=== PATIENT | female | born 2000 | race Caucasian/White ===

== ENCOUNTER 2023-05-27 20:46 | Outpatient (REF) | payer BC, SELFPAY ==
[2023-06-01 11:20] LABS: Age Gdln ACOG Testing Note (.); IGP, rfx Aptima HPV ASCU Note (.)
== END 2023-05-27 20:47 | disposition home or self-care (01) ==
LOC: LAB 20:46
PROVIDERS: Visit Provider Obstetrics & Gynecology
DX: Z12.4 Encounter for screening for malignant neoplasm of cervix (principal); Z11.51 Encounter for screening for human papillomavirus (HPV)
CPT/HCPCS: G0145

== ENCOUNTER 2024-05-29 18:43 | Outpatient (REF) | payer BC, SELFPAY | END 2024-05-29 18:44 | disposition home or self-care (01) | LOC: LAB 18:43 | PROVIDERS: Visit Provider Physician Assistant | DX: Z01.419 Encounter for gynecological examination (general) (routine) without abnormal findings (principal) | CPT/HCPCS: 88175 ==

== ENCOUNTER 2024-07-03 20:38 | Outpatient (REF) | payer BC, SELFPAY | END 2024-07-03 20:39 | disposition home or self-care (01) | LOC: LAB 20:38 | PROVIDERS: Visit Provider Obstetrics & Gynecology | DX: R87.615 Unsatisfactory cytologic smear of cervix (principal) | CPT/HCPCS: 88175 ==

== ENCOUNTER 2025-03-19 08:09 | Outpatient (OUT) | payer BC, SELFPAY ==
--- OUTSIDE RECORDS SUMMARY | 2025-03-19 08:17 | XMS_ITS | CCD ---
Author Organization [facility] Care Team Providers Care Lead Case Manager Name Role Phone Mc RAY Primary Care Physician Danika RUTLEDGE Unavailable Mc Ray MD Primary Care Provider Mc RYA Attending Unavailable Mc RAY Attending Unavailable Mc RAY Attending Unavailable Mc RAY Attending Unavailable Mc RAY Attending Unavailable CARI LINDER Attending Unavailable JESSIE AL Attending Unavailable JESSIE AL Attending Unavailable Allergies Allergy Classification Reported Allergen(s) Allergy Type Date of Onset Reaction(s) Facility (1 source) Amoxicillin; Translations: [amoxicillin] Drug Allergy [facility] Repository (1 source) Clindamycin; Translations: [clindamycin] Drug Allergy [facility] Repository (1 source) Penicillins; Translations: [penicillins] Propensity to adverse reactions (disorder) [facility] Repository (1 source) No Known Medication Allergies; Translations: [No Known Medication Allergies] Propensity to adverse reactions (disorder) [facility] Repository Medications Current Medications Medication Drug Class(es) Dates Sig (Normalized) Sig (Original) etonogestrel 68 mg drug implant (16 sources) Progestin Start: 05-04-2020 inject 1 mg by subcutaneous injection once Nexplanon 68 mg subcutaneous implant mg EA, SubCutaneous, Once, Refills(s) 0 Start Date: 05/04/20 Status: Ordered End: 11-20-2024 etonogestrel-eluting ([place] non) 68 mg contraceptive implant 1 each by Implant route 1 (one) time 11/20/2024 Discontinued (Other) phentermine hydrochloride 37.5 mg oral tablet (14 sources) Sympathomimetic Amine Anorectic Start: 03-30-2024 take 1 tablet by mouth once daily Adipex-P 37.5 mg Tab 37.5 mg = 1 tab(s), Oral, Daily, # 30 tab(s), Refills(s) 0, Pharmacy: [facility] #[id number], 173, cm, 03/30/24 8:25:00 EDT, Height/Length Dosing, 91.2, kg, 03/30/24 8:25:00 EDT, Weight Dosing Start Date: 03/30/24 Status: Ordered Start: 03-06-2024 take 1 tablet by gregor th once daily Adipex-P 37.5 mg Tab 37.5 mg = 1 tab(s), Oral, Daily, # 30 tab(s), Refills(s) 0, Pharmacy: [facility][id number], 173, cm, 03/06/24 8:02:00 EDT, Height/Length Dosing, 91.7, kg, 03/06/24 8:02:00 EDT, Weight Dosing Start Date: 03/06/24 Status: Ordered Start: 02-03-2024 take 1 tablet by gregor once daily Adipex-P 37.5 mg Tab 37.5 mg = 1 tab(s), Oral, Daily, # 30 tab(s), Refills(s) 0, [id number], 173, cm, 02/03/24 8:01:00 EDT, Height/Length Dosing, 93, kg, 02/03/24 8:01:00 EDT, Weight Dosing Start Date: 02/03/24 Status: Ordered Start: 01-22-2023 End: 03-09-2025 take 1 tablet by mouth once daily Adipex-P 37.5 mg Tab 37.5 mg = 1 tab(s), Oral, Daily, # 30 tab(s), Refills(s) 0, Pharmacy: [facility] #[id number], 173, cm, 01/06/24 8:32:00 EST, Height/Length Dosing, 93, kg, 01/06/24 8:32:00 EST, Weight Dosing Start Date: 01/06/24 Status: Ordered Problems Active Problems Problem Classification Problem Date Documented Date Episodic/Chronic Contraceptive and procreative management (1 source) Subcutaneous contraceptive implant present; Translations: [Encounter for surveillance of implantable subdermal contraceptive] 11-20-2024 Episodic Menstrual disorders (1 source) Missed period; Translations: [Irregular menstruation, unspecified] 03-09-2025 Chronic Other and unspecified benign neoplasm (3 sources) Melanocytic nevus of face; Translations: [Melanocytic nevi of unspecified part of face] Onset: 01-22-2023 Episodic Other and unspecified benign neoplasm (4 sources) Benign neoplasm of skin of face 01-22-2023 Episodic Other circulatory disease (6 sources) 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 Other congenital anomalies (6 sources) Non-neoplastic nevus; Translations: [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 Other nutritional; endocrine; and metabolic disorders (20 sources) Obesity; Translations: [Other obesity] Onset: 01-14-2023 Chronic Other nutritional; endocrine; and metabolic disorders (13 sources) Obese class I; Translations: [Body mass index (BMI) 33.0-33.9, adult] Onset: 01-14-2023 Chronic Other nutritional; endocrine; and metabolic disorders (1 source) Overweight in adulthood with body mass index of 25 or more but less than 30; Translations: [Body mass index (BMI) 29.0-29.9, adult] Onset: 05-03-2023 Episodic Other nutritional; endocrine; and metabolic disorders (1 source) Overweight; Translations: [Overweight] Onset: 03-06-2024 Episodic Other and delivery including normal (2 sources) ; Translations: [Encounter for supervision of normal , unspecified, unspecified trimester] 03-09-2025 Episodic Other upper respiratory infections (2 sources) Acute upper respiratory infection; Translations: [Acute upper respiratory infection, unspecified] Onset: 11-04-2023 Episodic Past or Other Problems Problem Classification Problem Date Documented Da te Episodic/Chronic Other screening for suspected conditions (not mental disorders or infectious disease) (1 source) Patient encounter status; Translations: [Unsatisfactory cytologic smear of cervix] 07-03-2024 Episodic Unclassified (12 sources) Patient encounter status 01-14-2023 Results Test Name Value Interpretation Reference Range Facility US OB TRANSVAGINALon 025 US OB TRANSVAGINAL EXAM: US OB TRANSVAG INAL HISTORY: Dating. LMP 01/04/2025. G1. COMPARISON: None available TECHNIQUE: Two-dimensional transvaginal grayscale and color Doppler ultrasound imaging of the pelvis was performed. FINDINGS: The uterus and demonstrates a normal homogeneous echotexture. The cervical os is closed. The right ovary measures 3.8 x 2.2 x 3.8 cm and demonstrates a normal echotexture. There is normal color Doppler flow. The left ovary measures 2.8 x 1.8 x 2.6 cm and demonstrates a normal echotexture. There is normal color Doppler flow. No fluid is present within the cul-de-sac. There is a single, live intrauterine gestation identified with a heart rate of 154 beats per minute and a crown-rump length measurement of 1.3 cm, correlating to a gestational age of 7 weeks 4 days (+/- 5 days). There is no subchorionic hemorrhage visualized. A yolk sac is visualized. IMPRESSION: 1. Single, live intrauterine gestation 9 weeks, 1 days by LMP. Today's ultrasound measurements correlate with a gestational age of 7 weeks 4 days (+/- 5 days). EMILIE by today's ultrasound is 10/22/2025. 2. Normal color Doppler evaluation of the bilateral ovaries. Interpreted by: Electronically signed by ROSELINE CARL II, MD, PHD at 11-Mar-2025 08:55:38 PM [facility] Normal Not Available Comment on above: Order Comment: US OB TRANSVAGINAL No LMP recorded. Patient has had an implant. Insertion/Removal of Contrac eptive Capsuleon 11-20-2024 Shannon Tomas LPN 11/21/2024 8:37 AM Insertion/Removal of Contraceptive Capsule Date/Time: 11/20/2024 2:05 PM Performed by: Jessie Al DO Authorized by: Jessie Al DO Consent: Consent obtained: Written Consent given by: Patient Patient questions answered: yes Patient agrees, verbalizes understanding, and wants to proceed: yes Educational handouts given: no Instructions and paperwork completed: yes Indication: Indication: Presence of non-biodegradable drug delivery implant Pre-procedure: Pre-procedure timeout performed: yes Prepped with: alcohol 70% Local anesthetic: Lidocaine without epinephrine The site was cleaned and prepped in a sterile fashion: yes Procedure: Procedure: Removal Small stab incision was made in arm: yes Left/right: Left Site was closed with steri-strips and pressure bandage applied: yes [facility] JOANNA PAP IMAGE GUIDEDon 06-10 PAP IG (IMAGE GUIDED) Note . [facility] Comment on above: TESTS RESULT FLAG UN ITS REF RANGE LAB Clinician Provided Cytology Information Source.............Cervix;Endocervix No. of containers..01 ThinPrep Vial DIAGNOSIS: 01 NEGATIVE FOR INTRAEPITHELIAL LESION OR MALIGNANCY. Specimen adequacy: 01 Satisfactory for evaluation. Endocervical and/or squamous metaplastic cells (endocervical component) are present. Performed by: Trinity Schmidt, Purchasing/Receiving ([facility]) . 01 Note: Note 01 The Pap smear is a screening test designed to aid in the detection of premalignant and malignant conditions of the uterine cervix. It is not a diagnostic procedure and should not be used as the sole means of detecting cervical cancer. Both false-positive and false-negative reports do occur. Test Methodology: Note 01 This liquid based ThinPrep(R) pap test was screened with the use of an image guided system. FLAG LEGEND: L-Low Normal,H-High Normal,LL-Alert Low,HH-Alert High <-Panic Low,>-Panic High,A-Abnormal,AA-Critical Abnormal Performed at: [address] [place] [address], [address] [address] Gabi Graves MD, Performed at: [facility] Nathan Stringer [address] [id number] [employer]: Gabi Graves MD, Phone: [phone] BRUSH-SPATULA CERVIX ENDOCERVIX [facility] Ambulatory Visit Summaryon 0 05-04-2024 Ambulatory Visit Summary Ambulatory Visit Summary ALEJO OVERTON :2000 Visit Date:05/04/2024 Ambulatory Visit Instructions Your Diagnosis Compound nevus of face Class 1 obesity due to excess calories with serious comorbidity and body mass index (BMI) of 30.0 to 30.9 in adult BMI 30.0-30.9,adult, Body mass index [BMI] 30.0-30.9, adult Your Care Team Attending Physician - Mc RAY DO, FAAFP Primary Care Physician - Mc RAY DO, FAAFP This Is Your Medications List Contact prescribing physician if questions or concerns etonogestrel (Nexplanon 68 mg subcutaneous implant) phentermine (Adipex-P 37.5 mg Tab) Procedures Performed None. Discharge Vitals Temperature (Oral) 36.6 ?C Heart Rate (Peripheral) 78 Respiratory Rate 16 Blood Pressure 120/70 Height 173 cm Height 68 in Weight 90.8 kg Weight 199.76 lb BMI 30.34 What to do next You Need to Schedule the Following Appointments Follow Up with Mc RAY DO, FAAFP, DAE, PED When: In 6 months Where: [address] [facility], [place] [address]- Medications What How Much When Why Instructions Unchanged etonogestrel (Nexplanon 68 mg subcutaneous implant) Subcutaneous Once Contact prescribing physician if questions or concerns Unchanged phentermine (Adipex-P 37.5 mg Tab) 1 Tablets By Mouth Every day Other obesity Contact prescribing physician if questions or concerns Allergies No Known Medication Allergies Problems Ongoing - Any problem that you are currently receiving treatment for. Compound nevus of face Historical - Any problem that you are no longer receiving treatment for. Other obesity School physical exam Patient Survey You may receive a survey via text or e-mail asking about your office visit. Please share your experience with us by completing your survey. We appreciate your feedback and thank you for choosing us for your care. Education Materials Exercising to Lose Weight Getting regular exercise is important for everyone. It is especially important if you are overweight. Being overweight increases your risk of heart disease, stroke, diabetes, high blood pressure, and several types of cancer. Exercising, and reducing the calories you consume, can help you lose weight and improve fitness and health. Exercise can be moderate or vigorous intensity. To lose weight, most people need to do a certain amount of moderate or vigorous-intensity exercise each week. How can exercise affect me? You lose weight when you exercise enough to burn more calories than you eat. Exercise also reduces body fat and builds muscle. The more muscle you have, the more calories you burn. Exercise also: ? Improves mood. ? Reduces stress and tension. ? Improves your overall fitness, flexibility, and endurance. ? Increases bone strength. Moderate-intensity exercise Moderate-intensity exercise is any activity that gets you moving enough to burn at least three times more energy (calories) than if you were sitting. Examples of moderate exercise include: ? Walking a mile in 15 minutes. ? Doing light yard work. ? Biking at an easy pace. Most people should get at least 150 minutes of moderate-intensity exercise a week to maintain their body weight. Vigorous-intensity exercise Vigorous-intensity exercise is any activity that gets you moving enough to burn at least six times more calories than if you were sitting. When you exercise at this intensity, you should be working hard enough that you are not able to carry on a conversation. Examples of vigorous exercise include: ? Running. ? Playing a team sport, such as football, basketball, and soccer. ? Jumping rope. Most people should get at least 75 minutes a week of vigorous exercise to maintain their body weight. What actions can I take to lose weight? The amount of exercise you need to lose weight depends on: ? Your age. ? The type of exercise. ? Any health conditions you have. ? Your overall physical ability. Talk to your health care provider about how much exercise you need and what types of activities are safe for you. Nutrition ? Make changes to your diet as told by your health care provider or diet and energy efficiency specialist (dietitian). This may include: ? Eating fewer calories. ? Eating more protein. ? Eating less unhealthy fats. ? Eating a diet that includes fresh fruits and vegetables, whole grains, low-fat dairy products, and lean protein. ? Avoiding foods with added fat, salt, and sugar. ? Drink plenty of water while you exercise to prevent dehydration or heat stroke. Activity ? Choose an activity that you enjoy and set realistic goals. Your health care provider can help you make an exercise plan that works for you. ? Exercise at a moderate or vigorous intensity most days of the week. ? The intensity of exercise may (more content not included)... Normal [facility] Family Medicine Office/Clini c Noteon 05-04-2024 Family Medicine Office/Clinic Note Family Medicine Office/Clinic Note Chief Complaint Finished Adipex #6. Down another 1 lb. BMI- 30.34 History of Present Illness Pt denies any SE's from Adipex Denies any chest pain, pressure, SOB, insomnia nor headache Feels much better on the Adipex with more energy No constipation No difficulty with urination OARRS reviewed and no problems identified Review of Systems PHQ Score Initial Depression Screen Score: 0 SCORE ROS - Provider Constitutional: no fever, no chills, no sweats, no weakness. Skin: no Jaundice, no rash, no lesions, no petechiae. ENMT: no ear pain, no sore throat, no congestion, no hoarseness. Respiratory: no shortness of breath, no cough, no orthopnea, no wheezing. Cardiovascular: no chest pain, no palpitations, no edema. Gastrointestinal: no nausea, no vomiting, no diarrhea, no GI bleeding.no constipationnoheartburn Genitourinary: no dysuria, no hematuria, no discharge, no pain.nofreq/urgency Musculoskeletal: no back pain, no trauma.nojoint pain Neurologic: no headache, no dizziness, no numbness, no weakness. Psychiatric: no sleeping problems, no irritability, no mood swings/depression. Heme/Lymph: no bleeding tendency, no bruising tendency, no petechiae, no swollen lymph nodes no Allergy/Imunology no seasonal allergies, no food allergies, no recurrent infections, no impaired immunity. Additional ROS info: Except as noted in the above Review of Systems and in the History of Present Illness all other systems have been reviewed and are negative or noncontributory. Physical Exam Vitals & Measurements T: 36.6 ?C(Oral) HR: 78(Peripheral) RR: 16 BP: 120/70 SpO2: 99% HT: 68 in HT: 173 cm WT: 90.8 kg WT: 199.76 lb BMI: 30.34 General: Well developed, well nourished, in no acute distress Mouth: Mucous membranes moist. Normal oropharynx, and posterior pharynx without lesions or exudates. Tongue normal Neck: Neck supple. No masses or palpable cervical nodes. Trachea midline. Thyroid without nodules, masses, tenderness, or enlargement Lungs: Normal respiratory effort and clear to auscultation Cardio: Regular rate and rhythm, normal S1 and S2, no murmur, no rub Abdomen: Soft, non-distended, non-tender. no G/R/S/Masses Musculoskeletal: No deformity or scoliosis noted. Normal range of motion. Joints normal. No erythema, edema, effusion, or ecchymosis Extremity: No clubbing, cyanosis, edema, or deformity, with normal ROM in both upper and lower bilateral extremities Neurologic: Grossly normal Skin: No rashes, ulcerations, or suspicious lesions Mental Status: Alert and oriented x3. Normal mood and affect Assessment/Plan 1. 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 Class 1 obesity due to excess calories with serious comorbidity and body mass index (BMI) of 30.0 to 30.9 in adult (E66.09: Other obesity due to excess calories) Diet and exercise BMI: 25, unable to continue Adipex as has lost approximately 3% 3 months The standard range for ages 18 and older is >=18.5 and < 25 kg/m2. Your BMI today was above this range, this falls in the overweight to obese category and there are medical benefits to weight loss. We can offer counselling, referral, and/or medical support in addressing this problem. Your BMI and weight management will be followed at subsequent visits. 3. BMI 30.0-30.9,adult, (Z68.30: Body mass index [BMI] 30.0-30.9, adult)Body mass index [BMI] 30.0-30.9, adult Total time spent preparing the chart, conducting of the encounter with the patient and family and time spent documenting, reviewing, and ordering tests was 20 minutes. Follow-up With When Contact Information AURELIO BAJWA FAAFP, [place], DAE, PED In 6 months [address] [facility], [place] [address]- Additional Instructions: Patient Education Exercising to Lose Weight Problem List/Past Medical History Ongoing Compound nevus of face Historical Other obesity School physical exam Procedure/Surgical History None. Medications Adipex-P 37.5 mg Tab, 37.5 mg= 1 tab(s), Oral, Daily Nexplanon 68 mg subcutaneous implant, SubCutaneous, Once Allergies No Known Medication Allergies Social History Alcohol - Denies Alcohol Use, 05/04/2020 Tobacco - Denies Tobacco Use, 08/11/2021 Never (less than 100 in lifetime) Tobacco Use:. Never Smokeless Tobacco Use:., 05/04/2024 Family History Family history is negative Immunizations Vaccine Date Status Comments influenza virus vaccine, inactivated - Not Given Patient Refuses influenza virus vaccine, inactivated 09/18/2020 Recorded diphtheria/pertussis, acel/tetanus adult 05/04/2020 Given tetanus toxoid 05/04/2020 Recorded meningococcal group B vaccine 07/22/2017 Recorded meningococcal conjugate vaccine 07/22/2017 Recorded meningococcal conjugate vaccine 07/20/2012 Recorded human papillomavirus vaccine 07/20/2012 Recorded diphtheria/pertussis, acel/tetanus ped 0 (more content not included)... Normal [facility] Comment on above: Result Comment: Elec tronically Signed By: Mc RAY DO, FAAFP\.br\Date and Time Signed: 05/04/24 08:49 EDT Ambulatory Visit Summaryon 0 03-30-2024 Ambulatory Visit Summary ALEJO OVERTON :2000 Visit Date:03/30/2024 Ambulatory Visit Instructions Your Diagnosis Compound nevus of face Class 1 obesity due to excess calories with serious comorbidity and body mass index (BMI) of 30.0 to 30.9 in adult BMI 30.0-30.9,adult, Body mass index [BMI] 30.0-30.9, adult Other obesity Your Care Team Attending Physician - Mc RAY DO, FAAFP Primary Care Physician - Mc RAY DO, FAAFP This Is Your Medications List etonogestrel (Nexplanon 68 mg subcutaneous implant) phentermine (Adipex-P 37.5 mg Tab) Procedures Performed None. Discharge Vitals Temperature (Oral) 36.6 ?C Heart Rate (Peripheral) 80 Respiratory Rate 16 Blood Pressure 118/72 Height 173 cm Height 68 in Weight 91.2 kg Weight 200.64 lb BMI 30.47 What to do next Scheduled Follow-Up Appointments 2023 8:20 AM EDT With: Mc RAY DO, FAAFP Where: [facility] Primary Care Normal [facility] Family Medicine Office/Clini c Noteon 03-30-2024 Family Medicine Office/Clinic Note Chief Complaint Adipex #6. Down another 1 lb. BMI- 30.47 History of Present Illness Pt denies any SE's from Adipex Denies any chest pain, pressure, SOB, insomnia nor headache Feels much better on the Adipex with more energy No constipation No difficulty with urination OARRS reviewed and no problems identified Review of Systems PHQ Score Initial Depression Screen Score: 0 SCORE ROS - Provider Constitutional: no fever, no chills, no sweats, no weakness. Skin: no Jaundice, no rash, no lesions, no petechiae. ENMT: no ear pain, no sore throat, no congestion, no hoarseness. Respiratory: no shortness of breath, no cough, no orthopnea, no wheezing. Cardiovascular: no chest pain, no palpitations, no edema. Gastrointestinal: no nausea, no vomiting, no diarrhea, no GI bleeding.no constipationnoheartburn Genitourinary: no dysuria, no hematuria, no discharge, no pain.nofreq/urgency Musculoskeletal: no back pain, no trauma.nojoint pain Neurologic: no headache, no dizziness, no numbness, no weakness. Psychiatric: no sleeping problems, no irritability, no mood swings/depression. Heme/Lymph: no bleeding tendency, no bruising tendency, no petechiae, no swollen lymph nodes no Allergy/Imunology no seasonal allergies, no food allergies, no recurrent infections, no impaired immunity. Additional ROS info: Except as noted in the above Review of Systems and in the History of Present Illness all other systems have been reviewed and are negative or noncontributory. Physical Exam Vitals & Measurements T: 36.6 ?C(Oral) HR: 80(Peripheral) RR: 16 BP: 118/72 SpO2: 99% HT: 68 in HT: 173 cm WT: 91.2 kg WT: 200.64 lb BMI: 30.47 General: Well developed, well nourished, in no acute distress Mouth: Mucous membranes moist. Normal oropharynx, and posterior pharynx without lesions or exudates. Tongue normal Neck: Neck supple. No masses or palpable cervical nodes. Trachea midline. Thyroid without nodules, masses, tenderness, or enlargement Lungs: Normal respiratory effort and clear to auscultation Cardio: Regular rate and rhythm, normal S1 and S2, no murmur, no rub Abdomen: Soft, non-distended, non-tender. no G/R/S/Masses Musculoskeletal: No deformity or scoliosis noted. Normal range of motion. Joints normal. No erythema, edema, effusion, or ecchymosis Extremity: No clubbing, cyanosis, edema, or deformity, with normal ROM in both upper and lower bilateral extremities Neurologic: Grossly normal Skin: No rashes, ulcerations, or suspicious lesions except approximately 2 to 3 mm compound nevus left mid frontal area unchanged. Mental Status: Alert and oriented x3. Normal mood and affect Assessment/Plan 1. 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 Class 1 obesity due to excess calories with serious comorbidity and body mass index (BMI) of 30.0 to 30.9 in adult (E66.09: Other obesity due to excess calories) The standard range for ages 18 and older is >=18.5 and < 25 kg/m2. Your BMI today was above this range, this falls in the overweight to obese category and there are medical benefits to weight loss. We can offer counselling, referral, and/or medical support in addressing this problem. Your BMI and weight management will be followed at subsequent visits. 3. BMI 30.0-30.9,adult, (Z68.30: Body mass index [BMI] 30.0-30.9, adult)Body mass index [BMI] 30.0-30.9, adult The standard range for ages 18 and older is >=18.5 and < 25 kg/m2. Your BMI today was above this range, this falls in the overweight to obese category and there are medical benefits to weight loss. We can offer counselling, referral, and/or medical support in addressing this problem. Your BMI and weight management will be followed at subsequent visits. Other obesity (E66.8: Other obesity) Ordered: phentermine, 37.5 mg = 1 tab(s), Oral, Daily, # 30 tab(s), Refills(s) 0, Pharmacy: [facility][id number], 173, cm, 03/30/24 8:25:00 EDT, Height/Length Dosing, 91.2, kg, 03/30/24 8:25:00 EDT, Weight Dosing Total time spent preparing the chart, conducting of the encounter with the patient and family and time spent documenting, reviewing, and ordering tests was 20 minutes. Review of Prior External Notes and Results:The following documents and/or results were reviewed on this visit which are external to my provider group and/or outside of my specialty: Labs: _, _, _, _, _, _ Radiology: _, _, _, _, _, _, Records Reviewed: OARRS Reviewed, _, _, _, _, _, Other Testing: Follow-up With When Contact Information Mc RAY DO, FAAFP, DAE, PED In [address] [place] [address]- Additional Instructions: Patient Education BMI for Adults Problem List/Past Medical History Ongoing Compound nevus of face Historical Other obesity School physical exam Procedure/Surgical History None. Medications Adipex-P 37.5 mg Tab, 37.5 mg= 1 tab(s), Oral, Daily Nexplanon 68 mg subcutaneous implant, SubCutaneou (more content not included)... Normal [facility] Comment on above: Result Comment: Elec tronically Signed By: Mc RAY DO, FAAFP\.br\Date and Time Signed: 03/30/24 08:47 EDT Patient Educationon 03-30-20 Patient Education Nutrition BMI for Adults What is BMI? Body mass index (BMI) is a number that is calculated from a person's weight and height. BMI can help estimate how much of a person's weight is composed of fat. BMI does not measure body fat directly. Rather, it is an alternative to procedures that directly measure body fat, which can be difficult and expensive. BMI can help identify people who may be at higher risk for certain medical problems. What are BMI measurements used for? BMI is used as a screening tool to identify possible weight problems. It helps determine whether a person is obese, overweight, a healthy weight, or underweight. BMI is useful for: ? Identifying a weight problem that may be related to a medical condition or may increase the risk for medical problems. ? Promoting changes, such as changes in diet and exercise, to help reach a healthy weight. BMI screening can be repeated to see if these changes are working. How is BMI calculated? BMI involves measuring your weight in relation to your height. Both height and weight are measured, and the BMI is calculated from those numbers. This can be done either in [place] ([place] or metric measurements. Note that charts and online BMI calculators are available to help you find your BMI quickly and easily without having to do these calculations yourself. To calculate your BMI in [place] measurements: 1. Measure your weight in pounds (lb). 2. Multiply the number of pounds by 703. ? For example, for a person who weighs 180 lb, multiply that number by 703, which equals 126,540. 3. Measure your height in inches. Then multiply that number by itself to get a measurement called inches squared. ? For example, for a person who is 70 inches tall, the inches squared measurement is 70 inches x 70 inches, which equals 4,900 inches squared. 4. Divide the total from step 2 (number of lb x 703) by the total from step 3 (inches squared): 126,540 ? 4,900 = 25.8. This is your BMI. To calculate your BMI in metric measurements: 1. Measure your weight in kilograms (kg). 2. Measure your height in meters (m). Then multiply that number by itself to get a measurement called meters squared. ? For example, for a person who is 1.75 m tall, the meters squared measurement is 1.75 m x 1.75 m, which is equal to 3.1 meters squared. 3. Divide the number of kilograms (your weight) by the meters squared number. In this example: 70 ? 3.1 = 22.6. This is your BMI. What do the results mean? BMI charts are used to identify whether you are underweight, normal weight, overweight, or obese. The following guidelines will be used: ? Underweight: BMI less than 18.5. ? Normal weight: BMI between 18.5 and 24.9. ? Overweight: BMI between 25 and 29.9. ? Obese: BMI of 30 or above. Keep these notes in mind: ? Weight includes both fat and muscle, so someone with a muscular build, such as an athlete, may have a BMI that is higher than 24.9. In cases like these, BMI is not an accurate measure of body fat. ? To determine if excess body fat is the cause of a BMI of 25 or higher, further assessments may need to be done by a health care provider. ? BMI is usually interpreted in the same way for men and women. Where to find more information For more information about BMI, including tools to quickly calculate your BMI, go to these websites: ? Centers for Disease Control and Prevention: www.cdc.gov ? [place] [employer]: www.heart.org ? National Heart, Lung, and [facility] [place]: www.nhlbi.nih.gov Summary ? Body mass index (BMI) is a number that is calculated from a person's weight and height. ? BMI may help estimate how much of a person's weight is composed of fat. BMI can help identify those who may be at higher risk for certain medical problems. ? BMI can be measured using Indonesian measurements or metric measurements. ? BMI charts are used to identify whether you are underweight, normal weight, overweight, or obese. This information is not intended to replace advice given to you by your health care provider. Make sure you discuss any questions you have with your health care provider. Document Revised: 07/17/2020 Document Reviewed: 05/24/2020 [employer]in Patient Education ? [address] [facility] Ambulatory Visit Summaryon 0 03-06-2024 Ambulatory Visit Summary ALEJO OVERTON :2000 Visit Date:03/06/2024 Ambulatory Visit Instructions Your Diagnosis Compound nevus of face Overweight BMI 30.0-30.9,adult Other obesity Your Care Team Attending Physician - Mc RAY DO, FAAFP Primary Care Physician - Mc RAY DO, FAAFP This Is Your Medications List etonogestrel (Nexplanon 68 mg subcutaneous implant) phentermine (Adipex-P 37.5 mg Tab) Procedures Performed None. Discharge Vitals Temperature (Oral) 36.5 ?C Heart Rate (Peripheral) 76 Respiratory Rate 16 Blood Pressure 116/70 Height 173 cm Height 68 in Weight 91.7 kg Weight 201.74 lb BMI 30.64 What to do next Scheduled Follow-Up Appointments 2023 8:20 AM EDT With: Mc RAY DO, FAAFP Where: [facility] Normal [address] [place] [address]- \.br\ You Need to Schedule the Following Appointments\. br\ Follow Up with Mc RAY DO, FAAFP, DAE, PED When: In 1 month\.br\ Where:\.br\ [address]\ [place] [address].br\ \.br\ Medications\.b r\ What How Much When Why Instructions\. br\ Unchanged etonogestrel (Nexplanon 68 mg subcutaneous implant) Subcutaneous Once\.br\ Unchanged phentermine (Adipex-P 37.5 mg Tab) 1 Tablets By Mouth Every day Other obesity Pickup at [facility] #[id number]\.br\ Pharmacy Information\.b r\ [facility] #[id number]: [address], [place] [id number] [phone]\.br\ Allergies\.br\ No Known Medication Allergies\.br\ Problems\.br\ Ongoing - Any problem that you are currently receiving treatment for.\.br\ Compound nevus of face\.br\ Historical - Any problem that you are no longer receiving treatment for.\.br\ Other obesity\.br\ School physical exam\.br\ Patient Survey\.br\ You may receive a survey via text or e-mail asking about your office visit. Please share your experience with us by completing your survey. We appreciate your feedback and thank you for choosing us for your care.\.br\ Education Materials\.br\ Exercising to Lose Weight\.br\ Getting regular exercise is important for everyone. It is especially important if you are overweight. Being overweight increases your risk of heart disease, stroke, diabetes, high blood pressure, and several types of cancer. Exercising, and reducing the calories you consume, can help you lose weight and improve fitness and health.\.br\ Exercise can be moderate or vigorous intensity. To lose weight, most people need to do a certain amount of moderate or vigorous-inten sity exercise each week.\.br\ How can exercise affect me?\.br\ You lose weight when you exercise enough to burn more calories than you eat. Exercise also reduces body fat and builds muscle. The more muscle you have, the more calories you burn. Exercise also:\.br\ ? \.br\ Improves mood.\.br\ ? \.br\ Reduces stress and tension.\.br\ ? \.br\ Improves your overall fitness, flexibility, and endurance.\.br \ ? \.br\ Increases bone strength.\.br\ Moderate-inten sity exercise\.br\ \.br\ Moderate-inten sity exercise is any activity that gets you moving enough to burn at least three times more energy (calories) than if you were sitting.\.br\ Examples of moderate exercise include:\.br\ ? \.br\ Walking a mile in 15 minutes.\.br\ ? \.br\ Doing light yard work.\.br\ ? \.br\ Biking at an easy pace.\.br\ Most people should get at least 150 minutes of moderate-inten sity exercise a week to maintain their body weight.\.br\ Vigorous-inten sity exercise\.br\ Vigorous-inten sity exercise is any activity that gets you moving enough to burn at least six times more calories than if you were sitting. When you exercise at this intensity, you should be working hard enough that you are not able to carry on a conversation.\ .br\ Examples of vigorous exercise include:\.br\ ? \.br\ Running.\.br\ ? \.br\ Playing a team sport, such as football, basketball, and soccer.\.br\ ? \.br\ Jumping rope.\.br\ Most people should get at least 75 minutes a week of vigorous exercise to maintain their body weight.\.br\ What actions can I take to lose weight?\.br\ The amount of exercise you need to lose weight depends on:\.br\ ? \.br\ Your age.\.br\ ? \.br\ The type of exercise.\.br\ ? \.br\ Any health conditions you have.\.br\ ? \.br\ Your overall physical ability.\.br\ Talk to your health care provider about how much exercise you need and what types of activities are safe for you.\.br\ Nutrition\.br\ \.br\ ? \.br\ Make changes to your diet as told by your health care provider or diet and energy efficiency specialist (dietitian). This may include:\.br\ ? \.br\ Eating fewer calories.\.br\ ? \.br\ Eating more protein.\.br\ ? \.br\ Eating less unhealthy fats.\.br\ ? \.br\ Eating a diet that includes fresh fruits and vegetables, whole grains, low-fat dairy products, and lean protein.\.br\ ? \.br\ Avoiding foods with added fat, salt, and sugar.\.br\ ? \.br\ Drink plenty of water while you exercise to prevent dehydration or heat stroke.\.br\ Activity\.br\ ? \.br\ Choose an activity that you enjoy and set realistic goals. Your health care provider can help you make an exercise plan that works for you.\.br\ ? \.br\ Exercise at a moderate or vigorous intensity most days of the week.\.br\ ? \.br\ The intensity of exercise may vary from person to person. You can tell how intense a workout is for you by paying attention to your breathing and heartbeat. Most people will notice their breathing and heartbeat get faster with more intense exercise.\.br\ ? \.br\ Do resistance training twice each week, such as:\.br\ ? \.br\ Push-ups.\.br\ ? \.br\ Sit-ups.\.br\ ? \.br\ Lifting weights.\.br\ ? \.br\ Using resistance bands.\.br\ ? \.br\ Getting short amounts of exercise can be just as helpful as long, structured periods of exercise. If you have trouble finding time to exercise, try doing these things as part of your daily routine:\.br\ ? \.br\ Get up, stretch, and walk around every 30 minutes throughout the day.\.br\ ? \.br\ Go for a walk during your lunch break.\.br\ ? \.br\ Park your car farther away from your destination.\. br\ ? \.br\ If you take public transportation , get off one stop early and walk the rest of the way.\.br\ ? \.br\ Make phone calls while standing up and walking around.\.br\ ? \.br\ Take the stairs instead of elevators or escalators.\.b r\ ? \.br\ Wear comfortable clothes and shoes with good support.\.br\ ? \.br\ Do not exercise so much that you hurt yourself, feel dizzy, or get very short of breath.\.br\ Where to find more information\.b r\ ? \.br\ U.S. Department of Health and Human Services: www.[facility].gov\.b r\ ? \.br\ Centers for Disease Control and Prevention: www.cdc.gov\.b r\ Contact a health care provider:\.br\ ? \.br\ Before starting a new exercise program.\.br\ ? \.br\ If you have questions or concerns about your weight.\.br\ ? \.br\ If you have a medical problem that keeps you from exercising.\.b r\ Get help right away if:\.br\ ? \.br\ You have any of the following while exercising:\.b r\ ? \.br\ Injury.\.br\ ? \.br\ Dizziness.\.br \ ? \.br\ Difficulty breathing or shortness of breath that does not go away when you stop exercising.\.b r\ ? \.br\ Chest pain.\.br\ ? \.br\ Rapid heartbeat.\.br \ These symptoms may represent a serious problem that is an emergency. Do not wait to see if the symptoms will go away. Get medical help right away. Call your local emergency services (911 in the [place] Do not drive yourself to the hospital.\.br\ Summary\.br\ ? \.br\ Getting regular exercise is especially important if you are overweight.\.b r\ ? \.br\ Being overweight increases your risk of heart disease, stroke, diabetes, high blood pressure, and several types of cancer.\.br\ ? \.br\ Losing weight happens when you burn more calories than you eat.\.br\ ? \.br\ Reducing the amount of calories you eat, and getting regular moderate or vigorous exercise each week, helps you lose weight.\.br\ This information is not intended to replace advice given to you by your health care provider. [facility] Family Medicine Office/Clini c Noteon 03-06-2024 Family Medicine Office/Clinic Note Chief Complaint Adipex #5. Down 3 lbs. BMI- 30.64 History of Present Illness Pt denies any SE's from Adipex Denies any chest pain, pressure, SOB, insomnia nor headache Feels much better on the Adipex with more energy No constipation No difficulty with urination OARRS reviewed and no problems identified Here for follow up Have you had any ER visits or any hospitalizations since last visit? no Are you compliant with your medications and no difficulty affording your medications? yes Do you have side effects from the medication? no Are you compliant with your diet? yes Do you exercise? 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 Chest pain? no Palpitations? no MAZARIEGOS/SOB? no Orthopnea? no PND? no Edema? no Have you had any recent cardiopulmonary testing? no Review of Systems PHQ Score Initial Depression Screen Score: 0 SCORE ROS - Provider Constitutional: no fever, no chills, no sweats, no weakness. Skin: no Jaundice, no rash, no lesions, no petechiae. ENMT: no ear pain, no sore throat, no congestion, no hoarseness. Respiratory: no shortness of breath, no cough, no orthopnea, no wheezing. Cardiovascular: no chest pain, no palpitations, no edema. Gastrointestinal: no nausea, no vomiting, no diarrhea, no GI bleeding.no constipationnoheartburn Genitourinary: no dysuria, no hematuria, no discharge, no pain.nofreq/urgency Musculoskeletal: no back pain, no trauma.nojoint pain Neurologic: no headache, no dizziness, no numbness, no weakness. Psychiatric: no sleeping problems, no irritability, no mood swings/depression. Heme/Lymph: no bleeding tendency, no bruising tendency, no petechiae, no swollen lymph nodes no Allergy/Imunology no seasonal allergies, no food allergies, no recurrent infections, no impaired immunity. Additional ROS info: Except as noted in the above Review of Systems and in the History of Present Illness all other systems have been reviewed and are negative or noncontributory. Physical Exam Vitals & Measurements T: 36.5 ?C(Oral) HR: 76(Peripheral) RR: 16 BP: 116/70 SpO2: 99% HT: 68 in HT: 173 cm WT: 91.7 kg WT: 201.74 lb BMI: 30.64 General: Well developed, well nourished, in no acute distress Mouth: Mucous membranes moist. Normal oropharynx, and posterior pharynx without lesions or exudates. Tongue normal Neck: Neck supple. No masses or palpable cervical nodes. Trachea midline. Thyroid without nodules, masses, tenderness, or enlargement Lungs: Normal respiratory effort and clear to auscultation Cardio: Regular rate and rhythm, normal S1 and S2, no murmur, no rub Abdomen: Soft, non-distended, non-tender. no G/R/S/Masses Musculoskeletal: No deformity or scoliosis noted. Normal range of motion. Joints normal. No erythema, edema, effusion, or ecchymosis Extremity: No clubbing, cyanosis, edema, or deformity, with normal ROM in both upper and lower bilateral extremities Neurologic: Grossly normal Skin: No rashes, ulcerations, or suspicious lesions Mental Status: Alert and oriented x3. Normal mood and affect Assessment/Plan 1. 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 Overweight (E66.3: Overweight) Diet and exercise BMI goal of 25 along with Adipex working well 3. BMI 30.0-30.9,adult (Z68.30: Body mass index [BMI] 30.0-30.9, adult) The standard range for ages 18 and older is >=18.5 and < 25 kg/m2. Your BMI today was above this range, this falls in the overweight to obese category and there are medical benefits to weight loss. We can offer counselling, referral, and/or medical support in addressing this problem. Your BMI and weight management will be followed at subsequent visits. Other obesity (E66.8: Other obesity) Ordered: phentermine, 37.5 mg = 1 tab(s), Oral, Daily, # 30 tab(s), Refills(s) 0, Pharmacy: [facility] #[id number], 173, cm, 03/06/24 8:02:00 EDT, Height/Length Dosing, 91.7, kg, 03/06/24 8:02:00 EDT, Weight Dosing Review of Prior External Notes and Results:The following documents and/or results were reviewed on this visit which are external to my provider group and/or outside of my specialty: Labs: _, _, _, _, _, _ Radiology: _, _, _, _, _, _, Records Reviewed: OARRS Reviewed, _, _, _, _, _, Other Testing: Follow-up With When Contact Information Mc RAY DO, FAAFP, FAM, PED In 1 month [address], [place] [address]- Additional Instructions: Patient Education Exercising to Lose Weight Problem List/Past Medical History Ongoing Compound nevus of face Historical Other obesity School physical exam Procedure/Surgical History None. Medications Adipex-P 37.5 mg Tab, 37.5 mg= 1 tab(s), Oral, Daily Nexplanon 68 mg subcutaneous implant, SubCutaneous, Once Allergies No Known Medication Allergies Social History Alcohol - Denies (more content not included)... Normal [facility] Comment on above: Result Comment: Elec tronically Signed By: Mc RAY DO, FAAFP\.br\Date and Time Signed: 03/06/24 08:20 EDT Patient Educationon 03-06-20 24 Patient Education Physical Medicine an d Rehabilitation Exercising to Lose Weight Getting regular exercise is important for everyone. It is especially important if you are overweight. Being overweight increases your risk of heart disease, stroke, diabetes, high blood pressure, and several types of cancer. Exercising, and reducing the calories you consume, can help you lose weight and improve fitness and health. Exercise can be moderate or vigorous intensity. To lose weight, most people need to do a certain amount of moderate or vigorous-intensity exercise each week. How can exercise affect me? You lose weight when you exercise enough to burn more calories than you eat. Exercise also reduces body fat and builds muscle. The more muscle you have, the more calories you burn. Exercise also: ? Improves mood. ? Reduces stress and tension. ? Improves your overall fitness, flexibility, and endurance. ? Increases bone strength. Moderate-intensity exercise Moderate-intensity exercise is any activity that gets you moving enough to burn at least three times more energy (calories) than if you were sitting. Examples of moderate exercise include: ? Walking a mile in 15 minutes. ? Doing light yard work. ? Biking at an easy pace. Most people should get at least 150 minutes of moderate-intensity exercise a week to maintain their body weight. Vigorous-intensity exercise Vigorous-intensity exercise is any activity that gets you moving enough to burn at least six times more calories than if you were sitting. When you exercise at this intensity, you should be working hard enough that you are not able to carry on a conversation. Examples of vigorous exercise include: ? Running. ? Playing a team sport, such as football, basketball, and soccer. ? Jumping rope. Most people should get at least 75 minutes a week of vigorous exercise to maintain their body weight. What actions can I take to lose weight? The amount of exercise you need to lose weight depends on: ? Your age. ? The type of exercise. ? Any health conditions you have. ? Your overall physical ability. Talk to your health care provider about how much exercise you need and what types of activities are safe for you. Nutrition ? Make changes to your diet as told by your health care provider or diet and energy efficiency specialist (dietitian). This may include: ? Eating fewer calories. ? Eating more protein. ? Eating less unhealthy fats. ? Eating a diet that includes fresh fruits and vegetables, whole grains, low-fat dairy products, and lean protein. ? Avoiding foods with added fat, salt, and sugar. ? Drink plenty of water while you exercise to prevent dehydration or heat stroke. Activity ? Choose an activity that you enjoy and set realistic goals. Your health care provider can help you make an exercise plan that works for you. ? Exercise at a moderate or vigorous intensity most days of the week. ? The intensity of exercise may vary from person to person. You can tell how intense a workout is for you by paying attention to your breathing and heartbeat. Most people will notice their breathing and heartbeat get faster with more intense exercise. ? Do resistance training twice each week, such as: ? Push-ups. ? Sit-ups. ? Lifting weights. ? Using resistance bands. ? Getting short amounts of exercise can be just as helpful as long, structured periods of exercise. If you have trouble finding time to exercise, try doing these things as part of your daily routine: ? Get up, stretch, and walk around every 30 minutes throughout the day. ? Go for a walk during your lunch break. ? Park your car farther away from your destination. ? If you take public transportation, get off one stop early and walk the rest of the way. ? Make phone calls while standing up and walking around. ? Take the stairs instead of elevators or escalators. ? Wear comfortable clothes and shoes with good support. ? Do not exercise so much that you hurt yourself, feel dizzy, or get very short of breath. Where to find more information ? U.[place]. Department of Health and Human Services: www.hhs.gov ? Centers for Disease Control and Prevention: www.cdc.gov Contact a health care provider: ? Before starting a new exercise program. ? If you have questions or concerns about your weight. ? If you have a medical problem that keeps you from exercising. Get help right away if: ? You have any of the following while exercising: ? Injury. ? Dizziness. ? Difficulty breathing or shortness of breath that does not go away when you stop exercising. ? Chest pain. ? Rapid heartbeat. These symptoms may represent a serious problem that is an emergency. Do not wait to see if the symptoms will go away. Get medical help right away. Call your local emergency services (911 in the [place] Do not drive yourself to the hospital. Summary ? Getting regular exercise is e (more content not included)... Normal [facility] Ambulatory Visit Summaryon 0 02-03-2024 Ambulatory Visit Summary ALEJO OVERTON :2000 Visit Date:02/03/2024 Ambulatory Visit Instructions Your Diagnosis Compound nevus of face BMI 31.0-31.9,adult Other obesity Your Care Team Attending Physician - Mc RAY DO, FAAFP Primary Care Physician - Mc RAY DO, FAAFP This Is Your Medications List etonogestrel (Nexplanon 68 mg subcutaneous implant) phentermine (Adipex-P 37.5 mg Tab) Procedures Performed None. Discharge Vitals Temperature (Oral) 36.6 ?C Heart Rate (Peripheral) 80 Respiratory Rate 16 Blood Pressure 112/72 Height 173 cm Height 68 in Weight 93.0 kg Weight 204.6 lb BMI 31.07 Medications What How Much When Why Instructions Unchanged etonogestrel (Nexplanon 68 mg subcutaneous implant) Subcutaneous Once Unchanged phentermine (Adipex-P 37.5 mg Tab) 1 Tablets By Mouth Every day Other obesity Pickup at [id number] Pharmacy Information [id number]: [address], [place] [id number] [phone] Allergies No Known Medication Allergies Problems Ongoing - Any problem that you are currently receiving treatment for. Compound nevus of face Historical - Any problem that you are no longer receiving treatment for. Other obesity School physical exam Patient Survey You may receive a survey via text or e-mail asking about your office visit. Please share your experience with us by completing your survey. We appreciate your feedback and thank you for choosing us for your care. Normal [facility] Family Medicine Office/Clini c Noteon 02-03-2024 Family Medicine Office/Clinic Note Chief Complaint Adipex #4. Weight stayed the same. BMI- 31.07 History of Present Illness Pt denies any SE's from Adipex Denies any chest pain, pressure, SOB, insomnia nor headache Feels much better on the Adipex with more energy No constipation No difficulty with urination OARRS reviewed and no problems identified Review of Systems PHQ Score Initial Depression Screen Score: 0 SCORE ROS - Provider Constitutional: no fever, no chills, no sweats, no weakness. Skin: no Jaundice, no rash, no lesions, no petechiae. ENMT: no ear pain, no sore throat, no congestion, no hoarseness. Respiratory: no shortness of breath, no cough, no orthopnea, no wheezing. Cardiovascular: no chest pain, no palpitations, no edema. Gastrointestinal: no nausea, no vomiting, no diarrhea, no GI bleeding.no constipationnoheartburn Genitourinary: no dysuria, no hematuria, no discharge, no pain.nofreq/urgency Musculoskeletal: no back pain, no trauma.nojoint pain Neurologic: no headache, no dizziness, no numbness, no weakness. Psychiatric: no sleeping problems, no irritability, no mood swings/depression. Heme/Lymph: no bleeding tendency, no bruising tendency, no petechiae, no swollen lymph nodes no Allergy/Imunology no seasonal allergies, no food allergies, no recurrent infections, no impaired immunity. Additional ROS info: Except as noted in the above Review of Systems and in the History of Present Illness all other systems have been reviewed and are negative or noncontributory. Physical Exam Vitals & Measurements T: 36.6 ?C(Oral) HR: 80(Peripheral) RR: 16 BP: 112/72 SpO2: 97% HT: 68 in HT: 173 cm WT: 93.0 kg WT: 204.6 lb BMI: 31.07 General: Well developed, well nourished, in no acute distress Mouth: Mucous membranes moist. Normal oropharynx, and posterior pharynx without lesions or exudates. Tongue normal Neck: Neck supple. No masses or palpable cervical nodes. Trachea midline. Thyroid without nodules, masses, tenderness, or enlargement Lungs: Normal respiratory effort and clear to auscultation Cardio: Regular rate and rhythm, normal S1 and S2, no murmur, no rub Abdomen: Soft, non-distended, non-tender. no G/R/S/Masses Musculoskeletal: No deformity or scoliosis noted. Normal range of motion. Joints normal. No erythema, edema, effusion, or ecchymosis Extremity: No clubbing, cyanosis, edema, or deformity, with normal ROM in both upper and lower bilateral extremities Neurologic: Grossly normal Skin: No rashes, ulcerations, or suspicious lesions Mental Status: Alert and oriented x3. Normal mood and affect Assessment/Plan 1. 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 BMI 31.0-31.9,adult (Z68.31: Body mass index [BMI] 31.0-31.9, adult) The standard range for ages 18 and older is >=18.5 and < 25 kg/m2. Your BMI today was above this range, this falls in the overweight to obese category and there are medical benefits to weight loss. We can offer counselling, referral, and/or medical support in addressing this problem. Your BMI and weight management will be followed at subsequent visits. 3. Other obesity (E66.8: Other obesity) Diet and exercise BMI goal of 25, she has lost 5% of her body weight over the last 3 months and can continue Adipex if so desires, I went down to 1/2 tab per day Ordered: phentermine, 37.5 mg = 1 tab(s), Oral, Daily, # 30 tab(s), Refills(s) 0, Pharmacy: [facility] #[id number], 173, cm, 02/03/24 8:01:00 EDT, Height/Length Dosing, 93, kg, 02/03/24 8:01:00 EDT, Weight Dosing Follow-up With When Contact Information Mc RAY DO, FAAFP, FAM, PED In [address], [place] [address]- Additional Instructions: Patient Education Exercising to Lose Weight Problem List/Past Medical History Ongoing Compound nevus of face Historical Other obesity School physical exam Procedure/Surgical History None. Medications Adipex-P 37.5 mg Tab, 37.5 mg= 1 tab(s), Oral, Daily Nexplanon 68 mg subcutaneous implant, SubCutaneous, Once Allergies No Known Medication Allergies Social History Alcohol - Denies Alcohol Use, 05/04/2020 Tobacco - Denies Tobacco Use, 08/11/2021 Never (less than 100 in lifetime) Tobacco Use:. Never Smokeless Tobacco Use:., 02/03/2024 Family History Family history is negative Immunizations Vaccine Date Status Comments influenza virus vaccine, inactivated - Not Given Patient Refuses influenza virus vaccine, inactivated 09/18/2020 Recorded diphtheria/pertussis, acel/tetanus adult 05/04/2020 Given tetanus toxoid 05/04/2020 Recorded meningococcal group B vaccine 07/22/2017 Recorded meningococcal conjugate vaccine 07/22/2017 Recorded meningococcal conjugate vaccine 07/20/2012 Recorded human papillomavirus vaccine 07/20/2012 Recorded diphtheria/pertussis, acel/tetanus ped 07/20/2012 Recorded measles/mumps/rubella virus vaccine 04/03/2005 Recorded poliovirus vaccine, inactivated 04/03/ (more content not included)... Normal [facility] Comment on above: Result Comment: Elec tronically Signed By: Mc RAY DO, FAAFP\.br\Date and Time Signed: 02/03/24 08:35 EDT Patient Educationon 02-03-20 Patient Education Physical Medicine an d Rehabilitation Exercising to Lose Weight Getting regular exercise is important for everyone. It is especially important if you are overweight. Being overweight increases your risk of heart disease, stroke, diabetes, high blood pressure, and several types of cancer. Exercising, and reducing the calories you consume, can help you lose weight and improve fitness and health. Exercise can be moderate or vigorous intensity. To lose weight, most people need to do a certain amount of moderate or vigorous-intensity exercise each week. How can exercise affect me? You lose weight when you exercise enough to burn more calories than you eat. Exercise also reduces body fat and builds muscle. The more muscle you have, the more calories you burn. Exercise also: ? Improves mood. ? Reduces stress and tension. ? Improves your overall fitness, flexibility, and endurance. ? Increases bone strength. Moderate-intensity exercise Moderate-intensity exercise is any activity that gets you moving enough to burn at least three times more energy (calories) than if you were sitting. Examples of moderate exercise include: ? Walking a mile in 15 minutes. ? Doing light yard work. ? Biking at an easy pace. Most people should get at least 150 minutes of moderate-intensity exercise a week to maintain their body weight. Vigorous-intensity exercise Vigorous-intensity exercise is any activity that gets you moving enough to burn at least six times more calories than if you were sitting. When you exercise at this intensity, you should be working hard enough that you are not able to carry on a conversation. Examples of vigorous exercise include: ? Running. ? Playing a team sport, such as football, basketball, and soccer. ? Jumping rope. Most people should get at least 75 minutes a week of vigorous exercise to maintain their body weight. What actions can I take to lose weight? The amount of exercise you need to lose weight depends on: ? Your age. ? The type of exercise. ? Any health conditions you have. ? Your overall physical ability. Talk to your health care provider about how much exercise you need and what types of activities are safe for you. Nutrition ? Make changes to your diet as told by your health care provider or diet and energy efficiency specialist (dietitian). This may include: ? Eating fewer calories. ? Eating more protein. ? Eating less unhealthy fats. ? Eating a diet that includes fresh fruits and vegetables, whole grains, low-fat dairy products, and lean protein. ? Avoiding foods with added fat, salt, and sugar. ? Drink plenty of water while you exercise to prevent dehydration or heat stroke. Activity ? Choose an activity that you enjoy and set realistic goals. Your health care provider can help you make an exercise plan that works for you. ? Exercise at a moderate or vigorous intensity most days of the week. ? The intensity of exercise may vary from person to person. You can tell how intense a workout is for you by paying attention to your breathing and heartbeat. Most people will notice their breathing and heartbeat get faster with more intense exercise. ? Do resistance training twice each week, such as: ? Push-ups. ? Sit-ups. ? Lifting weights. ? Using resistance bands. ? Getting short amounts of exercise can be just as helpful as long, structured periods of exercise. If you have trouble finding time to exercise, try doing these things as part of your daily routine: ? Get up, stretch, and walk around every 30 minutes throughout the day. ? Go for a walk during your lunch break. ? Park your car farther away from your destination. ? If you take public transportation, get off one stop early and walk the rest of the way. ? Make phone calls while standing up and walking around. ? Take the stairs instead of elevators or escalators. ? Wear comfortable clothes and shoes with good support. ? Do not exercise so much that you hurt yourself, feel dizzy, or get very short of breath. Where to find more information ? [place] Department of Health and Human Services: www.hhs.gov ? Centers for Disease Control and Prevention: www.cdc.gov Contact a health care provider: ? Before starting a new exercise program. ? If you have questions or concerns about your weight. ? If you have a medical problem that keeps you from exercising. Get help right away if: ? You have any of the following while exercising: ? Injury. ? Dizziness. ? Difficulty breathing or shortness of breath that does not go away when you stop exercising. ? Chest pain. ? Rapid heartbeat. These symptoms may represent a serious problem that is an emergency. Do not wait to see if the symptoms will go away. Get medical help right away. Call your local emergency services (911 in the [place] Do not drive yourself to the hospital. Summary ? Getting regular exercise is e (more content not included)... Normal [facility] CHEMISTRYOrdered By: SYSTEM SYSTEM on 01-16-2023 Cholesterol [Mass/Vol] 140 mg/dL Normal 120 - 200 mg/dL FT Remisol Cholesterol in HDL [Mass/Vol] 51 mg/dL Invalid Interpretation Code FT Remisol Cholesterol in LDL [Mass/Vol] 88 mg/dL Normal <=129mg/dL FT [facility] Cholesterol in VLDL [Mass/Vol] 7 mg/dL Normal 7 - 40 mg/dL FT [facility] Glucose post fast [Mass/Vol] 99 mg/dL Normal 55 - 99 mg/dL FT [facility] Triglyceride [Mass/Vol] 37 mg/dL Normal <=149mg/dL FT Remisol Vital Signs Date Time Vital Sign Value Performing Clinician Facility 03-09-2025 09:18-040 Body mass index (BMI) [Ratio] 31.15 kg/m2 [facility] Nurse [facility] 03-09-2025 09:18-040 Body weight 98.48 kg [facility] Nurse [facility] 11-20-2024 13:47-0500 Body mass index (BMI) [Ratio] 29.99 kg/m2 Jessie Servando DO Work Phone: [facility] 11-20-2024 13:47-0500 Body weight 94.8 kg Jessie Servando DO Work Phone: [facility] 11-20-2024 13:47-0500 Diastolic blood pressure 76 mm[Hg] Jessie Servando DO Work Phone: [facility] 11-20-2024 13:47-0500 Systolic blood pressure 112 mm[Hg] Jessie Servando DO Work Phone: [facility] 07-03-2024 14:50-0400 Body mass index (BMI) [Ratio] 29.1 kg/m2 Jessie Servando DO Work Phone: [facility] 07-03-2024 14:50-0400 Body weight 91.99 kg Jessie Servando DO Work Phone: [facility] 07-03-2024 14:50-0400 Diastolic blood pressure 70 mm[Hg] Jessie Servando DO Work Phone: [facility] 07-03-2024 14:50-0400 Systolic blood pressure 112 mm[Hg] Jessie Al DO Work Phone: [facility] 05-04-2024 08:28-0400 Blood Pressure Location [facility] 05-04-2024 08:28-0400 Body temperature 97.88 [degF] [facility] 05-04-2024 08:28-0400 Diastolic blood pressure 70 mm[Hg] [facility] 05-04-2024 08:28-0400 Heart rate 78 /min [facility] 05-04-2024 08:28-0400 Respiratory rate 16 /min [facility] 05-04-2024 08:28-0400 SaO2% (BldA) [Mass fraction] 99 % [facility] 05-04-2024 08:28-0400 Systolic blood pressure 120 mm[Hg] [facility] 03-30-2024 08:18-0400 Blood Pressure Location [facility] 03-30-2024 08:18-0400 Body temperature 97.88 [degF] [facility] 03-30-2024 08:18-0400 Diastolic blood pressure 72 mm[Hg] [facility] 03-30-2024 08:18-0400 Heart rate 80 /min [facility] 03-30-2024 08:18-0400 Respiratory rate 16 /min [facility] 03-30-2024 08:18-0400 SaO2% (BldA) [Mass fraction] 99 % [facility] 03-30-2024 08:18-0400 Systolic blood pressure 118 mm[Hg] [facility] 03-06-2024 07:56-0400 Blood Pressure Location [facility] 03-06-2024 07:56-0400 Body temperature 97.7 [degF] [facility] 03-06-2024 07:56-0400 Diastolic blood pressure 70 mm[Hg] [facility] 03-06-2024 07:56-0400 Heart rate 76 /min [facility] 03-06-2024 07:56-0400 Respiratory rate 16 /min [facility] 03-06-2024 07:56-0400 SaO2% (BldA) [Mass fraction] 99 % [facility] 03-06-2024 07:56-0400 Systolic blood pressure 116 mm[Hg] [facility] 02-03-2024 07:54-0400 Blood Pressure Location [facility] 02-03-2024 07:54-0400 Body temperature 97.88 [degF] [facility] 02-03-2024 07:54-0400 Diastolic blood pressure 72 mm[Hg] [facility] 02-03-2024 07:54-0400 Heart rate 80 /min [facility] 02-03-2024 07:54-0400 Respiratory rate 16 /min [facility] 02-03-2024 07:54-0400 SaO2% (BldA) [Mass fraction] 97 % [facility] 02-03-2024 07:54-0400 Systolic blood pressure 112 mm[Hg] [facility] 01-06-2024 08:26-0500 Blood Pressure Location [facility] 01-06-2024 08:26-0500 Body temperature 97.88 [degF] [facility] 01-06-2024 08:26-0500 Diastolic blood pressure 72 mm[Hg] [facility] 01-06-2024 08:26-0500 Heart rate 84 /min [facility] 01-06-2024 08:26-0500 Respiratory rate 16 /min [facility] 01-06-2024 08:26-0500 SaO2% (BldA) [Mass fraction] 99 % [facility] 01-06-2024 08:26-0500 Systolic blood pressure 112 mm[Hg] [facility] 12-06-2023 08:24-0500 Blood Pressure Location [facility] 12-06-2023 08:24-0500 Body temperature 97.88 [degF] [facility] 12-06-2023 08:24-0500 Diastolic blood pressure 70 mm[Hg] [facility] 12-06-2023 08:24-0500 Heart rate 86 /min [facility] 12-06-2023 08:24-0500 Respiratory rate 16 /min [facility] 12-06-2023 08:24-0500 SaO2% (BldA) [Mass fraction] 98 % [facility] 12-06-2023 08:24-0500 Systolic blood pressure 112 mm[Hg] [facility] 11-04-2023 07:49-0500 Blood Pressure Location [facility] 11-04-2023 07:49-0500 Body temperature 97.88 [degF] [facility] 11-04-2023 07:49-0500 Diastolic blood pressure 72 mm[Hg] [facility] 11-04-2023 07:49-0500 Heart rate 86 /min [facility] 11-04-2023 07:49-0500 Respiratory rate 16 /min [facility] 11-04-2023 07:49-0500 SaO2% (BldA) [Mass fraction] 97 % [facility] 11-04-2023 07:49-0500 Systolic blood pressure 114 mm[Hg] [facility] 05-03-2023 07:40-0400 Blood Pressure Location [facility] 05-03-2023 07:40-0400 Body temperature 97.88 [degF] [facility] 05-03-2023 07:40-0400 Diastolic blood pressure 74 mm[Hg] [facility] 05-03-2023 07:40-0400 Heart rate 85 /min [facility] 05-03-2023 07:40-0400 Respiratory rate 16 /min [facility] 05-03-2023 07:40-0400 SaO2% (BldA) [Mass fraction] 100 % [facility] 05-03-2023 07:40-0400 Systolic blood pressure 116 mm[Hg] [facility] 02-22-2023 14:47-0400 Blood Pressure Location [facility] 02-22-2023 14:47-0400 Body temperature 97.88 [degF] [facility] 02-22-2023 14:47-0400 Diastolic blood pressure 78 mm[Hg] [facility] 02-22-2023 14:47-0400 Heart rate 78 /min [facility] 02-22-2023 14:47-0400 Respiratory rate 16 /min [facility] 02-22-2023 14:47-0400 SaO2% (BldA) [Mass fraction] 99 % [facility] 02-22-2023 14:47-0400 Systolic blood pressure 120 mm[Hg] [facility] 01-22-2023 13:14-0400 Blood Pressure Location [facility] 01-22-2023 13:14-0400 Body temperature 98.24 [degF] [facility] 01-22-2023 13:14-0400 Diastolic blood pressure 78 mm[Hg] [facility] 01-22-2023 13:14-0400 Heart rate 76 /min [facility] 01-22-2023 13:14-0400 Systolic blood pressure 124 mm[Hg] [facility] 01-14-2023 07:53-0500 Blood Pressure Location [facility] 01-14-2023 07:53-0500 Body temperature 97.88 [degF] [facility] 01-14-2023 07:53-0500 Diastolic blood pressure 70 mm[Hg] [facility] 01-14-2023 07:53-0500 Heart rate 69 /min [facility] 01-14-2023 07:53-0500 Respiratory rate 16 /min [facility] 01-14-2023 07:53-0500 SaO2% (BldA) [Mass fraction] 98 % [facility] 01-14-2023 07:53-0500 Systolic blood pressure 114 mm[Hg] [facility] Encounters Encounter Date Encounter Type Care Provider Facility Start: 03-13-2025 ambulatory Mc RAY Facility: [facility] Start: 03-09-2025 End: 03-09-2025 Office outpatient visit 5 minutes [facility] Nurse [facility] Comment on above: GA: 7w4d Start: 03-09-2025 End: 03-09-2025 ambulatory CARI LINDER Not Available Start: 11-20-2024 End: 11-20-2024 Patient encounter procedure Jessie Servando DO Work Phone: [facility] Comment on above: Nexplanon removal Start: 11-20-2024 End: 11-20-2024 ambulatory JESSIE SERVANDO Not Available Start: 07-03-2024 End: 07-03-2024 Periodic preventive med est patient 18-39 yrs Jessie Servando DO Work Phone: [facility] Comment on above: Encounter for repeat Pap smear due to previous insufficient cervical cells Start: 07-03-2024 End: 07-03-2024 ambulatory JESSIE SERVANDO Not Available Start: 07-03-2024 End: 07-03-2024 Bamboo flowsheet Jessie Servando DO Work Phone: [facility] Start: 07-03-2024 End: 09-12-2024 Clinisync Result Encounter Jessie Servando DO Work Phone: [facility] Unsolicited Start: 07-03-2024 End: 09-12-2024 Clinisync Result Encounter Jessie Servando DO Work Phone: [facility] Unsolicited Start: 05-29-2024 End: 05-29-2024 ambulatory CARI LINDER Not Available Start: 05-04-2024 End: 05-04-2024 ambulatory Mc A KAPLE Facility:[facility] Start: 05-04-2024 End: 05-04-2024 Patient encounter procedure Mc A KAPLE [facility] Start: 03-30-2024 End: 03-30-2024 ambulatory Mc A KAPLE Facility:[facility] Start: 03-30-2024 End: 03-30-2024 Patient encounter procedure Mc A KAPLE [facility] Start: 03-06-2024 End: 03-06-2024 ambulatory Mc A KAPLE Facility:[facility] Start: 03-06-2024 End: 03-06-2024 Patient encounter procedure Mc A KAP[facility] Start: 02-03-2024 End: 02-03-2024 ambulatory Mc A KAPLE Facility:[facility] Start: 02-03-2024 End: 02-03-2024 Patient encounter procedure Mc A KAP[facility] Start: 01-06-2024 End: 01-06-2024 Patient encounter procedure Mc A [facility] Start: 12-06-2023 End: 12-06-2023 Patient encounter procedure Mc A KAPLE [facility] Start: 11-04-2023 End: 11-04-2023 Patient encounter procedure Mc A KAPLE [facility] Start: 05-03-2023 End: 05-03-2023 Patient encounter procedure Mc RAY [facility] Start: 02-22-2023 End: 02-22-2023 Patient encounter procedure Mc RAY [facility] Start: 01-22-2023 End: 01-22-2023 Patient encounter procedure Mc RAY [facility] Start: 01-16-2023 End: 01-16-2023 Patient encounter procedure [facility] Start: 01-14-2023 End: 01-14-2023 Patient encounter procedure Mc RAY [facility] Start: 01-14-2023 End: 01-14-2023 Well adult monitoring check done Mc RAY [facility] [facility] Procedures Date Procedure Procedure Detail Performing Clinician Start: 11-20-2024 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/REMOVA L OF CONTRACEPTIVE CAPSULE Jessie Al DO Work Phone: Start: 07-03-2024 [facility] PAP IMAGE GUIDED C glenn Al DO Work Phone: None (qualifier value) Mc RAY Plan of Treatment Date Care Activity Detail Author Start: 05-31-2025 End: 05-31-2025 Patient encounter procedure 05/31/2025 8:30 AM EDT Office Visit [facility] [address] [place] [address] Jessie Al DO [address] [place] [address] [facility] Start: 04-09-2025 End: 04-09-2025 Patient encounter procedure 04/09/2025 3:10 PM EDT Routine [facility] [address] [place] [id number] Jessie Al, DO [address] [place] [address] [facility] Start: 03-09-2025 End: 03-09-2026 ABO/Rh ABO/Rh Lab Routine Missed menses , unspecified gestational age Expected: 03/09/2025 (Approximate), Expires: 03/09/2026 [facility] Comment on above: Expected: 03/09/2025 (Approximate), Expires: 03/09/2026 Start: 03-09-2025 End: 03-09-2026 Blood type and Indirect antibody screen panel - Blood Type and screen Lab Routine Missed menses , unspecified gestational age Expected: 03/09/2025 (Approximate), Expires: 03/09/2026 [facility] Work Phone: Comment on above: Expected: 03/09/2025 (Approximate), Expires: 03/09/2026 Start: 03-09-2025 End: 03-09-2026 Drugs of abuse panel - Urine by Screen method Rapid drug screen, urine Lab Routine , unspecified gestational age Encounter for supervision of normal first in first trimester Expected: 03/09/2025 (Approximate), Expires: 03/09/2026 [facility] Comment on above: Expected: 03/09/2025 (Approximate), Expires: 03/09/2026 Start: 11-20-2024 End: 11-20-2024 Patient encounter procedure 11/20/2024 3:30 PM EST Procedure Visit [facility] [address] [place] [id number] Jessie Al, DO [address] [place] [address] [facility] Start: 07-03-2024 End: 07-03-2024 Patient encounter procedure 07/03/2024 2:20 PM EDT Procedure Visit [facility] [address] [place] [phone] Jessie Al, DO [address] [place] [address] Arrived [facility] Comment on above: Arrived Bacteria identified in Urine by Culture Urine culture Microbiology Routine Missed menses Ordered: 03/09/2025 [facility] Comment on above: Ordered: 03/09/2025 CBC W Auto Different ial panel - Blood CBC and differential Lab Routine Missed menses , unspecified gestational age Ordered: 03/09/2025 [facility] Comment on above: Ordered: 03/09/2025 Cytology Cervical or vaginal smear or scraping study Pap Smear Pathology and Cytology Routine Encounter for repeat Pap smear due to previous insufficient cervical cells Ordered: 07/03/2024 [facility] Work Phone: Comment on above: Ordered: 07/03/2024 Hemoglobin A1c/Hemoglobin.total in Blood Hemoglobin A1c Lab Routine Missed menses , unspecified gestational age Ordered: 03/09/2025 [facility] Comment on above: Ordered: 03/09/2025 Hepatitis B virus surface Ag [Presence] in Serum or Plasma by Immunoassay Hepatitis B surface antigen Lab Routine Missed menses , unspecified gestational age Ordered: 03/09/2025 [facility] Comment on above: Ordered: 03/09/2025 Hepatitis C virus Ab [Presence] in Serum or Plasma by Immunoassay Hepatitis C antibody Lab Routine Missed menses , unspecified gestational age Ordered: 03/09/2025 [facility] Comment on above: Ordered: 03/09/2025 HIV-1/HIV-2 antigen/antibody combination immunoassay HIV-1 and HIV-2 antibodies Lab Routine Missed menses , unspecified gestational age Ordered: 03/09/2025 [facility] Comment on above: Ordered: 03/09/2025 Reagin Ab [Presence] in Serum by RPR RPR Lab Routine Missed menses , unspecified gestational age Ordered: 03/09/2025 [facility] Comment on above: Ordered: 03/09/2025 Rubella antibody, IgG Rubella an tibody, IgG Lab Routine Missed menses , unspecified gestational age Ordered: 03/09/2025 [facility] Comment on above: Ordered: 03/09/2025 Immunizations Immunization Date Immunization Notes Care Provider [facility] 09-18-2020 influenza virus vaccine, unspecified formulation [facility] 05-04-2020 tetanus toxoid, unspecified formulation [facility] 05-04-2020 tetanus toxoid, reduced diphtheria toxoid, and acellular pertussis vaccine, adsorbed [facility] 07-22-2017 meningococcal ACWY vaccine, unspecified formulation [facility] 07-22-2017 meningococcal B vaccine, fully recombinant [facility] 07-20-2012 diphtheria, tetanus toxoids and acellular pertussis vaccine [facility] 07-20-2012 HPV, unspecified formulation [facility] 07-20-2012 meningococcal ACWY vaccine, unspecified formulation [facility] 04-03-2005 DTaP, unspecified formulation [facility] 04-03-2005 measles, mumps and rubella virus vaccine [facility] 04-03-2005 poliovirus vaccine, unspecified formulation [facility] 07-24-2003 diphtheria, tetanus toxoids and acellular pertussis vaccine [facility] 07-24-2003 haemophilus influenz ae type b vaccine, PRP-OMP conjugate [facility] 07-24-2003 hepatitis B vaccine, pediatric or pediatric/adolescent dosage [facility] 07-24-2003 poliovirus vaccine, unspecified formulation [facility] 08-30-2002 varicella virus vaccine [facility] 08-24-2001 hepatitis B vaccine, pediatric or pediatric/adolescent dosage [facility] 08-24-2001 measles, mumps and rubella virus vaccine [facility] 08-24-2001 varicella virus vaccine [facility] 03-11-2000 hepatitis B vaccine, pediatric or pediatric/adolescent dosage [facility] 01-06-2000 poliovirus vaccine, unspecified formulation [facility] 1999 poliovirus vaccine, unspecified formulation [facility] NEGATED: Highlighted row has not occurred!01-22-2023 influenza virus vaccine, unspecified formulation [facility] Payers Date Payer Category [facility] [id number] 2021 Unknown BCBS BCBS [id number] 2021-Present [phone] [address] [place] [address] [id number] 2021 Unknown [id number] 1999 Unknown [id number] 1999 Unknown [id number] [id number] 1999 Unknown [id number] [id number] 1999 Unknown [id number] 1999 Unknown [id number] [id number] 1999 Unknown [id number] 9.2.1259 1999 Unknown [id number] 9.2.1259 1999 Unknown [id number] 9.2.1259 1999 Unknown [id number] [id number] 1999 Unknown [id number] [id number] Social History Date Type Detail Facility Start: 01-14-2023 End: 05-26-2023 Tobacco smoking status Never smoked tobacco (finding) [facility] Tobacco smoking status Never [facility] Start: 05-27-2023 End: 07-03-2024 Sex Assigned At Female [facility] Start: 07-03-2024 End: 03-09-2025 Alcoholic beverage intake Current drinker of alcohol (finding) [facility] Start: 05-27-2023 End: 07-03-2024 History of Social function [facility] Start: 05-26-2023 Alcohol Comment Alcohol: month ly or less. Caffeine: none [facility] Start: 2000 Sex assigned at Not on file [facility] Start: 01-29-2025 [facility] Functional Status Date Assessment Result Facility 05-04-2024 Functional Status N/A [facility] 03-30-2024 Functional Status N/A [facility] 03-06-2024 Functional Status N/A [facility] 02-03-2024 Functional Status N/A [facility] 01-06-2024 Functional Status N/A [facility] 12-06-2023 Functional Status N/A [facility] 11-04-2023 Functional Status N/A [facility] 05-03-2023 Functional Status N/A [facility] 02-22-2023 Functional Status N/A [facility] 01-22-2023 Functional Status N/A [facility] 01-14-2023 Functional Status N/A [facility] Clinical Notes 01-14-2023 to 03-09-2025 Jacinda Storm, DON - 03/09/2025 9:00 AM Elvia Tomas LPN - 11/20/2024 1:30 PM ESTSstanley Tomas LPN - 07/03/2024 2:20 PM EDTLaboratory Note Date & Type Note Facility 03-09-2025 History of Presen t illness Narrative Reason for Appointment: Patient ID: Alejo Overton is a 24 y.o. female who presents for Amenorrhea Patient presents today for a Nurse OB Intake appointment. Patient is 7w4d with a Estimated Date of Delivery: 10/22/25 OB History Para Term AB Living 1 SAB IAB Ectopic Multiple Live Births # Outcome Date GA Lbr Ruel/2nd Weight Sex Type Anes PTL Lv 1 Current Current Medications: currently has no medications in their medication list. Medical History: Active Ambulatory Problems Diagnosis Date Noted No Active Ambulatory Problems Resolved Ambulatory Problems Diagnosis Date Noted No Resolved Ambulatory Problems No Additional Past Medical History Family History Problem Relation Name Age of Onset Other (COVID) Father No Known Problems Sister 2 sisters No Known Problems Brother 3 brothers Social History Tobacco Use Smoking status: Never Smokeless tobacco: Not on file Substance Use Topics Alcohol use: Yes Comment: Alcohol: monthly or less. Caffeine: none Drug use: Not on file History reviewed. No pertinent surgical history. No Known Allergies Vitals: Estimated body mass index is 31.15 kg/m as calculated from the following: Height as of 05/29/24: 5' 10 . Weight as of this encounter: 217 lb 1.9 oz. BP: Patient's last menstrual period was 01/04/2025. Assessment/Plan Diagnoses and all orders for this visit: Missed menses - Type and screen; Future - ABO/Rh; Future - CBC and differential - Hemoglobin A1c - RPR - Rubella antibody, IgG - Hepatitis B surface antigen - Hepatitis C antibody - HIV-1 and HIV-2 antibodies - Urine culture , unspecified gestational age - Type and screen; Future - ABO/Rh; Future - CBC and differential - Hemoglobin A1c - RPR - Rubella antibody, IgG - Hepatitis B surface antigen - Hepatitis C antibody - HIV-1 and HIV-2 antibodies - Rapid drug screen, urine; Future Encounter for supervision of normal first in first trimester - Rapid drug screen, urine; Future Nurse Note: OB Intake: Patient presents today for first OB visit. Patients history has been reviewed in great detail including any potential risks. Patient signed consent forms and patient desires testing in both trimesters. Patient currently has no complaints and has been advised to drink 6-8 glasses of water a day, eat no raw or undercooked meat, and stay away from [facility]. Patient has also been advised to not change litter boxes and eat 6 small meals a day. Patient has been consulted regarding the do's and don'ts of . Patient was given labs and all questions and concerns were answered. Follow Up: Patient is to return in 4 weeks for routine OB appointment. Follow Up: Patient is to have labs drawn at directed and return to office for initial OB appointment with provider. Patient may call office as needed with any concerns or questions. Nurse Visit Completed by: Jacinda Storm LPN documented in this encounter [facility] 11-20-2024 History of Presen t illness Narrative Associated Order(s): Insertion/Removal of Contraceptive Capsule Post-Procedure Diagnose(s): Nexplanon removal Reason for Appointment: Patient ID: Alejo Overton is a 24 y.o. female who presents for Nexplanon Removal Patient presents today for a Nexplanon Removal appointment. MEDICATIONS Current Outpatient Medications Medication Instructions phentermine (ADIPEX-P) 37.5 mg, Oral, Daily ALLERGIES No Known Allergies SURGICAL HISTORY No past surgical history on file. REVIEW OF SYSTEMS Review of Systems: Review of Systems All other systems reviewed and are negative. OBJECTIVE Objective: Physical Exam Constitutional: Appearance: Normal appearance. She is well-developed. Cardiovascular: Rate and Rhythm: Normal rate and regular rhythm. Pulmonary: Effort: Pulmonary effort is normal. Breath sounds: Normal breath sounds. Abdominal: General: Bowel sounds are normal. There is no distension. Palpations: Abdomen is soft. Tenderness: There is no abdominal tenderness. There is no guarding or rebound. Musculoskeletal: General: No swelling. Normal range of motion. Right lower leg: No edema. Left lower leg: No edema. Neurological: Mental Status: She is alert and oriented to person, place, and time. Skin: General: Skin is warm and dry. Psychiatric: Mood and Affect: Mood normal. Behavior: Behavior normal. Vitals and nursing note reviewed. Exam conducted with a watch crystal grinder present. Vitals: Estimated body mass index is 29.99 kg/m as calculated from the following: Height as of 05/29/24: 5' 10 . Weight as of this encounter: 209 lb. BP: 112/76 No LMP recorded. Patient has had an implant. ASSESSMENT & PLAN Assessment/Plan Encounter Diagnosis: ICD-10-CM 1. Nexplanon removal Z30.46 Insertion/Removal of Contraceptive Capsule Date/Time: 11/20/2024 2:05 PM Performed by: Jessie Al DO Authorized by: Jessie Al DO Consent: Consent obtained: Written Consent given by: Patient Patient questions answered: yes Patient agrees, verbalizes understanding, and wants to proceed: yes Educational handouts given: no Instructions and paperwork completed: yes Indication: Indication: Presence of non-biodegradable drug delivery implant Pre-procedure: Pre-procedure timeout performed: yes Prepped with: alcohol 70% Local anesthetic: Lidocaine without epinephrine The site was cleaned and prepped in a sterile fashion: yes Procedure: Procedure: Removal Small stab incision was made in arm: yes Left/right: Left Site was closed with steri-strips and pressure bandage applied: yes Nexplanon Removal: Patient presents today for removal of Nexplanon. Written consent for procedure was obtained and patient was placed in supine position with left arm flexed at elbow. Skin was cleansed with alcohol/Betadine and 2cc of Lidocaine was injected underneath palpated Nexplanon at distal end. After allowing for sufficient time for numbing agent to take effect, the skin overlying the end of Nexplanon was incised with an 11inch blade scalpel. A 7.5in hemostat was inserted in the incision site to grab device and Nexplanon was released from tissue. Nexplanon implant was removed in its entirety and visualized by myself and patient. The skin was cleansed with alcohol and the incision was covered with gauze. Post-procedure care was reviewed and patient will continue with proposed plan of care. Patient was advised to call office with any questions or concerns. Follow Up: Patient is to return to the office as needed for any routine appointments. Documented by Shannon Tomas LPN on behalf of: Jessie Al DO documented in this encounter [facility] 07-03-2024 History of Presen t illness Narrative Reason for Appointment: Patient ID: Alejo Overton is a 23 y.o. female who presents for Well Women Visit Patient presents today for Repeat Pap. MEDICATIONS Current Outpatient Medications Medication Instructions etonogestrel-eluting (Nexplanon) 68 mg contraceptive implant 1 each, Implant, Once phentermine (ADIPEX-P) 37.5 mg, Oral, Daily ALLERGIES No Known Allergies PROBLEMS Active Ambulatory Problems Diagnosis Date Noted No Active Ambulatory Problems Resolved Ambulatory Problems Diagnosis Date Noted No Resolved Ambulatory Problems No Additional Past Medical History HISTORY PAST MEDICAL HISTORY SOCIAL HISTORY History reviewed. No pertinent past medical history. Social History Tobacco Use Smoking status: Never Smokeless tobacco: Not on file Substance Use Topics Alcohol use: Yes Comment: Alcohol: monthly or less. Caffeine: none Drug use: Not on file FAMILY HISTORY Family History Problem Relation Name Age of Onset Other (COVID) Father No Known Problems Sister 2 sisters No Known Problems Brother 3 brothers SURGICAL HISTORY History reviewed. No pertinent surgical history. REVIEW OF SYSTEMS Review of Systems: Review of Systems All other systems reviewed and are negative. OBJECTIVE Objective: Physical Exam Constitutional: Appearance: Normal appearance. She is well-developed. Genitourinary: Vulva normal. Cardiovascular: Rate and Rhythm: Normal rate and regular rhythm. Pulmonary: Effort: Pulmonary effort is normal. Breath sounds: Normal breath sounds. Abdominal: General: Bowel sounds are normal. There is no distension. Palpations: Abdomen is soft. Tenderness: There is no abdominal tenderness. There is no guarding or rebound. Musculoskeletal: General: No swelling. Normal range of motion. Right lower leg: No edema. Left lower leg: No edema. Neurological: Mental Status: She is alert and oriented to person, place, and time. Skin: General: Skin is warm and dry. Psychiatric: Mood and Affect: Mood normal. Behavior: Behavior normal. Vitals and nursing note reviewed. Exam conducted with a watch crystal grinder present. Vitals: Estimated body mass index is 29.1 kg/m as calculated from the following: Height as of 05/29/24: 5' 10 . Weight as of this encounter: 202 lb 12.8 oz. BP: 112/70 No LMP recorded. Patient has had an implant. ASSESSMENT & PLAN ICD-10-CM 1. Encounter for repeat Pap smear due to previous insufficient cervical cells R87.615 Pap Smear Repeat Pap: Patient presents today for a repeat pap. Previous pap results were reviewed and noted to be unsatisfactory. Question regarding previous results were discussed. Repeat Pap was obtained without difficulty. Follow Up: Patient is to return to the office in 1 year for annual exam. Documented by Shannon Tomas LPN on behalf of: Jessie Al DO documented in this encounter [facility] 05-04-2024 Hospital Discharg e instructions Patient Education 05/04/2024 08:46:07 Exercising to Lose Weight Exercising to Lose Weight Getting regular exercise is important for everyone. It is especially important if you are overweight. Being overweight increases your risk of heart disease, stroke, diabetes, high blood pressure, and several types of cancer. Exercising, and reducing the calories you consume, can help you lose weight and improve fitness and health. Exercise can be moderate or vigorous intensity. To lose weight, most people need to do a certain amount of moderate or vigorous-intensity exercise each week. How can exercise affect me? You lose weight when you exercise enough to burn more calories than you eat. Exercise also reduces body fat and builds muscle. The more muscle you have, the more calories you burn. Exercise also: Improves mood. Reduces stress and tension. Improves your overall fitness, flexibility, and endurance. Increases bone strength. Moderate-intensity exercise Moderate-intensity exercise is any activity that gets you moving enough to burn at least three times more energy (calories) than if you were sitting. Examples of moderate exercise include: Walking a mile in 15 minutes. Doing light yard work. Biking at an easy pace. Most people should get at least 150 minutes of moderate-intensity exercise a week to maintain their body weight. Vigorous-intensity exercise Vigorous-intensity exercise is any activity that gets you moving enough to burn at least six times more calories than if you were sitting. When you exercise at this intensity, you should be working hard enough that you are not able to carry on a conversation. Examples of vigorous exercise include: Running. Playing a team sport, such as football, basketball, and soccer. Jumping rope. Most people should get at least 75 minutes a week of vigorous exercise to maintain their body weight. What actions can I take to lose weight? The amount of exercise you need to lose weight depends on: Your age. The type of exercise. Any health conditions you have. Your overall physical ability. Talk to your health care provider about how much exercise you need and what types of activities are safe for you. Nutrition Make changes to your diet as told by your health care provider or diet and energy efficiency specialist (dietitian). This may include: ?Eating fewer calories. ?Eating more protein. ?Eating less unhealthy fats. ?Eating a diet that includes fresh fruits and vegetables, whole grains, low-fat dairy products, and lean protein. ?Avoiding foods with added fat, salt, and sugar. Drink plenty of water while you exercise to prevent dehydration or heat stroke. Activity Choose an activity that you enjoy and set realistic goals. Your health care provider can help you make an exercise plan that works for you. Exercise at a moderate or vigorous intensity most days of the week. ?The intensity of exercise may vary from person to person. You can tell how intense a workout is for you by paying attention to your breathing and heartbeat. Most people will notice their breathing and heartbeat get faster with more intense exercise. Do resistance training twice each week, such as: ?Push-ups. ?Sit-ups. ?Lifting weights. ?Using resistance bands. Getting short amounts of exercise can be just as helpful as long, structured periods of exercise. If you have trouble finding time to exercise, try doing these things as part of your daily routine: ?Get up, stretch, and walk around every 30 minutes throughout the day. ?Go for a walk during your lunch break. ?Park your car farther away from your destination. ?If you take public transportation, get off one stop early and walk the rest of the way. ?Make phone calls while standing up and walking around. ?Take the stairs instead of elevators or escalators. Wear comfortable clothes and shoes with good support. Do not exercise so much that you hurt yourself, feel dizzy, or get very short of breath. Where to find more information [place] Department of Health and Human Services: www.hhs.gov Centers for Disease Control and Prevention: www.cdc.gov Contact a health care provider: Before starting a new exercise program. If you have questions or concerns about your weight. If you have a medical problem that keeps you from exercising. Get help right away if: You have any of the following while exercising: ?Injury. ?Dizziness. ?Difficulty breathing or shortness of breath that does not go away when you stop exercising. ?Chest pain. ?Rapid heartbeat. These symptoms may represent a serious problem that is an emergency. Do not wait to see if the symptoms will go away. Get medical help right away. Call your local emergency services (911 in the [place] Do not drive yourself to the hospital. Summary Getting regular exercise is especially important if you are overweight. Being overweight increases your risk of heart disease, stroke, diabetes, high blood pressure, and several types of cancer. Losing weight happens when you burn more calories than you eat. Reducing the amount of calories you eat, and getting regular moderate or vigorous exercise each week, helps you lose weight. This information is not intended to replace advice given to you by your health care provider. Make sure you discuss any questions you have with your health care provider. Document Revised: 12/21/2021 Document Reviewed: 12/21/2021 [employer] Patient Education [address] [employer]. Follow Up Care 02/03/2024 08:31:57 With:AURELIO BAJWA FAAFP, DAE Newsome, PED Address: [facility] [address], [place] [address]- When:Within 6 Month(s) [facility] 05-04-2024 Note Patient Education Physical Medicine and Rehabilitation Exercising to Lose Weight Getting regular exercise is important for everyone. It is especially important if you are overweight. Being overweight increases your risk of heart disease, stroke, diabetes, high blood pressure, and several types of cancer. Exercising, and reducing the calories you consume, can help you lose weight and improve fitness and health. Exercise can be moderate or vigorous intensity. To lose weight, most people need to do a certain amount of moderate or vigorous-intensity exercise each week. How can exercise affect me? You lose weight when you exercise enough to burn more calories than you eat. Exercise also reduces body fat and builds muscle. The more muscle you have, the more calories you burn. Exercise also: ? Improves mood. ? Reduces stress and tension. ? Improves your overall fitness, flexibility, and endurance. ? Increases bone strength. Moderate-intensity exercise Moderate-intensity exercise is any activity that gets you moving enough to burn at least three times more energy (calories) than if you were sitting. Examples of moderate exercise include: ? Walking a mile in 15 minutes. ? Doing light yard work. ? Biking at an easy pace. Most people should get at least 150 minutes of moderate-intensity exercise a week to maintain their body weight. Vigorous-intensity exercise Vigorous-intensity exercise is any activity that gets you moving enough to burn at least six times more calories than if you were sitting. When you exercise at this intensity, you should be working hard enough that you are not able to carry on a conversation. Examples of vigorous exercise include: ? Running. ? Playing a team sport, such as football, basketball, and soccer. ? Jumping rope. Most people should get at least 75 minutes a week of vigorous exercise to maintain their body weight. What actions can I take to lose weight? The amount of exercise you need to lose weight depends on: ? Your age. ? The type of exercise. ? Any health conditions you have. ? Your overall physical ability. Talk to your health care provider about how much exercise you need and what types of activities are safe for you. Nutrition ? Make changes to your diet as told by your health care provider or diet and energy efficiency specialist (dietitian). This may include: ? Eating fewer calories. ? Eating more protein. ? Eating less unhealthy fats. ? Eating a diet that includes fresh fruits and vegetables, whole grains, low-fat dairy products, and lean protein. ? Avoiding foods with added fat, salt, and sugar. ? Drink plenty of water while you exercise to prevent dehydration or heat stroke. Activity ? Choose an activity that you enjoy and set realistic goals. Your health care provider can help you make an exercise plan that works for you. ? Exercise at a moderate or vigorous intensity most days of the week. ? The intensity of exercise may vary from person to person. You can tell how intense a workout is for you by paying attention to your breathing and heartbeat. Most people will notice their breathing and heartbeat get faster with more intense exercise. ? Do resistance training twice each week, such as: ? Push-ups. ? Sit-ups. ? Lifting weights. ? Using resistance bands. ? Getting short amounts of exercise can be just as helpful as long, structured periods of exercise. If you have trouble finding time to exercise, try doing these things as part of your daily routine: ? Get up, stretch, and walk around every 30 minutes throughout the day. ? Go for a walk during your lunch break. ? Park your car farther away from your destination. ? If you take public transportation, get off one stop early and walk the rest of the way. ? Make phone calls while standing up and walking around. ? Take the stairs instead of elevators or escalators. ? Wear comfortable clothes and shoes with good support. ? Do not exercise so much that you hurt yourself, feel dizzy, or get very short of breath. Where to find more information ? [place]. Department of Health and Human Services: www.hhs.gov ? Centers for Disease Control and Prevention: www.cdc.gov Contact a health care provider: ? Before starting a new exercise program. ? If you have questions or concerns about your weight. ? If you have a medical problem that keeps you from exercising. Get help right away if: ? You have any of the following while exercising: ? Injury. ? Dizziness. ? Difficulty breathing or shortness of breath that does not go away when you stop exercising. ? Chest pain. ? Rapid heartbeat. These symptoms may represent a serious problem that is an emergency. Do not wait to see if the symptoms will go away. Get medical help right away. Call your local emergency services (911 in the [place] Do not drive yourself to the hospital. Summary ? Getting r (more content not included)... [facility] 03-30-2024 Hospital Discharg e instructions Patient Education 03/30/2024 08:42:21 BMI for Adults BMI for Adults What is BMI? Body mass index (BMI) is a number that is calculated from a person's weight and height. BMI can help estimate how much of a person's weight is composed of fat. BMI does not measure body fat directly. Rather, it is an alternative to procedures that directly measure body fat, which can be difficult and expensive. BMI can help identify people who may be at higher risk for certain medical problems. What are BMI measurements used for? BMI is used as a screening tool to identify possible weight problems. It helps determine whether a person is obese, overweight, a healthy weight, or underweight. BMI is useful for: Identifying a weight problem that may be related to a medical condition or may increase the risk for medical problems. Promoting changes, such as changes in diet and exercise, to help reach a healthy weight. BMI screening can be repeated to see if these changes are working. How is BMI calculated? BMI involves measuring your weight in relation to your height. Both height and weight are measured, and the BMI is calculated from those numbers. This can be done either in [place] ([place] or metric measurements. Note that charts and online BMI calculators are available to help you find your BMI quickly and easily without having to do these calculations yourself. To calculate your BMI in [place] ([place] measurements: 1.Measure your weight in pounds (lb). 2.Multiply the number of pounds by 703. For example, for a person who weighs 180 lb, multiply that number by 703, which equals 126,540. 3.Measure your height in inches. Then multiply that number by itself to get a measurement called inches squared. For example, for a person who is 70 inches tall, the inches squared measurement is 70 inches x 70 inches, which equals 4,900 inches squared. 4.Divide the total from step 2 (number of lb x 703) by the total from step 3 (inches squared): 126,540 4,900 = 25.8. This is your BMI. To calculate your BMI in metric measurements: 1.Measure your weight in kilograms (kg). 2.Measure your height in meters (m). Then multiply that number by itself to get a measurement called meters squared. For example, for a person who is 1.75 m tall, the meters squared measurement is 1.75 m x 1.75 m, which is equal to 3.1 meters squared. 3.Divide the number of kilograms (your weight) by the meters squared number. In this example: 70 3.1 = 22.6. This is your BMI. What do the results mean? BMI charts are used to identify whether you are underweight, normal weight, overweight, or obese. The following guidelines will be used: Underweight: BMI less than 18.5. Normal weight: BMI between 18.5 and 24.9. Overweight: BMI between 25 and 29.9. Obese: BMI of 30 or above. Keep these notes in mind: Weight includes both fat and muscle, so someone with a muscular build, such as an athlete, may have a BMI that is higher than 24.9. In cases like these, BMI is not an accurate measure of body fat. To determine if excess body fat is the cause of a BMI of 25 or higher, further assessments may need to be done by a health care provider. BMI is usually interpreted in the same way for men and women. Where to find more information For more information about BMI, including tools to quickly calculate your BMI, go to these websites: Centers for Disease Control and Prevention: www.cdc.gov [place] [employer]: www.heart.org National Heart, Lung, and Blood [place]: www.nhlbi.nih.gov Summary Body mass index (BMI) is a number that is calculated from a person's weight and height. BMI may help estimate how much of a person's weight is composed of fat. BMI can help identify those who may be at higher risk for certain medical problems. BMI can be measured using Indonesian measurements or metric measurements. BMI charts are used to identify whether you are underweight, normal weight, overweight, or obese. This information is not intended to replace advice given to you by your health care provider. Make sure you discuss any questions you have with your health care provider. Document Revised: 07/17/2020 Document Reviewed: 05/24/2020 [employer] Patient Education [address]. Follow Up Care 02/03/2024 08:30:45 With:AURELIO BAJWA FAAFP, DAE Newsome, PED Address: [address] [place] [address] [place], [facility] [place] [address]- When:Within 1 Month(s) [facility] 03-06-2024 Hospital Discharg e instructions Patient Education 03/06/2024 08:18:40 Exercising to Lose Weight Exercising to Lose Weight Getting regular exercise is important for everyone. It is especially important if you are overweight. Being overweight increases your risk of heart disease, stroke, diabetes, high blood pressure, and several types of cancer. Exercising, and reducing the calories you consume, can help you lose weight and improve fitness and health. Exercise can be moderate or vigorous intensity. To lose weight, most people need to do a certain amount of moderate or vigorous-intensity exercise each week. How can exercise affect me? You lose weight when you exercise enough to burn more calories than you eat. Exercise also reduces body fat and builds muscle. The more muscle you have, the more calories you burn. Exercise also: Improves mood. Reduces stress and tension. Improves your overall fitness, flexibility, and endurance. Increases bone strength. Moderate-intensity exercise Moderate-intensity exercise is any activity that gets you moving enough to burn at least three times more energy (calories) than if you were sitting. Examples of moderate exercise include: Walking a mile in 15 minutes. Doing light yard work. Biking at an easy pace. Most people should get at least 150 minutes of moderate-intensity exercise a week to maintain their body weight. Vigorous-intensity exercise Vigorous-intensity exercise is any activity that gets you moving enough to burn at least six times more calories than if you were sitting. When you exercise at this intensity, you should be working hard enough that you are not able to carry on a conversation. Examples of vigorous exercise include: Running. Playing a team sport, such as football, basketball, and soccer. Jumping rope. Most people should get at least 75 minutes a week of vigorous exercise to maintain their body weight. What actions can I take to lose weight? The amount of exercise you need to lose weight depends on: Your age. The type of exercise. Any health conditions you have. Your overall physical ability. Talk to your health care provider about how much exercise you need and what types of activities are safe for you. Nutrition Make changes to your diet as told by your health care provider or diet and energy efficiency specialist (dietitian). This may include: ?Eating fewer calories. ?Eating more protein. ?Eating less unhealthy fats. ?Eating a diet that includes fresh fruits and vegetables, whole grains, low-fat dairy products, and lean protein. ?Avoiding foods with added fat, salt, and sugar. Drink plenty of water while you exercise to prevent dehydration or heat stroke. Activity Choose an activity that you enjoy and set realistic goals. Your health care provider can help you make an exercise plan that works for you. Exercise at a moderate or vigorous intensity most days of the week. ?The intensity of exercise may vary from person to person. You can tell how intense a workout is for you by paying attention to your breathing and heartbeat. Most people will notice their breathing and heartbeat get faster with more intense exercise. Do resistance training twice each week, such as: ?Push-ups. ?Sit-ups. ?Lifting weights. ?Using resistance bands. Getting short amounts of exercise can be just as helpful as long, structured periods of exercise. If you have trouble finding time to exercise, try doing these things as part of your daily routine: ?Get up, stretch, and walk around every 30 minutes throughout the day. ?Go for a walk during your lunch break. ?Park your car farther away from your destination. ?If you take public transportation, get off one stop early and walk the rest of the way. ?Make phone calls while standing up and walking around. ?Take the stairs instead of elevators or escalators. Wear comfortable clothes and shoes with good support. Do not exercise so much that you hurt yourself, feel dizzy, or get very short of breath. Where to find more information U.S. Department of Health and Human Services: www.hhs.gov Centers for Disease Control and Prevention: www.cdc.gov Contact a health care provider: Before starting a new exercise program. If you have questions or concerns about your weight. If you have a medical problem that keeps you from exercising. Get help right away if: You have any of the following while exercising: ?Injury. ?Dizziness. ?Difficulty breathing or shortness of breath that does not go away when you stop exercising. ?Chest pain. ?Rapid heartbeat. These symptoms may represent a serious problem that is an emergency. Do not wait to see if the symptoms will go away. Get medical help right away. Call your local emergency services (911 in the [place] Do not drive yourself to the hospital. Summary Getting regular exercise is especially important if you are overweight. Being overweight increases your risk of heart disease, stroke, diabetes, high blood pressure, and several types of cancer. Losing weight happens when you burn more calories than you eat. Reducing the amount of calories you eat, and getting regular moderate or vigorous exercise each week, helps you lose weight. This information is not intended to replace advice given to you by your health care provider. Make sure you discuss any questions you have with your health care provider. Document Revised: 12/21/2021 Document Reviewed: 12/21/2021 [employer] Patient Education 2022 [employer] Follow Up Care 02/03/2024 08:29:28 With:AURELIO BAJWA FAAFP, DAE Newsome, PED Address: [address], [place] [address]- When:Within 1 Month(s) [facility] 02-03-2024 [facility] Discharg e instructions Patient Education 02/03/2024 08:29:12 Exercising to Lose Weight Exercising to Lose Weight Getting regular exercise is important for everyone. It is especially important if you are overweight. Being overweight increases your risk of heart disease, stroke, diabetes, high blood pressure, and several types of cancer. Exercising, and reducing the calories you consume, can help you lose weight and improve fitness and health. Exercise can be moderate or vigorous intensity. To lose weight, most people need to do a certain amount of moderate or vigorous-intensity exercise each week. How can exercise affect me? You lose weight when you exercise enough to burn more calories than you eat. Exercise also reduces body fat and builds muscle. The more muscle you have, the more calories you burn. Exercise also: Improves mood. Reduces stress and tension. Improves your overall fitness, flexibility, and endurance. Increases bone strength. Moderate-intensity exercise Moderate-intensity exercise is any activity that gets you moving enough to burn at least three times more energy (calories) than if you were sitting. Examples of moderate exercise include: Walking a mile in 15 minutes. Doing light yard work. Biking at an easy pace. Most people should get at least 150 minutes of moderate-intensity exercise a week to maintain their body weight. Vigorous-intensity exercise Vigorous-intensity exercise is any activity that gets you moving enough to burn at least six times more calories than if you were sitting. When you exercise at this intensity, you should be working hard enough that you are not able to carry on a conversation. Examples of vigorous exercise include: Running. Playing a team sport, such as football, basketball, and soccer. Jumping rope. Most people should get at least 75 minutes a week of vigorous exercise to maintain their body weight. What actions can I take to lose weight? The amount of exercise you need to lose weight depends on: Your age. The type of exercise. Any health conditions you have. Your overall physical ability. Talk to your health care provider about how much exercise you need and what types of activities are safe for you. Nutrition Make changes to your diet as told by your health care provider or diet and energy efficiency specialist (dietitian). This may include: ?Eating fewer calories. ?Eating more protein. ?Eating less unhealthy fats. ?Eating a diet that includes fresh fruits and vegetables, whole grains, low-fat dairy products, and lean protein. ?Avoiding foods with added fat, salt, and sugar. Drink plenty of water while you exercise to prevent dehydration or heat stroke. Activity Choose an activity that you enjoy and set realistic goals. Your health care provider can help you make an exercise plan that works for you. Exercise at a moderate or vigorous intensity most days of the week. ?The intensity of exercise may vary from person to person. You can tell how intense a workout is for you by paying attention to your breathing and heartbeat. Most people will notice their breathing and heartbeat get faster with more intense exercise. Do resistance training twice each week, such as: ?Push-ups. ?Sit-ups. ?Lifting weights. ?Using resistance bands. Getting short amounts of exercise can be just as helpful as long, structured periods of exercise. If you have trouble finding time to exercise, try doing these things as part of your daily routine: ?Get up, stretch, and walk around every 30 minutes throughout the day. ?Go for a walk during your lunch break. ?Park your car farther away from your destination. ?If you take public transportation, get off one stop early and walk the rest of the way. ?Make phone calls while standing up and walking around. ?Take the stairs instead of elevators or escalators. Wear comfortable clothes and shoes with good support. Do not exercise so much that you hurt yourself, feel dizzy, or get very short of breath. Where to find more information U.S. Department of Health and Human Services: www.hhs.gov Centers for Disease Control and Prevention: www.cdc.gov Contact a health care provider: Before starting a new exercise program. If you have questions or concerns about your weight. If you have a medical problem that keeps you from exercising. Get help right away if: You have any of the following while exercising: ?Injury. ?Dizziness. ?Difficulty breathing or shortness of breath that does not go away when you stop exercising. ?Chest pain. ?Rapid heartbeat. These symptoms may represent a serious problem that is an emergency. Do not wait to see if the symptoms will go away. Get medical help right away. Call your local emergency services (911 in the [place] Do not drive yourself to the hospital. Summary Getting regular exercise is especially important if you are overweight. Being overweight increases your risk of heart disease, stroke, diabetes, high blood pressure, and several types of cancer. Losing weight happens when you burn more calories than you eat. Reducing the amount of calories you eat, and getting regular moderate or vigorous exercise each week, helps you lose weight. This information is not intended to replace advice given to you by your health care provider. Make sure you discuss any questions you have with your health care provider. Document Revised: 12/21/2021 Document Reviewed: 12/21/2021 [employer] Patient Education 20[employer]. Follow Up Care 11/04/2023 08:09:51 With:AURELIO BAJWA FAAFP, DAE Newsome, PED Address: [facility] [address], [place] [address]- When:Within 1 Month(s) [facility] 01-06-2024 Hospital Discharg e instructions Patient Education 01/06/2024 08:50:56 Budget-Friendly Healthy Eating Budget-Friendly Healthy Eating There are many ways to save money at the grocery store and continue to eat healthy. You can be successful if you: Plan meals according to your budget. Make a grocery list and only purchase food according to your grocery list. Prepare food yourself at home. What are tips for following this plan? Reading food labels Compare food labels between brand name foods and the store brand. Often the nutritional value is the same, but the store brand is lower cost. Look for products that do not have added sugar, fat, or salt (sodium). These often cost the same but are healthier for you. Products may be labeled as: ?Sugar-free. ?Nonfat. ?Low-fat. ?Sodium-free. ?Low-sodium. Look for lean ground beef labeled as at least 92% lean and 8% fat. Shopping Buy only the items on your grocery list and go only to the areas of the store that have the items on your list. Use coupons only for foods and brands you normally buy. Avoid buying items you wouldn't normally buy simply because they are on sale. Check online and in newspapers for weekly deals. Buy healthy items from the bulk bins when available, such as herbs, spices, flour, pasta, nuts, and dried fruit. Buy fruits and vegetables that are in season. Prices are usually lower on in-season produce. Look at the unit linda on the linda tag. Use it to compare different brands and sizes to find out which item is the best deal. Choose healthy items that are often low-cost, such as carrots, potatoes, apples, bananas, and oranges. Dried or canned beans are a low-cost protein source. Buy in bulk and freeze extra food. Items you can buy in bulk include meats, fish, poultry, frozen fruits, and frozen vegetables. Avoid buying xlecf-zl-fck foods, such as pre-cut fruits and vegetables and pre-made salads. If possible, shop around to discover where you can find the best prices. Consider other retailers such as [employer] stores, larger wholesale stores, local fruit and vegetable [employer], and [employer] markets. Do not shop when you are hungry. If you shop while hungry, it may be hard to stick to your list and budget. Resist impulse buying. Use your grocery list as your official plan for the week. Buy a variety of vegetables and fruits by purchasing fresh, frozen, and canned items. Look at the top and bottom shelves for deals. Foods at eye level (eye level of an adult or child) are usually more expensive. Be efficient with your time when shopping. The more time you spend at the store, the more money you are likely to spend. To save money when choosing more expensive foods like meats and dairy: ?Choose cheaper cuts of meat, such as bone-in chicken thighs and drumsticks instead of skinless and boneless chicken. When you are ready to prepare the chicken, you can remove the skin yourself to make it healthier. ?Choose lean meats like chicken or turkey instead of beef. ?Choose canned seafood, such as tuna, salmon, or sardines. ?Buy eggs as a low-cost source of protein. ?Buy dried beans and peas, such as lentils, split peas, or kidney beans instead of meats. Dried beans and peas are a good alternative source of protein. ?Buy the larger tubs of yogurt instead of individual-sized containers. Choose water instead of sodas and other sweetened beverages. Avoid buying chips, cookies, and other junk food. These items are usually expensive and not healthy. Cooking Make extra food and freeze the extras in meal-sized containers or in individual portions for fast meals and snacks. Pre-cook on days when you have extra time to prepare meals in advance. You can keep these meals in the fridge or freezer and reheat for a quick meal. When you come home from the grocery store, wash, peel, and cut fruits and vegetables so they are ready to use and eat. This will help reduce food waste. Meal planning Do not eat out or get fast food. Prepare food at home. Make a grocery list and make sure to bring it with you to the store. If you have a smart phone, you could use your phone to create your shopping list. Plan meals and snacks according to a grocery list and budget you create. Use leftovers in your meal plan for the week. Look for recipes where you can cook once and make enough food for two meals. Prepare budget-friendly types of meals like stews, casseroles, and stir-hope dishes. Try some meatless meals or try no cook meals like salads. Make sure that half your plate is filled with fruits or vegetables. Choose from fresh, frozen, or canned fruits and vegetables. If eating canned, remember to rinse them before eating. This will remove any excess salt added for packaging. Summary Eating healthy on a budget is possible if you plan your meals according to your budget, purchase according to your budget and grocery list, and prepare food yourself. Tips for buying more food on a limited budget include buying generic brands, using coupons only for foods you normally buy, and buying healthy items from the bulk bins when available. Tips for buying cheaper food to replace expensive food include choosing cheaper, lean cuts of meat, and buying dried beans and peas. This information is not intended to replace advice given to you by your health care provider. Make sure you discuss any questions you have with your health care provider. Document Revised: 08/07/2021 Document Reviewed: 08/07/2021 [employer] Patient Education 20[address] [employer]. Follow Up Care 11/04/2023 08:09:40 With:AURELIO BAJWA FAAFP, DAE Newsome, PED Address: [address], [place] [address]- When:Within 1 Month(s) [facility] 12-06-2023 [facility] Discharg e instructions Patient Education 12/06/2023 08:42:54 Mole Excision Mole Excision Mole excision is a procedure to remove (excise) a mole from the skin. Most moles are noncancerous (are benign) and do not require treatment. Some moles are larger than usual or look like cancerous moles (atypical moles). You may have a mole excision if: You have an atypical mole that your health care provider thinks should be looked at under a microscope to see if it is cancerous (biopsy). You have a mole that is causing pain. You have a mole that you want removed because you do not like the way it looks. Tell a health care provider about: Any allergies you have. All medicines you are taking, including vitamins, herbs, eye drops, creams, and vvxb-dck-nyepsvy medicines. Any problems you or family members have had with anesthetic medicines. Any bleeding problems you have. Any surgeries you have had. Any medical conditions you have. Whether you are or may be . What are the risks? Generally, this is a safe procedure. However, problems may occur, including: Excessive bleeding. Infection. Scarring. Allergic reactions to medicines. Damage to the skin or other tissues around the mole. What happens before the procedure? Ask your health care provider what steps will be taken to help prevent infection. These may include: Removing hair around the mole. Washing skin with a germ-killing soap. What happens during the procedure? You will be given a medicine to numb the area (local anesthetic). Your health care provider will outline the mole with ink and tamiko the center with a dot. This will serve as a guide during the procedure. Depending on the size of your mole, your health care provider will remove it using: ?A surgical blade. The mole will be cut out or shaved off (shave excision). ?A hollow tube with a sharp end (punch device). This may be used for larger moles. Your health care provider may use stitches (sutures) to close the wound in the skin where the mole was removed (excision site). Skin glue or adhesive strips may also be used. A bandage (dressing) may be applied over the area. The procedure may vary among health care providers and hospitals. What can I expect after the procedure? You may return to your normal activities as told by your health care provider. It is up to you to get any test results. If a sample will be tested in a lab, ask your health care provider or the department that is doing the procedure when your results will be ready. Talk with your health care provider about what your results mean. After the procedure, it is common to have: ?Mild pain. Your pain may increase as the anesthetic medicine wears off. ?Mild redness and swelling. Follow these instructions at home: Incision care Follow instructions from your health care provider about how to take care of your incision. Make sure you: ?Wash your hands with soap and water for at least 20 seconds before and after you change your bandage (dressing). If soap and water are not available, use hand framer. ?Change your dressing as told by your health care provider. ?Leave stitches (sutures), skin glue, or adhesive strips in place. These skin closures may need to stay in place for 2 weeks or longer. If adhesive strip edges start to loosen and curl up, you may trim the loose edges. Do not remove adhesive strips completely unless your health care provider tells you to do that. Check your incision area every day for signs of infection. Check for: ?More redness, swelling, or pain. ?Fluid or blood. ?Warmth. ?Pus or a bad smell. General instructions Take qmgd-suc-uawikdi and prescription medicines only as told by your health care provider. Follow instructions from your health care provider about how to minimize scarring. Avoid sun exposure until the area has healed. Scarring should lessen over time. ?To help prevent scarring, make sure to cover the area with sunscreen of at least SPF 30 after the wound has healed and all skin closures have been removed or have fallen off. Keep all follow-up visits. This is important. Contact a health care provider if: A mole grows back in the same place where a mole had been removed. You have a fever. You have more redness, swelling, or pain at the incision site. You have fluid or blood coming from your incision site. Your incision site feels warm to the touch. You have pus or a bad smell coming from your incision site. Your incision site feels numb for several days after the procedure. Summary Mole excision is a procedure to remove (excise) a mole from the skin. You will be given a medicine to numb the area (local anesthetic) during the procedure to remove the mole. After the procedure, it is common to have mild pain, redness, and swelling. Wash your hands with soap and water for at least 20 seconds before and after you change your bandage (dressing). If soap and water are not available, use hand framer. Contact your health care provider if you have problems or questions. This information is not intended to replace advice given to you by your health care provider. Make sure you discuss any questions you have with your health care provider. Document Revised: 07/16/2022 Document Reviewed: 07/16/2022 [employer] Patient Education 2022 [employer]. Follow Up Care 11/04/2023 08:09:24 With:AURELIO BAJWA FAAFP, DAE Newsome, PED Address: [address] [place] [address] [place] [address]- When:Within 1 Month(s) [facility] 11-04-2023 Hospital Discharg e instructions Patient Education 11/04/2023 07:55:50 Exercising to Lose Weight Exercising to Lose Weight Getting regular exercise is important for everyone. It is especially important if you are overweight. Being overweight increases your risk of heart disease, stroke, diabetes, high blood pressure, and several types of cancer. Exercising, and reducing the calories you consume, can help you lose weight and improve fitness and health. Exercise can be moderate or vigorous intensity. To lose weight, most people need to do a certain amount of moderate or vigorous-intensity exercise each week. How can exercise affect me? You lose weight when you exercise enough to burn more calories than you eat. Exercise also reduces body fat and builds muscle. The more muscle you have, the more calories you burn. Exercise also: Improves mood. Reduces stress and tension. Improves your overall fitness, flexibility, and endurance. Increases bone strength. Moderate-intensity exercise Moderate-intensity exercise is any activity that gets you moving enough to burn at least three times more energy (calories) than if you were sitting. Examples of moderate exercise include: Walking a mile in 15 minutes. Doing light yard work. Biking at an easy pace. Most people should get at least 150 minutes of moderate-intensity exercise a week to maintain their body weight. Vigorous-intensity exercise Vigorous-intensity exercise is any activity that gets you moving enough to burn at least six times more calories than if you were sitting. When you exercise at this intensity, you should be working hard enough that you are not able to carry on a conversation. Examples of vigorous exercise include: Running. Playing a team sport, such as football, basketball, and soccer. Jumping rope. Most people should get at least 75 minutes a week of vigorous exercise to maintain their body weight. What actions can I take to lose weight? The amount of exercise you need to lose weight depends on: Your age. The type of exercise. Any health conditions you have. Your overall physical ability. Talk to your health care provider about how much exercise you need and what types of activities are safe for you. Nutrition Make changes to your diet as told by your health care provider or diet and energy efficiency specialist (dietitian). This may include: ?Eating fewer calories. ?Eating more protein. ?Eating less unhealthy fats. ?Eating a diet that includes fresh fruits and vegetables, whole grains, low-fat dairy products, and lean protein. ?Avoiding foods with added fat, salt, and sugar. Drink plenty of water while you exercise to prevent dehydration or heat stroke. Activity Choose an activity that you enjoy and set realistic goals. Your health care provider can help you make an exercise plan that works for you. Exercise at a moderate or vigorous intensity most days of the week. ?The intensity of exercise may vary from person to person. You can tell how intense a workout is for you by paying attention to your breathing and heartbeat. Most people will notice their breathing and heartbeat get faster with more intense exercise. Do resistance training twice each week, such as: ?Push-ups. ?Sit-ups. ?Lifting weights. ?Using resistance bands. Getting short amounts of exercise can be just as helpful as long, structured periods of exercise. If you have trouble finding time to exercise, try doing these things as part of your daily routine: ?Get up, stretch, and walk around every 30 minutes throughout the day. ?Go for a walk during your lunch break. ?Park your car farther away from your destination. ?If you take public transportation, get off one stop early and walk the rest of the way. ?Make phone calls while standing up and walking around. ?Take the stairs instead of elevators or escalators. Wear comfortable clothes and shoes with good support. Do not exercise so much that you hurt yourself, feel dizzy, or get very short of breath. Where to find more information [place] Department of Health and Human Services: www.hhs.gov Centers for Disease Control and Prevention: www.cdc.gov Contact a health care provider: Before starting a new exercise program. If you have questions or concerns about your weight. If you have a medical problem that keeps you from exercising. Get help right away if: You have any of the following while exercising: ?Injury. ?Dizziness. ?Difficulty breathing or shortness of breath that does not go away when you stop exercising. ?Chest pain. ?Rapid heartbeat. These symptoms may represent a serious problem that is an emergency. Do not wait to see if the symptoms will go away. Get medical help right away. Call your local emergency services (911 in the [place] Do not drive yourself to the hospital. Summary Getting regular exercise is especially important if you are overweight. Being overweight increases your risk of heart disease, stroke, diabetes, high blood pressure, and several types of cancer. Losing weight happens when you burn more calories than you eat. Reducing the amount of calories you eat, and getting regular moderate or vigorous exercise each week, helps you lose weight. This information is not intended to replace advice given to you by your health care provider. Make sure you discuss any questions you have with your health care provider. Document Revised: 12/21/2021 Document Reviewed: 12/21/2021 [employer] Patient Education 2022 [employer]. Follow Up Care 05/03/2023 08:02:20 With:AURELIO BAJWA FAAFP, [place], DAE, PED Address: [place] [address]- When:Within 1 Month(s) [facility] 05-03-2023 Hospital Discharg e instructions Patient Education 05/03/2023 07:53:32 Exercising to Lose Weight Exercising to Lose Weight Getting regular exercise is important for everyone. It is especially important if you are overweight. Being overweight increases your risk of heart disease, stroke, diabetes, high blood pressure, and several types of cancer. Exercising, and reducing the calories you consume, can help you lose weight and improve fitness and health. Exercise can be moderate or vigorous intensity. To lose weight, most people need to do a certain amount of moderate or vigorous-intensity exercise each week. How can exercise affect me? You lose weight when you exercise enough to burn more calories than you eat. Exercise also reduces body fat and builds muscle. The more muscle you have, the more calories you burn. Exercise also: Improves mood. Reduces stress and tension. Improves your overall fitness, flexibility, and endurance. Increases bone strength. Moderate-intensity exercise Moderate-intensity exercise is any activity that gets you moving enough to burn at least three times more energy (calories) than if you were sitting. Examples of moderate exercise include: Walking a mile in 15 minutes. Doing light yard work. Biking at an easy pace. Most people should get at least 150 minutes of moderate-intensity exercise a week to maintain their body weight. Vigorous-intensity exercise Vigorous-intensity exercise is any activity that gets you moving enough to burn at least six times more calories than if you were sitting. When you exercise at this intensity, you should be working hard enough that you are not able to carry on a conversation. Examples of vigorous exercise include: Running. Playing a team sport, such as football, basketball, and soccer. Jumping rope. Most people should get at least 75 minutes a week of vigorous exercise to maintain their body weight. What actions can I take to lose weight? The amount of exercise you need to lose weight depends on: Your age. The type of exercise. Any health conditions you have. Your overall physical ability. Talk to your health care provider about how much exercise you need and what types of activities are safe for you. Nutrition Make changes to your diet as told by your health care provider or diet and energy efficiency specialist (dietitian). This may include: ?Eating fewer calories. ?Eating more protein. ?Eating less unhealthy fats. ?Eating a diet that includes fresh fruits and vegetables, whole grains, low-fat dairy products, and lean protein. ?Avoiding foods with added fat, salt, and sugar. Drink plenty of water while you exercise to prevent dehydration or heat stroke. Activity Choose an activity that you enjoy and set realistic goals. Your health care provider can help you make an exercise plan that works for you. Exercise at a moderate or vigorous intensity most days of the week. ?The intensity of exercise may vary from person to person. You can tell how intense a workout is for you by paying attention to your breathing and heartbeat. Most people will notice their breathing and heartbeat get faster with more intense exercise. Do resistance training twice each week, such as: ?Push-ups. ?Sit-ups. ?Lifting weights. ?Using resistance bands. Getting short amounts of exercise can be just as helpful as long, structured periods of exercise. If you have trouble finding time to exercise, try doing these things as part of your daily routine: ?Get up, stretch, and walk around every 30 minutes throughout the day. ?Go for a walk during your lunch break. ?Park your car farther away from your destination. ?If you take public transportation, get off one stop early and walk the rest of the way. ?Make phone calls while standing up and walking around. ?Take the stairs instead of elevators or escalators. Wear comfortable clothes and shoes with good support. Do not exercise so much that you hurt yourself, feel dizzy, or get very short of breath. Where to find more information [place] Department of Health and Human Services: www.hhs.gov Centers for Disease Control and Prevention: www.cdc.gov Contact a health care provider: Before starting a new exercise program. If you have questions or concerns about your weight. If you have a medical problem that keeps you from exercising. Get help right away if: You have any of the following while exercising: ?Injury. ?Dizziness. ?Difficulty breathing or shortness of breath that does not go away when you stop exercising. ?Chest pain. ?Rapid heartbeat. These symptoms may represent a serious problem that is an emergency. Do not wait to see if the symptoms will go away. Get medical help right away. Call your local emergency services (911 in the [place] Do not drive yourself to the hospital. Summary Getting regular exercise is especially important if you are overweight. Being overweight increases your risk of heart disease, stroke, diabetes, high blood pressure, and several types of cancer. Losing weight happens when you burn more calories than you eat. Reducing the amount of calories you eat, and getting regular moderate or vigorous exercise each week, helps you lose weight. This information is not intended to replace advice given to you by your health care provider. Make sure you discuss any questions you have with your health care provider. Document Revised: 12/21/2021 Document Reviewed: 12/21/2021 Elsevier Patient Education 2022 [employer]. Follow Up Care 01/22/2023 13:52:08 With:AURELIO BAJWA FAAFP, [place], DAE, PED Address: [address], [place] [address]- When:Within 6 Month(s) [facility] 02-22-2023 Hospital Discharg e instructions Patient Education 02/22/2023 15:09:52 Budget-Friendly Healthy Eating Budget-Friendly Healthy Eating There are many ways to save money at the grocery store and continue to eat healthy. You can be successful if you: Plan meals according to your budget. Make a grocery list and only purchase food according to your grocery list. Prepare food yourself. What are tips for following this plan? Reading food labels Compare food labels between brand name foods and the store brand. Often the nutritional value is the same, but the store brand is lower cost. Look for products that do not have added sugar, fat, or salt (sodium). These often cost the same but are healthier for you. Products may be labeled as: ?Sugar-free. ?Nonfat. ?Low-fat. ?Sodium-free. ?Low-sodium. Look for lean ground beef labeled as at least 92% lean and 8% fat. Shopping Buy only the items on your grocery list and go only to the areas of the store that have the items on your list. Use coupons only for foods and brands you normally buy. Avoid buying items you wouldn't normally buy simply because they are on sale. Check online and in newspapers for weekly deals. Buy healthy items from the bulk bins when available, such as herbs, spices, flour, pasta, nuts, and dried fruit. Buy fruits and vegetables that are in season. Prices are usually lower on in-season produce. Look at the unit linda on the linda tag. Use it to compare different brands and sizes to find out which item is the best deal. Choose healthy items that are often low-cost, such as carrots, potatoes, apples, bananas, and oranges. Dried or canned beans are a low-cost protein source. Buy in bulk and freeze extra food. Items you can buy in bulk include meats, fish, poultry, frozen fruits, and frozen vegetables. Avoid buying nacbx-sh-yvl foods, such as pre-cut fruits and vegetables and pre-made salads. If possible, shop around to discover where you can find the best prices. Consider other retailers such as dollar stores, larger wholesale stores, local fruit and vegetable [employer], and [employer] markets. Do not shop when you are hungry. If you shop while hungry, it may be hard to stick to your list and budget. Resist impulse buying. Use your grocery list as your official plan for the week. Buy a variety of vegetables and fruits by purchasing fresh, frozen, and canned items. Look at the top and bottom shelves for deals. Foods at eye level (eye level of an adult or child) are usually more expensive. Be efficient with your time when shopping. The more time you spend at the store, the more money you are likely to spend. To save money when choosing more expensive foods like meats and dairy: ?Choose cheaper cuts of meat, such as bone-in chicken thighs and drumsticks instead of skinless and boneless chicken. When you are ready to prepare the chicken, you can remove the skin yourself to make it healthier. ?Choose lean meats like chicken or turkey instead of beef. ?Choose canned seafood, such as tuna, salmon, or sardines. ?Buy eggs as a low-cost source of protein. ?Buy dried beans and peas, such as lentils, split peas, or kidney beans instead of meats. Dried beans and peas are a good alternative source of protein. ?Buy the larger tubs of yogurt instead of individual-sized containers. Choose water instead of sodas and other sweetened beverages. Avoid buying chips, cookies, and other junk food. These items are usually expensive and not healthy. Cooking Make extra food and freeze the extras in meal-sized containers or in individual portions for fast meals and snacks. Pre-cook on days when you have extra time to prepare meals in advance. You can keep these meals in the fridge or freezer and reheat for a quick meal. When you come home from the grocery store, wash, peel, and cut fruits and vegetables so they are ready to use and eat. This will help reduce food waste. Meal planning Do not eat out or get fast food. Prepare food at home. Make a grocery list and make sure to bring it with you to the store. If you have a smart phone, you could use your phone to create your shopping list. Plan meals and snacks according to a grocery list and budget you create. Use leftovers in your meal plan for the week. Look for recipes where you can cook once and make enough food for two meals. Include budget-friendly meals like stews, casseroles, and stir-hope dishes. Try some meatless meals or try no cook meals like salads. Make sure that half your plate is filled with fruits or vegetables. Choose from fresh, frozen, or canned fruits and vegetables. If eating canned, remember to rinse them before eating. This will remove any excess salt added for packaging. Summary Eating healthy on a budget is possible if you plan your meals according to your budget, purchase according to your budget and grocery list, and prepare food yourself. Tips for buying more food on a limited budget include buying generic brands, using coupons only for foods you normally buy, and buying healthy items from the bulk bins when available. Tips for buying cheaper food to replace expensive food include choosing cheaper, lean cuts of meat, and buying dried beans and peas. This information is not intended to replace advice given to you by your health care provider. Make sure you discuss any questions you have with your health care provider. Document Released: 06/28/2015 Document Revised: 10/26/2018 Document Reviewed: 10/26/2018 [employer] Patient Education [address] [employer]. Follow Up Care 01/22/2023 13:49:16 With:AURELIO BAJWA FAAFP, [place], DAE, PED Address: [address] [place] [address] [facility] [place] [address]- When:Within 1 Month(s) [facility] 01-22-2023 Hospital Discharg e instructions Patient Education 01/22/2023 13:40:13 Exercising to Lose Weight Exercising to Lose Weight Exercise is structured, repetitive physical activity to improve fitness and health. Getting regular exercise is important for everyone. It is especially important if you are overweight. Being overweight increases your risk of heart disease, stroke, diabetes, high blood pressure, and several types of cancer. Reducing your calorie intake and exercising can help you lose weight. Exercise is usually categorized as moderate or vigorous intensity. To lose weight, most people need to do a certain amount of moderate-intensity or vigorous-intensity exercise each week. Moderate-intensity exercise Moderate-intensity exercise is any activity that gets you moving enough to burn at least three times more energy (calories) than if you were sitting. Examples of moderate exercise include: Walking a mile in 15 minutes. Doing light yard work. Biking at an easy pace. Most people should get at least 150 minutes (2 hours and 30 minutes) a week of moderate-intensity exercise to maintain their body weight. Vigorous-intensity exercise Vigorous-intensity exercise is any activity that gets you moving enough to burn at least six times more calories than if you were sitting. When you exercise at this intensity, you should be working hard enough that you are not able to carry on a conversation. Examples of vigorous exercise include: Running. Playing a team sport, such as football, basketball, and soccer. Jumping rope. Most people should get at least 75 minutes (1 hour and 15 minutes) a week of vigorous-intensity exercise to maintain their body weight. How can exercise affect me? When you exercise enough to burn more calories than you eat, you lose weight. Exercise also reduces body fat and builds muscle. The more muscle you have, the more calories you burn. Exercise also: Improves mood. Reduces stress and tension. Improves your overall fitness, flexibility, and endurance. Increases bone strength. The amount of exercise you need to lose weight depends on: Your age. The type of exercise. Any health conditions you have. Your overall physical ability. Talk to your health care provider about how much exercise you need and what types of activities are safe for you. What actions can I take to lose weight? Nutrition Make changes to your diet as told by your health care provider or diet and energy efficiency specialist (dietitian). This may include: ?Eating fewer calories. ?Eating more protein. ?Eating less unhealthy fats. ?Eating a diet that includes fresh fruits and vegetables, whole grains, low-fat dairy products, and lean protein. ?Avoiding foods with added fat, salt, and sugar. Drink plenty of water while you exercise to prevent dehydration or heat stroke. Activity Choose an activity that you enjoy and set realistic goals. Your health care provider can help you make an exercise plan that works for you. Exercise at a moderate or vigorous intensity most days of the week. ?The intensity of exercise may vary from person to person. You can tell how intense a workout is for you by paying attention to your breathing and heartbeat. Most people will notice their breathing and heartbeat get faster with more intense exercise. Do resistance training twice each week, such as: ?Push-ups. ?Sit-ups. ?Lifting weights. ?Using resistance bands. Getting short amounts of exercise can be just as helpful as long structured periods of exercise. If you have trouble finding time to exercise, try to include exercise in your daily routine. ?Get up, stretch, and walk around every 30 minutes throughout the day. ?Go for a walk during your lunch break. ?Park your car farther away from your destination. ?If you take public transportation, get off one stop early and walk the rest of the way. ?Make phone calls while standing up and walking around. ?Take the stairs instead of elevators or escalators. Wear comfortable clothes and shoes with good support. Do not exercise so much that you hurt yourself, feel dizzy, or get very short of breath. Where to find more information U.[place]. Department of Health and Human Services: www.hhs.gov Centers for Disease Control and Prevention (CDC): www.cdc.gov Contact a health care provider: Before starting a new exercise program. If you have questions or concerns about your weight. If you have a medical problem that keeps you from exercising. Get help right away if you have any of the following while exercising: Injury. Dizziness. Difficulty breathing or shortness of breath that does not go away when you stop exercising. Chest pain. Rapid heartbeat. Summary Being overweight increases your risk of heart disease, stroke, diabetes, high blood pressure, and several types of cancer. Losing weight happens when you burn more calories than you eat. Reducing the amount of calories you eat in addition to getting regular moderate or vigorous exercise each week helps you lose weight. This information is not intended to replace advice given to you by your health care provider. Make sure you discuss any questions you have with your health care provider. Document Released: 11/27/2011 Document Revised: 11/07/2018 Document Reviewed: 11/07/2018 [employer] Patient Education 2020 [employer]. Follow Up Care 01/21/2023 16:09:28 With:AURELIO BAJWA FAAFP, DAE Newsome, PED Address: [address], [place] [address]- When:Within 1 Month(s) [facility] 01-14-2023 Evaluation + Plan note Future Scheduled TestsGlucose Fasting 01/14/23Lipid Panel 01/14/23 [facility] 01-14-2023 Hospital Discharg e instructions Patient Education 01/14/2023 08:17:55 Budget-Friendly Healthy Eating Budget-Friendly Healthy Eating There are many ways to save money at the grocery store and continue to eat healthy. You can be successful if you: Plan meals according to your budget. Make a grocery list and only purchase food according to your grocery list. Prepare food yourself. What are tips for following this plan? Reading food labels Compare food labels between brand name foods and the store brand. Often the nutritional value is the same, but the store brand is lower cost. Look for products that do not have added sugar, fat, or salt (sodium). These often cost the same but are healthier for you. Products may be labeled as: ?Sugar-free. ?Nonfat. ?Low-fat. ?Sodium-free. ?Low-sodium. Look for lean ground beef labeled as at least 92% lean and 8% fat. Shopping Buy only the items on your grocery list and go only to the areas of the store that have the items on your list. Use coupons only for foods and brands you normally buy. Avoid buying items you wouldn't normally buy simply because they are on sale. Check online and in newspapers for weekly deals. Buy healthy items from the bulk bins when available, such as herbs, spices, flour, pasta, nuts, and dried fruit. Buy fruits and vegetables that are in season. Prices are usually lower on in-season produce. Look at the unit linda on the linda tag. Use it to compare different brands and sizes to find out which item is the best deal. Choose healthy items that are often low-cost, such as carrots, potatoes, apples, bananas, and oranges. Dried or canned beans are a low-cost protein source. Buy in bulk and freeze extra food. Items you can buy in bulk include meats, fish, poultry, frozen fruits, and frozen vegetables. Avoid buying qzltf-wh-knc foods, such as pre-cut fruits and vegetables and pre-made salads. If possible, shop around to discover where you can find the best prices. Consider other retailers such as [employer] stores, larger wholesale stores, local fruit and vegetable [employer], and [employer] markets. Do not shop when you are hungry. If you shop while hungry, it may be hard to stick to your list and budget. Resist impulse buying. Use your grocery list as your official plan for the week. Buy a variety of vegetables and fruits by purchasing fresh, frozen, and canned items. Look at the top and bottom shelves for deals. Foods at eye level (eye level of an adult or child) are usually more expensive. Be efficient with your time when shopping. The more time you spend at the store, the more money you are likely to spend. To save money when choosing more expensive foods like meats and dairy: ?Choose cheaper cuts of meat, such as bone-in chicken thighs and drumsticks instead of skinless and boneless chicken. When you are ready to prepare the chicken, you can remove the skin yourself to make it healthier. ?Choose lean meats like chicken or turkey instead of beef. ?Choose canned seafood, such as tuna, salmon, or sardines. ?Buy eggs as a low-cost source of protein. ?Buy dried beans and peas, such as lentils, split peas, or kidney beans instead of meats. Dried beans and peas are a good alternative source of protein. ?Buy the larger tubs of yogurt instead of individual-sized containers. Choose water instead of sodas and other sweetened beverages. Avoid buying chips, cookies, and other junk food. These items are usually expensive and not healthy. Cooking Make extra food and freeze the extras in meal-sized containers or in individual portions for fast meals and snacks. Pre-cook on days when you have extra time to prepare meals in advance. You can keep these meals in the fridge or freezer and reheat for a quick meal. When you come home from the grocery store, wash, peel, and cut fruits and vegetables so they are ready to use and eat. This will help reduce food waste. Meal planning Do not eat out or get fast food. Prepare food at home. Make a grocery list and make sure to bring it with you to the store. If you have a smart phone, you could use your phone to create your shopping list. Plan meals and snacks according to a grocery list and budget you create. Use leftovers in your meal plan for the week. Look for recipes where you can cook once and make enough food for two meals. Include budget-friendly meals like stews, casseroles, and stir-hope dishes. Try some meatless meals or try no cook meals like salads. Make sure that half your plate is filled with fruits or vegetables. Choose from fresh, frozen, or canned fruits and vegetables. If eating canned, remember to rinse them before eating. This will remove any excess salt added for packaging. Summary Eating healthy on a budget is possible if you plan your meals according to your budget, purchase according to your budget and grocery list, and prepare food yourself. Tips for buying more food on a limited budget include buying generic brands, using coupons only for foods you normally buy, and buying healthy items from the bulk bins when available. Tips for buying cheaper food to replace expensive food include choosing cheaper, lean cuts of meat, and buying dried beans and peas. This information is not intended to replace advice given to you by your health care provider. Make sure you discuss any questions you have with your health care provider. Document Released: 06/28/2015 Document Revised: 10/26/2018 Document Reviewed: 10/26/2018 [employer] Patient Education 2020 [employer] Follow Up Care 12/01/2022 10:38:14 With:Mc RAY DO, FAAFP, FAM, PED Address: [place] [address]- When:Within 1 Year(s) [facility] Evaluation + Plan note Future Appointments Appointment Date:02/22/2023 02:40:00 PM Scheduled Provider:Mc RAY DO, FAAFP Location:[facility] Appointment Type:FM Open Appointment Date:03/26/2023 01:20:00 PM Scheduled Provider:Mc RAY DO, FAAFP Location:[facility] Appointment Type: Open Appointment Date:04/30/2023 01:20:00 PM Scheduled Provider:Mc RAY DO, FAAFP Location:[facility] Appointment Type: Open [facility] Evaluation + Plan note Future Appointments Appointment Date:03/26/2023 01:20:00 PM Scheduled Provider:Mc RAY DO, FAAFP Location:[facility] Appointment Type:FM Open Appointment Date:04/30/2023 01:20:00 PM Scheduled Provider:Mc RAY DO, FAAFP Location:[facility] Appointment Type: Open [facility] Evaluation + Plan note Future Appointments Appointment Date:11/04/2023 07:40:00 AM Scheduled Provider:Mc RAY DO, FAAFP Location:[facility] Appointment Type: Open [facility] Evaluation + Plan note Future Appointments Appointment Date:12/06/2023 08:20:00 AM Scheduled Provider:Mc RAY DO, FAAFP Location:[facility] Appointment Type:FM Open Appointment Date:01/06/2024 08:20:00 AM Scheduled Provider:Mc RAY DO, FAAFP Location:[facility] Appointment Type:FM Open Appointment Date:02/03/2024 08:00:00 AM Scheduled Provider:Mc RAY DO, FAAFP Location:[facility] Appointment Type:[facility] Evaluation + Plan note Future Appointments Appointment Date:01/06/2024 08:20:00 AM Scheduled Provider:Mc RAY DO, FAAFP Location:[facility] Appointment Type: Open Appointment Date:02/03/2024 08:00:00 AM Scheduled Provider:Mc RAY DO, FAAFP Location:[facility] Appointment Type:[facility] Evaluation + Plan note Future Appointments Appointment Date:02/03/2024 08:00:00 AM Scheduled Provider:Mc RAY DO, FAAFP Location:[facility] Appointment Type:[facility] Evaluation + Plan note Future Appointments Appointment Date:03/06/2024 07:40:00 AM Scheduled Provider:Mc RAY DO, FAAFP Location:[facility] Appointment Type: Open Appointment Date:03/30/2024 08:20:00 AM Scheduled Provider:Mc RAY DO, FAAFP Location:[facility] Appointment Type: Open Appointment Date:05/04/2024 08:20:00 AM Scheduled Provider:Mc RAY DO, FAAFP Location:[facility] Appointment Type:[facility] Evaluation + Plan note Future Appointments Appointment Date:03/30/2024 08:20:00 AM Scheduled Provider:Mc RAY DO, FAAFP Location:[facility] Appointment Type: Open Appointment Date:05/04/2024 08:20:00 AM Scheduled Provider:Mc RAY DO, FAAFP Location:[facility] Appointment Type:[facility] Evaluation + Plan note Future Appointments Appointment Date:05/04/2024 08:20:00 AM Scheduled Provider:Mc RAY DO, FAAFP Location:[facility] Appointment Type:[facility] Evaluation note Diagnosis Encounter for repeat Pap smear due to previous insufficient cervical cells [facility] Diagnosis Nexplanon removal documented [facility]* Diagnosis Missed menses , unspecified gestational age Encounter for supervision of normal first in first trimester [facility] Narrative No data available for this section [facility] Hospital Discharge instructions No data [facility] for this [facility] No data available for this section [facility] Summary Purpose Family History No Family History Records Found Advance Directives No Advanced Directives Records FoundNo Advanced Directives Records Found Additional Source Comments Patient Care team informatio n (unrecognized section and content) Lead Case Manager Relationship Specialty Start Date End Date Mc Ray MD [address] [place] [id number] PCP - General Family Medicine 05/27/23 Lead Case Manager Relationship Specialty Start Date End Date Mc Ray MD [address] [place] [phone] PCP - General Family Medicine 05/27/23 Lead Case Manager Relationship Specialty Start Date End Date Mc Ray MD [address] [place] [id number] PCP - General Family Medicine 05/27/23 Lead Case Manager Relationship Specialty Start Date End Date Mc Ray MD [address] [place] [address] PCP - General Family Medicine 05/27/23 Reason for Visit (unrecogniz ed section and content) Reason Comments Well Women Visit Reason Comments Nexplanon Removal Reason Comments Amenorrhea INFORMATION SOURCE (unrecogn ized section and content) DATE CREATED AUTHOR 01/31/2025 Christiano Aiken [facility] DATE CREATED AUTHOR AUTHOR'S GLENDA RALPHZEFERINO 03/14/2025 [facility] dical Specialists [facility] FOR RECORDS PERTAINING TO PATIENTS WHO ARE OR HAVE BEEN ENROLLED IN A CHEMICAL DEPENDENCY/SUBSTANCEABUSE PROGRAM, SOME INFORMATION MAY BE OMITTED. This clinical summary was aggregated from multiple sources. Caution should be exercised in using it in the provision of clinical care. This summary normalizes information from multiple sources, and as a consequence, information in this document may materially change the coding, format and clinical context of patient data. In addition, data may be omitted in some cases. CLINICAL DECISIONS SHOULD BE BASED ON THE PRIMARY CLINICAL RECORDS. [facility]. provides no warranty or guarantee of the accuracy or completeness of information in this document.
[2025-03-19 08:42] LABS: BOX Test Reference Lab UNITY; BOX Test Sent Out UNITY
[2025-03-19 08:46] LABS: Basophils Percent Auto 0.2 % (0.2-2.0); Eosinophils Absolute Auto 0.1 10^3/uL (0.0-0.7); Eosinophils Percent Auto 0.8 % (0.9-7.0); Hematocrit 37.5 % (36.0-48.0); Hemoglobin 12.5 g/dL (12.0-16.0); Immature Granulocytes Abs Auto 0.03 10^3/uL (0.00-0.03); Immature Granulocytes Pct Auto 0.4 % (0.0-0.5); Lymphocytes Absolute Auto 1.9 10^3/uL (1.2-3.8); Lymphocytes Percent Auto 22.1 % (20.5-60.0); Mean Corpuscular HGB Conc 33.3 g/dL (29.9-35.2); Mean Corpuscular Hemoglobin 27.8 pg (26.7-34.0); Mean Corpuscular Volume 83.3 fL (81.0-99.0); Mean Platelet Volume 9.6 fL (9.5-13.5); Monocytes Absolute Auto 0.7 10^3/uL (0.3-0.8); Monocytes Percent Auto 8.1 % (1.7-12.0); Neutrophils Absolute Auto 5.9 10^3/uL (1.4-6.5); Neutrophils Percent Auto 68.4 % (43.0-75.0); Platelet Count 213 10^3/uL (150-450); Red Cell Distribution Width 12.8 % (11.0-15.0); White Blood Count 8.6 10^3/uL (4.0-11.0)
[2025-03-19 09:04] LABS: Estimated Average Glucose 114 mg/dL; Glycohemoglobin A1C 5.6 % (4.5-6.2)
[2025-03-19 10:20] LABS: Amphetamine Screen Urine NEGATIVE (NEGATIVE); Barbiturates Screen Urine NEGATIVE (NEGATIVE); Benzodiazepines Screen Urine NEGATIVE (NEGATIVE); Buprenorphine Screen Urine NEGATIVE (NEGATIVE); Cannabinoid Screen Urine NEGATIVE (NEGATIVE); Cocaine Screen Urine NEGATIVE (NEGATIVE); Methadone Screen Urine NEGATIVE (NEGATIVE); Methamphetamines Screen Urine NEGATIVE (NEGATIVE); Opiate Screen Urine NEGATIVE (NEGATIVE); Oxycodone Screen Urine NEGATIVE (NEGATIVE); Phencyclidine Screen Urine NEGATIVE (NEGATIVE); Tricyclic Antidepressant Urine NEGATIVE (NEGATIVE)
[2025-03-20 05:07] LABS: HIV Ab/p24 Ag Screen Non Reactive (Non Reactive)
[2025-03-20 06:07] LABS: HBsAg Screen Negative (Negative); HCV Ab Non Reactive (Non Reactive)
[2025-03-20 07:07] LABS: Rubella Antibodies, IgG 1.66 index (Immune >0.99)
[2025-03-20 12:08] LABS: Rapid Plasma Reagin, Quant Non Reactive titer (NonRea<1:1)
== END 2025-03-19 08:10 | disposition home or self-care (01) ==
LOC: LAB 08:14
PROVIDERS: PCP Family Medicine; Visit Provider Obstetrics & Gynecology
DX: Z34.01 Encounter for supervision of normal first pregnancy, first trimester (principal); Z36.0 Encounter for antenatal screening for chromosomal anomalies; N92.6 Irregular menstruation, unspecified
CPT/HCPCS: 36415; 80307; 83036; 85025; 86592; 86762; 86803; 86850; 86900; 86901; 87077; 87086; 87186; 87340; 87389

== ENCOUNTER 2025-05-21 08:19 | Outpatient (OUT) | payer BC, SELFPAY | END 2025-05-21 08:20 | disposition home or self-care (01) | LOC: LAB 08:21 | PROVIDERS: PCP Family Medicine; Visit Provider Obstetrics & Gynecology | DX: Z34.92 Encounter for supervision of normal pregnancy, unspecified, second trimester (principal) | CPT/HCPCS: 36415; 82105 ==

== ENCOUNTER 2025-06-04 18:54 | Outpatient (OUT) | payer BC, SELFPAY ==
--- NOTE | 2025-06-04 | US_ITS ---
The [address] [address] Patient Name: ALEJO OVERTON MRN: [id number] date: 2000 Sex: F Assigned Patient Location: Current Patient Location: US Accession/Order Number: [id number] Exam Date: 06/04/2025 21:13 Report Date: 06/04/2025 21:22 At the request of: JESSIE DAMON DO Procedure: US OB cervical length OB ultrasound, cervical length ultrasound Reason for exam: Anatomy survey. COMPARISON: None. TECHNIQUE: Transabdominal imaging of the gravid uterus was obtained. FINDINGS: Single live intrauterine measuring 19 weeks 6 days by anatomic measurements, appropriate growth for dating. Estimated weight is 324 g which is the 44th percentile. heart rate 1 43 bpm. EMILY was not calculated. Cervical length measures 4.11 cm without evidence of funneling. Placenta appears anterior in location without focal abnormality. Placenta is approximately 2.1 cm from the internal os. Anatomy survey demonstrates no anomalies noted. Three-vessel cord is present. No ventriculomegaly. Nasal bone is present. Suboptimal visualization of the spine and extremities. Four-chamber heart is noted. Outflow tracts appear unremarkable. US/US OB anatomy IMPRESSION: Incomplete anatomical survey with suboptimal visualization of the extremities and spine. Completion of the anatomic survey in 1-2 weeks is suggested. Normal cervical length without evidence of funneling. Impression dictated by: Juan Francisco Abel Jr., D.O. 06/04/2025 9:22 PM [facility]ict[facility] Electron[facility] authenticated by: [id number] Y Date: 06/04/2025 21:22
--- NOTE | 2025-06-04 | US_ITS ---
The [address] [address] Patient Name: ALEJO OVERTON MRN: [id number] date: 2000 Sex: F Assigned Patient Location: Current Patient Location: Accession/Order Number: [id number] Exam Date: 06/04/2025 21:13 Report Date: 06/04/2025 21:22 At the request of: JESSIE DAMON DO Procedure: US OB cervical length OB ultrasound, cervical length ultrasound Reason for exam: Anatomy survey. COMPARISON: None. TECHNIQUE: Transabdominal imaging of the gravid uterus was obtained. FINDINGS: Single live intrauterine measuring 19 weeks 6 days by anatomic measurements, appropriate growth for dating. Estimated weight is 324 g which is the 44th percentile. heart rate 1 43 bpm. EMILY was not calculated. Cervical length measures 4.11 cm without evidence of funneling. Placenta appears anterior in location without focal abnormality. Placenta is approximately 2.1 cm from the internal os. Anatomy survey demonstrates no anomalies noted. Three-vessel cord is present. No ventriculomegaly. Nasal bone is present. Suboptimal visualization of the spine and extremities. Four-chamber heart is noted. Outflow tracts appear unremarkable. US/US OB cervical length IMPRESSION: Incomplete anatomical survey with suboptimal visualization of the extremities and spine. Completion of the anatomic survey in 1-2 weeks is suggested. Normal cervical length without evidence of funneling. Impression dictated by: Juan Francisco Abel Jr., D.O. 06/04/2025 9:22 PM Dictation Location: [facility] [employer] Electronically authenticated by: [id number] Y Date: 06/04/2025 21:22
== END 2025-06-04 18:55 | disposition home or self-care (01) ==
LOC: US 18:54
PROVIDERS: PCP Family Medicine; Visit Provider Obstetrics & Gynecology
DX: Z36.89 Encounter for other specified antenatal screening (principal); Z3A.19 19 weeks gestation of pregnancy
CPT/HCPCS: 76805; 76817

== ENCOUNTER 2025-06-12 19:00 | Outpatient (OUT) | payer BC, SELFPAY ==
--- OUTSIDE RECORDS SUMMARY | 2025-06-05 14:30 | XMS_ITS | Encounter Summary ---
Author Organization [facility] Address [address] [place] [address] Care Team Providers Care Women'S Apparel Salesperson Name Role Phone Mc Ray MD Primary Care Provider Reason for Visit * Reason Comments Routine Visit Encounter Details Date Type Department Care Team (Late st Contact Info) Description 06/05/2025 2:30 PM EDT Routine [facility] [address] [place] [address] Gabby Contreras PA [address] [place] [address] Second trimester ([facility]); 20 weeks gestation of ([facility]); Encounter for follow-up ultrasound of anatomy ([facility]) Social History Tobacco Use Types Packs/Day Years Used Date Smoking Tobacco: Never Alcohol Use Standard Drinks/Week Comments Yes 0 (1 standard drink = 0.6 oz pure alcohol) Alcohol: monthly or less. Caffeine: none Estimated Date of Delivery Comme nts Yes 10/22/2025 Based on Ultraso und Sex and Gender Information Value Date Recorded Sex Assigned at Not on file Legal Sex Female 8:15 PM EDT Gender Identity Not on file Sexual Orientation Not on file documented as of this encounter Last Filed Vital Signs Vital Sign Reading Time Taken Comments Blood Pressure 120/76 06/05/2025 2:37 PM EDT Pulse - - Temperature - - Respiratory Rate - - Oxygen Saturation - - Inhaled Oxygen Concentration - - Weight 104 kg (228 lb 8 oz) 06/05/2025 2:37 PM E DT Height - - Body Mass Index 32.79 05/29/2024 9:13 AM EDT documented in this encounter Progress Notes * DARÍO Bravo - 06/05/2025 2:30 PM EDT Reason for Appointment: Patient ID: Janet Stock is a 24 y.o. female who presents for Routine Visit Patient presents today for Return OB appointment. MEDICATIONS No current outpatient medications ALLERGIES No Known Allergies PROBLEMS Active Ambulatory Problems Diagnosis Date Noted No Active Ambulatory Problems Resolved Ambulatory Problems Diagnosis Date Noted No Resolved Ambulatory Problems No Additional Past Medical History HISTORY PAST MEDICAL HISTORY SOCIAL HISTORY No past medical history on file. Social History Tobacco Use Smoking status: Never Smokeless tobacco: Not on file Substance Use Topics Alcohol use: Yes Comment: Alcohol: monthly or less. Caffeine: none Drug use: Not on file FAMILY HISTORY Family History Problem Relation Name Age of Onset Other (COVID) Father No Known Problems Sister 2 sisters No Known Problems Brother 3 brothers SURGICAL HISTORY No past surgical history on file. REVIEW OF SYSTEMS Review of Systems: Review of Systems Constitutional: Negative. HENT: Negative. Eyes: Negative. Respiratory: Negative. Cardiovascular: Negative. Gastrointestinal: Negative. Genitourinary: Negative. Musculoskeletal: Negative. Skin: Negative. Neurological: Negative. All other systems reviewed and are negative. Hematological: Negative. Endocrine: Negative. Allergic/Immunologic: Negative. OBJECTIVE Objective: Physical Exam Constitutional: Appearance: Normal appearance. She is normal weight. HENT: Head: Normocephalic. Cardiovascular: Rate and Rhythm: Normal rate. Pulses: Normal pulses. Pulmonary: Effort: Pulmonary effort is normal. Breath sounds: Normal breath sounds. Abdominal: Palpations: Abdomen is soft. Musculoskeletal: General: Normal range of motion. Neurological: General: No focal deficit present. Mental Status: She is alert and oriented to person, place, and time. Psychiatric: Mood and Affect: Mood normal. Behavior: Behavior normal. Thought Content: Thought content normal. Judgment: Judgment normal. Vitals and nursing note reviewed. Vitals: Estimated body mass index is 32.79 kg/m?? as calculated from the following: Height as of 05/29/24: 5' 10 . Weight as of this encounter: 228 lb 8 oz. BP: 120/76 Patient's last menstrual period was 01/04/2025. ASSESSMENT & PLAN ICD-10-CM 1. Second trimester ([facility]) Z34.92 2. 20 weeks gestation of ([facility]) Z3A.20 Return OB: Patient presents today for a routine obstetrics appointment. Patient is currently 20w1d . Patient states she is doing well but has complaints of being tired due to current . Patient has verbalizes frequent movement. No orders of the defined types were placed in this encounter. Follow Up: Patient is to return to office in 4 week for routine OB appointment. Documented by DARÍO Bravo on behalf of: DARÍO Bravo documented in this encounter Plan of Treatment Upcoming Encounters Date Type Department Care Team (Late st Contact Info) Description 07/04/2025 2:50 PM EDT Routine [facility] [address] [phone] Alexsander Al DO [address] [place] [address] Scheduled Orders Name Type Priority Associated Diagnoses Orde r Schedule US OB limited 1+ fetuses Imaging Routine Encounter for follow-up ultrasound of anatomy ([facility]) Expected: 06/05/2025, Expires: 09/05/2025 documented as of this encounter Visit Diagnoses Diagnosis Second trimester ([facility]) state, incidental 20 weeks gestation of ([facility]) Encounter for follow-up ultrasound of anatomy ([facility]) documented in this encounter Care Teams Women'S Apparel Salesperson Relationship Specialty Start Date End Date Mc Ray MD [address] [place] [address] PCP - General Family Medicine 05/27/23 documented as of this encounter
--- NOTE | 2025-06-12 19:02 | US_ITS ---
The [address] [address] Patient Name: ALEJO OVERTON MRN: [id number] date: 2000 Sex: F Assigned Patient Location: US Current Patient Location: Accession/Order Number: [id number] Exam Date: 06/13/2025 09:05 Report Date: 06/13/2025 09:20 At the request of: JESSIE DAMON DO Procedure: US OB incomplete anatomy OB ultrasound. Reason for exam: Follow-up anatomy. COMPARISON: Ultrasound 05/27/2025. TECHNIQUE: Transabdominal imaging of the gravid uterus was obtained. FINDINGS: Limited OB ultrasound demonstrates all 4 extremities are visualized on today's study. The spine appears intact with limited visualization of the sacrum/coccyx. heart rate 143 bpm. US/US OB incomplete anatomy Impression: All 4 extremities were visualized. The majority of the spine was visualized and appears intact with limited visualization of the sacrum/coccyx. If this is of clinical concern, repeat ultrasound in one week is suggested. Impression dictated by: Nicola Sheldon Jr.OLuther 06/13/2025 9:20 AM Dictation Location: [facility] Electronically authenticated by: [id number] Y Date: 06/13/2025 09:20
--- OUTSIDE RECORDS SUMMARY | 2025-06-12 19:03 | XMS_ITS | Encounter Summary ---
Author Organization [facility] Address [address] [place] [address] Care Team Providers Care Recovery Engineer Name Role Phone Mc Ray MD Primary Care Provider Encounter Details Date Type Department Care Team (Late st Contact Info) Description 03/28/2025 Abstract [facility] [place] [id number] Alexsander Al DO [address], [place] [address] Social History Tobacco Use Types Packs/Day Years [...] on file documented as of this encounter Plan of Treatment Upcoming Encounters Date Type Department Care Team (Late st Contact Info) Description 07/04/2025 2:50 PM EDT Routine [facility] [address] [place] [phone] Alexsander Al DO [address], [place] [id number] documented as of this encounter Visit Diagnoses Not on filedocumented in this encounter Care Teams Recovery Engineer Relationship Specialty Start Date End Date Mc Ray MD [address] [facility] [place] [address] PCP - General Family Medicine 05/27/23 documented as of this encounter
--- OUTSIDE RECORDS SUMMARY | 2025-06-12 19:03 | XMS_ITS ---
Author Organization [facility] Source Produ ction (ClinicalSummary Clone) Address Unknown Care Team Providers Care Straightener Hand Name Role Phone Unavailable Primary Care Physician Unavailab le Results * [UNITY] CARRIER SCREEN Performed by: [employer] Component Value Range Date Sickle Cell Disease/Beta-Thalassemia/Hemo globinopathies carrier screen NEGATIVE 03/28/2025 06:14 am [facility] Alpha-Thalassemia carrier screen NEGATIVE 03/28/2025 06:14 am [facility] Cystic Fibrosis carrier screen NEGATIVE 03/28/2025 06:14 am [facility] Spinal Muscular Atrophy carrier screen NEGATIVE 2 SMN1 copies, SNP not present 03/28/2025 06:14 am [facility] For detailed report, see PDF See PDF 03/28/2025 06:14 am [facility] 03/28/2025 06:1 4 am [facility] Social History Observation Value Start Date End Date
--- OUTSIDE RECORDS SUMMARY | 2025-06-12 19:03 | XMS_ITS | Clinical Summary ---
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 [employer] Name Role Phone Cleveland Ray MD Primary Care Provider Allergies No known active allergies Medications No known medications Encounters Date Type Department Care Team Description 06/06/2025 [place] [address] Jessie Al, DO 06/05/2025 2:30 PM EDT [place] [address] Gabby Contreras PA Second trimester ([facility]); 20 weeks gestation of ([facility]); Encounter for follow-up ultrasound of anatomy ([facility]) 06/05/2025 Bamboo flowsheet [facility] [address] [place] [address] Gabby Contreras PA 06/04/2025 Clinisync Result Encounter NOMS External Department Unsolicited Jessie Al, DO 06/04/2025 Clinisync Result Encounter NOMS External Department Unsolicited Jessie Al, DO 05/21/2025 Clinisync Result Encounter NOMS External Department Unsolicited Jessie Al, DO 05/08/2025 9:10 AM EDT [place] [address] Jessie Al DO Second trimester ([facility]); 16 weeks gestation of ([facility]); Screening, , for anatomic survey ([facility]) 05/08/2025 Bamboo flowsheet [facility] [address] [place] [address] Jessie Al, 05/05/2025 Travel 04/09/2025 3:10 PM EDT Routine [facility] [address] [place] [address] Jessie Al DO First trimester ([facility]) (Primary Dx) 04/09/2025 Bamboo flowsheet [facility] [address] [place] [address] Jessie Al, 04/08/2025 Travel 04/05/2025 Telephone [facility] [address] [place] [address] Tanisha Saenz MA 03/28/2025 Abstract [facility] [address] [address] Jessie Al, 03/26/2025 Abstract [facility] [address] [place] [address] Jessie Al, 03/19/2025 Abstract [facility] [address] [place] [address] Jessie Al, 03/19/2025 Clinisync Result Encounter NOMS External Department Unsolicited Jessie Al DO from Last 3 Months Family History Medical History Relation Name Comments No Known Problems Brother 3 brothers COVID Father No Known Problems Sister 2 sisters Relation Name Status Comments Brother Alive Father Maternal Grandfather Alive Maternal Grandmother Alive Mother Alive Paternal Grandfather Paternal Grandmother Sister Alive Social History Tobacco Use Types Packs/Day Years Used Date Smoking Tobacco: Never Tobacco Cessation:Counseling Given: Not Answered Alcohol Use Standard Drinks/Week Comments Yes 0 (1 standard drink = 0.6 oz pure alcohol) Alcohol: monthly or less. Caffeine: none Estimated Date of Delivery Comme nts Yes 10/22/2025 Based on Ultraso und Sex and Gender Information Value Date Recorded Sex Assigned at Not on file Legal Sex Female 8:15 PM EDT Gender Identity Not on file Sexual Orientation Not on file Last Filed Vital Signs Vital Sign Reading Time Taken Comments Blood Pressure 120/76 06/05/2025 2:37 PM EDT Pulse - - Temperature - - Respiratory Rate - - Oxygen Saturation - - Inhaled Oxygen Concentration - - Weight 104 kg (228 lb 8 oz) 06/05/2025 2:37 PM E DT Height 177.8 cm (5' 10 ) 05/29/2024 9:13 AM EDT Body Mass Index 32.79 05/29/2024 9:13 AM EDT Plan of Treatment Upcoming Encounters Date Type Department Care Team (Late st Contact Info) Description 07/04/2025 2:50 PM EDT Routine [facility] [address] [phone] Jessie Al DO [address] [place] [address] Procedures Procedure Name Priority Date/Time Associated Diagnosis Comments OB CERVICAL LENGTH 06/04/2025 9:22 PM EDT US OB ANATOMY 06/04/2025 9:22 PM EDT AFP, SERUM, OPEN SPINA BIFIDA Routine 05/21/2025 8:39 AM EDT POCT URINALYSIS DIPSTICK Routine 05/08/2025 9:41 AM EDT Second trimester ([facility]) 16 weeks gestation of ([facility]) POCT URINALYSIS DIPSTICK Routine 04/09/2025 3:47 PM EDT First trimester ([facility]) [facility] DRUG SCREEN RAPID (URINE) Routine 03/19/2025 9:00 AM EDT HBSAG SCREEN Routine 03/19/2025 8:26 AM EDT RAPID PLASMA REAGIN, QUANT Routine 03/19/2025 8:26 AM EDT HCV ANTIBODY RFX TO QUANT PCR Routine 03/19/2025 8:26 AM EDT ALL RUBELLA IGG AB Routine 03/19/2025 8: 26 AM EDT HIV AB/P24 AG WITH REFLEX Routine 03/19/2025 8:26 AM EDT ALL TYPE AND SCREEN Routine 03/19/2025 8 :26 AM EDT MLR HEMOGLOBIN A1C Routine 03/19/2025 8: 26 AM EDT ALL CBC WITH AUTO DIFF Routine 03/19/2025 8:26 AM EDT BOX TEST Routine 03/19/2025 8:26 AM EDT from Last 3 Months Results * US OB CERVICAL LENGTH (06/04/2025 9:22 PM EDT) Anatomical Region Laterality Modality Other 06/04/2025 9:22 PM EDT Narrative 06/04/2025 9:25 [place] [address] Ultrasound Report Signed Patient: ALEJO OVERTON MR#: [id number] : 2000 Acct:[id number] Age/Sex: 24 / F ADM Date: 06/04/25 Loc: US Attending Dr: Jessie Al D.O. Ordering Physician: Jessie Al D.O. Date of Service: 06/04/25 Procedure(s): US OB cervical length Accession Number(s): [id number] cc: Jessie Al D.O.; [place] The [place] [id number] Patient Name: ALEJO OVERTON MRN: [id number] date: 2000 Sex: F Assigned Patient Location: US Current Patient Location: US Accession/Order Number: [id number] Exam Date: 06/04/2025 21:13 Report Date: 06/04/2025 21:22 At the request of: JESSIE AL DO Procedure: US OB cervical length OB ultrasound, cervical length ultrasound Reason for exam: Anatomy survey. COMPARISON: None. TECHNIQUE: Transabdominal imaging of the gravid uterus was obtained. FINDINGS: Single live intrauterine measuring 19 weeks 6 days by anatomic measurements, appropriate growth for dating. Estimated weight is 324 g which is the 44th percentile. heart rate 1 43 bpm. EMILY was not calculated. Cervical length measures 4.11 cm without evidence of funneling. Placenta appears anterior in location without focal abnormality. Placenta is approximately 2.1 cm from the internal os. Anatomy survey demonstrates no anomalies noted. Three-vessel cord is present. No ventriculomegaly. Nasal bone is present. Suboptimal visualization of the spine and extremities. Four-chamber heart is noted. Outflow tracts appear unremarkable. US/US OB cervical length IMPRESSION: Incomplete anatomical survey with suboptimal visualization of the extremities and spine. Completion of the anatomic survey in 1-2 weeks is suggested. Normal cervical length without evidence of funneling. Impression dictated by: Juan Francisco Abel Jr., D.O. 06/04/2025 9:22 PM Dictation Location: [place] [address] Electronically authenticated by: [id number] Y Date: 06/04/2025 21:22 Dictated By: Juan Francisco Abel M.D. Signed By: 06/04/252124 DD/ 21 TD/TT: Beading Machine Operator: Procedure Note Radiology, Radiologist, - 06/04/[address] [address] Ultrasound Report Signed Patient: ALEJO OVERTON MMR#: [id number] : 2000Acct:[id number] Age/Sex: 24 / FADM Date: 06/04/25 Loc: US Attending Dr: Jessie Al D.O. Ordering Physician: Jessie Al D.O. Date of Service: 06/04/25 Procedure(s): US OB cervical length Accession Number(s): [id number] cc: Jessie Al D.O.; [place] [id number] Patient Name: ALEJO OVERTON MRN: [id number] date: 2000 Sex: F Assigned Patient Location: US Current Patient Location: US Accession/Order Number: [id number] Exam Date: 06/04/2025 21:13 Report Date: 06/04/2025 21:22 At the request of: JESSIE AL DO Procedure: US OB cervical length OB ultrasound, cervical length ultrasound Reason for exam: Anatomy survey. COMPARISON: None. TECHNIQUE: Transabdominal imaging of the gravid uterus was obtained. FINDINGS: Single live intrauterine measuring 19 weeks 6 days by anatomic measurements, appropriate growth for dating. Estimated fetalweight is 324 g which is the 44th percentile. heart rate 1 43 bpm. AFIwas not calculated. Cervical length measures 4.11 cm without evidence of funneling. Placenta appears anterior in location without focalabnormality. Placenta is approximately 2.1 cm from the internal os. Anatomy survey demonstrates no anomalies noted. Three-vessel cordis present. No ventriculomegaly. Nasal bone is present. Suboptimal visualization of the spine and extremities. Four-chamber heart is noted. Outflow tracts appear unremarkable. US/US OB cervical length IMPRESSION: Incomplete anatomical survey with suboptimal visualization ofthe extremities and spine. Completion of the anatomic survey in 1-2 weeks is suggested. Normal cervical length without evidence of funneling. Impression dictated by: Juan Francisco Abel Jr., D.O. 06/04/2025 9:22 PM Dictation Location: [place] [address] Electronically authenticated by: [id number] Y Date: 1:22 Dictated By: Juan Francisco Abel M.D. Signed By:06/04/252124 DD/ 21 TD/TT: Beading Machine Operator: us Jessie Al DO CLINISYNC IMAGING Final Result * US OB ANATOMY (06/04/2025 9:22 PM EDT) Anatomical Region Laterality Modality Other 06/04/2025 9:22 PM EDT Narrative 06/04/2025 9:25 [place] [address] Ultrasound Report Signed Patient: ALEJO OVERTON MR#: [id number] : 2000 Acct:[id number] Age/Sex: 24 / F ADM Date: 06/04/25 Loc: US Attending Dr: Jessie Al D.O. Ordering Physician: Jessie Al D.O. Date of Service: 06/04/25 Procedure(s): US OB anatomy Accession Number(s): [id number] cc: Jessie Al D.O.; [place] R[place] [address] [address] Patient Name: ALEJO OVERTON MRN: [id number] date: 2000 Sex: F Assigned Patient Location: US Current Patient Location: US Accession/Order Number: [id number] Exam Date: 06/04/2025 21:13 Report Date: 06/04/2025 21:22 At the request of: JESSIE AL DO Procedure: US OB cervical length OB ultrasound, cervical length ultrasound Reason for exam: Anatomy survey. COMPARISON: None. TECHNIQUE: Transabdominal imaging of the gravid uterus was obtained. FINDINGS: Single live intrauterine measuring 19 weeks 6 days by anatomic measurements, appropriate growth for dating. Estimated weight is 324 g which is the 44th percentile. heart rate 1 43 bpm. EMILY was not calculated. Cervical length measures 4.11 cm without evidence of funneling. Placenta appears anterior in location without focal abnormality. Placenta is approximately 2.1 cm from the internal os. Anatomy survey demonstrates no anomalies noted. Three-vessel cord is present. No ventriculomegaly. Nasal bone is present. Suboptimal visualization of the spine and extremities. Four-chamber heart is noted. Outflow tracts appear unremarkable. US/US OB anatomy IMPRESSION: Incomplete anatomical survey with suboptimal visualization of the extremities and spine. Completion of the anatomic survey in 1-2 weeks is suggested. Normal cervical length without evidence of funneling. Impression dictated by: Juan Francisco Abel Jr., D.O. 06/04/2025 9:22 PM Dictation Location: [place] [address] Electronically authenticated by: [id number] Y Date: 06/04/2025 21:22 Dictated By: Juan Francisco Abel M.D. Signed By: 06/04/252124 DD/ 21 TD/TT: Beading Machine Operator: Procedure Note Radiology, Radiologist, MD - 06/04/2025 [place] [address] Ultrasound Report Signed Patient: ALEJO OVERTON MMR#: [id number] : 2000Acct:[id number] Age/Sex: 24 / FADM Date: 06/04/25 Loc: US Attending Dr: Jessie Al D.O. Ordering Physician: Jessie Al D.O. Date of Service: 06/04/25 Procedure(s): US OB anatomy Accession Number(s): [id number] cc: Jessie Al D.O.; [place] [id number] Patient Name: ALEJO OVERTON MRN: [id number] date: 2000 Sex: F Assigned Patient Location: US Current Patient Location: US Accession/Order Number: [id number] Exam Date: 06/04/2025 21:13 Report Date: 06/04/2025 21:22 At the request of: JESSIE LA DO Procedure: US OB cervical length OB ultrasound, cervical length ultrasound Reason for exam: Anatomy survey. COMPARISON: None. TECHNIQUE: Transabdominal imaging of the gravid uterus was obtained. FINDINGS: Single live intrauterine measuring 19 weeks 6 days by anatomic measurements, appropriate growth for dating. Estimated fetalweight is 324 g which is the 44th percentile. heart rate 1 43 bpm. AFIwas not calculated. Cervical length measures 4.11 cm without evidence of funneling. Placenta appears anterior in location without focalabnormality. Placenta is approximately 2.1 cm from the internal os. Anatomy survey demonstrates no anomalies noted. Three-vessel cordis present. No ventriculomegaly. Nasal bone is present. Suboptimal visualization of the spine and extremities. Four-chamber heart is noted. Outflow tracts appear unremarkable. US/US OB anatomy IMPRESSION: Incomplete anatomical survey with suboptimal visualization ofthe extremities and spine. Completion of the anatomic survey in 1-2 weeks is suggested. Normal cervical length without evidence of funneling. Impression dictated by: Juan Francisco Abel Jr., Timoteo 06/04/2025 9:22 PM Dictation Location: [employer] Electronically authenticated by: [id number] Y Date: 1:22 Dictated By: Juan Francisco Abel M.D. Signed By:06/04/252124 DD/ 21 TD/TT: Beading Machine Operator: [facility] DO CLINISYNC IMAGING Final Result * AFP, SERUM, OPEN SPINA BIFIDA (05/21/2025 8:39 AM EDT) RESULTS Report . [facility] TEST RESULTS: *Screen Negative* . [facility] GEST. AGE ON COLLECTION DATE 18.0 . weeks [facility] GESTAT. AGE BASED ON Ultrasound . [facility] Comment: 16.1 on 05/08/2025 Recalculations are not recommended when gestational dating by LMP and ultrasound are within 10 days. [age] [facility] RACE . [facility] WEIGHT 223 . lbs [facility] INSULIN DEP DIABETES No . [facility] MULTIPLE GESTATION No . [facility] AFP VALUE 24.9 . ng/mL [facility] AFP MOM 0.73 . TB [place] [address] . [facility] INTERPRETATION Comment . [facility] Comment: Interpretation: Screen Negative This result is screen negative for OSB. The AFP MoM calculated is based on the gestational age provided. MS-AFP can identify up to 80% of open neural tube defects. Closed neural tube defects and some open defects may not be detected by this test. This test does not screen for Down Syndrome or Trisomy 18. If screening for Down Syndrome or Trisomy 18 is desired, contact [facility] to discuss available options. The [employer] recommends amniocentesis be offered to women age 35 and older. COMMENT: Comment . [facility] Comment: Blanca Martinez, Ph.D., [facility] Director References: Available Upon Request. Multiples Of Median Cutoffs For AFP Elevations Carty 2.5 Black 2.8 IDD 2.0 Twins 4.5 Abbreviation Definitions IDD - Insulin Dep Diabetes OSBR - Open Spina Bifida Risk For further inquiries contact [email or web address] [facility] at [phone]. This test was developed and its performance characteristics determined by [employer]. It has not been cleared or approved by the Food and Drug Administration. Performed at: [facility] [place], [place] [id number] Damaged Freight Inspector: Renae Bautista [facility], Phone: [phone] 05/21/2025 8:39 AM EDT 05/21/2025 8:40 AM EDT Narrative JIM - 05/23/2025 2:10 AM EDT N N ULTRASOUND [id number] 1 16 N 1 Y 223 N N N N N White/ us Jessie Servando DO LAB BLOOD ORDERABLES Final Resul t [facility] * (ABNORMAL) POCT urinalysis dipstick manually resulted (05/08/2025 9:41 AM EDT) Only the most recent of2 resultswithin the time period is included. Color, UA Yellow Clarity, UA Clear Glucose, UA Negative Negative - 2000(110) ++++ mg/dL Bilirubin, UA Negative Negative - 4(70) +++ mg/dL Ketones, UA Positive Negative - 160(16) ++++ mg/dL Spec Grav, UA 1.025 1 - 1.03 Blood, UA Negative Negative - 50 Ming/mcL pH, UA 6.5 5 - 9 Protein, UA Negative Negative - 1999(20) ++++ mg/dL Urobilinogen, UA 1.0 0.2 - 12 mg/dL Leukocytes, UA Trace Negative - 500+++ Manpreet/mcL Nitrite, UA Negative Negative - Positive Urine 05/08/2025 9:41 AM EDT Jessie Servando DO POINT OF CARE TEST ENTER/EDIT OR DERABLES Final Result * [facility] DRUG SCREEN RAPID (URINE) (03/19/2025 9:00 AM EDT) Pathologist [facility] CANNABINOID SCREEN URINE NEGATIVE NEGATIVE TBH PHENCYCLIDINE SCREEN URINE NEGATIVE NEGATIVE TBH COCAINE SCREEN URINE NEGATIVE NEGATIVE TBH METHAMPHETAMINES SCREEN URINE NEGATIVE NEGATIVE TBH OPIATE SCREEN URINE NEGATIVE NEGATIVE TBH AMPHETAMINE SCREEN URINE NEGATIVE NEGATIVE TBH BENZODIAZEPINES SCREEN URINE NEGATIVE NEGATIVE TBH TRICYCLIC ANTIDEPRESSANT URINE NEGATIVE NEGATIVE TBH METHADONE SCREEN URINE NEGATIVE NEGATIVE TBH BARBITURATES SCREEN URINE NEGATIVE NEGATIVE TBH OXYCODONE SCREEN URINE NEGATIVE NEGATIVE TBH BUPRENORPHINE SCREEN URINE NEGATIVE NEGATIVE TBH Comment: DRUG CLASS TEST SYSTEM CUT-OFF CONCENTRATIONS ARE FOLLOWS: AMP (Amphetamine): 500 ng/mL BAR (Barbiturates): 200 ng/mL BZO (Benzodiazepines): 150 ng/mL BUP (Buprenorphine): 10 ng/mL SUZI (Cocaine): 150 ng/mL mAMP (Methamphetamine): 500 ng/mL MTD (Methadone): 200 ng/mL OPI (Opiates): 100 ng/mL OXY (Oxycodone): 100 ng/mL PCP (Phencyclidine): 25 ng/mL THC (Cannabinoids): 50 ng/mL TCA (Trycyclic Antidepressants): 300 ng/mL 03/19/2025 9:00 AM EDT 03/19/2025 9:59 AM EDT Narrative CLINISYNC - 03/19/2025 10:20 AM EDT Jessie Servando DO CLINISYNC Final Result CLINISYNC [facility] * BOX TEST (03/19/2025 8:26 AM EDT) Pathologist [facility] BOX TEST SENT OUT [facility] [address] [facility] [address] 03/19/25 [facility] 03/19/2025 8:26 AM EDT 03/19/2025 8:30 AM EDT Narrative CLINISYNC - 03/19/2025 8:42 AM EDT UNITY BOX us Jessie Servando DO LAB BLOOD ORDERABLES Final Resul t Performing Organization Address [facility] de Phone Number [facility] * HBSAG SCREEN (03/19/2025 8:26 AM EDT) Pathologist [facility] HBSAG SCREEN Negative Negative [facility] Comment: Performed at: [address] [id number] Damaged Freight Inspector: Jason Barrera PhD, Phone: [phone] 03/19/2025 8:26 AM EDT 03/19/2025 8:30 AM EDT Narrative CLINISYNC - 03/20/2025 12:08 PM EDT us Jessie Servando DO LAB BLOOD ORDERABLES Final Resul t Performing Organization Address [facility] de Phone Number [facility] * RAPID PLASMA REAGIN, QUANT (03/19/2025 8:26 AM EDT) [facility] RAPID PLASMA REAGIN, QUANT Non Reactive NonRea<1: 1 titer [facility] Comment: Please Note: This test does not meet current guidelines for screening and diagnosis of syphilis. This test is intended for following treatment response in patients being treated for syphilis infection. To screen for syphilis infection, a reflex cascade that includes both RPR and a treponema-specific assay should be utilized, such as Treponema pallidum (Syphilis) Screening [place] (884251) or Rapid Plasma Reagin (RPR) Test With Reflex to Quantitative RPR and Confirmatory Treponema pallidum Antibodies (167584). Performed at: [address] [id number] Damaged Freight Inspector: Jason Barrera PhD, Phone: [phone] 03/19/2025 8:26 AM EDT 03/19/2025 8:30 AM EDT Narrative CLINISYNC - 03/20/2025 12:08 PM EDT us Jessie Servando DO LAB BLOOD ORDERABLES Final Resul t Performing Organization Address [facility] Co de Phone Number [facility] * HIV AB/P24 AG WITH REFLEX (03/19/2025 8:26 AM EDT) Pathologist [facility] HIV AB/P24 AG SCREEN Non Reactive Non Reactive [facility] Comment: HIV-1/HIV-2 antibodies and HIV-1 p24 antigen were NOT detected. There is no laboratory evidence of HIV infection. HIV Negative Performed at: [address] [id number] Damaged Freight Inspector: Jason Barrera PhD, Phone: [phone] 03/19/2025 8:26 AM EDT 03/19/2025 8:30 AM EDT Narrative CLINISYNC - 03/20/2025 5:07 AM EDT us Katangoo DO LAB BLOOD ORDERABLES Final Resul t Performing Organization Address [facility] de Phone Number [facility] * HCV ANTIBODY RFX TO QUANT PCR (03/19/2025 8:26 AM EDT) Pathologist [facility] HCV AB Non Reactive Non Reactive [facility] INTERPRETATION: Comment . [facility] Comment: Not infected with HCV unless early or acute infection is suspected (which may be delayed in an immunocompromised individual), or other evidence exists to indicate HCV infection. Performed at: [address] [id number] Damaged Freight Inspector: Jason Barrera PhD, Phone: [phone] 03/19/2025 8:26 AM EDT 03/19/2025 8:30 AM EDT Narrative CLINISYNC - 03/20/2025 7:07 AM EDT us Jessie Servando DO LAB BLOOD ORDERABLES Final Resul t Performing Organization Address [facility]/ZIP Co de Phone Number [facility] * MLR HEMOGLOBIN A1C (03/19/2025 8:26 AM EDT) Pathologist [facility] GLYCOHEMOGLOBIN A1C 5.6 4.5 - 6.2 % [facility] Comment: ADA RECOMMENDED LIMIT 4.0 - 6.0 ADA THERAPEUTIC TARGET < 7.0 ACTION SUGGESTED > 7.0 ESTIMATED AVERAGE GLUCOSE 114 mg/dL TB 03/19/2025 8:26 AM EDT 03/19/2025 8:30 AM EDT Narrative CLINISYNC - 03/19/2025 9:09 AM EDT [facility] [place] [facility]ISYNC Final Result Performing Organization Address [facility] Co de Phone Number [facility] * ALL TYPE AND SCREEN (03/19/2025 8:26 AM EDT) Pathologist [facility] BLOOD TYPE O Positive [facility] ANTIBODY SCREEN NEGATIVE TB 03/19/2025 8:26 AM EDT 03/19/2025 8:30 AM EDT Narrative CLINISYNC - 03/19/2025 9:44 AM EDT [facility] , [facility] [place] CLINISYME Final Result Performing Organization Address [facility] Co de Phone Number [facility] * ALL RUBELLA IGG AB (03/19/2025 8:26 AM EDT) Pathologist [facility] RUBELLA ANTIBODIES, IGG 1.66 Immune >0.99 index [facility] Comment: Non-immune <0.90 Equivocal 0.90 - 0.99 Immune >0.99 Performed at: [address] [id number] Damaged Freight Inspector: Jason Barrera PhD, Phone: [phone] 03/19/2025 8:26 AM EDT 03/19/2025 8:30 AM EDT Narrative CLINISYNC - 03/20/2025 7:07 AM EDT us Jessie Servando DO CLINISYNC Final Result CLINISYNC TB * (ABNORMAL) ALL CBC WITH AUTO DIFF (03/19/2025 8:26 AM EDT) TBH WBC 8.6 4.0 - 11.0 10 3/uL TBH TBH RBC 4.50 4.20 - 5.40 10 6/uL TBH TBH HGB 12.5 12.0 - 16.0 g/dL TBH TBH HCT 37.5 36.0 - 48.0 % TBH TBH MCV 83.3 81.0 - 99.0 fL TBH TBH MCH 27.8 26.7 - 34.0 pg TBH TBH MCHC 33.3 29.9 - 35.2 g/dL TBH TBH RDW 12.8 11.0 - 15.0 % TBH TBH PLT 213 150 - 450 10 3/uL TBH TBH MPV 9.6 9.5 - 13.5 fL TBH NEUTROPHILS PERCENT AUTO 68.4 43.0 - 75.0 % TBH LYMPHOCYTES PERCENT AUTO 22.1 20.5 - 60.0 % TBH MONOCYTES PERCENT AUTO 8.1 1.7 - 12.0 % TBH TBH EO % 0.8(L) 0.9 - 7.0 % TBH BASOPHILS PERCENT AUTO 0.2 0.2 - 2.0 % TBH IMMATURE GRANULOCYTES PCT AUTO 0.4 0.0 - 0.5 % TBH NEUTROPHILS ABSOLUTE AUTO 5.9 1.4 - 6.5 10 3/uL TBH LYMPHOCYTES ABSOLUTE AUTO 1.9 1.2 - 3.8 10 3/uL TBH MONOCYTES ABSOLUTE AUTO 0.7 0.3 - 0.8 10 3/uL TBH TBH EO # 0.1 0.0 - 0.7 10 3/uL TBH BASOPHILS ABSOLUTE AUTO 0.0 0.0 - 0.1 10 3/uL TBH IMMATURE GRANULOCYTES ABS AUTO 0.03 0.00 - 0.03 10 3/uL [facility] 03/19/2025 8:26 AM EDT 03/19/2025 8:30 AM EDT Narrative CLINISYNC - 03/19/2025 8:49 AM EDT Jessie Elizondozio DO CLINISYNC Final Result CLINISYNC [facility] from Last 3 Months Insurance BS Care Teams 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
--- OUTSIDE RECORDS SUMMARY | 2025-06-12 19:03 | XMS_ITS | Encounter Summary ---
Author Organization [facility] Address [address] [place] [address] Care Team Providers Care Director Check Name Role Phone Mc Ray MD Primary Care Provider [phone] Encounter Details Date Type Department Care Team (Late st Contact Info) Description 03/19/2025 Abstract [facility] [place] [phone] Alexsander Al DO [address], [place] [address] Social History Tobacco Use Types Packs/Day Years [...] EDT Routine ALEX SHIELDS [address] [place] [phone] Alexsander Al DO [address], [place] [phone] documented as of this encounter Visit Diagnoses Not on filedocumented in this encounter Care Teams Director Check Relationship Specialty Start Date End Date Mc Ray MD [address] [facility] [place] [address] PCP - General Family Medicine 05/27/23 documented as of this encounter
--- OUTSIDE RECORDS SUMMARY | 2025-06-12 19:03 | XMS_ITS | Encounter Summary ---
Author Organization [facility] Address [address] [place] [address] Care Team Providers Care Natural Fabricator Name Role Phone Cleveland Ray MD Primary Care Provider Encounter Details Date Type Department Care Team (Late st Contact Info) Description 06/04/2025 Clinisync Result Encounter NOMS External Department Unsolicited Jessie Al DO [address], [facility]11 Social History Tobacco Use Types Packs/Day Years [...] PM EDT Routine [facility] [address] [place] [phone] Jessie Al DO [address] [place] [address] documented as of this encounter Procedures Procedure Name Priority Date/Time Associated Diagnosis Comments US OB CERVICAL LENGTH 06/04/2025 9:22 PM EDT documented in this encounter Results * US OB CERVICAL LENGTH (06/04/2025 9:22 PM EDT) Anatomical Region Laterality Modality Other 06/04/2025 9:22 PM EDT Narrative 06/04/2025 9:25 [place] [address] Ultrasound Report Signed Patient: ALEJO STOCK MR#: [id number] : 2000 Acct:[id number] Age/Sex: 24 / F ADM Date: 06/04/25 Loc: US Attending Dr: Jessie Al D.O. Ordering Physician: Jessie Al D.O. Date of Service: 06/04/25 Procedure(s): US OB cervical length Accession Number(s): [id number] cc: Jessie Al D.O.; [place] [id number] Patient Name: ALEJO STOCK MRN: [id number] date: 2000 Sex: F Assigned Patient Location: US Current Patient Location: US Accession/Order Number: [id number] Exam Date: 06/04/2025 21:13 Report Date: 06/04/2025 [...] Jr., D.O. 06/04/2025 9:22 PM Dictation Location: [facility] Electronically authenticated by: [id number] Y Date: 06/04/2025 21:22 Dictated By: Juan Francisco Abel M.D. Signed By: 06/04/252124 DD/ 21 TD/TT: Senior Sql Dba: Procedure Note Radiology, Radiologist, MD - 06/04/2025 [place] [address] Ultrasound Report Signed Patient: ALEJO STOCK MMR#: [id number] : 2000Acct:[id number] Age/Sex: 24 / FADM Date: 06/04/25 Loc: US Attending Dr: Jessie Al D.O. Ordering Physician: Jessie Al D.O. Date of Service: 06/04/25 Procedure(s): US OB cervical length Accession Number(s): [id number] cc: Jessie Al D.O.; [place] [id number] Patient Name: ALEJO STOCK MRN: [id number] date: 2000 Sex: F Assigned Patient Location: US Current Patient Location: US Accession/Order Number: [id number] Exam Date: 06/04/2025 21:13 Report Date: 06/04/2025 [...] Jr., D.O. 06/04/2025 9:22 PM Dictation [facility] Electronically authenticated by: [id number] Y Date: 1:22 Dictated By: Juan Francisco Abel M.D. Signed By:06/04/252124 DD/ 21 TD/TT: Senior Sql Dba: us Jessie Servando DO [facility] Final Result documented in this encounter Visit Diagnoses Not on filedocumented in this encounter Care Teams Natural Fabricator Relationship Specialty Start Date End Date Cleveland Ray MD [address] [place] [address] PCP - General Family Medicine 05/27/23 documented as of this encounter
--- OUTSIDE RECORDS SUMMARY | 2025-06-12 19:03 | XMS_ITS | Encounter Summary ---
Author Organization [facility] Address [address] [place] [address] Care Team Providers Care Technology Recruiter Name Role Phone Mc Ray MD Primary Care Provider Encounter Details Date Type Department Care Team (Late st Contact Info) Description 07/13/2024 Orders Only ALEX [facility]EL[facility] [address] [facility] [place] [address] Elise Jain LPN [address] [facility] [place] [address] Social History Tobacco Use Types Packs/Day Years Used Date Smoking Tobacco: Never Alcohol Use Standard Drinks/Week Comments Yes 0 (1 standard drink = 0.6 oz pure alcohol) Alcohol: monthly or less. Caffeine: none Comments No Sex and Gender Information Value Date Recorded Sex Assigned at Not on file Legal Sex Female 8:15 PM EDT Gender Identity Not on file Sexual Orientation Not on file documented as of this encounter Plan of Treatment Upcoming Encounters Date Type Department Care Team (Late st Contact Info) Description 07/04/2025 2:50 PM EDT Routine [facility] [address] [facility] [place] [address] Alexsander Al DO [address] [facility] [address] [place], [facility]11 documented as of this encounter Procedures Procedure Name Priority Date/Time Associated Diagnosis Comments PAP SMEAR Routine 07/03/2024 12:00 AM EDT documented in this encounter Results * Pap Smear (07/03/2024 12:00 AM EDT) Swab Cervical swab / Unknown us Servando Nurse [facility] B[facility] Ob LAB CYTOLOGY ORDERABLES Final Result EXTERNAL LAB documented in this encounter Visit Diagnoses Not on filedocumented in this encounter Care Teams Technology Recruiter Relationship Specialty Start Date End Date Mc Ray MD [address] [place] [address] PCP - General Family Medicine 05/27/23 documented as of this encounter
--- OUTSIDE RECORDS SUMMARY | 2025-06-12 19:03 | XMS_ITS | Encounter Summary ---
Author Organization [facility] Address [address] [place] [address] Care Team Providers Care Finished Cloth Checker Name Role Phone Mc Rya MD Primary Care Provider [phone] Encounter Details Date Type Department Care Team (Late st Contact Info) Description 06/06/2025 Telephone [facility] [address] [place] [address] Alexsander Al DO [address] [place], [facility]11 Social History Tobacco Use Types Packs/Day Years [...] on file documented as of this encounter Miscellaneous Notes * Telephone Encounter - Elise Jain LPN - 06/06/2025 8:47 AM EDT Patient was called to make aware of ultrasound results and that this will need to be repeated. Patient states that she was advised of the results and scheduled yesterday for next week. Patient did state she was given her MSAFP order yesterday but she did have this completed. Patient was advised that she can get rid of that order as it ws completed and come in for her ultrasound as scheduled. documented in this encounter Plan of Treatment Upcoming Encounters Date Type Department Care Team (Late st Contact Info) Description 07/04/2025 2:50 PM EDT Routine [facility] [address] [facility] [place] [phone] Alexsander Al DO [address] [facility] [place] [address] documented as of this encounter Visit Diagnoses Diagnosis Encounter for follow-up ultrasound of anatomy ([facility]) documented in this encounter Care Teams Finished Cloth Checker Relationship Specialty Start Date End Date Mc Ray MD [address] [place] [address] PCP - General Family Medicine 05/27/23 documented as of this encounter
--- OUTSIDE RECORDS SUMMARY | 2025-06-12 19:03 | XMS_ITS | Encounter Summary ---
Author Organization [facility] Address [address] [place] [address] Care Team Providers Care Sole Stapler Welt Name Role Phone Cleveland Ray MD Primary Care Provider [phone] Encounter Details Date Type Department Care Team (Late st Contact Info) Description 06/04/2025 Clinisync Result Encounter NOMS External Department Unsolicited Jessie Al DO [address], [facility]11 Social History Tobacco Use Types Packs/Day Years [...] Routine [facility] [address] [place] [phone] Jessie Al DO [address] [place] [address] documented as of this encounter Procedures Procedure Name Priority Date/Time Associated Diagnosis Comments US OB ANATOMY 06/04/2025 9:22 PM EDT documented in this encounter Results * US OB ANATOMY (06/04/2025 9:22 PM EDT) Anatomical Region Laterality Modality Other 06/04/2025 9:22 PM EDT Narrative 06/04/2025 9:25 [place] [address] Ultrasound Report Signed Patient: ALEJO STOCK MR#: [id number] : 2000 Acct:[id number] Age/Sex: 24 / F ADM Date: 06/04/25 Loc: US Attending Dr: Jessie Al D.O. Ordering Physician: Jessie Al D.O. Date of Service: 06/04/25 Procedure(s): US OB anatomy Accession Number(s): [id number] cc: Jessie Al D.O.; [place] [id number] Patient Name: ALEJO STOCK MRN: [id number] date: 2000 Sex: F Assigned Patient Location: US Current Patient Location: US Accession/Order Number: [id number] Exam Date: 06/04/2025 21:13 Report Date: 06/04/2025 [...] Jr., D.O. 06/04/2025 9:22 PM Dictation Location: [place] [address] Electronically authenticated by: [id number] Y Date: 06/04/2025 21:22 Dictated By: Juan Francisco Abel M.D. Signed By: 06/04/252124 DD/ 21 TD/TT: Geographic Information Scientist: Procedure Note Radiology, Radiologist, - 06/04/2025 [place] [address] Ultrasound Report Signed Patient: ALEJO STOCK MMR#: [id number] : 2000Acct:[id number] Age/Sex: 24 / FADM Date: 06/04/25 Loc: US Attending Dr: Jessie Al D.O. Ordering Physician: Jessie Al D.O. Date of Service: 06/04/25 Procedure(s): US OB anatomy Accession Number(s): [id number] cc: Jessie Al D.O.; [place] [address] Patient Name: ALEJO STOCK MRN: [id number] date: 2000 Sex: F Assigned Patient Location: US Current Patient Location: US Accession/Order Number: [id number] Exam Date: 06/04/2025 21:13 Report Date: 06/04/2025 [...] Jr., D.O. 06/04/2025 9:22 PM Dictation [facility] Electronically authenticated by: [id number] Y Date: 1:22 Dictated By: Juan Francisco Abel M.D. Signed By:06/04/252124 DD/ 21 TD/TT: Geographic Information Scientist: us Jessie Servando DO [facility] Final Result documented in this encounter Visit Diagnoses Not on filedocumented in this encounter Care Teams Sole Stapler Welt Relationship Specialty Start Date End Date Cleveland Ray MD [address] [place] [address] PCP - General Family Medicine 05/27/23 documented as of this encounter
--- OUTSIDE RECORDS SUMMARY | 2025-06-12 19:03 | XMS_ITS | Encounter Summary ---
Author Organization [facility] Address [address] [place] [address] Care Team Providers Care Restaurant Operations Manager Name Role Phone Mc Ray MD Primary Care Provider Encounter Details Date Type Department Care Team (Late st Contact Info) Description 07/13/2024 Abstract ALEX [facility]IELDS [address] [place], [place] [address] [place] [phone] Alexsander Al DO [address], [place] [address] Social History Tobacco Use Types Packs/Day Years [...] 07/04/2025 2:50 PM EDT Routine ALEX SHIELDS [facility] [place] [phone] Alexsander Al DO [facility] [address], [facility]11 documented as of this encounter Visit Diagnoses Not on filedocumented in this encounter Care Teams Restaurant Operations Manager Relationship Specialty Start Date End Date Mc Ray MD [address] [facility] [address] PCP - General Family Medicine 05/27/23 documented as of this encounter
--- OUTSIDE RECORDS SUMMARY | 2025-06-12 19:03 | XMS_ITS ---
Author Organization [facility] Source Produ ction (ClinicalSummary Clone) Address Unknown Care Team Providers Care Literacy Consultant Name Role Phone Unavailable Primary Care Physician Unavailab le Results * [UNITY] ANEUPLOIDY NIPT Performed by: [employer] Component Value Range Date Fraction 4.1% 03/25/2025 06 :07 am UT Rh(D) NIPT RhD DETECTED 03/25/2025 06:0 7 am UTC Sex Chromosome Aneuploidy NOT DETECTED 06:07 am UTC Monosomy X LOW RISK <1 in 10,000 2024 06:07 am UTC Trisomy 13 LOW RISK <1 in 10,000 2024 06:07 am UTC Trisomy 18 LOW RISK <1 in 10,000 2024 06:07 am UTC Trisomy 21 LOW RISK <1 in 10,000 2024 06:07 am UTC Sex MALE 03/25/2025 06:0 7 am UTC Gestation CHEEMA 03/25/20 06:07 am UTC For detailed report, see PDF See PDF 03/25/2025 06:07 am UTC 03/25/2025 06:0 7 am UT Social History Observation Value Start Date End Date
--- OUTSIDE RECORDS SUMMARY | 2025-06-12 19:03 | XMS_ITS | Encounter Summary ---
Author Organization [facility] Address [address] [place] [address] Care Team Providers Care Process Safety Specialist Name Role Phone Mc Ray MD Primary Care Provider Encounter Details Date Type Department Care Team (Late st Contact Info) Description 06/05/2025 Bamboo flowsheet ALEX [facility]IELDS [address] [place] [address] Gabby Contreras PA [address] [facility] [address] [place], [place] [address] Social History Tobacco Use Types Packs/Day Years [...] 2:50 PM EDT Routine [facility] [address] [facility] [place] [address] Alexsander Al DO [address], [facility]11 documented as of this encounter Visit Diagnoses Not on filedocumented in this encounter Care Teams Process Safety Specialist Relationship Specialty Start Date End Date Mc Ray MD [address] [facility] [place] [address] PCP - General Family Medicine 05/27/23 documented as of this encounter
--- OUTSIDE RECORDS SUMMARY | 2025-06-12 19:03 | XMS_ITS | Encounter Summary ---
Author Organization [facility] Address [address] [place] [address] Care Team Providers Care Project Developer Name Role Phone Mc Ray MD Primary Care Provider Encounter Details Date Type Department Care Team (Late st Contact Info) Description 03/26/2025 Abstract ALEX SHIELDS [facility] [phone] Alexsander Al DO [address], [place] [address] Social History Tobacco Use Types Packs/Day Years [...] EDT Routine ALEX SHIELDS [address] [place] [phone] Alexsander Al DO [address], [place] [phone] documented as of this encounter Visit Diagnoses Not on filedocumented in this encounter Care Teams Project Developer Relationship Specialty Start Date End Date Mc Ray MD [address] [facility] [address] PCP - General Family Medicine 05/27/23 documented as of this encounter
== END 2025-06-12 19:01 | disposition home or self-care (01) ==
LOC: US 19:00
PROVIDERS: Visit Provider Obstetrics & Gynecology
DX: Z36.2 Encounter for other antenatal screening follow-up (principal)
CPT/HCPCS: 76815

== ENCOUNTER 2025-07-04 19:43 | Outpatient (REF) | payer BC, SELFPAY ==
--- OUTSIDE RECORDS SUMMARY | 2025-07-04 19:48 | XMS_ITS | CCD ---
Author Organization [facility] Care Team Providers Care Corporate Associate Attorney Name Role Phone Cleveland RAY Primary Care Physician Danika RUTLEDGE Unavailable Cleveland Ray MD Primary Care Provider Cleveland RAY Attending Unavailable Cleveland RAY Attending Unavailable Cleveland RAY Attending Unavailable Cleveland RAY Attending Unavailable Cleveland RAY Attending Unavailable JESSIE AL Attending Unavailable JESSIE AL Attending Unavailable JESSIE AL Attending Unavailable GABBY LINDER Attending Unavailable JESSIE AL Attending Unavailable Allergies Allergy Classification Reported Allergen(s) Allergy Type Date of Onset Reaction(s) Facility (1 source) Amoxicillin; Translations: [amoxicillin] Drug Allergy [facility] Repository (1 source) Clindamycin; Translations: [clindamycin] Drug Allergy [facility] Repository (1 source) Penicillins; Translations: [penicillins] Propensity to adverse reactions (disorder) [facility] Repository (1 source) No Known Medication Allergies; Translations: [No Known Medication Allergies] Propensity to adverse reactions (disorder) [facility] Repository Medications Current Medications Medication Drug Class(es) [...] route 1 (one) time 11/20/2024 Discontinued (Other) nitrofurantoin, macrocrystals 25 mg / nitrofurantoin, monohydrate 75 mg oral capsule (3 sources) Nitrofuran Antibacterial Start: 04-05-2025 End: 04-12-2025 take 1 capsule by mouth in the morning nitrofurantoin, macrocrystal-monohydrate, (Macrobid) 100 MG capsule Indications: Urinary tract infection with hematuria, site unspecified Take 1 capsule (100 mg) by mouth in the morning and 1 capsule (100 mg) before bedtime. Do all this for 7 days. 14 capsule 04/05/2025 04/12/2025 Active phentermine hydrochloride 37.5 mg oral tablet (14 sources) Sympathomimetic Amine Anorectic Start: 03-30-2024 take 1 tablet by mouth once daily Adipex-P 37.5 mg Tab 37.5 mg = 1 tab(s), Oral, Daily, # 30 tab(s), Refills(s) 0, Pharmacy: [facility] #[id number], 173, cm, 03/30/24 8:25:00 EDT, Height/Length Dosing, 91.2, kg, 03/30/24 8:25:00 EDT, Weight Dosing Start Date: 03/30/24 Status: Ordered Start: 03-06-2024 take 1 tablet by gregor th once daily Adipex-P 37.5 mg Tab 37.5 mg = 1 tab(s), Oral, Daily, # 30 tab(s), Refills(s) 0, Pharmacy: [facility] #[id number], 173, cm, 03/06/24 8:02:00 EDT, Height/Length Dosing, 91.7, kg, 03/06/24 8:02:00 EDT, Weight Dosing Start Date: 03/06/24 Status: Ordered Start: 02-03-2024 take 1 tablet by gregor th once daily Adipex-P 37.5 mg Tab 37.5 mg = 1 tab(s), Oral, Daily, # 30 tab(s), Refills(s) 0, Pharmacy: [facility] #[id number], 173, cm, 02/03/24 8:01:00 EDT, Height/Length Dosing, 93, kg, 02/03/24 8:01:00 EDT, Weight Dosing Start Date: 02/03/24 Status: Ordered Start: 01-22-2023 End: 03-09-2025 take 1 tablet by mouth once daily Adipex-P 37.5 mg Tab 37.5 mg = 1 tab(s), Oral, Daily, # 30 tab(s), Refills(s) 0, Pharmacy: [facility] #[id number], 173, cm, 01/06/24 8:32:00 EST, Height/Length Dosing, [...] 03-06-2024 Episodic Other and delivery including normal (8 sources) ; Translations: [Encounter for supervision of normal , unspecified, unspecified trimester] 03-09-2025 Episodic Other screening for suspected conditions (not mental disorders or infectious disease) (5 sources) Patient encounter status; Translations: [Unsatisfactory cytologic smear of cervix] 07-03-2024 Episodic Other upper respiratory infections (2 sources) Acute upper respiratory infection; Translations: [Acute upper respiratory infection, unspecified] Onset: 11-04-2023 Episodic Residual codes; unclassified (2 sources) Gestation period, 16 weeks; Translations: [16 weeks gestation of ] 05-08-2025 Episodic Residual codes; unclassified (2 sources) Gestation period, 20 weeks; Translations: [20 weeks gestation of ] 06-05-2025 Episodic Past or Other Problems Problem Classification Problem Date Documented Da te Episodic/Chronic Unclassified (12 sources) Patient encounter status 01-14-2023 Results Test Name Value Interpretation Reference Range Facility US OB INCOMPLETE ANATOMYon 0 06-13-2025 [place] [address] Ultrasound Report Signed Patient: ALEJO OVERTON MR#: [id number] : 2000 Acct:[id number] Age/Sex: 24 / F ADM Date: 06/12/25 Loc: US Attending Dr: Jessie Al D.O. Ordering Physician: Jessie Al D.O. Date of Service: 06/12/25 Procedure(s): US OB incomplete anatomy Accession Number(s): [id number] cc: Jessie Al D.O.; Physician,Non-Staff MGladis The [address] [address] Patient Name: ALEJO OVERTON MRN: [id number] date: 2000 Sex: F Assigned Patient Location: US Current Patient Location: Accession/Order Number: [id number] Exam Date: 06/13/2025 09:05 Report Date: 06/13/2025 09:20 At the request of: JESSIE AL DO Procedure: US OB incomplete anatomy OB ultrasound. Reason for exam: Follow-up anatomy. COMPARISON: Ultrasound 05/27/2025. TECHNIQUE: Transabdominal imaging of the gravid uterus was obtained. FINDINGS: Limited OB ultrasound demonstrates all 4 extremities are visualized on today's study. The spine appears intact with limited visualization of the sacrum/coccyx. heart rate 143 bpm. US/US OB incomplete anatomy Impression: All 4 extremities were visualized. The majority of the spine was visualized and appears intact with limited visualization of the sacrum/coccyx. If this is of clinical concern, repeat ultrasound in one week is suggested. Impression dictated by: Juan Francisco Abel Jr., D.O. 06/13/2025 9:20 AM Dictation Location: [place] [address] Electronically authenticated by: [id number] Y Date: 06/13/2025 09:20 Dictated By: Juan Francisco Abel M.D. Signed By: 06/13/25922 DD/ 9 TD/TT: Hat Measurer: [facility] Radiology Radiologkarsten quiroz MD - 06/13/2025 [place] [address] Ultrasound Report Signed Patient: ALEJO OVERTON MR#: [id number] : 2000 Acct:[id number] Age/Sex: 24 / F ADM Date: 06/12/25 Loc: US Attending Dr: Jessie Al D.O. Ordering Physician: Jessie Al D.O. Date of Service: 06/12/25 Procedure(s): US OB incomplete anatomy Accession Number(s): [id number] cc: Jessie Al D.O.; Physician,Non-Staff Barbara The [place] [id number] Patient Name: ALEJO OVERTON MRN: [facility]:[id number] date: 2000 Sex: F Assigned Patient Location: US Current Patient Location: Accession/Order Number: [id number] Exam Date: 06/13/2025 09:05 Report Date: 06/13/2025 09:20 At the request of: JESSIE AL DO Procedure: US OB incomplete anatomy OB ultrasound. Reason for exam: Follow-up anatomy. COMPARISON: Ultrasound 05/27/2025. TECHNIQUE: Transabdominal imaging of the gravid uterus was obtained. FINDINGS: Limited OB ultrasound demonstrates all 4 extremities are visualized on today's study. The spine appears intact with limited visualization of the sacrum/coccyx. heart rate 143 bpm. US/US OB incomplete anatomy Impression: All 4 extremities were visualized. The majority of the spine was visualized and appears intact with limited visualization of the sacrum/coccyx. If this is of clinical concern, repeat ultrasound in one week is suggested. Impression dictated by: Juan Francisco Abel Jr., D.O. 06/13/2025 9:20 AM Dictation Location: [place] [address] Electronically authenticated by: [id number] Y Date: 06/13/2025 09:20 Dictated By: Juan Francisco Abel M.D. Signed By: 06/13/25922 DD/ 9 TD/TT: Hat Measurer: [facility] Radiology Study observation (narrative) [facility] OB INCOMPLETE ANATOMYOrde red By: Radiologist Radiology on 06-13-2025 [facility] Work Phone: No Panel InformationOrdered By: Radiologist Radiology on 06-04-2025 [facility] Work Phone: No Panel Informationon 06-04 Radiology Study observation (narrative) [facility] US OB ANATOMYon 06-04-2025 [place] [address] Ultrasound Report Signed Patient: ALEJO OVERTON MR#: [id number] : 2000 Acct:[id number] Age/Sex: 24 / F ADM Date: 06/04/25 Loc: US Attending Dr: Jessie Al D.O. Ordering Physician: Jessie Al D.O. Date of Service: 06/04/25 Procedure(s): US OB anatomy Accession Number(s): [id number] cc: Jessie Al D.O.; [place] [id number] Patient Name: ALEJO OVERTON MRN: [id number] date: 2000 Sex: F Assigned Patient Location: US Current Patient Location: US Accession/Order Number: [id number] Exam Date: 06/04/2025 21:13 Report Date: 06/04/2025 [...] Jr., D.O. 06/04/2025 9:22 PM Dictation Location: [place] [address] Electronically authenticated by: [id number] Y Date: 06/04/2025 21:22 Dictated By: Juan Francisco Abel M.D. Signed By: 06/04/252124 DD/ 21 TD/TT: Hat Measurer: [facility] Radiology, Radiologi MD gabriella - 06/04/2025 [place] [address] Ultrasound Report Signed Patient: ALEJO OVERTON MR#: [id number] : 2000 Acct:[id number] Age/Sex: 24 / F ADM Date: 06/04/25 Loc: US Attending Dr: Jessie Al D.O. Ordering Physician: Jessie Al D.O. Date of Service: 06/04/25 Procedure(s): US OB anatomy Accession Number(s): [id number] cc: Jessie Al D.O.; [place] [id number] Patient Name: ALEJO OVERTON MRN: [id number] date: 2000 Sex: F Assigned Patient Location: US Current Patient Location: US Accession/Order Number: [id number] Exam Date: 06/04/2025 21:13 Report Date: 06/04/2025 [...] Jr., D.O. 06/04/2025 9:22 PM Dictation Location: [facility] Electronically authenticated by: [id number] Y Date: 06/04/2025 21:22 Dictated By: Juan Francisco Abel M.D. Signed By: 06/04/252124 DD/ 21 TD/TT: Hat Measurer: [facility] US OB CERVICAL LENGTHon 05-09 [place] [address] Ultrasound Report Signed Patient: ALEJO OVERTON MR#: [id number] : 2000 Acct:[id number] Age/Sex: 24 / F ADM Date: 06/04/25 Loc: US Attending Dr: Jessie Al D.O. Ordering Physician: Jessie Al D.O. Date of Service: 06/04/25 Procedure(s): US OB cervical length Accession Number(s): [id number] cc: Jessie Al D.O.; [place] [id number] Patient Name: ALEJO OVERTON MRN: [id number] date: 2000 Sex: F Assigned Patient Location: US Current Patient Location: US Accession/Order Number: [id number] Exam Date: 06/04/2025 21:13 Report Date: 06/04/2025 [...] Jr., D.O. 06/04/2025 9:22 PM Dictation Location: [place] [address] Electronically authenticated by: [id number] Y Date: 06/04/2025 21:22 Dictated By: Juan Francisco Abel M.D. Signed By: 06/04/252124 DD/ 21 TD/TT: Hat Measurer: [facility] Radiology, Radiologkarsten quiroz MD - 06/04/2025 [place] [address] Ultrasound Report Signed Patient: ALEJO OVERTON MR#: [id number] : 2000 Acct:[id number] Age/Sex: 24 / F ADM Date: 06/04/25 Loc: US Attending Dr: Jessie Al D.O. Ordering Physician: Jessie Al D.O. Date of Service: 06/04/25 Procedure(s): US OB cervical length Accession Number(s): [id number] cc: Jessie Al D.O.; [place] [address] Patient Name: ALEJO OVERTON MRN: [facility]:[id number] date: 2000 Sex: F Assigned Patient Location: US Current Patient Location: US Accession/Order Number: [id number] Exam Date: 06/04/2025 21:13 Report Date: 06/04/2025 [...] Jr., D.O. 06/04/2025 9:22 PM Dictation Location: [facility] Electronically authenticated by: [id number] Y Date: 06/04/2025 21:22 Dictated By: Juan Francisco Abel M.D. Signed By: 06/04/252124 DD/ 21 TD/TT: Hat Measurer: [facility] AFP, SERUM, OPEN SPINA BIFID Aon 05-23-2025 AFP MOM 0.73 . [facility] AFP VALUE 24.9 ng/mL . [facility] COMMENT: Comment . [facility] Comment on above: Blanca Martinez , Ph.D., [facility] Director References: Available Upon Request. Multiples Of Median Cutoffs For AFP Elevations Carty 2.5 Black 2.8 IDD 2.0 Twins 4.5 Abbreviation Definitions IDD - Insulin Dep Diabetes OSBR - Open Spina Bifida Risk For further inquiries contact [facility] at [phone]. This test was developed and its performance characteristics determined by [employer]. It has not been cleared or approved by the Food and Drug Administration. Performed at: [facility] [address] [place], [place] [id number] [place]: Renae Bautista Formerly [facility], Phone: [phone] GEST. AGE ON COLLECTION DATE 18.0 . weeks [facility] GESTAT. AGE BASED ON Ultrasound . [facility] Comment on above: 16.1 on 05/08/2025 Recalculations are not recommended when gestational dating by LMP and ultrasound are within 10 days. INSULIN DEP DIABETES No . [facility] INTERPRETATION Comment . [facility] Comment on above: Interpretation: Scre en Negative This result is screen negative for [...] Customer Services to discuss available options. The [employer] [employer] recommends amniocentesis be offered to women age 35 and older. [age] [facility] MULTIPLE GESTATION No . [facility] OSBR RISK [address] [place] [address] . [facility] RACE . [facility] RESULTS Report . [facility] TEST RESULTS: Negative . [facility] WEIGHT 223 . lbs [facility] N N ULTRASOUND [id number] 1 16 N 1 Y 223 N N N N N White/ [facility] Urinalysis macro (dipstick) panel (U)on 05-08-2025 Bilirubin, UA Negative Negative - 4(70) +++ mg/dL [facility] Blood, UA Negative Negative - 50 Ming/mcL [facility] Clarity, UA Clear [facility] Color, UA Yellow [facility] Glucose, UA Negative Negative - 2000(110) ++++ mg/dL [facility] Interpretation and review of laboratory results Abnormal [facility] Ketones, UA Positive Negative - 160(16) ++++ mg/dL [facility] Leukocytes, UA Trace Negative - 500+++ Manpreet/mcL [facility] Nitrite, UA Negative Negative - Positive [facility] pH, UA 6.5 5 - 9 [facility] Protein, UA Negative Negative - 2000(20) ++++ mg/dL [facility] Spec Grav, UA 1.025 1 - 1.03 [facility] Urobilinogen, UA 1.0 0.2 - 12 mg/dL [facility] Urinalysis macro (dipstick) panel (U)on 04-09-2025 Bilirubin, UA Negative Negative - 4(70) +++ mg/dL [facility] Blood, UA Negative Negative - 50 Ming/mcL [facility] Clarity, UA Clear [facility] Color, UA Yellow [facility] Glucose, UA Negative Negative - 2000(110) ++++ mg/dL [facility] Interpretation and review of laboratory results Normal [facility] Ketones, UA Negative Negative - 160(16) ++++ mg/dL [facility] Leukocytes, UA Negative Negative - 500+++ Manpreet/mcL [facility] Nitrite, UA Negative Negative - Positive [facility] pH, UA 6 5 - 9 [facility] Protein, UA Negative Negative - 1999(20) ++++ mg/dL [facility] Spec Grav, UA 1.01 1 - 1.03 [facility] Urobilinogen, UA 0.2 0.2 - 12 mg/dL [facility] BOX TESTon 03-19-2025 BOX TEST SENT OUT [facility] BOX1 [facility] BOX2 03/19/[address] [facility] US OB TRANSVAGINALon 025 US OB TRANSVAGINAL [...] II, MD, PHD at 11-Mar-2025 08:55:38 PM [facility] Normal Not Available Comment on above: [...] with steri-strips and pressure bandage applied: yes [facility] PAP IMAGE GUIDEDon 06-10 PAP IG (IMAGE GUIDED) Note . [facility] Comment on above: TESTS RESULT FLAG U NITS REF RANGE LAB Clinician Provided Cytology Information Source.............Cervix;Endocervix No. of containers..01 ThinPrep Vial DIAGNOSIS: 01 NEGATIVE FOR INTRAEPITHELIAL LESION OR MALIGNANCY. Specimen adequacy: 01 Satisfactory for evaluation. Endocervical and/or squamous metaplastic cells (endocervical component) are present. Performed by: Trinity Schmidt, Internet Sales Consultant ([facility]) . 01 Note: Note 01 [...] High <-Panic Low,>-Panic High,A-Abnormal,AA-Critical Abnormal Performed at: [address] [address] Gabi Graves MD, Performed at: - [facility] [id number] [place]: Gabi Graves MD, Phone: [phone] BRUSH-SPATULA CERVIX ENDOCERVIX [facility] Ambulatory Visit Summaryon 0 05-04-2024 Ambulatory Visit Summary Ambulatory Visit Summary ALEJO OVERTON :2000 Visit Date:05/04/2024 Ambulatory Visit Instructions Your Diagnosis Compound nevus of face Class 1 obesity due to excess calories with serious comorbidity and body mass index (BMI) of 30.0 to 30.9 in adult BMI 30.0-30.9,adult, Body mass index [BMI] 30.0-30.9, adult Your Care Team Attending Physician - Cleveland RAY DO, FAAFP Primary Care Physician - Cleveland RAY DO, FAAFP This Is Your Medications [...] Schedule the Following Appointments Follow Up with Cleveland RAY DO, FAAFP, DAE, PED When: In 6 months Where: [place] [address]- Medications What How Much When Why Instructions [...] your health care provider or diet and nutrition teacher (dietitian). This may include: ? Eating fewer [...] exercise may (more content not included)... Normal [facility] Family Medicine Office/Clini c Noteon 05-04-2024 Family [...] 20 minutes. Follow-up With When Contact Information Cleveland RAY DO, FAAFP, FAM, PED In [address], [address] [place] [id number]- Additional Instructions: Patient Education Exercising to Lose [...] ped 0 (more content not included)... Normal [facility] Comment on above: Result Comment: Elec tronically Signed By: Cleveland RAY DO, FAAFP\.br\Date and Time Signed: 05/04/24 [...] obesity Your Care Team Attending Physician - Cleveland RAY DO, FAAFP Primary Care Physician - Cleveland RAY DO, FAAFP This Is Your Medications [...] Follow-Up Appointments 2023 8:20 AM EDT With: Cleveland RAY DO, FAAFP Where: [facility] Primary Care Normal [facility] Family Medicine Office/Clini c Noteon 03-30-2024 Family [...] Daily, # 30 tab(s), Refills(s) 0, Pharmacy: [facility] #[id number], 173, cm, 03/30/24 8:25:00 EDT, Height/Length Dosing, [...] Other Testing: Follow-up With When Contact Information Cleveland RAY DO, FAAFP, DAE, PED In 1 month [address] [facility], [place] [address]- Additional Instructions: Patient Education BMI for Adults Problem List/Past Medical History Ongoing Compound nevus of face Historical Other obesity School physical exam Procedure/Surgical History None. Medications Adipex-P 37.5 mg Tab, 37.5 mg= 1 tab(s), Oral, Daily Nexplanon 68 mg subcutaneous implant, SubCutaneou (more content not included)... Normal [facility] Comment on above: Result Comment: Elec tronically Signed By: Cleveland RAY DO, FAAFP\.br\Date and Time Signed: 03/30/24 [...] numbers. This can be done either in [place]ic ([place] or metric measurements. Note that charts and online BMI calculators are available to help you find your BMI quickly and easily without having to do these calculations yourself. To calculate your BMI in [place]ic ([place] measurements: 1. Measure your weight in [...] for Disease Control and Prevention: www.cdc.gov ? [place] [employer]: www.heart.org ? National Heart, Lung, and Blood [place]: www.nhlbi.nih.gov Summary ? Body mass index (BMI) is a number that is calculated from a person's weight and height. ? BMI may help estimate how much of a person's weight is composed of fat. BMI can help identify those who may be at higher risk for certain medical problems. ? BMI can be measured using [place]ic measurements or metric measurements. ? BMI charts are used to identify whether you are underweight, normal weight, overweight, or obese. This information is not intended to replace advice given to you by your health care provider. Make sure you discuss any questions you have with your health care provider. Document Revised: 07/17/2020 Document Reviewed: 05/24/2020 [employer] Patient Education ? 2022 [employer] Normal [facility] Ambulatory Visit Summaryon 0 03-06-2024 Ambulatory Visit Summary ALEJO OVERTON :2000 Visit Date:03/06/2024 Ambulatory Visit Instructions Your Diagnosis Compound nevus of face Overweight BMI 30.0-30.9,adult Other obesity Your Care Team Attending Physician - Cleveland RAY DO, FAAFP Primary Care Physician - Cleveland RAY DO, FAAFP This Is Your Medications List etonogestrel (Nexplanon 68 mg subcutaneous implant) phentermine (Adipex-P 37.5 mg Tab) Procedures Performed None. Discharge Vitals Temperature (Oral) 36.5 ?C Heart Rate (Peripheral) 76 Respiratory Rate 16 Blood Pressure 116/70 Height 173 cm Height 68 in Weight 91.7 kg Weight 201.74 lb BMI 30.64 What to do next Scheduled Follow-Up Appointments March. 2023 8:20 AM EDT With: Cleveland RAY DO, FAAFP Where: [facility] Primary Care Normal [address] [place] [address]- \.br\ You Need to Schedule the Following Appointments\ .br\ Follow Up with Cleveland RAY DO, FAAFP, DAE, PED When: In 1 month\.br\ Where:\.br\ [address]\ [place] [address].br\ \.br\ Medications\. br\ What How Much When Why Instructions\ .br\ Unchanged etonogestrel (Nexplanon 68 mg subcutaneous implant) Subcutaneous Once\.br\ Unchanged phentermine (Adipex-P 37.5 mg Tab) 1 Tablets By Mouth Every day Other obesity Pickup at [facility] #[id number]\.br\ Pharmacy Information\. br\ [facility] #[id number]: [address], [place] [id number] [phone]\.br\ Allergies\.br \ No Known Medication Allergies\.br \ Problems\.br\ Ongoing - Any problem that you [...] for choosing us for your care.\.br\ Education Materials\.br \ Exercising to Lose Weight\.br\ Getting regular exercise [...] do a certain amount of moderate or vigorous-inte nsity exercise each week.\.br\ How can exercise affect me?\.br\ You lose weight when you exercise enough to burn more calories than you eat. Exercise also reduces body fat and builds muscle. The more muscle you have, the more calories you burn. Exercise also:\.br\ ? \.br\ Improves mood.\.br\ ? \.br\ Reduces stress and tension.\.br\ ? \.br\ Improves your overall fitness, flexibility, and endurance.\.b r\ ? \.br\ Increases bone strength.\.br \ Moderate-inte nsity exercise\.br\ \.br\ Moderate-inte nsity exercise is any activity that gets you moving enough to burn at least three times more energy (calories) than if you were sitting.\.br\ Examples of moderate exercise include:\.br\ ? \.br\ Walking a mile in 15 minutes.\.br\ ? \.br\ Doing light yard work.\.br\ ? \.br\ Biking at an easy pace.\.br\ Most people should get at least 150 minutes of moderate-inte nsity exercise a week to maintain their body weight.\.br\ Vigorous-inte nsity exercise\.br\ Vigorous-inte nsity exercise is any activity that gets you moving enough to burn at least six times more calories than if you were sitting. When you exercise at this intensity, you should be working hard enough that you are not able to carry on a conversation. \.br\ Examples of vigorous exercise include:\.br\ ? \.br\ [...] Your age.\.br\ ? \.br\ The type of exercise.\.br \ ? \.br\ Any health conditions you have.\.br\ ? \.br\ Your overall physical ability.\.br\ Talk to your health care provider about how much exercise you need and what types of activities are safe for you.\.br\ Nutrition\.br \ \.br\ ? \.br\ Make changes to your diet as told by your health care provider or diet and nutrition teacher (dietitian). This may include:\.br\ ? \.br\ Eating fewer calories.\.br \ ? \.br\ Eating more protein.\.br\ ? \.br\ [...] and heartbeat get faster with more intense exercise.\.br \ ? \.br\ Do resistance training twice each week, such as:\.br\ ? \.br\ Push-ups.\.br \ ? \.br\ Sit-ups.\.br\ ? \.br\ Lifting weights.\.br\ [...] Park your car farther away from your destination.\ .br\ ? \.br\ If you take public transportatio n, get off one stop early and walk the rest of the way.\.br\ ? \.br\ Make phone calls while standing up and walking around.\.br\ ? \.br\ Take the stairs instead of elevators or escalators.\. br\ ? \.br\ Wear comfortable clothes and shoes with good support.\.br\ ? \.br\ Do not exercise so much that you hurt yourself, feel dizzy, or get very short of breath.\.br\ Where to find more information\. br\ ? \.br\ U.[place]. Department of Health and Human Services: www.hhs.gov\. br\ ? \.br\ Centers for Disease Control and Prevention: www.cdc.gov\. br\ Contact a health care provider:\.br \ ? \.br\ Before starting a new exercise program.\.br\ ? \.br\ If you have questions or concerns about your weight.\.br\ ? \.br\ If you have a medical problem that keeps you from exercising.\. br\ Get help right away if:\.br\ ? \.br\ You have any of the following while exercising:\. br\ ? \.br\ Injury.\.br\ ? \.br\ Dizziness.\.b r\ ? \.br\ Difficulty breathing or shortness of breath that does not go away when you stop exercising.\. br\ ? \.br\ Chest pain.\.br\ ? \.br\ Rapid heartbeat.\.b r\ These symptoms may represent a serious problem that is an emergency. Do not wait to see if the symptoms will go away. Get medical help right away. Call your local emergency services (911 in the [place] Do not drive yourself to the hospital.\.br \ Summary\.br\ ? \.br\ Getting regular exercise is especially important if you are overweight.\. br\ ? \.br\ Being overweight increases your risk [...] to you by your health care provider. 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 Medications Adipex-P 37.5 mg Tab, 37.5 mg= 1 tab(s), Oral, Daily Nexplanon 68 mg subcutaneous implant, SubCutaneous, Once Allergies No Known Medication Allergies Social History Alcohol - Denies (more content not included)... Normal [facility] Comment on above: Result Comment: Elec tronically Signed By: Cleveland RAY DO, FAAFP\.br\Date and Time Signed: 03/06/24 08:20 EDT Patient Educationon 03-06-20 Patient Education Physical Medicine an d Rehabilitation [...] your health care provider or diet and nutrition teacher (dietitian). This may include: ? Eating fewer [...] is e (more content not included)... Normal [facility] Ambulatory Visit Summaryon 0 02-03-2024 Ambulatory Visit Summary ALEJO OVERTON :2000 Visit Date:02/03/2024 Ambulatory Visit Instructions Your Diagnosis Compound nevus of face BMI 31.0-31.9,adult Other obesity Your Care Team Attending Physician - Cleveland RAY DO, FAAFP Primary Care Physician - Cleveland RAY DO, FAAFP This Is Your Medications [...] Mouth Every day Other obesity Pickup at [id number] Pharmacy Information [id number]: [address], [place] [id number] [phone] Allergies No Known Medication Allergies Problems Ongoing [...] for choosing us for your care. Normal [facility] Family Medicine Office/Clini c Noteon 02-03-2024 Family [...] Daily, # 30 tab(s), Refills(s) 0, Pharmacy: [facility] #[id number], 173, cm, 02/03/24 8:01:00 EDT, Height/Length Dosing, 93, kg, 02/03/24 8:01:00 EDT, Weight Dosing Follow-up With When Contact Information AURELIO BAJWA FAAPA, Cleveland Santo, DAE, PED In [address] [place] [address]- Additional Instructions: Patient Education Exercising to Lose [...] virus vaccine 04/03/2005 Recorded poliovirus vaccine, inactivated (more content not included)... [facility] Comment on above: Result Comment: Williams marquis Signed By: Cleveland RAY DO, FAAFP\Date and Time Signed: 02/03/24 08:35 EDT Patient [...] your health care provider or diet and nutrition teacher (dietitian). This may include: ? Eating fewer [...] is e (more content not included)... Normal [facility] CHEMISTRYOrdered By: SYSTEM SYSTEM on 01-16-2023 Cholesterol [Mass/Vol] 140 mg/dL Normal 120 - 200 mg/dL [facility] Cholesterol in HDL [Mass/Vol] 51 mg/dL Invalid Interpretation Code [facility] Remisol Cholesterol in LDL [Mass/Vol] 88 mg/dL Normal <=129mg/dL [facility] Remisol Cholesterol in VLDL [Mass/Vol] 7 mg/dL Normal 7 - 40 mg/dL [facility] Remisol Glucose post fast [Mass/Vol] 99 mg/dL Normal 55 - 99 mg/dL [facility] Triglyceride [Mass/Vol] 37 mg/dL Normal <=149mg/dL [facility] Vital Signs Date Time Vital Sign Value Performing Clinician Facility 06-05-2025 14:37-0400 Body mass index (BMI) [Ratio] 32.79 kg/m2 Gabby CHANEL Work Phone: [facility] 06-05-2025 14:37-0400 Body weight 103.65 kg Gabby CHANEL Work Phone: [facility] 06-05-2025 14:37-0400 Diastolic blood pressure 76 mm[Hg] Gabby CHANEL Work Phone: [facility] 06-05-2025 14:37-0400 Systolic blood pressure 120 mm[Hg] Gabby CHAENL Work Phone: [facility] 05-08-2025 09:35-0400 Body mass index (BMI) [Ratio] 32.11 kg/m2 Jessie Nelson DO Work Phone: [facility] 05-08-2025 09:35-0400 Body weight 101.52 kg Jessie Nelson DO Work Phone: [facility] 05-08-2025 09:35-0400 Diastolic blood pressure 72 mm[Hg] Jessie Nelson DO Work Phone: [facility] 05-08-2025 09:35-0400 Systolic blood pressure 118 mm[Hg] Jessie Nelson DO Work Phone: [facility] 04-09-2025 15:37-0400 Body mass index (BMI) [Ratio] 31.67 kg/m2 Jessie Nelson DO Work Phone: [facility] 04-09-2025 15:37-0400 Body weight 100.13 kg Jessie Nelson DO Work Phone: [facility] 04-09-2025 15:37-0400 Diastolic blood pressure 78 mm[Hg] Jessie Nelson DO Work Phone: [facility] 04-09-2025 15:37-0400 Systolic blood pressure 122 mm[Hg] Jessie Nelson DO Work Phone: [facility] 03-09-2025 09:18-0400 Body mass index (BMI) [Ratio] 31.15 kg/m2 Nom [facility] 03-09-2025 09:18-0400 Body weight 98.48 kg [facility] Nurse [facility] 11-20-2024 13:47-0500 Body mass index (BMI) [Ratio] 29.99 kg/m2 Jessie Nelson DO Work Phone: [facility] 11-20-2024 13:47-0500 Body weight 94.8 kg Jessie Nelson DO Work Phone: [facility] 11-20-2024 13:47-0500 Diastolic blood pressure 76 mm[Hg] Jessie Nelson DO Work Phone: [facility] 11-20-2024 13:47-0500 Systolic blood pressure 112 mm[Hg] Jessie Nelson DO Work Phone: [facility] 07-03-2024 14:50-0400 Body mass index (BMI) [Ratio] 29.1 kg/m2 Jessie Nelson DO Work Phone: [facility] 07-03-2024 14:50-0400 Body weight 91.99 kg Jessie Nelson DO Work Phone: [facility] 07-03-2024 14:50-0400 Diastolic blood pressure 70 mm[Hg] Jessie Nelson DO Work Phone: [facility] 07-03-2024 14:50-0400 Systolic blood pressure 112 mm[Hg] Jessie Nelson DO Work Phone: [facility] 05-04-2024 08:28-0400 Blood Pressure Location Cleveland KAPLE [facility] 05-04-2024 08:28-0400 Body temperature 97.88 [degF] Cleveland KAPLE [facility] 05-04-2024 08:28-0400 Diastolic blood pressure 70 mm[Hg] Cleveland KAPLE [facility] 05-04-2024 08:28-0400 Heart rate 78 /min Cleveland KAPLE [facility] 05-04-2024 08:28-0400 Respiratory rate 16 /min Cleveland KAPLE [facility] 05-04-2024 08:28-0400 SaO2% (BldA) [Mass fraction] 99 % Cleveland KAPLE [facility] 05-04-2024 08:28-0400 Systolic blood pressure 120 mm[Hg] Cleveland KAPLE [facility] 03-30-2024 08:18-0400 Blood Pressure Location [place] KAPLE [facility] 03-30-2024 08:18-0400 Body temperature 97.88 [degF] [place] KAPLE [facility] 03-30-2024 08:18-0400 Diastolic blood pressure 72 mm[Hg] Cleveland KAPLE [facility] 03-30-2024 08:18-0400 Heart rate 80 /min Cleveland KAPLE [facility] 03-30-2024 08:18-0400 Respiratory rate 16 /min [place] KAPLE [facility] 03-30-2024 08:18-0400 SaO2% (BldA) [Mass fraction] 99 % Cleveland KAPLE [facility] 03-30-2024 08:18-0400 Systolic blood pressure 118 mm[Hg] Cleveland KAPLE [facility] 03-06-2024 07:56-0400 Blood Pressure Location [place] KAPLE [facility] 03-06-2024 07:56-0400 Body temperature 97.7 [degF] [place] KAPLE [facility] 03-06-2024 07:56-0400 Diastolic blood pressure 70 mm[Hg] [place] KAPLE [facility] 03-06-2024 07:56-0400 Heart rate 76 /min Cleveland KAPLE [facility] 03-06-2024 07:56-0400 Respiratory rate 16 /min Cleveland KAPLE [facility] 03-06-2024 07:56-0400 SaO2% (BldA) [Mass fraction] 99 % Cleveland KAPLE [facility] 03-06-2024 07:56-0400 Systolic blood pressure 116 mm[Hg] Cleveland KAPLE [facility] 02-03-2024 07:54-0400 Blood Pressure Location [place] KAPLE [facility] 02-03-2024 07:54-0400 Body temperature 97.88 [degF] Cleveland KAPLE [facility] 02-03-2024 07:54-0400 Diastolic blood pressure 72 mm[Hg] Cleveland KAPLE [facility] 02-03-2024 07:54-0400 Heart rate 80 /min Cleveland KAPLE [facility] 02-03-2024 07:54-0400 Respiratory rate 16 /min Cleveland KAPLE [facility] 02-03-2024 07:54-0400 SaO2% (BldA) [Mass fraction] 97 % Cleveland KAPLE [facility] 02-03-2024 07:54-0400 Systolic blood pressure 112 mm[Hg] Cleveland KAPLE [facility] 01-06-2024 08:26-0500 Blood Pressure Location [place] KAPLE [facility] 01-06-2024 08:26-0500 Body temperature 97.88 [degF] [place] KAPLE [facility] 01-06-2024 08:26-0500 Diastolic blood pressure 72 mm[Hg] Cleveland KAPLE [facility] 01-06-2024 08:26-0500 Heart rate 84 /min Cleveland KAPLE [facility] 01-06-2024 08:26-0500 Respiratory rate 16 /min [place] KAPLE [facility] 01-06-2024 08:26-0500 SaO2% (BldA) [Mass fraction] 99 % Cleveland KAPLE [facility] 01-06-2024 08:26-0500 Systolic blood pressure 112 mm[Hg] Cleveland KAPLE [facility] 12-06-2023 08:24-0500 Blood Pressure Location [place] KAPLE [facility] 12-06-2023 08:24-0500 Body temperature 97.88 [degF] [place] KAPLE [facility] 12-06-2023 08:24-0500 Diastolic blood pressure 70 mm[Hg] Cleveland KAPLE [facility] 12-06-2023 08:24-0500 Heart rate 86 /min [place] KAPLE [facility] 12-06-2023 08:24-0500 Respiratory rate 16 /min [place] KAPLE [facility] 12-06-2023 08:24-0500 SaO2% (BldA) [Mass fraction] 98 % Cleveland KAPLE [facility] 12-06-2023 08:24-0500 Systolic blood pressure 112 mm[Hg] Cleveland KAPLE [facility] 11-04-2023 07:49-0500 Blood Pressure Location [place] KAPLE [facility] 11-04-2023 07:49-0500 Body temperature 97.88 [degF] [place] KAPLE [facility] 11-04-2023 07:49-0500 Diastolic blood pressure 72 mm[Hg] Cleveland KAPLE [facility] 11-04-2023 07:49-0500 Heart rate 86 /min [place] KAPLE [facility] 11-04-2023 07:49-0500 Respiratory rate 16 /min [place] KAPLE [facility] 11-04-2023 07:49-0500 SaO2% (BldA) [Mass fraction] 97 % Cleveland KAPLE [facility] 11-04-2023 07:49-0500 Systolic blood pressure 114 mm[Hg] Cleveland KAPLE [facility] 05-03-2023 07:40-0400 Blood Pressure Location [place] KAPLE [facility] 05-03-2023 07:40-0400 Body temperature 97.88 [degF] [place] KAPLE [facility] 05-03-2023 07:40-0400 Diastolic blood pressure 74 mm[Hg] [place] KAPLE [facility] 05-03-2023 07:40-0400 Heart rate 85 /min [place] KAPLE [facility] 05-03-2023 07:40-0400 Respiratory rate 16 /min [place] KAPLE [facility] 05-03-2023 07:40-0400 SaO2% (BldA) [Mass fraction] 100 % Cleveland KAPLE [facility] 05-03-2023 07:40-0400 Systolic blood pressure 116 mm[Hg] Cleveland KAPLE [facility] 02-22-2023 14:47-0400 Blood Pressure Location [place] KAPLE [facility] 02-22-2023 14:47-0400 Body temperature 97.88 [degF] [place] KAPLE [facility] 02-22-2023 14:47-0400 Diastolic blood pressure 78 mm[Hg] [place] KAPLE [facility] 02-22-2023 14:47-0400 Heart rate 78 /min [place] KAPLE [facility] 02-22-2023 14:47-0400 Respiratory rate 16 /min [place] KAPLE [facility] 02-22-2023 14:47-0400 SaO2% (BldA) [Mass fraction] 99 % Cleveland KAPLE [facility] 02-22-2023 14:47-0400 Systolic blood pressure 120 mm[Hg] [place] KAPLE [facility] 01-22-2023 13:14-0400 Blood Pressure Location [place] KAPLE [facility] 01-22-2023 13:14-0400 Body temperature 98.24 [degF] [place] KAPLE [facility] 01-22-2023 13:14-0400 Diastolic blood pressure 78 mm[Hg] [place] KAPLE [facility] 01-22-2023 13:14-0400 Heart rate 76 /min [place] KAPLE [facility] 01-22-2023 13:14-0400 Systolic blood pressure 124 mm[Hg] [place] KAPLE [facility] 01-14-2023 07:53-0500 Blood Pressure Location [place] KAPLE [facility] 01-14-2023 07:53-0500 Body temperature 97.88 [degF] [place] KAPLE [facility] 01-14-2023 07:53-0500 Diastolic blood pressure 70 mm[Hg] Cleveland LOPEZLE [facility] 01-14-2023 07:53-0500 Heart rate 69 /min Cleveland RAY [facility] 01-14-2023 07:53-0500 Respiratory rate 16 /min Cleveland LOPEZLE [facility] 01-14-2023 07:53-0500 SaO2% (BldA) [Mass fraction] 98 % Cleveland LOPEZLE [facility] 01-14-2023 07:53-0500 Systolic blood pressure 114 mm[Hg] Cleveland LOPEZLE [facility] Encounters Encounter Date Encounter Type Care Provider Facility Start: 07-04-2025 End: 07-04-2025 Bamboo flowsheet Jessie Nelson DO Work Phone: [facility] Start: 07-04-2025 End: 07-04-2025 Bamboo flowsheet Jessie Nelson DO Work Phone: [facility] Start: 06-13-2025 End: 06-13-2025 Clinisync Result Encounter Jessie Nelson DO Work Phone: [facility] Start: 06-13-2025 End: 06-13-2025 Clinisync Result Encounter Jessie Nelson DO Work Phone: [facility] Start: 06-05-2025 End: 06-05-2025 flow sheet Gabby CHANEL Work Phone: [facility] Comment on above: Second trimester pre gnancy ([facility]); 20 weeks gestation of ([facility]); Encounter for follow-up ultrasound of anatomy ([facility]) Start: 06-05-2025 End: 06-05-2025 ambulatory GABBY LINDER Not Available Start: 06-05-2025 End: 06-05-2025 Bamboo flowsheet Gabby Linder PA Work Phone: [facility] Start: 06-05-2025 End: 06-05-2025 Bamboo flowsheet Gabby Shuklaey PA Work Phone: [facility] Start: 06-04-2025 End: 06-04-2025 Clinisync Result Encounter Jessie Nelson DO Work Phone: [facility] Start: 06-04-2025 End: 06-04-2025 Clinisync Result Encounter Jessie Nelson DO Work Phone: [facility] Start: 05-21-2025 End: 05-23-2025 Clinisync Result Encounter Jessie Nelson DO Work Phone: [facility] Start: 05-21-2025 End: 05-23-2025 Clinisync Result Encounter Jessie Nelson DO Work Phone: [facility] Start: 05-08-2025 End: 05-08-2025 Bamboo flowsheet Jessie Nelson DO Work Phone: [facility] Start: 05-08-2025 End: 05-08-2025 Bamboo flowsheet Jessie Nelson DO Work Phone: [facility] Start: 05-08-2025 End: 05-08-2025 ambulatory JESSIE NELSON Not Available Start: 05-08-2025 End: 05-08-2025 flow sheet Jessie Nelson DO Work Phone: [facility] Comment on above: Second trimester pre gnancy ([facility]); 16 weeks gestation of ([facility]); Screening, , for anatomic survey ([facility]) Start: 04-09-2025 End: 04-09-2025 ambulatory JESSIE NELSON Not Available Start: 04-09-2025 End: 04-09-2025 flow sheet Jessie Nelson DO Work Phone: [facility] Comment on above: First trimester preg [place] (Primary Dx) Start: 04-09-2025 End: 04-09-2025 Bamboo flowsheet Jessie Nelson DO Work Phone: [facility] Start: 04-09-2025 End: 04-09-2025 Bamboo flowsheet Jessie Nelson DO Work Phone: [facility] Start: 03-19-2025 End: 03-19-2025 Clinisync Result Encounter Jessie Nelson DO Work Phone: [facility] Start: 03-19-2025 End: 03-19-2025 Clinisync Result Encounter Jessie Nelson DO Work Phone: [facility] Start: 03-13-2025 ambulatory Cleveland Gal RAY Facility: [facility] Start: 03-09-2025 End: 03-09-2025 Office outpatient visit 5 minutes [facility] Nelson Nurse [facility] Comment on above: GA: 7w4d Start: 03-09-2025 End: 03-09-2025 ambulatory JESSIE NELSON Not Available Start: 11-20-2024 End: 11-20-2024 Patient encounter procedure Jessie Nelson DO Work Phone: [facility] Comment on above: Nexplanon removal Start: 11-20-2024 End: 11-20-2024 ambulatory JESSIE NELSON Not Available Start: 07-03-2024 End: 07-03-2024 Periodic preventive med est patient 18-39 yrs Jessie Nelson DO Work Phone: [facility] Comment on above: Encounter for repeat Pap smear due to previous insufficient cervical cells Start: 07-03-2024 End: 07-03-2024 ambulatory JESSIE NELSON Not Available Start: 07-03-2024 End: 07-03-2024 Bamboo flowsheet Jessie Nelson DO Work Phone: [facility] Start: 07-03-2024 End: 09-12-2024 Clinisync Result Encounter Jessie Nelson DO Work Phone: [facility] Start: 07-03-2024 End: 09-12-2024 Clinisync Result Encounter Jessie Nelson DO Work Phone: [facility] Start: 05-04-2024 End: 05-04-2024 ambulatory Cleveland A KAPLE Facility:[facility] Start: 05-04-2024 End: 05-04-2024 Patient encounter procedure Cleveland A KAPLE [facility] Start: 03-30-2024 End: 03-30-2024 ambulatory Cleveland A KAPLE Facility:[facility] Start: 03-30-2024 End: 03-30-2024 Patient encounter procedure Cleveland A KAPLE [facility] Start: 03-06-2024 End: 03-06-2024 ambulatory Cleveland A KAPLE Facility:[facility] Start: 03-06-2024 End: 03-06-2024 Patient encounter procedure Cleveland A KAPLE [facility] Start: 02-03-2024 End: 02-03-2024 ambulatory Cleveland A KAPLE Facility:[facility] Start: 02-03-2024 End: 02-03-2024 Patient encounter procedure Cleveland A KAPLE [facility] Start: 01-06-2024 End: 01-06-2024 Patient encounter procedure Cleveland A KAPLE [facility] Start: 12-06-2023 End: 12-06-2023 Patient encounter procedure Cleveland A KAPLE [facility] Start: 11-04-2023 End: 11-04-2023 Patient encounter procedure Cleveland RAY [facility] Start: 05-03-2023 End: 05-03-2023 Patient encounter procedure Cleveland RAY [facility] Start: 02-22-2023 End: 02-22-2023 Patient encounter procedure Cleveland RAY [facility] Start: 01-22-2023 End: 01-22-2023 Patient encounter procedure Cleveland RAY [facility] Start: 01-16-2023 End: 01-16-2023 Patient encounter procedure Cleveland RAY [facility] Start: 01-14-2023 End: 01-14-2023 Patient encounter procedure Cleveland RAY [facility] Start: 01-14-2023 End: 01-14-2023 Well adult monitoring check done Cleveland RAY [facility] Procedures Date Procedure Procedure Detail Performing Clinician Start: 06-13-2025 US OB INCOMPLETE ANATOMY Jessie Nelson DO Work Phone: Start: 06-04-2025 US OB ANATOMY Jessie Marija io DO Work Phone: Start: 06-04-2025 US OB CERVICAL LENGTH C orey Nelson DO Work Phone: Start: 05-21-2025 AFP, SERUM, OPEN SPI NA BIFIDA Jessie Nelson DO Work Phone: Start: 05-08-2025 Urnls dip stick/tabl et rgnt non-auto w/o micrscp Jessie Nelson DO Work Phone: Start: 04-09-2025 Urnls dip stick/tabl et rgnt non-auto w/o micrscp Jessie Nelson DO Work Phone: Start: 03-19-2025 BOX TEST Jessie Fazi o DO Work Phone: Start: 11-20-2024 CLIENT ENGAGEMENT SPECIALIST INSERTION/REMOVA L OF CONTRACEPTIVE CAPSULE Jessie Nelson DO Work Phone: Start: 07-03-2024 ELCH PAP IMAGE GUIDED C orey Nelson DO Work Phone: None (qualifier value) [place] RAY Plan of Treatment Date Care Activity Detail Author Start: 07-04-2025 End: 07-04-2025 Patient encounter procedure [facility] Comment on above: Arrived Start: 06-05-2025 End: 06-05-2025 Patient encounter procedure [facility] Comment on above: Arrived Start: 06-05-2025 End: 09-05-2025 US for US OB limited 1+ fetuses Imaging Routine Encounter for follow-up ultrasound of anatomy ([facility]) Expected: 06/05/2025, Expires: 09/05/2025 [facility] Work Phone: Comment on above: Expected: 06/05/2025 , Expires: 09/05/2025 Start: 05-31-2025 End: 05-31-2025 Patient encounter procedure 05/31/2025 8:30 AM EDT Office Visit [facility] [address] [place] [address] Jessie Al, DO [address] [place] [address] [facility] Start: 05-08-2025 End: 11-08-2025 Alpha fetoprotein, maternal Alpha fetoprotein, maternal Lab Routine Second trimester ([facility]) 16 weeks gestation of ([facility]) Expected: 05/08/2025 (Approximate), Expires: 11/08/2025 [facility] Work Phone: Comment on above: Expected: 05/08/2025 (Approximate), Expires: 11/08/2025 Start: 05-08-2025 End: 08-08-2025 US for US OB 14+ weeks anatomy scan Imaging Routine Screening, , for anatomic survey ([facility]) Expected: 05/08/2025, Expires: 08/08/2025 [facility] Comment on above: Expected: 05/08/2025 , Expires: 08/08/2025 Start: 05-08-2025 End: 05-08-2025 Patient encounter procedure 05/08/2025 9:10 AM EDT Routine [facility] [address] [place] [id number] Jessie Al, DO [address] [place] [address] [place] [address] [facility] Start: 04-09-2025 End: 04-09-2025 Patient encounter procedure 04/09/2025 3:10 PM EDT Routine [facility] [address] [place] [id number] Jessie Al, DO [address] [place] [address] [facility] Start: 03-09-2025 End: 03-09-2026 ABO/Rh ABO/Rh Lab Routine Missed menses , unspecified gestational age Expected: 03/09/2025 (Approximate), Expires: 03/09/2026 [facility] Comment on above: Expected: 03/09/2025 (Approximate), Expires: 03/09/2026 Start: 03-09-2025 End: 03-09-2026 Blood type and Indirect antibody screen panel - Blood Type and screen Lab Routine Missed menses , unspecified gestational age Expected: 03/09/2025 (Approximate), Expires: 03/09/2026 [facility] Work Phone: Comment on above: Expected: 03/09/2025 (Approximate), Expires: 03/09/2026 Start: 03-09-2025 End: 03-09-2026 Drugs of abuse panel - Urine by Screen method Rapid drug screen, urine Lab Routine , unspecified gestational age Encounter for supervision of normal first in first trimester Expected: 03/09/2025 (Approximate), Expires: 03/09/2026 [facility] Comment on above: Expected: 03/09/2025 (Approximate), Expires: 03/09/2026 Start: 11-20-2024 End: 11-20-2024 Patient encounter procedure 11/20/2024 3:30 PM EST Procedure Visit [facility] [address] [place] [id number] Jessie Al, DO [address] [place], [place] [id number] [facility] Start: 07-03-2024 End: 07-03-2024 Patient encounter procedure 07/03/2024 2:20 PM EDT Procedure Visit [facility] [address] [address] [place] [id number] Jessie Al, DO [address] [place], [place] [id number] Arrived [facility] Comment on above: Arrived Bacteria identified in Urine by Culture Urine culture Microbiology Routine Missed menses Ordered: 03/09/2025 [facility] Comment on above: Ordered: 03/09/2025 CBC W Auto Different ial panel - Blood CBC and differential Lab Routine Missed menses , unspecified gestational age Ordered: 03/09/2025 [facility] Comment on above: Ordered: 03/09/2025 Cytology Cervical or vaginal smear or scraping study Pap Smear Pathology and Cytology Routine Encounter for repeat Pap smear due to previous insufficient cervical cells Ordered: 07/03/2024 [facility] Work Phone: Comment on above: Ordered: 07/03/2024 Hemoglobin A1c/Hemoglobin.total in Blood Hemoglobin A1c Lab Routine Missed menses , unspecified gestational age Ordered: 03/09/2025 [facility] Comment on above: Ordered: 03/09/2025 Hepatitis B virus surface Ag [Presence] in Serum or Plasma by Immunoassay Hepatitis B surface antigen Lab Routine Missed menses , unspecified gestational age Ordered: 03/09/2025 [facility] Comment on above: Ordered: 03/09/2025 Hepatitis C virus Ab [Presence] in Serum or Plasma by Immunoassay Hepatitis C antibody Lab Routine Missed menses , unspecified gestational age Ordered: 03/09/2025 [facility] Comment on above: Ordered: 03/09/2025 HIV-1/HIV-2 antigen/antibody combination immunoassay HIV-1 and HIV-2 antibodies Lab Routine Missed menses , unspecified gestational age Ordered: 03/09/2025 [facility] Comment on above: Ordered: 03/09/2025 Reagin Ab [Presence] in Serum by RPR RPR Lab Routine Missed menses , unspecified gestational age Ordered: 03/09/2025 [facility] Comment on above: Ordered: 03/09/2025 Rubella antibody, IgG Rubella an tibody, IgG Lab Routine Missed menses , unspecified gestational age Ordered: 03/09/2025 [facility] Comment on above: Ordered: 03/09/2025 Immunizations Immunization Date Immunization Notes Care Provider Fa [facility] 09-18-2020 influenza virus vaccine, unspecified formulation Cleveland RAY [facility] 05-04-2020 tetanus toxoid, unspecified formulation Cleveland RYA [facility] 05-04-2020 tetanus toxoid, reduced diphtheria toxoid, and acellular pertussis vaccine, adsorbed Cleveland RAY [facility] 07-22-2017 meningococcal ACWY vaccine, unspecified formulation Cleveland RAY [facility] 07-22-2017 meningococcal B vaccine, fully recombinant Cleveland RAY [facility] 07-20-2012 diphtheria, tetanus toxoids and acellular pertussis vaccine Cleveland LOPEZLE [facility] 07-20-2012 HPV, unspecified formulation Cleveland KAPLE [facility] 07-20-2012 meningococcal ACWY vaccine, unspecified formulation Cleveland KAPLE [facility] 04-03-2005 DTaP, unspecified formulation Cleveland KAPLE [facility] 04-03-2005 measles, mumps and rubella virus vaccine Cleveland KAPLE [facility] 04-03-2005 poliovirus vaccine, unspecified formulation Cleveland KAPLE [facility] 07-24-2003 diphtheria, tetanus toxoids and acellular pertussis vaccine Cleveland KAPLE [facility] 07-24-2003 haemophilus influenz ae type b vaccine, PRP-OMP conjugate Cleveland KAPLE [facility] 07-24-2003 hepatitis B vaccine, pediatric or pediatric/adolescent dosage Cleveland KAPLE [facility] 07-24-2003 poliovirus vaccine, unspecified formulation Cleveland LOPEZLE [facility] 08-30-2002 varicella virus vaccine Cleveland KAPLE [facility] 08-24-2001 hepatitis B vaccine, pediatric or pediatric/adolescent dosage Cleveland KAPLE [facility] 08-24-2001 measles, mumps and rubella virus vaccine Cleveland KAPLE [facility] 08-24-2001 varicella virus vaccine Cleveland KAPLE [facility] 03-11-2000 hepatitis B vaccine, pediatric or pediatric/adolescent dosage Cleveland RAY [facility] 01-06-2000 poliovirus vaccine, unspecified formulation Cleveland RAY [facility] 1999 poliovirus vaccine, unspecified formulation Cleveland RAY [facility] NEGATED: Highlighted row has not occurred!01-22-2023 influenza virus vaccine, unspecified formulation Cleveland RAY [facility] Payers Date Payer Category Payer [facility] BCBS [id number] 2021 Unknown BCBS BCBS [id number] [id number] 2021-Present [phone] [address] [place] [address] [id number] 2021 Unknown [id number] 1999 Unknown [id number] 1999 Unknown [id number] 1999 Unknown [id number] 9.2.727 1999 Unknown [id number] 9.2.727 1999 Unknown [id number] 9.2.727 1999 Unknown [id number] 9.2.1259 1999 Unknown [id number] 9.2.1259 1999 Unknown [id number] 9.2.1259 1999 Unknown [id number] 9.2.1259 1999 Unknown [id number] 9.2.1259 1999 Unknown [id number] 9.2.1259 1999 Unknown [id number] 9.2.1259 Social History Date Type Detail Facility Start: 01-14-2023 End: 05-26-2023 Tobacco smoking status Never smoked tobacco (finding) [facility] Tobacco smoking status Never [facility] Start: 05-27-2023 End: 07-03-2024 Sex Assigned At Female [facility] Start: 07-03-2024 End: 05-08-2025 Alcoholic beverage intake Current drinker of alcohol (finding) [facility] Start: 05-27-2023 End: 07-03-2024 History of Social function [facility] Start: 05-26-2023 Alcohol Comment Alcohol: month ly or less. Caffeine: none [facility] Start: 1999 Sex assigned at Not on file [facility] Start: 01-29-2025 [facility] Functional Status Date Assessment Result Facility 05-04-2024 Functional Status N/A [facility] 03-30-2024 Functional Status N/A [facility] 03-06-2024 Functional Status N/A [facility] 02-03-2024 Functional Status N/A [facility] 01-06-2024 Functional Status N/A [facility] 12-06-2023 Functional Status N/A [facility] 11-04-2023 Functional Status N/A [facility] 05-03-2023 Functional Status N/A [facility] 02-22-2023 Functional Status N/A [facility] 01-22-2023 Functional Status N/A [facility] 01-14-2023 Functional Status N/A [facility] Clinical Notes 01-14-2023 to 06-05-2025 DARÍO Bravo - 06/05/2025 2:30 PM Wendy Pat [facility]ER - 05/08/2025 9:10 AM EDUmberto Brice - 04/09/2025 3:10 PM Manisha Storm [facility]ER - 03/09/2025 9:00 AM EDTLaboratory Note Date & Type Note Facility 06-05-2025 History of Presen t illness Narrative Reason [...] Vitals: Estimated body mass index is 32.79 kg/m as calculated from the following: Height as of 05/29/24: 5' 10 . Weight as of this encounter: 228 lb 8 oz. BP: 120/76 Patient's last menstrual period was 01/04/2025. ASSESSMENT & PLAN ICD-10-CM 1. Second trimester ([facility]) Z34.92 2. 20 weeks gestation of ([facility] Z3A.20 Return OB: Patient presents today for [...] of: DARÍO Bravo documented in this encounter [facility] 05-08-2025 History of Presen t illness Narrative Reason [...] nursing note reviewed. Exam conducted with a tablet technician present. Vitals: Estimated body mass index is 32.11 kg/m as calculated from the following: Height as of 05/29/24: 5' 10 . Weight as of this encounter: 223 lb 12.8 oz. BP: 118/72 Patient's last menstrual period was 01/04/2025. ASSESSMENT & PLAN ICD-10-CM 1. Second trimester ([facility]) Z34.92 POCT urinalysis dipstick manually resulted Alpha fetoprotein, maternal Alpha fetoprotein, maternal 2. 16 weeks gestation of ([facility]) Z3A.16 POCT urinalysis dipstick manually resulted Alpha fetoprotein, maternal Alpha fetoprotein, maternal 3. Screening, , for anatomic survey ([facility]) Z36.89 US OB 14+ weeks anatomy scan Patient presents today for a routine obstetrics appointment. Patient is currently 16w1d with a Estimated Date of Delivery: 10/22/25. Pt given msAFP order and anatomy scan order to have obtained. Pt to return in 4 weeks for scheduled OB appt. Documented by Yesenia Pat LPN on behalf of: Jessie Al DO documented in this encounter [facility] 04-09-2025 History of Presen t illness Narrative Reason for Appointment: Patient ID: Alejo Overton is a 24 y.o. female who presents for Routine Visit Patient presents today for Return OB appointment. MEDICATIONS Current Outpatient Medications Medication Instructions nitrofurantoin (macrocrystal-monohydrate) (MACROBID) 100 mg, Oral, 2 times daily ALLERGIES No Known Allergies PROBLEMS Active Ambulatory [...] nursing note reviewed. Exam conducted with a tablet technician present. Vitals: Estimated body mass index is 31.67 kg/m as calculated from the following: Height as of 05/29/24: 5' 10 . Weight as of this encounter: 220 lb 12 oz. BP: 122/78 Patient's last menstrual period was 01/04/2025. ASSESSMENT & PLAN ICD-10-CM 1. First trimester Z34.91 POCT urinalysis dipstick manually resulted CANCELED: POCT urinalysis dipstick manually resulted New OB: Patient presents today for 1st time obstetrics appointment with provider. Patient is currently 12w0d . Patients history has been reviewed in great detail including any potential risks. Patient stated she currently has no complaints. Expectations throughout regarding labs, ultrasounds, and appointments have been discussed with the patient in detail. It was reiterated that the patient is to drink 6-8 glasses of water a day, eat 6 small meals a day, do not consume raw or undercooked meat, and stay away from [facility]. Patient has been consulted regarding any further do's and don'ts of . Patient voiced understanding and all questions and concerns were answered. Informed patient that she would be due to have cultures obtained at her next appointment but we will hold off on her pap because she is up to date and we will obtain pap after delivery. Orders Placed This Encounter Procedures POCT urinalysis dipstick manually resulted Follow Up: Patient is to return in 4 weeks for routine OB appointment. Documented by Shannon Tomas LPN on behalf of: Gabby Linder PA-C documented in this encounter [facility] 03-09-2025 History of Presen t illness Narrative [...] or undercooked meat, and stay away from [facility]. Patient has also been advised to not [...] Jacinda Storm LPN documented in this encounter [facility] 11-20-2024 History of Presen t illness Narrative [...] nursing note reviewed. Exam conducted with a tablet technician present. Vitals: Estimated body mass index is [...] Jessie Al DO documented in this encounter [facility] 07-03-2024 History of Presen t illness Narrative [...] nursing note reviewed. Exam conducted with a tablet technician present. Vitals: Estimated body mass index is [...] Jessie Al DO documented in this encounter [facility] 05-04-2024 Hospital Discharg e instructions Patient Education [...] your health care provider or diet and nutrition teacher (dietitian). This may include: ?Eating fewer calories. [...] provider. Document Revised: 12/21/2021 Document Reviewed: 12/21/2021 [employer] Patient Education 2022 [employer]. Follow Up Care 02/03/2024 08:31:57 With:AURELIO BAJWA FAAFP, Cleveland Santo, DAE, PED Address: [address], [place] [address]- When:Within 6 Month(s) [facility] 05-04-2024 Note Patient Education Physical [...] your health care provider or diet and nutrition teacher (dietitian). This may include: ? Eating fewer [...] ? Getting r (more content not included)... [facility] 03-30-2024 Hospital Discharg e instructions Patient Education [...] numbers. This can be done either in [place]ic (U.S.) or metric measurements. Note that charts and online BMI calculators are available to help you find your BMI quickly and easily without having to do these calculations yourself. To calculate your BMI in [place]ic ([place].) measurements: 1.Measure your weight in pounds [...] Centers for Disease Control and Prevention: www.cdc.gov [place] Heart Association: www.heart.org National Heart, Lung, and Blood [place]: www.nhlbi.nih.gov Summary Body mass index (BMI) is a number that is calculated from a person's weight and height. BMI may help estimate how much of a person's weight is composed of fat. BMI can help identify those who may be at higher risk for certain medical problems. BMI can be measured using Green[place]ic measurements or metric measurements. BMI charts are used to identify whether you are underweight, normal weight, overweight, or obese. This information is not intended to replace advice given to you by your health care provider. Make sure you discuss any questions you have with your health care provider. Document Revised: 07/17/2020 Document Reviewed: 05/24/2020 [employer] Patient Education 2022 [employer]. Follow Up Care 02/03/2024 08:30:45 With:AURELIO BAJWA FAAFP, DAE Newsome, PED Address: [address] [place] [address]- When:Within 1 Month(s) [facility] 03-06-2024 Hospital Discharg e instructions [...] your health care provider or diet and nutrition teacher (dietitian). This may include: ?Eating fewer calories. [...] Document Reviewed: 12/21/2021 Elsevier Patient Education 2022 [employer]. Follow Up Care 02/03/2024 08:29:28 With:AURELIO BAJWA FAAFP, Cleveland Santo, DAE, PED Address: [place] [address]- When:Within 1 Month(s) [facility] 02-03-2024 Hospital Discharg e instructions Patient Education 02/03/2024 08:29:12 [...] your health care provider or diet and nutrition teacher (dietitian). This may include: ?Eating fewer calories. [...] provider. Document Revised: 12/21/2021 Document Reviewed: 12/21/2021 [employer] Patient Education 2022 [employer]. Follow Up Care 11/04/2023 08:09:51 With:AURELIO BAJWA FAAFP, Cleveland Santo, DAE, PED Address: [address], [place] [address]- When:Within 1 Month(s) [facility] 01-06-2024 Hospital Discharg e instructions [...] frozen fruits, and frozen vegetables. Avoid buying hwact-qc-udu foods, such as pre-cut fruits and vegetables and pre-made salads. If possible, shop around to discover where you can find the best prices. Consider other retailers such as dollar stores, larger wholesale stores, local fruit and vegetable [employer], and [employer] markets. Do not shop when you are [...] provider. Document Revised: 08/07/2021 Document Reviewed: 08/07/2021 [employer]Net Patient Education 2022 [employer]. Follow Up Care 11/04/2023 08:09:40 With:AURELIO BAJAW FAAFP, Cleveland Santo, DAE, PED Address: [address] [place] [address] [facility] [place] [address]- When:Within 1 Month(s) [facility] 12-06-2023 Hospital Discharg e instructions Patient Education 12/06/2023 08:42:54 [...] including vitamins, herbs, eye drops, creams, and eadu-mjk-sgyvlvp medicines. Any problems you or family members [...] and water are not available, use hand cash specialist. ?Change your dressing as told by your [...] or a bad smell. General instructions Take qxig-lin-dxmqupg and prescription medicines only as told by [...] and water are not available, use hand cash specialist. Contact your health care provider if you have problems or questions. This information is not intended to replace advice given to you by your health care provider. Make sure you discuss any questions you have with your health care provider. Document Revised: 07/16/2022 Document Reviewed: 07/16/2022 [employer] Patient Education 2022 [employer]. Follow Up Care 11/04/2023 08:09:24 With:AURELIO BAJWA FAAFP, DAE Newsome, PED Address: [address] [place] [address] [place] [address] When:Within 1 Month(s) [facility] 11-04-2023 Hospital Discharg e instructions [...] your health care provider or diet and nutrition teacher (dietitian). This may include: ?Eating fewer calories. [...] provider. Document Revised: 12/21/2021 Document Reviewed: 12/21/2021 [employer] Patient Education 2022 [employer]. Follow Up Care 05/03/2023 08:02:20 With:AURELIO BAJWA FAAFP, Cleveland Santo, DAE, PED Address: [address] [place] [address], [facility] [address]- When:Within 1 Month(s) [facility] 05-03-2023 Hospital Discharg e instructions [...] your health care provider or diet and nutrition teacher (dietitian). This may include: ?Eating fewer calories. [...] Document Reviewed: 12/21/2021 Elsevier Patient Education 2022 [employer]. Follow Up Care 01/22/2023 13:52:08 With:AURELIO BAJWA FAAFP, DAE Newsome, PED Address: [place] [address]- When:Within 6 Month(s) [facility] 02-22-2023 Hospital Discharg e instructions [...] frozen fruits, and frozen vegetables. Avoid buying cqmhf-os-dil foods, such as pre-cut fruits and vegetables and pre-made salads. If possible, shop around to discover where you can find the best prices. Consider other retailers such as [employer] stores, larger [employer] stores, local fruit and vegetable [employer], and [employer] markets. Do not shop when you are [...] 06/28/2015 Document Revised: 10/26/2018 Document Reviewed: 10/26/2018 [employer]Net Patient Education 2020 [employer] Inc. Follow Up Care 01/22/2023 13:49:16 With:AURELIO BAJWA FAAFP, DAE Newsome, PED Address: [place] [address]- When:Within 1 Month(s) [facility] 01-22-2023 [facility] Discharg e instructions Patient Education 01/22/2023 [...] your health care provider or diet and nutrition teacher (dietitian). This may include: ?Eating fewer calories. [...] 11/27/2011 Document Revised: 11/07/2018 Document Reviewed: 11/07/2018 [employer]Net Patient Education 2020 [employer]. Follow Up Care 01/21/2023 16:09:28 With:AURELIO BAJWA FAAFP, Cleveland Santo, DAE, PED Address: [place] [address]- When:Within 1 Month(s) [facility] 01-14-2023 Evaluation + Plan note Future Scheduled TestsGlucose Fasting 01/14/23Lipid Panel 01/14/23 [facility] 01-14-2023 Hospital Discharg e instructions [...] frozen fruits, and frozen vegetables. Avoid buying iebdq-bn-qhm foods, such as pre-cut fruits and vegetables and pre-made salads. If possible, shop around to discover where you can find the best prices. Consider other retailers such as [employer] stores, larger wholesale stores, local fruit and vegetable [employer], and [employer] markets. Do not shop when you are [...] 06/28/2015 Document Revised: 10/26/2018 Document Reviewed: 10/26/2018 Coll[employer]Net Patient Education 2020 Coll[employer]Net Inc. Follow Up Care 12/01/2022 10:38:14 With:KAPLE Cleveland BAJWA FAAFP, FAM, PED Address: [place] [address]- When:Within 1 Year(s) [facility] Evaluation + Plan note Future Appointments Appointment Date:02/22/2023 02:40:00 PM Scheduled Provider:Cleveland RAY DO, FAAFP Location:[facility] Appointment Type: Open Appointment Date:03/26/2023 01:20:00 PM Scheduled Provider:Cleveland RAY DO, FAAFP Location:[facility] Appointment Type: Open Appointment Date:04/30/2023 01:20:00 PM Scheduled Provider:Cleveland RAY DO, FAAFP Location:[facility] Appointment Type:[facility] Evaluation + Plan note Future Appointments Appointment Date:03/26/2023 01:20:00 PM Scheduled Provider:Cleveland RAY DO, FAAFP Location:[facility] Appointment Type: Open Appointment Date:04/30/2023 01:20:00 PM Scheduled Provider:Cleveland RAY DO, FAAFP Location:[facility] Appointment Type:[facility] Evaluation + Plan note Future Appointments Appointment Date:11/04/2023 07:40:00 AM Scheduled Provider:Cleveland RAY DO, FAAFP Location:[facility] Appointment Type:[facility] Evaluation + Plan note Future Appointments Appointment Date:12/06/2023 08:20:00 AM Scheduled Provider:Cleveland RAY DO, FAAFP Location:[facility] Appointment Type: Open Appointment Date:01/06/2024 08:20:00 AM Scheduled Provider:Cleveland RAY DO, FAAFP Location:[facility] Appointment Type: Open Appointment Date:02/03/2024 08:00:00 AM Scheduled Provider:Cleveland RAY DO, FAAFP Location:[facility] Appointment Type:[facility] Evaluation + Plan note Future Appointments Appointment Date:01/06/2024 08:20:00 AM Scheduled Provider:Cleveland RAY DO, FAAFP Location:[facility] Appointment Type: Open Appointment Date:02/03/2024 08:00:00 AM Scheduled Provider:Cleveland RAY DO, FAAFP Location:[facility] Appointment Type:[facility] Evaluation + Plan note Future Appointments Appointment Date:02/03/2024 08:00:00 AM Scheduled Provider:Cleveland RAY DO, FAAFP Location:[facility] Appointment Type:[facility] Evaluation + Plan note Future Appointments Appointment Date:03/06/2024 07:40:00 AM Scheduled Provider:Cleveland RAY DO, FAAFP Location:[facility] Appointment Type: Open Appointment Date:03/30/2024 08:20:00 AM Scheduled Provider:Cleveland RAY DO, FAAFP Location:[facility] Appointment Type: Open Appointment Date:05/04/2024 08:20:00 AM Scheduled Provider:Cleveland RAY DO, FAAFP Location:[facility] Appointment Type:[facility] Evaluation + Plan note Future Appointments Appointment Date:03/30/2024 08:20:00 AM Scheduled Provider:Cleveland RAY DO, FAAFP Location:[facility] Appointment Type: Open Appointment Date:05/04/2024 08:20:00 AM Scheduled Provider:Cleveland RAY DO, FAAFP Location:[facility] Appointment Type:[facility] Evaluation + Plan note Future Appointments Appointment Date:05/04/2024 08:20:00 AM Scheduled Provider:Cleveland RAY DO, FAAFP Location:[facility] Appointment Type:[facility] Evaluation note Diagnosis Encounter for repeat Pap smear due to previous insufficient cervical cells [facility] Nexplanon removal documented in this encounter [facility]* Diagnosis Missed menses , unspecified gestational age Encounter for supervision of normal first in first trimester documented in this encounter [facility]* Diagnosis First trimester - Primary state, incidental documented in this encounter [facility]* Diagnosis Second trimester ([facility]) state, incidental 16 weeks gestation of ([facility]) Screening, , for anatomic survey ([facility]) Encounter for anatomic survey documented in this encounter [facility]* Diagnosis Second trimester ([facility]HS-HCC) state, incidental 20 weeks gestation of ([facility]) Encounter for follow-up ultrasound of anatomy ([facility]) documented in this encounter [facility] Narrative No data available for this section [facility] Discharge instructions No data available for this section [facility] No data available for this section [facility] Summary Purpose Family History No Family History Records Found Advance Directives No Advanced Directives Records FoundNo Advanced Directives Records Found Additional Source Comments Patient Care team informatio n (unrecognized section and content) Corporate Associate Attorney Relationship Specialty Start Date End Date Cleveland Ray MD [address] [place] [address] PCP - General Family Medicine 05/27/23 Corporate Associate Attorney Relationship Specialty Start Date End Date Cleveland Ray MD [address] [place] [address] PCP - General Family Medicine 05/27/23 Corporate Associate Attorney Relationship Specialty Start Date End Date Cleveland Ray MD [address] [place] [address] PCP - General Family Medicine 05/27/23 Corporate Associate Attorney Relationship Specialty Start Date End Date Cleveland Ray MD [address] [place] [address] PCP - General Family Medicine 05/27/23 Corporate Associate Attorney Relationship Specialty Start Date End Date Cleveland Ray MD [address] [place] [address] PCP - General Family Medicine 05/27/23 Corporate Associate Attorney Relationship Specialty Start Date End Date Cleveland Ray MD [address] [place] [address] PCP - General [facility] 05/27/23 Corporate Associate Attorney Relationship Specialty Start Date End Date Cleveland Ray MD [address] [place] [address] PCP - General [facility] Medicine 05/27/23 Corporate Associate Attorney Relationship Specialty Start Date End Date Cleveland Ray MD [address] [place] [address] PCP - General Family Medicine 05/27/23 Reason for Visit (unrecogniz ed section and content) Reason Comments Well Women Visit Reason Comments Nexplanon Removal Reason Comments Amenorrhea Reason Comments Routine Visit INFORMATION SOURCE (unrecogn ized section and content) DATE CREATED AUTHOR 01/31/2025 [facility] DATE CREATED AUTHOR AUTHOR'S ORGANIZ ATION 06/07/2025 [facility] dical Specialists EPIC FOR RECORDS PERTAINING TO PATIENTS WHO ARE [...] BE BASED ON THE PRIMARY CLINICAL RECORDS. [facility]. provides no warranty or guarantee of the accuracy or completeness of information in this document.
[2025-07-11 10:08] LABS: Age Gdln ACOG Testing Note (.); IGP, rfx Aptima HPV ASCU Note (.)
== END 2025-07-04 19:44 | disposition home or self-care (01) ==
LOC: LAB 19:43
PROVIDERS: Visit Provider Obstetrics & Gynecology
DX: Z01.419 Encounter for gynecological examination (general) (routine) without abnormal findings (principal)
CPT/HCPCS: 88175

== ENCOUNTER 2025-07-18 07:27 | Outpatient (OUT) | payer BC, SELFPAY ==
--- OUTSIDE RECORDS SUMMARY | 2025-07-04 14:50 | XMS_ITS | Encounter Summary ---
Author Organization [facility] Address [address] [place] [address] Care Team Providers Care Window And Siding Craftsman Name Role Phone Mc Ray MD Primary Care Provider Reason for Visit * Reason Comments Routine Visit Encounter Details Date Type Department Care Team (Latest Contact Info) Description 07/04/2025 2:50 PM EDT Routine [facility] [address] [place] [address] Alexsander Al DO [address] [facility] [address], [place] [phone] Well woman exam with routine gynecological exam; Vaginal discharge; STD exposure; Second trimester ([facility]); 24 weeks gestation of ([facility]); Diabetes mellitus screening Social History Tobacco Use Types Packs/Day Years [...] Sign Reading Time Taken Comments Blood Pressure 114/70 07/04/2025 3:04 PM EDT Pulse - - Temperature - - Respiratory Rate - - Oxygen Saturation - - Inhaled Oxygen Concentration - - Weight 107 kg (235 lb 12.8 oz) 07/04/2025 3:04 P M EDT Height - - Body Mass Index 33.83 05/29/2024 9:13 AM EDT documented in this encounter Progress Notes * Yesenia Pat, ASSOCIATE RELATIONS SPECIALIST - 07/04/2025 2:50 PM EDT Reason for Appointment: Patient ID: Janet Stock is a 24 y.o. female who presents for No chief complaint on file. Patient presents today for Annual Exam., STD Check., and Return OB appointment. MEDICATIONS No current outpatient [...] appearance. She is well-developed. Genitourinary: Vulva normal. Breasts: Breasts are soft. Right: Normal. Left: Normal. Cardiovascular: Rate and Rhythm: Normal rate and [...] nursing note reviewed. Exam conducted with a final finisher forging dies present. Vitals: Estimated body mass index is 33.83 kg/m?? as calculated from the following: Height as of 05/29/24: 5' 10 . Weight as of this encounter: 235 lb 12.8 oz. BP: 114/70 Patient's last menstrual period was 01/04/2025. ASSESSMENT & PLAN ICD-10-CM 1. Well woman exam with routine gynecological exam Z01.419 2. Vaginal discharge N89.8 3. STD exposure Z20.2 4. Second trimester ([facility]) Z34.92 POCT urinalysis dipstick manually resulted 5. 24 weeks gestation of ([facility]) Z3A.24 POCT urinalysis dipstick manually resulted Return OB/Annual Exam: Patient presents today for a annual exam/routine obstetrics appointment. Patient is currently [id number]. Patient states she is doing well but has complaints of nausea in the morning. Pap and cultures was obtained without difficulty and patient was given orders for glucola and cbc Orders Placed This Encounter Procedures POCT urinalysis dipstick manually resulted Follow Up: Patient is to schedule annual exam for next year and return to office in 4 weeks for OB appointment. Documented by Yesenia Pat LPN on behalf of: Alexsander Al DO documented in this encounter Plan of Treatment Upcoming Encounters Date Type Department Care Team (Late st Contact Info) Description 08/01/2025 3:00 PM EDT Routine [facility] [address] [place] [address] Gabby Contreras PA [address] [facility] [place] [address] Scheduled Orders Name Type Priority Associated Diagnoses Orde r Schedule CBC Lab Routine Diabetes mellitus screening Expected: 07/04/2025 (Approximate), Expires: 07/04/2026 Glucose tolerance, 1 hour Lab Routine Diabetes mellitus screening Expected: 07/04/2025 (Approximate), Expires: 07/04/2026 Pap Smear Pathology and Cytology Routine Well woman exam with routine gynecological exam Ordered: 07/04/2025 documented as of this encounter Procedures Procedure Name Priority Date/Time Associated Diagnosis Comments POCT URINALYSIS DIPSTICK Routine 07/04/2025 3:14 PM EDT Second trimester ([facility]) 24 weeks gestation of ([facility]) documented in this encounter Results * (ABNORMAL) POCT urinalysis dipstick manually resulted (07/04/2025 3:14 PM EDT) Color, UA Yellow Clarity, UA Clear Glucose, UA Negative Negative - 2000(110) ++++ mg/dL Bilirubin, UA Negative Negative - 4(70) +++ mg/dL Ketones, UA Negative Negative - 160(16) ++++ mg/dL Spec Grav, UA 1.015 1 - 1.03 Blood, UA Negative Negative - 50 Ming/mcL pH, UA 6.0 5 - 9 Protein, UA Negative Negative - 2000(20) ++++ mg/dL Urobilinogen, UA 1.0 0.2 - 12 mg/dL Leukocytes, UA Positive Negative - 500+++ Manpreet/mcL Nitrite, UA Negative Negative - Positive Urine 07/04/2025 3:14 PM EDT [facility] [place] DO POINT OF CARE TEST ENTER/EDIT OR DERABLES Final Result documented in this encounter Visit Diagnoses Diagnosis Well woman exam with routine gynecological exam Routine gynecological examination Vaginal discharge Leukorrhea, not specified as infective STD exposure Second trimester ([facility]) state, incidental 24 weeks gestation of ([facility]) Diabetes mellitus screening Screening for diabetes mellitus documented in this encounter Care Teams Window And Siding Craftsman Relationship Specialty Start Date End Date Mc Ray MD [address] [place] [address] [facility] [place] [address] PCP - General Family Medicine 05/27/23 documented as of this encounter
--- OUTSIDE RECORDS SUMMARY | 2025-07-18 07:30 | XMS_ITS | Encounter Summary ---
Author Organization [facility] Address [address] [place] [address] Care Team Providers Care Supervisor Abattoir Name Role Phone Mc Ray MD Primary Care Provider [phone] Encounter Details Date Type Department Care Team (Late st Contact Info) Description 07/04/2025 Clinisync Result Encounter N[facility]S External Department Unsolicited Alexsander Al DO [address] [facility] [address] Remi Faria, [facility]11 Social History Tobacco Use Types Packs/Day [...] 08/01/2025 3:00 PM EDT Routine [facility] Bienvenido OBALISON [address] [facility] [place] [address] Gabby Contreras PA [address] [facility] [address] [place], [facility] documented as of this encounter Procedures Procedure Name Priority Date/Time Associated Diagnosis Comments IGP,APTIMA HPV,AGE GDLN Routine 07/04/2025 2:52 PM EDT documented in this encounter Results * IGP,APTIMA HPV,AGE GDLN (07/04/2025 2:52 PM EDT) AGE GDLN ACOG TESTING Note . [facility] Comment: TESTS RESULT FLAG UNITS REF RANGE LAB Clinician Provided Cytology Information Source.............Vagina Other.............. No. of containers..01 ThinPrep Vial Age Algo ACOG Sherice... FLAG LEGEND: L-Low Normal,H-High Normal,LL-Alert Low,HH-Alert High <-Panic Low,>-Panic High,A-Abnormal,AA-Critical Abnormal Performed at: 01 [address] [place] [address] Gabi Graves MD, IGP, RFX APTIMA HPV ASCU Note . [facility] Comment: TESTS RESULT FLAG UNITS REF RANGE LAB DIAGNOSIS: 02 NEGATIVE FOR INTRAEPITHELIAL LESION OR MALIGNANCY. Specimen adequacy: 02 Satisfactory for evaluation. No endocervical component is identified. An endocervical component is not commonly seen in the patient. Performed by: Pablo Piper Swamper ([facility]) . 02 Note: Note 02 The Pap smear is a screening test designed to aid in the detection of premalignant and malignant conditions of the uterine cervix. It is not a diagnostic procedure and should not be used as the sole means of detecting cervical cancer. Both false-positive and false-negative reports do occur. Test Methodology: Note 02 This liquid based ThinPrep(R) pap test was screened with the use of an image guided system. . 02 The HPV DNA reflex criteria were not met with this specimen result therefore, no HPV testing was performed. FLAG LEGEND: L-Low Normal,H-High Normal,LL-Alert Low,HH-Alert High <-Panic Low,>-Panic High,A-Abnormal,AA-Critical Abnormal Performed at: [address] [address] Gabi Graves MD, Performed at: = - [address] [id number] Psychopaedic Nurse: Gabi Graves MD, Phone: [phone] Performed at: [address] [id number] Psychopaedic Nurse: Gabi Graves MD, Phone: [phone] 07/04/2025 2:52 PM EDT 07/04/2025 8:20 PM EDT Narrative [facility] - 07/11/2025 10:08 AM EDT SPATULA-ALONE VAGINA us Alexsander Servando DO LAB BLOOD ORDERABLES Final Resul t [facility] documented in this encounter Visit Diagnoses Not on filedocumented in this encounter Care Teams Supervisor Abattoir Relationship Specialty Start Date End Date Mc Ray MD [address] [place] [address] PCP - General Family Medicine 05/27/23 documented as of this encounter
--- OUTSIDE RECORDS SUMMARY | 2025-07-18 07:30 | XMS_ITS | Encounter Summary ---
Author Organization [facility] Address [address] [place] [address] Care Team Providers Care Animation Artist Name Role Phone Mc Ray MD Primary Care Provider [phone] Encounter Details Date Type Department Care Team (Late st Contact Info) Description 03/28/2025 Abstract [facility] [address] [place] [address] [place] [address] Alexsander Al DO [address] [facility] [address] Remi Faria, [place] [address] Social History Tobacco Use Types Packs/Day Years [...] Info) Description 08/01/2025 3:00 PM EDT Routine ALEX SHIELDS [address] [facility] [place] [place] [address] Gabby Contreras PA [address] [place], [place] [id number] documented as of this encounter Visit Diagnoses Not on filedocumented in this encounter Care Teams Animation Artist Relationship Specialty Start Date End Date Mc Ray MD [address] [facility] [place] [address] PCP - General Family Medicine 05/27/23 documented as of this encounter
--- OUTSIDE RECORDS SUMMARY | 2025-07-18 07:30 | XMS_ITS | Encounter Summary ---
Author Organization [facility] Address [address] [place] [address] Care Team Providers Care Landfill Grader Name Role Phone Mc Ray MD Primary Care Provider Encounter Details Date Type Department Care Team (Late st Contact Info) Description 07/06/2025 Telephone [facility] Bienvenido LEGYKaren [address] [place] [address] Alexsander Al DO [address] [place] Remi Faria, [facility]11 Social History Tobacco Use Types Packs/Day [...] Telephone Encounter - Elise Jain LPN - 07/06/2025 8:48 AM EDT Patient was called and she was made aware of culture results and that a script would be sent into the pharmacy for her. PVU documented in this encounter Plan of Treatment Upcoming Encounters Date Type Department Care Team (Late st Contact Info) Description 08/01/2025 3:00 PM EDT Routine [facility] Bienvenido OBALISON [address] [facility] [place] [address] Gabby Contreras PA [address] [facility] [place] [address] documented as of this encounter Visit Diagnoses Diagnosis BV (bacterial vaginosis) Unspecified vaginitis and vulvovaginitis documented in this encounter Care Teams Landfill Grader Relationship Specialty Start Date End Date Mc Ray MD [address] [place] [address] PCP - General Family Medicine 05/27/23 documented as of this encounter
--- OUTSIDE RECORDS SUMMARY | 2025-07-18 07:30 | XMS_ITS | Encounter Summary ---
Author Organization [facility] Address [address] [place] [address] Care Team Providers Care Multiple Pressure Riveter Operator Name Role Phone Mc Ray MD Primary Care Provider Encounter Details Date Type Department Care Team (Late Contact Info) Description 06/06/2024 Abstract [facility]ELDS [address] [place] [address] [place] [phone] Gabby Contreras PA [address] [facility] [address] [place], [place] [address] Social History Tobacco Use Types Packs/Day Years Used Date Smoking Tobacco: Never Alcohol Use Standard Drinks/Week Comments Yes 0 (1 standard drink = 0.6 oz pure alcohol) Alcohol: monthly or less. Caffeine: none Comments Unknown Sex and Gender Information Value Date Recorded Sex Assigned at Not on file Legal Sex Female 8:15 PM EDT Gender Identity Not on file Sexual Orientation Not on file documented as of this encounter Plan of Treatment Upcoming Encounters Date Type Department Care Team (Late st Contact Info) Description 08/01/2025 3:00 PM EDT Routine [facility]LEX SHIELDS [address] [place] [address] [place] [phone] Gabby Contreras PA [address] [facility] [address] [place], [place] [id number] documented as of this encounter Visit Diagnoses Not on filedocumented in this encounter Care Teams Multiple Pressure Riveter Operator Relationship Specialty Start Date End Date Mc Ray MD [address] [facility] [place] [address] PCP - General Family Medicine 05/27/23 documented as of this encounter
--- OUTSIDE RECORDS SUMMARY | 2025-07-18 07:30 | XMS_ITS | Encounter Summary ---
Author Organization [facility] Address [address] [place] [address] Care Team Providers Care Strip Deburrer Name Role Phone Mc Ray MD Primary Care Provider [phone] Encounter Details Date Type Department Care Team (Late st Contact Info) Description 03/19/2025 Abstract [facility]LEX SHIELDS [address] [place] [address] [place] [address] Alexsander Al DO [address] [facility] [address] Rem[address] [place], [place] [address] Social History Tobacco Use Types Packs/Day Years [...] 3:00 PM EDT Routine ALEX SHIELDS [address] [facility] [place] [address] Gabby Contreras PA [address] [place] [address] [place], [place] [id number] documented as of this encounter Visit Diagnoses Not on filedocumented in this encounter Care Teams Strip Deburrer Relationship Specialty Start Date End Date Mc Ray MD [address] [facility] [place] [address] PCP - General Family Medicine 05/27/23 documented as of this encounter
--- OUTSIDE RECORDS SUMMARY | 2025-07-18 07:30 | XMS_ITS | Encounter Summary ---
Author Organization [facility] Address [address] [place] [address] Care Team Providers Care Boating Safety Officer Name Role Phone Mc Ray MD Primary Care Provider Encounter Details Date Type Department Care Team (Late st Contact Info) Description 07/04/2025 External Result Encounter NOMS External Department Unsolicited Alexsander Al DO [address] [facility] [address] Remi Faria, [facility] Social History Tobacco Use Types Packs/Day [...] 08/01/2025 3:00 PM EDT Routine [facility] Bienvenido OBGYKaren [address] [facility] [address] Gabby Contreras PA [address] [facility] [place] [address] documented as of this encounter Procedures Procedure Name Priority Date/Time Associated Diagnosis Comments RECURRENT VAGINITIS (HTRX) Routine 07/04/2025 4:16 PM EDT documented in this encounter Results * (ABNORMAL) RECURRENT VAGINITIS (HTRX) (07/04/2025 4:16 PM EDT) [facility] ATOPOBIUM VAGINAE 19.164(A) 19.961 - 24.689 ppm 07/06/2025 5:46 AM EDT [facility] ATOPOBIUM VAGINAE Detected(A) 19.961 - 24.689 ppm 07/06/2025 5:46 AM EDT [facility] BVAB 2,3 (BACTERIAL VAGINOSIS ASSOCIATED BACTERIA 2, 3); MOBILUNCUS SPP 0 19.961 - 24.689 ppm 07/06/2025 5:46 AM EDT [facility] BVAB 2,3 (BACTERIAL VAGINOSIS ASSOCIATED BACTERIA 2, 3); MOBILUNCUS SPP Not Detected 19.961 - 24.689 ppm 07/06/2025 5:46 AM EDT [facility] IGOR ALBICANS, PARAPSILOSIS, TROPICALIS 0 23.000 - 30.347 ppm 07/06/2025 5:46 AM EDT [facility] IGOR ALBICANS, PARAPSILOSIS, TROPICALIS Not Detected 23.000 - 30.347 ppm 07/06/2025 5:46 AM EDT [facility] IGOR GLABRATA 0 23.000 - 31.618 ppm 07/06/2025 5:46 AM EDT [facility] IGOR GLABRATA Not Detected 23.000 - 31.618 ppm 07/06/2025 5:46 AM EDT [facility] IGOR KRUSEI 0 23.000 - 30.873 ppm 07/06/2025 5:46 AM EDT [facility] IGOR KRUSEI Not Detected 23.000 - 30.873 ppm 07/06/2025 5:46 AM EDT [facility] CHLAMYDIA TRACHOMATIS 0 23.000 - 31.586 ppm 07/06/2025 5:46 AM EDT [facility] CHLAMYDIA TRACHOMATIS Not Detected 23.000 - 31.586 ppm 07/06/2025 5:46 AM EDT [facility] GARDNERELLA VAGINALIS 15.73(A) 19.961 - 24.689 ppm 07/06/2025 5:46 AM EDT [facility] GARDNERELLA VAGINALIS Detected(A) 19.961 - 24.689 ppm 07/06/2025 5:46 AM EDT [facility] MEGASPHAERA (TYPES 1, 2) 14.97(A) 19.961 - 24.689 ppm 07/06/2025 5:46 AM EDT [facility] MEGASPHAERA (TYPES 1, 2) Detected(A) 19.961 - 24.689 ppm 07/06/2025 5:46 AM EDT [facility] NEISSERIA GONORRHOEAE 0 23.000 - 32.587 ppm 07/06/2025 5:46 AM EDT [facility] NEISSERIA GONORRHOEAE Not Detected 23.000 - 32.587 ppm 07/06/2025 5:46 AM EDT [facility] TRICHOMONAS VAGINALIS 0 23.000 - 31.995 ppm 07/06/2025 5:46 AM EDT [facility] TRICHOMONAS VAGINALIS Not Detected 23.000 - 31.995 ppm 07/06/2025 5:46 AM EDT [facility] MYCOPLASMA GENITALIUM 0 19.961 - 24.689 ppm 07/06/2025 5:46 AM EDT [facility] MYCOPLASMA GENITALIUM Not Detected 19.961 - 24.689 ppm 07/06/2025 5:46 AM EDT [facility] ERMB, C; MEFA 23.066(A) 23.000 - 27.500 ppm 07/06/2025 5:46 AM EDT [facility] ERMB, C; MEFA Detected(A) 23.000 - 27.500 ppm 07/06/2025 5:46 AM EDT [facility] TET B, TET M 24.724(A) 23.000 - 27.500 ppm 07/06/2025 5:46 AM EDT [facility] TET B, TET M Detected(A) 23.000 - 27.500 ppm 07/06/2025 5:46 AM EDT [facility] 07/04/2025 4:16 PM EDT 07/06/2025 1:15 AM EDT us Alexsander Al DO LAB BLOOD ORDERABLES Final Resul t [facility] [address] [place] [address] documented in this encounter Visit Diagnoses Not on filedocumented in this encounter Care Teams Boating Safety Officer Relationship Specialty Start Date End Date Mc Ray MD [address] [place] [address] PCP - General Family Medicine 05/27/23 documented as of this encounter
--- OUTSIDE RECORDS SUMMARY | 2025-07-18 07:30 | XMS_ITS | Encounter Summary ---
Author Organization [facility] Address [address] [place] [address] Care Team Providers Care Commodity Lead Name Role Phone Mc Ray MD Primary Care Provider [phone] Encounter Details Date Type Department Care Team (Late st Contact Info) Description 03/26/2025 Abstract [facility] SHIELDS [address] [facility] [place] [address] Alexsander Al DO [address] [facility] [address] Rem[address] [place], [place] [address] Social History Tobacco Use Types Packs/Day Years [...] 3:00 PM EDT Routine [facility]LEX SHIELDS [address] [facility] [place] [address] Gabby Contreras PA [address] [place], [place] [id number] documented as of this encounter Visit Diagnoses Not on filedocumented in this encounter Care Teams Commodity Lead Relationship Specialty Start Date End Date Mc Ray MD [address] [place] [address] PCP - General Family Medicine 05/27/23 documented as of this encounter
--- OUTSIDE RECORDS SUMMARY | 2025-07-18 07:30 | XMS_ITS | Encounter Summary ---
Author Organization [facility] Address [address] [place] [address] Care Team Providers Care Felting Machine Operator Helper Name Role Phone Mc Ray MD Primary Care Provider Encounter Details Date Type Department Care Team (Late st Contact Info) Description 07/13/2024 Orders Only [facility]LEX SHIELDS [address] [place] [address] [place] [address] Elise Jain LPN [address] [facility] [address], [place] [address] Social History Tobacco Use Types Packs/Day Years [...] Info) Description 08/01/2025 3:00 PM EDT Routine NOMBambi SHIELDS [address] [facility] [place] [address] Gabby Contreras PA [address] [facility] [address] [place], [facility] documented as of this encounter Procedures Procedure [...] on filedocumented in this encounter Care Teams Felting Machine Operator Helper Relationship Specialty Start Date End Date Mc Ray MD [address] [place] [address] PCP - General Family Medicine 05/27/23 documented as of this encounter
--- OUTSIDE RECORDS SUMMARY | 2025-07-18 07:30 | XMS_ITS | Encounter Summary ---
Author Organization [facility] Address [address] [place] [address] Care Team Providers Care Patient Services Assistant Name Role Phone Mc Ray MD Primary Care Provider Encounter Details Date Type Department Care Team (Late st Contact Info) Description 07/12/2025 Orders Only NOMBambi SHIELDS [address] [place] [address] [place] [address] Jacinda Storm LPN [address] [place] [address] Social History Tobacco Use Types Packs/Day Years [...] 08/01/2025 3:00 PM EDT Routine [facility] Bienvenido SHIELDS [address] [place] [address] [place] [address] Gabby Contreras PA [address] [facility] [place] [address] documented as of this encounter Procedures Procedure Name Priority Date/Time Associated Diagnosis Comments PAP SMEAR Routine 07/04/2025 12:00 AM EDT documented in this encounter Results * Pap Smear (07/04/2025 12:00 AM EDT) Swab Cervical swab / Unknown us Alexsander Servando DO LAB CYTOLOGY ORDERABLES Final Re sult [facility] documented in this encounter Visit Diagnoses Not on filedocumented in this encounter Care Teams Patient Services Assistant Relationship Specialty Start Date End Date Mc Ray MD [address] [place] [address] PCP - General Family Medicine 05/27/23 documented as of this encounter
--- OUTSIDE RECORDS SUMMARY | 2025-07-18 07:30 | XMS_ITS | Encounter Summary ---
Author Organization [facility] Address [address] [place] [address] Care Team Providers Care Oracle Reports Developer Name Role Phone Mc Ray MD Primary Care Provider Encounter Details Date Type Department Care Team (Late st Contact Info) Description 07/13/2024 Abstract [facility]LEX SHIELDS [address] [facility] [place] [address] Alexsander Al DO [address] [facility] [address], [place] [address] Social History Tobacco Use Types Packs/Day Years [...] 3:00 PM EDT Routine ALEX SHIELDS [address] [facility] [place] [address] Gabby Contreras PA [address] [facility] [address] [place], [facility] documented as of this encounter Visit Diagnoses Not on filedocumented in this encounter Care Teams Oracle Reports Developer Relationship Specialty Start Date End Date Mc Ray MD [address] [place] [address] PCP - General Family Medicine 05/27/23 documented as of this encounter
--- OUTSIDE RECORDS SUMMARY | 2025-07-18 07:30 | XMS_ITS | Encounter Summary ---
Author Organization [facility] Address [address] [place] [address] Care Team Providers Care Vulcanizer Rubber Plate Name Role Phone Mc Ray MD Primary Care Provider Encounter Details Date Type Department Care Team (Late st Contact Info) Description 07/04/2025 Bamboo flowsheet [facility]ELDS [address] [place] [address] Alexsander Al DO [address] [facility] [address], [place] [address] Social History Tobacco Use Types Packs/Day Years [...] 3:00 PM EDT Routine [facility]LEX SHIELDS [address] [place] [address] Gabby Contreras PA [address] [place] [address] [place], [facility] documented as of this encounter Visit Diagnoses Not on filedocumented in this encounter Care Teams Vulcanizer Rubber Plate Relationship Specialty Start Date End Date Mc Ray MD [address] [facility] [place] [address] PCP - General Family Medicine 05/27/23 documented as of this encounter
--- OUTSIDE RECORDS SUMMARY | 2025-07-18 07:31 | XMS_ITS | Clinical Summary ---
Author Organization [facility] Address [address] [place] [address] Care Team Providers Care Solar Energy Specialist Name Role Phone Cleveland Ray MD Primary Care Provider [phone] Allergies No known active allergies Medications metroNIDAZOLE (Flagyl) 500 MG tabletIndicatio ns:BV (bacterial vaginosis) Take 1 tablet (500 mg) by mouth in the morning and 1 tablet (500 mg) before bedtime. Do all this for 7 days. Do not drink alcohol while taking this medication. 14 tablet 07/06/2025 07/13/20 25 Encounters Date Type Department Care Team Description 07/12/2025 [place] [address] Jacinda Storm LPN 07/06/2025 [place] [address] Jessie Al DO 07/04/2025 2:50 PM EDT [place] [address] Jessie Al DO Well woman exam with routine gynecological exam; Vaginal discharge; STD exposure; Second trimester ([facility]); 24 weeks gestation of ([facility]); Diabetes mellitus screening 07/04/2025 Clinisync Result Encounter [facility] External Department Unsolicited Jessie Al, DO 07/04/2025 External Result Encounter [facility] External Department Unsolicited Jessie Al, DO 07/04/2025 Bamboo flowsheet [facility] [address] [place] [address] Jessie Al, DO 06/13/2025 Clinisync Result Encounter NOMS External Department Unsolicited Jessie Al, DO 06/06/2025 Telephone [facility] [place] [address] Jessie Al, DO 06/05/2025 2:30 PM EDT Routine [facility] [place] [address] Gabby Contreras PA Second trimester ([facility]); 20 weeks gestation of ([facility]); Encounter for follow-up ultrasound of anatomy ([facility]) 06/05/2025 Bamboo flowsheet [facility] [address] [place] [address] Gabby Contreras PA 06/04/2025 Clinisync Result Encounter [facility]OMS External Department Unsolicited Jessie Al, DO 06/04/2025 Clinisync Result Encounter NOMS External Department Unsolicited Jessie Al, DO 05/21/2025 Clinisync Result Encounter NOMS External Department Unsolicited Jessie Al, DO 05/08/2025 9:10 AM EDT Routine [facility] [place] [address] Jessie Al, DO Second trimester ([facility]); 16 weeks gestation of ([facility]); Screening, , for anatomic survey ([facility]) 05/08/2025 Bamboo flowsheet [facility] [address] [place] [address] ServandoJessie templeton DO 05/05/2025 Travel from Last 3 Months Family History Medical [...] oz) 07/04/2025 3:04 P M EDT Height 177.8 cm (5' 10 ) 05/29/2024 9:13 AM EDT Body Mass Index 33.83 05/29/2024 9:13 AM EDT Plan of Treatment Upcoming Encounters Date Type Department Care Team (Late st Contact Info) Description 08/01/2025 3:00 PM EDT Routine [facility] [address] [phone] Gabby Contreras PA [address] [place] [address] Procedures Procedure Name Priority Date/Time Associated Diagnosis Comments RECURRENT VAGINITIS (HTRX) Routine 07/04/2025 4:16 PM EDT POCT URINALYSIS DIPSTICK Routine 07/04/2025 3:14 PM EDT Second trimester ([facility]) 24 weeks gestation of ([facility]) IGP,APTIMA HPV,AGE GDLN Routine 07/04/2025 2:52 PM EDT PAP SMEAR Routine 07/04/2025 12:00 AM EDT US OB INCOMPLETE ANATOMY 06/13/2025 9:20 AM EDT US OB CERVICAL LENGTH 06/04/2025 9:22 PM EDT US OB ANATOMY 06/04/2025 9:22 PM EDT AFP, SERUM, OPEN SPINA BIFIDA Routine 05/21/2025 8:39 AM EDT POCT URINALYSIS DIPSTICK Routine 05/08/2025 9:41 AM EDT Second trimester ([facility]) 16 weeks gestation of ([facility]) from Last 3 Months Results * (ABNORMAL) RECURRENT VAGINITIS (HTRX) (07/04/2025 4:16 PM EDT) [facility] ATOPOBIUM VAGINAE 19.164(A) 19.961 - 24.689 ppm 07/06/2025 5:46 AM EDT [facility] ATOPOBIUM VAGINAE Detected(A) 19.961 - 24.689 ppm 07/06/2025 5:46 AM EDT [facility] BVAB 2,3 (BACTERIAL VAGINOSIS ASSOCIATED BACTERIA 2, 3); MOBILUNCUS SPP 0 19.961 - 24.689 ppm 07/06/2025 5:46 AM EDT [facility] BVAB 2,3 (BACTERIAL VAGINOSIS ASSOCIATED BACTERIA 2, 3); MOBILUNCUS SPP Not Detected 19.961 - 24.689 ppm 07/06/2025 5:46 AM EDT [facility] IGOR ALBICANS, PARAPSILOSIS, TROPICALIS 0 23.000 - 30.347 ppm 07/06/2025 5:46 AM EDT [facility] IGOR ALBICANS, PARAPSILOSIS, TROPICALIS Not Detected 23.000 - 30.347 ppm 07/06/2025 5:46 AM EDT [facility] IGOR GLABRATA 0 23.000 - 31.618 ppm 07/06/2025 5:46 AM EDT [facility] IGOR GLABRATA Not Detected 23.000 - 31.618 ppm 07/06/2025 5:46 AM EDT [facility] IGOR KRUSEI 0 23.000 - 30.873 ppm 07/06/2025 5:46 AM EDT [facility] IGOR KRUSEI Not Detected 23.000 - 30.873 ppm 07/06/2025 5:46 AM EDT [facility] CHLAMYDIA TRACHOMATIS 0 23.000 - 31.586 ppm 07/06/2025 5:46 AM EDT [facility] CHLAMYDIA TRACHOMATIS Not Detected 23.000 - 31.586 ppm 07/06/2025 5:46 AM EDT [facility] GARDNERELLA VAGINALIS 15.73(A) 19.961 - 24.689 ppm 07/06/2025 5:46 AM EDT [facility] GARDNERELLA VAGINALIS Detected(A) 19.961 - 24.689 ppm 07/06/2025 5:46 AM EDT [facility] MEGASPHAERA (TYPES 1, 2) 14.97(A) 19.961 - 24.689 ppm 07/06/2025 5:46 AM EDT [facility] MEGASPHAERA (TYPES 1, 2) Detected(A) 19.961 - 24.689 ppm 07/06/2025 5:46 AM EDT [facility] NEISSERIA GONORRHOEAE 0 23.000 - 32.587 ppm 07/06/2025 5:46 AM EDT [facility] NEISSERIA GONORRHOEAE Not Detected 23.000 - 32.587 ppm 07/06/2025 5:46 AM EDT [facility] TRICHOMONAS VAGINALIS 0 23.000 - 31.995 ppm 07/06/2025 5:46 AM EDT [facility] TRICHOMONAS VAGINALIS Not Detected 23.000 - 31.995 ppm 07/06/2025 5:46 AM EDT [facility] MYCOPLASMA GENITALIUM 0 19.961 - 24.689 ppm 07/06/2025 5:46 AM EDT [facility] MYCOPLASMA GENITALIUM Not Detected 19.961 - 24.689 ppm 07/06/2025 5:46 AM EDT [facility] ERMB, C; MEFA 23.066(A) 23.000 - 27.500 ppm 07/06/2025 5:46 AM EDT [facility] ERMB, C; MEFA Detected(A) 23.000 - 27.500 ppm 07/06/2025 5:46 AM EDT [facility] TET B, TET M 24.724(A) 23.000 - 27.500 ppm 07/06/2025 5:46 AM EDT [facility] TET B, TET M Detected(A) 23.000 - 27.500 ppm 07/06/2025 5:46 AM EDT [facility] Tissue 07/04/2025 4:16 PM EDT 07/06/2025 1:15 AM EDT us Jessie Al DO LAB BLOOD ORDERABLES Final Resul t [facility] [address] [place] [address] * (ABNORMAL) POCT urinalysis dipstick manually resulted (07/04/2025 3:14 PM EDT) Only the most recent of2 resultswithin the time period is included. Color, UA Yellow Clarity, UA Clear Glucose, UA Negative Negative - 1999(110) ++++ mg/dL Bilirubin, UA Negative Negative - [...] - Positive Urine 07/04/2025 3:14 PM EDT Jessie Al DO POINT OF CARE TEST ENTER/EDIT OR DERABLES Final Result * IGP,APTIMA HPV,AGE GDLN (07/04/2025 2:52 PM EDT) AGE GDLN ACOG TESTING Note . [facility] Comment: TESTS RESULT FLAG UNITS REF RANGE LAB Clinician Provided Cytology Information Source.............Vagina Other.............. No. of containers..01 ThinPrep Vial Age Algo ACOG Sherice... - 01 FLAG LEGEND: L-Low Normal,H-High Normal,LL-Alert Low,HH-Alert High <-Panic Low,>-Panic High,A-Abnormal,AA-Critical Abnormal Performed at: 01 =G [facility] [place] [address] Gabi Graves MD, IGP, RFX APTIMA HPV ASCU Note . [facility] Comment: TESTS RESULT FLAG UNITS REF RANGE LAB DIAGNOSIS: 02 NEGATIVE FOR INTRAEPITHELIAL LESION OR MALIGNANCY. Specimen adequacy: 02 Satisfactory for evaluation. No endocervical component is identified. An endocervical component is not commonly seen in the patient. Performed by: 02 Josefina Piper Chiller Tender ([facility]) . 02 Note: Note 02 The Pap [...] <-Panic Low,>-Panic High,A-Abnormal,AA-Critical Abnormal Performed at: [address] [place] [address] Gabi Graves MD, Performed at: = - [facility] [address], [place] [id number] Marine Steam Fitter: Gabi Graves MD, Phone: [phone] Performed at: [facility] [id number] Marine Steam Fitter: Gabi Graves MD, Phone: [phone] 07/04/2025 2:52 PM EDT 07/04/2025 8:20 PM EDT Narrative [facility] - 07/11/2025 10:08 AM EDT SPATULA-ALONE VAGINA us Jessie Servando DO LAB BLOOD ORDERABLES Final Resul t [facility] * Pap Smear (07/04/2025 12:00 AM EDT) Swab Cervical swab / Unknown us Jessie Servando DO LAB CYTOLOGY ORDERABLES Final Re sult EXTERNAL LAB * US OB INCOMPLETE ANATOMY (06/13/2025 9:20 AM EDT) Anatomical Region Laterality Modality Other 06/13/2025 9:20 AM EDT Narrative 06/13/2025 9:23 AM EDT The [address] [address] Ultrasound Report Signed Patient: ALEJO OVERTON MR#: [id number] : 2000 Acct:[id number] Age/Sex: 24 / F ADM Date: 06/12/25 Loc: US Attending Dr: Jessie Al D.O. Ordering Physician: Jsesie Al D.O. Date of Service: 06/12/25 Procedure(s): US OB incomplete anatomy Accession Number(s): [id number] cc: Jessie Al D.O.; Physician,Non-Staff Barbara The [address] [address] Patient Name: ALEJO OVERTON MRN: [id number] date: 2000 Sex: F Assigned Patient Location: US Current Patient Location: Accession/Order Number: [id number] Exam Date: 06/13/2025 09:05 Report Date: 06/13/2025 [...] Jr., D.O. 06/13/2025 9:20 AM Dictation Location: [place] [address] Electronically authenticated by: [id number] Y Date: 06/13/2025 09:20 Dictated By: Juan Francisco Abel M.D. Signed By: 06/13/25922 DD/ 9 TD/TT: Vocational Instructor: Procedure Note Radiology, Radiologist, MD - 06/13/2025 [place] [address] Ultrasound Report Signed Patient: ALEJO OVERTON MMR#: [id number] : 2000Acct:[id number] Age/Sex: 24 / FADM Date: 06/12/25 Loc: US Attending Dr: Jessie Al D.O. Ordering Physician: Jessie Al D.O. Date of Service: 06/12/25 Procedure(s): US OB incomplete anatomy Accession Number(s): [id number] cc: Jessie Al D.O.; Physician,Non-Staff Barbara The [address] [address] Patient Name: ALEJO OVERTON MRN: [id number] date: 2000 Sex: F Assigned Patient Location: US Current Patient Location: Accession/Order Number: [id number] Exam Date: 06/13/2025 09:05 Report Date: 06/13/2025 09:20 At the request of: JESSIE AL DO Procedure: US OB incomplete anatomy OB ultrasound. Reason for exam: Follow-up anatomy. COMPARISON: Ultrasound 05/27/2025. TECHNIQUE: Transabdominal imaging of the gravid uterus was obtained. FINDINGS: Limited OB ultrasound demonstrates all 4 extremities arevisualized on today's study. The spine appears intact with limited visualization ofthe sacrum/coccyx. heart rate 143 bpm. US/US OB incomplete anatomy Impression: All 4 extremities were visualized. The majority of the spine was visualized and appears intact with limited visualization of the sacrum/coccyx. If this is of clinical concern,repeat ultrasound in one week is suggested. Impression dictated by: Juan Francisco Abel Jr., D.O. 06/13/2025 9:20 AM Dictation Location: [place] [address] Electronically authenticated by: [id number] Y Date: 509:20 Dictated By: Juan Francisco Abel M.D. Signed By:06/13/25922 DD/ 9 TD/TT: Vocational Instructor: us Jessie Al DO [facility] IMAGING Final Result * US OB CERVICAL LENGTH (06/04/2025 9:22 PM EDT) Anatomical Region Laterality Modality Other 06/04/2025 9:22 PM EDT Narrative 06/04/2025 9:25 [place] [address] Ultrasound Report Signed Patient: ALEJO OVERTON MR#: [id number] : 2000 Acct:[id number] Age/Sex: 24 / F ADM Date: 06/04/25 Loc: US Attending Dr: Jessie Al D.O. Ordering Physician: Jessie Al D.O. Date of Service: 06/04/25 Procedure(s): US OB cervical length Accession Number(s): [id number] cc: Jessie Al D.O.; [place] The [place] [id number] Patient Name: ALEJO OVERTON MRN: [facility]:[id number] date: 2000 Sex: F Assigned Patient Location: US Current Patient Location: Accession/Order Number: [id number] Exam Date: 06/04/2025 21:13 Report Date: 06/04/2025 21:22 At the request of: JESSEI AL DO Procedure: US OB cervical length [...] Jr., D.O. 06/04/2025 9:22 PM Dictation Location: [place] [address] Electronically authenticated by: [id number] Y Date: 06/04/2025 21:22 Dictated By: Juan Francisco Abel M.D. Signed By: 06/04/252124 DD/ 21 TD/TT: Vocational Instructor: Procedure Note Radiology, Radiologist, - 06/04/[address] [address] Ultrasound Report Signed Patient: ALEJO OVERTON MMR#: [id number] : 2000Acct:[id number] Age/Sex: 24 / FADM Date: 06/04/25 Loc: US Attending Dr: Jessie Al D.O. Ordering Physician: Jessie Al D.O. Date of Service: 06/04/25 Procedure(s): US OB cervical length Accession Number(s): [id number] cc: Jessie Al D.O.; [place] [id number] Patient Name: ALEJO OVERTON MRN: [id number] date: 2000 Sex: F Assigned Patient Location: US Current Patient Location: US Accession/Order Number: [id number] Exam Date: 06/04/2025 21:13 Report Date: 06/04/2025 [...] Jr., D.O. 06/04/2025 9:22 PM Dictation Location: [place] [address] Electronically authenticated by: [id number] Y Date: 1:22 Dictated By: Juan Francisco Abel M.D. Signed By:06/04/252124 DD/ 21 TD/TT: Vocational Instructor: Jessie Al DO [facility] IMAGING Final Result * US OB ANATOMY (06/04/2025 9:22 PM EDT) Anatomical Region Laterality Modality Other 06/04/2025 9:22 PM EDT Narrative 06/04/2025 9:25 [place] [address] Ultrasound Report Signed Patient: ALEJO OVERTON MR#: [id number] : 2000 Acct:[id number] Age/Sex: 24 / F ADM Date: 06/04/25 Loc: US Attending Dr: Jessie Al D.O. Ordering Physician: Jessie Al D.O. Date of Service: 06/04/25 Procedure(s): US OB anatomy Accession Number(s): [id number] cc: Jessie Al D.O.; [place] [id number] Patient Name: ALEJO OVERTON MRN: [id number] date: 2000 Sex: F Assigned Patient Location: US Current Patient Location: US Accession/Order Number: [id number] Exam Date: 06/04/2025 21:13 Report Date: 06/04/2025 [...] Jr., D.O. 06/04/2025 9:22 PM Dictation Location: [place] [address] Electronically authenticated by: [id number] Date: 06/04/2025 21:22 Dictated By: Juan Francisco Abel M.D. Signed By: 06/04/252124 DD/ 21 TD/TT: Vocational Instructor: Procedure Note Radiology, Radiologist, - 06/04/2025 [place] [address] Ultrasound Report Signed Patient: ALEJO OVERTON MMR#: [id number] : 2000Acct:[id number] Age/Sex: 24 / FADM Date: 06/04/25 Loc: US Attending Dr: Jessie Al D.O. Ordering Physician: Jessie Al D.O. Date of Service: 06/04/25 Procedure(s): US OB anatomy Accession Number(s): [id number] cc: Jessie Al D.O.; [place] [address] Patient Name: ALEJO OVERTON MRN: [facility]:[id number] date: 2000 Sex: F Assigned Patient Location: US Current Patient Location: US Accession/Order Number: [id number] Exam Date: 06/04/2025 21:13 Report Date: 06/04/2025 [...] Jr., D.O. 06/04/2025 9:22 PM Dictation Location: [facility] Electronically authenticated by: [id number] Y Date: 1:22 Dictated By: Juan Francisco Abel M.D. Signed By:06/04/252124 DD/ 21 TD/TT: Vocational Instructor: [facility] Servando DO [facility] IMAGING Final Result * AFP, SERUM, OPEN SPINA BIFIDA (05/21/2025 8:39 AM EDT) RESULTS Report . [facility] TEST RESULTS: *Screen Negative* . [facility] GEST. AGE ON COLLECTION DATE 18.0 . weeks [facility] GESTAT. AGE BASED ON Ultrasound . [facility] Comment: 16.1 on 05/08/2025 Recalculations are not recommended when gestational dating by LMP and ultrasound are within 10 days. [age] [facility] RACE . [facility] WEIGHT 223 . lbs [facility] INSULIN DEP DIABETES No . [facility] MULTIPLE GESTATION No . [facility] AFP VALUE 24.9 . ng/mL [facility] AFP MOM 0.73 . [facility] [place] [address] . [facility] INTERPRETATION Comment . [facility] Comment: Interpretation: Screen Negative This result [...] Customer Services to discuss available options. The [employer] recommends amniocentesis be offered to women age 35 and older. COMMENT: Comment . [facility] Comment: Blanca Martinez, Ph.D., [facility] Director References: Available Upon Request. Multiples Of Median Cutoffs For AFP Elevations Carty 2.5 Black 2.8 IDD 2.0 Twins 4.5 Abbreviation Definitions IDD - Insulin Dep Diabetes OSBR - Open Spina Bifida Risk For further inquiries contact [employer] [facility] at [phone]. This test was developed and its performance characteristics determined by [employer]. It has not been cleared or approved by the Food and Drug Administration. Performed at: [facility] [address] [id number] Marine Steam Fitter: Renae Bautista [facility], Phone: [phone] 05/21/2025 8:39 AM EDT 05/21/2025 8:40 AM EDT Narrative [facility] - 05/23/2025 2:10 AM EDT N N ULTRASOUND [id number] 1 16 N 1 Y 223 N N N N N White/ us Jessie Servando DO LAB BLOOD ORDERABLES Final Resul t [facility] from Last 3 Months Insurance [facility] Care Teams Solar Energy Specialist Relationship Specialty Start Date End Date Cleveland Ray MD [address] [place] [address] PCP - General Family Medicine 05/27/23
--- OUTSIDE RECORDS SUMMARY | 2025-07-18 07:31 | XMS_ITS | CCD ---
Author Organization [facility] Care Team Providers Care Retouching Operator Name Role Phone Cleveland RAY Primary Care Physician [phone] Danika RUTLEDGE Unavailable Cleveland Ray MD Primary [...] (1 source) Amoxicillin; Translations: [amoxicillin] Drug Allergy [facility] Repository (1 source) Clindamycin; Translations: [clindamycin] Drug Allergy [facility] Repository (1 source) Penicillins; Translations: [penicillins] Propensity to adverse reactions (disorder) [facility] Repository (1 source) No Known Medication Allergies; Translations: [No Known Medication Allergies] Propensity to adverse reactions (disorder) [facility] Repository Medications Current Medications Medication Drug Class(es) [...] Daily, # 30 tab(s), Refills(s) 0, Pharmacy: [facility] #[id number], 173, cm, 03/30/24 8:25:00 EDT, Height/Length Dosing, 91.2, kg, 03/30/24 8:25:00 EDT, Weight Dosing Start Date: 03/30/24 Status: Ordered Start: 03-06-2024 take 1 tablet by gregor th once daily Adipex-P 37.5 mg Tab 37.5 mg = 1 tab(s), Oral, Daily, # 30 tab(s), Refills(s) 0, Pharmacy: [facility] #[id number], 173, cm, 03/06/24 8:02:00 EDT, Height/Length Dosing, 91.7, kg, 03/06/24 8:02:00 EDT, Weight Dosing Start Date: 03/06/24 Status: Ordered Start: 02-03-2024 take 1 tablet by gregor th once daily Adipex-P 37.5 mg Tab 37.5 mg = 1 tab(s), Oral, Daily, # 30 tab(s), Refills(s) 0, Pharmacy: [facility] #[id number], 173, cm, 02/03/24 8:01:00 EDT, Height/Length Dosing, 93, kg, 02/03/24 8:01:00 EDT, Weight Dosing Start Date: 02/03/24 Status: Ordered Start: 01-22-2023 End: 03-09-2025 take 1 tablet by mouth once daily Adipex-P 37.5 mg Tab 37.5 mg = 1 tab(s), Oral, Daily, # 30 tab(s), Refills(s) 0, Pharmacy: [facility] #[id number], 173, cm, 01/06/24 8:32:00 EST, Height/Length Dosing, 93, kg, 01/06/24 8:32:00 EST, Weight Dosing Start Date: 01/06/24 Status: Ordered Problems Active Problems Problem Classification Problem Date Documented Date Episodic/Chronic Contraceptive and procreative management (1 source) Subcutaneous contraceptive implant present; Translations: [Encounter for surveillance of implantable subdermal contraceptive] 11-20-2024 Episodic Immunizations and screening for infectious disease (2 sources) Exposure to sexually transmissible disorder; Translations: [Contact with and (suspected) exposure to infections with a predominantly sexual mode of transmission] 07-04-2025 Episodic Menstrual disorders (1 source) Missed period; [...] [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 Other female genital disorders (2 sources) Vaginal discharge; Translations: [Other specified noninflammatory disorders of vagina] 07-04-2025 Episodic Other nutritional; endocrine; and metabolic disorders (20 [...] 03-06-2024 Episodic Other and delivery including normal (10 sources) ; Translations: [Encounter for supervision of normal , unspecified, unspecified trimester] 03-09-2025 Episodic Other screening for suspected conditions (not mental disorders or infectious disease) (7 sources) Patient encounter status; Translations: [Unsatisfactory cytologic [...] [20 weeks gestation of ] 06-05-2025 Episodic Residual codes; unclassified (2 sources) Gestation period, 24 weeks; Translations: [24 weeks gestation of ] 07-04-2025 Episodic Past or Other Problems Problem Classification Problem Date Documented Da te Episodic/Chronic Unclassified (12 sources) Patient encounter status 01-14-2023 Results Test Name Value Interpretation Reference Range Facility IGP,APTIMA HPV,AGE GDLNon AGE GDLN ACOG TESTING Note . [facility] Comment on above: TESTS RESULT FLAG UN ITS REF RANGE LAB Clinician Provided Cytology Information Source.............Vagina Other.............. No. of containers..01 ThinPrep Vial Age Algo ACOG Sherice... FLAG LEGEND: L-Low Normal,H-High Normal,LL-Alert Low,HH-Alert High <-Panic Low,>-Panic High,A-Abnormal,AA-Critical Abnormal Performed at: 01 [facility] [address] Gabi Graves MD, IGP, RFX APTIMA HPV ASCU Note . [facility] Comment on above: TESTS RESULT FLAG UN ITS REF RANGE LAB DIAGNOSIS: 02 NEGATIVE FOR INTRAEPITHELIAL LESION OR MALIGNANCY. Specimen adequacy: 02 Satisfactory for evaluation. No endocervical component is identified. An endocervical component is not commonly seen in the patient. Performed by: Pablo Piper, Door Frame Builder ([facility]) . 02 Note: Note 02 The [...] <-Panic Low,>-Panic High,A-Abnormal,AA-Critical Abnormal Performed at: [address] [address] Gabi Graves MD, Performed at: = - [facility] [address] [id number] Perinatal Instructor: Gabi Graves MD, Phone: [phone] Performed at: [facility] [id number] Perinatal Instructor: Gabi Graves MD, Phone: [phone] SPATULA-ALONE VAGINA [facility] RECURRENT VAGINITIS (HTRX)on 07-06-2025 ATOPOBIUM VAGINAE 19.164 Abnormal [facility] ATOPOBIUM VAGINAE Detected Abnormal [facility] BVAB 2,3 (BACTERIAL VAGINOSIS ASSOCIATED BACTERIA 2, 3); MOBILUNCUS SPP 0 [facility] BVAB 2,3 (BACTERIAL VAGINOSIS ASSOCIATED BACTERIA 2, 3); MOBILUNCUS SPP Not detected [facility] IGOR ALBICANS, PARAPSILOSIS, TROPICALIS 0 [facility] IGOR ALBICANS, PARAPSILOSIS, TROPICALIS Not detected [facility] IGOR GLABRATA 0 [facility] IGOR GLABRATA Not detected [facility] IGOR KRUSEI 0 [facility] IGOR KRUSEI Not detected [facility] CHLAMYDIA TRACHOMATIS 0 [facility] CHLAMYDIA TRACHOMATIS Not detected [facility] Healthcare ERMB, C; MEFA 23.066 Abnormal [facility] ERMB, C; MEFA Detected Abnormal [facility] GARDNERELLA VAGINALIS 15.73 Abnormal [facility] GARDNERELLA VAGINALIS Detected Abnormal [facility] Interpretation and review of laboratory results Abnormal [facility] MEGASPHAERA (TYPES 1, 2) 14.97 Abnormal [facility] MEGASPHAERA (TYPES 1, 2) Detected Abnormal [facility] MYCOPLASMA GENITALIUM 0 [facility] MYCOPLASMA GENITALIUM Not detected [facility] NEISSERIA GONORRHOEAE 0 [facility] NEISSERIA GONORRHOEAE Not detected [facility] TET B, TET M 24.724 Abnormal [facility] TET B, TET M Detected Abnormal [facility] TRICHOMONAS VAGINALIS 0 [facility] TRICHOMONAS VAGINALIS Not detected [facility] Urinalysis macro (dipstick) panel (U)on 07-04-2025 Bilirubin, UA Negative Negative - 4(70) +++ mg/dL [facility] Blood, UA Negative Negative - 50 Ming/mcL [facility] Clarity, UA Clear [facility] Color, UA Yellow [facility] Glucose, UA Negative Negative - 1999(110) ++++ mg/dL [facility] Interpretation and review of laboratory results Abnormal [facility] Ketones, UA Negative Negative - 160(16) ++++ mg/dL [facility] Leukocytes, UA Positive Negative - 500+++ Manpreet/mcL [facility] Nitrite, UA Negative Negative - Positive [facility] pH, UA 6 5 - 9 [facility] Protein, UA Negative Negative - 1999(20) ++++ mg/dL [facility] Spec Grav, UA 1.015 1 - 1.03 [facility] Urobilinogen, UA 1.0 0.2 - 12 mg/dL [facility] US OB INCOMPLETE ANATOMYon 0 06-13-2025 [place] [address] Ultrasound Report Signed Patient: ALEJO OVERTON MR#: [id number] : 2000 Acct:[id number] Age/Sex: 24 / F ADM Date: 06/12/25 Loc: US Attending Dr: Jessie Al D.O. Ordering Physician: Jessie Al D.O. Date of Service: 06/12/25 Procedure(s): US OB incomplete anatomy Accession Number(s): [id number] cc: Jessie Al D.O.; Physician,Non-Staff [facility] [place] [id number] Patient Name: ALEJO OVERTON MRN: [id number] date: 2000 Sex: F Assigned Patient Location: US Current Patient Location: Accession/Order Number: [id number] Exam Date: 06/13/2025 09:05 Report Date: 06/13/2025 09:20 At the request of: JESSIE SERVANDO DO Procedure: US OB incomplete anatomy OB [...] Jr., D.O. 06/13/2025 9:20 AM Dictation Location: [place] [address] Electronically authenticated by: [id number] Y Date: 06/13/2025 09:20 Dictated By: Juan Francisco Abel M.D. Signed By: 06/13/25922 DD/ 9 TD/TT: Screw Eye Assembler: [facility] Radiology, Radiologkarsten quiroz MD - 06/13/2025 [place] [address] Ultrasound Report Signed Patient: ALEJO OVERTON MR#: [id number] : 2000 Acct:[id number] Age/Sex: 24 / F ADM Date: 06/12/25 Loc: US Attending Dr: Jessie Al D.O. Ordering Physician: Jessie Al D.O. Date of Service: 06/12/25 Procedure(s): US OB incomplete anatomy Accession Number(s): [id number] cc: Jessie Al D.O.; Physician,Non-Staff [facility] The [address] [address] Patient Name: ALEJO OVERTON MRN: [facility]:[id number] date: 2000 Sex: F Assigned Patient Location: US Current Patient Location: Accession/Order Number: [id number] Exam Date: 06/13/2025 09:05 Report Date: 06/13/2025 [...] Jr., D.O. 06/13/2025 9:20 AM Dictation Location: [place] [address] Electronically authenticated by: [id number] Y Date: 06/13/2025 09:20 Dictated By: Juan Francisco Abel M.D. Signed By: 06/13/25922 DD/ 9 TD/TT: Screw Eye Assembler: [facility] Radiology Study observation (narrative) [facility] US OB INCOMPLETE ANATOMYOrde red By: Radiologist Radiology on 06-13-2025 [facility] Work Phone: No Panel InformationOrdered By: Radiologist Radiology on 06-04-2025 [facility] Work Phone: No Panel Informationon 06-04 Radiology Study observation (narrative) [facility] US OB ANATOMYon 06-04-2025 [place] [address] Ultrasound Report Signed Patient: ALEJO OVERTON MR#: [id number] : 2000 Acct:[id number] Age/Sex: 24 / F ADM Date: 06/04/25 Loc: US Attending Dr: Jessie Al D.O. Ordering Physician: Jessie Al D.O. Date of Service: 06/04/25 Procedure(s): US OB anatomy Accession Number(s): [id number] cc: Jessie Al D.O.; [place] RAY The [address] [address] Patient Name: ALEJO OVERTON MRN: [facility]:[id number] date: 2000 Sex: F Assigned Patient Location: US Current Patient Location: US Accession/Order Number: [id number] Exam Date: 06/04/2025 21:13 Report Date: 06/04/2025 [...] Jr., D.O. 06/04/2025 9:22 PM Dictation Location: [place] [address] Electronically authenticated by: [id number] Y Date: 06/04/2025 21:22 Dictated By: Juan Francisco Abel M.D. Signed By: 06/04/252124 DD/ 21 TD/TT: Screw Eye Assembler: [facility] Radiology Radiologkarsten quiroz MD - 06/04/[address] [address] Ultrasound Report Signed Patient: ALEJO OVERTON MR#: [id number] : 2000 Acct:[id number] Age/Sex: 24 / F ADM Date: 06/04/25 Loc: US Attending Dr: Jessie Al D.O. Ordering Physician: Jessie Al D.O. Date of Service: 06/04/25 Procedure(s): US OB anatomy Accession Number(s): [id number] cc: Jessie Al D.O.; [place] RAY [place] [id number] Patient Name: ALEJO OVERTON MRN: [facility]:[id number] date: 2000 Sex: F Assigned Patient Location: US Current Patient Location: US Accession/Order Number: [id number] Exam Date: 06/04/2025 21:13 Report Date: 06/04/2025 [...] Jr., D.O. 06/04/2025 9:22 PM Dictation Location: [place] [address] Electronically authenticated by: [id number] Y Date: 06/04/2025 21:22 Dictated By: Juan Francisco Abel M.D. Signed By: 06/04/252124 DD/ 21 TD/TT: Screw Eye Assembler: ALEX [facility] US OB CERVICAL LENGTHon 05-09 [place] [address] Ultrasound Report Signed Patient: ALEJO OVERTON MR#: [id number] : 2000 Acct:[id number] Age/Sex: 24 / F ADM Date: 06/04/25 Loc: US Attending Dr: Jessie Al D.O. Ordering Physician: Jessie Al D.O. Date of Service: 06/04/25 Procedure(s): US OB cervical length Accession Number(s): [id number] cc: Jessie Al D.O.; [place] R[place] [id number] Patient Name: ALEJO OVERTON MRN: [facility]:[id number] date: 2000 Sex: F Assigned Patient Location: US Current Patient Location: US Accession/Order Number: [id number] Exam Date: 06/04/2025 21:13 Report Date: 06/04/2025 [...] without evidence of funneling. Impression dictated by: Nicola Sheldon Jr.OLuther 06/04/2025 9:22 PM Dictation Location: [place] [address] Electronically authenticated by: [id number] Y Date: 06/04/2025 21:22 Dictated By: Juan Francisco Abel M.D. Signed By: 06/04/252124 DD/ 21 TD/TT: Screw Eye Assembler: [facility] Radiology, Radiologkarsten quiroz MD - 06/04/2025 [place] [address] Ultrasound Report Signed Patient: ALEJO OVERTON MR#: [id number] : 2000 Acct:[id number] Age/Sex: 24 / F ADM Date: 06/04/25 Loc: US Attending Dr: Jessie Al D.O. Ordering Physician: Jessie Al D.O. Date of Service: 06/04/25 Procedure(s): US OB cervical length Accession Number(s): [id number] cc: Jessie Al D.O.; [place] [address] Patient Name: ALEJO OVERTON MRN: [facility]:[id number] date: 2000 Sex: F Assigned Patient Location: Current Patient Location: Accession/Order Number: [id number] Exam Date: 06/04/2025 21:13 Report Date: 06/04/2025 [...] Jr., D.O. 06/04/2025 9:22 PM Dictation Location: [employer] Electronically authenticated by: [id number] Y Date: 06/04/2025 21:22 Dictated By: Juan Francisco Abel M.D. Signed By: 06/04/252124 DD/ 21 TD/TT: Screw Eye Assembler: [facility] AFP, SERUM, OPEN SPINA BIFID Aon 05-23-2025 AFP MOM 0.73 . [facility] AFP VALUE 24.9 ng/mL . [facility] COMMENT: Comment . [facility] Comment on above: Blanca Martinez , Ph.D., [facility] Director References: Available Upon Request. Multiples Of Median Cutoffs For AFP Elevations Carty 2.5 Black 2.8 IDD 2.0 Twins 4.5 Abbreviation Definitions IDD - Insulin Dep Diabetes OSBR - Open Spina Bifida Risk For further inquiries contact [employer] at [phone]. This test was developed and its performance characteristics determined by [employer] It has not been cleared or approved by the Food and Drug Administration. Performed at: [facility] [address] [place], [place] [id number] Perinatal Instructor: Renae Bautista [facility], Phone: [phone] GEST. AGE ON COLLECTION DATE 18.0 . weeks [facility] GESTAT. AGE BASED ON Ultrasound . [facility] Comment on above: 16.1 on 05/08/2025 Recalculations are not recommended when gestational dating by LMP and ultrasound are within 10 days. INSULIN DEP DIABETES No . [facility] INTERPRETATION Comment . [facility] Comment on above: Interpretation: Scre en Negative [...] Customer Services to discuss available options. The [place] recommends amniocentesis be offered to women age 35 and older. [age] [facility] MULTIPLE GESTATION No . [facility] [place] [address] . [facility] RACE . [facility] RESULTS Report . [facility] TEST RESULTS: Negative . [facility] WEIGHT 223 . lbs [facility] N N ULTRASOUND [id number] 1 16 N 1 Y 223 N N N N N White/ [facility] Urinalysis macro (dipstick) panel (U)on 05-08-2025 Bilirubin, UA Negative Negative - 4(70) +++ mg/dL [facility] Blood, UA Negative Negative - 50 Ming/mcL [facility] Clarity, UA Clear [facility] Color, UA Yellow [facility] Glucose, UA Negative Negative - 1999(110) ++++ mg/dL [facility] Interpretation and review of laboratory results Abnormal [facility] Ketones, UA Positive Negative - 160(16) ++++ mg/dL [facility] Leukocytes, UA Trace Negative - 500+++ Manpreet/mcL [facility] Nitrite, UA Negative Negative - Positive [facility] pH, UA 6.5 5 - 9 [facility] Protein, UA Negative Negative - 1999(20) ++++ mg/dL [facility] Spec Grav, UA 1.025 1 - 1.03 [facility] Urobilinogen, UA 1.0 0.2 - 12 mg/dL [facility] Urinalysis macro (dipstick) panel (U)on 04-09-2025 Bilirubin, UA Negative Negative - 4(70) +++ mg/dL [facility] Blood, UA Negative Negative - 50 Ming/mcL [facility] Clarity, UA Clear [facility] Color, UA Yellow [facility] Glucose, UA Negative Negative - 2000(110) ++++ mg/dL [facility] Interpretation and review of laboratory results Normal [facility] Ketones, UA Negative Negative - 160(16) ++++ mg/dL [facility] Leukocytes, UA Negative Negative - 500+++ Manpreet/mcL [facility] Nitrite, UA Negative Negative - Positive [facility] pH, UA 6 5 - 9 [facility] Protein, UA Negative Negative - 1999(20) ++++ mg/dL [facility] Spec Grav, UA 1.01 1 - 1.03 [facility] Urobilinogen, UA 0.2 0.2 - 12 mg/dL [facility] BOX TESTon 03-19-2025 [address] OUT [facility] BOX1 [facility] BOX2 03/19/25 [facility] US OB TRANSVAGINALon 025 US OB TRANSVAGINAL [...] II, MD, PHD at 11-Mar-2025 08:55:38 PM [employer] Normal Not Available Comment on above: Order [...] with steri-strips and pressure bandage applied: yes [facility] PAP IMAGE GUIDEDon 06-10 PAP IG (IMAGE GUIDED) Note . [facility] Comment on above: TESTS RESULT FLAG UN ITS REF RANGE LAB Clinician Provided Cytology Information Source.............Cervix;Endocervix No. of containers..01 ThinPrep Vial DIAGNOSIS: 01 NEGATIVE FOR INTRAEPITHELIAL LESION OR MALIGNANCY. Specimen adequacy: 01 Satisfactory for evaluation. Endocervical and/or squamous metaplastic cells (endocervical component) are present. Performed by: Trinity Schmidt, Manager Cafe ([facility]) . 01 Note: Note 01 The Pap [...] <-Panic Low,>-Panic High,A-Abnormal,AA-Critical Abnormal Performed at: [address] [address] Gabi Graves MD, Performed at: - [facility] [address] [id number] Perinatal Instructor: Gabi Graves MD, Phone: [phone] BRUSH-SPATULA CERVIX ENDOCERVIX [facility] Ambulatory Visit Summaryon 0 05-04-2024 Ambulatory Visit [...] Follow Up with Cleveland RAY DO, FAAFP, FAM, PED When: In 6 months Where: [address], [place] [address]- Medications What How Much When Why Instructions [...] your health care provider or diet and vehicle care specialist (dietitian). This may include: ? Eating [...] exercise may (more content not included)... Normal [facility] Family Medicine Office/Clini c Noteon 05-04-2024 Family [...] Cleveland RAY DO, FAAFP, DAE, PED In [address] [place] [address]- Additional Instructions: Patient Education Exercising to Lose [...] ped 0 (more content not included)... Normal [facility] Comment on above: Result Comment: Elec tronically [...] EDT With: Cleveland RAY DO, FAAFP Where: [facility] Normal [facility] Family Medicine Office/Clini c Noteon 03-30-2024 Family [...] Daily, # 30 tab(s), Refills(s) 0, Pharmacy: [facility] #[id number], 173, cm, 03/30/24 8:25:00 EDT, Height/Length Dosing, [...] Cleveland RAY DO, FAAFP, FAM, PED In 1 month [address] [facility] [place] [address]- Additional Instructions: Patient Education BMI for Adults Problem List/Past Medical History Ongoing Compound nevus of face Historical Other obesity School physical exam Procedure/Surgical History None. Medications Adipex-P 37.5 mg Tab, 37.5 mg= 1 tab(s), Oral, Daily Nexplanon 68 mg subcutaneous implant, SubCutaneou (more content not included)... Normal [facility] Comment on above: Result Comment: Elec tronically Signed By: Cleveland RAY DO, FAAFP\.br\Date and Time Signed: 03/30/24 08:47 EDT Patient Educationon 03-30-20 24 Patient Education Nutrition BMI for Adults What [...] numbers. This can be done either in [place] ([place] or metric measurements. Note that charts and online BMI calculators are available to help you find your BMI quickly and easily without having to do these calculations yourself. To calculate your BMI in [place] measurements: 1. Measure your weight in [...] for Disease Control and Prevention: www.cdc.gov ? [place] [employer]: www.heart.org ? National Heart, Lung, and Blood [place]: www.nhlbi.nih.gov Summary ? Body mass index (BMI) is a number that is calculated from a person's weight and height. ? BMI may help estimate how much of a person's weight is composed of fat. BMI can help identify those who may be at higher risk for certain medical problems. ? BMI can be measured using [place]ese measurements or metric measurements. ? BMI charts are used to identify whether you are underweight, normal weight, overweight, or obese. This information is not intended to replace advice given to you by your health care provider. Make sure you discuss any questions you have with your health care provider. Document Revised: 07/17/2020 Document Reviewed: 05/24/2020 [employer] Patient Education ? 2022 [employer] Normal [facility] Ambulatory Visit Summaryon 0 03-06-2024 Ambulatory Visit [...] EDT With: Cleveland RAY DO, FAAFP Where: [facility] Normal [address] [place] [address]- \.br\ You Need to Schedule the Following Appointments\ .br\ Follow Up with Cleveland RAY DO, FAAFP, DAE, PED When: In 1 month\.br\ Where:\.br\ [address]\ [place] [address].br\ \.br\ Medications\. br\ What How Much When Why Instructions\ .br\ Unchanged etonogestrel (Nexplanon 68 mg subcutaneous implant) Subcutaneous Once\.br\ Unchanged phentermine (Adipex-P 37.5 mg Tab) 1 Tablets By Mouth Every day Other obesity Pickup at [facility] #[id number]\.br\ Pharmacy Information\. br\ [facility] #[id number]: [address], [place] [id number] [phone]\.br\ Allergies\.br \ No Known Medication Allergies\.br \ [...] your health care provider or diet and vehicle care specialist (dietitian). This may include:\.br\ ? \.br\ [...] to you by your health care provider. 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, [place] [address]- Additional Instructions: Patient Education Exercising to Lose Weight Problem List/Past Medical History Ongoing Compound nevus of face Historical Other obesity School physical exam Procedure/Surgical History None. Medications Adipex-P 37.5 mg Tab, 37.5 mg= 1 tab(s), Oral, Daily Nexplanon 68 mg subcutaneous implant, SubCutaneous, Once Allergies No Known Medication Allergies Social History Alcohol - Denies (more content not included)... Normal [facility] Comment on above: Result Comment: Elec tronically [...] your health care provider or diet and vehicle care specialist (dietitian). This may include: ? Eating [...] is e (more content not included)... Normal [facility] Ambulatory Visit Summaryon 0 02-03-2024 Ambulatory Visit [...] Mouth Every day Other obesity Pickup at [id number] Pharmacy Information [facility][id number]: [address], [place] [phone] Allergies No Known Medication Allergies Problems Ongoing [...] for choosing us for your care. Normal [facility] Family Medicine Office/Clini c Noteon 02-03-2024 Family [...] Daily, # 30 tab(s), Refills(s) 0, Pharmacy: [id number], 173, cm, 02/03/24 8:01:00 EDT, Height/Length Dosing, 93, kg, 02/03/24 8:01:00 EDT, Weight Dosing Follow-up With When Contact Information AURELIO BAJWA FAAFP, [place] Santo, DAE, PED In [address] [place] [address]- Additional Instructions: Patient Education Exercising [...] inactivated 04/03/ (more content not included)... Normal [facility] Comment on above: Result Comment: Elec tronically Signed By: Cleveland RYA DO, FAAFP\Date and Time Signed: 02/03/24 08:35 [...] your health care provider or diet and vehicle care specialist (dietitian). This may include: ? Eating [...] is e (more content not included)... Normal [facility] CHEMISTRYOrdered By: SYSTEM SYSTEM on 01-16-2023 Cholesterol [...] Time Vital Sign Value Performing Clinician Facility 07-04-2025 15:04-0400 Body mass index (BMI) [Ratio] 33.83 kg/m2 [facility] Work Phone: [facility] 07-04-2025 15:04-0400 Body weight 106.96 kg Jessie Servando DO Work Phone: [facility] 07-04-2025 15:04-0400 Diastolic blood pressure 70 mm[Hg] Jessie Servando DO Work Phone: [facility] 07-04-2025 15:04-0400 Systolic blood pressure 114 mm[Hg] Jessie Servando DO Work Phone: [facility] 06-05-2025 14:37-0400 Body mass index (BMI) [Ratio] 32.79 kg/m2 Gabby CHANEL Work Phone: [facility] 06-05-2025 14:37-0400 Body weight 103.65 kg Gabby Linder PA Work Phone: [facility] 06-05-2025 14:37-0400 Diastolic blood pressure 76 mm[Hg] Gabby Linder PA Work Phone: [facility] 06-05-2025 14:37-0400 Systolic blood pressure 120 mm[Hg] Gabby Linder PA Work Phone: [facility] 05-08-2025 09:35-0400 Body mass index (BMI) [Ratio] 32.11 kg/m2 Jessie Servando DO Work Phone: [facility] 05-08-2025 09:35-0400 Body weight 101.52 kg Jessie Servando DO Work Phone: [facility] 05-08-2025 09:35-0400 Diastolic blood pressure 72 mm[Hg] Jessie Servando DO Work Phone: [facility] 05-08-2025 09:35-0400 Systolic blood pressure 118 mm[Hg] Jessie Servando DO Work Phone: [facility] 04-09-2025 15:37-0400 Body mass index (BMI) [Ratio] 31.67 kg/m2 Jessie Servando DO Work Phone: [facility] 04-09-2025 15:37-0400 Body weight 100.13 kg Jessie Servando DO Work Phone: [facility] 04-09-2025 15:37-0400 Diastolic blood pressure 78 mm[Hg] Jessie Servando DO Work Phone: [facility] 04-09-2025 15:37-0400 Systolic blood pressure 122 mm[Hg] Jessie Servando DO Work Phone: [facility] 03-09-2025 09:18-0400 Body mass index (BMI) [Ratio] 31.15 kg/m2 [facility] 03-09-2025 09:18-0400 Body weight 98.48 kg [facility] Nurse [facility] 11-20-2024 13:47-0500 Body mass index (BMI) [Ratio] 29.99 kg/m2 Jessie Servando DO Work Phone: [facility] 11-20-2024 13:47-0500 Body weight 94.8 kg Jessie Servando DO Work Phone: [facility] 11-20-2024 13:47-0500 Diastolic blood pressure 76 mm[Hg] Jessie Servando DO Work Phone: [facility] 11-20-2024 13:47-0500 Systolic blood pressure 112 mm[Hg] Jessie Servando DO Work Phone: [facility] 07-03-2024 14:50-0400 Body mass index (BMI) [Ratio] 29.1 kg/m2 Jessie Servando DO Work Phone: [facility] 07-03-2024 14:50-0400 Body weight 91.99 kg Jessie Servando DO Work Phone: [facility] 07-03-2024 14:50-0400 Diastolic blood pressure 70 mm[Hg] Jessie Servando DO Work Phone: [facility] 07-03-2024 14:50-0400 Systolic blood pressure 112 mm[Hg] Jessie Servando DO Work Phone: [facility] 05-04-2024 08:28-0400 Blood Pressure Location [place] KAPLE [facility] 05-04-2024 08:28-0400 Body temperature 97.88 [degF] [place] KAPLE [facility] 05-04-2024 08:28-0400 Diastolic blood pressure 70 mm[Hg] [place] KAPLE [facility] 05-04-2024 08:28-0400 Heart rate 78 /min [place] KAPLE [facility] 05-04-2024 08:28-0400 Respiratory rate 16 /min [place] KAPLE [facility] 05-04-2024 08:28-0400 SaO2% (BldA) [Mass fraction] 99 % [place] KAPLE [facility] 05-04-2024 08:28-0400 Systolic blood pressure 120 mm[Hg] [place] KAPLE [facility] 03-30-2024 08:18-0400 Blood Pressure Location [place] KAPLE [facility] 03-30-2024 08:18-0400 Body temperature 97.88 [degF] [place] KAPLE [facility] 03-30-2024 08:18-0400 Diastolic blood pressure 72 mm[Hg] [place] KAPLE [facility] 03-30-2024 08:18-0400 Heart rate 80 /min [place] KAPLE [facility] 03-30-2024 08:18-0400 Respiratory rate 16 /min [place] KAPLE [facility] 03-30-2024 08:18-0400 SaO2% (BldA) [Mass fraction] 99 % [place] KAPLE [facility] 03-30-2024 08:18-0400 Systolic blood pressure 118 mm[Hg] [place] KAPLE [facility] 03-06-2024 07:56-0400 Blood Pressure Location [place] KAPLE [facility] 03-06-2024 07:56-0400 Body temperature 97.7 [degF] [place] KAPLE [facility] 03-06-2024 07:56-0400 Diastolic blood pressure 70 mm[Hg] [place] KAPLE [facility] 03-06-2024 07:56-0400 Heart rate 76 /min [place] KAPLE [facility] 03-06-2024 07:56-0400 Respiratory rate 16 /min [place] KAPLE [facility] 03-06-2024 07:56-0400 SaO2% (BldA) [Mass fraction] 99 % [place] KAPLE [facility] 03-06-2024 07:56-0400 Systolic blood pressure 116 mm[Hg] [place] KAPLE [facility] 02-03-2024 07:54-0400 Blood Pressure Location [place] KAPLE [facility] 02-03-2024 07:54-0400 Body temperature 97.88 [degF] [place] KAPLE [facility] 02-03-2024 07:54-0400 Diastolic blood pressure 72 mm[Hg] [place] KAPLE [facility] 02-03-2024 07:54-0400 Heart rate 80 /min [place] KAPLE [facility] 02-03-2024 07:54-0400 Respiratory rate 16 /min [place] KAPLE [facility] 02-03-2024 07:54-0400 SaO2% (BldA) [Mass fraction] 97 % [place] KAPLE [facility] 02-03-2024 07:54-0400 Systolic blood pressure 112 mm[Hg] [place] KAPLE [facility] 01-06-2024 08:26-0500 Blood Pressure Location [place] KAPLE [facility] 01-06-2024 08:26-0500 Body temperature 97.88 [degF] [place] KAPLE [facility] 01-06-2024 08:26-0500 Diastolic blood pressure 72 mm[Hg] [place] KAPLE [facility] 01-06-2024 08:26-0500 Heart rate 84 /min [place] KAPLE [facility] 01-06-2024 08:26-0500 Respiratory rate 16 /min [place] KAP[facility] 01-06-2024 08:26-0500 SaO2% (BldA) [Mass fraction] 99 % [place] KAPLE [facility] 01-06-2024 08:26-0500 Systolic blood pressure 112 mm[Hg] [place] KAPLE [facility] 12-06-2023 08:24-0500 Blood Pressure Location [place] KAP[facility] 12-06-2023 08:24-0500 Body temperature 97.88 [degF] [place] KAPLE [facility] 12-06-2023 08:24-0500 Diastolic blood pressure 70 mm[Hg] [place] KAPLE [facility] 12-06-2023 08:24-0500 Heart rate 86 /min [place] KAPLE [facility] 12-06-2023 08:24-0500 Respiratory rate 16 /min [place] KAPLE [facility] 01-29-2024 08:24-0500 SaO2% (BldA) [Mass fraction] 98 % [place] KAPLE [facility] 12-06-2023 08:24-0500 Systolic blood pressure 112 mm[Hg] [place] KAPLE [facility] 11-04-2023 07:49-0500 Blood Pressure Location [place] KAPLE [facility] 11-04-2023 07:49-0500 Body temperature 97.88 [degF] [place] KAPLE [facility] 11-04-2023 07:49-0500 Diastolic blood pressure 72 mm[Hg] [place] KAPLE [facility] 11-04-2023 07:49-0500 Heart rate 86 /min [place] KAPLE [facility] 11-04-2023 07:49-0500 Respiratory rate 16 /min [place] KAPLE [facility] 11-04-2023 07:49-0500 SaO2% (BldA) [Mass fraction] 97 % [place] KAPLE [facility] 11-04-2023 07:49-0500 Systolic blood pressure 114 mm[Hg] [place] KAPLE [facility] 05-03-2023 07:40-0400 Blood Pressure Location [place] KAPLE [facility] 05-03-2023 07:40-0400 Body temperature 97.88 [degF] [place] KAPLE [facility] 05-03-2023 07:40-0400 Diastolic blood pressure 74 mm[Hg] [place] KAPLE [facility] 06-26-2023 07:40-0400 Heart rate 85 /min [place] KAPLE [facility] 05-03-2023 07:40-0400 Respiratory rate 16 /min [place] KAPLE [facility] 05-03-2023 07:40-0400 SaO2% (BldA) [Mass fraction] 100 % [place] KAPLE [facility] 05-03-2023 07:40-0400 Systolic blood pressure 116 mm[Hg] [place] KAPLE [facility] 02-22-2023 14:47-0400 Blood Pressure Location [place] KAPLE [facility] 02-22-2023 14:47-0400 Body temperature 97.88 [degF] [place] KAPLE [facility] 02-22-2023 14:47-0400 Diastolic blood pressure 78 mm[Hg] [place] KAPLE [facility] 02-22-2023 14:47-0400 Heart rate 78 /min [place] KAPLE [facility] 02-22-2023 14:47-0400 Respiratory rate 16 /min [place] KAPLE [facility] 02-22-2023 14:47-0400 SaO2% (BldA) [Mass fraction] 99 % [place] KAPLE [facility] 02-22-2023 14:47-0400 Systolic blood pressure 120 mm[Hg] [place] KAPLE [facility] 01-22-2023 13:14-0400 Blood Pressure Location [place] KAPLE [facility] 01-22-2023 13:14-0400 Body temperature 98.24 [degF] [place] KAPLE [facility] 01-22-2023 13:14-0400 Diastolic blood pressure 78 mm[Hg] [place] KAPLE [facility] 01-22-2023 13:14-0400 Heart rate 76 /min [place] KAPLE [facility] 01-22-2023 13:14-0400 Systolic blood pressure 124 mm[Hg] [place] KAPLE [facility] 01-14-2023 07:53-0500 Blood Pressure Location [place] KAPLE [facility] 01-14-2023 07:53-0500 Body temperature 97.88 [degF] [place] K[facility] 01-14-2023 07:53-0500 Diastolic blood pressure 70 mm[Hg] [place] KAPLE [facility] 01-14-2023 07:53-0500 Heart rate 69 /min [place] K[facility] 01-14-2023 07:53-0500 Respiratory rate 16 /min [place] K[facility] 01-14-2023 07:53-0500 SaO2% (BldA) [Mass fraction] 98 % [place] KAPLE [facility] 01-14-2023 07:53-0500 Systolic blood pressure 114 mm[Hg] [place] KAPLE [facility] Encounters Encounter Date Encounter Type Care Provider Facility Start: 07-04-2025 End: 07-04-2025 Patient encounter procedure Jessie Al DO Work Phone: [facility] Work Phone: Start: 07-04-2025 End: 07-04-2025 Periodic preventive med est patient 18-39 yrs Jessie Servando DO Work Phone: [facility] Comment on above: Well woman exam with routine gynecological exam; Vaginal discharge; STD exposure; Second trimester ([facility]); 24 weeks gestation of ([facility]); Diabetes mellitus screening Start: 07-04-2025 End: 07-04-2025 ambulatory JESSIE SERVANDO Not Available Start: 07-04-2025 End: 07-04-2025 Bamboo flowsheet Jessie Servando DO Work Phone: [facility] Start: 07-04-2025 End: 07-11-2025 Bamboo flowsheet Jessie Servando DO Work Phone: [facility] Start: 07-04-2025 End: 07-11-2025 Clinisync Result Encounter Jessie Servando DO Work Phone: [facility] Unsolicited Start: 07-04-2025 End: 07-06-2025 External Result Encounter Jessie Servando DO Work Phone: [facility] Unsolicited Start: 06-13-2025 End: 06-13-2025 Clinisync Result Encounter Jessie Servando DO Work Phone: [facility] Unsolicited Start: 06-13-2025 End: 06-13-2025 Clinisync Result Encounter Jessie Servando DO Work Phone: [facility] Unsolicited Start: 06-05-2025 End: 06-05-2025 flow sheet Gabby Linder PA Work Phone: [facility] Comment on above: Second trimester pre gnancy ([facility]); 20 weeks gestation of ([facility]); Encounter for follow-up ultrasound of anatomy ([facility]) Start: 06-05-2025 End: 06-05-2025 ambulatory GABBY LINDER Not Available Start: 06-05-2025 End: 06-05-2025 Bamboo flowsheet Gabby CHANEL Work Phone: [facility] Start: 06-05-2025 End: 06-05-2025 Bamboo flowsheet Gabby CHANEL Work Phone: [facility] Start: 06-04-2025 End: 06-04-2025 Clinisync Result Encounter Jessie Servando DO Work Phone: [facility] Unsolicited Start: 06-04-2025 End: 06-04-2025 Clinisync Result Encounter Jessie Servando DO Work Phone: [facility] Unsolicited Start: 05-21-2025 End: 05-23-2025 Clinisync Result Encounter Jessie Servando DO Work Phone: [facility] Unsolicited Start: 05-21-2025 End: 05-23-2025 Clinisync Result Encounter Jessie Servando DO Work Phone: [facility] Unsolicited Start: 05-08-2025 End: 05-08-2025 Bamboo flowsheet Jessie Servando DO Work Phone: [facility] Start: 05-08-2025 End: 05-08-2025 Bamboo flowsheet Jessie Servando DO Work Phone: [facility] Start: 05-08-2025 End: 05-08-2025 ambulatory JESSIE SERVANDO Not Available Start: 05-08-2025 End: 05-08-2025 flow sheet Jessie Servando DO Work Phone: [facility] Comment on above: Second trimester pre gnancy ([facility] 16 weeks gestation of ([facility]); Screening, , for anatomic survey ([facility]) Start: 04-09-2025 End: 04-09-2025 ambulatory JESSIE SERVANDO Not Available Start: 04-09-2025 End: 04-09-2025 flow sheet Jessie Servando DO Work Phone: [facility] Comment on above: First trimester preg modesto (Primary Dx) Start: 04-09-2025 End: 04-09-2025 Bamboo flowsheet Jessie Servando DO Work Phone: [facility] Start: 04-09-2025 End: 04-09-2025 Bamboo flowsheet Jessie Servando DO Work Phone: [facility] Start: 03-19-2025 End: 03-19-2025 Clinisync Result Encounter Jessie Servando DO Work Phone: [facility] Unsolicited Start: 03-19-2025 End: 03-19-2025 Clinisync Result Encounter Jessie Servando DO Work Phone: [facility] Unsolicited Start: 03-13-[address] [facility] Facility: [facility] Start: 03-09-2025 End: 03-09-2025 Office outpatient visit 5 minutes [facility] Nurse [facility] Comment on above: GA: 7w4d Start: 03-09-2025 End: 03-09-2025 ambulatory JESSIE SERVANDO Not Available Start: 11-20-2024 End: 11-20-2024 Patient [...] insufficient cervical cells Start: 07-03-2024 End: 07-03-2024 Bamboo flowsheet Jessie Servando DO Work Phone: [facility] Start: 07-03-2024 End: 09-12-2024 Clinisync Result Encounter Jessie Servando DO Work Phone: [facility] Unsolicited Start: 07-03-2024 End: 09-12-2024 Clinisync Result Encounter Jessie Al DO Work Phone: [facility] Unsolicited Start: 05-04-2024 End: 05-04-2024 ambulatory [place] A KAPLE Facility:[facility] Start: 05-04-2024 End: 05-04-2024 Patient encounter procedure [place] A KAPLE [facility] Start: 03-30-2024 End: 03-30-2024 ambulatory [place] A KAPLE Facility:[facility] Start: 03-30-2024 End: 03-30-2024 Patient encounter procedure [place] A KAPLE [facility] Start: 03-06-2024 End: 03-06-2024 ambulatory [place] A KAPLE Facility:[facility] Start: 03-06-2024 End: 03-06-2024 Patient encounter procedure [place] A KAPLE [facility] Start: 02-03-2024 End: 02-03-2024 ambulatory [place] A KAPLE Facility:[facility] Start: 02-03-2024 End: 02-03-2024 Patient encounter procedure [place] A KAPLE [facility] Start: 01-06-2024 End: 01-06-2024 Patient encounter procedure [place] A KAPLE [facility] Start: 12-06-2023 End: 12-06-2023 Patient encounter procedure [place] A KAPLE [facility] Start: 11-04-2023 End: 11-04-2023 Patient encounter procedure [place] A KAPLE [facility] Start: 05-03-2023 End: 05-03-2023 Patient encounter procedure [place] RAY [facility] Start: 02-22-2023 End: 02-22-2023 Patient encounter procedure [place] RAY [facility] Start: 01-22-2023 End: 01-22-2023 Patient encounter procedure [place] RAY [facility] Start: 01-16-2023 End: 01-16-2023 Patient encounter procedure [place] RAY [facility] Start: 01-14-2023 End: 01-14-2023 Patient encounter procedure [place] RAY [facility] Start: 01-14-2023 End: 01-14-2023 Well adult monitoring check done [place] RAY [facility] Procedures Date Procedure Procedure Detail Performing Clinician Start: 07-04-2025 RECURRENT VAGINITIS (HTRX) Jessie Servando DO Work Phone: Start: 07-04-2025 Urnls dip stick/tabl et rgnt non-auto w/o micrscp Jessie Servando DO Work Phone: Start: 07-04-2025 IGP,APTIMA HPV,AGE GDLN Jessie Servando DO Work Phone: Start: 06-13-2025 US OB INCOMPLETE ANATOMY Jessie Servando DO Work Phone: Start: 06-04-2025 US OB ANATOMY Jessie Marija io DO Work Phone: Start: 06-04-2025 US OB CERVICAL LENGTH C orey Servando DO Work Phone: Start: 05-21-2025 AFP, SERUM, OPEN SPI NA BIFIDA Jessie Servando DO Work Phone: Start: 05-08-2025 Urnls dip stick/tabl et rgnt non-auto w/o micrscp Jessie Servando DO Work Phone: Start: 04-09-2025 Urnls dip stick/tabl et rgnt non-auto w/o micrscp Jessie Servando DO Work Phone: Start: 03-19-2025 BOX TEST Jessie Fazi o DO Work Phone: Start: 11-20-2024 INSPECTOR WATCH ASSEMBLY INSERTION/REMOVA L OF CONTRACEPTIVE CAPSULE Jessie Servando DO Work Phone: Start: 07-03-2024 ELCH PAP IMAGE GUIDED C glenn Servando DO Work Phone: None (qualifier value) [place] RAY Plan of Treatment Date Care Activity Detail Author Start: 08-01-2025 End: 08-01-2025 Patient encounter procedure 08/01/2025 3:00 PM EDT Routine [facility] [address] [place] [address] aGbby Linder PA [address] [place] [address] [facility] Start: 07-04-2025 End: 07-04-2025 Patient encounter procedure [facility] Comment on above: Arrived Start: 07-04-2025 End: 07-04-2026 CBC panel - Blood by Automated count CBC Lab Routine Diabetes mellitus screening Expected: 07/04/2025 (Approximate), Expires: 07/04/2026 [facility] Work Phone: Comment on above: Expected: 07/04/2025 (Approximate), Expires: 07/04/2026 Start: 07-04-2025 End: 07-04-2026 Measurement of glucose 1 hour after glucose challenge for glucose tolerance test Glucose tolerance, 1 hour Lab Routine Diabetes mellitus screening Expected: 07/04/2025 (Approximate), Expires: 07/04/2026 [facility] Comment on above: Expected: 07/04/2025 (Approximate), Expires: 07/04/2026 Start: 06-05-2025 End: 06-05-2025 Patient encounter procedure [facility] Comment on above: Arrived Start: 06-05-2025 End: 09-05-2025 US for US OB limited 1+ fetuses Imaging Routine Encounter for follow-up ultrasound of anatomy ([facility]) Expected: 06/05/2025, Expires: 09/05/2025 [facility] Work Phone: Comment on above: Expected: 06/05/2025 , Expires: 09/05/2025 Start: 05-31-2025 End: 05-31-2025 Patient encounter procedure 05/31/2025 8:30 AM EDT Office Visit [facility] [address] [place] [id number] Jessie Al, DO [address] [place] [address] [facility] Start: 05-08-2025 End: 11-08-2025 Alpha fetoprotein, maternal Alpha fetoprotein, maternal Lab Routine Second trimester ([facility]) 16 weeks gestation of ([facility]) Expected: 05/08/2025 (Approximate), Expires: 11/08/2025 [facility] Work Phone: Comment on above: Expected: 05/08/2025 (Approximate), Expires: 11/08/2025 Start: 05-08-2025 End: 08-08-2025 US for US OB 14+ weeks anatomy scan Imaging Routine Screening, , for anatomic survey ([facility]) Expected: 05/08/2025, Expires: 08/08/2025 [facility] Comment on above: Expected: 05/08/2025 , Expires: 08/08/2025 Start: 05-08-2025 End: 05-08-2025 Patient encounter procedure 05/08/2025 9:10 AM EDT Routine [facility] [address] [place] [address] Jessie Al, DO [address] [place] [address] [facility] Start: 04-09-2025 End: 04-09-2025 Patient encounter procedure 04/09/2025 3:10 PM EDT Routine [facility] [address] [place] [address] Jessie Al, DO [address] [place] [address] [facility] Start: 03-09-2025 End: 03-09-2026 ABO/Rh ABO/Rh Lab Routine Missed menses , unspecified gestational age Expected: 03/09/2025 (Approximate), Expires: 03/09/2026 [facility] Comment on above: Expected: 03/09/2025 (Approximate), Expires: 03/09/2026 Start: 03-09-2025 End: 03-09-2026 Blood type and Indirect antibody screen panel - Blood Type and screen Lab Routine Missed menses , unspecified gestational age Expected: 03/09/2025 (Approximate), Expires: 03/09/2026 [facility] Work Phone: Comment on above: Expected: 03/09/2025 (Approximate), Expires: 03/09/2026 Start: 03-09-2025 End: 03-09-2026 Drugs of abuse panel - Urine by Screen method Rapid drug screen, urine Lab Routine , unspecified gestational age Encounter for supervision of normal first in first trimester Expected: 03/09/2025 (Approximate), Expires: 03/09/2026 [facility] Comment on above: Expected: 03/09/2025 (Approximate), Expires: 03/09/2026 Start: 11-20-2024 End: 11-20-2024 Patient encounter procedure 11/20/2024 3:30 PM EST Procedure Visit [facility] [address] [place] [phone] Jessie Al, DO [address] [place] [address] [facility] Start: 07-03-2024 End: 07-03-2024 Patient encounter procedure 07/03/2024 2:20 PM EDT Procedure Visit [facility] [address] [place] [phone] Jessie Al, DO [address] [place] [address] Arrived [facility] Comment on above: Arrived Bacteria identified in Urine by Culture Urine culture Microbiology Routine Missed menses Ordered: 03/09/2025 [facility] Comment on above: Ordered: 03/09/2025 CBC W Auto Different ial panel - Blood CBC and differential Lab Routine Missed menses , unspecified gestational age Ordered: 03/09/2025 [facility] Comment on above: Ordered: 03/09/2025 Cytology Cervical or vaginal smear or scraping study Pap Smear Pathology and Cytology Routine Encounter for repeat Pap smear due to previous insufficient cervical cells Ordered: 07/03/2024 [facility] Work Phone: Comment on above: Ordered: 07/03/2024 Cytology Cervical or vaginal smear or scraping study Pap Smear Pathology and Cytology Routine Well woman exam with routine gynecological exam Ordered: 07/04/2025 [facility] Comment on above: Ordered: 07/04/2025 Hemoglobin A1c/Hemoglobin.total in Blood Hemoglobin A1c Lab Routine Missed menses , unspecified gestational age Ordered: 03/09/2025 [facility] Comment on above: Ordered: 03/09/2025 Hepatitis B virus surface Ag [Presence] in Serum or Plasma by Immunoassay Hepatitis B surface antigen Lab Routine Missed menses , unspecified gestational age Ordered: 03/09/2025 [facility] Comment on above: Ordered: 03/09/2025 Hepatitis C virus Ab [Presence] in Serum or Plasma by Immunoassay Hepatitis C antibody Lab Routine Missed menses , unspecified gestational age Ordered: 03/09/2025 [facility] Comment on above: Ordered: 03/09/2025 HIV-1/HIV-2 antigen/antibody combination immunoassay HIV-1 and HIV-2 antibodies Lab Routine Missed menses , unspecified gestational age Ordered: 03/09/2025 [facility] Comment on above: Ordered: 03/09/2025 Reagin Ab [Presence] in Serum by RPR RPR Lab Routine Missed menses , unspecified gestational age Ordered: 03/09/2025 [facility] Comment on above: Ordered: 03/09/2025 Rubella antibody, IgG Rubella an tibody, IgG Lab Routine Missed menses , unspecified gestational age Ordered: 03/09/2025 [facility] Comment on above: Ordered: 03/09/2025 Immunizations Immunization Date Immunization Notes Care Provider Fa [facility] 09-18-2020 influenza virus vaccine, unspecified formulation Cleveland RAY [facility] 05-04-2020 tetanus toxoid, unspecified formulation Cleveland RAY [facility] 05-04-2020 tetanus toxoid, reduced diphtheria toxoid, and acellular pertussis vaccine, adsorbed Cleveland RAY [facility] 07-22-2017 meningococcal ACWY vaccine, unspecified formulation Cleveland RAY [facility] 07-22-2017 meningococcal B vaccine, fully recombinant Cleveland RAY [facility] 07-20-2012 diphtheria, tetanus toxoids and acellular pertussis vaccine Cleveland RAY [facility] 07-20-2012 HPV, unspecified formulation Cleveland RAY [facility] 07-20-2012 meningococcal ACWY vaccine, unspecified formulation Cleveland KAPLE [facility] 04-03-2005 DTaP, unspecified formulation Cleveland KAPLE [facility] 04-03-2005 measles, mumps and rubella virus vaccine Cleveland KAPLE [facility] 04-03-2005 poliovirus vaccine, unspecified formulation Cleveland KAPLE [facility] 07-24-2003 diphtheria, tetanus toxoids and acellular pertussis vaccine Cleveland KAPLE [facility] 07-24-2003 haemophilus influenz ae type b vaccine, PRP-OMP conjugate Cleveland KAPLE [facility] 07-24-2003 hepatitis B vaccine, pediatric or pediatric/adolescent dosage Cleveland KAPLE [facility] 07-24-2003 poliovirus vaccine, unspecified formulation Cleveland KAPLE [facility] 08-30-2002 varicella virus vaccine Cleveland KAPLE [facility] 08-24-2001 hepatitis B vaccine, pediatric or pediatric/adolescent dosage Cleveland KAPLE [facility] 08-24-2001 measles, mumps and rubella virus vaccine Cleveland KAPLE [facility] 08-24-2001 varicella virus vaccine Cleveland KAPLE [facility] 03-11-2000 hepatitis B vaccine, pediatric or pediatric/adolescent dosage Cleveland KAPLE [facility] 01-06-2000 poliovirus vaccine, unspecified formulation Cleveland KAPLE [facility] 1999 poliovirus vaccine, unspecified formulation Cleveland KAPLE [facility] NEGATED: Highlighted row has not occurred!01-22-2023 influenza virus vaccine, unspecified formulation Cleveland RAY [facility] Payers Date Payer Category Payer [facility] BCBS Memb er Subscriber Plan / Payer (Effective 2021-Present) Name: Alejo Overton Relation to Subscriber: Self Name: Alejo Overton Payer ID: Not on file Type: Not on file Address: [address] [place] [id number] 2021 Unknown BCBS BCBS xxxxxx [id number] 2021-Present [phone] [address] [place] [id number] 2021 Unknown [id number] 1999 Unknown [id number] 1999 Unknown [id number] 9.2.727 1999 Unknown [id number] 9.2.727 1999 Unknown [id number] 9.2.727 1999 Unknown [id number] 9.2.727 1999 Unknown [id number] 9.2.1259 1999 Unknown [id number] 9.2.1259 1999 Unknown [id number] 9.2.1259 1999 Unknown [id number] 9.2.1259 1999 Unknown [id number] 9.2.1259 1999 Unknown [id number] 9.2.1259 1999 Unknown [id number] 9.2.1259 Social History Date Type Detail Facility Start: 01-14-2023 End: 05-26-2023 Tobacco smoking status Never smoked tobacco (finding) [facility] Tobacco smoking status Never Fishe [facility] Start: 05-27-2023 End: 07-03-[address] Female [facility] Start: 07-03-2024 End: 05-08-2025 Alcoholic beverage intake Current drinker of alcohol (finding) [facility] Start: 05-27-2023 End: 07-03-2024 History of Social function [facility] Start: 05-26-2023 Alcohol Comment Alcohol: month ly or less. Caffeine: none [facility] Start: 1999 Sex assigned at Not on file N [facility] Start: 01-29-2025 [facility] Functional Status Date Assessment Result Facility 05-04-2024 Functional Status N/A [facility] 03-30-2024 Functional Status N/A [facility] 03-06-2024 Functional Status N/A [facility] 02-03-2024 Functional Status N/A [facility] 01-06-2024 Functional Status N/A [facility] 12-06-2023 Functional Status N/A [facility] 11-04-2023 Functional Status N/A [facility] 05-03-2023 Functional Status N/A [facility] 02-22-2023 Functional Status N/A [facility] 01-22-2023 Functional Status N/A [facility] 01-14-2023 Functional Status N/A [facility] Clinical Notes 01-14-2023 to 07-04-2025 Yesenia Pat LPN - 07/04/2025 2:50 PM DARÍO Uribe - 06/05/2025 2:30 PM Wendy Pat LPN - 05/08/2025 9:10 AM EDUmberto Brice - 04/09/2025 3:10 PM EDTLaboratory Note Date & Type Note Facility 07-04-2025 History of Presen t illness Narrative Reason [...] nursing note reviewed. Exam conducted with a materials research engineer present. Vitals: Estimated body mass index is 33.83 kg/m as calculated from the following: Height as of 05/29/24: 5' 10 . Weight as of this encounter: 235 lb 12.8 oz. BP: 114/70 Patient's last menstrual period was 01/04/2025. ASSESSMENT & PLAN ICD-10-CM 1. Well woman exam with routine gynecological exam Z01.419 2. Vaginal discharge N89.8 3. STD exposure Z20.2 4. Second trimester ([facility]) Z34.92 POCT urinalysis dipstick manually resulted 5. 24 weeks gestation of ([facility]) Z3A.24 POCT urinalysis dipstick manually resulted Return OB/Annual Exam: Patient presents today for a annual exam/routine obstetrics appointment. Patient is currently 24w2d . Patient states she is doing well [...] Jessie Al DO documented in this encounter [facility] 06-05-2025 History of Presen t illness Narrative [...] ASSESSMENT & PLAN ICD-10-CM 1. Second trimester ([facility]) Z34.92 2. 20 weeks gestation of ([facility]) Z3A.20 Return OB: Patient presents today for [...] of: DARÍO Bravo documented in this encounter [facility] 05-08-2025 History of Presen t illness Narrative [...] nursing note reviewed. Exam conducted with a materials research engineer present. Vitals: Estimated body mass index is 32.11 kg/m as calculated from the following: Height as of 05/29/24: 5' 10 . Weight as of this encounter: 223 lb 12.8 oz. BP: 118/72 Patient's last menstrual period was 01/04/2025. ASSESSMENT & PLAN ICD-10-CM 1. Second trimester ([facility]) Z34.92 POCT urinalysis dipstick manually resulted Alpha fetoprotein, maternal Alpha fetoprotein, maternal 2. 16 weeks gestation of ([facility]) Z3A.16 POCT urinalysis dipstick manually resulted Alpha fetoprotein, maternal Alpha fetoprotein, maternal 3. Screening, , for anatomic survey ([facility]) Z36.89 US OB 14+ weeks anatomy scan Patient presents today for a routine obstetrics appointment. Patient is currently 16w1d with a Estimated Date of Delivery: 10/22/25. Pt given msAFP order and anatomy scan order to have obtained. Pt to return in 4 weeks for scheduled OB appt. Documented by Yesenia Pat LPN on behalf of: Jessie Al DO documented in this encounter [facility] 04-09-2025 History of Presen t illness Narrative [...] nursing note reviewed. Exam conducted with a materials research engineer present. Vitals: Estimated body mass index is [...] or undercooked meat, and stay away from [facility]. Patient has been consulted regarding any further [...] Gabby Linder PA-C documented in this encounter [facility] 03-09-2025 History of Presen t illness Narrative [...] or undercooked meat, and stay away from [facility]. Patient has also been advised to [...] Jacinda Storm LPN documented in this encounter [facility] 11-20-2024 History of Presen t illness [...] nursing note reviewed. Exam conducted with a materials research engineer present. Vitals: Estimated body mass index is [...] Jessie Al DO documented in this encounter [facility] 07-03-2024 History of Presen t illness [...] nursing note reviewed. Exam conducted with a materials research engineer present. Vitals: Estimated body mass index is [...] Jessie Al DO documented in this encounter [facility] 05-04-2024 Hospital Discharg e instructions Patient [...] your health care provider or diet and vehicle care specialist (dietitian). This may include: ?Eating fewer [...] provider. Document Revised: 12/21/2021 Document Reviewed: 12/21/2021 [employer] Patient Education 2022 [employer]. Follow Up Care 02/03/2024 08:31:57 With:AURELIO BAJWA FAAFP, DAE Newsome, PED Address: [address] [place] [id number]- When:Within 6 Month(s) [facility] 05-04-2024 Note Patient Education [...] your health care provider or diet and vehicle care specialist (dietitian). This may include: ? Eating [...] ? Getting r (more content not included)... [facility] 03-30-2024 Hospital Discharg e instructions Patient Education [...] numbers. This can be done either in [place]ese ([place] or metric measurements. Note that charts and online BMI calculators are available to help you find your BMI quickly and easily without having to do these calculations yourself. To calculate your BMI in [place]ese ([place] measurements: 1.Measure your weight in pounds [...] Centers for Disease Control and Prevention: www.cdc.gov [place] Heart Association: www.heart.org National Heart, Lung, and Blood [place]: www.nhlbi.nih.gov Summary Body mass index (BMI) is a number that is calculated from a person's weight and height. BMI may help estimate how much of a person's weight is composed of fat. BMI can help identify those who may be at higher risk for certain medical problems. BMI can be measured using Marshallese measurements or metric measurements. BMI charts are used to identify whether you are underweight, normal weight, overweight, or obese. This information is not intended to replace advice given to you by your health care provider. Make sure you discuss any questions you have with your health care provider. Document Revised: 07/17/2020 Document Reviewed: 05/24/2020 [employer] Patient Education 2022 [employer]. Follow Up Care 02/03/2024 08:30:45 With:AURELIO BAJWA FAAFP, Cleveland Santo, DAE, PED Address: [facility] [address], [facility] [place] [address]- When:Within 1 Month(s) [facility] 03-06-2024 Hospital Discharg e [...] your health care provider or diet and vehicle care specialist (dietitian). This may include: ?Eating fewer [...] provider. Document Revised: 12/21/2021 Document Reviewed: 12/21/2021 [employer] Patient Education 2022 [employer]. Follow Up Care 02/03/2024 08:29:28 With:AURELIO BAJWA FAAFP, DAE Newsome, PED Address: [place] [address]- When:Within 1 Month(s) [facility] 02-03-2024 Hospital Discharg e instructions [...] your health care provider or diet and vehicle care specialist (dietitian). This may include: ?Eating fewer [...] provider. Document Revised: 12/21/2021 Document Reviewed: 12/21/2021 [employer] Patient Education 2022 [employer]. Follow Up Care 11/04/2023 08:09:51 With:AURELIO FERRAROFP, Cleveland Santo, DAE, PED Address: [address] [place] [address] [facility] [place] [address]- When:Within 1 Month(s) [facility] 01-06-2024 Hospital Discharg e [...] frozen fruits, and frozen vegetables. Avoid buying pvkhb-hb-fgr foods, such as pre-cut fruits and vegetables and pre-made salads. If possible, shop around to discover where you can find the best prices. Consider other retailers such as dollar stores, larger wholesale stores, local fruit and vegetable stands, and farmers markets. Do not shop when you are [...] provider. Document Revised: 08/07/2021 Document Reviewed: 08/07/2021 [employer] Patient Education 2022 [employer]. Follow Up Care 11/04/2023 08:09:40 With:AURELIO BAJWA FAAFP, DAE Newsome, PED Address: [address], [place] [address]- When:Within 1 Month(s) [facility] 12-06-2023 Hospital Discharg e instructions [...] including vitamins, herbs, eye drops, creams, and xvkv-xdb-senibxx medicines. Any problems you or family members [...] and water are not available, use hand catering truck operator. ?Change your dressing as told by your [...] or a bad smell. General instructions Take zfla-owz-opgnkbd and prescription medicines only as told by [...] and water are not available, use hand catering truck operator. Contact your health care provider if you have problems or questions. This information is not intended to replace advice given to you by your health care provider. Make sure you discuss any questions you have with your health care provider. Document Revised: 07/16/2022 Document Reviewed: 07/16/2022 [employer] Patient Education 2022 [employer]. Follow Up Care 11/04/2023 08:09:24 With:AURELIO BAJWA FAAFP, Cleveland Santo, DAE, PED Address: [address], [facility] [place] [address]- When:Within 1 Month(s) [facility] 11-04-2023 Hospital Discharg e [...] your health care provider or diet and vehicle care specialist (dietitian). This may include: ?Eating fewer [...] provider. Document Revised: 12/21/2021 Document Reviewed: 12/21/2021 [employer] Patient Education 2022 [employer]. Follow Up Care 05/03/2023 08:02:20 With:AURELIO BAJWA FAAFP, DAE Newsome, PED Address: [place] [address]- When:Within 1 Month(s) [facility] 05-03-2023 Hospital Discharg e [...] your health care provider or diet and vehicle care specialist (dietitian). This may include: ?Eating fewer [...] provider. Document Revised: 12/21/2021 Document Reviewed: 12/21/2021 [employer] Patient Education 2022 [employer]. Follow Up Care 01/22/2023 13:52:08 With:AURELIO FERRAROFP, Cleveland Santo, DAE, PED Address: [address] [place] [address] [place], [facility] [place] [address]- When:Within 6 Month(s) [facility] 02-22-2023 Hospital Discharg e [...] frozen fruits, and frozen vegetables. Avoid buying xshpt-hx-upk foods, such as pre-cut fruits and vegetables and pre-made salads. If possible, shop around to discover where you can find the best prices. Consider other retailers such as [employer] stores, larger wholesale stores, local fruit and vegetable stands, and farmers markets. Do not shop when you are [...] 06/28/2015 Document Revised: 10/26/2018 Document Reviewed: 10/26/2018 [employer] Patient Education 2020 [employer]. Follow Up Care 01/22/2023 13:49:16 With:AURELIO BAJWA FAAFP, DAE Newsome, PED Address: [address] [place] [address]- When:Within 1 Month(s) [facility] 01-22-2023 Hospital Discharg e [...] your health care provider or diet and vehicle care specialist (dietitian). This may include: ?Eating fewer [...] 11/27/2011 Document Revised: 11/07/2018 Document Reviewed: 11/07/2018 [employer] Patient Education 2020 [employer]. Follow Up Care 01/21/2023 16:09:28 With:AURELIO BAJWA FAAFP, Cleveland Santo, DAE, PED Address: [address] [place] [id number]- When:Within 1 Month(s) [facility] 01-14-2023 Evaluation + Plan note Future Scheduled TestsGlucose Fasting 01/14/23Lipid Panel 01/14/23 [facility] 01-14-2023 Hospital Discharg e [...] frozen fruits, and frozen vegetables. Avoid buying mthab-pf-pub foods, such as pre-cut fruits and vegetables and pre-made salads. If possible, shop around to discover where you can find the best prices. Consider other retailers such as [employer] stores, larger wholesale stores, local fruit and vegetable [employer], and [employer] markets. Do not shop when you are [...] 06/28/2015 Document Revised: 10/26/2018 Document Reviewed: 10/26/2018 [employer] Patient Education 2020 [employer]. Follow Up Care 12/01/2022 10:38:14 With:Cleveland RAY DO, FAAFP, FAM, PED Address: [place] [address]- When:Within 1 Year(s) [facility] Evaluation + Plan note Future Appointments Appointment Date:02/22/2023 02:40:00 PM Scheduled Provider:Cleveland RAY DO, FAAFP Location:[facility] Appointment Type: Open Appointment Date:03/26/2023 01:20:00 PM Scheduled Provider:Cleveland RAY DO, FAAFP Location:[facility] Appointment Type: Open Appointment Date:04/30/2023 01:20:00 PM Scheduled Provider:Cleveland RAY DO, FAAFP Location:[facility] Appointment Type: Open [facility] Evaluation + Plan note Future Appointments Appointment Date:03/26/2023 01:20:00 PM Scheduled Provider:Cleveland RAY DO, FAAFP Location:[facility] Appointment Type: Open Appointment Date:04/30/2023 01:20:00 PM Scheduled Provider:Cleveland RAY DO, FAAFP Location:[facility] Appointment Type: Open [facility] Evaluation + Plan note Future Appointments Appointment Date:11/04/2023 07:40:00 AM Scheduled Provider:Cleveland RAY DO, FAAFP Location:[facility] Appointment Type:[facility] Evaluation + Plan note Future Appointments Appointment Date:12/06/2023 08:20:00 AM Scheduled Provider:Cleveland RAY DO, FAAFP Location:[facility] Appointment Type: Open Appointment Date:01/06/2024 08:20:00 AM Scheduled Provider:Cleveland RAY DO, FAAFP Location:[facility] Appointment Type: Open Appointment Date:02/03/2024 08:00:00 AM Scheduled Provider:Cleveland RAY DO, FAAFP Location:[facility] Appointment Type:[facility] Evaluation + Plan note Future Appointments Appointment Date:01/06/2024 08:20:00 AM Scheduled Provider:Cleveland RAY DO, FAAFP Location:[facility] Appointment Type: Open Appointment Date:02/03/2024 08:00:00 AM Scheduled Provider:Cleveland RAY DO, FAAFP Location:[facility] Appointment Type:[facility] Evaluation + Plan note Future Appointments Appointment Date:02/03/2024 08:00:00 AM Scheduled Provider:Cleveland RAY DO, FAAFP Location:[facility] Appointment Type:[facility] Evaluation + Plan note Future Appointments Appointment Date:03/06/2024 07:40:00 AM Scheduled Provider:Cleveland RAY DO, FAAFP Location:[facility] Appointment Type: Open Appointment Date:03/30/2024 08:20:00 AM Scheduled Provider:Cleveland RAY DO, FAAFP Location:[facility] Appointment Type: Open Appointment Date:05/04/2024 08:20:00 AM Scheduled Provider:Cleveland RAY DO, FAAFP Location:[facility] Appointment Type:[facility] Evaluation + Plan note Future Appointments Appointment Date:03/30/2024 08:20:00 AM Scheduled Provider:Cleveland RAY DO, FAAFP Location:[facility] Appointment Type:FM Open Appointment Date:05/04/2024 08:20:00 AM Scheduled Provider:Cleveland RAY DO, FAAFP Location:[facility] Appointment Type:FM Open [facility] Evaluation + Plan note Future Appointments Appointment Date:05/04/2024 08:20:00 AM Scheduled Provider:Cleveland RAY DO, FAAFP Location:[facility] Appointment Type: Open [facility] Evaluation note Diagnosis Encounter for repeat Pap smear due to previous insufficient cervical cells [facility] Diagnosis Nexplanon removal [facility]* Diagnosis Missed menses , unspecified gestational age Encounter for supervision of normal first in first trimester [facility]* Diagnosis First trimester - Primary state, incidental [facility]* Diagnosis Second trimester ([facility]) state, incidental 16 weeks gestation of ([facility]) Screening, , for anatomic survey ([facility]) Encounter for anatomic survey [facility]* Diagnosis Second trimester ([facility]) state, incidental 20 weeks gestation of ([facility]) Encounter for follow-up ultrasound of anatomy ([facility]) documented [facility]* Diagnosis Well woman exam with routine gynecological exam Routine gynecological examination Vaginal discharge Leukorrhea, not specified as infective STD exposure Second trimester ([facility]) state, incidental 24 weeks gestation of ([facility]) Diabetes mellitus screening Screening for diabetes mellitus [facility] Narrative No data available for this section [facility] Hospital Discharge instructions No data available for this section [facility] No data available for this section [facility] Summary Purpose Family History No Family History Records Found Advance Directives No Advanced Directives Records FoundNo Advanced Directives Records Found Additional Source Comments Patient Care team informatio n (unrecognized section and content) Retouching Operator Relationship Specialty Start Date End Date Cleveland Ray MD [address] [place] [address] PCP - General Family Medicine 05/27/23 Retouching Operator Relationship Specialty Start Date End Date Cleveland Ray MD [address] [place] [address] PCP - General Family Medicine 05/27/23 Retouching Operator Relationship Specialty Start Date End Date Cleveland Ray MD [address] [place] [address] PCP - General Family Medicine 05/27/23 Retouching Operator Relationship Specialty Start Date End Date Cleveland Ray MD [address] [place] [address] PCP - General Family Medicine 05/27/23 Retouching Operator Relationship Specialty Start Date End Date Cleveland Ray MD [address] [place] [address] PCP - General Family Medicine 05/27/23 Retouching Operator Relationship Specialty Start Date End Date Clevelnad Ray MD [address] [place] [address] PCP - General Family Medicine 05/27/23 Retouching Operator Relationship Specialty Start Date End Date Cleveland Ray MD [address] [place] [address] PCP - General Family Medicine 05/27/23 Retouching Operator Relationship Specialty Start Date End Date Cleveland Ray MD [address] [place] [address] PCP - General Family Medicine 05/27/23 Retouching Operator Relationship Specialty Start Date End Date Cleveland Ray MD [address] [place] [address] PCP - General Family Medicine 05/27/23 Reason for Visit (unrecogniz ed section and content) Reason Comments Well Women Visit Reason Comments Nexplanon Removal Reason Comments Amenorrhea Reason Comments Routine Visit INFORMATION SOURCE (unrecogn ized section and content) DATE CREATED AUTHOR 01/31/2025 [facility] DATE CREATED AUTHOR AUTHOR'S ORGANMANOJ ATION 07/06/2025 [facility] FOR RECORDS PERTAINING TO PATIENTS WHO ARE [...] BE BASED ON THE PRIMARY CLINICAL RECORDS. [facility] [employer] [facility]. provides no warranty or guarantee of the accuracy or completeness of information in this document.
[2025-07-18 08:56] LABS: Glucose 1 Hour 122 mg/dL (<130)
[2025-07-18 09:00] LABS: Hematocrit 33.9 % (36.0-48.0); Hemoglobin 11.2 g/dL (12.0-16.0); Immature Granulocytes Abs Auto 0.09 10^3/uL (0.00-0.03); Immature Granulocytes Pct Auto 1.0 % (0.0-0.5); Lymphocytes Absolute Auto 1.7 10^3/uL (1.2-3.8); Mean Corpuscular HGB Conc 33.0 g/dL (29.9-35.2); Mean Corpuscular Hemoglobin 28.0 pg (26.7-34.0); Mean Corpuscular Volume 84.8 fL (81.0-99.0); Platelet Count 189 10^3/uL (150-450); Red Blood Count 4.00 10^6/uL (4.20-5.40); White Blood Count 9.3 10^3/uL (4.0-11.0)
== END 2025-07-18 07:28 | disposition home or self-care (01) ==
LOC: LAB 07:28
PROVIDERS: Visit Provider Obstetrics & Gynecology
DX: Z13.1 Encounter for screening for diabetes mellitus (principal)
CPT/HCPCS: 36415; 82950; 85025

== ENCOUNTER 2025-08-14 19:03 | Outpatient (OUT) | payer BC, SELFPAY ==
--- OUTSIDE RECORDS SUMMARY | 2025-08-01 15:00 | XMS_ITS | Encounter Summary ---
Author Organization [facility] Address [address] [place] [address] Care Team Providers Care Children'S Tutor Nursery Name Role Phone Mc Ray MD Primary Care Provider [phone] Reason for Visit * Reason Comments Routine Visit Encounter Details Date Type Department Care Team (Latest Contact Info) Description 08/01/2025 3:00 PM EDT Routine [facility] [address] [facility] [place] [id number] Gabby Contreras PA [address] [place] [address] size inconsistent with dates ([facility]) (Primary Dx); Third trimester ([facility]); 28 weeks gestation of ([facility]) Social History Tobacco Use Types Packs/Day Years [...] Sign Reading Time Taken Comments Blood Pressure 112/70 08/01/2025 3:04 PM EDT Pulse - - Temperature - - Respiratory Rate - - Oxygen Saturation - - Inhaled Oxygen Concentration - - Weight 109 kg (241 lb) 08/01/2025 3:04 PM EDT Height - - Body Mass Index 34.58 05/29/2024 9:13 AM EDT documented in this encounter Progress Notes * DARÍO Bravo - 08/01/2025 3:00 PM EDT Reason for Appointment: Patient ID: [...] nursing note reviewed. Exam conducted with a manager state present. Vitals: Estimated body mass index is 34.58 kg/m?? as calculated from the following: Height as of 05/29/24: 5' 10 . Weight as of this encounter: 241 lb. BP: 112/70 Patient's last menstrual period was 01/04/2025. ASSESSMENT & PLAN ICD-10-CM 1. Third trimester ([facility]) Z34.93 POCT urinalysis dipstick manually resulted 2. 28 weeks gestation of ([facility]) Z3A.28 Return OB: Patient presents today for a routine obstetrics appointment. Patient is currently 28w2d . Patient states she is doing well but has complaints of being tired due to current . Patient has verbalizes frequent movement. labor precautions was discussed/given and patient was instructed to perform kick counts three times a day. Orders Placed This Encounter Procedures POCT urinalysis dipstick manually resulted Follow Up: Patient is to return to office in 2 week for routine OB appointment. Documented by Kristy Goel NP on behalf of: DARÍO Bravo documented in this encounter Plan of Treatment Upcoming Encounters Date Type Department Care Team (Late st Contact Info) Description 08/15/2025 11:20 AM EDT Routine [facility] [address] [facility] [place] [address] Kristy Goel NP [address] [place] [id number] Scheduled Orders Name Type Priority Associated Diagnoses Orde r Schedule US OB follow up transabdominal approach Imaging Routine size inconsistent with dates ([facility]) Expected: 08/01/2025, Expires: 12/01/2025 documented as of this encounter Procedures Procedure Name Priority Date/Time Associated Diagnosis Comments POCT URINALYSIS DIPSTICK Routine 08/01/2025 3:13 PM EDT Third trimester ([facility]) documented in this encounter Results * POCT urinalysis dipstick manually resulted (08/01/2025 3:13 PM EDT) Color, UA Yellow Clarity, UA Clear Glucose, UA Negative Negative - 1999(110) ++++ mg/dL Bilirubin, UA Negative Negative - 4(70) +++ mg/dL Ketones, UA Negative Negative - 160(16) ++++ mg/dL Spec Grav, UA 1.015 1 - 1.03 Blood, UA Negative Negative - 50 Ming/mcL pH, UA 6.0 5 - 9 Protein, UA Negative Negative - 1999(20) ++++ mg/dL Urobilinogen, UA 0.2 0.2 - 12 mg/dL Leukocytes, UA Negative Negative - 500+++ Manpreet/mcL Nitrite, UA Negative Negative - Positive Urine 08/01/2025 3:13 PM EDT Gabby CHANEL POINT OF CARE TEST ENTER/EDIT OR DERABLES Final Result documented in this encounter Visit Diagnoses Diagnosis size inconsistent with dates ([facility])- Primary Third trimester ([facility]) state, incidental 28 weeks gestation of ([facility]) documented in this encounter Care Teams Children'S Tutor Nursery Relationship Specialty Start Date End Date Mc Ray MD [address] [facility] [place] [address] PCP - General Family Medicine 05/27/23 documented as of this encounter
--- NOTE | 2025-08-14 19:05 | US_ITS ---
The [address] [address] Patient Name: ALEJO OVERTON MRN: [id number] date: 2000 Sex: F Assigned Patient Location: Current Patient Location: Accession/Order Number: [id number] Exam Date: 08/14/2025 19:06 Report Date: 08/15/2025 07:51 At the request of: JEOVANY BASS Procedure: US OB growth ULTRASOUND OB GROWTH COMPARISON: 06/12/2025 and 06/04/2025 CLINICAL DATA: size inconsistent with dates There is a single live intrauterine gestation in cephalic presentation. There is cardiac and somatic activity with heart rate of 141 beats per minutes. The imaged placenta is anterior. The amniotic fluid index measures 16.52 cm. This is in upper normal range. The following measurements were obtained: Biparietal diameter 7.6 cm 30 weeks 4 days 51% Head circumference 28.7 cm 31 weeks 3 days 54% Abdominal circumference 26.9 cm 31 weeks 0 days 70% Femur length 6.0 cm 31 weeks 1 day 65% The composite ultrasound age based these measurements is 31 weeks 0 days +/- 2 weeks 1 day. The estimated date of delivery is October 16, 2025. The estimated weight is 3 lbs. 12 oz. +/- ounces (70%). US/US OB growth IMPRESSION: SINGLE LIVE INTRAUTERINE GESTATION WITH TODAY'S ULTRASOUND AGE OF 31 WEEKS 0 DAYS. Impression dictated by: Yesenia Rios M.D. 08/15/2025 7:51 AM Dictation Location: [place] [address] Electronically authenticated by: [id number] Y Date: 08/15/2025 07:51
--- OUTSIDE RECORDS SUMMARY | 2025-08-14 19:05 | XMS_ITS | Encounter Summary ---
Author Organization [facility] Address [address] [place] [address] Care Team Providers Care Cake Washer Name Role Phone Mc Ray MD Primary Care Provider [phone] Encounter Details Date Type Department Care Team (Late st Contact Info) Description 03/26/2025 Abstract [facility] [address] [place] [address] Alexsander Al DO [address] [place], [facility] Social History Tobacco Use Types Packs/Day [...] Info) Description 08/15/2025 11:20 AM EDT Routine [facility] [address] [place] [address] Kristy Goel, RONEN [address] [place] [address] documented as of this encounter Visit Diagnoses Not on filedocumented in this encounter Care Teams Cake Washer Relationship Specialty Start Date End Date Mc Ray MD [address] [place] [address] PCP - General Family Medicine 05/27/23 documented as of this encounter
--- OUTSIDE RECORDS SUMMARY | 2025-08-14 19:05 | XMS_ITS | Encounter Summary ---
Author Organization [facility] Address [address] [place] [address] Care Team Providers Care Medtronics Technician Name Role Phone Mc Ray MD Primary Care Provider Encounter Details Date Type Department Care Team (Late st Contact Info) Description 08/01/2025 Bamboo flowsheet [facility] [address] [place] [address] Gabby Contreras PA [address] [place], [place] [address] Social History Tobacco Use Types Packs/Day Years [...] 11:20 AM EDT Routine [facility] [address] [facility] [place] [address] Kristy Goel, RONEN [address] [place] [address] documented as of this encounter Visit Diagnoses Not on filedocumented in this encounter Care Teams Medtronics Technician Relationship Specialty Start Date End Date Mc Ray MD [address] [place] [address] PCP - General Family Medicine 05/27/23 documented as of this encounter
--- OUTSIDE RECORDS SUMMARY | 2025-08-14 19:05 | XMS_ITS | Encounter Summary ---
Author Organization [facility] Address [address] [place] [address] Care Team Providers Care Boilermaking Supervisor Name Role Phone Mc Ray MD Primary Care Provider [phone] Encounter Details Date Type Department Care Team (Late st Contact Info) Description 03/28/2025 Abstract [facility] [address] [place] [address] Alexsander Al DO [address] [place], [facility] Social History Tobacco Use Types Packs/Day Years [...] on filedocumented in this encounter Care Teams Boilermaking Supervisor Relationship Specialty Start Date End Date Mc Ray MD [address] [place] [address] PCP - General Family Medicine 05/27/23 documented as of this encounter
--- OUTSIDE RECORDS SUMMARY | 2025-08-14 19:05 | XMS_ITS | Encounter Summary ---
Author Organization [facility] Address [address] [place] [address] Care Team Providers Care Electrical And Electronic Assembler Name Role Phone Mc Ray MD Primary Care Provider Encounter Details Date Type Department Care Team (Late st Contact Info) Description 07/13/2024 Orders Only [facility] [address] [facility] [address] Elise Jain LPN [address] [facility] [place] [address] Social History Tobacco Use Types Packs/Day Years [...] Info) Description 08/15/2025 11:20 AM EDT Routine [facility] [address] [place] [address] Kristy Goel, RONEN [address] [facility] [place] [address] documented as of this encounter Procedures Procedure [...] on filedocumented in this encounter Care Teams Electrical And Electronic Assembler Relationship Specialty Start Date End Date Mc Ray MD [address] [place] [address] PCP - General Family Medicine 05/27/23 documented as of this encounter
--- OUTSIDE RECORDS SUMMARY | 2025-08-14 19:05 | XMS_ITS | Encounter Summary ---
Author Organization [facility] Address [address] [place] [address] Care Team Providers Care Firmware Software Verification Engineer Name Role Phone Mc Ray MD Primary Care Provider Encounter Details Date Type Department Care Team (Late st Contact Info) Description 07/12/2025 Orders Only [facility] [address] [place] [address] [place] [address] Jacinda Storm LPN [address] [place] [id number] Social History Tobacco Use Types Packs/Day Years [...] 08/15/2025 11:20 AM EDT Routine [facility] [address] [facility] [place] [address] Kristy Goel, RONEN [address] [facility] [place] [address] documented as of this encounter Procedures [...] on filedocumented in this encounter Care Teams Firmware Software Verification Engineer Relationship Specialty Start Date End Date Mc Ray MD [address] [place] [address] PCP - General Family Medicine 05/27/23 documented as of this encounter
--- OUTSIDE RECORDS SUMMARY | 2025-08-14 19:05 | XMS_ITS | Encounter Summary ---
Author Organization [facility] Address [address] [place] [address] Care Team Providers Care Lock Up Worker Name Role Phone Mc Rya MD Primary Care Provider Encounter Details Date Type Department Care Team (Late st Contact Info) Description 07/13/2024 Abstract [facility] [address] [facility] [place] [address] Alexsander Al DO [address] [facility] [address] [place], [place] [address] Social History Tobacco Use Types Packs/Day Years [...] 11:20 AM EDT Routine [facility] [address] [facility] [place] [address] Kristy Goel, RONEN [address] [facility] [address] [place] [address] documented as of this encounter Visit Diagnoses Not on filedocumented in this encounter Care Teams Lock Up Worker Relationship Specialty Start Date End Date Mc Ray MD [address] [place] [address] PCP - General Family Medicine 05/27/23 documented as of this encounter
--- OUTSIDE RECORDS SUMMARY | 2025-08-14 19:05 | XMS_ITS | Encounter Summary ---
Author Organization [facility] Address [address] [place] [address] Care Team Providers Care Shake Loader Name Role Phone Mc Ray MD Primary Care Provider Encounter Details Date Type Department Care Team (Late st Contact Info) Description 03/19/2025 Abstract [facility] [address] [place] [address] Alexsander Al DO [address] [place], [facility] Social History Tobacco Use Types Packs/Day [...] EDT Routine [facility] [address] [place] [address] Kristy Goel, RONEN [address] [place] [address] documented as of this encounter Visit Diagnoses Not on filedocumented in this encounter Care Teams Shake Loader Relationship Specialty Start Date End Date Mc Ray MD [address] [place] [address] PCP - General Family Medicine 05/27/23 documented as of this encounter
--- OUTSIDE RECORDS SUMMARY | 2025-08-14 19:06 | XMS_ITS | Clinical Summary ---
Author Organization [facility] Address [address] [place] [address] Care Team Providers Care Manager Subway Name Role Phone Cleveland Ray MD Primary Care Provider [phone] Allergies No known active allergies Medications No known medications Encounters Date Type Department Care Team Description 08/01/2025 3:00 PM EDT Routine [facility] [address] [place] [address] Gabby Contreras PA size inconsistent with dates ([facility]) (Primary Dx); Third trimester ([facility]); 28 weeks gestation of ([facility]) 08/01/2025 Bamboo flowsheet [facility] [address] [address] [place] [address] Gabby Contreras PA 07/18/2025 Clinisync Result Encounter [facility] External Department Unsolicited Jessie Al, DO 07/12/2025 Orders Only [facility] [address] [place] [address] Jacinda Storm LPN 07/06/2025 Telephone [facility] [address] [place] [address] Jessie Al, DO 07/04/2025 2:50 PM EDT Routine [facility] [address] [place] [address] Jessie Al, DO Well woman exam with routine gynecological exam; Vaginal discharge; STD exposure; Second trimester ([facility]); 24 weeks gestation of ([facility]); Diabetes mellitus screening 07/04/2025 Clinisync Result Encounter [facility] External Department Unsolicited Jessie Al, DO 07/04/2025 External Result Encounter [facility] External Department Unsolicited Jessie Al, DO 07/04/2025 Bamboo flowsheet [facility] [address] [facility] [place] [address] Jessie Al, DO 06/13/2025 Clinisync Result Encounter [facility]S External Department Unsolicited Jessie Al, DO 06/06/2025 Telephone [facility] [address] [place] [address] Jessie Al, DO 06/05/2025 2:30 PM EDT Routine [facility] [address] [facility] [place] [address] Gabby Contreras PA Second trimester ([facility]); 20 weeks gestation of ([facility]); Encounter for follow-up ultrasound of anatomy ([facility]) 06/05/2025 Bamboo flowsheet [facility] [address] [facility] [place] [address] Gabby Contreras PA 06/04/2025 Clinisync Result Encounter [facility] External Department Unsolicited Jessie Al, DO 06/04/2025 Clinisync Result Encounter [facility] External Department Unsolicited Jessie Al, DO 05/21/2025 Clinisync Result Encounter [facility] External Department Unsolicited Jessie Al, DO from Last 3 Months Family History [...] (241 lb) 08/01/2025 3:04 PM EDT Height 177.8 cm (5' 10 ) 05/29/2024 9:13 AM EDT Body Mass Index 34.58 05/29/2024 9:13 AM EDT Plan of Treatment Upcoming Encounters Date Type Department Care Team (Late st Contact Info) Description 08/15/2025 11:20 AM EDT Routine [facility] [address] [place] [address] Kristy Goel, RONEN [address] [place] [address] Procedures Procedure Name Priority Date/Time Associated Diagnosis Comments POCT URINALYSIS DIPSTICK Routine 08/01/2025 3:13 PM EDT Third trimester ([facility]) ALL CBC WITH AUTO DIFF Routine 07/18/2025 8:33 AM EDT GLUCOSE 1 HOUR Routine 07/18/2025 8:33 AM EDT RECURRENT VAGINITIS (HTRX) Routine 07/04/2025 4:16 PM EDT POCT URINALYSIS DIPSTICK Routine 07/04/2025 3:14 PM EDT Second trimester ([facility]) 24 weeks gestation of ([facility]) IGP,APTIMA HPV,AGE GDLN Routine 07/04/2025 2:52 PM EDT PAP SMEAR Routine 07/04/2025 12:00 AM EDT US OB INCOMPLETE ANATOMY 06/13/2025 9:20 AM EDT US OB CERVICAL LENGTH 06/04/2025 9:22 PM EDT US OB ANATOMY 06/04/2025 9:22 PM EDT AFP, SERUM, OPEN SPINA BIFIDA Routine 05/21/2025 8:39 AM EDT from Last 3 Months Results * POCT urinalysis dipstick manually resulted (08/01/2025 3:13 PM EDT) Only the most recent of2 [...] Negative - 2000(20) ++++ mg/dL Urobilinogen, UA 0.2 0.2 - 12 mg/dL Leukocytes, UA Negative Negative - 500+++ Manpreet/mcL Nitrite, UA Negative Negative - Positive Urine 08/01/2025 3:13 PM EDT Gabby CHANEL POINT OF CARE TEST ENTER/EDIT OR DERABLES Final Result * GLUCOSE 1 HOUR (07/18/2025 8:33 AM EDT) GLUCOSE 1 HOUR 122 <130 mg/dL TB 07/18/2025 8:33 AM EDT 07/18/2025 8:34 AM EDT Narrative JIM - 07/18/2025 8:57 AM EDT us Jessie Al DO LAB BLOOD ORDERABLES Final Resul t JIM TB * (ABNORMAL) ALL CBC WITH AUTO DIFF (07/18/2025 8:33 AM EDT) Pathologist [facility] TB WBC 9.3 4.0 - 11.0 10 3/uL TBH TBH RBC 4.00(L) 4.20 - 5.40 10 6/uL TBH TBH HGB 11.2(L) 12.0 - 16.0 g/dL TBH TBH HCT 33.9(L) 36.0 - 48.0 % TBH TBH MCV 84.8 81.0 - 99.0 fL TBH TBH MCH 28.0 26.7 - 34.0 pg TBH TBH MCHC 33.0 29.9 - 35.2 g/dL TBH TBH RDW 13.2 11.0 - 15.0 % TBH TBH PLT 189 150 - 450 10 3/uL TBH TBH MPV 9.9 9.5 - 13.5 fL TBH NEUTROPHILS PERCENT AUTO 74.4 43.0 - 75.0 % TBH LYMPHOCYTES PERCENT AUTO 18.5(L) 20.5 - 60.0 % TBH MONOCYTES PERCENT AUTO 5.6 1.7 - 12.0 % TBH TBH EO % 0.4(L) 0.9 - 7.0 % TBH BASOPHILS PERCENT AUTO 0.1(L) 0.2 - 2.0 % TBH IMMATURE GRANULOCYTES PCT AUTO 1.0(H) 0.0 - 0.5 % TBH NEUTROPHILS ABSOLUTE AUTO 6.9(H) 1.4 - 6.5 10 3/uL TBH LYMPHOCYTES ABSOLUTE AUTO 1.7 1.2 - 3.8 10 3/uL TBH MONOCYTES ABSOLUTE AUTO 0.5 0.3 - 0.8 10 3/uL TBH TBH EO # 0.0 0.0 - 0.7 10 3/uL TBH BASOPHILS ABSOLUTE AUTO 0.0 0.0 - 0.1 10 3/uL TBH IMMATURE GRANULOCYTES ABS AUTO 0.09(H) 0.00 - 0.03 10 3/uL TBH 07/18/2025 8:33 AM EDT 07/18/2025 8:34 AM EDT Narrative LIBBYISYNC - 07/18/2025 9:03 AM EDT us Jessie Servando DO CLINISYNC Final Result CLINISYNC [facility] * (ABNORMAL) RECURRENT VAGINITIS (HTRX) (07/04/2025 4:16 PM EDT) [facility] ATOPOBIUM VAGINAE 19.164(A) 19.961 - 24.689 ppm 07/06/2025 5:46 AM EDT [facility] ATOPOBIUM VAGINAE Detected(A) 19.961 - 24.689 ppm 07/06/2025 5:46 AM EDT [facility] BVAB 2,3 (BACTERIAL VAGINOSIS ASSOCIATED BACTERIA 2, 3); MOBILUNCUS SPP 0 19.961 - 24.689 ppm 07/06/2025 5:46 AM EDT [facility] BVAB 2,3 (BACTERIAL VAGINOSIS ASSOCIATED BACTERIA 2, 3); MOBILUNCUS SPP Not Detected 19.961 - 24.689 ppm 07/06/2025 5:46 AM EDT [facility] IGOR ALBICANS, PARAPSILOSIS, TROPICALIS 0 23.000 - 30.347 ppm 07/06/2025 5:46 AM EDT [facility] IGOR ALBICANS, PARAPSILOSIS, TROPICALIS Not Detected 23.000 - 30.347 ppm 07/06/2025 5:46 AM EDT [facility] IGOR GLABRATA 0 23.000 - 31.618 ppm 07/06/2025 5:46 AM EDT [facility] IGOR GLABRATA Not Detected 23.000 - 31.618 ppm 07/06/2025 5:46 AM EDT [facility] IGOR KRUSEI 0 23.000 - 30.873 ppm 07/06/2025 5:46 AM EDT [facility] IGOR KRUSEI Not Detected 23.000 - 30.873 ppm 07/06/2025 5:46 AM EDT [facility] CHLAMYDIA TRACHOMATIS 0 23.000 - 31.586 ppm 07/06/2025 5:46 AM EDT [facility] CHLAMYDIA TRACHOMATIS Not Detected 23.000 - 31.586 ppm 07/06/2025 5:46 AM EDT [facility] GARDNERELLA VAGINALIS 15.73(A) 19.961 - 24.689 ppm 07/06/2025 5:46 AM EDT [facility] GARDNERELLA VAGINALIS Detected(A) 19.961 - 24.689 ppm 07/06/2025 5:46 AM EDT [facility] MEGASPHAERA (TYPES 1, 2) 14.97(A) 19.961 - 24.689 ppm 07/06/2025 5:46 AM EDT [facility] MEGASPHAERA (TYPES 1, 2) Detected(A) 19.961 - 24.689 ppm 07/06/2025 5:46 AM EDT [facility] NEISSERIA GONORRHOEAE 0 23.000 - 32.587 ppm 07/06/2025 5:46 AM EDT [facility] NEISSERIA GONORRHOEAE Not Detected 23.000 - 32.587 ppm 07/06/2025 5:46 AM EDT [facility] TRICHOMONAS VAGINALIS 0 23.000 - 31.995 ppm 07/06/2025 5:46 AM EDT [facility] TRICHOMONAS VAGINALIS Not Detected 23.000 - 31.995 ppm 07/06/2025 5:46 AM EDT [facility] MYCOPLASMA GENITALIUM 0 19.961 - 24.689 ppm 07/06/2025 5:46 AM EDT [facility] MYCOPLASMA GENITALIUM Not Detected 19.961 - 24.689 ppm 07/06/2025 5:46 AM EDT [facility] ERMB, C; MEFA 23.066(A) 23.000 - 27.500 ppm 07/06/2025 5:46 AM EDT [facility] ERMB, C; MEFA Detected(A) 23.000 - 27.500 ppm 07/06/2025 5:46 AM EDT [facility] TET B, TET M 24.724(A) 23.000 - 27.500 ppm 07/06/2025 5:46 AM EDT [facility], TET M Detected(A) 23.000 - 27.500 ppm 07/06/2025 5:46 AM EDT [facility] Tissue 07/04/2025 4:16 PM EDT 07/06/2025 1:15 AM EDT us Jessie Al DO LAB BLOOD ORDERABLES Final Resul t [facility] [address] [address] * IGP,APTIMA HPV,AGE GDLN (07/04/2025 2:52 PM EDT) AGE GDLN ACOG TESTING Note . [facility] Comment: TESTS RESULT FLAG UNITS REF RANGE LAB Clinician Provided Cytology Information Source.............Vagina Other.............. No. of containers..01 ThinPrep Vial Age Algo ACOG Sherice... FLAG LEGEND: L-Low Normal,H-High Normal,LL-Alert Low,HH-Alert High <-Panic Low,>-Panic High,A-Abnormal,AA-Critical Abnormal Performed at: 01 =G [address] [place] [address] Gabi Graves MD, IGP, RFX APTIMA HPV ASCU Note . [facility] Comment: TESTS RESULT FLAG UNITS REF RANGE LAB DIAGNOSIS: 02 NEGATIVE FOR INTRAEPITHELIAL LESION OR MALIGNANCY. Specimen adequacy: 02 Satisfactory for evaluation. No endocervical component is identified. An endocervical component is not commonly seen in the patient. Performed by: Pablo Piper, Project Architect ([facility]) . 02 Note: Note 02 The Pap [...] <-Panic Low,>-Panic High,A-Abnormal,AA-Critical Abnormal Performed at: [address] [address] Gabi Graves MD, Performed at: = - [facility] [address] [id number] Wagon Driver: Gabi Graves MD, Phone: [phone] Performed at: - [facility] [id number] Wagon Driver: Gabi Graves MD, Phone: [phone] 07/04/2025 2:52 PM EDT 07/04/2025 8:20 PM EDT Narrative CLINISYNC - 07/11/2025 10:08 AM EDT SPATULA-ALONE VAGINA Jessie Servando DO LAB BLOOD ORDERABLES Final Resul t Performing Organization Address [facility]/ZIP Co de Phone Number CLINISYNC TB * Pap Smear (07/04/2025 12:00 AM EDT) Swab Cervical swab / Unknown Jessie Servando DO LAB CYTOLOGY ORDERABLES Final Re sult EXTERNAL LAB * US OB INCOMPLETE ANATOMY (06/13/2025 9:20 AM EDT) Anatomical Region Laterality Modality Other 06/13/2025 9:20 AM EDT Narrative 06/13/2025 9:23 AM EDT The [address] [address] Ultrasound Report Signed Patient: ALEJO OVERTON MR#: [id number] : 2000 Acct:[id number] Age/Sex: 24 / F ADM Date: 06/12/25 Loc: US Attending Dr: Jessie Al D.O. Ordering Physician: Jessie Al D.O. Date of Service: 06/12/25 Procedure(s): US OB incomplete anatomy Accession Number(s): [id number] cc: Jessie Al D.O.; Physician,Non-Staff Barbara The [place] [id number] Patient Name: ALEJO OVERTON MRN: [id number] date: 2000 Sex: F Assigned Patient Location: US Current Patient Location: Accession/Order Number: [id number] Exam Date: 06/13/2025 09:05 Report Date: 06/13/2025 [...] Jr., D.O. 06/13/2025 9:20 AM Dictation Location: [place] [address] Electronically authenticated by: [id number] Y Date: 06/13/2025 09:20 Dictated By: Juan Francisco Abel M.D. Signed By: 06/13/2523 DD/ 9 TD/TT: Food Processing Chemist: Procedure Note Radiology, Radiologist, MD - 06/13/2025 The [place] [id number] Ultrasound Report Signed Patient: ALEJO OVERTON MMR#: [id number] : 2000Acct:[id number] Age/Sex: 24 / FADM Date: 06/12/25 Loc: US Attending Dr: Jessie Al D.O. Ordering Physician: Jessie Al D.O. Date of Service: 06/12/25 Procedure(s): US OB incomplete anatomy Accession Number(s): [id number] cc: Jessie Al D.O.; Physician,Non-Staff [place] [address] Patient Name: ALEJO OVERTON MRN: [facility]:[id number] date: 2000 Sex: F Assigned Patient Location: US Current Patient Location: Accession/Order Number: [id number] Exam Date: 06/13/2025 09:05 Report Date: 06/13/2025 [...] Jr., D.O. 06/13/2025 9:20 AM Dictation Location: [place] [address] Electronically authenticated by: [id number] Y Date: 509:20 Dictated By: Juan Francisco Abel M.D. Signed By:06/13/25922 DD/ 9 TD/TT: Food Processing Chemist: us Jessie Al DO CLINISYNC IMAGING Final Result * US OB CERVICAL LENGTH (06/04/2025 9:22 PM EDT) Anatomical Region Laterality Modality Other 06/04/2025 9:22 PM EDT Narrative 06/04/2025 9:25 [place] [address] Ultrasound Report Signed Patient: ALEJO OVERTON MR#: [id number] : 2000 Acct:[id number] Age/Sex: 24 / F ADM Date: 06/04/25 Loc: US Attending Dr: Jessie Al D.O. Ordering Physician: Jessie Al D.O. Date of Service: 06/04/25 Procedure(s): US OB cervical length Accession Number(s): [id number] cc: Jessie Al D.O.; [place] [address] [address] Patient Name: ALEJO OVERTON MRN: [id number] date: 2000 Sex: F Assigned Patient Location: US Current Patient Location: US Accession/Order Number: [id number] Exam Date: 06/04/2025 21:13 Report Date: 06/04/2025 [...] Jr., D.O. 06/04/2025 9:22 PM Dictation Location: [place] [address] Electronically authenticated by: [id number] Y Date: 06/04/2025 21:22 Dictated By: Juan Francisco Abel M.D. Signed By: 06/04/252124 DD/ 21 TD/TT: Food Processing Chemist: Procedure Note Radiology, Radiologist, - 06/04/2025 [place] [address] Ultrasound Report Signed Patient: ALEJO OVERTON MMR#: [id number] : 2000Acct:[id number] Age/Sex: 24 / FADM Date: 06/04/25 Loc: US Attending Dr: Jessie Al D.O. Ordering Physician: Jessie Al D.O. Date of Service: 06/04/25 Procedure(s): US OB cervical length Accession Number(s): [id number] cc: Jessie Al D.O.; [place] [address] Patient Name: ALEJO OVERTON MRN: [id number] date: 2000 Sex: F Assigned Patient Location: US Current Patient Location: US Accession/Order Number: [id number] Exam Date: 06/04/2025 21:13 Report Date: 06/04/2025 [...] Jr., D.O. 06/04/2025 9:22 PM Dictation Location: [place] [address] Electronically authenticated by: [id number] Y Date: 1:22 Dictated By: Juan Francisco Abel M.D. Signed By:06/04/252124 DD/ 21 TD/TT: Food Processing Chemist: us Jessie Al DO CLINISYNC IMAGING Final Result * US OB ANATOMY (06/04/2025 9:22 PM EDT) Anatomical Region Laterality Modality Other 06/04/2025 9:22 PM EDT Narrative 06/04/2025 9:25 [place] [address] Ultrasound Report Signed Patient: ALEJO OVERTON MR#: [id number] : 2000 Acct:[id number] Age/Sex: 24 / F ADM Date: 06/04/25 Loc: US Attending Dr: Jessie Al D.O. Ordering Physician: Jessie Al D.O. Date of Service: 06/04/25 Procedure(s): US OB anatomy Accession Number(s): [id number] cc: Jessie Al D.O.; [place] [address] [address] Patient Name: ALEJO OVERTON MRN: [id number] date: 2000 Sex: F Assigned Patient Location: US Current Patient Location: US Accession/Order Number: [id number] Exam Date: 06/04/2025 21:13 Report Date: 06/04/2025 [...] Jr., D.O. 06/04/2025 9:22 PM Dictation Location: [employer] Electronically authenticated by: [id number] Y Date: 06/04/2025 21:22 Dictated By: Juan Francisco Abel M.D. Signed By: 06/04/252124 DD/ 21 TD/TT: Food Processing Chemist: Procedure Note Radiology, Radiologist, MD - 06/04/2025 [place] [address] Ultrasound Report Signed Patient: ALEJO OVERTON MMR#: [id number] : 2000Acct:[id number] Age/Sex: Date: 06/04/25 Loc: US Attending Dr: Jessie Al D.O. Ordering Physician: Jessie Al D.O. Date of Service: 06/04/25 Procedure(s): US OB anatomy Accession Number(s): [id number] cc: Jessie Al D.O.; [place] R[place] The [address] [address] Patient Name: ALEJO OVERTON MRN: [id number] date: 2000 Sex: F Assigned Patient Location: US Current Patient Location: US Accession/Order Number: [id number] Exam Date: 06/04/2025 21:13 Report Date: 06/04/2025 [...] Jr., D.O. 06/04/2025 9:22 PM Dictation Location: [place] [address] Electronically authenticated by: [id number] Y Date: 1:22 Dictated By: Juan Francisco Abel M.D. Signed By:06/04/252124 DD/ 21 TD/TT: Food Processing Chemist: us Jessie Al DO CLINISYNC IMAGING Final Result * AFP, SERUM, OPEN SPINA BIFIDA (05/21/2025 8:39 AM EDT) RESULTS Report . [facility] TEST RESULTS: *Screen Negative* . [facility] GEST. AGE ON COLLECTION DATE 18.0 . weeks [facility] GESTAT. AGE BASED ON Ultrasound . TB Comment: 16.1 on 05/08/2025 Recalculations are not recommended when gestational dating by LMP and ultrasound are within 10 days. [age] [facility] RACE . [facility] WEIGHT 223 . lbs [facility] INSULIN DEP DIABETES No . [facility] MULTIPLE GESTATION No . TB AFP VALUE 24.9 . ng/mL [facility] AFP MOM 0.73 . [facility] [place] [address] . [facility] INTERPRETATION Comment . [facility] Comment: Interpretation: Screen Negative This result is [...] Customer Services to discuss available options. The [employer] recommends amniocentesis be offered to women age 35 and older. COMMENT: Comment . [facility] Comment: Blanca Martinez, Ph.D., [facility] Director References: Available Upon Request. Multiples Of Median Cutoffs For AFP Elevations Carty 2.5 Black 2.8 IDD 2.0 Twins 4.5 Abbreviation Definitions IDD - Insulin Dep Diabetes OSBR - Open Spina Bifida Risk For further inquiries contact [employer] [facility] at [phone]. This test was developed and its performance characteristics determined by [employer]. It has not been cleared or approved by the Food and Drug Administration. Performed at: [facility] [address] [id number] Wagon Driver: Renae Bautista [facility], Phone: [phone] 05/21/2025 8:39 AM EDT 05/21/2025 8:40 AM EDT Narrative CLINISYNC - 05/23/2025 2:10 AM EDT N N ULTRASOUND [id number] 1 16 N 1 Y 223 N N N N N White/ us Jessie Servando DO LAB BLOOD ORDERABLES Final Resul t [facility] from Last 3 Months Insurance BS Care Teams Manager Subway Relationship Specialty Start Date End Date Cleveland Ray MD [address] [place] [address] PCP - General Family Medicine 05/27/23
--- OUTSIDE RECORDS SUMMARY | 2025-08-14 19:08 | XMS_ITS | CCD ---
Author Organization [facility] Care Team Providers Care Senior Operations Analyst Name Role Phone Cleveland RAY Primary Care Physician Danika RUTLEDGE Unavailable Cleveland Ray MD Primary Care Provider [phone] Cleveland RAY Attending Unavailable Cleveland RAY Attending Unavailable Cleveland RAY Attending Unavailable Cleveland RAY Attending Unavailable Cleveland RAY Attending Unavailable JESSIE AL Attending Unavailable SERVANDO, JESSIE Attending Unavailable GABBY LINDER Attending Unavailable SERVANDO, JESSIE Attending Unavailable SERVANDO, JESSIE Attending Unavailable GABBY LINDER Attending Unavailable Allergies Allergy Classification Reported Allergen(s) Allergy Type Date of Onset Reaction(s) Facility (1 source) Amoxicillin; Translations: [amoxicillin] Drug Allergy [facility] Repository (1 source) Clindamycin; Translations: [clindamycin] Drug Allergy [facility] Repository (1 source) Penicillins; Translations: [penicillins] Propensity to adverse reactions (disorder) [facility] Repository (1 source) No Known Medication Allergies; Translations: [No Known Medication Allergies] Propensity to adverse reactions (disorder) [facility] Repository Medications Current Medications Medication Drug Class(es) [...] Daily, # 30 tab(s), Refills(s) 0, [facility]acy: [id number], 173, cm, 03/30/24 8:25:00 EDT, Height/Length Dosing, 91.2, kg, 03/30/24 8:25:00 EDT, Weight Dosing Start Date: 03/30/24 Status: Ordered Start: 03-06-2024 take 1 tablet by gregor th once daily Adipex-P 37.5 mg Tab 37.5 mg = 1 tab(s), Oral, Daily, # 30 tab(s), Refills(s) 0, Pharmacy: [facility] #[id number], 173, cm, 03/06/24 8:02:00 EDT, Height/Length Dosing, 91.7, kg, 03/06/24 8:02:00 EDT, Weight Dosing Start Date: 03/06/24 Status: Ordered Start: 02-03-2024 take 1 tablet by gregor th once daily Adipex-P 37.5 mg Tab 37.5 mg = 1 tab(s), Oral, Daily, # 30 tab(s), Refills(s) 0, [facility]acy: [facility] #[id number], 173, cm, 02/03/24 8:01:00 EDT, Height/Length Dosing, 93, kg, 02/03/24 8:01:00 EDT, Weight Dosing Start Date: 02/03/24 Status: Ordered Start: 01-22-2023 End: 03-09-2025 take 1 tablet by mouth once daily Adipex-P 37.5 mg Tab 37.5 mg = 1 tab(s), Oral, Daily, # 30 tab(s), Refills(s) 0, [facility]: [id number], 173, cm, 01/06/24 8:32:00 EST, Height/Length Dosing, [...] (6 sources) 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 Other complications of (2 sources) size does not accord with dates; Translations: [Uterine size-date discrepancy, unspecified trimester] 08-01-2025 Episodic Other congenital anomalies (6 sources) Non-neoplastic [...] 03-06-2024 Episodic Other and delivery including normal (12 sources) ; Translations: [Encounter for supervision of [...] [24 weeks gestation of ] 07-04-2025 Episodic Residual codes; unclassified (2 sources) Gestation period, 28 weeks; Translations: [28 weeks gestation of ] 08-01-2025 Episodic Past or Other Problems Problem Classification Problem Date Documented Da te Episodic/Chronic Unclassified (12 sources) Patient encounter status 01-14-2023 Results Test Name Value Interpretation Reference Range Facility Urinalysis macro (dipstick) panel (U)on 08-01-2025 Bilirubin, UA Negative Negative - 4(70) +++ mg/dL [facility] Blood, UA Negative Negative - 50 Ming/mcL [facility] Clarity, UA Clear [facility] Color, UA Yellow [facility] Glucose, UA Negative Negative - 2000(110) ++++ mg/dL [facility] Interpretation and review of laboratory results Normal [facility] Ketones, UA Negative Negative - 160(16) ++++ mg/dL [facility] Leukocytes, UA Negative Negative - 500+++ Manpreet/mcL [facility] Nitrite, UA Negative Negative - Positive [facility] pH, UA 6 5 - 9 [facility] Protein, UA Negative Negative - 1999(20) ++++ mg/dL [facility] Spec Grav, UA 1.015 1 - 1.03 [facility] Urobilinogen, UA 0.2 0.2 - 12 mg/dL [facility] GLUCOSE 1 HOURon 07-18-2025 Glucose [Mass/Vol] 122 mg/dL NINF - 13 0 mg/dL [facility] IGP,APTIMA HPV,AGE GDLNon AGE GDLN ACOG TESTING Note . [facility] Comment on above: TESTS RESULT FLAG UN ITS REF RANGE LAB Clinician Provided Cytology Information Source.............Vagina Other.............. No. of containers..01 ThinPrep Vial Age Algo ACOG Sherice... - 01 FLAG LEGEND: L-Low Normal,H-High Normal,LL-Alert Low,HH-Alert High <-Panic Low,>-Panic High,A-Abnormal,AA-Critical Abnormal Performed at: 01 =G Alida Evans [address] [place] [phone] Gabi Graves MD, IGP, RFX APTIMA HPV ASCU Note . [facility] Comment on above: TESTS RESULT FLAG UN ITS REF RANGE LAB DIAGNOSIS: 02 NEGATIVE FOR INTRAEPITHELIAL LESION OR MALIGNANCY. Specimen adequacy: 02 Satisfactory for evaluation. No endocervical component is identified. An endocervical component is not commonly seen in the patient. Performed by: 02 Josefina Piper Cyber Security Administrator ([facility]) . 02 Note: Note 02 [...] <-Panic Low,>-Panic High,A-Abnormal,AA-Critical Abnormal Performed at: [address] [place] [address] Gabi Graves MD, Performed at: = - [facility] [address], [place] [id number] Photographic Process Attendant: Gabi Graves MD, Phone: [phone] Performed at: [facility] [id number] Photographic Process Attendant: Gabi Graves MD, Phone: [phone] SPATULA-ALONE VAGINA [facility] RECURRENT VAGINITIS (HTRX)on 07-06-2025 ATOPOBIUM VAGINAE 19.164 Abnormal [facility] ATOPOBIUM VAGINAE Detected Abnormal [facility] BVAB 2,3 (BACTERIAL VAGINOSIS ASSOCIATED BACTERIA 2, 3); MOBILUNCUS SPP 0 [facility] BVAB 2,3 (BACTERIAL VAGINOSIS ASSOCIATED BACTERIA 2, 3); MOBILUNCUS SPP Not detected [facility] IGOR ALBICANS, PARAPSILOSIS, TROPICALIS 0 [facility] IGOR ALBICANS, PARAPSILOSIS, TROPICALIS Not detected [facility] IGOR GLABRATA 0 [facility] IGOR GLABRATA Not detected [facility] IGOR KRUSEI 0 [facility] IGOR KRUSEI Not detected [facility] CHLAMYDIA TRACHOMATIS 0 [facility] CHLAMYDIA TRACHOMATIS Not detected [facility] ERMB, C; MEFA 23.066 Abnormal [facility] ERMB, C; MEFA Detected Abnormal [facility] GARDNERELLA VAGINALIS 15.73 Abnormal [facility] GARDNERELLA VAGINALIS Detected Abnormal [facility] Interpretation and review of laboratory results Abnormal [facility] MEGASPHAERA (TYPES 1, 2) 14.97 Abnormal [facility] MEGASPHAERA (TYPES 1, 2) Detected Abnormal [facility] MYCOPLASMA GENITALIUM 0 [facility] MYCOPLASMA GENITALIUM Not detected [facility] NEISSERIA GONORRHOEAE 0 [facility] NEISSERIA GONORRHOEAE Not detected [facility] TET B, TET M 24.724 Abnormal [facility] TET B, TET M Detected Abnormal [facility] TRICHOMONAS VAGINALIS 0 [facility] TRICHOMONAS VAGINALIS Not detected [facility] Urinalysis macro (dipstick) panel (U)on 07-04-2025 Bilirubin, UA Negative Negative - 4(70) +++ mg/dL [facility] Blood, UA Negative Negative - 50 Ming/mcL [facility] Clarity, UA Clear [facility] Color, UA Yellow [facility] Glucose, UA Negative Negative - 1999(110) ++++ mg/dL [facility] Interpretation and review of laboratory results Abnormal [facility] Ketones, UA Negative Negative - 160(16) ++++ mg/dL [facility] Leukocytes, UA Positive Negative - 500+++ Manpreet/mcL [facility] Nitrite, UA Negative Negative - Positive [facility] pH, UA 6 5 - 9 [facility] Protein, UA Negative Negative - 1999(20) ++++ mg/dL [facility] Spec Grav, UA 1.015 1 - 1.03 [facility] Urobilinogen, UA 1.0 0.2 - 12 mg/dL [facility] US OB INCOMPLETE ANATOMYon 0 06-13-[address] [address] Ultrasound Report Signed Patient: ALEJO OVERTON MR#: [id number] : 2000 Acct:[id number] Age/Sex: 24 / F ADM Date: 06/12/25 Loc: US Attending Dr: Jessie Al D.O. Ordering Physician: Jessie Al D.O. Date of Service: 06/12/25 Procedure(s): US OB incomplete anatomy Accession Number(s): [id number] cc: Jessie Al D.O.; Physician,Non-Staff Barbara [address] [id number] Patient Name: ALEJO OVERTON MRN: [facility]:[id number] date: 2000 Sex: F Assigned Patient Location: US Current Patient Location: Accession/Order Number: [id number] Exam Date: 06/13/2025 09:05 Report Date: 06/13/2025 [...] Jr., D.O. 06/13/2025 9:20 AM Dictation [facility] Electron[facility] authenticated by: [id number] Y Date: 06/13/2025 09:20 Dictated By: Juan Francisco Abel M.D. Signed By: 06/13/25922 DD/ 9 TD/TT: Furniture Assembly Supervisor: [facility] Luz Patricio MD - 06/13/2025 [place] [address] Ultrasound Report Signed Patient: ALEJO OVERTON MR#: [id number] : 2000 Acct:[id number] Age/Sex: 24 / F ADM Date: 06/12/25 Loc: US Attending Dr: Jessie Al D.O. Ordering Physician: Jessie Al D.O. Date of Service: 06/12/25 Procedure(s): US OB incomplete anatomy Accession Number(s): [id number] cc: Jessie Al D.O.; Physician,Non-Staff Barbara [place] [address] Patient Name: ALEJO OVERTON MRN: [facility]:[id number] date: 2000 Sex: F Assigned Patient Location: US Current Patient Location: Accession/Order Number: [id number] Exam Date: 06/13/2025 09:05 Report Date: 06/13/2025 [...] Jr., D.O. 06/13/2025 9:20 AM Dictation Location: [place] [address] Electronically authenticated by: [id number] Y Date: 06/13/2025 09:20 Dictated By: Juan Francisco Abel M.D. Signed By: 06/13/25922 DD/ 9 TD/TT: Furniture Assembly Supervisor: [facility] Radiology Study observation (narrative) [facility] US OB INCOMPLETE ANATOMYOrde red By: Radiologist Radiology on 06-13-2025 [facility] Work Phone: No Panel InformationOrdered By: Radiologist Radiology on 06-04-2025 [facility] Work Phone: No Panel Informationon 06-04 Radiology Study observation (narrative) [facility] US OB ANATOMYon 06-04-2025 [place] [address] Ultrasound Report Signed Patient: ALEJO OVERTON MR#: [id number] : 2000 Acct:[id number] Age/Sex: 24 / F ADM Date: 06/04/25 Loc: US Attending Dr: Jessie Al D.O. Ordering Physician: Jessie Al D.O. Date of Service: 06/04/25 Procedure(s): US OB anatomy Accession Number(s): [id number] cc: Jessie Al D.O.; [place] R[place] [id number] Patient Name: ALEJO OVERTON MRN: [facility]:[id number] date: 2000 Sex: F Assigned Patient Location: US Current Patient Location: US Accession/Order Number: [id number] Exam Date: 06/04/2025 21:13 Report Date: 06/04/2025 [...] Jr., D.O. 06/04/2025 9:22 PM Dictation Location: [place] [address] Electronically authenticated by: [id number] Y Date: 06/04/2025 21:22 Dictated By: Juan Francisco Abel M.D. Signed By: 06/04/252124 DD/ 21 TD/TT: Furniture Assembly Supervisor: [facility] Radiology, Radiologi MD gabriella - 06/04/2025 [place] [address] Ultrasound Report Signed Patient: ALEJO OVERTON MR#: [id number] : 2000 Acct:[id number] Age/Sex: 24 / F ADM Date: 06/04/25 Loc: US Attending Dr: Jessie Al D.O. Ordering Physician: Jessie Al D.O. Date of Service: 06/04/25 Procedure(s): US OB anatomy Accession Number(s): [id number] cc: Jessie Al D.O.; [place] RAY [address] [address] Patient Name: ALEJO OVERTON MRN: [facility]:[id number] date: 2000 Sex: F Assigned Patient Location: US Current Patient Location: US Accession/Order Number: [id number] Exam Date: 06/04/2025 21:13 Report Date: 06/04/2025 [...] Jr., D.O. 06/04/2025 9:22 PM Dictation Location: [place] [address] Electronically authenticated by: [id number] Y Date: 06/04/2025 21:22 Dictated By: Juan Francisco Abel M.D. Signed By: 06/04/252124 DD/ 21 TD/TT: Furniture Assembly Supervisor: [facility] US OB CERVICAL LENGTHon 05-09 [place] [address] Ultrasound Report Signed Patient: ALEJO OVERTON MR#: [id number] : 2000 Acct:[id number] Age/Sex: 24 / F ADM Date: 06/04/25 Loc: US Attending Dr: Jessie Al D.O. Ordering Physician: Jessie Al D.O. Date of Service: 06/04/25 Procedure(s): US OB cervical length Accession Number(s): [id number] cc: Jessie Al D.O.; [place] R[place] [id number] Patient Name: ALEJO OVERTON MRN: [facility]:[id number] date: 2000 Sex: F Assigned Patient Location: US Current Patient Location: US Accession/Order Number: [id number] Exam Date: 06/04/2025 21:13 Report Date: 06/04/2025 [...] Jr., D.O. 06/04/2025 9:22 PM Dictation Location: [place] [address] Electronically authenticated by: [id number] Y Date: 06/04/2025 21:22 Dictated By: Juan Francisco Abel M.D. Signed By: 06/04/252124 DD/ 21 TD/TT: Furniture Assembly Supervisor: [facility] RadiologyGualbertoogkarsten quiroz MD - 06/04/2025 [place] [address] Ultrasound Report Signed Patient: ALEJO OVERTON MR#: [id number] : 2000 Acct:[id number] Age/Sex: 24 / F ADM Date: 06/04/25 Loc: US Attending Dr: Jessie Al D.O. Ordering Physician: Jessie Al D.O. Date of Service: 06/04/25 Procedure(s): US OB cervical length Accession Number(s): [id number] cc: Jessie Al D.O.; [place] RAY [place] [id number] Patient Name: ALEJO OVERTON MRN: [facility]:[id number] date: 2000 Sex: F Assigned Patient Location: US Current Patient Location: US Accession/Order Number: [id number] Exam Date: 06/04/2025 21:13 Report Date: 06/04/2025 [...] Jr., D.O. 06/04/2025 9:22 PM Dictation Location: [place] [address] Electronically authenticated by: [id number] Y Date: 06/04/2025 21:22 Dictated By: Juan Francisco Abel M.D. Signed By: 06/04/252124 DD/ 21 TD/TT: Furniture Assembly Supervisor: [facility] AFP, SERUM, OPEN SPINA BIFID Aon 05-23-2025 AFP MOM 0.73 . [facility] AFP VALUE 24.9 ng/mL . [facility] COMMENT: Comment . [facility] Comment on above: Blanca Martinez , Ph.D., [facility] Director References: Available Upon Request. Multiples Of Median Cutoffs For AFP Elevations Carty 2.5 Black 2.8 IDD 2.0 Twins 4.5 Abbreviation Definitions IDD - Insulin Dep Diabetes OSBR - Open Spina Bifida Risk For further inquiries contact [employer] at [phone]. This test was developed and its performance characteristics determined by [employer]. It has not been cleared or approved by the Food and Drug Administration. Performed at: [facility] [address] [id number] Photographic Process Attendant: Renae Bautista [facility], Phone: [phone] GEST. AGE ON COLLECTION DATE 18.0 . weeks [facility] GESTAT. AGE BASED ON Ultrasound . [facility] Comment on above: 16.1 on 05/08/2025 Recalculations are not recommended when gestational dating by LMP and ultrasound are within 10 days. INSULIN DEP DIABETES No . [facility] INTERPRETATION Comment . [facility] Comment on above: Interpretation: Scre en Negative [...] Customer Services to discuss available options. The [place] [employer] recommends amniocentesis be offered to women age 35 and older. [age] . [age] [facility] MULTIPLE GESTATION No . [facility] OSBR [place]ISK [place] [address] . [facility] RACE . [facility] RESULTS Report . [facility] TEST RESULTS: Negative . [facility] WEIGHT 223 . lbs [facility] N N ULTRASOUND [id number] 1 16 N 1 Y 223 N N N N N White/ [facility] Urinalysis macro (dipstick) panel (U)on 05-08-2025 Bilirubin, UA Negative Negative - 4(70) +++ mg/dL [facility] Blood, UA Negative Negative - 50 Ming/mcL [facility] Clarity, UA Clear [facility] Color, UA Yellow [facility] Glucose, UA Negative Negative - 1999(110) ++++ mg/dL [facility] Interpretation and review of laboratory results Abnormal [facility] Ketones, UA Positive Negative - 160(16) ++++ mg/dL [facility] Leukocytes, UA Trace Negative - 500+++ Manpreet/mcL [facility] Nitrite, UA Negative Negative - Positive [facility] pH, UA 6.5 5 - 9 [facility] Protein, UA Negative Negative - 1999(20) ++++ mg/dL [facility] Spec Grav, UA 1.025 1 - 1.03 [facility] Urobilinogen, UA 1.0 0.2 - 12 mg/dL [facility] Urinalysis macro (dipstick) panel (U)on 04-09-2025 Bilirubin, UA Negative Negative - 4(70) +++ mg/dL [facility] Blood, UA Negative Negative - 50 Ming/mcL [facility] Clarity, UA Clear [facility] Color, UA Yellow [facility] Glucose, UA Negative Negative - 1999(110) ++++ mg/dL [facility] Interpretation and review of laboratory results Normal [facility] Ketones, UA Negative Negative - 160(16) ++++ mg/dL [facility] Leukocytes, UA Negative Negative - 500+++ Manpreet/mcL [facility] Nitrite, UA Negative Negative - Positive [facility] pH, UA 6 5 - 9 [facility] Protein, UA Negative Negative - 1999(20) ++++ mg/dL [facility] Spec Grav, UA 1.01 1 - 1.03 [facility] Urobilinogen, UA 0.2 0.2 - 12 mg/dL [facility] BOX TESTon 03-19-2025 BOX TEST SENT OUT [employer] [facility] BOX1 [employer] [facility] BOX2 03/19/25 [facility] US OB TRANSVAGINALon 025 US OB TRANSVAGINAL [...] II, MD, PHD at 11-Mar-2025 08:55:38 PM [facility] Normal Not Available Comment on above: [...] with steri-strips and pressure bandage applied: yes [facility] PAP IMAGE GUIDEDon 06-10 PAP IG (IMAGE GUIDED) Note . [facility] Comment on above: TESTS RESULT FLAG UN ITS REF RANGE LAB Clinician Provided Cytology Information Source.............Cervix;Endocervix No. of containers..01 ThinPrep Vial DIAGNOSIS: 01 NEGATIVE FOR INTRAEPITHELIAL LESION OR MALIGNANCY. Specimen adequacy: 01 Satisfactory for evaluation. Endocervical and/or squamous metaplastic cells (endocervical component) are present. Performed by: Trinity Schmidt, Stereotype Finisher ([facility]) . 01 Note: Note 01 [...] High <-Panic Low,>-Panic High,A-Abnormal,AA-Critical Abnormal Performed at: [facility] [address] Gabi Graves MD, Performed at: [facility] [address] [id number] Photographic Process Attendant: Gabi Graves MD, Phone: [phone] BRUSH-SPATULA CERVIX ENDOCERVIX [facility] Ambulatory Visit Summaryon 0 05-04-2024 Ambulatory Visit [...] Follow Up with Cleveland RAY DO, FAAFP, FAM PED When: In 6 months Where: [address] [facility] [facility] [address] [facility] [place] [address]- Medications What How Much When Why Instructions [...] health care provider or diet and nutrition assistant (dietitian). This may include: ? Eating fewer [...] exercise may (more content not included)... Normal [facility] Family Medicine Office/Clini c Noteon [...] BAJWA FAAFP, Cleveland Santo, DAE, PED In 6 months [address] [facility] [address] [facility] [address] [facility], [place] [address]- Additional Instructions: Patient Education Exercising [...] ped 0 (more content not included)... Normal [facility] Comment on above: Result Comment: Elec tronically [...] EDT With: Cleveland RAY DO, FAAFP Where: [facility] Normal [facility] Family Medicine Office/Clini c Noteon 03-30-2024 Family [...] Daily, # 30 tab(s), Refills(s) 0, Pharmacy: [facility] #[id number], 173, cm, 03/30/24 8:25:00 EDT, Height/Length Dosing, [...] FAAFP, DAE, PED In 1 month [address] [facility] [address] [facility] [address] [facility], [place] [address]- Additional Instructions: Patient Education BMI for Adults Problem List/Past Medical History Ongoing Compound nevus of face Historical Other obesity School physical exam Procedure/Surgical History None. Medications Adipex-P 37.5 mg Tab, 37.5 mg= 1 tab(s), Oral, Daily Nexplanon 68 mg subcutaneous implant, SubCutaneou (more content not included)... Normal [facility] Comment on above: Result Comment: Elec tronically [...] numbers. This can be done either in [place] ([place] or metric measurements. Note that charts and online BMI calculators are available to help you find your BMI quickly and easily without having to do these calculations yourself. To calculate your BMI in [place]aur[place] ([place] measurements: 1. Measure your weight in [...] for Disease Control and Prevention: www.cdc.gov ? [place] [employer]: www.heart.org ? National Heart, Lung, and Blood Thayer: www.nhlbi.nih.gov Summary ? Body mass index (BMI) is a number that is calculated from a person's weight and height. ? BMI may help estimate how much of a person's weight is composed of fat. BMI can help identify those who may be at higher risk for certain medical problems. ? BMI can be measured using Nauruan measurements or metric measurements. ? BMI charts are used to identify whether you are underweight, normal weight, overweight, or obese. This information is not intended to replace advice given to you by your health care provider. Make sure you discuss any questions you have with your health care provider. Document Revised: 07/17/2020 Document Reviewed: 05/24/2020 [employer] Patient Education ? 2022 [employer]. [facility] Ambulatory Visit Summaryon 0 03-06-2024 Ambulatory Visit [...] EDT With: Cleveland RAY DO, FAAFP Where: [facility] Normal [address], [place] [address]- \.br\ You Need to Schedule the Following Appointments\ .br\ Follow Up with Cleveland RAY DO, FAAFP, DAE, PED When: In 1 month\.br\ Where:\.br\ [address], [address]\ [place] [address].br\ \.br\ Medications\. br\ What How Much When Why Instructions\ .br\ Unchanged etonogestrel (Nexplanon 68 mg subcutaneous implant) Subcutaneous Once\.br\ Unchanged phentermine (Adipex-P 37.5 mg Tab) 1 Tablets By Mouth Every day Other obesity Pickup at [facility] #[id number]\.br\ Pharmacy Information\. br\ [facility][id number]: [address] [place], [place] [phone]\.br\ Allergies\.br \ No Known Medication Allergies\.br \ [...] health care provider or diet and nutrition assistant (dietitian). This may include:\.br\ ? \.br\ Eating [...] U.S. Department of Health and Human Services: www.[facility].gov\. br\ ? \.br\ Centers for Disease Control [...] to you by your health care provider. 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 Medications Adipex-P 37.5 mg Tab, 37.5 mg= 1 tab(s), Oral, Daily Nexplanon 68 mg subcutaneous implant, SubCutaneous, Once Allergies No Known Medication Allergies Social History Alcohol - Denies (more content not included)... Normal [facility] Comment on above: Result Comment: Elec tronically [...] health care provider or diet and nutrition assistant (dietitian). This may include: ? Eating fewer [...] is e (more content not included)... Normal [facility] Ambulatory Visit Summaryon 0 02-03-2024 Ambulatory Visit [...] Mouth Every day Other obesity Pickup at [id number] Pharmacy Information [facility] #[id number]: [address], [place] [phone] Allergies No Known Medication Allergies Problems Ongoing [...] you for choosing us for your care. Jessie [facility] Family Medicine Office/Clini c Noteon 02-03-2024 Family [...] # 30 tab(s), Refills(s) 0, [facility]acy: [facility] #[id number], 173, cm, 02/03/24 8:01:00 EDT, Height/Length Dosing, 93, kg, 02/03/24 8:01:00 EDT, Weight Dosing Follow-up With When Contact Information Cleveland RAY DO, FAAFP, FAM, PED In [address] [place] [id number]- Additional Instructions: Patient Education Exercising to Lose [...] poliovirus vaccine, inactivated (more content not included)... Normal [facility] Comment on above: Result Comment: Elec tronically Signed By: [place] RAY DO, FAAFP\.br\Date and Time Signed: 02/03/24 [...] health care provider or diet and nutrition assistant (dietitian). This may include: ? Eating fewer [...] is e (more content not included)... Normal [facility] CHEMISTRYOrdered By: SYSTEM SYSTEM on 01-16-2023 Cholesterol [Mass/Vol] 140 mg/dL Normal 120 - 200 mg/dL [facility] Remisol Cholesterol in HDL [Mass/Vol] 51 mg/dL [...] Time Vital Sign Value Performing Clinician Facility 08-01-2025 15:04-0400 Body mass index (BMI) [Ratio] 34.58 kg/m2 Gabby CHANEL Work Phone: [facility] 08-01-2025 15:04-0400 Body weight 109.32 kg Gabby CHANEL Work Phone: [facility] 08-01-2025 15:04-0400 Diastolic blood pressure 70 mm[Hg] Gabby CHANEL Work Phone: [facility] 08-01-2025 15:04-0400 Systolic blood pressure 112 mm[Hg] Gabby CHANEL Work Phone: [facility] 07-04-2025 15:04-0400 Body mass index (BMI) [Ratio] 33.83 kg/m2 Jessie Servando DO Work Phone: [facility] 07-04-2025 15:04-0400 Body weight 106.96 kg Jessie Servando DO Work Phone: [facility] 07-04-2025 15:04-0400 Diastolic blood pressure 70 mm[Hg] Jessie Servando DO Work Phone: [facility] 07-04-2025 15:04-0400 Systolic blood pressure 114 mm[Hg] Jessie Servando DO Work Phone: [facility] 06-05-2025 14:37-0400 Body mass index (BMI) [Ratio] 32.79 kg/m2 Gabby CHANEL Work Phone: [facility] 06-05-2025 14:37-0400 Body weight 103.65 kg Gabby Shuklaester CHANEL Work Phone: [facility] 06-05-2025 14:37-0400 Diastolic blood pressure 76 mm[Hg] Gabby Shuklaester CHANEL Work Phone: [facility] 06-05-2025 14:37-0400 Systolic blood pressure 120 mm[Hg] Gabby Linder DARÍO Work Phone: [facility] 05-08-2025 09:35-0400 Body mass index (BMI) [Ratio] 32.11 kg/m2 Jessie Servando DO Work Phone: [facility] 05-08-2025 09:35-0400 Body weight 101.52 kg Jessie Servando DO Work Phone: [facility] 05-08-2025 09:35-0400 Diastolic blood pressure 72 mm[Hg] Jessie Servando DO Work Phone: [facility] 05-08-2025 09:35-0400 Systolic blood pressure 118 mm[Hg] Jessie Servando DO Work Phone: [facility] 04-09-2025 15:37-0400 Body mass index (BMI) [Ratio] 31.67 kg/m2 Jessie Servando DO Work Phone: [facility] 04-09-2025 15:37-0400 Body weight 100.13 kg Jessie Servando DO Work Phone: [facility] 04-09-2025 15:37-0400 Diastolic blood pressure 78 mm[Hg] Jessie Servando DO Work Phone: [facility] 04-09-2025 15:37-0400 Systolic blood pressure 122 mm[Hg] Jessie Servando DO Work Phone: [facility] 03-09-2025 09:18-0400 Body mass index (BMI) [Ratio] 31.15 kg/m2 [facility] 03-09-2025 09:18-0400 Body weight 98.48 kg [facility] Nurse [facility] 11-20-2024 13:47-0500 Body mass index (BMI) [Ratio] 29.99 kg/m2 Jessie Servando DO Work Phone: [facility] 11-20-2024 13:47-0500 Body weight 94.8 kg Jessie Servando DO Work Phone: [facility] 11-20-2024 13:47-0500 Diastolic blood pressure 76 mm[Hg] Jessie Srevando DO Work Phone: [facility] 11-20-2024 13:47-0500 Systolic blood pressure 112 mm[Hg] Jessie Servando DO Work Phone: [facility] 07-03-2024 14:50-0400 Body mass index (BMI) [Ratio] 29.1 kg/m2 Jessie Servando DO Work Phone: [facility] 07-03-2024 14:50-0400 Body weight 91.99 kg Jessie Servando DO Work Phone: [facility] 07-03-2024 14:50-0400 Diastolic blood pressure 70 mm[Hg] Jessie Servando DO Work Phone: [facility] 07-03-2024 14:50-0400 Systolic blood pressure 112 mm[Hg] Jessie Servando DO Work Phone: [facility] 05-04-2024 08:28-0400 Blood Pressure Location [place] LOPEZLE [facility] 05-04-2024 08:28-0400 Body temperature 97.88 [degF] [place] KAPLE [facility] 05-04-2024 08:28-0400 Diastolic blood pressure 70 mm[Hg] [place] KAPLE [facility] 05-04-2024 08:28-0400 Heart rate 78 /min [place] JOHNLE [facility] 05-04-2024 08:28-0400 Respiratory rate 16 /min [place] KAPLE [facility] 05-04-2024 08:28-0400 SaO2% (BldA) [Mass fraction] 99 % [place] KAPLE [facility] 05-04-2024 08:28-0400 Systolic blood pressure 120 mm[Hg] [place] KAPLE [facility] 03-30-2024 08:18-0400 Blood Pressure Location [place] KAPLE [facility] 03-30-2024 08:18-0400 Body temperature 97.88 [degF] [place] KAPLE [facility] 03-30-2024 08:18-0400 Diastolic blood pressure 72 mm[Hg] [place] KAPLE [facility] 03-30-2024 08:18-0400 Heart rate 80 /min [place] KAPLE [facility] 03-30-2024 08:18-0400 Respiratory rate 16 /min [place] KAPLE [facility] 03-30-2024 08:18-0400 SaO2% (BldA) [Mass fraction] 99 % [place] KAPLE [facility] 03-30-2024 08:18-0400 Systolic blood pressure 118 mm[Hg] [place] KAPLE [facility] 03-06-2024 07:56-0400 Blood Pressure Location [place] KAPLE [facility] 03-06-2024 07:56-0400 Body temperature 97.7 [degF] [place] KAPLE [facility] 03-06-2024 07:56-0400 Diastolic blood pressure 70 mm[Hg] [place] KAPLE [facility] 03-06-2024 07:56-0400 Heart rate 76 /min [place] KAPLE [facility] 03-06-2024 07:56-0400 Respiratory rate 16 /min [place] KAPLE [facility] 03-06-2024 07:56-0400 SaO2% (BldA) [Mass fraction] 99 % [place] KAPLE [facility] 03-06-2024 07:56-0400 Systolic blood pressure 116 mm[Hg] [place] KAPLE [facility] 02-03-2024 07:54-0400 Blood Pressure Location [place] KAPLE [facility] 02-03-2024 07:54-0400 Body temperature 97.88 [degF] [place] KAPLE [facility] 02-03-2024 07:54-0400 Diastolic blood pressure 72 mm[Hg] [place] KAPLE [facility] 02-03-2024 07:54-0400 Heart rate 80 /min [place] KAPLE [facility] 02-03-2024 07:54-0400 Respiratory rate 16 /min [place] KAPLE [facility] 02-03-2024 07:54-0400 SaO2% (BldA) [Mass fraction] 97 % [place] KAPLE [facility] 02-03-2024 07:54-0400 Systolic blood pressure 112 mm[Hg] [place] KAPLE [facility] 01-06-2024 08:26-0500 Blood Pressure Location [place] KAPLE [facility] 01-06-2024 08:26-0500 Body temperature 97.88 [degF] [place] KAPLE [facility] 01-06-2024 08:26-0500 Diastolic blood pressure 72 mm[Hg] [place] KAPLE [facility] 01-06-2024 08:26-0500 Heart rate 84 /min [place] KAPLE [facility] 01-06-2024 08:26-0500 Respiratory rate 16 /min [place] KAPLE [facility] 01-06-2024 08:26-0500 SaO2% (BldA) [Mass fraction] 99 % [place] KAPLE [facility] 01-06-2024 08:26-0500 Systolic blood pressure 112 mm[Hg] [place] KAPLE [facility] 12-06-2023 08:24-0500 Blood Pressure Location [place] KAPLE [facility] 12-06-2023 08:24-0500 Body temperature 97.88 [degF] [place] KAPLE [facility] 12-06-2023 08:24-0500 Diastolic blood pressure 70 mm[Hg] [place] KAPLE [facility] 12-06-2023 08:24-0500 Heart rate 86 /min [place] KAPLE [facility] 12-06-2023 08:24-0500 Respiratory rate 16 /min [place] KAPLE [facility] 12-06-2023 08:24-0500 SaO2% (BldA) [Mass fraction] 98 % [place] KAPLE [facility] 12-06-2023 08:24-0500 Systolic blood pressure 112 mm[Hg] [place] KAPLE [facility] 11-04-2023 07:49-0500 Blood Pressure Location [place] KAPLE [facility] 11-04-2023 07:49-0500 Body temperature 97.88 [degF] [place] KAPLE [facility] 11-04-2023 07:49-0500 Diastolic blood pressure 72 mm[Hg] [place] KAPLE [facility] 11-04-2023 07:49-0500 Heart rate 86 /min [place] KAPLE [facility] 11-04-2023 07:49-0500 Respiratory rate 16 /min [place] KAPLE [facility] 11-04-2023 07:49-0500 SaO2% (BldA) [Mass fraction] 97 % [place] KAPLE [facility] 11-04-2023 07:49-0500 Systolic blood pressure 114 mm[Hg] [place] KAPLE [facility] 05-03-2023 07:40-0400 Blood Pressure Location [place] KAPLE [facility] 05-03-2023 07:40-0400 Body temperature 97.88 [degF] [place] KAPLE [facility] 05-03-2023 07:40-0400 Diastolic blood pressure 74 mm[Hg] [place] KAPLE [facility] 05-03-2023 07:40-0400 Heart rate 85 /min [place] KAPLE [facility] 05-03-2023 07:40-0400 Respiratory rate 16 /min [place] KAPLE [facility] 05-03-2023 07:40-0400 SaO2% (BldA) [Mass fraction] 100 % [place] KAPLE [facility] 05-03-2023 07:40-0400 Systolic blood pressure 116 mm[Hg] [place] KAPLE [facility] 02-22-2023 14:47-0400 Blood Pressure Location [place] KAPLE [facility] 02-22-2023 14:47-0400 Body temperature 97.88 [degF] [place] KAPLE [facility] 02-22-2023 14:47-0400 Diastolic blood pressure 78 mm[Hg] [place] KAPLE [facility] 02-22-2023 14:47-0400 Heart rate 78 /min [place] KAPLE [facility] 02-22-2023 14:47-0400 Respiratory rate 16 /min [place] KAPLE [facility] 02-22-2023 14:47-0400 SaO2% (BldA) [Mass fraction] 99 % [place] KAPLE [facility] 02-22-2023 14:47-0400 Systolic blood pressure 120 mm[Hg] [place] KAPLE [facility] 01-22-2023 13:14-0400 Blood Pressure Location [place] KAPLE [facility] 01-22-2023 13:14-0400 Body temperature 98.24 [degF] [place] KAPLE [facility] 01-22-2023 13:14-0400 Diastolic blood pressure 78 mm[Hg] [place] KAPLE [facility] 01-22-2023 13:14-0400 Heart rate 76 /min [place] KAPLE [facility] 01-22-2023 13:14-0400 Systolic blood pressure 124 mm[Hg] [place] KAPLE [facility] 01-14-2023 07:53-0500 Blood Pressure Location [place] KAPLE [facility] 01-14-2023 07:53-0500 Body temperature 97.88 [degF] [place] KAPLE [facility] 01-14-2023 07:53-0500 Diastolic blood pressure 70 mm[Hg] [place] KAPLE [facility] 01-14-2023 07:53-0500 Heart rate 69 /min [place] KAPLE [facility] 01-14-2023 07:53-0500 Respiratory rate 16 /min [place] K[place]LE [facility] 01-14-2023 07:53-0500 SaO2% (BldA) [Mass fraction] 98 % [place] KAPLE [facility] 01-14-2023 07:53-0500 Systolic blood pressure 114 mm[Hg] [place] KAPLE [facility] Encounters Encounter Date Encounter Type Care Provider Facility Start: 08-01-2025 End: 08-01-2025 flow sheet Gabby CHANEL Work Phone: [facility] Comment on above: size inconsist ent with dates ([facility]) (Primary Dx); Third trimester ([facility]); 28 weeks gestation of ([facility]) Start: 08-01-2025 End: 08-01-2025 ambulatory GABBY LINDER Not Available Start: 08-01-2025 End: 08-01-2025 Bamboo flowsheet Gabby Linder PA Work Phone: [facility] Start: 08-01-2025 End: 08-01-2025 Bamboo flowsheet Gabby CHANEL Work Phone: [facility] Start: 07-18-2025 End: 07-18-2025 Clinisync Result Encounter Jessie Servando DO Work Phone: [facility] Unsolicited Start: 07-18-2025 End: 07-18-2025 Clinisync Result Encounter Jessie Servando DO Work Phone: [facility] Unsolicited Start: 07-04-2025 End: 07-04-2025 Patient encounter procedure Jessie Servando DO Work Phone: [facility] Work Phone: Start: 07-04-2025 End: 07-04-2025 Periodic preventive med est patient 18-39 yrs Jessie Servando DO Work Phone: [facility] Comment on above: Well woman exam with routine gynecological exam; Vaginal discharge; STD exposure; Second trimester ([facility]); 24 weeks gestation of ([facility]); Diabetes mellitus screening Start: 07-04-2025 End: 07-04-2025 ambulatory JESSIE SERVANDO Not Available Start: 07-04-2025 End: 07-04-2025 Bamboo flowsheet Jessie Servando DO Work Phone: [facility] Start: 07-04-2025 End: 07-11-2025 Bamboo flowsheet Jessie Servando DO Work Phone: [facility] Start: 07-04-2025 End: 07-11-2025 Clinisync Result Encounter [...] 06-05-2025 flow sheet Gabby CHANEL Work Phone: [facility] Comment on above: Second trimester pre gnancy ([facility]); 20 weeks gestation of ([facility]); Encounter for follow-up ultrasound of anatomy ([facility]) Start: 06-05-2025 End: 06-05-2025 ambulatory GABBY LINDER Not Available Start: 06-05-2025 End: 06-05-2025 Bamboo flowsheet Gabby CHANEL Work Phone: [facility] Start: 06-05-2025 End: 06-05-2025 Bamboo flowsheet Gabby CHANEL Work Phone: [facility] Start: 06-04-2025 End: 06-04-2025 Clinisync Result Encounter [...] Comment on above: Second trimester pre gnancy ([facility]); 16 weeks gestation of ([facility]); Screening, , for anatomic survey ([facility]) Start: 04-09-2025 End: 04-09-2025 ambulatory JESSIE SERVANDO [...] External Department Unsolicited Start: 03-13-2025 ambulatory [place] RAY Facility: [facility] Start: 03-09-2025 End: 03-09-2025 Office outpatient [...] 05-04-2024 End: 05-04-2024 ambulatory [place] A KAPLE Facility:[facility] Start: 05-04-2024 End: 05-04-2024 Patient encounter procedure [place] A KAPLE [facility] Start: 03-30-2024 End: 03-30-2024 ambulatory [place] A KAPLE Facility:[facility] Start: 03-30-2024 End: 03-30-2024 Patient encounter procedure [place] A KAPLE [facility] Start: 03-06-2024 End: 03-06-2024 ambulatory [place] A KAPLE Facility:[facility] Start: 03-06-2024 End: 03-06-2024 Patient encounter procedure [place] A KAPLE [facility] Start: 02-03-2024 End: 02-03-2024 ambulatory [place] RAY Facility:[place] Start: 02-03-2024 End: 02-03-2024 Patient encounter procedure [place] A JOHNLE [facility] Start: 01-06-2024 End: 01-06-2024 Patient encounter procedure [place] A KAPLE [facility] Start: 12-06-2023 End: 12-06-2023 Patient encounter procedure [place] A KAPLE [facility] Start: 11-04-2023 End: 11-04-2023 Patient encounter procedure [place] A JOHNLE [facility] Start: 05-03-2023 End: 05-03-2023 Patient encounter procedure [place] A KAPLE [facility] Start: 02-22-2023 End: 02-22-2023 Patient encounter procedure [place] A KAPLE [facility] Start: 01-22-2023 End: 01-22-2023 Patient encounter procedure [place] A KAPLE [facility] Start: 01-16-2023 End: 01-16-2023 Patient encounter procedure [place] A KAPLE [facility] Start: 01-14-2023 End: 01-14-2023 Patient encounter procedure [place] JOHN[place]UL[place] CESAR [facility] Start: 01-14-2023 End: 01-14-2023 Well adult monitoring check done [place] AURELIO [facility] Procedures Date Procedure Procedure Detail Performing Clinician Start: 08-01-2025 Urnls dip stick/tabl et rgnt non-auto w/o micrscp Gabby CHANEL Work Phone: Start: 07-18-2025 GLUCOSE 1 HOUR Jessie Fa zio DO Work Phone: Start: 07-04-2025 RECURRENT VAGINITIS (HTRX) Jessie Servando [...] Work Phone: Start: 03-19-2025 BOX TEST Jessie Elizondozi o DO Work Phone: Start: 11-20-2024 LABORATORY DIRECTOR INSERTION/REMOVA L OF CONTRACEPTIVE CAPSULE Jessie Servando DO Work Phone: Start: 07-03-2024 ELCH PAP IMAGE GUIDED C glenn Carballoo DO Work Phone: None (qualifier value) [place] RAY Plan of Treatment Date Care Activity Detail Author Start: 08-15-2025 End: 08-15-2025 Patient encounter procedure 08/15/2025 11:20 AM EDT Routine [facility] [address] [place] [address] Kristy Goel, [employer]PERVISOR [address] [place] [address] [facility] Start: 08-15-2025 End: 08-15-2025 Professional / ancillary services management 08/15/2025 11:00 AM EDT Ancillary Procedure [facility] [address] [place] [address] [facility] Start: 08-01-2025 End: 08-01-2025 Patient encounter procedure [facility] Comment on above: Arrived Start: 08-01-2025 End: 12-01-2025 US for US OB follow up transabdominal approach Imaging Routine size inconsistent with dates ([facility]) Expected: 08/01/2025, Expires: 12/01/2025 [facility] Work Phone: Comment on above: Expected: 08/01/2025 , Expires: 12/01/2025 Start: 07-04-2025 End: 07-04-2025 Patient encounter procedure [facility] Comment on above: Arrived Start: 07-04-2025 End: 07-04-2026 CBC panel - Blood by Automated count CBC Lab Routine Diabetes mellitus screening Expected: 07/04/2025 (Approximate), Expires: 07/04/2026 [facility] Work Phone: Comment on above: Expected: 07/04/2025 (Approximate), Expires: 07/04/2026 Start: 07-04-2025 End: 07-04-2026 Measurement of glucose 1 hour after glucose challenge for glucose tolerance test Glucose tolerance, 1 hour Lab Routine Diabetes mellitus screening Expected: 07/04/2025 (Approximate), Expires: 07/04/2026 [facility] Comment on above: Expected: 07/04/2025 (Approximate), Expires: 07/04/2026 Start: 06-05-2025 End: 06-05-2025 Patient encounter procedure [facility] Comment on above: Arrived Start: 06-05-2025 End: 09-05-2025 US for US OB limited 1+ fetuses Imaging Routine Encounter for follow-up ultrasound of anatomy ([facility]) Expected: 06/05/2025, Expires: 09/05/2025 [facility] Work Phone: Comment on above: Expected: 06/05/2025 , Expires: 09/05/2025 Start: 05-31-2025 End: 05-31-2025 Patient encounter procedure 05/31/2025 8:30 AM EDT Office Visit [facility] [address] [place] [id number] Jessie Al, DO [address] [address] [facility] Start: 05-08-2025 End: 11-08-2025 Alpha fetoprotein, maternal Alpha fetoprotein, maternal Lab Routine Second trimester ([facility]) 16 weeks gestation of ([facility]) Expected: 05/08/2025 (Approximate), Expires: 11/08/2025 [facility] Work Phone: Comment on above: Expected: 05/08/2025 (Approximate), Expires: 11/08/2025 Start: 05-08-2025 End: 08-08-2025 US for US OB 14+ weeks anatomy scan Imaging Routine Screening, , for anatomic survey ([facility]) Expected: 05/08/2025, Expires: 08/08/2025 [facility] Comment on above: Expected: 05/08/2025 , Expires: 08/08/2025 Start: 05-08-2025 End: 05-08-2025 Patient encounter procedure 05/08/2025 9:10 AM EDT Routine [facility] [address] [place] [id number] Jessie Al, DO [address] [address] [facility] Start: 04-09-2025 End: 04-09-2025 Patient encounter procedure 04/09/2025 3:10 PM EDT Routine [facility] [address] [place] [id number] Jessie Al, DO [address] [address] [facility] Start: 03-09-2025 End: 03-09-2026 ABO/Rh ABO/Rh Lab Routine Missed menses , unspecified gestational age Expected: 03/09/2025 (Approximate), Expires: 03/09/2026 [facility] Comment on above: Expected: 03/09/2025 (Approximate), Expires: 03/09/2026 Start: 03-09-2025 End: 03-09-2026 Blood type and Indirect antibody screen panel - Blood Type and screen Lab Routine Missed menses , unspecified gestational age Expected: 03/09/2025 (Approximate), Expires: 03/09/2026 [facility] Work Phone: Comment on above: Expected: 03/09/2025 (Approximate), Expires: 03/09/2026 Start: 03-09-2025 End: 03-09-2026 Drugs of abuse panel - Urine by Screen method Rapid drug screen, urine Lab Routine , unspecified gestational age Encounter for supervision of normal first in first trimester Expected: 03/09/2025 (Approximate), Expires: 03/09/2026 [facility] Comment on above: Expected: 03/09/2025 (Approximate), Expires: 03/09/2026 Start: 11-20-2024 End: 11-20-2024 Patient encounter procedure 11/20/2024 3:30 PM EST Procedure Visit [facility] [address] [place] [phone] Jessie Al, DO [address] [address] [facility] Start: 07-03-2024 End: 07-03-2024 Patient encounter procedure 07/03/2024 2:20 PM EDT Procedure Visit [facility] [address] [phone] Jessie Al, DO [address] [place] [address] Arrived [facility] Comment on above: Arrived Bacteria identified in Urine by Culture Urine culture Microbiology Routine Missed menses Ordered: 03/09/2025 [facility] Comment on above: Ordered: 03/09/2025 CBC W Auto Different ial panel - Blood CBC and differential Lab Routine Missed menses , unspecified gestational age Ordered: 03/09/2025 [facility] Comment on above: Ordered: 03/09/2025 Cytology Cervical or vaginal smear or scraping study Pap Smear Pathology and Cytology Routine Encounter for repeat Pap smear due to previous insufficient cervical cells Ordered: 07/03/2024 [facility] Work Phone: Comment on above: Ordered: 07/03/2024 Cytology Cervical or vaginal smear or scraping study Pap Smear Pathology and Cytology Routine Well woman exam with routine gynecological exam Ordered: 07/04/2025 [facility] Comment on above: Ordered: 07/04/2025 Hemoglobin A1c/Hemoglobin.total in Blood Hemoglobin A1c Lab Routine Missed menses , unspecified gestational age Ordered: 03/09/2025 [facility] Comment on above: Ordered: 03/09/2025 Hepatitis B virus surface Ag [Presence] in Serum or Plasma by Immunoassay Hepatitis B surface antigen Lab Routine Missed menses , unspecified gestational age Ordered: 03/09/2025 [facility] Comment on above: Ordered: 03/09/2025 Hepatitis C virus Ab [Presence] in Serum or Plasma by Immunoassay Hepatitis C antibody Lab Routine Missed menses , unspecified gestational age Ordered: 03/09/2025 [facility] Comment on above: Ordered: 03/09/2025 HIV-1/HIV-2 antigen/antibody combination immunoassay HIV-1 and HIV-2 antibodies Lab Routine Missed menses , unspecified gestational age Ordered: 03/09/2025 [facility] Comment on above: Ordered: 03/09/2025 Reagin Ab [Presence] in Serum by RPR RPR Lab Routine Missed menses , unspecified gestational age Ordered: 03/09/2025 [facility] Comment on above: Ordered: 03/09/2025 Rubella antibody, IgG Rubella an tibody, IgG Lab Routine Missed menses , unspecified gestational age Ordered: 03/09/2025 [facility] Comment on above: Ordered: 03/09/2025 Immunizations Immunization Date Immunization Notes Care Provider Fa [facility] 09-18-2020 influenza virus vaccine, unspecified formulation [place] R[place] [facility] 05-04-2020 tetanus toxoid, unspecified formulation [place] R[place] [facility] 05-04-2020 tetanus toxoid, reduced diphtheria toxoid, and acellular pertussis vaccine, adsorbed [place] R[place] [facility] 07-22-2017 meningococcal ACWY vaccine, unspecified formulation [place] R[place] [facility] 07-22-2017 meningococcal B vaccine, fully recombinant [place] R[place] [facility] 07-20-2012 diphtheria, tetanus toxoids and acellular pertussis vaccine [place] R[place] [facility] 07-20-2012 HPV, unspecified formulation [place] K[place]LE [facility] 07-20-2012 meningococcal ACWY vaccine, unspecified formulation [place] [facility] 04-03-2005 DTaP, unspecified formulation [place] [facility] 04-03-2005 measles, mumps and rubella virus vaccine [place] K[place] [facility] 04-03-2005 poliovirus vaccine, unspecified formulation [place] [facility] 07-24-2003 diphtheria, tetanus toxoids and acellular pertussis vaccine [place] [facility] 07-24-2003 haemophilus influenz ae type b vaccine, PRP-OMP conjugate [place] KAPLE [facility] 07-24-2003 hepatitis B vaccine, pediatric or pediatric/adolescent dosage [place] KAP[facility] 07-24-2003 poliovirus vaccine, unspecified formulation [place] KAPLE [facility] 08-30-2002 varicella virus vaccine [place] KAPLE [facility] 08-24-2001 hepatitis B vaccine, pediatric or pediatric/adolescent dosage [place] KAPLE [facility] 08-24-2001 measles, mumps and rubella virus vaccine [place] KAPLE [facility] 08-24-2001 varicella virus vaccine [place] KAPLE [facility] 03-11-2000 hepatitis B vaccine, pediatric or pediatric/adolescent dosage [place] KAPLE [facility] 01-06-2000 poliovirus vaccine, unspecified formulation [place] KAPLE [facility] 1999 poliovirus vaccine, unspecified formulation [place] RAY [facility] NEGATED: Highlighted row has not occurred!01-22-2023 influenza virus vaccine, unspecified formulation [place] RAY [facility] Payers Date Payer Category Payer [place] Blue [employer] BCBS Memb er Subscriber Plan / Payer (Effective 2021-Present) Name: Alejo Overton Relation to Subscriber: Self Name: Alejo Overton Payer ID: Not on file Type: Not on file Address: [address] [place] [id number] 2021 Unknown BCBS BCBS xxxxxx [id number] 2021- [phone] [id number] [place], [place] [id number] 2021 Unknown [id number] 1999 Unknown [id number] 9.2.727 1999 Unknown [id number] 9.2.727 1999 Unknown [id number] 9.2.727 1999 Unknown [id number] 9.2.727 1999 Unknown [id number] 9.2.727 1999 Unknown [id number] [id number] 9.2.1259 1999 Unknown [id number] 9.2.1259 1999 Unknown [id number] 9.2.1259 1999 Unknown [id number] 9.2.1259 1999 Unknown [id number] 9.2.1259 1999 Unknown [id number] [id number] 9.2.1259 1999 Unknown [id number] 9.2.1259 1999 Unknown [id number] 9.2.1259 Social History Date Type Detail Facility Start: 01-14-2023 End: 05-26-2023 Tobacco smoking status Never smoked tobacco (finding) [facility] Start: 05-27-2023 End: 07-03-2024 Sex Assigned At Female [facility] Start: 07-03-2024 End: 05-08-2025 Alcoholic beverage intake Current drinker of alcohol (finding) [facility] Start: 05-27-2023 End: 07-03-2024 History of Social function [facility] Start: 05-26-2023 Alcohol Comment Alcohol: month ly or less. Caffeine: none [facility] Start: 1999 Sex assigned at Not on file [facility] Start: 01-29-2025 [facility] Functional Status Date Assessment Result Facility 05-04-2024 Functional Status N/A [facility] 03-30-2024 Functional Status N/A [facility] 03-06-2024 Functional Status N/A [facility] 02-03-2024 Functional Status N/A [facility] 01-06-2024 Functional Status N/A [facility] 12-06-2023 Functional Status N/A [facility] 11-04-2023 Functional Status N/A [facility] 05-03-2023 Functional Status N/A [facility] 02-22-2023 Functional Status N/A [facility] 01-22-2023 Functional Status N/A [facility] 01-14-2023 Functional Status N/A [facility] Clinical Notes 01-14-2023 to 08-01-2025 DARÍO Bravo - 08/01/2025 3:00 PM Wendy Pat LPN - 07/04/2025 2:50 PM DARÍO Uribe - 06/05/2025 2:30 PM Wendy Pat LPN - 05/08/2025 9:10 AM EDUmberto Brice - 04/09/2025 3:10 PM EDT Note Date & Type Note Facility 08-01-2025 History of Presen t illness Narrative Reason [...] nursing note reviewed. Exam conducted with a computer hardware developer present. Vitals: Estimated body mass index is 34.58 kg/m as calculated from the following: Height as of 05/29/24: 5' 10 . Weight as of this encounter: 241 lb. BP: 112/70 Patient's last menstrual period was 01/04/2025. ASSESSMENT & PLAN ICD-10-CM 1. Third trimester ([facility]) Z34.93 POCT urinalysis dipstick manually resulted 2. 28 weeks gestation of ([facility]) Z3A.28 Return OB: Patient presents today [...] of: DARÍO Bravo documented in this encounter [facility] 07-04-2025 History of Presen t illness Narrative [...] nursing note reviewed. Exam conducted with a computer hardware developer present. Vitals: Estimated body mass index is 33.83 kg/m as calculated from the following: Height as of 05/29/24: 5' 10 . Weight as of this encounter: 235 lb 12.8 oz. BP: 114/70 Patient's last menstrual period was 01/04/2025. ASSESSMENT & PLAN ICD-10-CM 1. Well woman exam with routine gynecological exam Z01.419 2. Vaginal discharge N89.8 3. STD exposure Z20.2 4. Second trimester ([facility]) Z34.92 POCT urinalysis dipstick manually resulted 5. 24 weeks gestation of ([facility]) Z3A.24 POCT urinalysis dipstick manually resulted [...] Jessie Al DO documented in this encounter [facility] 06-05-2025 History of Presen t illness Narrative [...] ASSESSMENT & PLAN ICD-10-CM 1. Second trimester ([facility]) Z34.92 2. 20 weeks gestation of ([facility]) Z3A.20 Return OB: Patient presents today for [...] of: DARÍO Bravo documented in this encounter [facility] 05-08-2025 History of Presen t illness Narrative [...] nursing note reviewed. Exam conducted with a computer hardware developer present. Vitals: Estimated body mass index is 32.11 kg/m as calculated from the following: Height as of 05/29/24: 5' 10 . Weight as of this encounter: 223 lb 12.8 oz. BP: 118/72 Patient's last menstrual period was 01/04/2025. ASSESSMENT & PLAN ICD-10-CM 1. Second trimester ([facility]) Z34.92 POCT urinalysis dipstick manually resulted Alpha fetoprotein, maternal Alpha fetoprotein, maternal 2. 16 weeks gestation of ([facility]) Z3A.16 POCT urinalysis dipstick manually resulted Alpha fetoprotein, maternal Alpha fetoprotein, maternal 3. Screening, , for anatomic survey ([facility]) Z36.89 OB 14+ weeks anatomy scan Patient presents today for a routine obstetrics appointment. Patient is currently 16w1d with a Estimated Date of Delivery: 10/22/25. Pt given msAFP order and anatomy scan order to have obtained. Pt to return in 4 weeks for scheduled OB appt. Documented by Yesenia Pat LPN on behalf of: Jessie Al DO documented in this encounter [facility] 04-09-2025 History of Presen t illness Narrative [...] nursing note reviewed. Exam conducted with a computer hardware developer present. Vitals: Estimated body mass index is [...] or undercooked meat, and stay away from [facility]. Patient has been consulted regarding any [...] Gabby Linder PA-C documented in this encounter [facility] 03-09-2025 History of Presen t illness Narrative [...] or undercooked meat, and stay away from [facility]. Patient has also been advised to [...] Jacinda Storm LPN documented in this encounter [facility] 11-20-2024 History of Presen t illness Narrative [...] nursing note reviewed. Exam conducted with a computer hardware developer present. Vitals: Estimated body mass index is [...] Jessie Al DO documented in this encounter [facility] 07-03-2024 History of Presen t illness Narrative [...] nursing note reviewed. Exam conducted with a computer hardware developer present. Vitals: Estimated body mass index is [...] Jessie Al DO documented in this encounter [facility] 05-04-2024 Hospital Discharg e instructions Patient Education [...] health care provider or diet and nutrition assistant (dietitian). This may include: ?Eating fewer calories. [...] provider. Document Revised: 12/21/2021 Document Reviewed: 12/21/2021 [employer] Patient Education 2022 [employer]. Follow Up Care 02/03/2024 08:31:57 With:AURELIO BAJWA FAAFP, Cleveland Santo, DAE, PED Address: [place] [address]- When:Within 6 Month(s) [facility] 05-04-2024 Note Patient Education [...] health care provider or diet and nutrition assistant (dietitian). This may include: ? Eating fewer [...] ? Getting r (more content not included)... [facility] 03-30-2024 Hospital Discharg e instructions Patient Education [...] numbers. This can be done either in Nauruan ([place] or metric measurements. Note that charts and online BMI calculators are available to help you find your BMI quickly and easily without having to do these calculations yourself. To calculate your BMI in [place]auruan ([place] measurements: 1.Measure your weight in pounds [...] Centers for Disease Control and Prevention: www.cdc.gov [employer] Heart Association: www.heart.org National Heart, Lung, and Blood Thayer: www.nhlbi.nih.gov Summary Body mass index (BMI) is a number that is calculated from a person's weight and height. BMI may help estimate how much of a person's weight is composed of fat. BMI can help identify those who may be at higher risk for certain medical problems. BMI can be measured using Nauruan measurements or metric measurements. BMI charts are used to identify whether you are underweight, normal weight, overweight, or obese. This information is not intended to replace advice given to you by your health care provider. Make sure you discuss any questions you have with your health care provider. Document Revised: 07/17/2020 Document Reviewed: 05/24/2020 [employer] Patient Education 2022 [employer]. Follow Up Care 02/03/2024 08:30:45 With:AURELIO BAJWA FAAFP, [place] Santo, DAE, PED Address: [place] [address]- When:Within 1 Month(s) [facility] 03-06-2024 Hospital Discharg e [...] health care provider or diet and nutrition assistant (dietitian). This may include: ?Eating fewer calories. [...] Document Reviewed: 12/21/2021 Elsevier Patient Education 2022 [employer]. Follow Up Care 02/03/2024 08:29:28 With:AURELIO BAJWA FAAFP, Cleveland Santo, DAE, PED [facility] [place] [address]- When:Within 1 Month(s) [facility] 02-03-2024 Hospital Discharg e [...] health care provider or diet and nutrition assistant (dietitian). This may include: ?Eating fewer calories. [...] Document Reviewed: 12/21/2021 Elsevier Patient Education 2022 [employer]. Follow Up Care 11/04/2023 08:09:51 With:AURELIO BAJWA FAAFP, DAE Newsome, PED Address: [place] [address]- When:Within 1 Month(s) [facility] 01-06-2024 Hospital Discharg e [...] frozen fruits, and frozen vegetables. Avoid buying zaxdp-jq-waa foods, such as pre-cut fruits and vegetables and pre-made salads. If possible, shop around to discover where you can find the best prices. Consider other retailers such as dollar stores, larger wholesale stores, local fruit and vegetable [employer], and [employer] markets. Do not shop when you are [...] provider. Document Revised: 08/07/2021 Document Reviewed: 08/07/2021 [employer] Patient Education 2022 [employer]. Follow Up Care 11/04/2023 08:09:40 With:AURELIO BAJWA FAAFP, Cleveland Santo, DAE, PED Address: [address], [facility] [place] [address]- When:Within 1 Month(s) [facility] 12-06-2023 Hospital Discharg e [...] including vitamins, herbs, eye drops, creams, and ukgy-pjx-ldutlkv medicines. Any problems you or family members [...] and water are not available, use hand tacking machine operator. ?Change your dressing as told by [...] or a bad smell. General instructions Take pmbj-wvn-ecedkpg and prescription medicines only as told by [...] and water are not available, use hand tacking machine operator. Contact your health care provider if you have problems or questions. This information is not intended to replace advice given to you by your health care provider. Make sure you discuss any questions you have with your health care provider. Document Revised: 07/16/2022 Document Reviewed: 07/16/2022 [employer] Patient Education 2022 [employer]. Follow Up Care 11/04/2023 08:09:24 With:AURELIO BAJWA FAAFP, [place] Santo, DAE, PED Address: [address], [place] [address]- When:Within 1 Month(s) [facility] 11-04-2023 Hospital Discharg e [...] health care provider or diet and nutrition assistant (dietitian). This may include: ?Eating fewer calories. [...] provider. Document Revised: 12/21/2021 Document Reviewed: 12/21/2021 [employer] Patient Education 2022 [employer]. Follow Up Care 05/03/2023 08:02:20 With:AURELIO BAJWA FAAFP, DAE Newsome, PED Address: [address] [place] [address] [place] [address]- When:Within 1 Month(s) [facility] 05-03-2023 Hospital Discharg e [...] health care provider or diet and nutrition assistant (dietitian). This may include: ?Eating fewer calories. [...] provider. Document Revised: 12/21/2021 Document Reviewed: 12/21/2021 [employer]los Patient Education 2022 [employer] Follow Up Care 01/22/2023 13:52:08 With:AURELIO BAJWA FAAFP, Cleveland Santo, FAM, PED Address: [place] [address]- When:Within 6 Month(s) [facility] 02-22-2023 Hospital Discharg e [...] frozen fruits, and frozen vegetables. Avoid buying fhhif-vw-crd foods, such as pre-cut fruits and vegetables [...] 06/28/2015 Document Revised: 10/26/2018 Document Reviewed: 10/26/2018 [employer] Patient Education 2020 [employer]. Follow Up Care 01/22/2023 13:49:16 With:AURELIO BAJWA FAAFP, [place] Santo, FAM, PED Address: [address], [place] [address]- When:Within 1 Month(s) [facility] 01-22-2023 Hospital Discharg e [...] health care provider or diet and nutrition assistant (dietitian). This may include: ?Eating fewer calories. [...] 11/27/2011 Document Revised: 11/07/2018 Document Reviewed: 11/07/2018 Elsevier Patient Education 2020 [employer]. Follow Up Care 01/21/2023 16:09:28 With:AURELIO FERRAROFP, Cleveland Santo, FAM, PED Address: [place] [address]- When:Within 1 Month(s) [facility] 01-14-2023 Evaluation + Plan note Future Scheduled TestsGlucose Fasting 01/14/23Lipid Panel 01/14/23 [facility] 01-14-2023 Hospital Discharg e [...] frozen fruits, and frozen vegetables. Avoid buying obgcv-op-zef foods, such as pre-cut fruits and vegetables and pre-made salads. If possible, shop around to discover where you can find the best prices. Consider other retailers such as [employer] stores, larger [place] stores, local fruit and vegetable [employer], and [employer] markets. Do not shop when you are [...] 06/28/2015 Document Revised: 10/26/2018 Document Reviewed: 10/26/2018 [employer]los Patient Education 2020 [employer] Follow Up Care 12/01/2022 10:38:14 With:AURELIO BAJWA FAAFP, DAE Newsome, PED Address: [address], [place] [address]- When:Within 1 Year(s) [facility] Evaluation + Plan note Future Appointments Appointment Date:02/22/2023 02:40:00 PM Scheduled Provider:Cleveland RAY DO, FAAFP Location:[facility] Appointment Type: Open Appointment Date:03/26/2023 01:20:00 PM Scheduled Provider:Cleveland RAY DO, FAAFP Location:[facility] Appointment Type: Open Appointment Date:04/30/2023 01:20:00 PM Scheduled Provider:Cleveland RAY DO, FAAFP Location:[facility] Appointment Type:[facility] Evaluation + Plan note Future Appointments Appointment Date:03/26/2023 01:20:00 PM Scheduled Provider:Cleveland RAY DO, FAAFP Location:[facility] Appointment Type: Open Appointment Date:04/30/2023 01:20:00 PM Scheduled Provider:Cleveland RAY DO, FAAFP Location:[facility] Appointment Type:[facility] Care Evaluation + Plan note Future Appointments Appointment Date:11/04/2023 07:40:00 AM Scheduled Provider:Cleveland RAY DO, FAAFP Location:[facility] Appointment Type:[facility] Evaluation + Plan note Future Appointments Appointment Date:12/06/2023 08:20:00 AM Scheduled Provider:Cleveland RAY DO, FAAFP Location:[facility] Appointment Type: Open Appointment Date:01/06/2024 08:20:00 AM Scheduled Provider:Cleveland RAY DO, FAAFP Location:[facility] Appointment Type: Open Appointment Date:02/03/2024 08:00:00 AM Scheduled Provider:Cleveland RAY DO, FAAFP Location:[facility] Appointment Type:[facility] Evaluation + Plan note Future Appointments Appointment Date:01/06/2024 08:20:00 AM Scheduled Provider:Cleveland RAY DO, FAAFP Location:[facility] Appointment Type: Open Appointment Date:02/03/2024 08:00:00 AM Scheduled Provider:Cleveland RAY DO, FAAFP Location:[facility] Appointment Type:[facility] Primary Care Evaluation + Plan note Future Appointments Appointment Date:02/03/2024 08:00:00 AM Scheduled Provider:Cleveland RAY DO, FAAFP Location:[facility] Appointment Type:[facility] Care Evaluation + Plan note Future Appointments Appointment Date:03/06/2024 07:40:00 AM Scheduled Provider:Cleveland RAY DO, FAAFP Location:[facility] Appointment Type: Open Appointment Date:03/30/2024 08:20:00 AM Scheduled Provider:Cleveland RAY DO, FAAFP [facility]: Open Appointment Date:05/04/2024 08:20:00 AM Scheduled Provider:Cleveland RAY DO, FAAFP Location:[facility] Appointment Type:[facility] Primary Care Evaluation + Plan note Future Appointments Appointment Date:03/30/2024 08:20:00 AM Scheduled Provider:Cleveland RAY DO, FAAFP Location:[facility] Appointment Type: Open Appointment Date:05/04/2024 08:20:00 AM Scheduled Provider:Cleveland RAY DO, FAAFP Location:[facility] Appointment Type:[facility] Primary Care Evaluation + Plan note Future Appointments Appointment Date:05/04/2024 08:20:00 AM Scheduled Provider:Cleveland RAY DO, FAAFP Location:[facility] Appointment Type:[facility] Evaluation note Diagnosis Encounter [...] ([facility]HS-HCC) state, incidental 16 weeks gestation of ([facility]) Screening, , for anatomic survey ([facility]) Encounter for anatomic survey [facility] Diagnosis Second trimester ([facility]) state, incidental 20 weeks gestation of ([facility]) Encounter for follow-up ultrasound of anatomy ([facility]) [facility]* Diagnosis Well woman exam with routine gynecological exam Routine gynecological examination Vaginal discharge Leukorrhea, not specified as infective STD exposure Second trimester ([facility]) state, incidental 24 weeks gestation of ([facility]) Diabetes mellitus screening Screening for diabetes mellitus documented in this encounter [facility]* Diagnosis size inconsistent with dates ([facility])- Primary Third trimester ([facility]) state, incidental 28 weeks gestation of ([facility]) documented in this encounter [facility] Narrative No data available for this section [facility] Hospital Discharge instructions No data available for this section [facility] No data available for this section [facility] Summary Purpose Family History No Family History Records Found Advance Directives No Advanced Directives Records FoundNo Advanced Directives Records Found Additional Source Comments Patient Care team informatio n (unrecognized section and content) Senior Operations Analyst Relationship Specialty Start Date End Date Cleveland Ray MD [address] [place] [address] PCP - General Family Medicine 05/27/23 Senior Operations Analyst Relationship Specialty Start Date End Date Cleveland Ray MD [address] [place] [address] PCP - General Family Medicine 05/27/23 Senior Operations Analyst Relationship Specialty Start Date End Date Cleveland Ray MD [address] [place] [address] PCP - General Family Medicine 05/27/23 Senior Operations Analyst Relationship Specialty Start Date End Date Cleveland Ray MD [address] [place] [address] PCP - General Family Medicine 05/27/23 Senior Operations Analyst Relationship Specialty Start Date End Date Cleveland Ray MD [address] [place] [address] PCP - General Family Medicine 05/27/23 Senior Operations Analyst Relationship Specialty Start Date End Date Cleveland Ray MD [address] [place] [address] PCP - General Family Medicine 05/27/23 Senior Operations Analyst Relationship Specialty Start Date End Date Cleveland Ray MD [address] [place] [address] PCP - General Family Medicine 05/27/23 Senior Operations Analyst Relationship Specialty Start Date End Date Cleveland Ray MD [address] [place] [address] PCP - General Family Medicine 05/27/23 Senior Operations Analyst Relationship Specialty Start Date End Date Cleveland Ray MD [address] [place] [address] PCP - General Family Medicine 05/27/23 Reason for Visit (unrecogniz ed section and content) Reason Comments Well Women Visit Reason Comments Nexplanon Removal Reason Comments Amenorrhea Reason Comments Routine Visit INFORMATION SOURCE (unrecogn ized section and content) DATE CREATED AUTHOR 01/31/2025 [facility] DATE CREATED AUTHOR AUTHOR'S GLENDA TOWNSEND 08/03/2025 [facility] dical Specialists [facility] FOR RECORDS PERTAINING TO PATIENTS WHO [...] BE BASED ON THE PRIMARY CLINICAL RECORDS. [facility] [employer]. provides no warranty or guarantee of the accuracy or completeness of information in this document.
== END 2025-08-14 19:04 | disposition home or self-care (01) ==
LOC: US 19:03
PROVIDERS: Visit Provider Nurse Practitioner Family
DX: O26.843 Uterine size-date discrepancy, third trimester (principal); Z3A.31 31 weeks gestation of pregnancy
CPT/HCPCS: 76816

== ENCOUNTER 2025-09-27 15:49 | Outpatient (REF) | payer BC, SELFPAY ==
--- OUTSIDE RECORDS SUMMARY | 2025-09-27 08:50 | XMS_ITS | Encounter Summary ---
Author Organization [facility] Address [address] [place] [address] Care Team Providers Care Electric Plater Name Role Phone Mc Ray MD Primary Care Provider Reason for Visit * ReasonCommentsRoutine Visit Encounter Details DateTypeDepartmentCare Team (Latest Contact Info)Sislxpknfql52/20/2025 8:50 AM ESTRoutine [facility] [address] [facility] [place] [address] Alexsander Al DO [address] [facility] [address] [place] [place], [place] [id number] Third trimester ([facility]); 36 weeks gestation of ([facility]) Social History Tobacco UseTypesPacks/DayYears UsedDateSmoking Tobacco: NeverAlcohol UseStandard Drinks/WeekCommentsYes0 (1 standard drink = 0.6 oz pure alcohol)Alcohol: monthly or less. Caffeine: noneEstimated Date of DledbxaqIdrznjceFxw07/15/2025 Based on UltrasoundSex and Gender InformationValueDate RecordedSex Assigned at BirthNot on fileLegal VksZsvgeg78/15/2023 8:15 PM EDTGender IdentityNot on file Sexual OrientationNot on filedocumented as of this encounter Last Filed Vital Signs Vital SignReadingTime TakenCommentsBlood Rixwigtn524/8611 9:07 AM EST Pulse--Temperature--Respiratory Rate--Oxygen Saturation--Inhaled Oxygen Concentration--Hapfxi187 kg (260 lb)09/27/2025 9:07 AM ESTHeight--Body Mass Index37.31005/29/2024 9:13 AM EDTdocumented in this encounter Plan of Treatment DateTypeDepartmentCare Team (Latest Contact Info)Lgrljuyvkkq85/25/2025 8:50 AM ESTRoutine [facility] [address] [facility] [place] [address] Gabby Contreras PA [address] [facility] [address] [place], [facility] NameTypePriorityAssociated DiagnosesOrder ScheduleCULTURE, GROUP B STREP WITH SUSCEPTIBLITYLabRoutine Third trimester ([facility]) Expected: 09/27/2025, Expires: 09/27/2026documented as of this encounter Visit Diagnoses Diagnosis Third trimester ([facility]) state, incidental 36 weeks gestation of ([facility]) documented in this encounter Care Teams Team MemberRelationshipSpecialtyStart DateEnd Date Mc Ray MD [address] [place] [address] PCP - GeneralFamily Medicine05/27/23documented as of this encounter
--- OUTSIDE RECORDS SUMMARY | 2025-09-27 15:54 | XMS_ITS | Encounter Summary ---
Author Organization [facility] Address [address] [place] [address] Care Team Providers Care Banker [place] Name Role Phone Mc Ray MD Primary Care Provider [phone] Encounter Details DateTypeDepartmentCare Team (Latest Contact Info)Lmqwubuzhux59/20/2025amboo flowsheet [facility] [address] [facility] [place] [address] Alexsander Al DO [address] [facility] [address] [place], [facility]11 Social History Tobacco UseTypesPacks/DayYears UsedDateSmoking Tobacco: NeverAlcohol UseStandard Drinks/WeekCommentsYes0 (1 standard drink = 0.6 oz pure alcohol)Alcohol: monthly or less. Caffeine: noneEstimated Date of HkuetjwnOqfpiohzZbu35/15/2025 Based on UltrasoundSex and Gender InformationValueDate RecordedSex Assigned at BirthNot on fileLegal HuuPxbiqf76/15/2023 8:15 PM EDTGender IdentityNot on file Sexual OrientationNot on filedocumented as of this encounter Plan of Treatment DateTypeDepartmentCare Team (Latest Contact Info)Picnewwkvdt03/25/2025 8:50 AM ESTRoutine [facility] [address] [facility] [place] [address] Gabby Contreras PA [address] [facility] [place] [address] documented as of this encounter Visit Diagnoses Not on filedocumented in this encounter Care Teams Team MemberRelationshipSpecialtyStart DateEnd Date Mc Ray MD [address] [place] [address] PCP - GeneralFamily Medicine05/27/23documented as of this encounter
--- OUTSIDE RECORDS SUMMARY | 2025-09-27 15:54 | XMS_ITS | Clinical Summary ---
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 Name Role Phone Mc Ray MD Primary Care Provider Allergies No known active allergies Medications No known medications Encounters DateTypeDepartmentCare TqjkLhpqypjzxvx73/20/2025 8:50 AM ESTRoutine [facility] [place] [address] Alexsander Al DO Third trimester ([facility]); 36 weeks gestation of ([facility])09/27/2025amboo flowsheet ALEX [facility] [place] [address] Alexsander Al DO 09/12/2025 1:30 PM [place]out[place] [address] Gabby Contreras PA Third trimester ([facility]); 34 weeks gestation of ([facility])5[place] [address] Gabby Contreras PA 08/28/2025 1:50 [place] [address] Gabby Contreras PA Third trimester ([facility]); 32 weeks gestation of ([facility])5Bamboo flowsheet [facility] [place] [facility] [address] [facility] [place] [address] Gabby Contreras PA 08/15/2025 11:20 AM EDTRoutine [facility] [address] [facility] [place] [phone] Kristy Goel NP Third trimester ([facility]); 30 weeks gestation of ([facility])08/15/2025linisync Result Encounter NOMS External Department Unsolicited Kristy Goel NP 08/01/2025 3:00 PM EDTRoutine [facility] [address] [facility] [place] [address] Gabby Contreras PA size inconsistent with dates ([facility]) (Primary Dx); Third trimester ([facility]); 28 weeks gestation of ([facility])5Bamboo flowsheet [facility] [address] [facility] [place] [address] Gabby Contreras PA 5Clinisync Result Encounter NOMS External Department Unsolicited Alexsander Al DO 07/12/2025Orders Only [facility] [place] [facility] [address] [place] [address] Jacinda Storm LPN 07/06/2025Telephone [facility] [address] [place] [address] Alexsander Al DO 07/04/2025 2:50 PM EDTRoutine [facility] [place] [facility] [address] [facility] [place] [address] Alexsander Al DO Well woman exam with routine gynecological exam; Vaginal discharge; STD exposure; Second trimester ([facility]); 24 weeks gestation of ([facility]); Diabetes mellitus /27/2025linisync Result Encounter NOMS External Department Unsolicited Alexsander Al, 07/04/2025External Result Encounter NOMS External Department Unsolicited Alexsander Al, 07/04/2025amboo flowsheet [facility] [address] [place] [address] Alexsander Al, from Last 3 Months Family History Medical HistoryRelationNameCommentsNo Known ProblemsBrother3 brothersCOVIDFather No Known ProblemsSister2 sistersRelationNameStatusCommentsBrotherAliveFather DeceasedMaternal GrandfatherAliveMaternal GrandmotherAliveMotherAlivePaternal GrandfatherDeceasedPaternal GrandmotherDeceasedSisterAlive Social History Tobacco UseTypesPacks/DayYears UsedDateSmoking Tobacco: Never Tobacco Cessation:Counseling Given: Not Answered Alcohol UseStandard Drinks/WeekCommentsYes0 (1 standard drink = 0.6 oz pure alcohol)Alcohol: monthly or less. Caffeine: noneEstimated Date of CszjplzgJunjhrnaOsu10/15/2025ased on UltrasoundSex and Gender InformationValue Date RecordedSex Assigned at BirthNot on fileLegal WhgShvuxg73/15/2023 8:15 PM EDTGender IdentityNot on fileSexual OrientationNot on file Last Filed Vital Signs Vital SignReadingTime TakenCommentsBlood Jyncqdth598/8609/27/2025 9:07 AM EST Pulse--Temperature--Respiratory Rate--Oxygen Saturation--Inhaled Oxygen Concentration--Vmcxmu724 kg (260 lb)09/27/2025 9:07 AM KNHZdclnb174.8 cm (5' 10 )05/29/2024 9:13 AM EDTBody Mass Index37.31005/29/2024 9:13 AM EDT Plan of Treatment DateTypeDepartmentCare Team (Latest Contact Info)Lblgghwtuix11/25/2025 8:50 AM ESTRoutine [facility] [address] [place] [address] Gabby Contreras PA [address] [place] [address] [place] [address] Procedures Procedure NamePriorityDate/TimeAssociated DiagnosisCommentsPOCT URINALYSIS ACUCLFQPIihkwqg25/05/2025 1:41 PM EST Third trimester ([facility]) POCT URINALYSIS IKSXEQZBFciysnw37/21/2025 2:07 PM EDT 32 weeks gestation of ([facility]) POCT URINALYSIS NEMOIVVWWovntjx03/08/2025 11:31 AM EDT 30 weeks gestation of ([facility]) US OB OFGTKC8108/15/2025 7:51 AM EDT POCT URINALYSIS KNWJLWFIFjxaysa75/24/2025 3:13 PM EDT Third trimester ([facility]) ALL CBC WITH AUTO VJHOVloldyh47/10/2025 8:33 AM EDT GLUCOSE 1 PDXIOpbbeoo33/10/2025 8:33 AM EDT RECURRENT VAGINITIS (HTRX)Pdvpjfv2107/04/2025 4:16 PM EDT POCT URINALYSIS AIWWEGRRUnimulo65/27/2025 3:14 PM EDT Second trimester ([facility]) 24 weeks gestation of ([facility]) IGP,APTIMA HPV,AGE CQOYNrsicdf16/27/2025 2:52 PM EDT PAP DUFZIJtxqqcy45/27/2025 12:00 AM EDTfrom Last 3 Months Results * POCT urinalysis dipstick manually resulted (09/12/2025 1:41 PM EST) Only the most recent of5 resultswithin the time period is included. ComponentValueRef RangeTest MethodAnalysis TimePerformed AtPathologist Signature Color, UAYellowClarity, UAClearGlucose, UANegativeNegative - 2000(110) ++++ mg/dLBilirubin, UANegativeNegative - 4(70) +++ mg/dLKetones, UANegativeNegative - 160(16) ++++ mg/dLSpec Grav, UA1.0251 - 1.03Blood, UANegativeNegative - 50 Ming/mcLpH, UA6.05 - 9Protein, UANegativeNegative - 2000(20) ++++ mg/dL Urobilinogen, UA0.20.2 - 12 mg/dLLeukocytes, UANegativeNegative - 500+++ Manpreet/mcL Nitrite, UANegativeNegative - PositiveSpecimen (Source)Anatomical Location / LateralityCollection Method / VolumeCollection TimeReceived SqldWphxh72/05/2025 1:41 PM EST Narrative Authorizing ProviderResult TypeResult StatusSaint [facility] TEST ENTER/EDIT ORDERABLESFinal Result * US OB GROWTH (08/15/2025 7:51 AM EDT)Anatomical RegionLateralityModalityOther Specimen (Source)Anatomical Location / LateralityCollection Method / Volume Collection TimeReceived Time08/15/2025 7:51 AM EDT Narrative 08/15/2025 7:54 AM EDT [facility] ?[address] ? [place] [address] ? Ultrasound Report ? Signed ? Patient: ALEJO OVERTON ?MR#: [id number] ?? : 2000 ?Acct:[id number] ?? Age/Sex: 24 / F ?ADM Date: 08/14/25 ?? Loc: US ? Attending Dr: Kristy Goel ? Ordering Physician: Kristy Goel ?? Date of Service: 08/14/25 ?? Procedure(s): US OB growth ?? Accession Number(s): [id number] ? cc: Kristy Goel; Physician,Non-Staff M.D. ? [facility] ? [address] ? [place] [address] ? Patient Name: ?? ALEJO OVERTON ? MRN: [facility]:[id number] ? date: 2000 ?Sex: F ?? Assigned Patient Location: US ?? Current Patient Location: ? Accession/Order Number: [id number] ?? Exam Date: 08/14/2025 ??19:06 ?Report Date: 08/15/2025 ??07:51 ? At the request of: ?? KRISTY ??SHELIA ? Procedure: ??US OB growth ? ULTRASOUND OB GROWTH ? COMPARISON: 06/12/2025 and 06/04/2025 ? CLINICAL DATA: size inconsistent with dates ? There is a single live intrauterine gestation in cephalic presentation. ??There ?? is cardiac and somatic activity with heart rate of 141 beats per ?? minutes. ??The imaged placenta is anterior. ??The amniotic fluid index measures ?? 16.52 cm. ??This is in upper normal range. ??The following measurements were ?? obtained: ?? Biparietal diameter ?7.6 cm ?? 30 weeks 4 days ?51% ?? Head circumference ?28.7 cm ?? 31 weeks 3 days ?54% ?? Abdominal circumference ?? 26.9 cm ?? 31 weeks 0 days ?70% ?? Femur length ?6.0 cm ?? 31 weeks 1 day ? 65% ?? The composite ultrasound age based these measurements is 31 weeks 0 days +/- 2 ?? weeks 1 day. ??The estimated date of delivery is October 16, 2025. ??The ?? estimated weight is 3 lbs. 12 oz. +/- ounces (70%). ? US/US OB growth ?? IMPRESSION: ? SINGLE LIVE INTRAUTERINE GESTATION WITH TODAY'S ULTRASOUND AGE OF 31 WEEKS 0 ?? DAYS. ? Impression dictated by: Yesenia Rios M.D. ??08/15/2025 7:51 AM ? Dictation Location: [facility]--02 ? Electronically authenticated by: [id number] ??Y ?? Date: 08/15/2025 ??07:51 ? Dictated By: ?Yesenia Rios M.D. ? Signed By: ?08/15/25 0754 ? DD/ 0751 ? TD/TT: ? Phone Manager: Procedure Note Radiology, Radiologist, MD - 10/08/2025 [place] [address] Ultrasound Report Signed Patient: ALEJO OVERTON MMR#: [id number] : 2000Acct:[id number] Age/Sex: 24 / FADM Date: 08/14/25 Loc: US Attending Dr: Kristy Goel Ordering Physician: Kristy Goel Date of Service: 08/14/25 Procedure(s): US OB growth Accession Number(s): [id number] cc: Kristy Goel; Physician,Non-Staff MGladis [facility] [place] [id number] Patient Name: ALEJO OVERTON MRN: [id number]:[id number] date: 2000 Sex: F Assigned Patient Location: US Current Patient Location: Accession/Order Number: [id number] Exam Date: 08/14/2025 19:06 Report Date: 08/15/2025 07:51 At the request of: KRISTY GOEL Procedure: US OB growth ULTRASOUND OB GROWTH COMPARISON: 06/12/2025 and 06/04/2025 CLINICAL DATA: size inconsistent with dates There is a single live intrauterine gestation in cephalic presentation.There is cardiac and somatic activity with heart rate of 141 beats per minutes. The imaged placenta is anterior. The amniotic fluid indexmeasures 16.52 cm. This is in upper normal range. The following measurements were obtained: Biparietal diameter 7.6 cm 30 weeks 4 days 51% Head circumference 28.7 cm 31 weeks 3 days 54% Abdominal circumference 26.9 cm 31 weeks 0 days 70% Femur length 6.0 cm 31 weeks 1 day 65% The composite ultrasound age based these measurements is 31 weeks 0 days+/- 2 weeks 1 day. The estimated date of delivery is October 16, 2025. The estimated weight is 3 lbs. 12 oz. +/- ounces (70%). US/US OB growth IMPRESSION: SINGLE LIVE INTRAUTERINE GESTATION WITH TODAY'S ULTRASOUND AGE OF 31 WEEKS0 DAYS. Impression dictated by: Yesenia Rios M.D. 08/15/2025 7:51 AM Dictation Location: [place] [address] Electronically authenticated by: [id number] Y Date: 7:51 Dictated By: Yesenia Rios M.D. Signed By:08/15/25 0754 DD/ 0751 TD/TT: Phone Manager: Authorizing ProviderResult TypeResult StatusKristy Goel NPCLINISYNC IMAGING Final Result * GLUCOSE 1 HOUR (07/18/2025 8:33 AM EDT)ComponentValueRef RangeTest Method Analysis TimePerformed AtPathologist SignatureGLUCOSE 1 CIIH069<130 mg/dLTBH Specimen (Source)Anatomical Location / LateralityCollection Method / Volume Collection TimeReceived Time07/18/2025 8:33 AM EDT07/18/2025 8:34 AM EDT Narrative CLINISYNC - 07/18/2025 8:57 AM EDT Authorizing ProviderResult TypeResult StatusCorey Servando DOLAB BLOOD ORDERABLES Final ResultPerforming OrganizationAddressCity/State/ZIP CodePhone Number [facility]INIS[facility]NC [facility] * (ABNORMAL) ALL CBC WITH AUTO DIFF (07/18/2025 8:33 AM EDT)ComponentValueRef RangeTest MethodAnalysis TimePerformed AtPathologist SignatureTBH WBC9.34.0 - 11.0 10 3/uLTBHTBH RBC4.00(L)4.20 - 5.40 10 6/uLTBHTBH HGB11.2(L)12.0 - 16.0 g/dLTBHTBH HCT33.9(L)36.0 - 48.0 %TBHTBH MCV84.881.0 - 99.0 fLTBHTBH MCH28.0 26.7 - 34.0 pgTBHTBH MCHC33.029.9 - 35.2 g/dLTBHTBH RDW13.211.0 - 15.0 %TBHTBH HBW888296 - 450 10 3/uLTBHTBH MPV9.99.5 - 13.5 fLTBHNEUTROPHILS PERCENT AUTO 74.443.0 - 75.0 %TBHLYMPHOCYTES PERCENT AUTO18.5(L)20.5 - 60.0 %TBHMONOCYTES PERCENT AUTO5.61.7 - 12.0 %TBHTBH EO %0.4(L)0.9 - 7.0 %TBHBASOPHILS PERCENT AUTO0.1(L)0.2 - 2.0 %TBHIMMATURE GRANULOCYTES PCT AUTO1.0(H)0.0 - 0.5 %TBH NEUTROPHILS ABSOLUTE AUTO6.9(H)1.4 - 6.5 10 3/uLTBHLYMPHOCYTES ABSOLUTE AUTO 1.71.2 - 3.8 10 3/uLTBHMONOCYTES ABSOLUTE AUTO0.50.3 - 0.8 10 3/uLTBHTBH EO # 0.00.0 - 0.7 10 3/uLTBHBASOPHILS ABSOLUTE AUTO0.00.0 - 0.1 10 3/uLTBHIMMATURE GRANULOCYTES ABS AUTO0.09(H)0.00 - 0.03 10 3/uLTBHSpecimen (Source)Anatomical Location / LateralityCollection Method / VolumeCollection TimeReceived Time 07/18/2025 8:33 AM EDT07/18/2025 8:34 AM EDT Narrative CLINISYNC - 07/18/2025 9:03 AM EDT Authorizing ProviderResult TypeResult StatusCorey Servando DOCLINISYNCFinal Result Performing OrganizationAddressCity/State/ZIP CodePhone Number [facility] * (ABNORMAL) RECURRENT VAGINITIS (HTRX) (07/04/2025 4:16 PM EDT)ComponentValue Ref RangeTest MethodAnalysis TimePerformed AtPathologist SignatureATOPOBIUM EXQFISX58.164(A)19.961 - 24.689 ppm07/06/2025 5:46 AM EDTHealthTrackRx at [facility] VAGINAEDetected(A)19.961 - 24.689 ppm07/06/2025 5:46 AM EDT [facility] 2,3 (BACTERIAL VAGINOSIS ASSOCIATED BACTERIA 2, 3); MOBILUNCUS MNS688.961 - 24.689 ppm07/06/2025 5:46 AM EDTHealthTrackRx at [facility] 2,3 (BACTERIAL VAGINOSIS ASSOCIATED BACTERIA 2, 3); MOBILUNCUS SPP Not Hcumflgb89.961 - 24.689 ppm07/06/2025 5:46 AM EDTHealthTrackRx at [facility] IGOR ALBICANS, PARAPSILOSIS, FQBBNDDVEP080.000 - 30.347 ppm07/06/2025 5:46 AM EDTHealthTrackRx at LabPortCANDIDA ALBICANS, PARAPSILOSIS, TROPICALISNot Lqhjtelt27.000 - 30.347 ppm07/06/2025 5:46 AM EDTHealthTrackRx at [facility] IGOR UUZRKWGM841.000 - 31.618 ppm07/06/2025 5:46 AM EDTHealthTrackRx at LabPortCANDIDA GLABRATANot Chujhntf89.000 - 31.618 ppm07/06/2025 5:46 AM EDT [facility] ZXEIXZ937.000 - 30.873 ppm07/06/2025 5:46 AM EDTHealthTrackRx at LabPortCANDIDA KRUSEINot Cwqxunsk59.000 - 30.873 ppm 07/06/2025 5:46 AM EDTHealthTrackRx at LabPortCHLAMYDIA RLHAEOXEZYH128.000 - 31.586 ppm07/06/2025 5:46 AM EDTHealthTrackRx at LabPortCHLAMYDIA TRACHOMATIS Not Gmoxxlqy83.000 - 31.586 ppm07/06/2025 5:46 AM EDTHealthTrackRx at [facility] GARDNERELLA IFTXKNMEJ99.73(A)19.961 - 24.689 ppm07/06/2025 5:46 AM EDT [facility] HospitalGARDNERELLA VAGINALISDetected(A)19.961 - 24.689 ppm 07/06/2025 5:46 AM EDTHealthTrackRx at LabPortMEGASPHAERA (TYPES 1, 2)14.97(A) 19.961 - 24.689 ppm07/06/2025 5:46 AM EDTHealthTrackRx at LabPortMEGASPHAERA (TYPES 1, 2)Detected(A)19.961 - 24.689 ppm07/06/2025 5:46 AM EDTHealthTrackRx at [facility] HospitalNEISSERIA OOQLPJRMNTW466.000 - 32.587 ppm07/06/2025 5:46 AM EDT [facility] HospitalNEISSERIA GONORRHOEAENot Aonsucbc12.000 - 32.587 ppm 07/06/2025 5:46 AM EDTHealthTrackRx at [facility] HospitalTRICHOMONAS UOCZKMHGX134.000 - 31.995 ppm07/06/2025 5:46 AM EDTHealthTrackRx at [facility] HospitalTRICHOMONAS VAGINALIS Not Ntulbmmg54.000 - 31.995 ppm07/06/2025 5:46 AM EDTHealth[facility] at [facility] MYCOPLASMA GVLAVZWRDI238.961 - 24.689 ppm07/06/2025 5:46 AM EDTHealthTrackRx at [facility] HospitalMYCOPLASMA GENITALIUMNot Rshruazj64.961 - 24.689 ppm07/06/2025 5:46 AM EDTHealthTrackRx at [facility], C; MEFA23.066(A)23.000 - 27.500 ppm 07/06/2025 5:46 AM EDTHealthTrackRx at [facility], C; MEFADetected(A)23.000 - 27.500 ppm07/06/2025 5:46 AM EDTHealthTrackRx at [facility] HospitalTE B, TET M24.724(A) 23.000 - 27.500 ppm07/06/2025 5:46 AM EDTHealthTrackRx at [facility] B, TET M Detected(A)23.000 - 27.500 ppm07/06/2025 5:46 AM EDTHealthTrackRx at [facility] Specimen (Source)Anatomical Location / LateralityCollection Method / Volume Collection TimeReceived WnyeVlifor97/27/2025 4:16 PM EDT07/06/2025 1:15 AM EDT Narrative Authorizing ProviderResult TypeResult StatusCorey Servando DOLAB BLOOD ORDERABLES Final ResultPerforming OrganizationAddressCity/State/ZIP CodePhone Number [facility] [address] [address] * IGP,APTIMA HPV,AGE GDLN (07/04/2025 2:52 PM EDT)ComponentValueRef RangeTest MethodAnalysis TimePerformed AtPathologist SignatureAGE GDLN ACOG TESTINGNote. TBHComment: ?? TESTS ? RESULT ??FLAG ??UNITS ?REF RANGE ??LAB ?? Clinician Provided Cytology Information ?? Source.............Vagina ?? Other.............. ?? No. of containers..01 ThinPrep Vial Age Algo ACOG Sherice... ??-28 ? 01 ?FLAG LEGEND: ?L-Low Normal,H-High Normal,LL-Alert Low,HH-Alert High <-Panic Low,>-Panic High,A-Abnormal,AA-Critical Abnormal Performed at: 01 =G ?[facility] ?? [address] [place] ??[address] ?? Gabi Graves MD, IGP, RFX APTIMA HPV ASCUNote.TBHComment: ?? TESTS ? RESULT ??FLAG ??UNITS ?REF RANGE ??LAB DIAGNOSIS: ?02 ?? NEGATIVE FOR INTRAEPITHELIAL LESION OR MALIGNANCY. Specimen adequacy: ?02 ?? Satisfactory for evaluation. ??No endocervical component is identified. ?? An endocervical component is not commonly seen in the patient. Performed by: ? 02 ?? Josefina Piper, Pick Pack Worker (ASCP) . ? 02 Note: ? Note ?02 ?? The Pap smear is a screening test designed to aid in the ?? detection of premalignant and malignant conditions of the ?? uterine cervix. ??It is not a diagnostic procedure and ?? should not be used as the sole means of detecting cervical ?? cancer. ??Both false-positive and false-negative reports do ?? occur. Test Methodology: ? Note ?02 ?? This liquid based ThinPrep(R) pap test was screened with ?? the use of an image guided system. . ? 02 ?? The HPV DNA reflex criteria were not met with this specimen ?? result therefore, no HPV testing was performed. ?FLAG LEGEND: ?L-Low Normal,H-High Normal,LL-Alert Low,HH-Alert High <-Panic Low,>-Panic High,A-Abnormal,AA-Critical Abnormal Performed at: 02 WB ?[facility] ?? [address] [place], [place] ??[address] ?? Gabi Graves MD, Performed at: ??=G - [facility] [address] ??[id number] Continuous Still Operator: Gabi Graves MD, Phone: ??[phone] Performed at: ??WB - [facility] [address] ??[id number] Continuous Still Operator: Gabi Graves MD, Phone: ??[phone] Specimen (Source)Anatomical Location / LateralityCollection Method / Volume Collection TimeReceived Time07/04/2025 2:52 PM EDT07/04/2025 8:20 PM EDT Narrative CLINISYNC - 07/11/2025 10:08 AM EDT SPATULA-ALONE VAGINA Authorizing ProviderResult TypeResult StatusCorey Servando DOLAB BLOOD ORDERABLES Final ResultPerforming OrganizationAddressCity/State/[facility] HospitalPhone Number [facility] * Pap Smear (07/04/2025 12:00 AM EDT)Specimen (Source)Anatomical Location / LateralityCollection Method / VolumeCollection TimeReceived TimeSwabCervical swab / Unknown Narrative Authorizing ProviderResult TypeResult StatusCorey Servando DOLAB CYTOLOGY ORDERABLESFinal ResultPerforming OrganizationAddressCity/State/ZIP CodePhone Number EXTERNAL LAB from Last 3 Months Insurance Care Teams Team MemberRelationshipSpecialtyStart DateEnd Date Mc Ray MD [address] [place] [address] PCP - GeneralFamily Medicine05/27/23
--- OUTSIDE RECORDS SUMMARY | 2025-09-27 15:57 | XMS_ITS | CCD ---
Author Organization [facility] Care Team Providers Care Curb Setter Name Role Phone Cleveland RAY Primary Care Physician [phone] Danika RUTLEDGE Unavailable Cleveland Ray MD Primary Care Provider [phone] Cleveland RAY Attending Unavailable AURELIO, Cleveland Santo Attending Unavailable Cleveland RAY Attending Unavailable AURELIO, Cleveland Santo Attending Unavailable AURELIO, Cleveland Santo Attending Unavailable Cleveland Ray MD Primary Care Provider JESSIE AL Attending Unavailable SERVANDO, JESSIE Attending Unavailable NIYAH, GABBY Attending Unavailable SERVANDO, JESSIE Attending Unavailable SERVANDO, JESSIE Attending Unavailable NIYAH, GABBY Attending Unavailable MANASAKRISTY KENT Attending Unavailable NIYAH, GABBY Attending Unavailable NIYAH, GABBY Attending Unavailable Allergies Allergy ClassificationReported Allergen(s)Allergy TypeDate of OnsetReaction(s) Facility (1 source)Amoxicillin; Translations: [amoxicillin[facility] ([facility] source)Clindamycin; Translations: [clindamycin][facility] (1 source)Penicillins; Translations: [penicillins]Propensity to adverse reactions (disorder)[facility] Repository (1 source)No Known Medication Allergies; Translations: [No Known Medication Allergies]Propensity to adverse reactions (disorder)[facility] Rep[facility] Medications Current Medications MedicationDrug Class(es)DatesSig (Normalized)Sig (Original)etonogestrel 68 mg drug implant (16 sources)ProgestinStart: 79-64-1335pakdvu 1 mg by subcutaneous injection once Nexplanon 68 mg subcutaneous implant mg EA, SubCutaneous, Once, Refills(s) 0 Start Date: 05/04/20 Status: Ordered End: 82-55-1765vjbuzfvpxibe-eluting (Nexplanon) 68 mg contraceptive implant 1 each by Implant route 1 (one) time 11/20/2024 Discontinued (Other) nitrofurantoin, macrocrystals 25 mg / nitrofurantoin, monohydrate 75 mg oral capsule (3 sources)Nitrofuran AntibacterialStart: 04-05-2025 End: 27-67-0650yjbx 1 capsule by mouth in the morningnitrofurantoin, macrocrystal-monohydrate, (Macrobid) 100 MG capsule Indications: Urinary tract infection with hematuria, site unspecified Take 1 capsule (100 mg) by mouth in the morning and 1 capsule(100 mg) before bedtime. Do all this for 7 days. 14 capsule 04/05/2025 04/12/2025 Activephentermine hydrochloride 37.5 mg oral tablet (14 sources)Sympathomimetic Amine AnorecticStart: 12-94-6511vgks 1 tablet by mouth once dailyAdipex-P 37.5 mg Tab 37.5 mg = 1 tab(s), Oral, Daily, # 30 tab(s), Refills(s) 0, Pharmacy: [facility]#[id number], 173, cm, 03/30/24 8:25:00 EDT, Height/Length Dosing, 91.2, kg, 03/30/24 8:25:00 EDT, WeightDosing Start Date: 03/30/24 Status: OrderedStart: 33-60-6509aycm 1 tablet by mouth once dailyAdipex- P 37.5 mg Tab 37.5 mg = 1 tab(s), Oral, Daily, # 30 tab(s), Refills(s) 0, Pharmacy: [facility]#[id number], 173, cm, 03/06/24 8:02:00 EDT, Height/Length Dosing, 91.7, kg, 03/06/24 8:02:00 EDT, WeightDosing Start Date: 03/06/24 Status: Ordered Start: 29-49-1530dzhb 1 tablet by mouth once dailyAdipex-P 37.5 mg Tab 37.5 mg = 1 tab(s), Oral, Daily, # 30 tab(s), Refills(s) 0, Pharmacy: [facility]#[id number], 173, cm, 02/03/24 8:01:00 EDT, Height/Length Dosing, 93, kg, 02/03/24 8:01:00 EDT, Weight Dosing Start Date: 02/03/24 Status: OrderedStart: 01-22-2023 End: 39-83-7337gsbq 1 tablet by mouth once dailyAdipex-P 37.5 mg Tab 37.5 mg = 1 tab(s), Oral, Daily, # 30 tab(s), Refills(s) 0, Pharmacy: [email or web address][id number], 173, cm, 01/06/24 8:32:00 EST, Height/Length Dosing, 93, kg, 01/06/24 8:32:00 EST, Weight Dosing Start Date: 01/06/24 Status: Ordered Problems Active Problems Problem ClassificationProblemDateDocumented DateEpisodic/ChronicContraceptive and procreative management (1 source)Subcutaneous contraceptive implant present; Translations: [Encounter for surveillance of implantable subdermal contraceptive]07-34-4843Hizbgbuq Immunizations and screening for infectious disease (2 sources)Exposure to sexually transmissible disorder; Translations: [Contact with and (suspected) exposure to infections with a predominantly sexual mode of transmission]86-71-0326IppbukgiIulwcltsa disorders (1 source)Missed period; Translations: [Irregular menstruation, unspecified] 79-08-3913RnpdsfqQqbqm and unspecified benign neoplasm (3 sources)Melanocytic nevus of face; Translations: [Melanocytic nevi of unspecified part of face]Onset: 98-59-0369LfzmphiuJlrtf and unspecified benign neoplasm (4 sources)Benign neoplasm of skin of gzwn89-80-1681YhkqneouWhsho circulatory disease (6 sources)Non-neoplastic itmyn00-60-0824CjwjyuctXgmmd complications of (2 sources) size does not accord with dates; Translations: [Uterine size- date discrepancy, unspecified trimester]11-50-7808AkldtlxxSkrml congenital anomalies (6 sources)Non-neoplastic nevus; Translations: [Congenital non-neoplastic nevus] Onset: 32-45-0806KzrscqiRkteg female genital disorders (2 sources)Vaginal discharge; Translations: [Other specified noninflammatory disorders of vagina]15-11-2754IfvcddrsEmnsx nutritional; endocrine; and metabolic disorders (20 sources)Obesity; Translations: [Other obesity]Onset: 68-76-6864BjrhijoCsdwk nutritional; endocrine; and metabolic disorders (13 sources)Obese class I; Translations: [Body mass index (BMI) 33.0-33.9, adult]Onset: 22-33-2383HxnzabuPydbk nutritional; endocrine; and metabolic disorders (1 source)Overweight in adulthood with body mass index of 25 or more but less than 30; Translations: [Body mass index (BMI) 29.0-29.9, adult]Onset: 05-03-2023 EpisodicOther nutritional; endocrine; and metabolic disorders (1 source)Overweight; Translations: [Overweight]Onset: 79-57-3508OidkyscnKgjns and delivery including normal (18 sources); Translations: [Encounter for supervision of normal , unspecified, unspecified trimester]29-58-7357QfmydibhHrnts screening for suspected conditions (not mental disorders or infectious disease) (7 sources)Patient encounter status; Translations: [Unsatisfactory cytologic smear of cervix]09-24-6997JvjgdcfgXatmq upper respiratory infections (2 sources)Acute upper respiratory infection; Translations: [Acute upper respiratory infection, unspecified]Onset: 17-68-6929GkhosupeFirfhelw codes; unclassified (2 sources)Gestation period, 16 weeks; Translations: [16 weeks gestation of ]48-28-2034LopjqibrNcfznzza codes; unclassified (2 sources)Gestation period, 20 weeks; Translations: [20 weeks gestation of ]04-91-6400FttpppdwNgrbtjoy codes; unclassified (2 sources)Gestation period, 24 weeks; Translations: [24 weeks gestation of ]19-86-9808JudmuhwhLrqbnoio codes; unclassified (2 sources)Gestation period, 28 weeks; Translations: [28 weeks gestation of ]14-17-8453TttdciqgOinfaxaw codes; unclassified (2 sources)Gestation period, 30 weeks; Translations: [30 weeks gestation of ]67-67-4781ScdcmofsXrcdrlep codes; unclassified (2 sources)Gestation period, 32 weeks; Translations: [32 weeks gestation of ]41-44-6535SqrqigkqAojqpfbl codes; unclassified (2 sources)Gestation period, 34 weeks; Translations: [34 weeks gestation of ]01-46-7961Vkvdqsxs Past or Other Problems Problem ClassificationProblemDateDocumented DateEpisodic/ChronicUnclassified (12 sources)Patient encounter aekvme91-01-1234 Results Test NameValueInterpretationReference RangeFacilityUrinalysis macro (dipstick) panel (U)on 31-67-6589Zzteodtfg, UANegativeNegative - 4(70) +++ mg/dLNOMS HealthcareBlood, UANegativeNegative - 50 Ming/mcLNOMS HealthcareClarity, UAClear NOMS HealthcareColor, UAYellowNOMS HealthcareGlucose, UANegativeNegative - 1999(110) ++++ mg/dLNOMS HealthcareInterpretation and review of laboratory resultsNormalNOMS HealthcareKetones, UANegativeNegative - 160(16) ++++ mg/dLNOMS HealthcareLeukocytes, UANegativeNegative - 500+++ Manpreet/mcLNOMS HealthcareNitrite, UANegativeNegative - PositiveNOMS HealthcarepH, UA6.05 - 9NOMS Healthcare Protein, UANegativeNegative - 1999(20) ++++ mg/dLNOMS HealthcareSpec Grav, UA 1.0251 - 1.03NOMS HealthcareUrobilinogen, UA0.20.2 - 12 mg/dLNOMS HealthcareNOMS HealthcareUrinalysis macro (dipstick) panel (U)on 10-58-5429Znyqupnfi, UA NegativeNegative - 4(70) +++ mg/dLNOMS HealthcareBlood, UANegativeNegative - 50 Ming/mcLNOMS HealthcareClarity, UAClearNOMS HealthcareColor, UAYellowNOMS HealthcareGlucose, UANegativeNegative - 1999(110) ++++ mg/dLNOMS Healthcare Interpretation and review of laboratory resultsAbnormalNOMS HealthcareKetones, UANegativeNegative - 160(16) ++++ mg/dLNOMS HealthcareLeukocytes, UANegative Negative - 500+++ Manpreet/mcLNOMS HealthcareNitrite, UANegativeNegative - Positive NOMS HealthcarepH, UA5.55 - 9NOMS HealthcareProtein, UATraceNegative - 2000(20) ++++ mg/dLNOMS HealthcareSpec Grav, UA1.0301 - 1.03NOMS HealthcareUrobilinogen, UA2.00.2 - 12 mg/dLNOMS HealthcareNOMS HealthcareUS OB GROWTHon 61-63-9792[place] [address] Ultrasound Report Signed Patient: ALEJO OVERTON MR#: [id number] : 2000 Acct:[id number] Age/Sex: 24 / F ADM Date: 08/14/25 Loc: US Attending Dr: Kristy Goel Ordering Physician: Kristy Goel Date of Service: 08/14/25 Procedure(s): US OB growth Accession Number(s): [id number] cc: Kristy Goel; Physician,Non-Staff M.D. The [place] [address] Patient Name: ALEJO OVERTON MRN: [id number] date: 2000 Sex: F Assigned Patient Location: US Current Patient Location: Accession/Order Number: [id number] Exam Date: 08/14/2025 19:06 Report Date: 08/15/2025 07:51 At the request of: KRISTY GOEL Procedure: US OB growth ULTRASOUND OB GROWTH COMPARISON: 06/12/2025 and 06/04/2025 CLINICAL DATA: size inconsistent with dates There is a single live intrauterine gestation in cephalic presentation. There is cardiac and somatic activity with heart rate of 141 beats per minutes. The imaged placenta is anterior. The amniotic fluid index measures 16.52 cm. This is in upper normal range. The following measurements were obtained: Biparietal diameter 7.6 cm 30 weeks 4 days 51% Head circumference 28.7 cm 31 weeks 3 days 54% Abdominal circumference 26.9 cm 31 weeks 0 days 70% Femur length 6.0 cm 31 weeks 1 day 65% The composite ultrasound age based these measurements is 31 weeks 0 days +/- 2 weeks 1 day. The estimated date of delivery is October 16, 2025. The estimated weight is 3 lbs. 12 oz. +/- ounces (70%). US/US OB growth IMPRESSION: SINGLE LIVE INTRAUTERINE GESTATION WITH TODAY'S ULTRASOUND AGE OF 31 WEEKS 0 DAYS. Impression dictated by: Yesenia Rios M.D. 08/15/2025 7:51 AM Dictation Location: [place] [address] Electronically authenticated by: [id number] Y Date: 08/15/2025 07:51 Dictated By: Yesenia Rios M.D. Signed By: 08/15/25 0754 DD/ 075 TD/TT: Assistant Professor Of Economics:MONAHRadiology, Radiologist, - 08/15/2025 [place] [address] Ultrasound Report Signed Patient: ALEJO OVERTON MR#: [id number] : 2000 Acct:[id number] Age/Sex: 24 / F ADM Date: 08/14/25 Loc: US Attending Dr: Kristy Goel Ordering Physician: Kristy Goel Date of Service: 08/14/25 Procedure(s): US OB growth Accession Number(s): [id number] cc: Kristy Goel; Physician,Non-Staff Barbara [facility] [place] [address] Patient Name: ALEJO OVERTON MRN: [id number] date: 2000 Sex: F Assigned Patient Location: US Current Patient Location: Accession/Order Number: [id number] Exam Date: 08/14/2025 19:06 Report Date: 08/15/2025 07:51 At the request of: KRISTY GOEL Procedure: US OB growth ULTRASOUND OB GROWTH COMPARISON: 06/12/2025 and 06/04/2025 CLINICAL DATA: size inconsistent with dates There is a single live intrauterine gestation in cephalic presentation. There is cardiac and somatic activity with heart rate of 141 beats per minutes. The imaged placenta is anterior. The amniotic fluid index measures 16.52 cm. This is in upper normal range. The following measurements were obtained: Biparietal diameter 7.6 cm 30 weeks 4 days 51% Head circumference 28.7 cm 31 weeks 3 days 54% Abdominal circumference 26.9 cm 31 weeks 0 days 70% Femur length 6.0 cm 31 weeks 1 day 65% The composite ultrasound age based these measurements is 31 weeks 0 days +/- 2 weeks 1 day. The estimated date of delivery is October 16, 2025. The estimated weight is 3 lbs. 12 oz. +/- ounces (70%). US/US OB growth IMPRESSION: SINGLE LIVE INTRAUTERINE GESTATION WITH TODAY'S ULTRASOUND AGE OF 31 WEEKS 0 DAYS. Impression dictated by: Yesenia Rios M.D. 08/15/2025 7:51 AM Dictation Location: [place] [address] Electronically authenticated by: [id number] Y Date: 08/15/2025 07:51 Dictated By: Yesenia Rios M.D. Signed By: 08/15/25 0754 DD/ 0751 TD/TT: Assistant Professor Of Economics: ALEX HealthcareRadiology Study observation (narrative)[facility] HealthcareUS OB GROWTHOrdered By: Radiologist Radiology on 79-10-9626[facility]GLEllett [facility] Work Phone: Urinalysis macro (dipstick) panel (U)on 08-15-2025 Bilirubin, UANegativeNegative - 4(70) +++ mg/dLNOMS HealthcareBlood, UANegative Negative - 50 Ming/mcLNOMS HealthcareClarity, UAClearNOMS HealthcareColor, UA YellowNOMS HealthcareGlucose, UANegativeNegative - 1999(110) ++++ mg/dLNOMS HealthcareInterpretation and review of laboratory resultsAbnormalNOMS Healthcare Ketones, UANegativeNegative - 160(16) ++++ mg/dLNOMS HealthcareLeukocytes, UA2+ Negative - 500+++ Manpreet/mcLNOMS HealthcareNitrite, UANegativeNegative - Positive NOMS HealthcarepH, UA6.55 - 9NOMS HealthcareProtein, UANegativeNegative - 1999(20) ++++ mg/dLNOMS HealthcareSpec Grav, UA1.011 - 1.03NOMS Healthcare Urobilinogen, UA2.00.2 - 12 mg/dLNOSaint Luke's Health SystemNOID HealthcareUrinalysis macro (dipstick) panel (U)on 66-83-7908Ojrxnbfmt, UANegativeNegative - 4(70) +++ mg/dL NOMS HealthcareBlood, UANegativeNegative - 50 Ming/mcLNOMS HealthcareClarity, UA ClearNOMS HealthcareColor, UAYellowNOMS HealthcareGlucose, UANegativeNegative - 2000(110) ++++ mg/dLNOID HealthcareInterpretation and review of laboratory resultsNormalNOMS HealthcareKetones, UANegativeNegative - 160(16) ++++ mg/dLNOMS HealthcareLeukocytes, UANegativeNegative - 500+++ Manpreet/mcLNOMS HealthcareNitrite, UANegativeNegative - PositiveNOMS HealthcarepH, UA65 - 9NOMS HealthcareProtein, UANegativeNegative - 2000(20) ++++ mg/dLNOID HealthcareSpec Grav, UA1.0151 - 1.03NOID HealthcareUrobilinogen, UA0.20.2 - 12 mg/dLSaint John's Hospital HealthcareGLUCOSE 1 HOURon 20-76-5279Ipwrtkb [Mass/Vol]122 mg/dLNINF - 130 mg/dL [facility] HealthcareCLINISYNCNOMS HealthcareIGP,APTIMA HPV,AGE GDLNon 22-55-6511HWG GDLN ACOG TESTINGNote.[facility] HealthcareComment on above:TESTS RESULT FLAG UNITS REF RANGE LAB Clinician Provided Cytology Information Source.............Vagina Other.............. No. of containers..01 ThinPrep Vial Age Algo ACOG Sherice... -[age] FLAG LEGEND: L-Low Normal,H-High Normal,LL-Alert Low,HH-Alert High <-Panic Low,>-Panic High,A-Abnormal,AA-Critical Abnormal Performed at: 01 =G [facility] [address] [place] [address] Gabi Graves MD, IGP, RFX APTIMA HPV ASCUNote.[facility] HealthcareComment on above:TESTS RESULT FLAG UNITS REF RANGE LAB DIAGNOSIS: 02 NEGATIVE FOR INTRAEPITHELIAL LESION OR MALIGNANCY. Specimen adequacy: 02 Satisfactory for evaluation. No endocervical component is identified. An endocervical component is not commonly seen in the patient. Performed by: Pablo Piper, Frozen Foods Manager ([facility]) . 02 Note: Note 02 The Pap [...] <-Panic Low,>-Panic High,A-Abnormal,AA-Critical Abnormal Performed at: [address] [address] Gabi Graves MD, Performed at: =[facility] [id number] Bakelite Molder: Gabi Graves MD, Phone: [phone] Performed at: [address] [id number] Bakelite Molder: Gabi Graves MD, Phone: [phone] SPATULA-ALONE VAGINA CLINISYNCNOMS HealthcareRECURRENT VAGINITIS (HTRX)on 49-14-2516NHQNBMJIN VAGINAE 19.164AbnormalNOMS HealthcareATOPOBIUM VAGINAEDetectedAbnormalNOMS Healthcare BVAB 2,3 (BACTERIAL VAGINOSIS ASSOCIATED BACTERIA 2, 3); MOBILUNCUS MAM5RLWW HealthcareBVAB 2,3 (BACTERIAL VAGINOSIS ASSOCIATED BACTERIA 2, 3); MOBILUNCUS SPPNot detectedNOMS HealthcareCANDIDA ALBICANS, PARAPSILOSIS, STAIKEOBPF9CPFZ HealthcareCANDIDA ALBICANS, PARAPSILOSIS, TROPICALISNot detectedNOMS Healthcare IGOR YXHGPNDP0FDWO HealthcareCANDIDA GLABRATANot detectedNOMS Healthcare IGOR QIKQAY7GBEA HealthcareCANDIDA KRUSEINot detectedNOMS HealthcareCHLAMYDIA RYSMAWTJFSF1ZQIP HealthcareCHLAMYDIA TRACHOMATISNot detectedNOMS Healthcare ERMB, C; MEFA23.066AbnormalNOMS HealthcareERMB, C; MEFADetectedAbnormalNOMS HealthcareGARDNERELLA DTCGYAZUZ70.73AbnormalNOMS HealthcareGARDNERELLA VAGINALIS DetectedAbnormalNOMS HealthcareInterpretation and review of laboratory results AbnormalNOMS HealthcareMEGASPHAERA (TYPES 1, 2)14.97AbnormalNOMS Healthcare MEGASPHAERA (TYPES 1, 2)DetectedAbnormalNOMS HealthcareMYCOPLASMA GENITALIUM0 NOMS HealthcareMYCOPLASMA GENITALIUMNot detectedNOMS HealthcareNEISSERIA STKUKLNIBGI7ANYO HealthcareNEISSERIA GONORRHOEAENot detectedNOMS HealthcareTET B, TET M24.724AbnormalNOMS HealthcareTET B, TET MDetectedAbnormalNOMS Healthcare TRICHOMONAS VHSRULJRW6HFWA HealthcareTRICHOMONAS VAGINALISNot detectedNOMS HealthcareNOMS HealthcareUrinalysis macro (dipstick) panel (U)on 07-04-2025 Bilirubin, UANegativeNegative - 4(70) +++ mg/dLNOMS HealthcareBlood, UANegative Negative - 50 Ming/mcLNOMS HealthcareClarity, UAClearNOMS HealthcareColor, UA YellowNOMS HealthcareGlucose, UANegativeNegative - 2000(110) ++++ mg/dLNOMS HealthcareInterpretation and review of laboratory resultsAbnormalNOMS Healthcare Ketones, UANegativeNegative - 160(16) ++++ mg/dLNOMS HealthcareLeukocytes, UA PositiveNegative - 500+++ Manpreet/mcLNOMS HealthcareNitrite, UANegativeNegative - PositiveNOMS HealthcarepH, UA65 - 9NOMS HealthcareProtein, UANegativeNegative - 2000(20) ++++ mg/dLNOMS HealthcareSpec Grav, UA1.0151 - 1.03N[facility]S Healthcare Urobilinogen, UA1.00.2 - 12 mg/dLNOMS HealthcareNOMS HealthcareUS OB INCOMPLETE ANATOMYon 78-39-7007Q[address] [address] Ultrasound Report Signed Patient: ALEJO OVERTON MR#: [id number] : 2000 Acct:[id number] Age/Sex: 24 / F ADM Date: 06/12/25 Loc: US Attending Dr: Jessie Al D.O. Ordering Physician: Jessie Al D.O. Date of Service: 06/12/25 Procedure(s): US OB incomplete anatomy Accession Number(s): [id number] cc: Jessie Al D.O.; Physician,Non-Staff M.[place]ola [place] [address] Patient Name: ALEJO OVERTON MRN: [id number] date: 2000 Sex: F Assigned Patient Location: US Current Patient Location: Accession/Order Number: [id number] Exam Date: 06/13/2025 09:05 Report Date: 06/13/2025 [...] Jr., D.O. 06/13/2025 9:20 AM Dictation Location: [place] [address] Electronically authenticated by: [id number] Y Date: 06/13/2025 09:20 Dictated By: Juan Francisco Abel M.D. Signed By: 06/13/25922 DD/ 9 TD/TT: Assistant Professor Of Economics:MONAHRadiology, Radiologist, - 06/13/2025 [place] [address] Ultrasound Report Signed Patient: ALEJO OVERTON MR#: [id number] : 2000 Acct:[id number] Age/Sex: 24 / F ADM Date: 06/12/25 Loc: US Attending Dr: Jessie Al D.O. Ordering Physician: Jessie Al D.O. Date of Service: 06/12/25 Procedure(s): US OB incomplete anatomy Accession Number(s): [id number] cc: Jessie Al D.O.; Physician,Non-Staff Barbara [facility] [place] [id number] Patient Name: ALEJO OVERTON MRN: [id number] date: 2000 Sex: F Assigned Patient Location: US Current Patient Location: Accession/Order Number: [id number] Exam Date: 06/13/2025 09:05 Report Date: 06/13/2025 [...] Jr., D.O. 06/13/2025 9:20 AM Dictation Location: [place] [address] Electronically authenticated by: [id number] Y Date: 06/13/2025 09:20 Dictated By: Juan Francisco Abel M.D. Signed By: 06/13/25922 DD/ 9 TD/TT: Assistant Professor Of Economics: ALEX SaraviaRadiology Study observation (narrative)NOMS HealthcareUS OB INCOMPLETE ANATOMYOrdered By: Radiologist Radiology on 41-49-0514[facility] Work Phone: no Panel InformationOrdered By: Radiologist Radiology on 48-65-6481[facility] Healthcare Work Phone: no Panel Informationon 16-37-4986Guiuquusg Study observation (narrative)NOMS HealthcareUS OB ANATOMYon 84-83-7376J[address] [address] Ultrasound Report Signed Patient: ALEJO OVERTON MR#: [id number] : 2000 Acct:[id number] Age/Sex: 24 / F ADM Date: 06/04/25 Loc: US Attending Dr: Jessie Al D.O. Ordering Physician: Jessie Al D.O. Date of Service: 06/04/25 Procedure(s): US OB anatomy Accession Number(s): [id number] cc: Jessie Al D.O.; [place] RAY [place] [id number] Patient Name: ALEJO OVERTON MRN: [id number] date: 2000 Sex: F Assigned Patient Location: US Current Patient Location: US Accession/Order Number: [id number] Exam Date: 06/04/2025 21:13 Report Date: 06/04/2025 [...] Jr., D.O. 06/04/2025 9:22 PM Dictation Location: [place] [address] Electronically authenticated by: [id number] Y Date: 06/04/2025 21:22 Dictated By: Juan Francisco Abel M.D. Signed By: 06/04/252124 DD/ 21 TD/TT: Assistant Professor Of Economics:KAYLEENadiology, Radiologist, - 06/04/2025 [place] [address] Ultrasound Report Signed Patient: ALEJO OVERTON MR#: [id number] : 2000 Acct:[id number] Age/Sex: 24 / F ADM Date: 06/04/25 Loc: US Attending Dr: Jessie Al D.O. Ordering Physician: Jessie Al D.O. Date of Service: 06/04/25 Procedure(s): US OB anatomy Accession Number(s): [id number] cc: Jessie lA D.O.; C[place]LEAND RAY [address] [address] Patient Name: ALEJO OVERTON MRN: [id number] date: 2000 Sex: F Assigned Patient Location: US Current Patient Location: US Accession/Order Number: [id number] Exam Date: 06/04/2025 21:13 Report Date: 06/04/2025 [...] Jr., D.O. 06/04/2025 9:22 PM Dictation Location: [place] [address] Electronically authenticated by: [id number] Y Date: 06/04/2025 21:22 Dictated By: Juan Francisco Abel M.D. Signed By: 06/04/252124 DD/ 21 TD/TT: Assistant Professor Of Economics: ALEX Redd OB CERVICAL LENGTHon 79-81-0321[place]ob[place], [place] [address] Ultrasound Report Signed Patient: ALEJO OVERTON MR#: [id number] : 2000 Acct:[id number] Age/Sex: 24 / F ADM Date: 06/04/25 Loc: US Attending Dr: Jessie Al D.O. Ordering Physician: Jessie Al D.O. Date of Service: 06/04/25 Procedure(s): US OB cervical length Accession Number(s): [id number] cc: Jessie Al D.O.; [place] R[place] [address] [address] Patient Name: ALEJO OVERTON MRN: [id number] date: 2000 Sex: F Assigned Patient Location: Current Patient Location: US Accession/Order Number: [id number] Exam Date: 06/04/2025 21:13 Report Date: 06/04/2025 [...] Jr., D.O. 06/04/2025 9:22 PM Dictation Location: [place] [address] Electronically authenticated by: [id number] Y Date: 06/04/2025 21:22 Dictated By: Juan Francisco Abel M.D. Signed By: 06/04/252124 DD/ 21 TD/TT: Assistant Professor Of Economics:MONAHRadiology, Radiologist, - 06/04/2025 [place] [address] Ultrasound Report Signed Patient: ALEJO OVERTON MR#: [id number] : 2000 Acct:[id number] Age/Sex: 24 / F ADM Date: 06/04/25 Loc: US Attending Dr: Jessie Al D.O. Ordering Physician: Jessie Al D.O. Date of Service: 06/04/25 Procedure(s): US OB cervical length Accession Number(s): [id number] cc: Jessie Al D.O.; [place] [id number] Patient Name: ALEJO OVERTON MRN: [id number] date: 2000 Sex: F Assigned Patient Location: US Current Patient Location: US Accession/Order Number: [id number] Exam Date: 06/04/2025 21:13 Report Date: 06/04/2025 [...] Jr., D.O. 06/04/2025 9:22 PM Dictation Location: [place] [address] Electronically authenticated by: [id number] Y Date: 06/04/2025 21:22 Dictated By: Juan Francisco Abel M.D. Signed By: 06/04/252124 DD/ 21 TD/TT: Assistant Professor Of Economics: ALEX SaraviaAFP, SERUM, OPEN SPINA BIFIDAon 95-68-9850BOK MOM0.73.[facility] HealthcareAFP VALUE24.9 ng/mL.[facility] HealthcareCOMMENT:Comment.[facility] Comment on above:Blanca Martinez, Ph.D., [facility] Director References: Available Upon Request. Multiples Of Median Cutoffs For AFP Elevations Carty 2.5 Black 2.8 IDD 2.0 Twins 4.5 Abbreviation Definitions IDD - Insulin Dep Diabetes OSBR - Open Spina Bifida Risk For further inquiries contact [employer] [facility] at [phone]. This test was developed and its performance characteristics determined by [employer]. It has not been cleared or approved by the Food and Drug Administration. Performed at: [facility] [address] [place], [place] [id number] Bakelite Molder: Renae Bautista [facility], Phone: [phone] GEST. AGE ON COLLECTION DATE18.0. weeksNOMS HealthcareGESTAT. AGE BASED ON Ultrasound.[facility] HospitalComment on above:16.1 on 05/08/2025 Recalculations are not recommended when gestational dating by LMP and ultrasound are within 10 days. INSULIN DEP DIABETESNo.[facility] HospitalINTERPRETATIONComment.[facility] Comment on above:Interpretation: Screen Negative This result is screen negative [...] Customer Services to discuss available options. The [place] [employer] recommends amniocentesis be offered to women age 35 and older. MATERNAL AGE AT EDD26.1. yrNOID HealthcareMULTIPLE GESTATIONNo.[facility] OSBR RISK 1 [id number].[facility] Memorial HospitalRACECaucasian.[facility] HospitalRESULTSReport. [facility] HospitalTEST RESULTS:Negative.[facility] HospitalOfdetwglvbFSMEPN939. lbsNOMS HealthcarePREGNANCY N N ULTRASOUND [id number] 1 16 N 1 Y 223 N N N N N White/ CLINISYNCEllett Memorial HospitalUrinalysis macro (dipstick) panel (U)on 05-08-2025 Bilirubin, UANegativeNegative - 4(70) +++ mg/dLNOID HealthcareBlood, UANegative Negative - 50 Ming/mcLNOID HealthcareClarity, UAClearNOID HealthcareColor, UA YellowNOID HealthcareGlucose, UANegativeNegative - 2000(110) ++++ mg/dLHEBER VALLEY [facility] HealthcareInterpretation and review of laboratory resultsAbnormalEllett Memorial Hospital Ketones, UAPositiveNegative - 160(16) ++++ mg/dLEllett Memorial HospitalLeukocytes, UA TraceNegative - 500+++ Manpreet/mcLNOID HealthcareNitrite, UANegativeNegative - PositiveNOID HealthcarepH, UA6.55 - 9NOID HealthcareProtein, UANegativeNegative - 2000(20) ++++ mg/dLNOID HealthcareSpec Grav, UA1.0251 - 1.03NOSaint [facility]'s [facility] System Urobilinogen, UA1.00.2 - 12 mg/dLNOMS HealthcareNOMS HealthcareUrinalysis macro (dipstick) panel (U)on 86-71-5396Wgvvwxwel, UANegativeNegative - 4(70) +++ mg/dL NOMS HealthcareBlood, UANegativeNegative - 50 Ming/mcLNOMS HealthcareClarity, UA ClearNOMS HealthcareColor, UAYellowNOMS HealthcareGlucose, UANegativeNegative - 2000(110) ++++ mg/dLNOMS HealthcareInterpretation and review of laboratory resultsNormalNOMS HealthcareKetones, UANegativeNegative - 160(16) ++++ mg/dLNOMS HealthcareLeukocytes, UANegativeNegative - 500+++ Manpreet/mcLNOMS Healthcare Nitrite, UANegativeNegative - PositiveNOMS HealthcarepH, UA65 - 9N[facility] Protein, UANegativeNegative - 2000(20) ++++ mg/dLNOMS HealthcareSpec Grav, UA 1.011 - 1.03NOMS HealthcareUrobilinogen, UA0.20.2 - 12 mg/dLNOMS HealthcareNOMS HealthcareBOX TESTon [id number] TEST SENT OUTUNITYNOMS SzjgtqazvhVHA9TUKXU NOMS PpxqbtrcljMUS97/12/25NOMS HealthcareUNITY BOX CLINISYNCNOMS HealthcareUS OB TRANSVAGINALon 03-56-6969JG OB TRANSVAGINALEXAM: US OB TRANSVAGINAL HISTORY: Dating. LMP 01/04/2025. G1. COMPARISON: None [...] II, MD, PHD at 11-Mar-2025 08:55:38 PM [facility]-[place] TeleradiologyNormalNot AvailableComment on above:Order Comment: US OB TRANSVAGINAL No LMP recorded. Patient has had an implant.Insertion/Removal of Contraceptive Capsuleon 81-28-3299Hecnesteve Tomas LPN 11/21/2024 8:37 AM Insertion/Removal of [...] closed with steri-strips and pressure bandage applied: [facility] PAP IMAGE GUIDEDon [id number] IG (IMAGE GUIDED) Note.NOMS HealthcareComment on above:TESTS RESULT FLAG UNITS REF RANGE LAB Clinician Provided Cytology Information Source.............Cervix;Endocervix No. of containers..01 ThinPrep Vial DIAGNOSIS: 01 NEGATIVE FOR INTRAEPITHELIAL LESION OR MALIGNANCY. Specimen adequacy: 01 Satisfactory for evaluation. Endocervical and/or squamous metaplastic cells (endocervical component) are present. Performed by: Trinity Schmidt, Course Developer ([facility]) . 01 Note: Note 01 The Pap [...] High <-Panic Low,>-Panic High,A-Abnormal,AA-Critical Abnormal Performed at: [facility] [address] [address] Gabi Graves MD, Performed at: - [facility] [address] [id number] Bakelite Molder: Gabi Graves MD, Phone: [phone] BRUSH-SPATULA CERVIX ENDOCERVIX CLINISYNCNOID HealthcareAmbulatory Visit Summaryon 29-87-0377Nswrzgzfsf Visit SummaryAmbulatory Visit Summary ALEJO OVERTON :2000 Visit Date:05/04/2024 [...] PED When: In 6 months Where: [address] [place] [address]- Medications What How Much When Why Instructions Unchanged etonogestrel (Nexplanon 68 mg subcutaneous implant) Subcutaneous Once Contact prescribingphysician if questions or concerns Unchanged phentermine (Adipex-P [...] heart disease, stroke, diabetes, high blood pressure, andseveral types of cancer. Exercising, and reducing the [...] of moderate-intensity exercise a week to maintain theirbody weight. Vigorous-intensity exercise Vigorous-intensity exercise is any [...] you need and what types of activities aresafe for you. Nutrition ? Make changes to your diet as told by your health care provider or diet and food and nutrition professor (dietitian). This may include: ? Eating fewer [...] intensity of exercise may (more content not included)...[facility] Medicine Office/Clinic Noteon 40-45-5640Idzujd Medicine Office/Clinic NoteFaadcare hospital of wor[facility] Medicine Office/Clinic Note Chief Complaint Finished Adipex [...] medical support in addressing this problem. Your BMIand weight management will be followed at subsequent [...] Santo, DAE, PED In 6 months [address], [address] [place] [phone]- Additional Instructions: Patient Education Exercising to Lose [...] diphtheria/pertussis, acel/tetanus ped 0 (more content not included)...Normal [facility] CenterComment on above:Result Comment: Electronically Signed By: Cleveland RAY DO, FAAFP\.br\Date and Time Signed: 05/04/24 08:49 EDT Ambulatory Visit Summaryon 47-49-4891Hxzhemvytc Visit Summary ALEJO OVERTON :2000 Visit Date:03/30/2024 [...] EDT With: Cleveland RAY DO, FAAFP [facility] Office/Clinic Noteon 32-04-2516Jjgsns Medicine Office/Clinic NoteChief Complaint Adipex #6. Down another 1 lb. [...] medical support in addressing this problem. Your BMIand weight management will be followed at subsequent [...] medical support in addressing this problem. Your BMIand weight management will be followed at subsequent visits. Other obesity (E66.8: Other obesity) Ordered: phentermine, 37.5 mg = 1 tab(s), Oral, Daily, # 30 tab(s), Refills(s) 0, Pharmacy: [facility][id number], cm, 03/30/24 8:25:00 EDT, Height/Length Dosing, 91.2, [...] FAAFP, FAM, PED In 1 month [address] [place] [address]- Additional Instructions: Patient Education BMI for Adults Problem List/Past Medical History Ongoing Compound nevus of face Historical Other obesity School physical exam Procedure/Surgical History None. Medications Adipex-P 37.5 mg Tab, 37.5 mg= 1 tab(s), Oral, Daily Nexplanon 68 mg subcutaneous implant, SubCutaneou (more content not included)... [facility] HospitalComment on above:Result Comment: Electronically Signed By: Cleveland RAY DO, FAAFP\.br\Date and Time Signed: 03/30/24 08:47 EDT Patient Educationon 23-04-7675Gwutgpn EducationNutrition BMI for Adults What is BMI? Body mass index (BMI) is a number that is calculated from a person's weight and height. BMI can help estimate how much of a person's weight is composed of fat. BMI does not measure body fat directly.Rather, it is an alternative to procedures that [...] your height. Both height and weight are measured,and the BMI is calculated from those numbers. This can be done either in [place] ([place] or metric measurements. Note that charts and online BMI calculators are available to help you find your BMI quickly and easily without having to do these calculations yourself. To calculate your BMI in [place] measurements: 1. Measure your weight in [...] meters squared number. In this example: 70 ?3.1 = 22.6. This is your BMI. What [...] for Disease Control and Prevention: www.cdc.gov ? [place] Heart Association: www.heart.org ? National Heart, Lung, and Blood [place]: www.nhlbi.nih.gov Summary ? Body mass index (BMI) is a number that is calculated from a person's weight and height. ? BMI may help estimate how much of a person's weight is composed of fat. BMI can help identify those who may be at higher risk for certain medical problems. ? BMI can be measured using [place]ian measurements or metric measurements. ? BMI charts are used to identify whether you are underweight, normal weight, overweight, or obese. This information is not intended to replace advice given to you by your health care provider. Make sure you discuss any questions you have with your health care provider. Document Revised: 07/17/2020 Document Reviewed: 05/24/2020 [employer] Patient Education ? 2022 [employer].[facility] Ambulatory Visit Summaryon 22-28-4133Wodpokgyrl Visit Summary ALEJO OVERTON :2000 Visit Date:03/06/2024 [...] EDT With: Cleveland RAY DO, FAAFP Where: [facility] [address] [place] [address]- \.br\ You Need to Schedule the Following Appointments\.br\ Follow Up with Cleveland RAY DO, FAAFP, FAM, PED When: In 1 month\.br\ Where:\.br\ [address]\ [place] [address].br\ \.br\ Medications\.br\ What How Much When Why Instructions\.br\ Unchanged etonogestrel (Nexplanon 68 mg subcutaneous implant) Subcutaneous Once\.br\ Unchanged phentermine (Adipex-P 37.5 mg Tab) 1 Tablets By Mouth Every day Other obesity Pickup at [facility] #[id number]\.br\ Pharmacy Information\.br\ [email or web address][id number]: [address], [place] [phone]\.br\ Allergies\.br\ No Known Medication Allergies\.br\ Problems\.br\ Ongoing [...] is important for everyone. It is especially importantif you are overweight. Being overweight increases your risk of heart disease, stroke, diabetes, high blood pressure, and several types of cancer. Exercising, and reducing the calories you consume, can help you lose weight and improve fitness and health.\.br\ Exercise can be moderate or vigorous intensity. To lose weight, most people need to do a certain amount of moderate or vigorous-intensity exercise each week.\.br\ How can exercise affect me?\.br\ You lose weight when you exercise enough to burn more calories than you eat. Exercise also reduces body fat and builds muscle. The more muscle you have, the more calories you burn. Exercise also:\.br\ ? \.br\ Improves mood.\.br\ ? \.br\ Reducesstress and tension.\.br\ ? \.br\ Improves your overall fitness, flexibility, and endurance.\.br\ ? \.br\ Increases bone strength.\.br\ Moderate-intensity exercise\.br\ \.br\ Moderate-intensity exercise is any activity that gets you moving enough to burn at least three times more energy (calories) than if you were sitting.\.br\ Examples of moderate exercise include:\.br\ ? \.br\ Walking a mile in 15 minutes.\.br\ ? \.br\ Doing light yard work.\.br\ ? \.br\ Biking at an easy pace.\.br\ Most people should get at least 150 minutes of moderate- intensity exercise a week to maintain their body weight.\.br\ Vigorous-intensity exercise\.br\ Vigorous-intensity exercise is any activity that gets you moving enough to burn at least six times more calories than if you were sitting. When y ou exercise at this intensity, you should be working hard enough that you are not able to carry on a conversation.\.br\ Examples of vigorous exercise include:\.br\ ? \.br\ [...] your health care provider or diet and food and nutrition professor (dietitian). This may include:\.br\ ? \.br\ Eating [...] lunch break.\.br\ ? \.br\ Park your car fartheraway from your destination.\.br\ ? \.br\ If you take public transportation, get off one stop early and walk the rest of the way.\.br\ ? \.br\ Make phone calls while standing up and walking around.\.br\ ? \.br\ Take the stairs instead of elevators or escalators.\.br\ ? \.br\ Wear comfortable clothesand shoes with good support.\.br\ ? \.br\ Do not exercise so much that you hurt yourself, feel dizzy, or get very short of breath.\.br\ Where to find more information\.br\ ? \.br\ U.S. Department of Health and Human Services: www.hhs.gov\.br\ ? \.br\ Centers for Disease Control and Prevention: www.cdc.gov\.br\ Contact a health care provider:\.br\ ? \.br\ Before starting a new exercise program.\.br\ ? \.br\ If you have questions or concerns about your weight.\.br\ ? \.br\ If you have a medical problem that keeps you from exercising.\.br\ Get help right away if:\.br\ ? \.br\ You have any of thefollowing while exercising:\.br\ ? \.br\ Injury.\.br\ ? \.br\ Dizziness.\.br\ ? \.br\ Difficulty breathing or shortness of breath that does not go away when you stop exercising.\.br\ ? \.br\ Chest bigg n.\.br\ ? \.br\ Rapid heartbeat.\.br\ These symptoms may represent a serious problem that is an emergency. Do not wait to see if the symptoms will go away. Get medical help right away. Call your local emergency services (911 in the [place].S[place] Do not drive yourself to the hospital.\.br\ Summary\.br\ ? \.br\ Getting regular exercise is especially important if you are overweight.\.br\ ? \.br\ Being overweight increases your risk [...] given to you by your health care provider.[facility] Medicine Office/Clinic Noteon 83-86-0512Gdtfvk Medicine Office/Clinic NoteChief Complaint Adipex #5. Down 3 lbs. 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 Chest pain? no Palpitations? no MAZARIEGSO/SOB? no Orthopnea? no PND? no Edema? no [...] medical support in addressing this problem. Your BMIand weight management will be followed at subsequent visits. Other obesity (E66.8: Other obesity) Ordered: phentermine, 37.5 mg = 1 tab(s), Oral, Daily, # 30 tab(s), Refills(s) 0, Pharmacy: [facility] #[id number], cm, 03/06/24 8:02:00 EDT, Height/Length Dosing, 91.7, [...] Other Testing: Follow-up With When Contact Information AURELIO BAJWA FAAFP, Cleveland Santo, FAM, PED In 1 month [address] [place] [address]- Additional Instructions: Patient Education Exercising to Lose Weight Problem List/Past Medical History Ongoing Compound nevus of face Historical Other obesity School physical exam Procedure/Surgical History None. Medications Adipex-P 37.5 mg Tab, 37.5 mg= 1 tab(s), Oral, Daily Nexplanon 68 mg subcutaneous implant, SubCutaneous, Once Allergies No Known Medication Allergies Social History Alcohol - Denies (more content not included)...[facility] Comment on above:Result Comment: Electronically Signed By: Cleveland RAY DO, FAAFP\Date and Time Signed: 03/06/24 08:20 EDTPatient Educationon 03-06-2024 Patient EducationPhysical Medicine and Rehabilitation Exercising to Lose Weight Getting regular exercise is important for everyone. It is especially important if you are overweight. Being overweight increases your risk of heart disease, stroke, diabetes, high blood pressure, andseveral types of cancer. Exercising, and reducing the [...] of moderate-intensity exercise a week to maintain theirbody weight. Vigorous-intensity exercise Vigorous-intensity exercise is any [...] you need and what types of activities aresafe for you. Nutrition ? Make changes to your diet as told by your health care provider or diet and food and nutrition professor (dietitian). This may include: ? Eating fewer [...] goals. Your health care provider can help youmake an exercise plan that works for you. [...] as helpful as long, structured periods of exercise.If you have trouble finding time to exercise, [...] regular exercise is e (more content not included)...[facility] HospitalAmbulatory Visit Summaryon [id number] Visit Summary BROOKLYNNALEJO :2000 Visit Date:02/03/2024 Ambulatory Visit Instructions Your [...] Mouth Every day Other obesity Pickup at [email or web address][id number] Pharmacy Information [id number]: [address], [place] [phone] Allergies No Known Medication Allergies Problems Ongoing [...] you for choosing us for your care. [facility] Medicine Office/Clinic Noteon 48-84-4184Knmncg Medicine Office/Clinic NoteChief Complaint Adipex #4. Weight stayed the same. [...] medical support in addressing this problem. Your BMIand weight management will be followed at subsequent visits. 3. Other obesity (E66.8: Other obesity) Diet and exercise BMI goal of 25, she has lost 5% of her body weight over the last 3 months and cancontinue Adipex if so desires, I went down to 1/2 tab per day Ordered: phentermine, 37.5 mg = 1 tab(s), Oral, Daily, # 30 tab(s), Refills(s) 0, Pharmacy: [facility] #[id number], cm, 02/03/24 8:01:00 EDT, Height/Length Dosing, 93, kg, 02/03/24 8:01:00 EDT, Weight Dosing Follow-up With When Contact Information AURELIO BAJWA FAAFP, Cleveland Santo, FAM, PED In 1 month [address], [place] [address]- Additional Instructions: Patient Education Exercising [...] virus vaccine 04/03/2005 Recorded poliovirus vaccine, inactivated more content not included)...Normal [facility] CenterComment on above:Result Comment: Electronically Signed By: Cleveland RAY DO, FAAFP\.naheed\Date and Time Signed: 02/03/24 08:35 EDT Patient Educationon 28-44-9482Bvcwaah EducationPhysical Medicine and Rehabilitation Exercising to Lose Weight Getting regular exercise is important for everyone. It is especially important if you are overweight. Being overweight increases your risk of heart disease, stroke, diabetes, high blood pressure, andseveral types of cancer. Exercising, and reducing the [...] of moderate-intensity exercise a week to maintain theirbody weight. Vigorous-intensity exercise Vigorous-intensity exercise is any [...] you need and what types of activities aresafe for you. Nutrition ? Make changes to your diet as told by your health care provider or diet and food and nutrition professor (dietitian). This may include: ? Eating fewer [...] goals. Your health care provider can help youmake an exercise plan that works for you. [...] as helpful as long, structured periods of exercise.If you have trouble finding time to exercise, [...] regular exercise is e (more content not included)...[facility] Memorial HospitalCHEMISTRYOrdered By: SYSTEM SYSTEM on 45-94-8472Ohtaufjavsb [Mass/Vol]140 mg/qPZisimo770 - 200 mg/dLFT RemisolCholesterol in HDL [Mass/Vol]51 mg/dLInvalid Interpretation CodeFTMC RemisolCholesterol in LDL [Mass/Vol]88 mg/dLNormal<=129mg/dLFTMC RemisolCholesterol in VLDL [Mass/Vol]7 mg/dLNormal7 - 40 mg/dLFTMC RemisolGlucose post fast [Mass/Vol]99 mg/zFYhdtfp51 - 99 mg/dLFT RemisolTriglyceride [Mass/Vol]37 mg/dLNormal<=149mg/dLALLIANCEHEALTH [facility] Remisol Vital Signs Date TimeVital SignValuePerforming DgmkcmgwmTjrwdszb69-66-1271 13:40-0500Body mass index (BMI) [Ratio]36.23 kg/m2Gabby Contreras PA Work Phone: [phone]-[facility] HospitalBnnmgughxb47-14-5108 13:40-0500Body .53 kgGabby Niyah PA Work Phone: [phone] [place] [address]-05-2025 13:40-0500Diastolic blood uqpemydz14 mm[Hg]Gabby Contreras PA Work Phone: [phone] [place] [address]-05-2025 13:40-0500Systolic blood ppbqothu874 mm[Hg]Gabby Contreras PA Work Phone: [phone] [place], [place] [address]Jsdzmwnbqt27-31-1399 13:59-0400Body mass index (BMI) [Ratio]35.13 kg/m2Gabby Niyah PA Work Phone: [phone] [place], [place] [address]Casczcnbsb67-58-8793 13:59-0400Body .04 kgGabby Niyah PA Work Phone: [phone]-[facility] HospitalZifvdsswmw75-49-9389 13:59-0400Diastolic blood qiatgepf47 mm[Hg]Gabby Contreras PA Work Phone: [phone] [place], [place] [address]Bvvelsrwfa29-24-6078 13:59-0400Systolic blood phuyktcr579 mm[Hg]Gabby Contreras PA Work Phone: [phone] [place], [place] [address]Bkxdzstjfn02-28-7983 11:24-0400Body mass index (BMI) [Ratio]35.53 kg/p7DwbefhyxKristy Goel WIRE BRUSHER Work Phone: [phone]-[facility] HospitalKreiwkhzkv73-10-9119 11:24-0400Body yujdqp259.31 kgKristy Goel WIRE BRUSHER Work Phone: [phone] [place], [place] [address]Mwtyskzxxj75-22-4790 11:24-0400Diastolic blood aqtyvdwb12 mm[Hg]Kristy Goel WIRE BRUSHER Work Phone: [phone]-[facility] HospitalXsgqylqjiq92-52-3731 11:24-0400Systolic blood epnlyxxe288 mm[Hg]Kristy Manasa WIRE BRUSHER Work Phone: [facility] HospitalGftshxgepm85-94-6653 15:04-0400Body mass index (BMI) [Ratio]34.58 kg/m2Amy Niyah PA Work Phone: [facility] HospitalYljajwsxna95-10-2309 15:04-0400Body yoabgr859.32 kgGabby CHANEL Work Phone: [phone]-[facility] HospitalNojkhcvyfl48-70-3760 15:04-0400Diastolic blood wypiipkm42 mm[Hg]Gabby CHNAEL Work Phone: [facility] HospitalGtmhzuuutt94-84-3574 15:04-0400Systolic blood nidyjgxw338 mm[Hg]Gabby CHANEL Work Phone: [phone]-[facility] HospitalNnpwazkovq16-34-9332 15:04-0400Body mass index (BMI) [Ratio]33.83 kg/d9Jxmid Servando DO Work Phone: [phone] [place], [place] [address]Gnzsdxsmwv74-91-5085 15:04-0400Body qkokjf154.96 kgCorey Servando DO Work Phone: [phone]-[facility] HospitalEl[facility] HospitalWfhffunozg38-78-8159 15:04-0400Diastolic blood uplwloze40 mm[Hg]Jessie Servando DO Work Phone: [phone]-[facility] HospitalFpojfrkjim36-02-9397 15:04-0400Systolic blood vakvzykg303 mm[Hg]Jessie Servando DO Work Phone: [phone] [place], [place] [address]Jvwqnvjwun79-92-9482 14:37-0400Body mass index (BMI) [Ratio]32.79 kg/m2Amy Niyah PA Work Phone: [facility] HospitalLvilpyjdsu42-22-3454 14:37-0400Body elnfek686.65 kgGabby CHANEL Work Phone: [facility] HospitalDmwptfxsml51-28-7297 14:37-0400Diastolic blood fyodltqd33 mm[Hg]Gabby CHANEL Work Phone: [facility] HospitalXezkylhqqz13-55-2016 14:37-0400Systolic blood oiritkld245 mm[Hg]Gabby CHANEL Work Phone: [facility] HospitalKtjefvjcsk25-84-2711 09:35-0400Body mass index (BMI) [Ratio]32.11 kg/j4Sbcaz Servando DO Work Phone: [phone] [place], [place] [address]Odlldjapbn91-88-2457 09:35-0400Body lvxanz785.52 kgCorey Servando DO Work Phone: [phone] [place], [place] [address]Ljxjdedgbc87-55-9402 09:35-0400Diastolic blood mm[Hg]Jessie Servando DO Work Phone: [phone] [place], [place] [address]Dvaesceidw77-17-2316 09:35-0400Systolic blood mrvfkcbu757 mm[Hg]Jessie Servando DO Work Phone: [phone] [place], [place] [address]Qjzefsqrdl78-82-5320 15:37-0400Body mass index (BMI) [Ratio]31.67 kg/t5Kahaz Servando DO Work Phone: [phone] [place], [place] [address]Ykmisasede43-14-1066 15:37-0400Body oespnc963.13 kgCorey Servando DO Work Phone: [phone] [place], [place] [address]Spqtyudohy06-16-7503 15:37-0400Diastolic blood htquczoh54 mm[Hg]Jessie Servando DO Work Phone: [phone] [place], [place] [address]Hqqoenpitg15-03-7405 15:37-0400Systolic blood shiooedz985 mm[Hg]Jessie Servando DO Work Phone: [phone] [place], [place] [address]Xcrjmnjkfb70-22-3630 09:18-0400Body mass index (BMI) [Ratio]31.15 kg/m2[facility]05-02-2025 09:18-0400Body rsjajb32.48 kgSSM Rehab01-13-2025 13:47-0500Body mass index (BMI) [Ratio]29.99 kg/k3Bkfyb Servando DO Work Phone: [phone] [place], [place] [address]Fuobzmzjsy82-72-5246 13:47-0500Body jpprju74.8 kg Jessie Servando DO Work Phone: [phone])[facility] [place], [place] [address]Bqnwyrjluk70-33-5530 13:47-0500Diastolic blood eubkjwfs13 mm[Hg]Jessie Servando DO Work Phone: [phone])[facility] [address] [place], [place] [address]Gjqvjlsfvs21-12-9093 13:47-0500Systolic blood ybkafzfm789 mm[Hg]Jessie Servando DO Work Phone: [phone] [place], [place] 2506008-26-2024 14:50-0400Body mass index (BMI) [Ratio]29.1 kg/p9Fwgoj Servando DO Work Phone: 1([phone] [place], [place] 2506008-26-2024 14:50-0400Body nyjnvj51.99 kgCorey Servando DO Work Phone: 1([phone] [place] [address]-26-2024 14:50-0400Diastolic blood mvpbxsiu69 mm[Hg]Jessie Servando DO Work Phone: 1([phone])[address] [place], [place] 2506008-26-2024 14:50-0400Systolic blood ulvwqnnf017 mm[Hg]Jessie Servando DO Work Phone: 1([phone] [place], [place] 2506006-27-2024 08:28-0400Blood Pressure LocationScott KAPLE 278-6712Wrpgga-NzdlpKing'[facility] [place]06-27-2024 08:28-0400Body yozhwhbzyae71.88 [degF][place] RAY 552-9476Kfzycg-FckdkKing'S [facility] [place]06-27-2024 08:28-0400Diastolic blood mm[Hg][place] RAY 090-5963Vlzmfu-KyjhsKing'S [facility] [place]06-27-2024 08:28-0400Heart rate78 /minScott KAPLE 472-3130Bgissj-IdmnhKing'S [facility] [place]06-27-2024 08:28-0400Respiratory rate16 /minScott KAPLE 290-1590Wlxzls-KhrpcKing'[facility] [place]06-27-2024 08:28-1413RgS1% (BldA) [Mass fraction]99 %[place] RAY [address] [place], [place] 1098706-27-2024 08:28-0400Systolic blood galyadri178 mm[Hg][place] KAPLE [address] [place], [place] 1098705-23-2024 08:18-0400Blood Pressure LocationScott KAPLE [address] [place], [place] 1098705-23-2024 08:18-0400Body erdrqrfcygd67.88 [degF][place] KAPLE [address] [place], [place] 1098705-23-2024 08:18-0400Diastolic blood mm[Hg][place] KAPLE [address] [place], [place] 1098705-23-2024 08:18-0400Heart rate80 /minScott KAPLE [address] [place], [place] 1098705-23-2024 08:18-0400Respiratory rate16 /minScott KAPLE [address] [place], [place] 1098705-23-2024 08:18-0322CcQ1% (BldA) [Mass fraction]99 %[place] KAPLE [address] [place], [place] 1098705-23-2024 08:18-0400Systolic blood vfnnumfi284 mm[Hg][place] LOPEZLE 125-6582Vulkqt-Tcolf[address] [place], [place] 7922004-29-2024 07:56-0400Blood Pressure LocationScott KAPLE 127-0897Trbkcq-Zeffx[address] [place], [place] 7922004-29-2024 07:56-0400Body rzeovpeuslu89.7 [degF][place] KAPLE [address] [place], [place] 1098704-29-2024 07:56-0400Diastolic blood qkvwphed38 mm[Hg][place] LOPEZLE [address] [place], [place] 1098704-29-2024 07:56-0400Heart rate76 /minScott KAPLE 316-5313Vjqbxu-Oslca[address] [place], [place] 7922004-29-2024 07:56-0400Respiratory rate16 /minScott KAPLE 946-8468Ubmyis-Xamkm[address] [place], [place] 7922004-29-2024 07:56-6991MvD9% (BldA) [Mass fraction]99 %[place] KAPLE [address] [place], [place] 1098704-29-2024 07:56-0400Systolic blood pxlugqmv275 mm[Hg][place] KAPLE [address] [place], [place] 1098703-28-2024 07:54-0400Blood Pressure LocationScott KAPLE [address] [place], [place] 1098703-28-2024 07:54-0400Body randyssipel88.88 [degF][place] KAPLE [address] [place], [place] 1098703-28-2024 07:54-0400Diastolic blood seewjtyr67 mm[Hg][place] KAPLE 892-6269Btotxf-Ebqtf[address]03-28-2024 07:54-0400Heart rate80 /minScott KAPLE 237-8560Rqvnsb-Yquum[address] [place], [place] 7922003-28-2024 07:54-0400Respiratory rate16 /minScott KAPLE 259-9199Pnhumt-Knlfw[address] [place], [place] 7922003-28-2024 07:54-5273VfS3% (BldA) [Mass fraction]97 %[place] KAPLE 712-3414Hwzlhv-Vpakn[address]03-28-2024 07:54-0400Systolic blood uuhcrbgy287 mm[Hg][place] KAPLE 360-8771Sapikt-Iewgp[address] [place], [place] 7922002-29-2024 08:26-0500Blood Pressure LocationScott KAPLE 973-4968Gzalxj-Hacxb[address] [place], [place] 7922002-29-2024 08:26-0500Body bhncjlrsbyz47.88 [degF][place] KAPLE 123-9719Hzhyho-Qbvkr[address] [place], [place] 7922002-29-2024 08:26-0500Diastolic blood ehcxrssr36 mm[Hg][place] KAPLE 794-8792Kmyqsv-Tvgmw[address] [place], [place] 7922002-29-2024 08:26-0500Heart rate84 /minScott KAPLE 511-0818Owwjgp-Xnzyu[address] [place], [place] 7922002-29-2024 08:26-0500Respiratory rate16 /minScott KAPLE 201-5400Ugdzpf-Uuhfv[address] [place], [place] 7922002-29-2024 08:26-6257HnW5% (BldA) [Mass fraction]99 %[place] KAPLE 158-9255Raranm-Dasgp[address] [place], [place] 7922002-29-2024 08:26-0500Systolic blood oizjnxwd263 mm[Hg][place] KAPLE 395-6647Ifkkra-Plwzl[address] [place], [place] 7922001-29-2024 08:24-0500Blood Pressure LocationScott KAPLE 513-0620Zeaobk-Heppt[address] [place], [place] 7922001-29-2024 08:24-0500Body cibiuwvxxgn35.88 [degF][place] KAPLE 133-8131Zoilrv-Cotse[address] [place], [place] 7922001-29-2024 08:24-0500Diastolic blood ydsbtuua64 mm[Hg][place] KAPLE 046-3250Ijsiur-Tsubl[address] [place], [place] 7922001-29-2024 08:24-0500Heart rate86 /minScott KAPLE 948-9422Snhgln-Oekmt[address] [place], [place] 7922001-29-2024 08:24-0500Respiratory rate16 /minScott KAPLE 479-7464Xuwzxe-Bufnh[address] [place], [place] 7922001-29-2024 08:24-0310UdV4% (BldA) [Mass fraction]98 %[place] KAPLE [address] [place], [place] 1098701-29-2024 08:24-0500Systolic blood tkmmochf684 mm[Hg][place] KAPLE [address] [place], [place] 1098712-28-2023 07:49-0500Blood Pressure LocationScott KAPLE [address] [place], [place] 1098712-28-2023 07:49-0500Body ttnxbxjudco31.88 [degF][place] KAPLE [address] [place], [place] 1098712-28-2023 07:49-0500Diastolic blood bfxubznb92 mm[Hg][place] KAPLE [address] [place], [place] 1098712-28-2023 07:49-0500Heart rate86 /minScott KAPLE [address] [place], [place] 1098712-28-2023 07:49-0500Respiratory rate16 /minScott KAPLE 962-0261Njfrsx-Xwaic[address] [place], [place] 7922012-28-2023 07:49-2305ZiV0% (BldA) [Mass fraction]97 %[place] KAPLE [address] [place], [place] 1098712-28-2023 07:49-0500Systolic blood lysazbof728 mm[Hg][place] KAPLE 726-2997Vgrpwr-Argjs[address] [place], [place] 7922006-26-2023 07:40-0400Blood Pressure LocationScott KAPLE [address] [place], [place] 1098706-26-2023 07:40-0400Body eujrwvrahnh48.88 [degF][place] KAPLE [address] [place], [place] 1098706-26-2023 07:40-0400Diastolic blood mm[Hg][place] KAPLE 132-2001Ghvtvq-OjuoeKing'[facility] [place]06-26-2023 07:40-0400Heart rate85 /minScott KAPLE 826-6988Srayqv-Mctbb[address] [place], [place] 7922006-26-2023 07:40-0400Respiratory rate16 /minScott KAPLE 783-7130Tmgdzn-Nzeei[address] [place], [place] 7922006-26-2023 07:40-4718DeG7% (BldA) [Mass fraction]100 %[place] LOPEZLE 648-4229Znwvgk-Eqcet[address] [place], [place] 7922006-26-2023 07:40-0400Systolic blood rpoqebhk118 mm[Hg][place] JOHNLE 657-0015Ecwfxi-Emsqs[address] [place], [place] 7922004-17-2023 14:47-0400Blood Pressure LocationScott KAPLE 275-3911Fxvohw-Wsmao[address] [place], [place] 7922004-17-2023 14:47-0400Body kqgmegvejpa12.88 [degF][place] RAY [address] [place] [address]-17-2023 14:47-0400Diastolic blood nccxsduh84 mm[Hg][place] RAY 438-0164Amywzo-Gllov[address] [place] [address]-17-2023 14:47-0400Heart rate78 /minScott KAPLE 646-2341Urhnoy-Xtbzv[address] [place], [place] 7922004-17-2023 14:47-0400Respiratory rate16 /minScott KAPLE 270-0466Lvdokz-Uxcfs[address] [place], [place] 7922004-17-2023 14:47-6665KuY6% (BldA) [Mass fraction]99 %[place] RAY 819-0438Iltyak-Zemzp[address] [place], [place] 7922004-17-2023 14:47-0400Systolic blood hxsalfek585 mm[Hg][place] JOHNLE 002-9048Kmvfrt-Bmrgk[address] [place] [address]-17-2023 13:14-0400Blood Pressure LocationScott KAPLE 320-3107Hbcmuy-Dflng[address] [place], [place] 7922003-17-2023 13:14-0400Body curivvqslgu14.24 [degF][place] KAPLE [address] [place], [place] 1098703-17-2023 13:14-0400Diastolic blood ejgpwyzs62 mm[Hg][place] KAPLE [address] [place], [place] 1098703-17-2023 13:14-0400Heart rate76 /minScott KAPLE [address] [place], [place] 1098703-17-2023 13:14-0400Systolic blood cysapxfb767 mm[Hg][place] KAPLE [address] [place], [place] 1098703-09-2023 07:53-0500Blood Pressure LocationScott KAPLE [address] [place], [place] 1098703-09-2023 07:53-0500Body puzltpipvlj38.88 [degF][place] KAPLE [address] [place] 1098703-09-2023 07:53-0500Diastolic blood cwshaxcc49 mm[Hg][place] KAPLE 253-0279Rezizo-Jttpa[address] [place], [place] 7922003-09-2023 07:53-0500Heart rate69 /minScott KAPLE 408-4965Trvfqo-Csvgb[address] [place], [place] 7922003-09-2023 07:53-0500Respiratory rate16 /minScott KAPLE [address] [place], [place] 1098703-09-2023 07:53-3215QuX7% (BldA) [Mass fraction]98 %[place] KAPLE 210-0102Ekxuvl-Plfah[address] [place], [place] 7922003-09-2023 07:53-0500Systolic blood culkcmvu053 mm[Hg][place] RAY 996-9539Yqknmv-RdtcnTuscarawas Hospital [facility] Encounters Encounter DateEncounter TypeCare ProviderFacilityStart: 09-12-2025 End: 82-04-1330Bbzuhh Jamison CHANEL Work Phone: [facility]: 09-12-2025 End: 31-79-5638Eltwag Jamison Contreras PA Work Phone: [facility]Start: 09-12-2025 End: 47-31-2534Mabemufy flow aliciaGabby Contreras PA Work Phone: [facility]BGYNComment on above:Third trimester ([facility]); 34 weeks gestation of ([facility])Start: 09-12-2025 End: 02-86-7572repreqdthsEKZ RAMEYNot AvailableStart: 08-28-2025 End: 54-50-6023Fxqjlg Jamison Contreras PA Work Phone: [facility]: 08-28-2025 End: 35-84-3407Whowmo Jamison Contreras PA Work Phone: [facility]Start: 08-28-2025 End: 95-04-8474Rtfzevtk flow aliciaGabby Niyah PA Work Phone: [facility] [facility]BGYNComment on above:Third trimester ([facility]); 32 weeks gestation of ([facility])Start: 08-28-2025 End: 03-51-0441xpeudvjoajALI RAMEYNot AvailableStart: 08-15-2025 End: 55-59-1016Wgxcwmvlc Result EncounterKristy Goel NP Work Phone: [facility] External Department UnsolicitedStart: 08-15-2025 End: 08-93-9540Jozieaxmk Result EncounterKristy Goel NP Work Phone: [facility] External Department UnsolicitedStart: 08-15-2025 End: 26-82-1578Lmdhlfsw flow sheetKristy Goel NP Work Phone: [facility]BGYNComment on above:Third trimester ([facility]); 30 weeks gestation of ([facility])Start: 08-15-2025 End: 19-35-9635aaadasgduaOWJXJIXQ EBERLYNot AvailableStart: 08-01-2025 End: 13-15-2677Ewsolrjg flow Anand CHANEL Work Phone: [facility]BGYNComment on above: size inconsistent with dates ([facility]) (Primary Dx); Third trimester ([facility]); 28 weeks gestation of ([facility])Start: 08-01-2025 End: 78-26-8166ypihevmzymUAI RAMEYNot AvailableStart: 08-01-2025 End: 35-27-1047Fywils Jamison CHANEL Work Phone: [facility]YNStart: 08-01-2025 End: 83-10-1591Nbanbx flowsCurt CHANEL Work Phone: [facility]YNStart: 07-18-2025 End: 62-42-6204Sfucxbryh Result EncounterCorey Servando DO Work Phone: [facility] External Department UnsolicitedStart: 07-18-2025 End: 56-94-7005Gypshacmc Result EncounterCorey Servando DO Work Phone: [facility] External Department UnsolicitedStart: 07-04-2025 End: 17-59-1432Bkagyvw encounter procedureCorey Servando DO Work Phone: [facility] Work Phone: Start: 07-04-2025 End: 75-75-0853Vovkgtyx preventive med est patient 18-39 yrsCorey Servando DO Work Phone: [facility]BGYNComment on above:Well woman exam with routine gynecological exam; Vaginal discharge; STD exposure; Second trimester ([facility]); 24 weeks gestation of ([facility]); Diabetes mellitus screeningStart: 07-04-2025 End: 99-08-7159gyxjbryjiqRKWUF FAZIONot AvailableStart: 07-04-2025 End: 93-40-3808Htaijb flowsheetCorey Servando DO Work Phone: [facility]Start: 07-04-2025 End: 49-95-0360Iaiael flowsheetCorey Servando DO Work Phone: [facility]Start: 07-04-2025 End: 53-66-6683Aeypmwqih Result EncounterCorey Servando DO Work Phone: [facility] External Department UnsolicitedStart: 07-04-2025 End: 95-51-5863Aqdnsarm Result EncounterCorey Servando DO Work Phone: NO[facility] External Department UnsolicitedStart: 06-13-2025 End: 44-91-8921Zlztmremq Result EncounterCorey Servando DO Work Phone: N[facility] External Department UnsolicitedStart: 06-13-2025 End: 58-15-2519Cancnrdld Result EncounterCorey Servando DO Work Phone: [facility] External Department UnsolicitedStart: 06-05-2025 End: 10-03-5769Ljqvctev flow Anand CHANEL Work Phone: [facility] [facility]BGYNComment on above:Second trimester ([facility]); 20 weeks gestation of ([facility]); Encounter for follow-up ultrasound of anatomy ([facility])Start: 06-05-2025 End: 62-28-6844fxaychyaejPZA RAMEYNot AvailableStart: 06-05-2025 End: 23-98-4208Ypitka Jamison CHANEL Work Phone: [facility] [facility]YNStart: 06-05-2025 End: 59-80-4586Hurqpv Jamison CHANEL Work Phone: [facility]BGYNStart: 06-04-2025 End: 89-76-5468Adzpvujog Result EncounterCorey Servando DO Work Phone: NOTG External Department UnsolicitedStart: 06-04-2025 End: 83-47-1153Ahvoumpzs Result EncounterCorey Servando DO Work Phone: [facility] External Department UnsolicitedStart: 05-21-2025 End: 20-85-1283Lhllrqobx Result EncounterCorey Servando DO Work Phone: NODL External Department UnsolicitedStart: 05-21-2025 End: 33-26-7451Oxbgguuzk Result EncounterCorey Servando DO Work Phone: NODB External Department UnsolicitedStart: 05-08-2025 End: 55-75-1838Iqnvph flowsheetCorey Servando DO Work Phone: NOLJ BCP OBStart: 05-08-2025 End: 44-52-7292Leygfy flowsheetCorey Servando DO Work Phone: NOGA BCP OBStart: 05-08-2025 End: 63-08-5995xqavibtbpaSCKBX FAZIONot AvailableStart: 05-08-2025 End: 14-60-0552Ffdwjftb flow sheetCorey Servando DO Work Phone: [facility] BCP OBComment on above:Second trimester ([facility]); 16 weeks gestation of ([facility]); Screening, , for anatomic survey ([facility])Start: 04-09-2025 End: 89-14-8750rxfsjesqpgSASPP FAZIONot AvailableStart: 04-09-2025 End: 68-46-2042Qgruwifg flow sheetCorey Servando DO Work Phone: [facility] BCP OBComment on above:First trimester (Primary Dx)Start: 04-09-2025 End: 17-23-8938Lyzdoy flowsheetCorey Servando DO Work Phone: [facility] BCP OBStart: 04-09-2025 End: 59-81-5387Caygtz flowsheetCorey Servando DO Work Phone: [facility] BCP OBStart: 03-19-2025 End: 80-99-3433Phxuqtwfa Result EncounterCorey Servando DO Work Phone: [facility] External Department UnsolicitedStart: 03-19-2025 End: 64-82-0696Csrleazgr Result EncounterCorey Servando DO Work Phone: [facility] External Department UnsolicitedStart: 03-13-2025 ambulatoryScott A KAPLEFacility:Isak PCStart: 03-09-2025 End: 22-59-6875Hxipwk outpatient visit 5 minutesNoms Bcp Ob Servando NurseNOMS BCP OBComment on above:GA: 4k5rNpjku: 03-09-2025 End: 28-49-6660emxlgnzheqHMQPO FAZIONot AvailableStart: 11-20-2024 End: 02-58-5496Mapqdzq encounter procedureCorey Servando DO Work Phone: [facility] BCP OBComment on above:Nexplanon removalStart: 11-20-2024 End: 74-03-6579cmqbwfbkyiMUSAY FAZIONot AvailableStart: 07-03-2024 End: 39-90-8817Lgmzlcwc preventive med est patient 18-39 yrsCorey Servando DO Work Phone: [facility] BCP OBComment on above:Encounter for repeat Pap smear due to previous insufficient cervical cellsStart: 07-03-2024 End: 83-71-2337Jybmte flowsheetCorey Servando DO Work Phone: [facility] BCP OBStart: 07-03-2024 End: 28-77-8505Cwxjuepcl Result EncounterCorey Servando DO Work Phone: [facility] External Department UnsolicitedStart: 07-03-2024 End: 92-06-8772Aamrjggfw Result EncounterCorey Servando DO Work Phone: [facility] External Department UnsolicitedStart: 05-04-2024 End: 48-70-8979eexdcrmxekJecqk A KAPLEFacility:Isak PCStart: 05-04-2024 End: 19-04-4640Iljfxvd encounter procedureScott A KAPLE [phone]-NjjccTuscarawas Hospital [facility] Start: 03-30-2024 End: 08-96-8480vhfraudbptAtpdh A KAPLEFacility:Isak PCStart: 03-30-2024 End: 74-87-4685Ukjmgni encounter procedureScott A KAPLE [phone]-CqajkTuscarawas Hospital Primary Care Start: 03-06-2024 End: 16-33-9508ttscqlhrsvRuenk A KAPLEFacility:Isak PCStart: 03-06-2024 End: 69-86-7908Lhfegon encounter procedureScott A KAPLE [phone]-RjjhwTuscarawas Hospital Primary Care Start: 02-03-2024 End: 19-90-0997mrdcbjtbynLitma A KAPLEFacility:Isak PCStart: 02-03-2024 End: 11-66-2543Klosmjy encounter procedureScott A KAPLE 007-0271Vxnbyo-GosurTuscarawas Hospital Primary Care Start: 01-06-2024 End: 29-86-7609Hqyycgu encounter procedureScott A KAPLE 373-1487Sbxzwf-JmqowTuscarawas Hospital Primary Care Start: 12-06-2023 End: 56-13-1327Ifttqjd encounter procedureScott A KAPLE 860-0294Fccvls-TjvnwTuscarawas Hospital Primary Care Start: 11-04-2023 End: 58-36-0280Pfiezvr encounter procedureScott A KAPLE [phone]-HqfwwTuscarawas Hospital Primary Care Start: 05-03-2023 End: 79-76-6527Tdnnark encounter procedureScocali RAY [phone]-IvariTuscarawas Hospital Primary Care Start: 02-22-2023 End: 55-96-8365Qnbupvq encounter procedureScocali RAY [phone]-VxjmpTuscarawas Hospital Primary Care Start: 01-22-2023 End: 79-35-1770Ehqkatd encounter procedureScocali RAY [phone]-YunwtTuscarawas Hospital [facility] Care Start: 01-16-2023 End: 74-08-9035Qofsfyr encounter procedureScocali [facility] Start: 01-14-2023 End: 11-38-2441Xapjgug encounter procedureScocali [place] [facility] [phone]-RveqtTuscarawas Hospital Primary Care Start: 01-14-2023 End: 57-21-0368Niuc adult monitoring check doneScott Gal [facility] [phone]-SgyzwTuscarawas Hospital Primary Care Procedures DateProcedureProcedure DetailPerforming ClinicianStart: 59-51-8737Hltrf dip stick/tablet rgnt non-auto w/o micrscpAmy Niyah CHANEL Work Phone: Start: 74-53-6028Wegnv dip stick/tablet rgnt non-auto w/o micrscpAmy Niyah CHANEL Work Phone: Start: 71-70-4984Hlglf dip stick/tablet rgnt non-auto w/o micrscpKristy Goel NP Work Phone: Start: 37-80-5563PS OB GROWTHKrbrianna Goel [employer] Work Phone: Start: 24-90-1626Tsext dip stick/tablet rgnt non-auto w/o micrscpAmy Niyah CHANEL Work Phone: [phone]: 88-54-9256PTSPXSX 1 HOURCorey Servando DO Work Phone: Start: 65-62-4554XADHBDAQH VAGINITIS (HTRX)Jessie Servando DO Work Phone: [phone]: 44-03-3714Pqbzy dip stick/tablet rgnt non-auto w/o micrscpCorey Servando DO Work Phone: Start: 36-37-0824XVS,APTIMA HPV,AGE GDLNCorey Servando DO Work Phone: Start: 90-28-7161XW OB INCOMPLETE ANATOMYCorey Servando DO Work Phone: Start: 38-69-3979QD OB ANATOMYCorey Servando DO Work Phone: Start: 91-97-5524GI OB CERVICAL LENGTHCorey Servando DO Work Phone: Start: 11-27-7858LYP, SERUM, OPEN SPINA BIFIDACorey Servando DO Work Phone: Start: 77-85-6812Npgjm dip stick/tablet rgnt non-auto w/o micrscpCorey Servando DO Work Phone: Start: 93-42-1480Ojvio dip stick/tablet rgnt non-auto w/o micrscpCorey Servando DO Work Phone: Start: 42-05-7222KQP TESTCorey Servando DO Work Phone: Start: 59-24-2082GCB INSERTION/REMOVAL OF CONTRACEPTIVE CAPSULECorey Servando DO Work Phone: Start: 63-48-1193NMTI PAP IMAGE GUIDEDCorey Servando BAJWA Work Phone: None (qualifier value)[place] RAY Plan of Treatment DateCare ActivityDetailAuthorStart: 09-27-2025 End: 19-25-3263Jqvhnux encounter husyhusku72/20/2025 8:50 AM EST Routine [facility] [address] [place], [id number] Jessie Al DO [address] [place] [address] [facility]YNStart: 09-12-2025 End: 88-04-7632Irlfqxx encounter procedureNOMS [facility] OBGYNComment on above: ArrivedStart: 08-28-2025 End: 05-10-3638Wjdhmcd encounter procedureNOMS Bienven[facility] OBGYNComment on above: ArrivedStart: 08-15-2025 End: 45-71-1724Mexjxgu encounter vlqnexlot79/08/2025 11:20 AM EDT Routine [facility] [address] [place] [id number] Kristy Goel, [employer] [address] [place] [phone] [facility]Start: 08-15-2025 End: 32-70-1759Oumpyhvizgsd / ancillary services bseaayayax73/08/2025 11:00 AM EDT Ancillary Procedure [facility] [address] [place] [address] [facility]YNStart: 08-01-2025 End: 57-71-2443Kplwhwp encounter procedureNOMS [facility] OBGYNComment on above: ArrivedStart: 08-01-2025 End: 24-85-0224SF for pregnancyUS OB follow up transabdominal approach Imaging Routine size inconsistent with dates ([facility]) Expected: 08/01/2025, Expires: 12/01/2025[facility] Work Phone: comment on above:Expected: 08/01/2025, Expires: 12/01/2025Start: 07-04-2025 End: 70-80-3595Ekzcdsy encounter procedureNOMS [place] OBGYNComment on above: ArrivedStart: 07-04-2025 End: 15-17-6290IJN panel - Blood by Automated countCBC Lab Routine Diabetes mellitus screening Expected: 07/04/2025 (Approximate), Expires: 07/04/2026[facility] Work Phone: comment on above:Expected: 07/04/2025 (Approximate), Expires: 07/04/2026Start: 07-04-2025 End: 78-91-6219Qfqhegjjsdv of glucose 1 hour after glucose challenge for glucose tolerance testGlucose tolerance, 1 hour Lab Routine Diabetes mellitus screening Expected: 07/04/2025 (Approximate), Expires: 07/04/2026NO[facility] HealthcareComment on above:Expected: 07/04/2025 (Approximate), Expires: 07/04/2026Start: 06-05-2025 End: 54-41-9311Ajmcuto encounter procedureNOL[facility] OBComment on above:Arrived Start: 06-05-2025 End: 78-01-4665KT for pregnancyUS OB limited 1+ fetuses Imaging Routine Encounter for follow-up ultrasound of anatomy ([facility]) Expected: 06/05/2025, Expires: 09/05/2025[facility] Work Phone: Comment on above:Expected: 06/05/2025, Expires: 09/05/2025Start: 05-31-2025 End: 71-65-4118Zzuawxl encounter uohicaahy06/24/2025 8:30 AM EDT Office Visit [facility] [address] [place] [id number] Jessie Al, DO [address] [place], [place] [id number] [facility] OBStart: 05-08-2025 End: 18-05-4429Jegnc fetoprotein, maternalAlpha fetoprotein, maternal Lab Routine Second trimester ([facility]) 16 weeks gestation of ([facility]) Expected: 05/08/2025 (Approximate), Expires: 11/08/2025[facility] Work Phone: comment on above:Expected: 05/08/2025 (Approximate), Expires: 11/08/2025Start: 05-08-2025 End: 46-29-3492VR for pregnancyUS OB 14+ weeks anatomy scan Imaging Routine Screening, , for anatomic survey ([facility]) Expected: 05/08/2025, Expires: 08/08/2025NO[facility] HealthcareComment on above:Expected: 05/08/2025, Expires: 08/08/2025Start: 05-08-2025 End: 72-52-2970Nfnxogd encounter fewyaiwnl05/01/2025 9:10 AM EDT Routine [facility] [address] [phone] Jessie Al, DO [address] [place] [address] [facility] OBStart: 04-09-2025 End: 42-05-4024Qttwqdk encounter kiqdwawvi29/02/2025 3:10 PM EDT Routine [facility] [address] [place] [phone] Jessie Al, DO [address] [place] [address] [facility] OBStart: 03-09-2025 End: 28-96-6704AEQ/RhABO/Rh Lab Routine Missed menses , unspecified gestational age Expected: 03/09/2025 (Approximate), Expires: 03/09/2026NO[facility] HealthcareComment on above:Expected: 03/09/2025 (Approximate), Expires: 03/09/2026Start: 03-09-2025 End: 25-43-7252Tepuz type and Indirect antibody screen panel - BloodType and screen Lab Routine Missed menses , unspecified gestational age Expected: 03/09/2025 (Approximate), Expires: 03/09/2026[facility] Work Phone: comment on above:Expected: 03/09/2025 (Approximate), Expires: 03/09/2026Start: 03-09-2025 End: 51-35-6879Ngzst of abuse panel - Urine by Screen methodRapid drug screen, urine Lab Routine , unspecified gestational age Encounter for supervision of normal first in first trimester Expected: 03/09/2025 (Approximate), Expires: 03/09/2026NOID HealthcareComment on above:Expected: 03/09/2025 (Approximate), Expires: 03/09/2026Start: 11-20-2024 End: 19-44-5263Qhfcqsq encounter emqhoqkkb22/13/2025 3:30 PM EST Procedure Visit [facility] [address] [place] [id number] Jessie Al, DO [address] [place], [place] [id number] [facility] OBStart: 07-03-2024 End: 51-88-3151Wugklbn encounter bjdecxgqy67/26/2024 2:20 PM EDT Procedure Visit [facility] [address] [place] [phone] Jessie Al, DO [address] [place] [address] [facility]Comment on above:ArrivedBacteria identified in Urine by CultureUrine culture Microbiology Routine Missed menses Ordered: 03/09/2025NOID HealthcareComment on above:Ordered: 5CBC W Auto Differential panel - BloodCBC and differential Lab Routine Missed menses , unspecified gestational age Ordered: 03/09/2025[facility] HealthcareComment on above:Ordered: 03/09/2025ytology Cervical or vaginal smear or scraping studyPap Smear Pathology and Cytology Routine Encounter for repeat Pap smear due to previous insufficient cervical cells Ordered: 07/03/2024[facility] Healthcare Work Phone: comment on above:Ordered: 07/03/2024ytology Cervical or vaginal smear or scraping studyPap Smear Pathology and Cytology Routine Well woman exam with routine gynecological exam Ordered: 07/04/2025[facility] Healthcare Comment on above:Ordered: 07/04/2025Hemoglobin A1c/Hemoglobin.total in Blood Hemoglobin A1c Lab Routine Missed menses , unspecified gestational age Ordered: 03/09/2025[facility] HealthcareComment on above:Ordered: 03/09/2025Hepatitis B virus surface Ag [Presence] in Serum or Plasma by ImmunoassayHepatitis B surface antigen Lab Routine Missed menses , unspecified gestational age Ordered: 03/09/2025[facility] HealthcareComment on above:Ordered: 03/09/2025Hepatitis C virus Ab [Presence] in Serum or Plasma by ImmunoassayHepatitis C antibody Lab Routine Missed menses , unspecified gestational age Ordered: 03/09[facility] HealthcareComment on above:Ordered: 03/09/2025HIV-1/HIV-2 antigen/antibody combination immunoassayHIV-1 and HIV-2 antibodies Lab Routine Missed menses , unspecified gestational age Ordered: 03/09/2025[facility] HealthcareComment on above:Ordered: 03/09/2025Reagin Ab [Presence] in Serum by RPRRPR Lab Routine Missed menses , unspecified gestational age Ordered: 03/09/2025[facility] HealthcareComment on above:Ordered: 03/09/2025Rubella antibody, IgGRubella antibody, IgG Lab Routine Missed menses , unspecified gestational age Ordered: 03/09/2025[facility] HealthcareComment on above:Ordered: 03/09/2025 Immunizations Immunization DateImmunizationNotesCare XilxoebgFnxvswjt74-76-8476tuamagbhy virus vaccine, unspecified formulationScott KAPLE [phone]-WqomjT[facility] Primary Ytxr64-32-2408 tetanus toxoid, unspecified formulationScott KAPLE [phone]-Iqcst[address] [place], [place] 7922006-27-2020 tetanus toxoid, reduced diphtheria toxoid, and acellular pertussis vaccine, adsorbedScott KAPLE [phone]-Eeyve[address] [place], [place] 3909709-14-2017 meningococcal ACWY vaccine, unspecified formulationScott KAPLE [phone]-Fmbsm[address] [place], [place] 7922009-14-2017 meningococcal B vaccine, fully recombinantScott KAPLE [phone]-Exhmm[address] [place], [place] [address]22009-12-2012 diphtheria, tetanus toxoids and acellular pertussis vaccineScott KAPLE [address] [place], [place] [address]-12-2012HPV, unspecified formulationScott KAPLE 736-2486Syictc-Nuthn[address] [place], [place] [address]009-12-2012 meningococcal ACWY vaccine, unspecified formulationScott KAPLE [phone]-Lankk[address] [place], [place] 79[address]005-27-2005DTaP, unspecified formulationScott KAPLE [phone]-Vshto[address] [place], [place] 7922005-27-2005 measles, mumps and rubella virus vaccineScott KAPLE 793-2851Ivkatu-Mprgf[address] [place], [place] 7922005-27-2005 poliovirus vaccine, unspecified formulationScott KAPLE [phone]-Dmqxp[address] [place], [place] 7922009-16-2003 diphtheria, tetanus toxoids and acellular pertussis vaccineScott KAPLE 275-1960Lbiijw-Cykan[address] [place], [place] 7922009-16-2003 haemophilus influenzae type b vaccine, PRP-OMP conjugateScott KAPLE 469-3779Hspvwf-Mpvde[address] [place], [place] 7922009-16-2003 hepatitis B vaccine, pediatric or pediatric/adolescent dosageScott KAPLE 878-5128Tnmsld-Tsygp[address] [place], [place] [address]22009-16-2003 poliovirus vaccine, unspecified formulationScott KAPLE 151-6825Zplrft-Pqttb[address] [place] [address] Primary Euuv21-08-3038 varicella virus vaccineScott KAPLE 049-1372Zorbei-Raxzp[address] [place] [address] Primary Agga68-57-2654 hepatitis B vaccine, pediatric or pediatric/adolescent dosageScott KAPLE 402-2723Cbjlby-Bbawc[address] [place] [address] Primary Jgna83-31-8481 measles, mumps and rubella virus vaccineScott KAPLE 174-0781Vtykka-Lriru[address] [place] [address] Primary Cfgl89-70-9103 varicella virus vaccineScott KAPLE 500-1175Usmbwb-Hzqdl[address] [place] [address] Primary Nnhk94-00-1951 hepatitis B vaccine, pediatric or pediatric/adolescent dosageScott KAPLE 283-8681Ixegep-Jwgiu[address] [place], [place] 7922002-29-2000 poliovirus vaccine, unspecified formulationScott KAPLE 594-0983Rrgxje-Uqxpu[address] [place] [address] Primary Zdyx37-36-3413 poliovirus vaccine, unspecified formulationScott KAPLE 928-7651Jvchnn-Jjmwx[address] [place] [address] Primary CareNEGATED: Highlighted row has not occurred!05-41-1043zlxqnyuha virus vaccine, unspecified formulationScott KAPLE [phone]-Xwivy[address] [place] [address] Primary Care Payers DatePayer CategoryPayerPolicy [id number] [facility] Member Subscriber Plan / Payer (Effective 2021-Present) Name: Alejo Overton Relation to Subscriber: Self Name: Alejo Overton PayerID: Not on file Type: Not on file Address: [facility] [address] [place] [id number] BCBS [id number] 2021-Present [phone] [facility] [address] [place] [id number] [id number] 2.16.840.1.340289.3.57[id number] 2.16.840.1.079381.3.57[id number] 2.16.840.1.494880.3.57[id number] 2.16.840.1.075946.3.57[id number] 2.16.840.1.116965.3.57[id number] 2.16.840.1.854347.3.57[id number] 2.16.840.1.356501.3.57[id number] 2.16.840.1.530388.3.57[id number] 2.16.840.1.114511.3.57[id number] 2.16.840.1.972817.3.57[id number] 2.16.840.1.773518.3.57[id number] 2.16.840.1.900740.3.57[id number] 2.16.840.1.002665.3.57[id number] 2.16.840.1.512356.3.57[id number] 2.16.840.1.908653.3.57[id number] 2.16.840.1.777079.3.579.2.1259 Social History DateTypeDetailFacilityStart: 01-14-2023 End: 29-79-4196Psddumu smoking statusNever smoked tobacco (finding)[facility] CareStart: 83-03-2118Frhqkdz smoking statusNeverOhiohealth [facility]in [facility] Primary CareStart: 07-03-2024 End: 98-81-0078Gcz Assigned At BirthFemalBlanchard Valley Health System [facility] Hospitaltart: 07-03-2024 End: 51-15-4540Gowwdfonj beverage intakeCurrent drinker of alcohol (finding)[facility] HealthcareStart: 07-03-2024 End: 81-23-1377Oftmsde of Social functionHEBER VALLEY MEDICAL CENTER HealthcareStart: 69-57-4077Tchbgsi CommentAlcohol: monthly or less. Caffeine: noneNOID HealthcareStart: 1999 Sex assigned at birthNot on [facility] HealthcareStart: 28-26-8684BjcdqasiuSGRR Healthcare Functional Status LmzdTvvcxxsnbtUpckcuNtnvcuhb58-61-6472Wmqbucyuhu StatusN/[facility] Primary Bjzw72-04-5325Mmzyfcdbmo StatusN/[facility] Primary Azkq13-54-6260Rkbvkkhmti StatusN/[facility] Primary Gjuk71-11-9680Fctdegnylf StatusN/[facility] Primary Care 14-56-6825Imywzobtsd StatusN/[facility] Primary Jpyp27-62-7165 Functional StatusN/[facility] Primary Ubmu33-57-3360Asfwlilgbl StatusN/[facility] Primary Lhav65-13-2630Dxadnmobtx StatusN/A [facility] Primary Hyes93-60-4883Smjqfxpjsw StatusN/AFOhioHealth [facility] Primary Yuuf57-18-1699Ffhhdcfqre StatusN/[facility] Primary Nozl85-12-5970Wgwqwvjutp StatusN/[facility] Primary Care Clinical Notes 01-14-2023 to 09-12-2025 Note Date & QhvrPwjtNiknpbqv61-73-8819 History of Present illness Narrative* MAITE Bravo - 09/12/2025 1:30 PM EST Reason for Appointment: Patient ID: Alejo Overton is a 25 y.o. female who presents for Routine Visit [...] reviewed. Vitals: Estimated body mass index is 36.23 kg/m as calculated from the following: Height as of 05/29/24: 5' 10 . Weight as of this encounter: 252 lb 8 oz. BP: 122/70 Patient's last menstrual period was 01/04/2025. Assessment/Plan ICD-10-CM 1. Third trimester ([facility]) Z34.93 POCT urinalysis dipstick manually resulted 2. 34 weeks gestation of ([facility]) Z3A.34 Return OB: Patient presents today for a routine obstetrics appointment. Patient is currently 34w2d . Patient states she is doing well [...] week for routine OB appointment. Documented by MAITE Bravo on behalf of: MAITE Bravo documented in this encounterEllett Memorial HospitalGuvrieujoc96-87-0103 History of Present illness Narrative* MAITE Bravo - 08/28/2025 1:50 PM EDT Reason for Appointment: Patient ID: Alejo Overton [...] reviewed. Vitals: Estimated body mass index is 35.13 kg/m as calculated from the following: Height as of 05/29/24: 5' 10 . Weight as of this encounter: 244 lb 12.8 oz. BP: 140/72 Patient's last menstrual period was 01/04/2025. Assessment/Plan ICD-10-CM 1. Third trimester ([facility] Z34.93 2. 32 weeks gestation of ([facility]) Z3A.32 POCT urinalysis dipstick manually resulted Return OB: Patient presents today for a routine obstetrics appointment. Patient is currently 32w1d . Patient states she is doing well [...] week for routine OB appointment. Documented by MAITE Bravo on behalf of: MAITE Bravo documented in this encounterEllett Memorial HospitalVrkrtzftri96-54-1455 History of Present illness Narrative* Kristy Goel NP - 08/15/2025 11:20 AM EDT Reason for Appointment: Patient ID: Alejo Overton [...] nursing note reviewed. Exam conducted with a washhouse hand present. Vitals: Estimated body mass index is 35.53 kg/m as calculated from the following: Height as of 05/29/24: 5' 10 . Weight as of this encounter: 247 lb 9.6 oz. BP: 122/74 Patient's last menstrual period was 01/04/2025. ASSESSMENT & PLAN ICD-10-CM 1. Third trimester ([facility]) Z34.93 2. 30 weeks gestation of ([facility]) Z3A.30 POCT urinalysis dipstick manually resulted Return OB: Patient presents today for a routine obstetrics appointment. Patient is currently 30w2d . Patient states she is doing well [...] by Kristy Goel NP on behalf of: Kristy Goel NP documented in this encounterEllett Memorial HospitalJtzgyasgzs50-72-2570 History of Present illness Narrative* MAITE Bravo - 08/01/2025 3:00 PM EDT Reason for Appointment: Patient ID: Alejo Overton [...] nursing note reviewed. Exam conducted with a washhouse hand present. Vitals: Estimated body mass index is 34.58 kg/m as calculated from the following: Height as of 05/29/24: 5' 10 . Weight as of this encounter: 241 lb. BP: 112/70 Patient's last menstrual period was 01/04/2025. ASSESSMENT & PLAN ICD-10-CM 1. Third trimester ([facility]) Z34.93 POCT urinalysis dipstick manually resulted 2. 28 weeks gestation of ([facility]) Z3A.28 Return OB: Patient presents today [...] by Kristy Goel NP on behalf of: MAITE Bravo documented in this encounterEllett Memorial HospitalHnfvdrhcdl88-60-2366 History of Present illness Narrative* Yesenia Pat LPN - 07/04/2025 2:50 PM EDT Reason for Appointment: Patient ID: Alejo Overton [...] nursing note reviewed. Exam conducted with a washhouse hand present. Vitals: Estimated body mass index is 33.83 kg/m as calculated from the following: Height as of 05/29/24: 5' 10 . Weight as of this encounter: 235 lb 12.8 oz. BP: 114/70 Patient's last menstrual period was 01/04/2025. ASSESSMENT & PLAN ICD-10-CM 1. Well woman exam with routine gynecological exam Z01.419 2. Vaginal discharge N89.8 3. STD exposure Z20.2 4. Second trimester ([facility]) Z34.92 POCT urinalysis dipstick manually resulted 5. 24 weeks gestation of ([facility]) Z3A.24 POCT urinalysis dipstick manually resulted Return OB/Annual Exam: Patient presents today for a annual exam/routine obstetrics appointment. Patient is currently 68v0kegeogrnt. Patient states she is doing well but [...] of: Jessie Al DO documented in this encounterEllett Memorial HospitalZoiiomqwgb08-03-6556 History of Present illness Narrative* MAITE Bravo - 06/05/2025 2:30 PM EDT Reason for Appointment: Patient ID: Alejo Overton [...] ASSESSMENT & PLAN ICD-10-CM 1. Second trimester ([facility]) Z34.92 2. 20 weeks gestation of ([facility]) Z3A.20 Return OB: Patient presents today [...] week for routine OB appointment. Documented by MAITE Bravo on behalf of: MAITE Bravo documented in this encounterEllett Memorial HospitalPtedhtujrz13-83-9128 History of Present illness Narrative* Yesenia Grantsagrario, DON - 05/08/2025 9:10 AM EDT Reason for Appointment: Patient ID: Alejo Overton [...] nursing note reviewed. Exam conducted with a washhouse hand present. Vitals: Estimated body mass index is 32.11 kg/m as calculated from the following: Height as of 05/29/24: 5' 10 . Weight as of this encounter: 223 lb 12.8 oz. BP: 118/72 Patient's last menstrual period was 01/04/2025. ASSESSMENT & PLAN ICD-10-CM 1. Second trimester ([facility]) Z34.92 POCT urinalysis dipstick manually resulted Alpha fetoprotein, maternal Alpha fetoprotein, maternal 2. 16 weeks gestation of ([facility]) Z3A.16 POCT urinalysis dipstick manually resulted Alpha fetoprotein, maternal Alpha fetoprotein, maternal 3. Screening, , for anatomic survey ([facility]) Z36.89 US OB 14+ weeks anatomy scan Patient presents today for a routine obstetrics appointment. Patient is currently 16w1d with a Estimated Date of Delivery: 10/22/25. Pt given msAFP order and anatomy scan order to have obtained. Pt to return in 4 weeks for scheduled OB appt. Documented by Yesenia Pat LPN on behalf of: Jessie Servando, DO documented in this encounterEllett Memorial HospitalJbiivyibfe96-91-6468 History of Present illness Narrative* Yvonne Brice - 04/09/2025 3:10 PM EDT Reason for Appointment: Patient ID: Alejo Overton [...] nursing note reviewed. Exam conducted with a washhouse hand present. Vitals: Estimated body mass index is [...] or undercooked meat, and stay away from [facility]. Patient has been consulted regarding any further do's and don'tsof . Patient voiced understanding and all questions and concerns were answered. Informed maite ire[place] that she would be due to have [...] Shannon Tomas LPN on behalf of: Gabby Contreras PA-C documented in this encounterEllett Memorial HospitalDkexmfryni45-83-8792 History of Present illness Narrative* Jacinda Storm LPN - 03/09/2025 9:00 AM EDT Reason for Appointment: Patient ID: Alejo Overton [...] drink 6-8 glasses of water a day, eatno raw or undercooked meat, and stay away from [facility]. Patient has also been advised to not change litter boxes and eat 6 small meals a day. Patient has been consulted regarding the do's and don'ts ofpregnancy. Patient was given labs and all questions [...] by: Jacinda Storm LPN documented in this encounterEllett Memorial HospitalDgnjiujhoh89-51-8847 History of Present illness Narrative* Shannon DON Tomas - 11/20/2024 1:30 PM ESTAssociated Order(s): Insertion/Removal of Contraceptive Capsule Post-Procedure Diagnose(s): [...] nursing note reviewed. Exam conducted with a washhouse hand present. Vitals: Estimated body mass index is [...] and the incision was covered with gauze. Post- procedure care was reviewed and patient will continue with proposed plan of care. Patient wasadvised to call office with any questions or concerns. Follow Up: Patient is to return to the office as needed for any routine appointments. Documented by Shannon Tomas LPN on behalf of: Jessie Al DO documented in this encounterEllett Memorial HospitalZtaycskhyd69-20-1612 History of Present illness Narrative* Shannon Tomas LPN - 07/03/2024 2:20 PM EDT Reason for Appointment: Patient ID: Alejo Overton [...] nursing note reviewed. Exam conducted with a washhouse hand present. Vitals: Estimated body mass index is [...] by Shannon Tomas LPN on behalf of: Jessei Al DO documented in this encounterEllett Memorial HospitalDsinvyudiq12-49-4924 Hospital Discharge instructions Patient Education 05/04/2024 08:46:07 Exercising to Lose Weight Exercising to Lose Weight Getting regular exercise is important for everyone. It is especially important if you are overweight. Being overweight increases your risk of heart disease, stroke, diabetes, high blood pressure, andseveral types of cancer. Exercising, and reducing the [...] of moderate-intensity exercise a week to maintain theirbody weight. Vigorous-intensity exercise Vigorous-intensity exercise is any [...] you need and what types of activities aresafe for you. Nutrition Make changes to your diet as told by your health care provider or diet and food and nutrition professor (dietitian). This may include: ?Eating fewer calories. ?Eating more protein. ?Eating less unhealthy fats. ?Eating a diet that includes fresh fruits and vegetables, whole grains, low-fat dairy products, andlean protein. ?Avoiding foods with added fat, salt, [...] provider. Document Revised: 12/21/2021 Document Reviewed: 12/21/2021 [employer] Patient Education 2022 [employer]. Follow Up Care 02/03/2024 08:31:57 With:AURELIO BAJWA FAAFP, [place] Santo, DAE, PED Address: [place] [address]- When:Within 6 Month(s) [facility] 06-27-2024 NotePatient Education Physical Medicine and Rehabilitation Exercising to Lose Weight Getting regular exercise is important for everyone. It is especially important if you are overweight. Being overweight increases your risk of heart disease, stroke, diabetes, high blood pressure, andseveral types of cancer. Exercising, and reducing the [...] of moderate-intensity exercise a week to maintain theirbody weight. Vigorous-intensity exercise Vigorous-intensity exercise is any [...] you need and what types of activities aresafe for you. Nutrition ? Make changes to your diet as told by your health care provider or diet and food and nutrition professor (dietitian). This may include: ? Eating fewer [...] goals. Your health care provider can help youmake an exercise plan that works for you. [...] as helpful as long, structured periods of exercise.If you have trouble finding time to exercise, [...] Summary ? Getting r (more content not included)...[facility]05-23-2024 Hospital Discharge instructions Patient Education 03/30/2024 08:42:21 BMI for Adults BMI for Adults What is BMI? Body mass index (BMI) is a number that is calculated from a person's weight and height. BMI can help estimate how much of a person's weight is composed of fat. BMI does not measure body fat directly.Rather, it is an alternative to procedures that [...] your height. Both height and weight are measured,and the BMI is calculated from those numbers. This can be done either in [place] or metric measurements. Note that charts and online BMI calculators are available to help you find your BMI quickly and easily without having to do these calculations yourself. To calculate your BMI in [place] measurements: 1.Measure your weight in pounds [...] inches squared measurement is 70 inches x 70inches, which equals 4,900 inches squared. 4.Divide the [...] muscular build, such as an athlete, may havea BMI that is higher than 24.9. In cases like these, BMI is not an accurate measure of body fat. To determine if excess body fat is the cause of a BMI of 25 or higher, further assessments may needto be done by a health care provider. BMI is usually interpreted in the same way for men and women. Where to find more information For more information about BMI, including tools to quickly calculate your BMI, go to these websites: Centers for Disease Control and Prevention: www.cdc.gov [place] [employer]: www.heart.org National Heart, Lung, and Blood [place]: www.nhlbi.nih.gov Summary Body mass index (BMI) is a number that is calculated from a person's weight and height. BMI may help estimate how much of a person's weight is composed of fat. BMI can help identify thosewho may be at higher risk for certain medical problems. BMI can be measured using [place]ian measurements or metric measurements. BMI charts are used to identify whether you are underweight, normal weight, overweight, or obese. This information is not intended to replace advice given to you by your health care provider. Make sure you discuss any questions you have with your health care provider. Document Revised: 07/17/2020 Document Reviewed: 05/24/2020 [employer] Patient Education 2022 [employer]. Follow Up Care 02/03/2024 08:30:45 With:AURELIO BAJWA FAAFP, DAE Newsome, PED Address: [address] [place] [address]- When:Within 1 Month(s) [facility] 04-29-2024 Hospital Discharge instructions Patient Education 03/06/2024 08:18:40 Exercising to Lose Weight Exercising to Lose Weight Getting regular exercise is important for everyone. It is especially important if you are overweight. Being overweight increases your risk of heart disease, stroke, diabetes, high blood pressure, andseveral types of cancer. Exercising, and reducing the [...] of moderate-intensity exercise a week to maintain theirbody weight. Vigorous-intensity exercise Vigorous-intensity exercise is any [...] you need and what types of activities aresafe for you. Nutrition Make changes to your diet as told by your health care provider or diet and food and nutrition professor (dietitian). This may include: ?Eating fewer calories. ?Eating more protein. ?Eating less unhealthy fats. ?Eating a diet that includes fresh fruits and vegetables, whole grains, low-fat dairy products, andlean protein. ?Avoiding foods with added fat, salt, [...] provider. Document Revised: 12/21/2021 Document Reviewed: 12/21/2021 [employer] Patient Education 2022 [employer]. Follow Up Care 02/03/2024 08:29:28 With:AURELIO BAJWA FAAFP, [place] Santo, DAE, PED Address: [address] [place] [address]- When:Within 1 Month(s) [facility] 03-28-2024 Hospital Discharge instructions Patient Education 02/03/2024 08:29:12 Exercising to Lose Weight Exercising to Lose Weight Getting regular exercise is important for everyone. It is especially important if you are overweight. Being overweight increases your risk of heart disease, stroke, diabetes, high blood pressure, andseveral types of cancer. Exercising, and reducing the [...] of moderate-intensity exercise a week to maintain theirbody weight. Vigorous-intensity exercise Vigorous-intensity exercise is any [...] you need and what types of activities aresafe for you. Nutrition Make changes to your diet as told by your health care provider or diet and food and nutrition professor (dietitian). This may include: ?Eating fewer calories. ?Eating more protein. ?Eating less unhealthy fats. ?Eating a diet that includes fresh fruits and vegetables, whole grains, low-fat dairy products, andlean protein. ?Avoiding foods with added fat, salt, [...] provider. Document Revised: 12/21/2021 Document Reviewed: 12/21/2021 [employer] Patient Education 2022 [employer]. Follow Up Care 11/04/2023 08:09:51 With:AURELIO BAJWA FAAFP, DAE Newsome, PED Address: [address], [place] [address]- When:Within 1 Month(s) [facility] 02-29-2024 Hospital Discharge instructions Patient Education 01/06/2024 08:50:56 Budget-Friendly Healthy [...] such as herbs, spices, flour, pasta, nuts, anddried fruit. Buy fruits and vegetables that are in season. Prices are usually lower on in- season produce. Look at the unit linda on [...] frozen fruits, and frozen vegetables. Avoid buying sgjbw-br-swa foods, such as pre-cut fruits and vegetables and pre-made salads. If possible, shop around to discover where you can find the best prices. Consider other retailers such as [employer] stores, larger wholesale stores, local fruit and vegetable [employer], and [employer] markets. Do not shop when you are hungry. If you shop while hungry, it may be hard to stick to your list andbudget. Resist impulse buying. Use your grocery list [...] spend at the store, the more money youare likely to spend. To save money when choosing more expensive foods like meats and dairy: ?Choose cheaper cuts of meat, such as bone-in chicken thighs and drumsticks instead of skinless andboneless chicken. When you are ready to prepare [...] store. If you have a smart phone, youcould use your phone to create your shopping list. Plan meals and snacks according to a grocery list and budget you create. Use leftovers in your meal plan for the week. Look for recipes where you can cook once and make enough food for two meals. Prepare budget-friendly types of meals like stews, casseroles, and stir-ohpe dishes. Try some meatless meals or try [...] include buying generic brands, using coupons only forfoods you normally buy, and buying healthy items from the bulk bins when available. Tips for buying cheaper food to replace expensive food include choosing cheaper, lean cuts of meat,and buying dried beans and peas. This information is not intended to replace advice given to you by your health care provider. Make sure you discuss any questions you have with your health care provider. Document Revised: 08/07/2021 Document Reviewed: 08/07/2021 [employer] Patient Education 2022 [employer]. Follow Up Care 11/04/2023 08:09:40 With:AURELIO BAJWA FAAFP, DAE Newsome, PED Address: [address], [facility] [place] [id number]- When:Within 1 Month(s) [facility] 01-29-2024 Hospital Discharge instructions Patient Education 12/06/2023 08:42:54 Mole Excision [...] including vitamins, herbs, eye drops, creams, and ogpt-syl-rwfyhwy medicines. Any problems you or family members [...] and water are not available, use hand photograph developer. ?Change your dressing as told by your [...] or a bad smell. General instructions Take qozj-vxx-nwxrxjr and prescription medicines only as told by [...] (local anesthetic) during the procedure to remove themole. After the procedure, it is common to have mild pain, redness, and swelling. Wash your hands with soap and water for at least 20 seconds before and after you change your bandage (dressing). If soap and water are not available, use hand photograph developer. Contact your health care provider if you have problems or questions. This information is not intended to replace advice given to you by your health care provider. Make sure you discuss any questions you have with your health care provider. Document Revised: 07/16/2022 Document Reviewed: 07/16/2022 [employer] Patient Education 2022 [employer]. Follow Up Care 11/04/2023 08:09:24 With:AURELIO BAJWA FAAFP, DAE Newsome, PED Address: [address] [place] [address] [place] [address]- When:Within 1 Month(s) [facility] 12-28-2023 Hospital Discharge instructions Patient Education 11/04/2023 07:55:50 Exercising to Lose Weight Exercising to Lose Weight Getting regular exercise is important for everyone. It is especially important if you are overweight. Being overweight increases your risk of heart disease, stroke, diabetes, high blood pressure, andseveral types of cancer. Exercising, and reducing the [...] of moderate-intensity exercise a week to maintain theirbody weight. Vigorous-intensity exercise Vigorous-intensity exercise is any [...] you need and what types of activities aresafe for you. Nutrition Make changes to your diet as told by your health care provider or diet and food and nutrition professor (dietitian). This may include: ?Eating fewer calories. ?Eating more protein. ?Eating less unhealthy fats. ?Eating a diet that includes fresh fruits and vegetables, whole grains, low-fat dairy products, andlean protein. ?Avoiding foods with added fat, salt, [...] provider. Document Revised: 12/21/2021 Document Reviewed: 12/21/2021 [employer] Patient Education 2022 [employer]. Follow Up Care 05/03/2023 08:02:20 With:AURELIO BAJWA FAAFP, Cleveland Santo, DAE, PED Address: [address], [place] [address]- When:Within 1 Month(s) [facility] 06-26-2023 Hospital Discharge instructions Patient Education 05/03/2023 07:53:32 Exercising to Lose Weight Exercising to Lose Weight Getting regular exercise is important for everyone. It is especially important if you are overweight. Being overweight increases your risk of heart disease, stroke, diabetes, high blood pressure, andseveral types of cancer. Exercising, and reducing the [...] of moderate-intensity exercise a week to maintain theirbody weight. Vigorous-intensity exercise Vigorous-intensity exercise is any [...] you need and what types of activities aresafe for you. Nutrition Make changes to your diet as told by your health care provider or diet and food and nutrition professor (dietitian). This may include: ?Eating fewer calories. ?Eating more protein. ?Eating less unhealthy fats. ?Eating a diet that includes fresh fruits and vegetables, whole grains, low-fat dairy products, andlean protein. ?Avoiding foods with added fat, salt, [...] provider. Document Revised: 12/21/2021 Document Reviewed: 12/21/2021 [employer] Patient Education 2022 [employer]. Follow Up Care 01/22/2023 13:52:08 With:AURELIO BAJWA FAAFP, Cleveland Satno, DAE, PED Address: [place] [address]- When:Within 6 Month(s) [facility] 04-17-2023 Hospital Discharge instructions Patient Education 02/22/2023 15:09:52 Budget-Friendly Healthy [...] such as herbs, spices, flour, pasta, nuts, anddried fruit. Buy fruits and vegetables that are in season. Prices are usually lower on in- season produce. Look at the unit linda on [...] frozen fruits, and frozen vegetables. Avoid buying ndink-jp-fey foods, such as pre-cut fruits and vegetables and pre-made salads. If possible, shop around to discover where you can find the best prices. Consider other retailers such as [employer] stores, larger wholesale stores, local fruit and vegetable [employer], and [employer] markets. Do not shop when you are hungry. If you shop while hungry, it may be hard to stick to your list andbudget. Resist impulse buying. Use your grocery list [...] spend at the store, the more money youare likely to spend. To save money when choosing more expensive foods like meats and dairy: ?Choose cheaper cuts of meat, such as bone-in chicken thighs and drumsticks instead of skinless andboneless chicken. When you are ready to prepare [...] store. If you have a smart phone, youcould use your phone to create your shopping [...] include buying generic brands, using coupons only forfoods you normally buy, and buying healthy items from the bulk bins when available. Tips for buying cheaper food to replace expensive food include choosing cheaper, lean cuts of meat,and buying dried beans and peas. This information is not intended to replace advice given to you by your health care provider. Make sure you discuss any questions you have with your health care provider. Document Released: 06/28/2015 Document Revised: 10/26/2018 Document Reviewed: 10/26/2018 [employer] Patient Education 2020 [employer] Follow Up Care 01/22/2023 13:49:16 With:AURELIO BAJWA FAAFP, Cleveland Santo, DAE, PED Address: [address] [place] [address] [place] [address]- When:Within 1 Month(s) [facility] 03-17-2023 Hospital Discharge instructions Patient Education 01/22/2023 13:40:13 Exercising to Lose Weight Exercising to Lose Weight Exercise is structured, repetitive physical activity to improve fitness and health. Getting regularexercise is important for everyone. It is especially important if you are overweight. Being overweight increases your risk of heart disease, stroke, diabetes, high blood pressure, and several types of cancer. Reducing your calorie intake and exercising can help you lose weight. Exercise is usually categorized as moderate or vigorous intensity. To lose weight, most people needto do a certain amount of moderate-intensity or [...] you eat, you lose weight. Exercise also reducesbody fat and builds muscle. The more muscle [...] you need and what types of activities aresafe for you. What actions can I take to lose weight? Nutrition Make changes to your diet as told by your health care provider or diet and food and nutrition professor (dietitian). This may include: ?Eating fewer calories. ?Eating more protein. ?Eating less unhealthy fats. ?Eating a diet that includes fresh fruits and vegetables, whole grains, low-fat dairy products, andlean protein. ?Avoiding foods with added fat, salt, [...] helpful as long structured periods of exercise. Ifyou have trouble finding time to exercise, try [...] 11/27/2011 Document Revised: 11/07/2018 Document Reviewed: 11/07/2018 [employer] Patient Education 2020 [employer]. Follow Up Care 01/21/2023 16:09:28 With:AURELIO BAJWA FAAFP, Cleveland Santo, DAE, PED Address: [address], [place] [address]- When:Within 1 Month(s) [facility] 03-09-2023 Evaluation + Plan note Future Scheduled Tests Laboratory* Glucose Fasting 01/14/23 * Lipid Panel 01/14/23 [facility] 03-09-2023 Hospital Discharge instructions Patient Education 01/14/2023 08:17:55 Budget-Friendly Healthy [...] such as herbs, spices, flour, pasta, nuts, anddried fruit. Buy fruits and vegetables that are in season. Prices are usually lower on in- season produce. Look at the unit linda on [...] frozen fruits, and frozen vegetables. Avoid buying brnww-xz-qtp foods, such as pre-cut fruits and vegetables and pre-made salads. If possible, shop around to discover where you can find the best prices. Consider other retailers such as [employer] stores, larger wholesale stores, local fruit and vegetable [employer], and [employer] markets. Do not shop when you are hungry. If you shop while hungry, it may be hard to stick to your list andbudget. Resist impulse buying. Use your grocery list [...] spend at the store, the more money youare likely to spend. To save money when choosing more expensive foods like meats and dairy: ?Choose cheaper cuts of meat, such as bone-in chicken thighs and drumsticks instead of skinless andboneless chicken. When you are ready to prepare [...] store. If you have a smart phone, youcould use your phone to create your shopping [...] include buying generic brands, using coupons only forfoods you normally buy, and buying healthy items from the bulk bins when available. Tips for buying cheaper food to replace expensive food include choosing cheaper, lean cuts of meat,and buying dried beans and peas. This information is not intended to replace advice given to you by your health care provider. Make sure you discuss any questions you have with your health care provider. Document Released: 06/28/2015 Document Revised: 10/26/2018 Document Reviewed: 10/26/2018 [employer] Patient Education 2020 [employer]. Follow Up Care 12/01/2022 10:38:14 With:Cleveland RAY DO, FAAFP, FAM, PED Address: [place] [address]- When:Within 1 Year(s) [facility] Evaluation + Plan note Future Appointments Appointment Date:02/22/2023 02:40:00 PM Scheduled Provider:Cleveland RAY DO, FAAFP Location:[facility] Appointment Type:FM Open Appointment Date:03/26/2023 01:20:00 PM Scheduled Provider:Cleveland RAY DO, FAAFP Location:[facility] Appointment Type:FM Open Appointment Date:04/30/2023 01:20:00 PM Scheduled Provider:Cleveland RAY DO, FAAFP Location:[facility] Appointment Type: Open [facility] Evaluation + Plan note Future Appointments Appointment Date:03/26/2023 01:20:00 PM Scheduled Provider:Cleveland RAY DO, FAAFP Location:[facility] Appointment Type: Open Appointment Date:04/30/2023 01:20:00 PM Scheduled Provider:Cleveland RAY DO, FAAFP Location:[facility] Appointment Type: Open [facility] Evaluation + Plan note Future Appointments Appointment Date:11/04/2023 07:40:00 AM Scheduled Provider:Cleveland RAY DO, FAAFP Location:[facility] Appointment Type: Open [facility] Evaluation + Plan note Future Appointments Appointment Date:12/06/2023 08:20:00 AM Scheduled Provider:Cleveland RAY DO, FAAFP Location:[facility] Appointment Type:FM Open Appointment Date:01/06/2024 08:20:00 AM Scheduled Provider:Cleveland RAY DO, FAAFP Location:[facility] Appointment Type:FM Open Appointment Date:02/03/2024 08:00:00 AM Scheduled Provider:Cleveland RAY DO, FAAFP Location:[facility] Appointment Type:[facility] Primary Care evaluation + Plan note Future Appointments Appointment Date:01/06/2024 08:20:00 AM Scheduled Provider:Cleveland RAY DO, FAAFP Location:[facility] Appointment Type: Open Appointment Date:02/03/2024 08:00:00 AM Scheduled Provider:Cleveland RAY DO, FAAFP Location:[facility] Appointment Type:[facility] Primary Care Evaluation + Plan note Future Appointments Appointment Date:02/03/2024 08:00:00 AM Scheduled Provider:Cleveland RAY DO, FAAFP Location:[facility] Appointment Type:[facility] Primary Care evaluation + Plan note Future Appointments Appointment Date:03/06/2024 07:40:00 AM Scheduled Provider:Cleveland RAY DO, FAAFP Location:[facility] Appointment Type: Open Appointment Date:03/30/2024 08:20:00 AM Scheduled Provider:Cleveland RAY DO, FAAFP Location:[facility] Appointment Type: Open Appointment Date:05/04/2024 08:20:00 AM Scheduled Provider:Cleveland RAY DO, FAAFP Location:[facility] Appointment Type:[facility] Primary Care evaluation + Plan note Future Appointments Appointment Date:03/30/2024 08:20:00 AM Scheduled Provider:Cleveland RAY DO, FAAFP Location:[facility] Appointment Type: Open Appointment Date:05/04/2024 08:20:00 AM Scheduled Provider:Cleveland RAY DO, FAAFP Location:[facility] Appointment Type:[facility] Primary Care evaluation + Plan note Future Appointments Appointment Date:05/04/2024 08:20:00 AM Scheduled Provider:Cleveland RAY DO, FAAFP Location:[facility] Appointment Type: Open [facility] Evaluation note* Diagnosis Encounter for repeat Pap smear due [...] (HHS-HCC) state, incidental 16 weeks gestation of (HHS-HCC) Screening, , for anatomic survey ([facility]) Encounter for anatomic survey [facility] Diagnosis Second trimester (HHS-HCC) state, incidental 20 weeks gestation of (HHS-HCC) Encounter for follow-up ultrasound of anatomy ([facility]) [facility]* Diagnosis Well woman exam with routine gynecological exam Routine gynecological examination Vaginal discharge Leukorrhea, not specified as infective STD exposure Second trimester (HHS-HCC) state, incidental 24 weeks gestation of (HHS-HCC) Diabetes mellitus screening Screening for diabetes mellitus [facility]* Diagnosis size inconsistent with dates (HHS-HCC)- Primary Third trimester (HHS-HCC) state, incidental 28 weeks gestation of (HHS-HCC) [facility]* Diagnosis Third trimester (HHS-HCC) state, incidental 30 weeks gestation of (HHS-HCC) [facility]* Diagnosis Third trimester (HHS-HCC) state, incidental 32 weeks gestation of (HHS-HCC) [facility]* Diagnosis Third trimester (HHS-HCC) state, incidental 34 weeks gestation of (HHS-HCC) [facility] Narrative No data available for this section [facility] Hospital Discharge instructions No data available for this section [facility] data available for this section [facility] Summary Purpose Family History No Family History Records Found Advance Directives No Advanced Directives Records FoundNo Advanced Directives Records Found Additional Source Comments Patient Care team informatio n (unrecognized section and content) Team MemberRelationshipSpecialtyStart DateEnd Date Cleveland Ray MD [address] [place] [address] PCP - [facility]05/27/23Te MemberRelationshipSpecialtyStart DateEnd Date Cleveland Ray MD [address] [place] [address] PCP - [facility] Medicine05/27/23Te MemberRelationshipSpecialtyStart DateEnd Date Cleveland Ray MD [address] [place] [address] PCP - [facility]05/27/23Team MemberRelationshipSpecialtyStart DateEnd Date Cleveland Ray MD [address] [place] [address] PCP - [facility] Medicine05/27/23Team MemberRelationshipSpecialtyStart DateEnd Date Cleveland Ray MD [address] [place] [address] PCP - [facility] Medicine05/27/23Team MemberRelationshipSpecialtyStart DateEnd Date Cleveland Ray MD [address] [place] [address] PCP - [facility] Medicine05/27/23Team MemberRelationshipSpecialtyStart DateEnd Date Cleveland Ray MD [address] [place] [address] PCP - [facility]05/27/23Te MemberRelationshipSpecialtyStart DateEnd Date Cleveland Ray MD [address] [place] [address] PCP - [facility]05/27/23Te MemberRelationshipSpecialtyStart DateEnd Date Cleveland Ray MD [address] [place] [address] PCP - [facility]05/27/23 Reason for Visit (unrecogniz ed section and content) ReasonCommentsWell Women VisitReasonCommentsNexplanon RemovalReasonComments AmenorrheaReasonCommentsRoutine Visit INFORMATION SOURCE (unrecogn ized section and content) DATE CREATED AUTHOR 01/31/2025 [facility] DATE CREATED AUTHOR AUTHOR'S GLENDA RALPHION 09/14/2025 [facility] EPIC FOR RECORDS PERTAINING TO PATIENTS [...] BE BASED ON THE PRIMARY CLINICAL RECORDS. [employer] provides no warranty or guarantee of the accuracy or completeness of information in this document.
== END 2025-09-27 15:50 | disposition home or self-care (01) ==
LOC: LAB 15:49
PROVIDERS: Visit Provider Obstetrics & Gynecology
DX: Z34.93 Encounter for supervision of normal pregnancy, unspecified, third trimester (principal); Z3A.36 36 weeks gestation of pregnancy
CPT/HCPCS: 87081

== ENCOUNTER 2025-10-22 19:51 | Outpatient (OUT) | payer BC, SELFPAY ==
--- OUTSIDE RECORDS SUMMARY | 2025-10-09 10:00 | XMS_ITS | Encounter Summary ---
Author Organization [facility] Address [address] [place] [address] Care Team Providers Care Network Controller Name Role Phone Mc Ray MD Primary Care Provider [phone] Reason for Visit * ReasonCommentsRoutine Visit Encounter Details DateTypeDepartmentCare Team (Latest Contact Info)Knugyvwltsd87/02/2025 10:00 AM ESTRoutine [facility] [address] [place] [phone] Alexsander Al DO [address] [place], [place] [id number] 38 weeks gestation of ([facility]); Third trimester ([facility]) Social History Tobacco UseTypesPacks/DayYears UsedDateSmoking Tobacco: NeverAlcohol UseStandard Drinks/WeekCommentsYes0 (1 standard drink = 0.6 oz pure alcohol)Alcohol: monthly or less. Caffeine: noneEstimated Date of ScdtzqibBvqxrnkyBjq27/15/2025 Based on UltrasoundSex and Gender InformationValueDate RecordedSex Assigned at BirthNot on fileLegal MbcHkqvlv68/15/2023 8:15 PM EDTGender IdentityNot on file Sexual OrientationNot on filedocumented as of this encounter Last Filed Vital Signs Vital SignReadingTime TakenCommentsBlood Jhugyqra258/7810/09/2025 10:08 AM EST Pulse--Temperature--Respiratory Rate--Oxygen Saturation--Inhaled Oxygen Concentration--Dvmmwb186 kg (258 lb)10/09/2025 10:08 AM ESTHeight--Body Mass Index37.0207 9:13 AM EDTdocumented in this encounter Progress Notes * Yesenia Pat, MINESWEEPING OFFICER - 10/09/2025 10:00 AM EST Reason for Appointment: Patient ID: Janet Stock is a 25 y.o. female who presents for Routine Visit Patient presents today for Return OB appointment. MEDICATIONS Current Outpatient Medications Medication Instructions Vit w/Gd-Lstsdshqz-EM (PNV PO) 1 tablet, Daily in the morning ALLERGIES No Known Allergies PROBLEMS Active Ambulatory [...] nursing note reviewed. Exam conducted with a cement loader present. Vitals: Estimated body mass index is 37.02 kg/m?? as calculated from the following: Height as of 05/29/24: 5' 10 . Weight as of this encounter: 258 lb. BP: 120/78 Patient's last menstrual period was 01/04/2025. Assessment/Plan ICD-10-CM 1. 38 weeks gestation of ([facility]) Z3A.38 POCT urinalysis dipstick manually resulted 2. Third trimester ([facility]) Z34.93 POCT urinalysis dipstick manually resulted Assessment/Plan Return OB: Patient presents today for a routine obstetrics appointment. Patient is currently 38w1d . Patient states she is doing well but has complaints of being tired due to current . Patient has verbalizes frequent movement. labor precautions was discussed/given and patient was instructed to perform kick counts three times a day. Cervical check performed pt not dilated. Pt to be induced with cytotec 10/27/25 at 1830. Orders Placed This Encounter Procedures POCT urinalysis dipstick manually resulted Follow Up: Patient is to return to office in 1 week for routine OB appointment. Documented by Yesenia Pat LPN on behalf of: Alexsander Al DO documented in this encounter Plan of Treatment DateTypeDepartmentCare Team (Latest Contact Info)Zayhtefwcvm52/17/2025 2:00 PM ESTRoutine [facility] [address] [place] [address] Alexsander Al DO [address] [place] [address] documented as of this encounter Procedures Procedure NamePriorityDate/TimeAssociated DiagnosisCommentsPOCT URINALYSIS ATFMGFUSKvxjcep20/02/2025 10:13 AM EST 38 weeks gestation of ([facility]) Third trimester ([facility]) documented in this encounter Results * (ABNORMAL) POCT urinalysis dipstick manually resulted (10/09/2025 10:13 AM EST)ComponentValueRef RangeTest MethodAnalysis TimePerformed AtPathologist SignatureColor, UAYellowClarity, UAClearGlucose, UANegativeNegative - 1999(110) ++++ mg/dLBilirubin, UANegativeNegative - 4(70) +++ mg/dLKetones, UA NegativeNegative - 160(16) ++++ mg/dLSpec Grav, UA1.0201 - 1.03Blood, UA NegativeNegative - 50 Ming/mcLpH, UA6.05 - 9Protein, UANegativeNegative - 1999(20) ++++ mg/dLUrobilinogen, UA1.00.2 - 12 mg/dLLeukocytes, UA2+Negative - 500+++ Manpreet/mcLNitrite, UANegativeNegative - PositiveSpecimen (Source) Anatomical Location / LateralityCollection Method / VolumeCollection Time Received GdjeBmgbo77/02/2025 10:13 AM EST Narrative Authorizing ProviderResult TypeResult StatusCorey Servando DOPOINT OF CARE TEST ENTER/EDIT ORDERABLESFinal Result documented in this encounter Visit Diagnoses Diagnosis 38 weeks gestation of ([facility]) Third trimester ([facility]) state, incidental documented in this encounter Care Teams Team MemberRelationshipSpecialtyStart DateEnd Date Mc Ray MD [address] [place] [address] PCP - GeneralFamily Medicine05/27/23documented as of this encounter
--- OUTSIDE RECORDS SUMMARY | 2025-10-17 08:30 | XMS_ITS | Encounter Summary ---
Author Organization [facility] Address [address] [place] [address] Care Team Providers Care Ship Painter Helper Name Role Phone Mc Ray MD Primary Care Provider [phone] Reason for Visit * ReasonCommentsRoutine Visit Encounter Details DateTypeDepartmentCare Team (Latest Contact Info)Qxtgvxkjmbd48/10/2025 8:30 AM ESTRoutine [facility] [address] [place] [phone] Gabby Contreras PA [address] [place] [address] 39 weeks gestation of ([facility]); Post-term , 40-42 weeks of gestation ([facility]); Third trimester ([facility]) Social History Tobacco UseTypesPacks/DayYears UsedDateSmoking Tobacco: NeverAlcohol UseStandard Drinks/WeekCommentsYes0 (1 standard drink = 0.6 oz pure alcohol)Alcohol: monthly or less. Caffeine: noneEstimated Date of YmkjdzvnFmsqcegqCpw01/15/2025 Based on UltrasoundSex and Gender InformationValueDate RecordedSex Assigned at BirthNot on fileLegal PizDyekxi48/15/2023 8:15 PM EDTGender IdentityNot on file Sexual OrientationNot on filedocumented as of this encounter Last Filed Vital Signs Vital SignReadingTime TakenCommentsBlood Qtjxzmyp900/8012/08/2025 9:04 AM EST Pulse--Temperature--Respiratory Rate--Oxygen Saturation--Inhaled Oxygen Concentration--Adfwgn816 kg (257 lb)10/17/2025 9:04 AM ESTHeight--Body Mass Index36.8805/29/2024 9:13 AM EDTdocumented in this encounter Progress Notes * DARÍO Bravo - 10/17/2025 8:30 AM EST Reason for Appointment: Patient ID: Janet Stock is a 25 y.o. female who presents for Routine Visit Patient presents today for Return OB appointment. MEDICATIONS Current Outpatient Medications Medication Instructions Vit w/Rg-Jnvqwxbcz-YK (PNV PO) 1 tablet, Daily in the [...] Assessment/Plan ICD-10-CM 1. 39 weeks gestation of ([facility]) Z3A.39 POCT urinalysis dipstick manually resulted 2. Post-term , 40-42 weeks of gestation ([facility]) O48.0 US biophysical profile w nonstress test 3. Third trimester ([facility]) Z34.93 Assessment/Plan Return OB: Patient presents today [...] Plan of Treatment DateTypeDepartmentCare Team (Latest Contact Info)Yjkvfzkxviy40/17/2025 2:00 PM ESTRoutine [facility] [address] [place] [phone] Alexsander Al, [address] [place] [address] NameTypePriorityAssociated DiagnosesOrder ScheduleUS biophysical profile w non stress testImagingRoutine Post-term , 40-42 weeks of gestation ([facility]) Expected: 10/17/2025 (Approximate), Expires: 04/17/2026documented as of this encounter Procedures Procedure NamePriorityDate/TimeAssociated DiagnosisCommentsPOCT URINALYSIS FWIRBXXANmczejy27/10/2025 8:46 AM EST 39 weeks gestation of ([facility]) documented in this encounter Results * (ABNORMAL) [...] Location / LateralityCollection Method / VolumeCollection TimeReceived OtvhTmmzf51/10/2025 8:46 AM EST Narrative Authorizing ProviderResult TypeResult StatusAmy Ben PAPOINT OF CARE TEST ENTER/EDIT ORDERABLESFinal Result documented in this encounter Visit Diagnoses Diagnosis 39 weeks gestation of ([facility]) Post-term , 40-42 weeks of gestation ([facility]) Third trimester ([facility]) state, incidental documented in this encounter Care Teams Team MemberRelationshipSpecialtyStart DateEnd Date Kaple, Mc A, MD [address] [place] [address] PCP - GeneralFamily Medicine05/27/23documented as of this encounter
--- NOTE | 2025-10-22 19:55 | US_ITS ---
The [address] [address] Patient Name: ALEJO OVERTON MRN: [id number] date: 2000 Sex: F Assigned Patient Location: Current Patient Location: Accession/Order Number: [id number] Exam Date: 10/22/2025 19:58 Report Date: 10/23/2025 08:52 At the request of: CARI LINDER Procedure: US OB BPP w non-stress BIOPHYSICAL PROFILE: CLINICAL INFORMATION: POST-TERM O48.0 COMPARISON: None. There is a single live intrauterine gestation in cephalic presentation. The reported gestational age is 40 weeks 0 days. The heart rate measures 147 beats per minute. FINDINGS: TONE: 1 or more episodes of activity extension and flexion of extremity or opening and closing of the hand [Y] 2/2 GROSS BODY MOVEMENTS: 3 or more discrete body or limb movements [Y] 2/2 BREATHING MOVEMENTS: 1 or more episodes of breathing lasting at least 30 seconds [Y] 2/2 EMILY: A single deepest vertical pocket of amniotic fluid greater than 2 cm [Y] 2/2 EMILY: 19.9 cm. This is in upper normal range. Total score: 06/15 US/ OB BPP w non-stress IMPRESSION: NORMAL BIOPHYSICAL PROFILE Impression dictated by: Yesenia Rios M.D. 10/23/2025 8:52 AM Dictation Location: [place] [address] Electronically authenticated by: [id number] Y Date: 10/23/2025 08:52
--- OUTSIDE RECORDS SUMMARY | 2025-10-22 19:55 | XMS_ITS | Encounter Summary ---
Author Organization [facility] Address [address] [place] [address] Care Team Providers Care Field Artillery Senior Sergeant Name Role Phone Mc Ray MD Primary Care Provider [phone] Encounter Details DateTypeDepartmentCare Team (Latest Contact Info)Mhmenmvumpi94/10/2025amboo flowsheet [facility] [address] [place] [address] Gabby Contreras PA [address] [facility] [address] [place], [facility] Social History Tobacco UseTypesPacks/DayYears UsedDateSmoking Tobacco: NeverAlcohol UseStandard Drinks/WeekCommentsYes0 (1 standard drink = 0.6 oz pure alcohol)Alcohol: monthly or less. Caffeine: noneEstimated Date of ZxonzgjzIufabmyaKnd56/15/2025 Based on UltrasoundSex and Gender InformationValueDate RecordedSex Assigned at BirthNot on fileLegal ZetFluvlg40/15/2023 8:15 PM EDTGender IdentityNot on file Sexual OrientationNot on filedocumented as of this encounter Plan of Treatment DateTypeDepartmentCare Team (Latest Contact Info)Etntskwuzbm20/17/2025 2:00 PM ESTRoutine [facility] [address] [place] [address] Alexsander Al DO [address] [facility] [address] [place], [facility]11 documented as of this encounter Visit Diagnoses Not on filedocumented in this encounter Care Teams Team MemberRelationshipSpecialtyStart DateEnd Date Mc Ray MD [address] [place] [address] PCP - GeneralFamily Medicine05/27/23documented as of this encounter
--- OUTSIDE RECORDS SUMMARY | 2025-10-22 19:55 | XMS_ITS | Clinical Summary ---
Author Organization [facility] Address [address] [place] [address] Care Team Providers Care Assistant Construction Superintendent Name Role Phone Mc Ray MD Primary Care Provider [phone] Allergies No known active allergies Medications MedicationSigDispense QuantityRefillsLast FilledStart DateEnd DateStatus Vit w/Yi-Glpheoffv-TR (PNV PO) Take 1 tablet by mouth Daily in the MorningActive Encounters DateTypeDepartmentCare OjkkYmcwupmsxvp42/10/2025 8:30 AM ESTRoutine [facility] [address] [place] [address] [place] [address] Gabby Contreras PA 39 weeks gestation of ([facility]); Post-term , 40-42 weeks of gestation ([facility]); Third trimester ([facility])10/17/2025amb flowsheet [facility] [place] [address] Gabby Contreras PA 10/09/2025 10:00 AM [place] [address] Alexsander Al DO 38 weeks gestation of ([facility]); Third trimester ([facility])10/09/2025[place] [address] Alexsander Al, DO 10/02/2025 8:50 AM ESTRoutine [facility] LEGYN [address] [place] [address] Gabby Contreras PA 37 weeks gestation of ([facility]); Third trimester ([facility])10/02/2025amboo flowsheet [facility] OBGYKarne Paredes [facility] [place] [address] Gabby Contreras PA 09/27/2025 8:50 AM ESTRoutine [facility] Paredes [facility] [place] [address] Alexsander Al, DO Third trimester ([facility]); 36 weeks gestation of ([facility])09/27/2025linisync Result Encounter NOMS External Department Unsolicited Alexsander Al, DO 09/27/2025amboo flowsheet [facility] [address] [place] [address] [place] [address] Alexsander Al, DO 09/12/2025 1:30 PM ESTRoutine [facility] Paredes [facility] [place] [address] Gabyb Contreras PA Third trimester ([facility]); 34 weeks gestation of ([facility])09/12/2025amboo flowsheet [facility] [address] [facility] [facility] [place] [address] Gabby Contreras PA 08/28/2025 1:50 PM EDTRoutine [facility] [address] [facility] [facility] [place] [address] Gabby Contreras PA Third trimester ([facility]); 32 weeks gestation of ([facility])08/28/2025amboo flowsheet [facility] LEGYKaren [address] [facility] [facility] [place] [address] Gabby Contreras PA 08/15/2025 11:20 AM EDTRoutine [facility] [address] [facility] [facility] [place] [address] Kristy Goel NP Third trimester ([facility]); 30 weeks gestation of ([facility])5Clinisync Result Encounter NOMS External Department Unsolicited Kristy Goel NP 08/01/2025 3:00 PM EDTRoutine [facility] [address] [facility] [place] [address] Gabby Contreras PA size inconsistent with dates ([facility]) (Primary Dx); Third trimester ([facility]); 28 weeks gestation of ([facility])08/01/2025amboo flowsheet [facility] [address] [facility] [place] [address] Gabby Contreras PA from Last 3 Months Family History Medical HistoryRelationNameCommentsNo Known ProblemsBrother3 brothersCOVIDFather No Known ProblemsSister2 sistersRelationNameStatusCommentsBrotherAliveFather DeceasedMaternal GrandfatherAliveMaternal GrandmotherAliveMotherAlivePaternal GrandfatherDeceasedPaternal GrandmotherDeceasedSisterAlive Social History Tobacco UseTypesPacks/DayYears UsedDateSmoking Tobacco: Never Tobacco Cessation:Counseling Given: Not Answered Alcohol UseStandard Drinks/WeekCommentsYes0 (1 standard drink = 0.6 oz pure alcohol)Alcohol: monthly or less. Caffeine: noneEstimated Date of MamgvimxMmnwikybUih98/15/2025Based on UltrasoundSex and Gender InformationValue Date RecordedSex Assigned at BirthNot on fileLegal EqoPuxbbd69/15/2023 8:15 PM EDTGender IdentityNot on fileSexual OrientationNot on file Last Filed Vital Signs Vital SignReadingTime TakenCommentsBlood Nglcqnep864/8012/08/2025 9:04 AM EST Pulse--Temperature--Respiratory Rate--Oxygen Saturation--Inhaled Oxygen Concentration--Vkspkw656 kg (257 lb)10/17/2025 9:04 AM WTHAmgubn242.8 cm (5' 10 )05/29/2024 9:13 AM EDTBody Mass Index36.8805/29/2024 9:13 AM EDT Plan of Treatment DateTypeDepartmentCare Team (Latest Contact Info)Yfernphfljf95/17/2025 2:00 PM ESTRoutine [facility] [address] [facility] [place] [address] Alexsander Al DO [address] [place] [address] Procedures Procedure NamePriorityDate/TimeAssociated DiagnosisCommentsPOCT URINALYSIS PGWAMPCNHuikmcl87/10/2025 8:46 AM EST 39 weeks gestation of ([facility]) POCT URINALYSIS PEEEESFRSmhjzir63/02/2025 10:13 AM EST 38 weeks gestation of ([facility]) Third trimester ([facility]) STREP GP B CULTURE+DTNIOtzztmt41/20/2025 9:00 AM EST POCT URINALYSIS TJTQKWQKPsmzzlm78/05/2025 1:41 PM EST Third trimester ([facility]) POCT URINALYSIS EQTVXNFYWkknufi46/21/2025 2:07 PM EDT 32 weeks gestation of ([facility]) POCT URINALYSIS NOYLRVCBFlrquwj59/08/2025 11:31 AM EDT 30 weeks gestation of ([facility]) US OB LBQBGA2508/15/2025 7:51 AM EDT POCT URINALYSIS AQNAKFRQXiiodig95/24/2025 3:13 PM EDT Third trimester ([facility]) from Last 3 Months Results * (ABNORMAL) POCT urinalysis dipstick manually resulted (10/17/2025 8:46 AM EST) Only the most recent of6 resultswithin the time period is included. ComponentValueRef RangeTest MethodAnalysis TimePerformed AtPathologist Signature Color, UAYellowClarity, UAClearGlucose, UANegativeNegative - 2000(110) ++++ mg/dLBilirubin, UANegativeNegative - 4(70) +++ mg/dLKetones, UANegativeNegative - 160(16) ++++ mg/dLSpec Grav, UA1.0151 - 1.03Blood, UANegativeNegative - 50 Ming/mcLpH, UA7.05 - 9Protein, UAPositiveNegative - 2000(20) ++++ mg/dLComment: TraceUrobilinogen, UA0.20.2 - 12 mg/dLLeukocytes, UA2+Negative - 500+++ Manpreet/mcL Nitrite, UANegativeNegative - PositiveSpecimen (Source)Anatomical Location / LateralityCollection Method / VolumeCollection TimeReceived WwjvDgpzs19/10/2025 8:46 AM EST Narrative Authorizing ProviderResult TypeResult StatusAmy [facility] TEST ENTER/EDIT ORDERABLESFinal Result * STREP GP B CULTURE+RFLX (09/27/2025 9:00 AM EST)ComponentValueRef RangeTest MethodAnalysis TimePerformed AtPathologist SignatureSTREP GP B CULTURE+RFLX ??Strep Gp B Culture+Rflx TBHSTREP GP B CULTURE+RFLXNegativeTBHSTREP GP B CULTURE+RFLXCenters for Disease Control and Prevention (CDC) andTBHSTREP GP B CULTURE+RFLXAmerdameron hospital Congress of Obstetricians and GynecologistsTBHSTREP GP B CULTURE+RFLX(ACOG) guidelines for prevention of group BTBHSTREP GP B CULTURE+RFLXstreptococcal (GBS) disease specify co-collection ofTBHSTREP GP B CULTURE+RFLXa vaginal and rectal swab specimen to maximizeTBHSTREP GP B CULTURE+RFLXsensitivity of GBS detection. Per the CDC and ACOG,TBHSTREP GP B CULTURE+RFLXswabbing both the lower vagina and rectumTBHSTREP GP B CULTURE+RFLXsubstantially increases the yield of detectionTBHSTREP GP B CULTURE+RFLXcompared with sampling the vagina alone.TBH STREP GP B CULTURE+RFLXPenicillin G, ampicillin, or cefazolin are indicatedTBH STREP GP B CULTURE+RFLXfor intrapartum prophylaxis of GBSTBHSTREP GP B CULTURE+RFLXcolonization. Reflex susceptibility testing should beTBHSTREP GP B CULTURE+RFLXperformed prior to use of clindamycin only on GBSTBHSTREP GP B CULTURE+RFLXisolates from penicillin-allergic women who areTBHSTREP GP B CULTURE+RFLXconsidered a high risk for anaphylaxis. Treatment withTBHSTREP GP B CULTURE+RFLXvancomycin without additional testing is warranted ifTBHSTREP GP B CULTURE+RFLXresistance to clindamycin is noted.TBHSTREP GP B CULTURE+RFLX Performed at: [facility]coDeb[facility] Lung CenterTBHSTREP GP B CULTURE+[id number] [place], [place] [id number] GP B CULTURE+RFLXLab Director: Jason Barrera PhD, Phone: [phone] (Source)Anatomical Location / Laterality Collection Method / VolumeCollection TimeReceived Time09/27/2025 9:00 AM EST 09/27/2025 3:51 PM EST Narrative CLINISYKAMRYN - 10/01/2025 10:08 AM EST Authorizing ProviderResult TypeResult StatusCorey Servando DOLAB BLOOD ORDERABLES Final ResultPerforming OrganizationAddressCity/State/ZIP CodePhone Number CLINISYNC [facility] * OB GROWTH (08/15/2025 7:51 AM EDT)Anatomical RegionLateralityModalityOther Specimen (Source)Anatomical Location / LateralityCollection Method / Volume Collection TimeReceived Time08/15/2025 7:51 AM EDT Narrative 08/15/2025 7:54 AM EDT [facility] ?[address] ? [place] [address] ? Ultrasound Report ? Signed ? Patient: BROOKLYNN,ALEJO M ?MR#: [id number] ?? : 2000 ?Acct:[id number] ?? Age/Sex: 24 / F ?ADM Date: 10/07/25 ?? Loc: US ? Attending Tiffani Goel ? Ordering Physician: Kristy Goel ?? Date of Service: 08/14/25 ?? Procedure(s): US OB growth ?? Accession Number(s): [id number] ? cc: Kristy Goel; Physician,Non-Staff M.D. ? [facility] ? [address] ? [place] [address] ? Patient Name: ?? ALEJO OVERTON ? MRN: [facility]:[id number] ? date: 2000 ?Sex: F ?? Assigned Patient Location: US ?? Current Patient Location: ? Accession/Order Number: [id number] ?? Exam Date: 08/14/2025 ??19:06 ?Report Date: [...] M.D. ??08/15/2025 7:51 AM ? Dictation Location: [place] [address] ? Electronically authenticated by: [id number] ??Y ?? Date: 08/15/2025 ??07:51 ? Dictated By: ?Yesenia Rios M.D. ? Signed By: ?08/15/25 0754 ? DD/ 0751 ? TD/TT: ? [employer] Employee: Procedure Note Radiology, Radiologist, MD - 08/15/2025 [place] [address] Ultrasound Report Signed Patient: ALEJO OVERTON MMR#: [id number] : 2000Acct:[id number] Age/Sex: 24 / FADM Date: 08/14/25 Loc: US Attending Dr: Kristy Goel Ordering Physician: Kristy Goel Date of Service: 08/14/25 Procedure(s): US OB growth Accession Number(s): [id number] cc: Kristy Goel; Physician,Non-Staff M.D. The [address] [address] Patient Name: ALEJO OVERTON MRN: [id number] date: 2000 Sex: F Assigned Patient Location: US Current Patient Location: Accession/Order Number: [id number] Exam Date: 08/14/2025 19:06 Report Date: 08/15/2025 [...] Rios M.D. 08/15/2025 7:51 AM Dictation Location: [place] [address] Electronically authenticated by: [id number] Y Date: 7:51 Dictated By: Yesenia Rios M.D. Signed By:08/15/25 0754 DD/ 0751 TD/TT: [employer] Employee: Authorizing ProviderResult TypeResult StatusKrbrianna Goel NPCLINISYNC IMAGING Final Result from Last 3 Months Insurance Care Teams Team MemberRelationshipSpecialtyStart DateEnd Date Mc Ray MD [address] [place] [address] PCP - GeneralFamily Medicine05/27/23
--- OUTSIDE RECORDS SUMMARY | 2025-10-22 19:55 | XMS_ITS | Encounter Summary ---
Author Organization [facility] Address [address] [place] [address] Care Team Providers Care Electrical Technician Name Role Phone Mc Ray MD Primary Care Provider [phone] Encounter Details DateTypeDepartmentCare Team (Latest Contact Info)Tklijqjtsmh54/02/2025amboo flowsheet [facility] [address] [place] [address] Alexsander Al DO [facility] [address] [place], [facility] Social History Tobacco UseTypesPacks/DayYears UsedDateSmoking Tobacco: NeverAlcohol UseStandard Drinks/WeekCommentsYes0 (1 standard drink = 0.6 oz pure alcohol)Alcohol: monthly or less. Caffeine: noneEstimated Date of DgavgtahSevrbgxpSra03/15/2025 Based on UltrasoundSex and Gender InformationValueDate RecordedSex Assigned at BirthNot on fileLegal BdpTddzya18/15/2023 8:15 PM EDTGender IdentityNot on file Sexual OrientationNot on filedocumented as of this encounter Plan of Treatment DateTypeDepartmentCare Team (Latest Contact Info)Znkjheufjyr55/17/2025 2:00 PM ESTRoutine [facility] [address] [place] [address] Alexsander Al DO [address] [place] [address] documented as of this encounter Visit Diagnoses Not on filedocumented in this encounter Care Teams Team MemberRelationshipSpecialtyStart DateEnd Date Mc Ray MD [address] [place] [address] PCP - GeneralFamily Medicine05/27/23documented as of this encounter
[2025-10-22 20:18] VITALS: BP 125/66; PULSE 77
== END 2025-10-22 20:55 | disposition home or self-care (01) ==
LOC: US 19:51 → FBC 19:56
PROVIDERS: Visit Provider Physician Assistant
DX: O48.0 Post-term pregnancy (principal); Z3A.40 40 weeks gestation of pregnancy
CPT/HCPCS: 76818

== ENCOUNTER 2025-10-25 16:49 | Outpatient (OUT) | payer BC, SELFPAY ==
--- OUTSIDE RECORDS SUMMARY | 2025-10-17 08:30 | XMS_ITS | Encounter Summary ---
Author Organization [facility] Address [address] [place] [address] Care Team Providers Care Branding Machine Tender Name Role Phone Mc Ray MD Primary Care Provider Reason for Visit * ReasonCommentsRoutine Visit Encounter Details DateTypeDepartmentCare Team (Latest Contact Info)Saqywwwhapn72/10/2025 8:30 AM ESTRoutine [facility] [address] [place] [phone] Gabby Contreras PA [address] [place] [address] 39 weeks gestation of ([facility]); Post-term , 40-42 weeks of gestation ([facility]); Third trimester ([facility]) Social History Tobacco UseTypesPacks/DayYears UsedDateSmoking Tobacco: NeverAlcohol UseStandard Drinks/WeekCommentsYes0 (1 standard drink = 0.6 oz pure alcohol)Alcohol: monthly or less. Caffeine: noneEstimated Date of MenwannzPphwunteUbm61/15/2025 Based on UltrasoundSex and Gender InformationValueDate RecordedSex Assigned at BirthNot on fileLegal XrkHajxqa46/15/2023 8:15 PM EDTGender IdentityNot on file Sexual OrientationNot on filedocumented as of this encounter Last Filed Vital Signs Vital SignReadingTime TakenCommentsBlood Htqlmyxz984/8012/08/2025 9:04 AM EST Pulse--Temperature--Respiratory Rate--Oxygen Saturation--Inhaled Oxygen Concentration--Mijtsc196 kg (257 lb)10/17/2025 9:04 AM ESTHeight--Body Mass Index36.8805/29/2024 9:13 AM EDTdocumented in this encounter Progress Notes * DARÍO Bravo - 10/17/2025 8:30 AM EST Reason for Appointment: Patient ID: Janet Stock is a 25 y.o. female who presents for Routine Visit Patient presents today for Return OB appointment. MEDICATIONS Current Outpatient Medications Medication Instructions Vit w/Pj-Bfqhdsypm-FO (PNV PO) 1 tablet, Daily in the [...] Assessment/Plan ICD-10-CM 1. 39 weeks gestation of ([facility]) Z3A.39 POCT urinalysis dipstick manually resulted 2. Post-term , 40-42 weeks of gestation ([facility]) O48.0 US biophysical profile w nonstress test 3. Third trimester ([facility]) Z34.93 Assessment/Plan Return OB: Patient presents today [...] testImagingRoutine Post-term , 40-42 weeks of gestation ([facility]) Expected: 10/17/2025 (Approximate), Expires: 06/10/2026documented as of this encounter Procedures Procedure NamePriorityDate/TimeAssociated DiagnosisCommentsPOCT URINALYSIS OONZKJXQAcpozhu21/10/2025 8:46 AM EST 39 weeks gestation of ([facility]) documented in this encounter Results * (ABNORMAL) [...] Location / LateralityCollection Method / VolumeCollection TimeReceived WcvcLzags73/10/2025 8:46 AM EST Narrative Authorizing ProviderResult TypeResult StatusSentara [facility] TEST ENTER/EDIT ORDERABLESFinal Result documented in this encounter Visit Diagnoses Diagnosis 39 weeks gestation of ([facility]) Post-term , 40-42 weeks of gestation ([facility]) Third trimester ([facility]) state, incidental documented in this encounter Care Teams Team MemberRelationshipSpecialtyStart DateEnd Date Mc Ray MD [address] [place] [address] PCP - GeneralFamily Medicine05/27/23documented as of this encounter
--- OUTSIDE RECORDS SUMMARY | 2025-10-24 14:00 | XMS_ITS | Encounter Summary ---
Author Organization [facility] Address [address] [place] [address] Care Team Providers Care Turret Press Operator Name Role Phone Mc Ray MD Primary Care Provider Reason for Visit * ReasonCommentsRoutine Visit Encounter Details DateTypeDepartmentCare Team (Latest Contact Info)Dacsuqdsvuc54/17/2025 2:00 PM ESTRoutine [facility] [address] [place] [address] Alexsander Al DO [address] [facility] [address] [place] [place], [place] [id number] Third trimester ([facility]); 40 weeks gestation of ([facility]) Social History Tobacco UseTypesPacks/DayYears UsedDateSmoking Tobacco: NeverAlcohol UseStandard Drinks/WeekCommentsYes0 (1 standard drink = 0.6 oz pure alcohol)Alcohol: monthly or less. Caffeine: noneEstimated Date of KxczwaylAsotwmxwWtv25/15/2025 Based on UltrasoundSex and Gender InformationValueDate RecordedSex Assigned at BirthNot on fileLegal DwjCwnenl43/15/2023 8:15 PM EDTGender IdentityNot on file Sexual OrientationNot on filedocumented as of this encounter Last Filed Vital Signs Vital SignReadingTime TakenCommentsBlood Joorhiqu123/7610/24/2025 2:22 PM EST Pulse--Temperature--Respiratory Rate--Oxygen Saturation--Inhaled Oxygen Concentration--Hhrbvg623 kg (259 lb 1.9 oz)10/24/2025 2:22 PM ESTHeight--Body Mass Index37.18005/29/2024 9:13 AM EDTdocumented in this encounter Plan of Treatment Not on file documented as of this encounter Procedures Procedure NamePriorityDate/TimeAssociated DiagnosisCommentsPOCT URINALYSIS BGFJRHZUQlfryzt23/17/2025 4:52 PM EST Third trimester ([facility]) 40 weeks gestation of ([facility]) documented in this encounter Results * [...] this encounter Visit Diagnoses Diagnosis Third trimester ([facility]) state, incidental 40 weeks gestation of ([facility]) documented in this encounter Care Teams Team MemberRelationshipSpecialtyStart DateEnd Date Mc Ray MD [address] [facility] [place] [address] PCP - GeneralFamily Medicine05/27/23documented as of this encounter
--- OUTSIDE RECORDS SUMMARY | 2025-10-25 16:52 | XMS_ITS | Clinical Summary ---
Author Organization [facility] Address [address] [place] [address] Care Team Providers Care Bindery Cutter Operator Name Role Phone Mc Ray MD Primary Care Provider [phone] Allergies No known active allergies Medications MedicationSigDispense QuantityRefillsLast FilledStart DateEnd DateStatus Vit w/Ew-Ddalmdgpu-WE (PNV PO) Take 1 tablet by mouth Daily in the MorningActive Encounters DateTypeDepartmentCare AucvUxwumvrjezp67/17/2025 2:00 PM [place] [address] Alexsander Al DO Third trimester ([facility]); 40 weeks gestation of ([facility])10/24/2025amboo [place] [address] Alexsander Al DO 5Clinisync Result Encounter NOMS External Department Unsolicited Gabby Linder PA 10/17/2025 8:30 [place] [address] Gabby Linder PA 39 weeks gestation of ([facility]); Post-term , 40-42 weeks of gestation ([facility]); Third trimester ([facility])5Abstract [facility] [place] [facility] [address] [place] [address] Alexsander Al, DO 5Bamboo flowsheet [facility] [place] [facility] [address] [place] [address] Gabby Linder, PA 10/09/2025 10:00 AM ESTRoutine [facility] [address] [place] [address] Alexsander Al, DO 38 weeks gestation of ([facility]); Third trimester ([facility])5Bamboo flowsheet [facility] [address] [place] [address] Alexsander Al, DO 10/02/2025 8:50 AM ESTRoutine [facility] [address] [place] [address] [place] [address] Gabby Linder, PA 37 weeks gestation of ([facility]); Third trimester ([facility])5Bamboo flowsheet [facility] [address] [place] [address] [place] [address] Gabby Linder, PA 09/27/2025 8:50 AM ESTRoutine [facility] [address] [place] [address] Alexsander Al, DO Third trimester ([facility]); 36 weeks gestation of ([facility])5Clinisync Result Encounter NOMS External Department Unsolicited Alexsander Al, DO 5Bamboo flowsheet [facility] [address] [place] [address] [place] [address] Alexsander Al, DO 09/12/2025 1:30 PM ESTRoutine [facility] [address] [place] [address] Gabby Linder PA Third trimester ([facility]); 34 weeks gestation of ([facility])09/12/2025amboo flowsheet [facility] [address] [place] [address] [place] [address] Gabby Linder PA 08/28/2025 1:50 PM EDTRoutine [facility] [place] [address] Gabby Linder PA Third trimester ([facility]); 32 weeks gestation of ([facility])08/28/2025amboo flowsheet [facility] [place] [address] Gabby Linder PA 08/15/2025 11:20 AM EDTRoutine [facility] [place] [address] Kristy Goel NP Third trimester ([facility]); 30 weeks gestation of ([facility])5Clinisync Result Encounter NOMS External Department Unsolicited Kristy Goel NP 08/01/2025 3:00 PM EDTRoutine [facility] [address] [place] [address] [place] [address] Gabby Linder PA size inconsistent with dates ([facility]) (Primary Dx); Third trimester ([facility]); 28 weeks gestation of ([facility])08/01/2025amb flowsheet [facility] [address] [place] [address] [place] [address] Gabby Linder PA from Last 3 Months Family History Medical HistoryRelationNameCommentsNo Known ProblemsBrother3 brothersCOVIDFather No Known ProblemsSister2 sistersRelationNameStatusCommentsBrotherAliveFather DeceasedMaternal GrandfatherAliveMaternal GrandmotherAliveMotherAlivePaternal GrandfatherDeceasedPaternal GrandmotherDeceasedSisterAlive Social History Tobacco UseTypesPacks/DayYears UsedDateSmoking Tobacco: Never Tobacco Cessation:Counseling Given: Not Answered Alcohol UseStandard Drinks/WeekCommentsYes0 (1 standard drink = 0.6 oz pure alcohol)Alcohol: monthly or less. Caffeine: noneEstimated Date of JzbvniuoYijtcdofLyb99/15/2025Based on UltrasoundSex and Gender InformationValue Date RecordedSex Assigned at BirthNot on fileLegal JcrXnwfen34/15/2023 8:15 PM EDTGender IdentityNot on fileSexual OrientationNot on file Last Filed Vital Signs Vital SignReadingTime TakenCommentsBlood Yhnwosjm078/7610/24/2025 2:22 PM EST Pulse--Temperature--Respiratory Rate--Oxygen Saturation--Inhaled Oxygen Concentration--Oqryax895 kg (259 lb 1.9 oz)10/24/2025 2:22 PM UXQKmiybm384.8 cm (5' 10 )05/29/2024 9:13 AM EDTBody Mass Index37.18005/29/2024 9:13 AM EDT Plan of Treatment Not on file Procedures Procedure NamePriorityDate/TimeAssociated DiagnosisCommentsPOCT URINALYSIS OZTLXPHJOjnwpjb29/17/2025 4:52 PM EST Third trimester ([facility]) 40 weeks gestation of ([facility]) US OB BPP W NON-GNUQNN1210/23/2025 8:52 AM EST POCT URINALYSIS WFUIEDFOGhkyomv78/10/2025 8:46 AM EST 39 weeks gestation of ([facility]) POCT URINALYSIS YNGIXXXQWvtbqid52/02/2025 10:13 AM EST 38 weeks gestation of ([facility]) Third trimester ([facility]) STREP GP B CULTURE+DAHNPdxhgkq90/20/2025 9:00 AM EST POCT URINALYSIS UUGGQSKZPbtqwuo36/05/2025 1:41 PM EST Third trimester ([facility]) POCT URINALYSIS XWOLVJNBUgpycxz72/21/2025 2:07 PM EDT 32 weeks gestation of ([facility]) POCT URINALYSIS NHAUBGXMFkturtl32/08/2025 11:31 AM EDT 30 weeks gestation of ([facility]) US OB HQBXJD4408/15/2025 7:51 AM EDT POCT URINALYSIS BTDCHMNBRbvwclr93/24/2025 3:13 PM EDT Third trimester ([facility]) from Last 3 Months Results * POCT urinalysis dipstick manually resulted (10/24/2025 4:52 PM EST) Only the most recent of7 resultswithin the time period is included. ComponentValueRef RangeTest MethodAnalysis TimePerformed AtPathologist Signature Color, UAYellowClarity, UAClearGlucose, UANegativeNegative - 2000(110) ++++ mg/dLBilirubin, UANegativeNegative - 4(70) +++ mg/dLKetones, UANegativeNegative - 160(16) ++++ mg/dLSpec Grav, UA1.0201 - 1.03Blood, UANegativeNegative - 50 Ming/mcLpH, UA5.55 - 9Protein, UANegativeNegative - 2000(20) ++++ mg/dL Urobilinogen, UA1.00.2 - 12 mg/dLLeukocytes, UANegativeNegative - 500+++ Manpreet/mcL Nitrite, UANegativeNegative - PositiveSpecimen (Source)Anatomical Location / LateralityCollection Method / VolumeCollection TimeReceived DsirIwjfy32/17/2025 4:52 PM EST Narrative Authorizing ProviderResult TypeResult StatusCorey Servando DOPOINT OF CARE TEST ENTER/EDIT ORDERABLESFinal Result * OB BPP W NON-STRESS (10/23/2025 8:52 AM EST)Anatomical Region LateralityModalityOtherSpecimen (Source)Anatomical Location / Laterality Collection Method / VolumeCollection TimeReceived Time10/23/2025 8:52 AM EST Narrative 10/23/2025 8:55 AM EST [facility] ?[address] ? [place] [address] ? Ultrasound Report ? Signed ? Patient: ALEJO OVERTON ?MR#: [id number] ?? : 2000 ?Acct:[id number] ?? Age/Sex: 25 / F ?ADM Date: 10/22/25 ?? Loc: US ? Attending Dr: Gabby Linder ? Ordering Physician: Gabby Linder ?? Date of Service: 10/22/25 ?? Procedure(s): US OB BPP w non-stress ?? Accession Number(s): [id number] ? cc: Gabby Linder; Physician,Non-Staff M.D. ? [facility] ? [address] ? [place] [address] ? Patient Name: ?? ALEJO OVERTON ? MRN: [facility]:[id number] ? date: 2000 ?Sex: F ?? Assigned Patient Location: ?? Current Patient Location: ? Accession/Order Number: [id number] ?? Exam Date: 10/22/2025 ??19:58 ?Report Date: 10/23/2025 ??08:52 ? At the request of: ?? GABBY ??NIYAH ? Procedure: ??US OB BPP w non-stress ? BIOPHYSICAL PROFILE: ? CLINICAL INFORMATION: POST-TERM O48.0 ? COMPARISON: None. ? There is a single live intrauterine gestation in cephalic presentation. ??The ?? reported gestational age is 40 weeks 0 days. ??The heart rate measures ?? 147 beats per minute. ? FINDINGS: ? TONE: 1 or more episodes of activity extension and flexion of ?? extremity or opening and closing of the hand ?[Y] ? 2/2 ?? GROSS BODY MOVEMENTS: 3 or more discrete body or limb movements ?[Y] ? 2/2 ?? BREATHING MOVEMENTS: 1 or more episodes of breathing lasting at ?? least 30 seconds ? [Y] ? 2/2 ?? EMILY: A single deepest vertical pocket of amniotic fluid greater than 2 cm ? [Y] ? 2/2 ?EMILY: 19.9 cm. ??This is in upper normal range. ? Total score: ? 8/8 ? US/US OB BPP w non-stress ?? IMPRESSION: ? NORMAL BIOPHYSICAL PROFILE ? Impression dictated by: Yesenia Rios M.D. ??10/23/2025 8:52 AM ? Dictation Location: RADIO-PC-30 ? Electronically authenticated by: [id number] ??Y ?? Date: 10/23/2025 ??08:52 ? Dictated By: ?Yesenia Rios M.D. ? Signed By: ?12/16/25 0855 ? DD/ 0852 ? TD/TT: ? Theatre Director: Procedure Note Radiology, Radiologist, - 10/23/2025 [place] [address] Ultrasound Report Signed Patient: ALEJO OVERTON MMR#: [id number] : 2000Acct:[id number] Age/Sex: 25 / FADM Date: 10/22/25 Loc: US Attending Dr: Gabby Linder Ordering Physician: Gabby Linder Date of Service: 10/22/25 Procedure(s): US OB BPP w non-stress Accession Number(s): [id number] cc: Gabby Linder; Physician,Non-Staff M.DLuther The [place] [id number] Patient Name: ALEJO OVERTON MRN: [id number]:[id number] date: 2000 Sex: F Assigned Patient Location: US Current Patient Location: Accession/Order Number: [id number] Exam Date: 10/22/2025 19:58 Report Date: 10/23/2025 08:52 At the request of: GABBY LINDER Procedure: US OB BPP w non-stress BIOPHYSICAL PROFILE: CLINICAL INFORMATION: POST-TERM O48.0 COMPARISON: None. There is a single live intrauterine gestation in cephalic presentation.The reported gestational age is 40 weeks 0 days. The heart ratemeasures 147 beats per minute. FINDINGS: TONE: 1 or more episodes of activity extension and flexion of extremity or opening and closing of the hand [Y] 2/2 GROSS BODY MOVEMENTS: 3 or more discrete body or limb movements [Y] 2/2 BREATHING MOVEMENTS: 1 or more episodes of breathing lastingat least 30 seconds [Y] 2/2 EMILY: A single deepest vertical pocket of amniotic fluid greater than 2 cm [Y] 2/2 EMILY: 19.9 cm. This is in upper normal range. Total score: 8/8 US/US OB BPP w non-stress IMPRESSION: NORMAL BIOPHYSICAL PROFILE Impression dictated by: Yesenia Rios M.D. 10/23/2025 8:52 AM Dictation Location: [place] [address] Electronically authenticated by: [id number] Y Date: 508:52 Dictated By: Yesenia Rios M.D. Signed By:10/23/2555 DD/ 1 TD/TT: Theatre Director: Authorizing ProviderResult TypeResult StatusAmy [place] PACLINISYNC IMAGINGFinal Result * STREP GP B CULTURE+RFLX (09/27/2025 9:00 AM EST)ComponentValueRef RangeTest MethodAnalysis TimePerformed AtPathologist SignatureSTREP GP B CULTURE+RFLX ??Strep Gp B Culture+Rflx TBHSTREP GP B CULTURE+RFLXNegativeTBHSTREP GP B CULTURE+RFLXCenters for Disease Control and Prevention (CDC) andTBHSTREP GP B CULTURE+RFLXAmerican Congress of Obstetricians and GynecologistsTBHSTREP GP B [...] is noted.TBHSTREP GP B CULTURE+RFLX Performed at: [facility]TBHSTREP GP B CULTURE+[id number] [place], [place] [id number] GP B CULTURE+RFLXLab Director: Jason Barrera PhD, Phone: [phone] (Source)Anatomical Location / Laterality Collection Method / VolumeCollection TimeReceived Time09/27/2025 9:00 AM EST 09/27/2025 3:51 PM EST Narrative [facility] - 10/01/2025 10:08 AM EST Authorizing ProviderResult TypeResult StatusCorey Servando DOLAB BLOOD ORDERABLES Final ResultPerforming OrganizationAddressCity/State/ZIP CodePhone Number [facility]IN[facility] * US OB GROWTH (08/15/2025 7:51 AM EDT)Anatomical RegionLateralityModalityOther Specimen (Source)Anatomical Location / LateralityCollection Method / Volume Collection TimeReceived Time08/15/2025 7:51 AM EDT Narrative 08/15/2025 7:54 AM EDT [facility] ?[address] ? [place] [address] ? Ultrasound Report ? Signed ? Patient: ALEJO OVERTON ?MR#: [id number] ?? : 2000 ?Acct:[id number] ?? Age/Sex: 24 / F ?ADM Date: 08/14/25 ?? Loc: US ? Attending Dr: Kristy Goel ? Ordering Physician: Kristy Goel ?? Date of Service: 08/14/25 ?? Procedure(s): US OB growth ?? Accession Number(s): [id number] ? cc: Kristy Goel; Physician,Non-Staff M.D. ? [facility] ? [address] ? [place] [address] ? Patient Name: ?? ALEJO OVERTON ? MRN: [facility]:[id number] ? date: 2000 ?Sex: F ?? Assigned Patient Location: ?? Current Patient Location: ? Accession/Order Number: [id number] ?? Exam Date: 08/14/2025 ??19:06 ?Report Date: [...] M.D. ??08/15/2025 7:51 AM ? Dictation Location: RADIO-PC-02 ? Electronically authenticated by: [id number] ??Y ?? Date: 08/15/2025 ??07:51 ? Dictated By: ?Yesenia Rios M.D. ? Signed By: ?08/15/25 0754 ? DD/ 0751 ? TD/TT: ? Theatre Director: Procedure Note Radiology, Radiologist, MD - 08/15/[address] [address] Ultrasound Report Signed Patient: ALEJO OVERTON MMR#: [id number] : 2000Acct:[id number] Age/Sex: 24 / FADM Date: 08/14/25 Loc: US Attending Dr: Kristy Goel Ordering Physician: Kristy Goel Date of Service: 08/14/25 Procedure(s): US OB growth Accession Number(s): [id number] cc: Kristy Goel; Physician,Non-Staff M.Nicola [place] [id number] Patient Name: ALEJO OVERTON MRN: [id number] date: 2000 Sex: F Assigned Patient Location: Current Patient Location: Accession/Order Number: [id number] Exam Date: 08/14/2025 19:06 Report Date: 08/15/2025 [...] Rios M.D. 08/15/2025 7:51 AM Dictation Location: [place] [address] Electronically authenticated by: [id number] Y Date: 7:51 Dictated By: Yesenia Rios M.D. Signed By:08/15/25 0754 DD/ 0751 TD/TT: Theatre Director: Authorizing ProviderResult TypeResult StatusKristy Goel NPCLINISYNC IMAGING Final Result from Last 3 Months Insurance Care Teams Team MemberRelationshipSpecialtyStart DateEnd Date Mc Ray MD [address] [place] [address] PCP - [facility]Unity[facility]-M[facility]townly Medicine05/27/23
--- OUTSIDE RECORDS SUMMARY | 2025-10-25 16:52 | XMS_ITS | Encounter Summary ---
Author Organization [facility] Address [address] [place] [address] Care Team Providers Care Caddie Supervisor Name Role Phone Mc Ray MD Primary Care Provider [phone] Encounter Details DateTypeDepartmentCare Team (Latest Contact Info)Krczdehgvta90/17/2025Bamboo flowsheet [facility] [address] [place] [address] Alexsander Al DO [address] [facility] [address] [place] [place] [id number] Social History Tobacco UseTypesPacks/DayYears UsedDateSmoking Tobacco: NeverAlcohol UseStandard Drinks/WeekCommentsYes0 (1 standard drink = 0.6 oz pure alcohol)Alcohol: monthly or less. Caffeine: noneEstimated Date of YlkprsouVkrriksoJqv69/15/2025 Based on UltrasoundSex and Gender InformationValueDate RecordedSex Assigned at BirthNot on fileLegal XpePzsswm43/15/2023 8:15 PM EDTGender IdentityNot on file Sexual OrientationNot on filedocumented as of this encounter Plan of Treatment Not on file documented as of this encounter Visit Diagnoses Not on filedocumented in this encounter Care Teams Team MemberRelationshipSpecialtyStart DateEnd Date Mc Ray MD [address] [place] [address] PCP - GeneralFamily Medicine05/27/23documented as of this encounter
--- OUTSIDE RECORDS SUMMARY | 2025-10-25 16:52 | XMS_ITS | Encounter Summary ---
Author Organization [facility] Address [address] [place] [address] Care Team Providers Care Production Troubleshooter Name Role Phone Mc Ray MD Primary Care Provider [phone] Encounter Details DateTypeDepartmentCare Team (Latest Contact Info)Ywfnepoafug54/10/2025bstract [facility] [address] [address] Alexsander Al DO [address] [facility] [place] [address] Social History Tobacco UseTypesPacks/DayYears UsedDateSmoking Tobacco: NeverAlcohol UseStandard Drinks/WeekCommentsYes0 (1 standard drink = 0.6 oz pure alcohol)Alcohol: monthly or less. Caffeine: noneEstimated Date of LymmgxdyRrkewpwfUgi48/15/2025 Based on UltrasoundSex and Gender InformationValueDate RecordedSex Assigned at BirthNot on fileLegal BoaIdgryg53/15/2023 8:15 PM EDTGender IdentityNot on file Sexual OrientationNot on filedocumented as of this encounter Plan of Treatment Not on file documented as of this encounter Visit Diagnoses Not on filedocumented in this encounter Care Teams Team MemberRelationshipSpecialtyStart DateEnd Date Mc Ray MD [address] [place] [address] PCP - GeneralFamily Medicine05/27/23documented as of this encounter
--- OUTSIDE RECORDS SUMMARY | 2025-10-25 16:52 | XMS_ITS | Encounter Summary ---
Author Organization [facility] Address [address] [place] [address] Care Team Providers Care Maintenance Apprentice Name Role Phone Mc Ray MD Primary Care Provider [phone] Encounter Details DateTypeDepartmentCare Team (Latest Contact Info)Bellckochqe63/10/2025amboo flowsheet [facility] [address] [facility] [place] [address] Gabby Contreras PA [address] [place], [facility] Social History Tobacco UseTypesPacks/DayYears UsedDateSmoking Tobacco: NeverAlcohol UseStandard Drinks/WeekCommentsYes0 (1 standard drink = 0.6 oz pure alcohol)Alcohol: monthly or less. Caffeine: noneEstimated Date of RgrwydpeHcxjlwtfDbh39/15/2025 Based on UltrasoundSex and Gender InformationValueDate RecordedSex Assigned at BirthNot on fileLegal LjuHhztwr16/15/2023 8:15 PM EDTGender IdentityNot on file Sexual OrientationNot on filedocumented as of this encounter Plan of Treatment Not on file documented as of this encounter Visit Diagnoses Not on filedocumented in this encounter Care Teams Team MemberRelationshipSpecialtyStart DateEnd Date Mc Ray MD [address] [place] [address] PCP - GeneralFamily Medicine05/27/23documented as of this encounter
--- OUTSIDE RECORDS SUMMARY | 2025-10-25 16:52 | XMS_ITS | Encounter Summary ---
Author Organization [facility] Address [address] [place] [address] Care Team Providers Care Receiving Supervisor Name Role Phone Mc Ray MD Primary Care Provider Encounter Details DateTypeDepartmentCare Team (Latest Contact Info)Rhqotkmxodu91/16/2025Clinisync Result Encounter NOMS External Department Unsolicited Gabby Linder PA [address] [place] [address] [place] [address] Social History Tobacco UseTypesPacks/DayYears UsedDateSmoking Tobacco: NeverAlcohol UseStandard Drinks/WeekCommentsYes0 (1 standard drink = 0.6 oz pure alcohol)Alcohol: monthly or less. Caffeine: noneEstimated Date of HcxwepkkUthiwifwMfu92/15/2025 Based on UltrasoundSex and Gender InformationValueDate RecordedSex Assigned at BirthNot on fileLegal ClbKbecpb41/15/2023 8:15 PM EDTGender IdentityNot on file Sexual OrientationNot on filedocumented as of this encounter Plan of Treatment Not on file documented as of this encounter Procedures Procedure NamePriorityDate/TimeAssociated DiagnosisCommentsUS OB BPP W NON-TEUVAU1910/23/2025 8:52 AM EST documented in this encounter Results * US OB BPP W NON-STRESS (10/23/2025 8:52 AM EST)Anatomical Region LateralityModalityOtherSpecimen (Source)Anatomical Location / Laterality Collection Method / VolumeCollection TimeReceived Time10/23/2025 8:52 AM EST Narrative 10/23/2025 8:55 AM EST [facility] ?[address] ? [place], [facility] ? Ultrasound Report ? Signed ? Patient: BROOKLYNNJANET ?MR#: [id number] ?? : 2000 ?Acct:[id number] ?? Age/Sex: 25 / F ?ADM Date: 12/15/25 ?? Loc: US ? Attending Dr: Gabby Linder ? Ordering Physician: Gabby Linder ?? Date of Service: 10/22/25 ?? Procedure(s): US OB BPP w non-stress ?? Accession Number(s): [id number] ? cc: Gabby Linder; Physician,Non-Staff M.D. ? [facility] ? [address] ? [place] [address] ? Patient Name: ?? JANET STOCK ? MRN: [facility]:[id number] ? date: 2000 ?Sex: F ?? Assigned Patient Location: US ?? Current Patient Location: ? Accession/Order Number: [id number] ?? Exam Date: 10/22/2025 ??19:58 ?Report Date: [...] Dictation Location: RADIO-PC-30 ? Electronically authenticated by: [id number] ??Y ?? Date: 10/23/2025 ??08:52 ? Dictated By: ?Yesenia Rios M.D. ? Signed By: ?/16/ 0855 ? DD/DT: /16/ 0852 ? TD/TT: ? Greens Tier: Procedure Note Radiology, Radiologist, - 10/23/[address] [address] Ultrasound Report Signed Patient: JANET STOCK MMR#: [id number] : 2000Acct:[id number] Age/Sex: 25 / FADM Date: 10/22/25 Loc: US Attending Dr: Gabby Linder Ordering Physician: Gabby Linder Date of Service: 10/22/25 Procedure(s): US OB BPP w non-stress Accession Number(s): [id number] cc: Gabby Linder; Physician,Non-Staff M.Nicola The [address] [address] Patient Name: JANET STOCK MRN: [facility]:[id number] date: 2000 Sex: F Assigned Patient Location: US Current Patient Location: Accession/Order Number: [id number] Exam Date: 10/22/2025 19:58 Report Date: 10/23/2025 [...] Rios M.D. 10/23/2025 8:52 AM Dictation Location: [place] [address] Electronically authenticated by: [id number] Y Date: 508:52 Dictated By: Yesenia Rios M.D. Signed By:10/23/2555 DD/ 1 TD/TT: Greens Tier: Authorizing ProviderResult TypeResult StatusAmy [place] PACLMONROE COUNTY HOSPITALYNC IMAGINGFinal Result documented in this encounter Visit Diagnoses Not on filedocumented in this encounter Care Teams Team MemberRelationshipSpecialtyStart DateEnd Date Mc Ray MD [address] [place] [address] PCP - GeneralFamily Medicine05/27/23documented as of this encounter
[2025-10-25 16:53] VITALS: BP 133/62; PULSE 86
== END 2025-10-25 17:30 | disposition home or self-care (01) ==
LOC: FBCO 16:49 → FBC 16:50
PROVIDERS: Visit Provider Obstetrics & Gynecology
DX: O26.893 Other specified pregnancy related conditions, third trimester (principal)
CPT/HCPCS: 59025

== ENCOUNTER 2025-10-27 18:17 | Inpatient (IN) | payer BC, SELFPAY ==
--- OUTSIDE RECORDS SUMMARY | 2025-10-17 08:30 | XMS_ITS | Encounter Summary ---
Author Organization [facility] Address [address] [place] [address] Care Team Providers Care Auto Rental Clerk Name Role Phone Mc Ray MD Primary Care Provider Reason for Visit * ReasonCommentsRoutine Visit Encounter Details DateTypeDepartmentCare Team (Latest Contact Info)Eyizuppmhnl26/10/2025 8:30 AM ESTRoutine [facility] [address] [place] [phone] Gabby Contreras PA [address] [place] [address] 39 weeks gestation of ([facility]); Post-term , 40-42 weeks of gestation ([facility]); Third trimester ([facility]) Social History Tobacco UseTypesPacks/DayYears UsedDateSmoking Tobacco: NeverAlcohol UseStandard Drinks/WeekCommentsYes0 (1 standard drink = 0.6 oz pure alcohol)Alcohol: monthly or less. Caffeine: noneEstimated Date of XwtpxemzExleujeaYhs15/15/2025 Based on UltrasoundSex and Gender InformationValueDate RecordedSex Assigned at BirthNot on fileLegal IiqDrlbwl61/15/2023 8:15 PM EDTGender IdentityNot on file Sexual OrientationNot on filedocumented as of this encounter Last Filed Vital Signs Vital SignReadingTime TakenCommentsBlood Fgfxeocn756/8012/08/2025 9:04 AM EST Pulse--Temperature--Respiratory Rate--Oxygen Saturation--Inhaled Oxygen Concentration--Mcpitv134 kg (257 lb)10/17/2025 9:04 AM ESTHeight--Body Mass Index36.8805/29/2024 9:13 AM EDTdocumented in this encounter Progress Notes * DARÍO Bravo - 10/17/2025 8:30 AM EST Reason for Appointment: Patient ID: Janet Stock is a 25 y.o. female who presents for Routine Visit Patient presents today for Return OB appointment. MEDICATIONS Current Outpatient Medications Medication Instructions Vit w/Rb-Uvqmijpxt-XT (PNV PO) 1 tablet, Daily in the [...] reviewed. Vitals: Estimated body mass index is 36.88 kg/m?? as calculated from the following: Height as of 24: 5' 10 . Weight as of this encounter: 257 lb. BP: 120/80 Patient's last menstrual period was 01/04/2025. Assessment/Plan ICD-10-CM 1. 39 weeks gestation of ([facility]) Z3A.39 POCT urinalysis dipstick manually resulted 2. Post-term , 40-42 weeks of gestation ([facility]) O48.0 US biophysical profile w nonstress test 3. Third trimester ([facility]) Z34.93 Assessment/Plan Return OB: Patient presents today for a routine obstetrics appointment. Patient is currently 39w2d . Patient states she is doing well but has complaints of being tired due to current . Patient has verbalizes frequent movement. labor precautions was discussed/given and patient was instructed to perform kick counts three times a day. Patient given order for nst and bpp due to being past due date Orders Placed This Encounter Procedures US biophysical profile w non stress test POCT urinalysis dipstick manually resulted Follow Up: Patient is to return to office in 1 week for routine OB appointment. Documented by DARÍO Bravo on behalf of: DARÍO Bravo documented in this encounter Miscellaneous Notes * Addendum Note - Shannon Munson LPN - 10/17/2025 8:30 AM ESTAddended by: SHANNON MUNSON on: 10/17/2025 09:39 AM Modules accepted: Orders documented in this encounter Plan of Treatment NameTypePriorityAssociated DiagnosesOrder ScheduleUS biophysical profile w non stress testImagingRoutine Post-term , 40-42 weeks of gestation ([facility]) Expected: 10/17/2025 (Approximate), Expires: 06/10/2026documented as of this encounter Procedures Procedure NamePriorityDate/TimeAssociated DiagnosisCommentsPOCT URINALYSIS QTPYXZREQymrjku29/10/2025 8:46 AM EST 39 weeks gestation of ([facility]) documented in this encounter Results * (ABNORMAL) POCT urinalysis dipstick manually resulted (10/17/2025 8:46 AM EST) ComponentValueRef RangeTest MethodAnalysis TimePerformed AtPathologist SignatureColor, UAYellowClarity, UAClearGlucose, UANegativeNegative - 2000(110) ++++ mg/dLBilirubin, UANegativeNegative - 4(70) +++ mg/dLKetones, UA NegativeNegative - 160(16) ++++ mg/dLSpec Grav, UA1.0151 - 1.03Blood, UA NegativeNegative - 50 Ming/mcLpH, UA7.05 - 9Protein, UAPositiveNegative - 2000(20) ++++ mg/dLComment:TraceUrobilinogen, UA0.20.2 - 12 mg/dLLeukocytes, UA2+Negative - 500+++ Manpreet/mcLNitrite, UANegativeNegative - PositiveSpecimen (Source)Anatomical Location / LateralityCollection Method / VolumeCollection TimeReceived VqzsJgnti51/10/2025 8:46 AM EST Narrative Authorizing ProviderResult TypeResult StatusWell[facility] TEST ENTER/EDIT ORDERABLESFinal Result documented in this encounter Visit Diagnoses Diagnosis 39 weeks gestation of ([facility]) Post-term , 40-42 weeks of gestation ([facility]) Third trimester ([facility]) state, incidental documented in this encounter Care Teams Team MemberRelationshipSpecialtyStart DateEnd Date Mc Ray MD [address] [place] [address] PCP - GeneralFamily Medicine05/27/23documented as of this encounter
--- OUTSIDE RECORDS SUMMARY | 2025-10-24 14:00 | XMS_ITS | Encounter Summary ---
Author Organization [facility] Address [address] [place] [address] Care Team Providers Care Meeting Planner Name Role Phone Mc Ray MD Primary Care Provider [phone] Reason for Visit * ReasonCommentsRoutine Visit Encounter Details DateTypeDepartmentCare Team (Latest Contact Info)Qqulmkwpery06/17/2025 2:00 PM ESTRoutine [facility] [address] [place] [address] Alexsander Al DO [address] [facility] [address] [place], [place] [id number] Third trimester ([facility]); 40 weeks gestation of ([facility]) Social History Tobacco UseTypesPacks/DayYears UsedDateSmoking Tobacco: NeverAlcohol UseStandard Drinks/WeekCommentsYes0 (1 standard drink = 0.6 oz pure alcohol)Alcohol: monthly or less. Caffeine: noneEstimated Date of IrxrhyviJmkwtycfAlt32/15/2025 Based on UltrasoundSex and Gender InformationValueDate RecordedSex Assigned at BirthNot on fileLegal WezCazdre47/15/2023 8:15 PM EDTGender IdentityNot on file Sexual OrientationNot on filedocumented as of this encounter Last Filed Vital Signs Vital SignReadingTime TakenCommentsBlood Aetxsufe702/7610/24/2025 2:22 PM EST Pulse--Temperature--Respiratory Rate--Oxygen Saturation--Inhaled Oxygen Concentration--Stmgln899 kg (259 lb 1.9 oz)10/24/2025 2:22 PM ESTHeight--Body Mass Index37.18005/29/2024 9:13 AM EDTdocumented in this encounter Plan of Treatment Not on file documented as of this encounter Procedures Procedure NamePriorityDate/TimeAssociated DiagnosisCommentsPOCT URINALYSIS PRULZKKCRugcysf83/17/2025 4:52 PM EST Third trimester ([facility]) 40 weeks gestation of ([facility]) documented in this encounter Results * POCT [...] this encounter Visit Diagnoses Diagnosis Third trimester ([facility]) state, incidental 40 weeks gestation of ([facility]) documented in this encounter Care Teams Team MemberRelationshipSpecialtyStart DateEnd Date Mc Ray MD [address] [facility] [address] PCP - GeneralFamily Medicine05/27/23documented as of this encounter
[2025-10-27] VITALS (8 sets, daily range): BP systolic 99–124; BP diastolic 54–80; PULSE 72–79
--- OUTSIDE RECORDS SUMMARY | 2025-10-27 18:22 | XMS_ITS | Encounter Summary ---
Author Organization [facility] Address [address] [place] [address] Care Team Providers Care Compressor Operator Portable Name Role Phone Mc Ray MD Primary Care Provider [phone] Encounter Details DateTypeDepartmentCare Team (Latest Contact Info)Tkfgzubugoo87/10/2025bstract [facility] [address] [facility] [place] [address] Alexsander Al DO [address] [facility] [place] [address] Social History Tobacco UseTypesPacks/DayYears UsedDateSmoking Tobacco: NeverAlcohol UseStandard Drinks/WeekCommentsYes0 (1 standard drink = 0.6 oz pure alcohol)Alcohol: monthly or less. Caffeine: noneEstimated Date of DuxbojlpZctpyqueFhi66/15/2025 Based on UltrasoundSex and Gender InformationValueDate RecordedSex Assigned at BirthNot on fileLegal IvmRsxtvl70/15/2023 8:15 PM EDTGender IdentityNot on file Sexual OrientationNot on filedocumented as of this encounter Plan of Treatment Not on file documented as of this encounter Visit Diagnoses Not on filedocumented in this encounter Care Teams Team MemberRelationshipSpecialtyStart DateEnd Date Mc Ray MD [address] [place] [address] PCP - GeneralFamily Medicine05/27/23documented as of this encounter
--- OUTSIDE RECORDS SUMMARY | 2025-10-27 18:22 | XMS_ITS | Encounter Summary ---
Author Organization [facility] Address [address] [place] [address] Care Team Providers Care Medical Technologist Hematology Name Role Phone Mc Ray MD Primary Care Provider [phone] Encounter Details DateTypeDepartmentCare Team (Latest Contact Info)Vivpgjlbukw40/16/2025Clinisync Result Encounter [facility] External Department Unsolicited Gabby Linder PA [address] [place] [address] [place] [address] Social History Tobacco UseTypesPacks/DayYears UsedDateSmoking Tobacco: NeverAlcohol UseStandard Drinks/WeekCommentsYes0 (1 standard drink = 0.6 oz pure alcohol)Alcohol: monthly or less. Caffeine: noneEstimated Date of IgviueczKhqguhwdLue04/15/2025 Based on UltrasoundSex and Gender InformationValueDate RecordedSex Assigned at BirthNot on fileLegal XqfMzaxnc09/15/2023 8:15 PM EDTGender IdentityNot on file Sexual OrientationNot on filedocumented as of this encounter Plan of Treatment Not on file documented as of this encounter Procedures Procedure NamePriorityDate/TimeAssociated DiagnosisCommentsUS OB BPP W NON-KBUCNF7110/23/2025 8:52 AM EST documented in this encounter Results * US OB BPP W NON-STRESS (10/23/2025 8:52 AM EST)Anatomical Region LateralityModalityOtherSpecimen (Source)Anatomical Location / Laterality Collection Method / VolumeCollection TimeReceived Time10/23/2025 8:52 AM EST Narrative 10/23/2025 8:55 AM EST [facility] ?[address] ? [place], [facility] ? Ultrasound Report ? Signed ? Patient: BROOKLYNNJANET ?MR#: [id number] ?? : 2000 ?Acct:[id number] ?? Age/Sex: 25 / F ?ADM Date: 12/15/25 ?? Loc: US ? Attending Dr: Gabby Linder ? Ordering Physician: Gabby Linder ?? Date of Service: 10/22/25 ?? Procedure(s): US OB BPP w non-stress ?? Accession Number(s): [id number] ? cc: Gabby Linder; Physician,Non-Staff M.D. ? [facility] ? [address] ? [place] [address] ? Patient Name: ?? JANET STOCK ? MRN: [facility]:[id number] ? date: 2000 ?Sex: F ?? Assigned Patient Location: US ?? Current Patient Location: ? Accession/Order Number: [id number] ?? Exam Date: 10/22/2025 ??19:58 ?Report Date: [...] Dictation Location: RADIO-PC-30 ? Electronically authenticated by: [id number] ??Y ?? Date: 10/23/2025 ??08:52 ? Dictated By: ?Yesenia Rios M.D. ? Signed By: ?/16/ 0855 ? DD/DT: /16/ 0852 ? TD/TT: ? Cook Soup: Procedure Note Radiology, Radiologist, - 10/23/[address] [address] Ultrasound Report Signed Patient: JANET STOCK MMR#: [id number] : 2000Acct:[id number] Age/Sex: 25 / FADM Date: 10/22/25 Loc: US Attending Dr: Gabby Linder Ordering Physician: Gabby Linder Date of Service: 10/22/25 Procedure(s): US OB BPP w non-stress Accession Number(s): [id number] cc: Gabby Linder; Physician,Non-Staff M.Nicola The [address] [address] Patient Name: JANET STOCK MRN: [facility]:[id number] date: 2000 Sex: F Assigned Patient Location: US Current Patient Location: Accession/Order Number: [id number] Exam Date: 10/22/2025 19:58 Report Date: 10/23/2025 [...] Rios M.D. 10/23/2025 8:52 AM Dictation Location: [place] [address] Electronically authenticated by: [id number] Y Date: 508:52 Dictated By: Yesenia Rios M.D. Signed By:10/23/2555 DD/ 1 TD/TT: Cook Soup: Authorizing ProviderResult TypeResult StatusAmy [place] PACLHILL CREST BEHAVIORAL HEALTH SERVICESYNC IMAGINGFinal Result documented in this encounter Visit Diagnoses Not on filedocumented in this encounter Care Teams Team MemberRelationshipSpecialtyStart DateEnd Date Mc Ray MD [address] [place] [address] PCP - GeneralFamily Medicine05/27/23documented as of this encounter
--- OUTSIDE RECORDS SUMMARY | 2025-10-27 18:22 | XMS_ITS | Clinical Summary ---
Author Organization [facility] Address [address] [place] [address] Care Team Providers Care Atg Java Developer Name Role Phone Mc Ray MD Primary Care Provider [phone] Allergies No known active allergies Medications MedicationSigDispense QuantityRefillsLast FilledStart DateEnd DateStatus Vit w/Aj-Yywmivxwj-JO (PNV PO) Take 1 tablet by mouth Daily in the MorningActive Encounters DateTypeDepartmentCare EyptOtusbocwwyb16/17/2025 2:00 PM [place] [address] Alexsander Al DO Third trimester ([facility]); 40 weeks gestation of ([facility])10/24/2025amboo [place] [address] Alexsander Al DO 5Clinisync Result Encounter [facility] External Department Unsolicited Gabby Linder PA 10/17/2025 8:30 [place] [address] Gabby Linder PA 39 weeks gestation of ([facility]); Post-term , 40-42 weeks of gestation ([facility]); Third trimester ([facility])5Abstract [facility] [place] [facility] [address] [place] [address] Alexsander Al, DO 5Bamboo flowsheet [facility] [place] [facility] [address] [place] [place] [address] Gabby Linder, PA 10/09/2025 10:00 AM ESTRoutine [facility] [address] [place] [address] Alexsander Al, DO 38 weeks gestation of ([facility]); Third trimester ([facility])5Bamboo flowsheet [facility] [address] [place] [place] [address] Alexsander Al, DO 10/02/2025 8:50 AM ESTRoutine [facility] OBK[facility]STIEN [address] [place] [address] [place] [address] Gabby Linder, PA 37 weeks gestation of ([facility]); Third trimester ([facility])5Bamboo flowsheet [facility] [address] [place] [address] [place] [address] Gabby Linder, PA 09/27/2025 8:50 AM ESTRoutine [facility] [address] [place] [place] [address] Alexsander Al, DO Third trimester ([facility]); 36 weeks gestation of ([facility])5Clinisync Result Encounter [facility] External Department Unsolicited Alexsander Al, DO 5Bamboo flowsheet [facility] [address] [place] [address] [place] [address] Alexsander Al, DO 09/12/2025 1:30 PM ESTRoutine [facility] [address] [place] [place] [address] Gabby Linder PA Third trimester ([facility]); 34 weeks gestation of ([facility])09/12/2025amboo flowsheet [facility] [address] [place] [address] [place] [address] Gabby Linder PA 08/28/2025 1:50 PM EDTRoutine [facility] Pared[facility] [place] [place] [address] Gabby Linder PA Third trimester ([facility]); 32 weeks gestation of ([facility])08/28/2025amboo flowsheet [facility] [place] [place] [address] Gabby Linder PA 08/15/2025 11:20 AM EDTRoutine [facility] [place] [address] Kristy Goel NP Third trimester ([facility]); 30 weeks gestation of ([facility])5Clinisync Result Encounter [facility] External Department Unsolicited Kristy Goel NP 08/01/2025 3:00 PM EDTRoutine [facility] [address] [place] [address] [place] [address] Gabby Linder PA size inconsistent with dates ([facility]) (Primary Dx); Third trimester ([facility]); 28 weeks gestation of ([facility])08/01/2025amb flowsheet [facility] [address] [place] [address] [place] [phone] Gabby Linder PA from Last 3 Months Family History Medical HistoryRelationNameCommentsNo Known ProblemsBrother3 brothersCOVIDFather No Known ProblemsSister2 sistersRelationNameStatusCommentsBrotherAliveFather DeceasedMaternal GrandfatherAliveMaternal GrandmotherAliveMotherAlivePaternal GrandfatherDeceasedPaternal GrandmotherDeceasedSisterAlive Social History Tobacco UseTypesPacks/DayYears UsedDateSmoking Tobacco: Never Tobacco Cessation:Counseling Given: Not Answered Alcohol UseStandard Drinks/WeekCommentsYes0 (1 standard drink = 0.6 oz pure alcohol)Alcohol: monthly or less. Caffeine: noneEstimated Date of GcqrglxeCbfsejuzLzo88/15/2025Based on UltrasoundSex and Gender InformationValue Date RecordedSex Assigned at BirthNot on fileLegal LdsXzijxb52/15/2023 8:15 PM EDTGender IdentityNot on fileSexual OrientationNot on file Last Filed Vital Signs Vital SignReadingTime TakenCommentsBlood Tpjbujpb595/7610/24/2025 2:22 PM EST Pulse--Temperature--Respiratory Rate--Oxygen Saturation--Inhaled Oxygen Concentration--Jpydqv789 kg (259 lb 1.9 oz)10/24/2025 2:22 PM LFTFswvxd724.8 cm (5' 10 )05/29/2024 9:13 AM EDTBody Mass Index37.18005/29/2024 9:13 AM EDT Plan of Treatment Not on file Procedures Procedure NamePriorityDate/TimeAssociated DiagnosisCommentsPOCT URINALYSIS ZQGJKQAGSaosavy72/17/2025 4:52 PM EST Third trimester ([facility]) 40 weeks gestation of ([facility]) US OB BPP W NON-WOZDGX7710/23/2025 8:52 AM EST POCT URINALYSIS TPQTNUGBAlfnxky28/10/2025 8:46 AM EST 39 weeks gestation of ([facility]) POCT URINALYSIS LUPRLTSHTfxqomp14/02/2025 10:13 AM EST 38 weeks gestation of ([facility]) Third trimester ([facility]) STREP GP B CULTURE+CVSWGyaamjt27/20/2025 9:00 AM EST POCT URINALYSIS EIIJLTWHAlghgbp08/05/2025 1:41 PM EST Third trimester ([facility]) POCT URINALYSIS KGTQNMVTGryajdk79/21/2025 2:07 PM EDT 32 weeks gestation of ([facility]) POCT URINALYSIS DNAZPPHXDlewcsk40/08/2025 11:31 AM EDT 30 weeks gestation of ([facility]) US OB TRAPIJ6708/15/2025 7:51 AM EDT POCT URINALYSIS QYOIYQAPCmexafo12/24/2025 3:13 PM EDT Third trimester ([facility]) from Last 3 Months Results * POCT [...] Location / LateralityCollection Method / VolumeCollection TimeReceived WpdhAeqed26/17/2025 4:52 PM EST Narrative Authorizing ProviderResult TypeResult StatusCorey Servando DOPOINT OF CARE TEST ENTER/EDIT ORDERABLESFinal Result * OB BPP W NON-STRESS (10/23/2025 8:52 AM EST)Anatomical Region LateralityModalityOtherSpecimen (Source)Anatomical Location / Laterality Collection Method / VolumeCollection TimeReceived Time10/23/2025 8:52 AM EST Narrative 10/23/2025 8:55 AM EST [facility] ?[address] ? [place] [address] ? Ultrasound Report ? Signed ? Patient: ALEJO OVERTON ?MR#: [id number] ?? : 2000 ?Acct:[id number] ?? Age/Sex: 25 / F ?ADM Date: 10/22/25 ?? Loc: US ? Attending Dr: Gabby Linder ? Ordering Physician: Gabby Linder ?? Date of Service: 10/22/25 ?? Procedure(s): US OB BPP w non-stress ?? Accession Number(s): [id number] ? cc: Gabby Linder; Physician,Non-Staff M.D. ? [facility] ? [address] ? [place] [address] ? Patient Name: ?? ALEJO OVERTON ? MRN: [facility]:[id number] ? date: 2000 ?Sex: F ?? Assigned Patient Location: ?? Current Patient Location: ? Accession/Order Number: [id number] ?? Exam Date: 10/22/2025 ??19:58 ?Report Date: [...] Dictation Location: RADIO-PC-30 ? Electronically authenticated by: [id number] ??Y ?? Date: 10/23/2025 ??08:52 ? Dictated By: ?Yesenia Rios M.D. ? Signed By: ?12/16/25 0855 ? DD/ 0852 ? TD/TT: ? Cutting Machine Operator: Procedure Note Radiology, Radiologist, - 10/23/2025 [place] [address] Ultrasound Report Signed Patient: ALEJO OVERTON MMR#: [id number] : 2000Acct:[id number] Age/Sex: 25 / FADM Date: 10/22/25 Loc: US Attending Dr: Gabby Linder Ordering Physician: Gabby Linder Date of Service: 10/22/25 Procedure(s): US OB BPP w non-stress Accession Number(s): [id number] cc: Gabby Linder; Physician,Non-Staff M.DLuther The [place] [id number] Patient Name: ALEJO OVERTON MRN: [id number] date: 2000 Sex: F Assigned Patient Location: US Current Patient Location: Accession/Order Number: [id number] Exam Date: 10/22/2025 19:58 Report Date: 10/23/2025 [...] Rios M.D. 10/23/2025 8:52 AM Dictation Location: [place] [address] Electronically authenticated by: [id number] Y Date: 508:52 Dictated By: Yesenia Rios M.D. Signed By:10/23/2555 DD/ 1 TD/TT: Cutting Machine Operator: Authorizing ProviderResult TypeResult StatusAmy [place] PACLINISYNC IMAGINGFinal Result * STREP GP B [...] is noted.TBHSTREP GP B CULTURE+RFLX [facility]formed at: [facility]+[id number] [place], [place] [id number] GP B CULTURE+RFLXLab Director: Jason Barrera PhD, Phone: [phone] (Source)Anatomical Location / Laterality Collection Method / [...] EDT Narrative 08/15/2025 7:54 AM EDT [facility] ?[address] ? [place] [address] ? Ultrasound Report ? Signed ? Patient: ALEJO OVERTON ?MR#: [id number] ?? : 2000 ?Acct:[id number] ?? Age/Sex: 24 / F ?ADM Date: 08/14/25 ?? Loc: US ? Attending Dr: Kristy Goel ? Ordering Physician: Kristy Goel ?? Date of Service: 08/14/25 ?? Procedure(s): US OB growth ?? Accession Number(s): [id number] ? cc: Kristy Goel; Physician,Non-Staff M.D. ? [facility] ? [address] ? [place] [address] ? Patient Name: ?? ALEJO OVERTON ? MRN: [id number] ? date: 2000 ?Sex: F ?? Assigned Patient Location: ?? Current Patient Location: ? Accession/Order Number: [id number] ?? Exam Date: 08/14/2025 ??19:06 ?Report Date: [...] Dictation Location: RADIO-PC-02 ? Electronically authenticated by: [id number] ??Y ?? Date: 08/15/2025 ??07:51 ? Dictated By: ?Yesenia Rios M.D. ? Signed By: ?08/15/25 0754 ? DD/ 0751 ? TD/TT: ? Cutting Machine Operator: Procedure Note Radiology, Radiologist, MD - 08/15/[address] [address] Ultrasound Report Signed Patient: ALEJO OVERTON MMR#: [id number] : 2000Acct:[id number] Age/Sex: 24 / FADM Date: 08/14/25 Loc: US Attending Dr: Kristy Goel Ordering Physician: Kristy Goel Date of Service: 08/14/25 Procedure(s): US OB growth Accession Number(s): [id number] cc: Kristy Geol; Physician,Non-Staff M.Nicola [place] [id number] Patient Name: ALEJO OVERTON MRN: [id number] date: 2000 Sex: F Assigned Patient Location: Current Patient Location: Accession/Order Number: [id number] Exam Date: 08/14/2025 19:06 Report Date: 08/15/2025 [...] Rios M.D. 08/15/2025 7:51 AM Dictation Location: [place] [address] Electronically authenticated by: [id number] Y Date: 7:51 Dictated By: Yesenia Rios M.D. Signed By:08/15/25 0754 DD/ 0751 TD/TT: Cutting Machine Operator: Authorizing ProviderResult TypeResult StatusKrisyt Goel NPCLINISYNC IMAGING Final Result from Last 3 Months Insurance Care Teams Team MemberRelationshipSpecialtyStart DateEnd Date Mc Ray MD [address] [place] [address] PCP - GeneralRegional Medical Centerly Medicine05/27/23
--- OUTSIDE RECORDS SUMMARY | 2025-10-27 18:22 | XMS_ITS | Encounter Summary ---
Author Organization [facility] Address [address] [place] [address] Care Team Providers Care Cake Washer Name Role Phone Mc Ray MD Primary Care Provider [phone] Encounter Details DateTypeDepartmentCare Team (Latest Contact Info)Dtdvbylembd86/10/2025amboo flowsheet [facility] [address] [place] [address] Gabby Contreras PA [address] [place], [facility] Social History Tobacco UseTypesPacks/DayYears UsedDateSmoking Tobacco: NeverAlcohol UseStandard Drinks/WeekCommentsYes0 (1 standard drink = 0.6 oz pure alcohol)Alcohol: monthly or less. Caffeine: noneEstimated Date of NaevpgazMvlfhyosKso76/15/2025 Based on UltrasoundSex and Gender InformationValueDate RecordedSex Assigned at BirthNot on fileLegal GbiUsmvrf94/15/2023 8:15 PM EDTGender IdentityNot on file Sexual OrientationNot on filedocumented as of this encounter Plan of Treatment Not on file documented as of this encounter Visit Diagnoses Not on filedocumented in this encounter Care Teams Team MemberRelationshipSpecialtyStart DateEnd Date Mc Rya MD [address] [place] [address] PCP - GeneralFamily Medicine05/27/23documented as of this encounter
--- OUTSIDE RECORDS SUMMARY | 2025-10-27 18:22 | XMS_ITS | Encounter Summary ---
Author Organization [facility] Address [address] [place] [address] Care Team Providers Care Production Assembler Name Role Phone Mc Ray MD Primary Care Provider [phone] Encounter Details DateTypeDepartmentCare Team (Latest Contact Info)Azveortvsbw21/17/2025Bamboo flowsheet [facility] [address] [place] [address] Alexsadner Al DO [address] [facility] [address] [address] [place] [id number] Social History Tobacco UseTypesPacks/DayYears UsedDateSmoking Tobacco: NeverAlcohol UseStandard Drinks/WeekCommentsYes0 (1 standard drink = 0.6 oz pure alcohol)Alcohol: monthly or less. Caffeine: noneEstimated Date of TgyielgtAjiruvjfIwr12/15/2025 Based on UltrasoundSex and Gender InformationValueDate RecordedSex Assigned at BirthNot on fileLegal GuyXrvmhh45/15/2023 8:15 PM EDTGender IdentityNot on file Sexual OrientationNot on filedocumented as of this encounter Plan of Treatment Not on file documented as of this encounter Visit Diagnoses Not on filedocumented in this encounter Care Teams Team MemberRelationshipSpecialtyStart DateEnd Date Mc Ray MD [address] [place] [address] PCP - GeneralFamily Medicine05/27/23documented as of this encounter
[2025-10-27 19:18] LABS: Hematocrit 32.0 % (36.0-48.0); Hemoglobin 10.4 g/dL (12.0-16.0); Mean Corpuscular HGB Conc 32.5 g/dL (29.9-35.2); Mean Corpuscular Hemoglobin 25.5 pg (26.7-34.0); Mean Corpuscular Volume 78.4 fL (81.0-99.0); Platelet Count 240 10^3/uL (150-450); Red Blood Count 4.08 10^6/uL (4.20-5.40); White Blood Count 9.2 10^3/uL (4.0-11.0)
[2025-10-27 19:31] LABS: Cannabinoid Screen Urine NEGATIVE (NEGATIVE); Methamphetamines Screen Urine NEGATIVE (NEGATIVE); Tricyclic Antidepressant Urine NEGATIVE (NEGATIVE)
[2025-10-27] MEDS: MISOPROSTOL 100 MCG TABLET 25 MCG VAGINAL ×2 (19:54→23:04)
[2025-10-28] VITALS (34 sets, daily range): BP systolic 90–121; BP diastolic 41–75; PULSE 62–88; TEMP 36.6–36.7; O2SAT 89–98
[2025-10-28] MEDS: MISOPROSTOL 100 MCG TABLET 25 MCG VAGINAL (02:07)
[2025-10-28] MEDS: 0.9 % SODIUM CHLORIDE 1,000 ML 125 ML IV (04:30)
[2025-10-28] MEDS: CITRIC ACID/SODIUM CITRATE 30 ML SOLUTION ORACIT SHOHL'S SOLN PO (06:34)
[2025-10-28] MEDS: METOCLOPRAMIDE HCL 10 MG/2 ML VIAL IVP (06:34)
[2025-10-28] MEDS: FAMOTIDINE/PF 20 MG/2 ML VIAL IV (06:34)
[2025-10-28] MEDS: CEFAZOLIN SODIUM/DEXTROSE,ISO 2 GM/50 ML PIGGYBACK IV ×2 (06:35→11:58)
--- NOTE | 2025-10-28 07:31 | P.ON_ITS ---
Brief Operative Note Date of procedure: 10/28/25 Pre-op diagnosis general: iup at 40 6/7wks, non reassuring heart tones r emote from delivery Post-op diagnosis: same as pre-op Procedure: NAME OF PROCEDURE: [ section ] PROCEDURE: Patient was taken back to the Operating Room where she was given a spinal anesthesia with Duramorph without difficulty. She was prepped and draped in the normal sterile fashion. A Pfannenstiel skin incision was then made 2 cm above the symphysis pubis and carried down to underlying rectus fascia using a Bovie. The fascia was incised in the midline and extended laterally using Colorado scissors. Two Mario clamps were placed on the superior aspect of the fascia and dissected off the underlying rectus muscles. The same was performed on the inferior aspect as well. The muscles were then in the midline. Peritoneum was identified and entered bluntly. The peritoneum was then extended superiorly and inferiorly with good visualization of the bladder. The bladder blade was inserted. A low transverse incision was made on the patient's uterus and extended laterally digitally. The infant was then delivered atraumatically after the bladder blade was removed in the cephalic position. The cord was clamped and cut. Cord blood was obtained. The infant was handed off to awaiting team. The patient's placenta was spontaneously delivered. The uterus was then exteriorized. The uterus was cleared of all clots and debris. The bladder blade was reinserted. The patient's uterine incision was closed using #0 Vicryl in a running lock fashion. Excellent hemostasis was assured. The uterus was then returned to the patient's abdomen. The patient's abdomen was copiously irrigated using warm saline. Peritoneal gutters were cleared of all clots and debris. Again excellent hemostasis was assured. The patient's peritoneum was closed using 3-0 Vicryl in a running fashion. The patient's fascia was closed using #0 Vicryl in a running fashion. The patient's skin was closed using 4-0 Vicryl subcuticularly. The patient tolerated the procedure well. Sponge, lap, and needle counts were correct x2. The patient was taken to the Recovery Room in stable condition. Anesthesia: spinal Surgeon: Alexsander Al Manufacturing Electrician: Audrey Groves Estimated blood loss (mL): 575 Pathology: none sent Condition: stable Disposition: PACU Urinary Catheter Management Urinary Catheter Management Urethral: Cath placed during this visit: no
--- NOTE | 2025-10-28 07:32 | PM.OBPRCCS ---
Procedure Pre-op/Post-op diagnoses: Pre-Op/Post-Op Diagnoses Operation Date: 10/28/25 06:40 <No data on this case meets the specified criteria> Procedure: Procedures Operation Date: 10/28/25 06:40 Actual Procedure Side Surgeon p Not Applicable Alexsander Al DO Gold Wheel Blocker And Polisher: Audrey Groves Estimated blood loss (mL): 575 Disposition: floor Anesthesia type: Spinal
[2025-10-28] MEDS: KETOROLAC TROMETHAMINE 30 MG/ML VIAL IVP ×2 (15:30→23:37)
[2025-10-28] MEDS: ENOXAPARIN SODIUM 40 MG/0.4 ML SYRINGE SUBQ (20:01)
[2025-10-29] VITALS (7 sets, daily range): BP systolic 108–128; BP diastolic 61–93; PULSE 71–74; TEMP 36.3–36.8; O2SAT 95–99
[2025-10-29 05:50] LABS: Hematocrit 25.2 % (36.0-48.0); Hemoglobin 8.2 g/dL (12.0-16.0); Immature Granulocytes Abs Auto 0.07 10^3/uL (0.00-0.03); Immature Granulocytes Pct Auto 0.7 % (0.0-0.5); Lymphocytes Absolute Auto 2.2 10^3/uL (1.2-3.8); Mean Corpuscular HGB Conc 32.5 g/dL (29.9-35.2); Mean Corpuscular Hemoglobin 25.7 pg (26.7-34.0); Mean Corpuscular Volume 79.0 fL (81.0-99.0); Platelet Count 186 10^3/uL (150-450); Red Blood Count 3.19 10^6/uL (4.20-5.40); White Blood Count 10.4 10^3/uL (4.0-11.0)
[2025-10-29] MEDS: DOCUSATE SODIUM 100 MG CAPSULE PO ×2 (08:38→20:05)
[2025-10-29] MEDS: KETOROLAC TROMETHAMINE 30 MG/ML VIAL IVP ×2 (08:38→18:02)
--- NOTE | 2025-10-29 14:32 | PM.OBPN ---
OB - PN: Subj Subjective Patient comments: no complaints and pain well controlled [place] status: doing well Exam Constitutional Vital Signs, click to edit/add: Last Vital Signs Temp 98.2 F 10/29/25 04:54 Pulse 69 10/28/25 15:25 Resp 15 10/29/25 04:52 BP 116/62 10/29/25 08:35 Pulse Ox 98 10/28/25 15:25 O2 Del Method Room Air 10/29/25 09:08 Documenting provider has reviewed patient's vital signs: yes Common normals: no apparent distress Respiratory Common normals: normal respiratory effort and clear to auscultation bilaterally Cardio Common normals: regular rate and regular rhythm GI Common normals: Normal to inspection, nondistended, normoactive bowel sounds present Extremity Common normals: no clubbing, cyanosis or edema and no calf tenderness Results Labs Labs: Short CBC 10/29/25 Range/Units 05:40 WBC 10.4 (4.0-11.0) 10^3/uL Hgb 8.2 L (12.0-16.0) g/dL Hct 25.2 L (36.0-48.0) % Plt Count 186 (150-450) 10^3/uL Urinary Catheter Management Urinary Catheter Management Urethral: Cath placed during this visit: yes, but has since been removed by the nurse Removal date: 10/28/25 Removal time: 17:45 OB - PN: A/P Plan - day: 1 Plan: routine postop care Time Spent with Patient Time: Total time spent is greater than 50% in coordination of care (as documented) at patient's floor/unit and/or counseling patient: Total time spent with greater than 50% in coordination of care (as documented) at patient's floor/unit and/or counseling patient: less than 15 minutes
--- NOTE | 2025-10-29 19:04 | PC.NURSE ---
pt tearful and questioning if she is not feeding infant enough and if is starving at breast. is very frustrated at breast and will not sustain latch at breast. Educated pt on proper pumping with hand pump and with electric pump. Educated pt on normal behaviors with , options discussed with feeding varieties. Pt chose that she would like to continue to nurse , maybe pump and feed. Encouraged pt that nurse will support pt with which ever way she choses to feed and assist her. She needs to be comfortable and able to feed infant the same at home as in the hospital. pt shown the circles for typical amounts needed for feeds, weight is monitored as is infant behaviors and I&O. pt hand pumps 1.5 ml of colostrum in 3 minutes. given to via syringe. pt then set up with electric pump and educated on usage, verbalizes understanding.
[2025-10-29] MEDS: ENOXAPARIN SODIUM 40 MG/0.4 ML SYRINGE SUBQ (20:05)
[2025-10-30 05:47] VITALS: BP 117/66; PULSE 69
[2025-10-30] MEDS: IBUPROFEN 400 MG TABLET 800 MG PO (05:51)
--- NOTE | 2025-10-30 07:29 | PM.OBPN ---
OB - PN: Subj Subjective Patient comments: no complaints and pain well controlled [place] status: doing well Exam Constitutional Vital Signs, click to edit/add: Last Vital Signs Temp 97.3 F L 10/29/25 18:08 Pulse 69 10/30/25 05:47 Resp 16 10/30/25 05:45 BP 117/66 10/30/25 05:47 Pulse Ox 98 10/28/25 15:25 O2 Del Method Room Air 10/30/25 05:45 Documenting provider has reviewed patient's vital signs: yes Common normals: no apparent distress Respiratory Common normals: normal respiratory effort and clear to auscultation bilaterally Cardio Common normals: regular rate and regular rhythm GI Common normals: Normal to inspection, nondistended, normoactive bowel sounds present Extremity Common normals: no clubbing, cyanosis or edema and no calf tenderness Urinary Catheter Management Urinary Catheter Management Urethral: Cath placed during this visit: yes, but has since been removed by the nurse Removal date: 10/28/25 Removal time: 17:45 OB - PN: A/P Plan - day: 2 Plan: routine postop care, discharge home and other (fu 1wk) Time Spent with Patient Time: Total time spent is greater than 50% in coordination of care (as documented) at patient's floor/unit and/or counseling patient: Total time spent with greater than 50% in coordination of care (as documented) at patient's floor/unit and/or counseling patient: less than 15 minutes
[2025-10-30] MEDS: DOCUSATE SODIUM 100 MG CAPSULE PO (08:55)
[2025-10-30 09:00] VITALS: TEMP 36.3
[2025-10-30 12:05] VITALS: TEMP 36.4
[2025-10-30 12:07] VITALS: BP 140/66; PULSE 86
== END 2025-10-30 15:50 | disposition home or self-care (01) | DRG 788 ==
PROVIDERS: Admitting Provider Obstetrics & Gynecology; Visit Provider Obstetrics & Gynecology
PROC: 10D00Z1 Extraction of Products of Conception, Low, Open Approach (ICD-10-PCS; CPT 59514; principal; 2025-10-28 06:40)
DX: O76 Abnormality in fetal heart rate and rhythm complicating labor and delivery (principal); Z37.0 Single live birth; Z3A.40 40 weeks gestation of pregnancy
CPT/HCPCS: 36415; 59050; 80307; 85025; 85027; 86850; 86900; 86901; 94667; 94668; J0690; J1650; J1885; J2274; J2371; J2405; J2590; J2765; J3490

== ENCOUNTER 2025-11-05 08:43 | Outpatient (OUT) | payer BC, SELFPAY ==
--- OUTSIDE RECORDS SUMMARY | 2025-10-24 14:00 | XMS_ITS | Encounter Summary ---
Author Organization [facility] Address [address] [place] [address] Care Team Providers Care Afternoon Nanny Name Role Phone Mc Ray MD Primary Care Provider Reason for Visit * ReasonCommentsRoutine Visit Encounter Details DateTypeDepartmentCare Team (Latest Contact Info)Szqimvbvdxp84/17/2025 2:00 PM ESTRoutine [facility] [address] [place] [address] Alexsander Al DO [address] [facility] [address] [place], [place] [id number] Third trimester ([facility]); 40 weeks gestation of ([facility]) Social History Tobacco UseTypesPacks/DayYears UsedDateSmoking Tobacco: NeverAlcohol UseStandard Drinks/WeekCommentsYes0 (1 standard drink = 0.6 oz pure alcohol)Alcohol: monthly or less. Caffeine: noneEstimated Date of InuzzuopCrovjzvuIij49/15/2025 Based on UltrasoundSex and Gender InformationValueDate RecordedSex Assigned at BirthNot on fileLegal VuiXacsdw98/15/2023 8:15 PM EDTGender IdentityNot on file Sexual OrientationNot on filedocumented as of this encounter Last Filed Vital Signs Vital SignReadingTime TakenCommentsBlood Neebbjfk934/7610/24/2025 2:22 PM EST Pulse--Temperature--Respiratory Rate--Oxygen Saturation--Inhaled Oxygen Concentration--Quphym898 kg (259 lb 1.9 oz)10/24/2025 2:22 PM ESTHeight--Body Mass Index37.18005/29/2024 9:13 AM EDTdocumented in this encounter Progress Notes * Kristy Goel NP - 10/24/2025 2:00 PM EST Reason for Appointment: Patient ID: Janet Stock is a 25 y.o. female who presents for Routine Visit Patient presents today for Return OB appointment. MEDICATIONS Current Outpatient Medications Medication Instructions Vit w/Od-Yfxczxbes-EZ (PNV PO) 1 tablet, Daily in the [...] nursing note reviewed. Exam conducted with a dry cleaner present. Vitals: Estimated body mass index is 37.18 kg/m?? as calculated from the following: Height as of 05/29/24: 5' 10 . Weight as of this encounter: 259 lb 1.9 oz. BP: 122/76 Patient's last menstrual period was 01/04/2025. Assessment/Plan ICD-10-CM 1. Third trimester ([facility]) Z34.93 POCT urinalysis dipstick manually resulted 2. 40 weeks gestation of ([facility]) Z3A.40 POCT urinalysis dipstick manually resulted Assessment/Plan Return OB: Patient presents today for a routine obstetrics appointment. Patient is currently 40w2d . Patient states she is doing well but has complaints of being tired due to current . Patient has verbalizes frequent movement. labor precautions was discussed/given and patient was instructed to perform kick counts three times a day. IOL consents signed pt to report to [facility] Orders Placed This Encounter Procedures POCT urinalysis dipstick manually resulted Follow Up: Patient is to return and plan to move forward with induction as scheduled Documented by Kristy Goel NP on behalf of: Alexsander Al DO documented in this encounter Plan of Treatment Not on file documented as of this encounter Procedures Procedure NamePriorityDate/TimeAssociated DiagnosisCommentsPOCT URINALYSIS CBFDMWCVBefbxqr18/17/2025 4:52 PM EST Third trimester ([facility]) 40 weeks gestation of ([facility]) documented in this encounter Results * POCT urinalysis dipstick manually resulted (10/24/2025 4:52 PM EST)Component ValueRef RangeTest MethodAnalysis TimePerformed AtPathologist SignatureColor, UAYellowClarity, UAClearGlucose, UANegativeNegative - 2000(110) ++++ mg/dL Bilirubin, UANegativeNegative - 4(70) +++ mg/dLKetones, UANegativeNegative - 160(16) ++++ mg/dLSpec Grav, UA1.0201 - 1.03Blood, UANegativeNegative - 50 Ming/mcLpH, UA5.55 - 9Protein, UANegativeNegative - 2000(20) ++++ mg/dL Urobilinogen, UA1.00.2 - 12 mg/dLLeukocytes, UANegativeNegative - 500+++ Manpreet/mcLNitrite, UANegativeNegative - PositiveSpecimen (Source)Anatomical Location / LateralityCollection Method / VolumeCollection TimeReceived Time Urine10/24/2025 4:52 PM EST Narrative Authorizing ProviderResult TypeResult StatusCorey Servando DOPOINT OF CARE TEST ENTER/EDIT ORDERABLESFinal Result documented in this encounter Visit Diagnoses Diagnosis Third trimester ([facility]) state, incidental 40 weeks gestation of ([facility]) documented in this encounter Care Teams Team MemberRelationshipSpecialtyStart DateEnd Date Mc Ray MD [address] [place] [address] PCP - GeneralFamily Medicine05/27/23documented as of this encounter
--- OUTSIDE RECORDS SUMMARY | 2025-11-05 08:49 | XMS_ITS | Encounter Summary ---
Author Organization [facility] Address [address] [place] [address] Care Team Providers Care Instructor Of Spanish Name Role Phone Mc Ray MD Primary Care Provider [phone] Encounter Details DateTypeDepartmentCare Team (Latest Contact Info)Nzxikclrhua22/17/2025Bamboo flowsheet [facility] [address] [facility] [place] [address] Alexsander Al DO [address] [facility] [address] [place] [id number] Social History Tobacco UseTypesPacks/DayYears UsedDateSmoking Tobacco: NeverAlcohol UseStandard Drinks/WeekCommentsYes0 (1 standard drink = 0.6 oz pure alcohol)Alcohol: monthly or less. Caffeine: noneEstimated Date of MwupjmngSmcujwvrOwz30/15/2025 Based on UltrasoundSex and Gender InformationValueDate RecordedSex Assigned at BirthNot on fileLegal QkvLjjhud28/15/2023 8:15 PM EDTGender IdentityNot on file Sexual OrientationNot on filedocumented as of this encounter Plan of Treatment Not on file documented as of this encounter Visit Diagnoses Not on filedocumented in this encounter Care Teams Team MemberRelationshipSpecialtyStart DateEnd Date Mc Ray MD [address] [place] [address] PCP - GeneralFamily Medicine05/27/23documented as of this encounter
--- OUTSIDE RECORDS SUMMARY | 2025-11-05 08:49 | XMS_ITS | Encounter Summary ---
Author Organization [facility] Address [address] [place] [address] Care Team Providers Care Automatic Steel Tie Adjuster Name Role Phone Mc Ray MD Primary Care Provider Encounter Details DateTypeDepartmentCare Team (Latest Contact Info)Vmihbarbjuv63/20/2025Clinisync Result Encounter [facility] External Department Unsolicited Alexsander Al, DO [address] [facility] [place] [address] Social History Tobacco UseTypesPacks/DayYears UsedDateSmoking Tobacco: NeverAlcohol UseStandard Drinks/WeekCommentsYes0 (1 standard drink = 0.6 oz pure alcohol)Alcohol: monthly or less. Caffeine: noneEstimated Date of UqlabeytUvwuobyzFjd06/15/2025 Based on UltrasoundSex and Gender InformationValueDate RecordedSex Assigned at BirthNot on fileLegal TswGhhsdp71/15/2023 8:15 PM EDTGender IdentityNot on file Sexual OrientationNot on filedocumented as of this encounter Plan of Treatment Not on file documented as of this encounter Procedures Procedure NamePriorityDate/TimeAssociated DiagnosisCommentsTBH DRUG SCREEN RAPID (URINE)Iflkgzp2910/27/2025 6:56 PM EST HMHP CBC WITH PLATELET NO CSMGCUXWHSVQZcrqetv70/20/2025 6:55 PM EST documented in this encounter Results * TB DRUG SCREEN RAPID (URINE) (10/27/2025 6:56 PM EST)ComponentValueRef Range Test MethodAnalysis TimePerformed AtPathologist SignatureCANNABINOID SCREEN URINENEGATIVENEGATIVETBHPHENCYCLIDINE SCREEN URINENEGATIVENEGATIVETBHCOCAINE SCREEN URINENEGATIVENEGATIVETBHMETHAMPHETAMINES SCREEN URINENEGATIVENEGATIVE TBHOPIATE SCREEN URINENEGATIVENEGATIVETBHAMPHETAMINE SCREEN URINENEGATIVE NEGATIVETBHBENZODIAZEPINES SCREEN URINENEGATIVENEGATIVETBHTRICYCLIC ANTIDEPRESSANT URINENEGATIVENEGATIVETBHMETHADONE SCREEN URINENEGATIVENEGATIVE TBHBARBITURATES SCREEN URINENEGATIVENEGATIVETBHOXYCODONE SCREEN URINENEGATIVE NEGATIVETBHBUPRENORPHINE SCREEN URINENEGATIVENEGATIVETBHComment: DRUG CLASS TEST SYSTEM CUT-OFF CONCENTRATIONS ARE FOLLOWS: AMP (Amphetamine): 500 ng/mL BAR (Barbiturates): 200 ng/mL BZO (Benzodiazepines): 150 ng/mL BUP (Buprenorphine): 10 ng/mL SUZI (Cocaine): 150 ng/mL mAMP (Methamphetamine): 500 ng/mL MTD (Methadone): 200 ng/mL OPI (Opiates): 100 ng/mL OXY (Oxycodone): 100 ng/mL PCP (Phencyclidine): 25 ng/mL THC (Cannabinoids): 50 ng/mL TCA (Trycyclic Antidepressants): 300 ng/mL Specimen (Source)Anatomical Location / LateralityCollection Method / Volume Collection TimeReceived Time10/27/2025 6:56 PM EST10/27/2025 7:15 PM EST Narrative [facility] - 10/27/2025 7:31 PM EST Authorizing ProviderResult TypeResult StatusCorey Servando DOCLINISYNCFinal Result Performing OrganizationAddressCity/State/ZIP CodePhone Number [facility] * (ABNORMAL) HMHP CBC WITH PLATELET NO DIFFERENTIAL (10/27/2025 6:55 PM EST) ComponentValueRef RangeTest MethodAnalysis TimePerformed AtPathologist SignatureTBH WBC9.24.0 - 11.0 10 3/uLTBHTBH RBC4.08(L)4.20 - 5.40 10 6/uLTBH TBH HGB10.4(L)12.0 - 16.0 g/dLTBHTBH HCT32.0(L)36.0 - 48.0 %TBHTBH MCV78.4(L) 81.0 - 99.0 fLTBHTBH MCH25.5(L)26.7 - 34.0 pgTBHTBH MCHC32.529.9 - 35.2 g/dL TBHTBH RDW13.711.0 - 15.0 %TBHTBH [id number] - 450 10 3/uLTBHTBH MPV9.99.5 - 13.5 fLTBHSpecimen (Source)Anatomical Location / LateralityCollection Method / VolumeCollection TimeReceived Time10/27/2025 6:55 PM EST10/27/2025 7:15 PM EST Narrative [facility] - 10/27/2025 7:19 PM EST Authorizing ProviderResult TypeResult StatusCorey Servando DOCLINISYNCFinal Result Performing OrganizationAddressCity/State/ZIP CodePhone Number [facility] documented in this encounter Visit Diagnoses Not on filedocumented in this encounter Care Teams Team MemberRelationshipSpecialtyStart DateEnd Date Mc Ray MD [address] [place] [address] PCP - GeneralFamily Medicine05/27/23documented as of this encounter
--- OUTSIDE RECORDS SUMMARY | 2025-11-05 08:49 | XMS_ITS | Encounter Summary ---
Author Organization [facility] Address [address] [place] [address] Care Team Providers Care Cook Dinner Name Role Phone Mc Ray MD Primary Care Provider [phone] Encounter Details DateTypeDepartmentCare Team (Latest Contact Info)Oglwdcodrum30/16/2025Clinisync Result Encounter [facility] External Department Unsolicited Gabby Linder PA [address] [place] [address] [place] [address] Social History Tobacco UseTypesPacks/DayYears UsedDateSmoking Tobacco: NeverAlcohol UseStandard Drinks/WeekCommentsYes0 (1 standard drink = 0.6 oz pure alcohol)Alcohol: monthly or less. Caffeine: noneEstimated Date of QirrgffxEpyjfgquSae59/15/2025 Based on UltrasoundSex and Gender InformationValueDate RecordedSex Assigned at BirthNot on fileLegal FtfPlgzlm72/15/2023 8:15 PM EDTGender IdentityNot on file Sexual OrientationNot on filedocumented as of this encounter Plan of Treatment Not on file documented as of this encounter Procedures Procedure NamePriorityDate/TimeAssociated DiagnosisCommentsUS OB BPP W NON-PLPTBV9010/23/2025 8:52 AM EST documented in this encounter Results * US OB BPP W NON-STRESS (10/23/2025 8:52 AM EST)Anatomical Region LateralityModalityOtherSpecimen (Source)Anatomical Location / Laterality Collection Method / VolumeCollection TimeReceived Time10/23/2025 8:52 AM EST Narrative 10/23/2025 8:55 AM EST [facility] ?[address] ? [place], [facility] ? Ultrasound Report ? Signed ? Patient: BROOKLYNNJANET ?MR#: [id number] ?? : 2000 ?Acct:[id number] ?? Age/Sex: 25 / F ?ADM Date: 12/15/25 ?? Loc: [place] ? Attending Dr: Gabby Linder ? Ordering Physician: Gabby Linder ?? Date of Service: 10/22/25 ?? Procedure(s): US OB BPP w non-stress ?? Accession Number(s): [id number] ? cc: Gabby Linder; Physician,Non-Staff M.D. ? [facility] ? [address] ? [place] [address] ? Patient Name: ?? JANET STOCK ? MRN: [facility]:[id number] ? date: 2000 ?Sex: F ?? Assigned Patient Location: [place] ?? Current Patient Location: ? Accession/Order Number: [id number] ?? Exam Date: 10/22/2025 ??19:58 ?Report Date: [...] Dictation Location: RADIO-PC-30 ? Electronically authenticated by: [id number] ??Y ?? Date: 10/23/2025 ??08:52 ? Dictated By: ?Yesenia Rios M.D. ? Signed By: ?/16/ 0855 ? DD/DT: /16/ 0852 ? TD/TT: ? Senior Product Development Engineer: Procedure Note Radiology, Radiologist, - 10/23/[address] [address] Ultrasound Report Signed Patient: JANET STOCK MMR#: [id number] : 2000Acct:[id number] Age/Sex: 25 / FADM Date: 10/22/25 Loc: [place] Attending Dr: Gabby Linder Ordering Physician: Gabby Linder Date of Service: 10/22/25 Procedure(s): US OB BPP w non-stress Accession Number(s): [id number] cc: Gabby Linder; Physician,Non-Staff M.Nicola The [address] [address] Patient Name: JANET STOCK MRN: [facility]:[id number] date: 2000 Sex: F Assigned Patient Location: [place] Current Patient Location: Accession/Order Number: [id number] Exam Date: 10/22/2025 19:58 Report Date: 10/23/2025 [...] Rios M.D. 10/23/2025 8:52 AM Dictation Location: [place] [address] Electronically authenticated by: [id number] Y Date: 508:52 Dictated By: Yesenia Rios M.D. Signed By:10/23/2555 DD/ 1 TD/TT: Senior Product Development Engineer: Authorizing ProviderResult TypeResult StatusAmy Stewart PACLHELEN KELLER HOSPITALYNC IMAGINGFinal Result documented in this encounter Visit Diagnoses Not on filedocumented in this encounter Care Teams Team MemberRelationshipSpecialtyStart DateEnd Date Mc Ray MD [address] [place] [address] PCP - GeneralFamily Medicine05/27/23documented as of this encounter
--- OUTSIDE RECORDS SUMMARY | 2025-11-05 08:49 | XMS_ITS | Encounter Summary ---
Author Organization [facility] Address [address] [place] [address] Care Team Providers Care Information Technology Security Analyst Name Role Phone Mc Ray MD Primary Care Provider Encounter Details DateTypeDepartmentCare Team (Latest Contact Info)Uzijoumhdej57/22/2025Clinisync Result Encounter [facility] External Department Unsolicited Alexsander Al, DO [address] [facility] [place] [place] [address] Social History Tobacco UseTypesPacks/DayYears UsedDateSmoking Tobacco: NeverAlcohol UseStandard Drinks/WeekCommentsYes0 (1 standard drink = 0.6 oz pure alcohol)Alcohol: monthly or less. Caffeine: noneEstimated Date of CjiocgcqOqszbncmAfn00/15/2025 Based on UltrasoundSex and Gender InformationValueDate RecordedSex Assigned at BirthNot on fileLegal BjqBnnqmt51/15/2023 8:15 PM EDTGender IdentityNot on file Sexual OrientationNot on filedocumented as of this encounter Plan of Treatment Not on file documented as of this encounter Procedures Procedure NamePriorityDate/TimeAssociated DiagnosisCommentsALL CBC WITH AUTO WKYXDwiepjw72/22/2025 5:40 AM EST documented in this encounter Results * (ABNORMAL) ALL CBC WITH AUTO DIFF (10/29/2025 5:40 AM EST)ComponentValueRef RangeTest MethodAnalysis TimePerformed AtPathologist SignatureTBH WBC10.44.0 - 11.0 10 3/uLTBHTBH RBC3.19(L)4.20 - 5.40 10 6/uLTBHTBH HGB8.2(L)12.0 - 16.0 g/dLTBHTBH HCT25.2(L)36.0 - 48.0 %TBHTBH MCV79.0(L)81.0 - 99.0 fLTBHTBH MCH 25.7(L)26.7 - 34.0 pgTBHTBH MCHC32.529.9 - 35.2 g/dLTBHTBH RDW13.611.0 - 15.0 %TBHTBH [id number] - 450 10 3/uLTBHTBH MPV9.99.5 - 13.5 fLTBHNEUTROPHILS PERCENT AUTO70.443.0 - 75.0 %TBHLYMPHOCYTES PERCENT AUTO21.420.5 - 60.0 %TBH MONOCYTES PERCENT AUTO6.81.7 - 12.0 %TBHTBH EO %0.5(L)0.9 - 7.0 %TBHBASOPHILS PERCENT AUTO0.20.2 - 2.0 %TBHIMMATURE GRANULOCYTES PCT AUTO0.7(H)0.0 - 0.5 % TBHNEUTROPHILS ABSOLUTE AUTO7.3(H)1.4 - 6.5 10 3/uLTBHLYMPHOCYTES ABSOLUTE AUTO2.21.2 - 3.8 10 3/uLTBHMONOCYTES ABSOLUTE AUTO0.70.3 - 0.8 10 3/uLTBHTBH EO #0.10.0 - 0.7 10 3/uLTBHBASOPHILS ABSOLUTE AUTO0.00.0 - 0.1 10 3/uLTBH IMMATURE GRANULOCYTES ABS AUTO0.07(H)0.00 - 0.03 10 3/uLTBHSpecimen (Source) Anatomical Location / LateralityCollection Method / VolumeCollection Time Received Time10/29/2025 5:40 AM EST10/29/2025 5:48 AM EST Narrative [facility] - 10/29/2025 5:51 AM EST Authorizing ProviderResult TypeResult StatusCorey Servando DOCLINISYNCFinal Result Performing OrganizationAddressCity/State/ZIP CodePhone Number [facility] documented in this encounter Visit Diagnoses Not on filedocumented in this encounter Care Teams Team MemberRelationshipSpecialtyStart DateEnd Date Mc Ray MD [address] [facility] [address] PCP - GeneralFamily Medicine05/27/23documented as of this encounter
--- OUTSIDE RECORDS SUMMARY | 2025-11-05 08:49 | XMS_ITS | Clinical Summary ---
Author Organization [facility] Address [address] [place] [address] Care Team Providers Care Steward/Stewardess Smoke Room Name Role Phone Mc Ray MD Primary Care Provider [phone] Allergies No known active allergies Medications MedicationSigDispense QuantityRefillsLast FilledStart DateEnd DateStatus Vit w/Ek-Xdlejdxzh-EA (PNV PO) Take 1 tablet by mouth Daily in the MorningActive Encounters DateTypeDepartmentCare ZzmwWxhbqrysggu94/22/2025linisync Result Encounter [facility] External Department Unsolicited Alexsander Al, 5Clinisync Result Encounter [facility] External Department Unsolicited Alexsander Al, DO 10/24/2025 2:00 PM ESTRoutine [facility] [address] [address] [place] [address] Alexsander Al, DO Third trimester ([facility]); 40 weeks gestation of ([facility])5Bamboo flowsheet [facility] [address] [place] [address] Alexsander Al DO 5Clinisync Result Encounter [facility]OMS External Department Unsolicited Gabby Linder PA 10/17/2025 8:30 AM ESTRoutine [facility] [address] [place] [address] Gabby Linder PA 39 weeks gestation of ([facility]); Post-term , 40-42 weeks of gestation ([facility]); Third trimester ([facility])5Abstract [facility] [address] [place] [place] [address] Alexsander Al, 5Bamboo flowsheet [facility] [address] [place] [address] Gabby Linder PA 10/09/2025 10:00 AM ESTRoutine [facility] TOBIASN [address] [place] [address] Alexsander Al, 38 weeks gestation of ([facility]); Third trimester ([facility])10/09/2025amboo flowsheet [facility] LEGYKaren [address] [place] [address] Alexsander Al, 10/02/2025 8:50 AM ESTRoutine [facility] TOBI[facility]N [address] [place] [address] Gabby Linder PA 37 weeks gestation of ([facility]); Third trimester ([facility])10/02/2025amboo flowsheet [facility] [address] [place] [address] Gabby Linder PA 09/27/2025 8:50 AM ESTRoutine [facility] [address] [place] [address] Alexsander Al, Third trimester ([facility]); 36 weeks gestation of ([facility])09/27/2025linisync Result Encounter [facility] External Department Unsolicited Alexsander Al, 09/27/2025amboo flowsheet [facility] [address] [place], [facility] Alexsander Al DO 09/12/2025 1:30 PM ESTRoutine [facility] [address] [place] [address] Gabby Linder PA Third trimester ([facility]); 34 weeks gestation of ([facility])5Bamboo flowsheet [facility] [address] [place] [address] [place] [address] Gabby Linder PA 08/28/2025 1:50 PM EDTRoutine [facility] [place] [address] Gabby Linder PA Third trimester ([facility]); 32 weeks gestation of ([facility])5Bamboo flowsheet [facility] [address] [place] [address] [place] [address] Gabby Linder PA 08/15/2025 11:20 AM EDTRoutine [facility] [address] [place] [address] [place] [address] Kristy Goel NP Third trimester ([facility]); 30 weeks gestation of ([facility])5Clinisync Result Encounter [facility] External Department Unsolicited Kristy Goel NP from Last 3 Months Family History Medical HistoryRelationNameCommentsNo Known ProblemsBrother3 brothersCOVIDFather No Known ProblemsSister2 sistersRelationNameStatusCommentsBrotherAliveFather DeceasedMaternal GrandfatherAliveMaternal GrandmotherAliveMotherAlivePaternal GrandfatherDeceasedPaternal GrandmotherDeceasedSisterAlive Social History Tobacco UseTypesPacks/DayYears UsedDateSmoking Tobacco: Never Tobacco Cessation:Counseling Given: Not Answered Alcohol UseStandard Drinks/WeekCommentsYes0 (1 standard drink = 0.6 oz pure alcohol)Alcohol: monthly or less. Caffeine: noneEstimated Date of HlcjuxkuIcgskqgyJhb01/15/2025Based on UltrasoundSex and Gender InformationValue Date RecordedSex Assigned at BirthNot on fileLegal OabKwkrag36/15/2023 8:15 PM EDTGender IdentityNot on fileSexual OrientationNot on file Last Filed Vital Signs Vital SignReadingTime TakenCommentsBlood Ighamspf867/7610/24/2025 2:22 PM EST Pulse--Temperature--Respiratory Rate--Oxygen Saturation--Inhaled Oxygen Concentration--Blpekw305 kg (259 lb 1.9 oz)10/24/2025 2:22 PM AAISpzfkw347.8 cm (5' 10 )05/29/2024 9:13 AM EDTBody Mass Index37.18005/29/2024 9:13 AM EDT Plan of Treatment Not on file Procedures Procedure NamePriorityDate/TimeAssociated DiagnosisCommentsALL CBC WITH AUTO SGBYFclofwl00/22/2025 5:40 AM EST [facility] DRUG SCREEN RAPID (URINE)Hvaplsv1510/27/2025 6:56 PM EST [facility] CBC WITH PLATELET NO HKVYQDPMWCZKVbhbctc75/20/2025 6:55 PM EST POCT URINALYSIS AWFMQZRKGrygros99/17/2025 4:52 PM EST Third trimester ([facility]) 40 weeks gestation of ([facility]) US OB BPP W NON-MWXTAD2210/23/2025 8:52 AM EST POCT URINALYSIS GATPIAFFKulolfu75/10/2025 8:46 AM EST 39 weeks gestation of ([facility]) POCT URINALYSIS MTMRRHIHCuylvwl26/02/2025 10:13 AM EST 38 weeks gestation of ([facility]) Third trimester ([facility]) STREP GP B CULTURE+SWPHVebnhng99/20/2025 9:00 AM EST POCT URINALYSIS CRCYHXWCZktphqy67/05/2025 1:41 PM EST Third trimester ([facility]) POCT URINALYSIS EVZXQPQBHdgpzhy35/21/2025 2:07 PM EDT 32 weeks gestation of ([facility]) POCT URINALYSIS JEYPPFGWQmjulcy69/08/2025 11:31 AM EDT 30 weeks gestation of ([facility]) US OB LRWFSA5308/15/2025 7:51 AM EDT from Last 3 Months Results * (ABNORMAL) ALL CBC WITH AUTO DIFF (10/29/2025 5:40 AM EST)ComponentValueRef RangeTest MethodAnalysis TimePerformed AtPathologist SignatureTBH WBC10.44.0 - 11.0 10 3/uLTBHTBH RBC3.19(L)4.20 - 5.40 10 6/uLTBHTBH HGB8.2(L)12.0 - 16.0 g/dLTBHTBH HCT25.2(L)36.0 - 48.0 %TBHTBH MCV79.0(L)81.0 - 99.0 fLTBHTBH MCH 25.7(L)26.7 - 34.0 pgTBHTBH MCHC32.529.9 - 35.2 g/dLTBHTBH RDW13.611.0 - 15.0 %TBHTBH VHH066561 - 450 10 3/uLTBHTBH MPV9.99.5 - 13.5 [...] DOCLINISYNCFinal Result Performing OrganizationAddressCity/State/ZIP CodePhone Number CLINISYNC [facility] * [facility] DRUG SCREEN RAPID (URINE) (10/27/2025 6:56 PM [...] Servando DOCLINISYNCFinal Result Performing OrganizationAddressCity/State/ZIP CodePhone Number [facility] * (ABNORMAL) [facility] CBC WITH PLATELET NO DIFFERENTIAL (10/27/2025 6:55 PM EST) ComponentValueRef RangeTest MethodAnalysis TimePerformed AtPathologist SignatureTBH WBC9.24.0 - 11.0 10 3/uLTBHTBH RBC4.08(L)4.20 - 5.40 10 6/uLTBH TBH HGB10.4(L)12.0 - 16.0 g/dLTBHTBH HCT32.0(L)36.0 - 48.0 %TBHTBH MCV78.4(L) 81.0 - 99.0 fLTBHTBH MCH25.5(L)26.7 - 34.0 pgTBHTBH MCHC32.529.9 - 35.2 g/dL TBHTBH RDW13.711.0 - 15.0 %TBHTBH GAO481149 - 450 10 3/uLTBHTBH MPV9.99.5 - 13.5 fLTBHSpecimen (Source)Anatomical Location / LateralityCollection Method / VolumeCollection TimeReceived Time10/27/2025 6:55 PM EST10/27/2025 7:15 PM EST Narrative [facility] - 10/27/2025 7:19 PM EST Authorizing ProviderResult TypeResult StatusCorey Servando DOCLINISYNCFinal Result Performing OrganizationAddressCity/State/ZIP CodePhone Number [facility] * POCT urinalysis dipstick manually resulted (10/24/2025 4:52 PM EST) Only the most recent of6 resultswithin [...] Location / LateralityCollection Method / VolumeCollection TimeReceived OhytFtdrz96/17/2025 4:52 PM EST Narrative Authorizing ProviderResult TypeResult StatusCorey Servando DOPOINT OF CARE TEST ENTER/EDIT ORDERABLESFinal Result * US OB BPP W NON-STRESS (10/23/2025 8:52 AM EST)Anatomical Region LateralityModalityOtherSpecimen (Source)Anatomical Location / Laterality Collection Method / VolumeCollection TimeReceived Time10/23/2025 8:52 AM EST Narrative 10/23/2025 8:55 AM EST [facility] ?[address] ? [place] [address] ? Ultrasound Report ? Signed ? Patient: ALEJO OVERTON ?MR#: [id number] ?? : 2000 ?Acct:[id number] ?? Age/Sex: 25 / F ?ADM Date: 10/22/25 ?? Loc: US ? Attending Dr: Gabby Linder ? Ordering Physician: Gabby Linder ?? Date of Service: 10/22/25 ?? Procedure(s): US OB BPP w non-stress ?? Accession Number(s): [id number] ? cc: Gabby Linder; Physician,Non-Staff M.D. ? [facility] ? [address] ? [place] [address] ? Patient Name: ?? ALEJO OVERTON ? MRN: [id number] ? date: 2000 ?Sex: F ?? Assigned Patient Location: US ?? Current Patient Location: ? Accession/Order Number: [id number] ?? Exam Date: 10/22/2025 ??19:58 ?Report Date: [...] Dictation Location: RADIO-PC-30 ? Electronically authenticated by: [id number] ??Y ?? Date: 10/23/2025 ??08:52 ? Dictated By: ?Yesenia Rios M.D. ? Signed By: ?10/23/25 0855 ? DD/ 0852 ? TD/TT: ? Carbonation Equipment Operator: Procedure Note Radiology, Radiologist, - 10/23/[address] [address] Ultrasound Report Signed Patient: ALEJO OVERTON MMR#: [id number] : 2000Acct:[id number] Age/Sex: 25 / FADM Date: 10/22/25 Loc: US Attending Dr: Gabby Linder Ordering Physician: Gabby Linder Date of Service: 10/22/25 Procedure(s): US OB BPP w non-stress Accession Number(s): [id number] cc: Gabby Linder; Physician,Non-Staff M.DLuther The [address] [address] Patient Name: ALEJO OVERTON MRN: [id number] date: 2000 Sex: F Assigned Patient Location: US Current Patient Location: Accession/Order Number: [id number] Exam Date: 10/22/2025 19:58 Report Date: 10/23/2025 [...] in upper normal range. Total score: 8/8 US/ OB BPP w non-stress IMPRESSION: NORMAL BIOPHYSICAL PROFILE Impression dictated by: Yesenia Rios M.D. 10/23/2025 8:52 AM Dictation Location: [place] [address] Electronically authenticated by: [id number] Y Date: 508:52 Dictated By: Yesenia Rios M.D. Signed By:10/23/25 0855 DD/ TD/TT: Carbonation Equipment Operator: Authorizing ProviderResult TypeResult StatusGabby Niyah PACLINISYNC IMAGINGFinal Result * STREP GP B [...] is noted.TBHSTREP GP B CULTURE+RFLX Performed at: - [facility]REP GP B CULTURE+[id number] [place], [place] [id number] GP B CULTURE+RFLXLab Director: Jason Barrera PhD, Phone: [phone] (Source)Anatomical Location / Laterality Collection Method / VolumeCollection TimeReceived Time09/27/2025 9:00 AM EST 09/27/2025 3:51 PM EST Narrative [facility] - 10/01/2025 10:08 AM EST Authorizing ProviderResult TypeResult StatusCorey Servando DOLAB BLOOD ORDERABLES Final ResultPerforming OrganizationAddressCity/State/ZIP CodePhone Number [facility] * US OB GROWTH (08/15/2025 7:51 AM EDT)Anatomical RegionLateralityModalityOther Specimen (Source)Anatomical Location / LateralityCollection Method / Volume Collection TimeReceived Time08/15/2025 7:51 AM EDT Narrative 08/15/2025 7:54 AM EDT [facility] ?[address] ? [place] [address] ? Ultrasound Report ? Signed ? Patient: BROOKLYNN,ALEJO M ?MR#: [id number] ?? : 2000 ?Acct:[id number] ?? Age/Sex: 24 / F ?ADM Date: 10/07/25 ?? Loc: US ? Attending Dr: Kristy Goel ? Ordering Physician: Kristy Goel ?? Date of Service: 08/14/25 ?? Procedure(s): US OB growth ?? Accession Number(s): [id number] ? cc: Kristy Goel; Physician,Non-Staff M.D. ? [facility] ? [address] ? [place] [address] ? Patient Name: ?? ALEJO OVERTON ? MRN: [facility]:[id number] ? date: 2000 ?Sex: F ?? Assigned Patient Location: ?? Current Patient Location: ? Accession/Order Number: [id number] ?? Exam Date: 08/14/2025 ??19:06 ?Report Date: [...] M.D. ??08/15/2025 7:51 AM ? Dictation Location: [place] [address] ? Electronically authenticated by: [id number] ??Y ?? Date: 08/15/2025 ??07:51 ? Dictated By: ?Yesenia Rios M.D. ? Signed By: ?08/15/25 075 ? DD/ 0751 ? TD/TT: ? Carbonation Equipment Operator: Procedure Note Radiology, Radiologist, MD - 08/15/2025 [place] [address] Ultrasound Report Signed Patient: ALEJO OVERTON MMR#: [id number] : 2000Acct:[id number] Age/Sex: 24 / FADM Date: 08/14/25 Loc: US Attending Dr: Kristy Goel Ordering Physician: Kristy Goel Date of Service: 08/14/25 Procedure(s): US OB growth Accession Number(s): [id number] cc: Kristy Goel; Physician,Non-Staff M.D. The [place] [id number] Patient Name: ALEJO OVERTON MRN: [id number] date: 2000 Sex: F Assigned Patient Location: US Current Patient Location: Accession/Order Number: [id number] Exam Date: 08/14/2025 19:06 Report Date: 08/15/2025 [...] 3 lbs. 12 oz. +/- ounces (70%). US/ OB growth IMPRESSION: SINGLE LIVE INTRAUTERINE GESTATION WITH TODAY'S ULTRASOUND AGE OF 31 WEEKS0 DAYS. Impression dictated by: Yesenia Rios M.D. 08/15/2025 7:51 AM Dictation Location: [place] [address] Electronically authenticated by: [id number] Y Date: 7:51 Dictated By: Yesenia Rios M.D. Signed By:08/15/25 0754 DD/ 0751 TD/TT: Carbonation Equipment Operator: Authorizing ProviderResult TypeResult StatusKristy Goel NPCLINISYNC IMAGING Final Result from Last 3 Months Insurance Care Teams Team MemberRelationshipSpecialtyStart DateEnd Date Mc Ray MD [facility] [place] [address] [facility]05/27/23
--- OUTSIDE RECORDS SUMMARY | 2025-11-05 08:51 | XMS_ITS | CCD ---
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 Name Role Phone Cleveland RAY Primary Care Physician Danika RUTLEDGE Unavailable Cleveland Ray MD Primary Care Provider [phone] Cleveland RAY Attending Unavailable AURELIO, Cleveland Santo Attending Unavailable Cleveland RAY Attending Unavailable AURELIO, Cleveland Santo Attending Unavailable AURELIO, Cleveland Santo Attending Unavailable Cleveland Ray MD Primary Care Provider [phone] JESSIE AL Attending Unavailable SERVANDO, JESSIE Attending Unavailable NIYAH, GABBY Attending Unavailable SERVANDO, JESSIE Attending Unavailable SERVANDO, JESSIE Attending Unavailable NIYAH, GABBY Attending Unavailable MANASAKRISTY KENT Attending Unavailable NIYAH, GABBY Attending Unavailable NIYAH, GABBY Attending Unavailable Allergies Allergy ClassificationReported Allergen(s)Allergy TypeDate of OnsetReaction(s) Facility (1 source)Amoxicillin; Translations: [amoxicillin][facility] (1 source)Clindamycin; Translations: [clindamycin][facility] Rep[facility] (1 source)Penicillins; Translations: [penicillins]Propensity to adverse reactions (disorder)[facility] Repository (1 source)No Known Medication Allergies; Translations: [No Known Medication Allergies]Propensity to adverse reactions (disorder)[facility] Repository Medications Current Medications MedicationDrug Class(es)DatesSig (Normalized)Sig (Original)etonogestrel 68 mg drug implant (16 sources)ProgestinStart: 11-71-6290tdvinc 1 mg by subcutaneous injection once Nexplanon 68 mg subcutaneous implant mg EA, SubCutaneous, Once, Refills(s) 0 Start Date: 05/04/20 Status: Ordered End: 55-94-7545niqhunosjvez-eluting (Nexplanon) 68 mg contraceptive implant 1 each by Implant route 1 (one) time 11/20/2024 Discontinued (Other) nitrofurantoin, macrocrystals 25 mg / nitrofurantoin, monohydrate 75 mg oral capsule (3 sources)Nitrofuran AntibacterialStart: 04-05-2025 End: 09-36-1069yuph 1 capsule by mouth in the morningnitrofurantoin, macrocrystal-monohydrate, (Macrobid) 100 MG capsule Indications: Urinary tract infection with hematuria, site unspecified Take 1 capsule (100 mg) by mouth in the morning and 1 capsule(100 mg) before bedtime. Do all this for 7 days. 14 capsule 04/05/2025 04/12/2025 Activephentermine hydrochloride 37.5 mg oral tablet (14 sources)Sympathomimetic Amine AnorecticStart: 57-50-7730ibol 1 tablet by mouth once dailyAdipex-P 37.5 mg Tab 37.5 mg = 1 tab(s), Oral, Daily, # 30 tab(s), Refills(s) 0, Pharmacy: [facility][id number], 173, cm, 03/30/24 8:25:00 EDT, Height/Length Dosing, 91.2, kg, 03/30/24 8:25:00 EDT, WeightDosing Start Date: 03/30/24 Status: OrderedStart: 97-33-5420ziwy 1 tablet by mouth once dailyAdipex- P 37.5 mg Tab 37.5 mg = 1 tab(s), Oral, Daily, # 30 tab(s), Refills(s) 0, Pharmacy: [facility]#[id number], 173, cm, 03/06/24 8:02:00 EDT, Height/Length Dosing, 91.7, kg, 03/06/24 8:02:00 EDT, WeightDosing Start Date: 03/06/24 Status: Ordered Start: 68-66-5188ltea 1 tablet by mouth once dailyAdipex-P 37.5 mg Tab 37.5 mg = 1 tab(s), Oral, Daily, # 30 tab(s), Refills(s) 0, Pharmacy: [facility]#[id number], 173, cm, 02/03/24 8:01:00 EDT, Height/Length Dosing, 93, kg, 02/03/24 8:01:00 EDT, Weight Dosing Start Date: 02/03/24 Status: OrderedStart: 01-22-2023 End: 37-77-5602horh 1 tablet by mouth once dailyAdipex-P 37.5 mg Tab 37.5 mg = 1 tab(s), Oral, Daily, # 30 tab(s), Refills(s) 0, [facility]: [id number], 173, cm, 01/06/24 8:32:00 EST, Height/Length Dosing, 93, kg, 01/06/24 8:32:00 EST, Weight Dosing Start Date: 01/06/24 Status: Ordered Problems Active Problems Problem ClassificationProblemDateDocumented DateEpisodic/ChronicContraceptive and procreative management (1 source)Subcutaneous contraceptive implant present; Translations: [Encounter for surveillance of implantable subdermal contraceptive]57-08-8954Vabqdrbl Immunizations and screening for infectious disease (2 sources)Exposure to sexually transmissible disorder; Translations: [Contact with and (suspected) exposure to infections with a predominantly sexual mode of transmission]06-54-4171PhlyyvlnAkhuadjvy disorders (1 source)Missed period; Translations: [Irregular menstruation, unspecified] 78-17-2478SnbtcidXkqmv and unspecified benign neoplasm (3 sources)Melanocytic nevus of face; Translations: [Melanocytic nevi of unspecified part of face]Onset: 20-07-6483PwtmhrviYgozr and unspecified benign neoplasm (4 sources)Benign neoplasm of skin of jkrd98-61-5225GeffezyaYclga circulatory disease (6 sources)Non-neoplastic ershi14-23-5109JyxszyszHemsc complications of (2 sources) size does not accord with dates; Translations: [Uterine size- date discrepancy, unspecified trimester]96-42-8382JwjhnrjqMfabn congenital anomalies (6 sources)Non-neoplastic nevus; Translations: [Congenital non-neoplastic nevus] Onset: 45-79-3050QfmsaugXvqku female genital disorders (2 sources)Vaginal discharge; Translations: [Other specified noninflammatory disorders of vagina]54-39-1666BhkvlztmSysdf nutritional; endocrine; and metabolic disorders (20 sources)Obesity; Translations: [Other obesity]Onset: 63-43-5101BbhkgowMzlpt nutritional; endocrine; and metabolic disorders (13 sources)Obese class I; Translations: [Body mass index (BMI) 33.0-33.9, adult]Onset: 03-26-7509DwcveorRgfqg nutritional; endocrine; and metabolic disorders (1 source)Overweight in adulthood with body mass index of 25 or more but less than 30; Translations: [Body mass index (BMI) 29.0-29.9, adult]Onset: 05-03-2023 EpisodicOther nutritional; endocrine; and metabolic disorders (1 source)Overweight; Translations: [Overweight]Onset: 65-77-3404AyxdaxxpYtbjd and delivery including normal (18 sources); Translations: [Encounter for supervision of normal , unspecified, unspecified trimester]01-83-1780MbmbcowsPsocy screening for suspected conditions (not mental disorders or infectious disease) (7 sources)Patient encounter status; Translations: [Unsatisfactory cytologic smear of cervix]85-80-4073PrlvuqkdJebpo upper respiratory infections (2 sources)Acute upper respiratory infection; Translations: [Acute upper respiratory infection, unspecified]Onset: 45-06-7186IzzkchokAtlpnvgv codes; unclassified (2 sources)Gestation period, 16 weeks; Translations: [16 weeks gestation of ]70-28-3174CwpzyzywBsbwlpyh codes; unclassified (2 sources)Gestation period, 20 weeks; Translations: [20 weeks gestation of ]65-07-5374QmwkvubbCufrkdtj codes; unclassified (2 sources)Gestation period, 24 weeks; Translations: [24 weeks gestation of ]30-15-7600ZsjsqjytJsuwdcza codes; unclassified (2 sources)Gestation period, 28 weeks; Translations: [28 weeks gestation of ]93-40-7748DucgmmyxAdacjnnd codes; unclassified (2 sources)Gestation period, 30 weeks; Translations: [30 weeks gestation of ]24-20-7196QiraanjvFvxxgcbh codes; unclassified (2 sources)Gestation period, 32 weeks; Translations: [32 weeks gestation of ]20-34-3212QshznqduJytvyjok codes; unclassified (2 sources)Gestation period, 34 weeks; Translations: [34 weeks gestation of ]83-84-9219Vibikmyq Past or Other Problems Problem ClassificationProblemDateDocumented DateEpisodic/ChronicUnclassified (12 sources)Patient encounter bwbids25-39-5382 Results Test NameValueInterpretationReference RangeFacilityUrinalysis macro (dipstick) panel (U)on 93-75-1685Whtfhaima, UANegativeNegative - 4(70) +++ mg/dLNOMS HealthcareBlood, UANegativeNegative [...] mg/dLNOMS HealthcareNOMS HealthcareUrinalysis macro (dipstick) panel (U)on 25-49-1004Rohnedapj, UA NegativeNegative - 4(70) +++ mg/dLNOMS HealthcareBlood, [...] - 12 mg/dLNOMS HealthcareNOMS HealthcareUS OB GROWTHon 38-11-7958[place]sn[place] [address] Ultrasound Report Signed Patient: ALEJO OVERTON MR#: [id number] : 2000 Acct:[id number] Age/Sex: 24 / F ADM Date: 08/14/25 Loc: US Attending Dr: Kristy Goel Ordering Physician: Kristy Goel Date of Service: 08/14/25 Procedure(s): US OB growth Accession Number(s): [id number] cc: Kristy Goel; Physician,Non-Staff M.D. [facility] [place] [address] Patient Name: ALEJO OVERTON MRN: [id number] date: 2000 Sex: F Assigned Patient Location: US Current Patient Location: Accession/Order Number: [id number] Exam Date: 08/14/2025 19:06 Report Date: 08/15/2025 [...] Rios M.D. 08/15/2025 7:51 AM Dictation Location: [place] [address] Electronically authenticated by: [id number] Y Date: 08/15/2025 07:51 Dictated By: Yesenia Rios M.D. Signed By: 08/15/25 0754 DD/ 075 TD/TT: Client Service Associate:MONAHRadiology, Radiologist, - 08/15/2025 [place] [address] Ultrasound Report Signed Patient: ALEJO OVERTON MR#: [id number] : 2000 Acct:[id number] Age/Sex: 24 / F ADM Date: 08/14/25 Loc: US Attending Dr: Kristy Goel Ordering Physician: Kristy Goel Date of Service: 08/14/25 Procedure(s): US OB growth Accession Number(s): [id number] cc: Kristy Goel; Physician,Non-Staff Barbara [facility] [place] [address] Patient Name: ALEJO OVERTON MRN: [id number] date: 2000 Sex: F Assigned Patient Location: US Current Patient Location: Accession/Order Number: [id number] Exam Date: 08/14/2025 19:06 Report Date: 08/15/2025 [...] Rios M.D. 08/15/2025 7:51 AM Dictation Location: [place] [address] Electronically authenticated by: [id number] Y Date: 08/15/2025 07:51 Dictated By: Yesenia Rios M.D. Signed By: 08/15/25 0754 DD/ 0751 TD/TT: Client Service Associate: ALEX HealthcareRadiology Study observation (narrative)[facility] HealthcareUS OB GROWTHOrdered By: Radiologist Radiology on 62-03-6656PMNTJefferson Memorial Hospital Work Phone: Urinalysis macro (dipstick) [...] - 1.03N[facility] Healthcare Urobilinogen, UA2.00.2 - 12 mg/dLNOBarnes-Jewish HospitalNOMI HealthcareUrinalysis macro (dipstick) panel (U)on 98-95-6182Zkzrqfiuk, UANegativeNegative - 4(70) +++ mg/dL [facility] HealthcareBlood, UANegativeNegative - 50 Ming/mcLNOMS HealthcareClarity, UA ClearNOMS HealthcareColor, UAYellowNOMS HealthcareGlucose, UANegativeNegative - 2000(110) ++++ mg/dLNOMI HealthcareInterpretation and review of laboratory resultsNormalNOMS HealthcareKetones, UANegativeNegative - 160(16) ++++ mg/dLNOMS HealthcareLeukocytes, UANegativeNegative - 500+++ Manpreet/mcLNOMS HealthcareNitrite, UANegativeNegative - PositiveNOMS HealthcarepH, UA65 - 9NOMS HealthcareProtein, UANegativeNegative - 2000(20) ++++ mg/dLNOMI HealthcareSpec Grav, UA1.0151 - 1.03NOMI HealthcareUrobilinogen, UA0.20.2 - 12 mg/dLHawthorn Children's Psych[facility] HealthcareGLUCOSE 1 HOURon 73-67-8956Ydqozrj [Mass/Vol]122 mg/dLNINF - 130 mg/dL [facility] HealthcareCLINISYNCNOMS HealthcareIGP,APTIMA HPV,AGE GDLNon 95-31-2604EWT GDLN ACOG TESTINGNote.[facility] HealthcareComment on above:TESTS RESULT FLAG UNITS REF RANGE LAB Clinician Provided Cytology Information Source.............Vagina Other.............. No. of containers..01 ThinPrep Vial Age Algo ACOG Sherice... -06 11 FLAG LEGEND: L-Low Normal,H-High Normal,LL-Alert Low,HH-Alert High <-Panic Low,>-Panic High,A-Abnormal,AA-Critical Abnormal Performed at: 01 =G [facility] [address] [place] [address] Gabi Graves MD, IGP, RFX APTIMA HPV ASCUNote.[facility] HealthcareComment on above:TESTS RESULT FLAG UNITS REF RANGE LAB DIAGNOSIS: 02 NEGATIVE FOR INTRAEPITHELIAL LESION OR MALIGNANCY. Specimen adequacy: 02 Satisfactory for evaluation. No endocervical component is identified. An endocervical component is not commonly seen in the patient. Performed by: Pablo Piper, Telecommunications Officer ([facility]) . 02 Note: Note 02 [...] <-Panic Low,>-Panic High,A-Abnormal,AA-Critical Abnormal Performed at: [address] [address] Gabi Graves MD, Performed at: =[facility] [id number] [employer] Computer [employer] Teacher: Gabi Graves MD, Phone: [phone] Performed at: [address] [id number] [employer] Computer [employer] Teacher: Gabi Graves MD, Phone: [phone] SPATULA-ALONE VAGINA CLINISYNCNOMS HealthcareRECURRENT VAGINITIS (HTRX)on 49-92-7426AWGPXJJOO VAGINAE 19.164AbnormalNOMS HealthcareATOPOBIUM VAGINAEDetectedAbnormalNOMS Healthcare BVAB 2,3 (BACTERIAL VAGINOSIS ASSOCIATED BACTERIA 2, 3); MOBILUNCUS YXM3PPNO HealthcareBVAB 2,3 (BACTERIAL VAGINOSIS ASSOCIATED BACTERIA 2, 3); MOBILUNCUS SPPNot detectedNOMS HealthcareCANDIDA ALBICANS, PARAPSILOSIS, XZIGVXWSIQ6ALJD HealthcareCANDIDA ALBICANS, PARAPSILOSIS, TROPICALISNot detectedNOMS Healthcare IGOR WCGWIYBE5ZPLS HealthcareCANDIDA GLABRATANot detectedNOMS Healthcare IGOR DSVHXC1FGYD HealthcareCANDIDA KRUSEINot detectedNOMS HealthcareCHLAMYDIA YBXNSHVXTLC4HXKJ HealthcareCHLAMYDIA TRACHOMATISNot detectedNOMS Healthcare ERMB, C; MEFA23.066AbnormalNOMS HealthcareERMB, C; MEFADetectedAbnormalNOMS HealthcareGARDNERELLA DBPXSBLUB71.73AbnormalNOMS HealthcareGARDNERELLA VAGINALIS DetectedAbnormalNOMS HealthcareInterpretation and review of laboratory results AbnormalNOMS HealthcareMEGASPHAERA (TYPES 1, 2)14.97AbnormalNOMS Healthcare MEGASPHAERA (TYPES 1, 2)DetectedAbnormalNOMS HealthcareMYCOPLASMA GENITALIUM0 NOMS HealthcareMYCOPLASMA GENITALIUMNot detectedNOMS HealthcareNEISSERIA CJUCULGTCAQ9JHEL HealthcareNEISSERIA GONORRHOEAENot detectedNOMS HealthcareTET B, TET M24.724AbnormalNOMS HealthcareTET B, TET MDetectedAbnormalNOMS Healthcare TRICHOMONAS YCQUMZOGS0BRJP HealthcareTRICHOMONAS VAGINALISNot detectedNOMS HealthcareNOMS HealthcareUrinalysis macro (dipstick) panel (U)on 07-04-2025 Bilirubin, UANegativeNegative - 4(70) +++ mg/dLNOMS HealthcareBlood, UANegative Negative - 50 Mign/mcLNOMS HealthcareClarity, UAClearNOMS HealthcareColor, UA YellowNOMS HealthcareGlucose, UANegativeNegative - 2000(110) ++++ mg/dLNOMS HealthcareInterpretation and review of laboratory resultsAbnormalNOMS Healthcare Ketones, UANegativeNegative - 160(16) ++++ mg/dLNOMS HealthcareLeukocytes, UA PositiveNegative - 500+++ Manpreet/mcLNOMS HealthcareNitrite, UANegativeNegative - PositiveNOMS HealthcarepH, UA65 - 9NOMS HealthcareProtein, UANegativeNegative - 2000(20) ++++ mg/dLNOMS HealthcareSpec Grav, UA1.0151 - 1.03N[facility] Urobilinogen, UA1.00.2 - 12 mg/dLNOMS HealthcareNOMS HealthcareUS OB INCOMPLETE ANATOMYon 43-41-5964[address] [address] Ultrasound Report Signed Patient: ALEJO OVERTON MR#: [id number] : 2000 Acct:[id number] Age/Sex: 24 / F ADM Date: 06/12/25 Loc: US Attending Dr: Jessie Al D.O. Ordering Physician: Jessie Al D.O. Date of Service: 06/12/25 Procedure(s): US OB incomplete anatomy Accession Number(s): [id number] cc: Jessie Al D.O.; Physician,Non-Staff M.Nicola [facility] [place] [address] Patient Name: ALEJO OVERTON MRN: [id number] date: 2000 Sex: F Assigned Patient Location: US Current Patient Location: Accession/Order Number: [id number] Exam Date: 06/13/2025 09:05 Report Date: 06/13/2025 [...] Jr., D.O. 06/13/2025 9:20 AM Dictation Location: [place] [address] Electronically authenticated by: [id number] Y Date: 06/13/2025 09:20 Dictated By: Juan Francisco Abel M.D. Signed By: 06/13/25922 DD/ 9 TD/TT: Client Service Associate:MONAHRadiology, Radiologist, - 06/13/2025 [place] [address] Ultrasound Report Signed Patient: ALEJO OVERTON MR#: [id number] : 2000 Acct:[id number] Age/Sex: 24 / F ADM Date: 06/12/25 Loc: US Attending Dr: Jessie Al D.O. Ordering Physician: Jessie Al D.O. Date of Service: 06/12/25 Procedure(s): US OB incomplete anatomy Accession Number(s): [id number] cc: Jessie Al D.O.; Physician,Non-Staff Barbara [facility] [place] [id number] Patient Name: ALEJO OVERTON MRN: [id number] date: 2000 Sex: F Assigned Patient Location: US Current Patient Location: Accession/Order Number: [id number] Exam Date: 06/13/2025 09:05 Report Date: 06/13/2025 [...] Jr., D.O. 06/13/2025 9:20 AM Dictation Location: [place] [address] Electronically authenticated by: [id number] Y Date: 06/13/2025 09:20 Dictated By: Juan Francisco Abel M.D. Signed By: 06/13/25922 DD/ 9 TD/TT: Client Service Associate: ALEX SaraviaRadiology Study observation (narrative)NOMS HealthcareUS OB INCOMPLETE ANATOMYOrdered By: Radiologist Radiology on 57-73-8421[facility] Work Phone: no Panel InformationOrdered By: Radiologist Radiology on 93-57-8759[facility] Work Phone: no Panel Informationon 29-74-3774Zmtusbgip Study observation (narrative)NOMS HealthcareUS OB ANATOMYon 70-42-8422Gx[address] [address] Ultrasound Report Signed Patient: ALEJO OVERTON MR#: [id number] : 2000 Acct:[id number] Age/Sex: 24 / F ADM Date: 06/04/25 Loc: US Attending Dr: Jessie Al D.O. Ordering Physician: Jessie Al D.O. Date of Service: 06/04/25 Procedure(s): US OB anatomy Accession Number(s): [id number] cc: Jessie Al D.O.; [place] RAY [place] [id number] Patient Name: ALEJO OVERTON MRN: [id number] date: 2000 Sex: F Assigned Patient Location: US Current Patient Location: US Accession/Order Number: [id number] Exam Date: 06/04/2025 21:13 Report Date: 06/04/2025 [...] Jr., D.O. 06/04/2025 9:22 PM Dictation Location: [place] [address] Electronically authenticated by: [id number] Y Date: 06/04/2025 21:22 Dictated By: Juan Francisco Abel M.D. Signed By: 06/04/252124 DD/ 21 TD/TT: Client Service Associate:KAYLEENadiology, Radiologist, - 06/04/2025 [place] [address] Ultrasound Report Signed Patient: ALEJO OVERTON MR#: [id number] : 2000 Acct:[id number] Age/Sex: 24 / F ADM Date: 06/04/25 Loc: US Attending Dr: Jessie Al D.O. Ordering Physician: Jessie Al D.O. Date of Service: 06/04/25 Procedure(s): US OB anatomy Accession Number(s): [id number] cc: Jessie Al D.O.; [place] RAY [address] [address] Patient Name: ALEJO OVERTON MRN: [id number] date: 2000 Sex: F Assigned Patient Location: US Current Patient Location: US Accession/Order Number: [id number] Exam Date: 06/04/2025 21:13 Report Date: 06/04/2025 [...] Jr., D.O. 06/04/2025 9:22 PM Dictation Location: [place] [address] Electronically authenticated by: [id number] Y Date: 06/04/2025 21:22 Dictated By: Juan Francisco Abel M.D. Signed By: 06/04/252124 DD/ 21 TD/TT: Client Service Associate: ALEX Redd OB CERVICAL LENGTHon 44-72-7466[place] [address] Ultrasound Report Signed Patient: ALEJO OVERTON MR#: [id number] : 2000 Acct:[id number] Age/Sex: 24 / F ADM Date: 06/04/25 Loc: US Attending Dr: Jessie Al D.O. Ordering Physician: Jessie Al D.O. Date of Service: 06/04/25 Procedure(s): US OB cervical length Accession Number(s): [id number] cc: Jessie Al D.O.; [place] RAY [address] [address] Patient Name: ALEJO OVERTON MRN: [id number] date: 2000 Sex: F Assigned Patient Location: Current Patient Location: US Accession/Order Number: [id number] Exam Date: 06/04/2025 21:13 Report Date: 06/04/2025 [...] Jr., D.O. 06/04/2025 9:22 PM Dictation Location: [place] [address] Electronically authenticated by: [id number] Y Date: 06/04/2025 21:22 Dictated By: Juan Francisco Abel M.D. Signed By: 06/04/252124 DD/ 21 TD/TT: Client Service Associate:MONAHRadiology, Radiologist, - 06/04/2025 [place] [address] Ultrasound Report Signed Patient: ALEJO OVERTON MR#: [id number] : 2000 Acct:[id number] Age/Sex: 24 / F ADM Date: 06/04/25 Loc: US Attending Dr: Jessie Al D.O. Ordering Physician: Jessie Al D.O. Date of Service: 06/04/25 Procedure(s): US OB cervical length Accession Number(s): [id number] cc: Jessie Al D.O.; [place] RAY [place] [phone] Patient Name: ALEJO OVERTON MRN: [id number] date: 2000 Sex: F Assigned Patient Location: US Current Patient Location: US Accession/Order Number: [id number] Exam Date: 06/04/2025 21:13 Report Date: 06/04/2025 [...] Jr., D.O. 06/04/2025 9:22 PM Dictation Location: [place] [address] Electronically authenticated by: [id number] Y Date: 06/04/2025 21:22 Dictated By: Juan Francisco Abel M.D. Signed By: 06/04/252124 DD/ 21 TD/TT: Client Service Associate: ALEX SaraviaAFP, SERUM, OPEN SPINA BIFIDAon 36-40-7541LHN MOM0.73.[facility] HealthcareAFP VALUE24.9 ng/mL.[facility] HealthcareCOMMENT:Comment.[facility] Comment on above:Blanca Martinez, Ph.D., [facility] Director References: Available Upon Request. Multiples Of Median Cutoffs For AFP Elevations Carty 2.5 Black 2.8 IDD 2.0 Twins 4.5 Abbreviation Definitions IDD - Insulin Dep Diabetes OSBR - Open Spina Bifida Risk For further inquiries contact [employer] [facility] at [phone]. This test was developed and its performance characteristics determined by [employer] It has not been cleared or approved by the Food and Drug Administration. Performed at: [facility] [address] [place], [place] [id number] [employer] Computer Science Teacher: Renae Bautista [facility], Phone: [phone] GEST. AGE ON COLLECTION DATE18.0. weeksNOMS HealthcareGESTAT. AGE BASED ON Ultrasound.[facility] HospitalComment on above:16.1 on 05/08/2025 Recalculations are not recommended when gestational dating by LMP and ultrasound are within 10 days. INSULIN DEP DIABETESNo.[facility] HospitalINTERPRETATIONComment.[facility] Comment on above:Interpretation: Screen Negative [...] Customer Services to discuss available options. The [employer] recommends amniocentesis be offered to women age 35 and older. MATERNAL AGE AT EDD26.1. yrNOMI HealthcareMULTIPLE GESTATIONNo.[facility] OSBR RISK 1 [id number].[facility] HospitalRACECaucasian.[facility] HospitalRESULTSReport. [facility] HospitalTEST RESULTS:Negative.[facility] HospitalTdpwgkmxxmLIAGHS431. lbsNOMS HealthcarePREGNANCY N N ULTRASOUND [id number] 1 16 N 1 Y 223 N N N N N White/ CLINISYNCJefferson Memorial HospitalUrinalysis macro (dipstick) panel (U)on 05-08-2025 Bilirubin, UANegativeNegative - 4(70) +++ mg/dLNOMI HealthcareBlood, UANegative Negative - 50 Ming/mcLNOMI HealthcareClarity, UAClearNOMI HealthcareColor, UA YellowNOMI HealthcareGlucose, UANegativeNegative - 2000(110) ++++ mg/dL[facility] HealthcareInterpretation and review of laboratory resultsAbnormalJefferson Memorial Hospital Ketones, UAPositiveNegative - 160(16) ++++ mg/dLJefferson Memorial HospitalLeukocytes, UA TraceNegative - 500+++ Manpreet/mcLNOMI HealthcareNitrite, UANegativeNegative - PositiveNOMI HealthcarepH, UA6.55 - 9NOMI HealthcareProtein, UANegativeNegative - 2000(20) ++++ mg/dLNOMI HealthcareSpec Grav, UA1.0251 - 1.03NOBarnes-Jewish Hospital Urobilinogen, UA1.00.2 - 12 mg/dLNOMS HealthcareNOMS HealthcareUrinalysis macro (dipstick) panel (U)on 75-50-8872Qwvhegxhf, UANegativeNegative - 4(70) +++ mg/dL [facility] HealthcareBlood, [...] UA0.20.2 - 12 mg/dLNOMS HealthcareNOMS HealthcareBOX TESTon 82-61-4286NDF TEST SENT OUTUNITYNOMS LrrqcynoqmNKV4ESVBF NOMS MqduhaicxoSOB67/12/25NOMS HealthcareUNITY BOX CLINISYNCNOMS HealthcareUS OB TRANSVAGINALon 86-73-0579HY OB TRANSVAGINALEXAM: US OB TRANSVAGINAL HISTORY: Dating. [...] II, MD, PHD at 11-Mar-2025 08:55:38 PM [facility] TeleradiologyNormalNot AvailableComment on above:Order Comment: US OB TRANSVAGINAL No LMP recorded. Patient has had an implant.Insertion/Removal of Contraceptive Capsuleon 87-88-0714Lplxlsteve Tomas LPN 11/21/2024 8:37 AM Insertion/Removal of [...] closed with steri-strips and pressure bandage applied: [facility] PAP IMAGE GUIDEDon 99-96-1111RHA IG (IMAGE GUIDED) Note.NOMS HealthcareComment on above:TESTS RESULT FLAG UNITS REF RANGE LAB Clinician Provided Cytology Information Source.............Cervix;Endocervix No. of containers..01 ThinPrep Vial DIAGNOSIS: 01 NEGATIVE FOR INTRAEPITHELIAL LESION OR MALIGNANCY. Specimen adequacy: 01 Satisfactory for evaluation. Endocervical and/or squamous metaplastic cells (endocervical component) are present. Performed by: Trinity Schmidt, Metallurgical Analyst ([facility]) . 01 Note: Note 01 [...] High <-Panic Low,>-Panic High,A-Abnormal,AA-Critical Abnormal Performed at: [facility] [address] [id number] Gabi Graves MD, Performed at: - [facility] [address] [id number] [employer] Computer [employer] Teacher: Gabi Graves MD, Phone: [phone] [facility] ENDOCERVIX CLINISYNCNOMI HealthcareAmbulatory Visit Summaryon 39-56-0177Azfjbgrvex Visit SummaryAmbulatory Visit Summary ALEJO OVERTON :2000 [...] PED When: In 6 months Where: [address] [place] [address]- Medications What How Much When [...] health care provider or diet and nutrition representative (dietitian). This may include: ? Eating fewer [...] intensity of exercise may (more content not included)...[facility] Medicine Office/Clinic Noteon 88-11-4222Xnjpkn Medicine Office/Clinic NoteFamelrosewakefield hospital Medicine Office/Clinic Note Chief Complaint Finished Adipex [...] Santo, DAE, PED In 6 months [address] [facility] [address], [address] [place] [id number]- Additional Instructions: Patient Education Exercising to Lose [...] acel/tetanus ped 0 (more content not included)...Normal [facility] RehabilitationComment on above:Result Comment: Electronically Signed By: Cleveland RAY DO, FAAFP\.br\Date and Time Signed: 05/04/24 08:49 EDT Ambulatory Visit Summaryon 15-02-1186Oobxvdjpvh Visit Summary ALEJO OVERTON :2000 Visit Date:03/30/2024 [...] EDT With: Cleveland RAY DO, FAAFP [facility] Office/Clinic Noteon 55-15-3089Cntgwl Medicine Office/Clinic NoteChief Complaint Adipex #6. Down [...] Daily, # 30 tab(s), Refills(s) 0, Pharmacy: [facility] #[id number], cm, 03/30/24 8:25:00 EDT, Height/Length Dosing, 91.2, [...] 1 month [address], [place] [address]- Additional Instructions: Patient Education BMI for Adults Problem List/Past Medical History Ongoing Compound nevus of face Historical Other obesity School physical exam Procedure/Surgical History None. Medications Adipex-P 37.5 mg Tab, 37.5 mg= 1 tab(s), Oral, Daily Nexplanon 68 mg subcutaneous implant, SubCutaneou (more content not included)... [facility] CenterComment on above:Result Comment: Electronically Signed By: Cleveland RAY DO, FAAFP\.br\Date and Time Signed: 03/30/24 08:47 EDT Patient Educationon 74-37-3547Okzzjni EducationNutrition BMI for Adults What is BMI? [...] numbers. This can be done either in [place] ([place] or metric measurements. Note that charts and online BMI calculators are available to help you find your BMI quickly and easily without having to do these calculations yourself. To calculate your BMI in [place] ([place] measurements: 1. Measure your weight in [...] for Disease Control and Prevention: www.cdc.gov ? [place] Heart Association: www.heart.org ? National Heart, Lung, and Blood [place]: www.nhlbi.nih.gov Summary ? Body mass index (BMI) is a number that is calculated from a person's weight and height. ? BMI may help estimate how much of a person's weight is composed of fat. BMI can help identify those who may be at higher risk for certain medical problems. ? BMI can be measured using O[place]i measurements or metric measurements. ? BMI charts are used to identify whether you are underweight, normal weight, overweight, or obese. This information is not intended to replace advice given to you by your health care provider. Make sure you discuss any questions you have with your health care provider. Document Revised: 07/17/2020 Document Reviewed: 05/24/2020 [employer] Patient Education ? 2022 [employer].[facility] Ambulatory Visit Summaryon 00-75-0294Dochtnuzgn Visit Summary ALEJO OVERTON :2000 Visit Date:03/06/2024 [...] EDT With: Cleveland RAY DO, FAAFP Where: [facility] Primary [address] [place] [address]- \.br\ You Need to Schedule the Following Appointments\.br\ Follow Up with Cleveland RAY DO, FAAFP, FAM, PED When: In 1 month\.br\ Where:\.br\ [address], [address]br\ [place] [address].br\ \.br\ Medications\.br\ What How Much When Why Instructions\.br\ Unchanged etonogestrel (Nexplanon 68 mg subcutaneous implant) Subcutaneous Once\.br\ Unchanged phentermine (Adipex-P 37.5 mg Tab) 1 Tablets By Mouth Every day Other obesity Pickup at [facility] #[id number]\.br\ Pharmacy Information\.br\ [facility] ([facility] #[id number]: [address], [place] [phone]\.br\ Allergies\.br\ No Known Medication Allergies\.br\ Problems\.br\ Ongoing [...] health care provider or diet and nutrition representative (dietitian). This may include:\.br\ ? \.br\ Eating [...] given to you by your health care provider.[facility] Medicine Office/Clinic Noteon 77-11-7973Nrslco Medicine Office/Clinic NoteChief Complaint Adipex #5. 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 Medications Adipex-P 37.5 mg Tab, 37.5 mg= 1 tab(s), Oral, Daily Nexplanon 68 mg subcutaneous implant, SubCutaneous, Once Allergies No Known Medication Allergies Social History Alcohol - Denies (more content not included)...[facility] Comment on above:Result Comment: Electronically Signed By: [...] health care provider or diet and nutrition representative (dietitian). This may include: ? Eating fewer [...] regular exercise is e (more content not included)...[facility] CenterAmbulatory Visit Summaryon 07-63-1813Dojixdnttd Visit Summary BROOKLYNNALEJO :2000 Visit Date:02/03/2024 Ambulatory [...] Mouth Every day Other obesity Pickup at [facility] ([facility] #[id number] Pharmacy Information [facility] #[id number]: [address], [place] [phone] Allergies No Known Medication Allergies Problems Ongoing [...] you for choosing us for your care. [facility] Medicine Office/Clinic Noteon 47-15-4586Afmicg Medicine Office/Clinic NoteChief Complaint Adipex #4. Weight [...] Daily, # 30 tab(s), Refills(s) 0, Pharmacy: [facility] #[id number], cm, 02/03/24 8:01:00 EDT, Height/Length Dosing, 93, kg, 02/03/24 8:01:00 EDT, Weight Dosing Follow-up With When Contact Information AURELIO BAJWA FAAFP, Cleveland Santo, FAM, PED In 1 month [address], [place] [address]- Additional Instructions: Patient Education Exercising [...] poliovirus vaccine, inactivated more content not included)...Normal [facility] For RehabilitationComment on above:Result Comment: Electronically Signed By: Cleveland RAY DO, FAAFP\.naheed\Date and Time Signed: 02/03/24 08:35 EDT Patient Educationon 43-19-3589Vjhofxq EducationPhysical Medicine and Rehabilitation Exercising to Lose [...] health care provider or diet and nutrition representative (dietitian). This may include: ? Eating fewer [...] regular exercise is e (more content not included)...[facility] Medical CenterCHEMISTRYOrdered By: SYSTEM SYSTEM on 06-56-5259Bwdcyxadcrt [Mass/Vol]140 mg/oRKxkbwi807 - 200 mg/dLFT RemisolCholesterol in HDL [Mass/Vol]51 mg/dLInvalid Interpretation CodeFTMC RemisolCholesterol in LDL [Mass/Vol]88 mg/dLNormal<=129mg/dLFTMC RemisolCholesterol in VLDL [Mass/Vol]7 mg/dLNormal7 - 40 mg/dLFTMC RemisolGlucose post fast [Mass/Vol]99 mg/vFWgyklr62 - 99 mg/dLFT RemisolTriglyceride [Mass/Vol]37 mg/dLNormal<=149mg/dLHILLCREST [facility] Remisol Vital Signs Date TimeVital SignValuePerforming YkvsgamblZvkvlcak01-22-4389 13:40-0500Body mass index (BMI) [Ratio]36.23 kg/m2Gabby Contreras PA Work Phone: [phone]-[facility] HospitalIglpzmcrxp54-22-2977 13:40-0500Body yyfpbf259.53 kgGabby Niyah PA Work Phone: [phone] [place] [address]-05-2025 13:40-0500Diastolic blood cnvozgag55 mm[Hg]Gabby Contreras PA Work Phone: [phone] [place] [address]05-[address]25 13:40-0500Systolic blood mm[Hg]Gabby Contreras PA Work Phone: [phone] [place], [place] [address]Zdofspnrul18-14-5511 13:59-0400Body mass index (BMI) [Ratio]35.13 kg/m2Gabby Niyah PA Work Phone: [phone])656-[address] [place], [place] [address]Iqccxfjpst68-09-1406 13:59-0400Body .04 kgGabby Niyah PA Work Phone: [phone]-[facility] HospitalMuknewfhys08-89-1187 13:59-0400Diastolic blood chirtjfl88 mm[Hg]Gabby Contreras PA Work Phone: [phone])708-[address] [place], [place] [address]Qdnaicwvdo28-62-9990 13:59-0400Systolic blood bknocofp704 mm[Hg]Gabby Contreras PA Work Phone: [phone] [place], [place] [address]Prmafxibom42-79-1924 11:24-0400Body mass index (BMI) [Ratio]35.53 kg/x1JwjjssprKristy Goel [employer] Work Phone: [phone]-[facility] HospitalDgmpgkuwbn05-51-4750 11:24-0400Body hrnhyt316.31 kgKristy Goel [employer] Work Phone: [phone] [place], [place] [address]Zrpergwerl85-87-3052 11:24-0400Diastolic blood isbfxuby38 mm[Hg]Kristy Goel [employer] Work Phone: [phone]-[facility] HospitalLxplgqzzdc63-79-6143 11:24-0400Systolic blood krixlryv224 mm[Hg]Kristy Manasa [employer]ER Work Phone: [facility] HospitalLghviqavza46-54-0403 15:04-0400Body mass index (BMI) [Ratio]34.58 kg/m2Amy Niyah PA Work Phone: [facility] HospitalUjhkkwdvcz63-60-3684 15:04-0400Body .32 kgGabby CHANEL Work Phone: [phone])234-[facility] HospitalXlrvyaowia62-22-7223 15:04-0400Diastolic blood vtckkttu40 mm[Hg]Gabby CHANEL Work Phone: [facility] HospitalPrtnbripuw47-02-5856 15:04-0400Systolic blood ivuzdbke993 mm[Hg]Gabby CHANEL Work Phone: [phone]-[facility] HospitalRbfneihkhc10-92-8847 15:04-0400Body mass index (BMI) [Ratio]33.83 kg/d4Sfffq Servando DO Work Phone: [phone])581-[address] [place], [place] [address]Bjpyufjjtb06-30-7743 15:04-0400Body yruilm089.96 kgCorey Servando DO Work Phone: [phone]-[facility] HospitalKepmpvojga42-10-6373 15:04-0400Diastolic blood wynnislr06 mm[Hg]Jessie Servando DO Work Phone: [phone]-[facility] HospitalJeff[facility] HospitalUujboexjvk18-97-4804 15:04-0400Systolic blood cfwodzgo282 mm[Hg]Jessie Esrvando DO Work Phone: [phone] [place], [place] [address]Kkndpbjebk68-55-1037 14:37-0400Body mass index (BMI) [Ratio]32.79 kg/m2Amy Niyah PA Work Phone: [facility] HospitalYreeclqqax53-52-3662 14:37-0400Body fvxicz016.65 kgGabby CHANEL Work Phone: [facility] HospitalOfbaanlhaw54-41-7266 14:37-0400Diastolic blood zaxzsdtf91 mm[Hg]Gabby CHANEL Work Phone: [facility] HospitalUljojtblgu26-62-7052 14:37-0400Systolic blood mhdipujs512 mm[Hg]Gabby CHANEL Work Phone: [facility] HospitalZyouwkrwfq96-87-8069 09:35-0400Body mass index (BMI) [Ratio]32.11 kg/i7Dnhnp Servando DO Work Phone: [phone] [place], [place] [address]Xxtbfrrmyn28-93-2162 09:35-0400Body duwahv578.52 kgCorey Servando DO Work Phone: [phone])459-[address] [place], [place] [address]Nlklpnprrr24-67-2448 09:35-0400Diastolic blood cdcavkub74 mm[Hg]Jessie Servando DO Work Phone: [phone])[phone] [place], [place] [address]Aatsvpimpy92-69-4809 09:35-0400Systolic blood mm[Hg]Jessie Servando DO Work Phone: [phone])[facility] [place], [place] [address]Wefzbyrtle75-55-9261 15:37-0400Body mass index (BMI) [Ratio]31.67 kg/l3Ohaar Servando DO Work Phone: [phone] [place], [place] [address]Ifcfbwywkm26-23-6560 15:37-0400Body uoxdiy148.13 kgCorey Servando DO Work Phone: [phone])661-[address] [place], [place] [address]Jgpfzhsjiq55-75-2863 15:37-0400Diastolic blood rnbuychh90 mm[Hg]Jessie Servando DO Work Phone: [phone])371-[address] [place], [place] [address]Evzjtpmzsl45-13-2813 15:37-0400Systolic blood mm[Hg]Jessie Servando DO Work Phone: [phone])489-[address] [place], [place] [address]Gbmazdfqdo09-64-1364 09:18-0400Body mass index (BMI) [Ratio]31.15 kg/m2[facility]05-02-2025 09:18-0400Body rsqxky81.48 kgSt[address] [facility]01-13-2025 13:47-0500Body mass index (BMI) [Ratio]29.99 kg/l6Kulbs Servando DO Work Phone: [phone])288-[address] [place], [place] [address]Wlgrbpagxe74-29-5766 13:47-0500Body .8 kg Jessie Servando DO Work Phone: [phone])[facility] [facility] [place], [place] [address]Mqqcitjydl61-69-3608 13:47-0500Diastolic blood wgxrygpd12 mm[Hg]Jessie Servando DO Work Phone: [phone])[facility] [facility] [place], [place] [address]Hugbpinkwq94-03-9244 13:47-0500Systolic blood mfbalcmt261 mm[Hg]Jessie Servanod DO Work Phone: [phone] [place], [place] [address]-26-2024 14:50-0400Body mass index (BMI) [Ratio]29.1 kg/i3Mueui Servando DO Work Phone: [phone])[address] [place], [place] 94[address]-26-2024 14:50-0400Body cykfdr26.99 kgCorey Servando DO Work Phone: [phone])[address] [place] [address]-26-2024 14:50-0400Diastolic blood pzwrkryj39 mm[Hg]Jessie Servando DO Work Phone: [phone])[address] [place], [place] 9495[address]-26-2024 14:50-0400Systolic blood aihuwlwm264 mm[Hg]Jessie Servando DO Work Phone: 1(762)[address] [place], [place] [address]-27-2024 08:28-0400Blood Pressure LocationScott KAPLE 790-4530Rdmskz-OeyziRegional Medical Center06-27-2024 08:28-0400Body sqximouvgce59.88 [degF]Cleveland RAY 750-9357Jokodi-EzeycRegional Medical Center06-27-2024 08:28-0400Diastolic blood bcooujhg27 mm[Hg]Cleveland RAY 540-1291Wpdova-TtdonRegional Medical Center06-27-2024 08:28-0400Heart rate78 /minScott KAPLE 360-0677Kddeoc-AcldvRegional Medical Center06-27-2024 08:28-0400Respiratory rate16 /minScott KAPLE 587-6278Gdtjea-ExuuyRegional Medical Center06-27-2024 08:28-4250EiJ5% (BldA) [Mass fraction]99 %Cleveland RAY [address] [place], [place] 0[address]806-27-2024 08:28-0400Systolic blood qnviiwes636 mm[Hg]Cleveland KAPLE [address] [place], [place] [address]-23-2024 08:18-0400Blood Pressure LocationScott KAPLE [address] [place], [place] [address]103[address]-23-2024 08:18-0400Body sxlzishuwbv49.88 [degF]Cleveland KAPLE [address] [place], [place] 0[address]805-23-2024 08:18-0400Diastolic blood otwlewcw74 mm[Hg]Cleveland KAPLE [address] [place], [place] [address]-23-2024 08:18-0400Heart rate80 /minScott KAPLE [address] [place], [place] [address]-23-2024 08:18-0400Respiratory rate16 /minScott KAPLE [address] [place], [place] [address]103805-23-2024 08:18-0709VkV6% (BldA) [Mass fraction]99 %Cleveland KAPLE [address] [place], [place] 0103805-23-2024 08:18-0400Systolic blood mm[Hg]Cleveland LOPEZLE 031-0799Aijuly-Gexju[address] [place], [place] 99[address]04-29-2024 07:56-0400Blood Pressure LocationScott KAPLE 689-4725Epxrar-Kiilf[address] [place], [place] 9932904-29-2024 07:56-0400Body vaiuzgmcyfy59.7 [degF]Cleveland KAPLE [address] [place], [place] 0103[address]-29-2024 07:56-0400Diastolic blood zfyofqoq86 mm[Hg]Cleveland LOPEZLE [address] [place], [place] 0103[address]-29-2024 07:56-0400Heart rate76 /minScott KAPLE 377-4112Mvwbpa-Gvmfr[address] [place], [place] [address]04-29-2024 07:56-0400Respiratory rate16 /minScott KAPLE 199-4399Uarzwj-Swvkx[address] [place], [place] 99[address]04-29-2024 07:56-2479AtX4% (BldA) [Mass fraction]99 %Cleveland KAPLE [address] [place], [place] 0103[address]-29-2024 07:56-0400Systolic blood iijuxcbl740 mm[Hg]Cleveland KAPLE [address] [place], [place] [address]103[address]-28-2024 07:54-0400Blood Pressure LocationScott KAPLE [address] [place], [place] [address]103803-28-2024 07:54-0400Body esxbvdvdbpf55.88 [degF]Cleveland KAPLE [address] [place], [place] [address]-28-2024 07:54-0400Diastolic blood nkdztinr37 mm[Hg]Cleveland KAPLE 425-5652Eppood-Djaxo[address]03-28-2024 07:54-0400Heart rate80 /minScott KAPLE 599-6131Bytfmn-Tsyzb[address] [place], [place] 9932903-28-2024 07:54-0400Respiratory rate16 /minScott KAPLE 256-2312Mghooo-Hwany[address] [place], [place] 9932903-28-2024 07:54-6524OyW1% (BldA) [Mass fraction]97 %Cleveland KAPLE 994-6965Nkcyuy-Hvymm[address]03-28-2024 07:54-0400Systolic blood pmdrrori252 mm[Hg]Cleveland KAPLE 071-8424Jqaham-Yzeys[address] [place], [place] 9932902-29-2024 08:26-0500Blood Pressure LocationScott KAPLE 606-5693Zydrqn-Dgghp[address] [place], [place] 9932902-29-2024 08:26-0500Body ctkgnkysoxk87.88 [degF]Cleveland KAPLE 855-6966Ujigvb-Knilm[address] [place], [place] 9932902-29-2024 08:26-0500Diastolic blood mm[Hg]Cleveland KAPLE 749-7012Llrnla-Ophhs[address] [place], [place] 9932902-29-2024 08:26-0500Heart rate84 /minScott KAPLE 719-3996Wbuqtn-Zjbfu[address] [place], [place] 9932902-29-2024 08:26-0500Respiratory rate16 /minScott KAPLE 505-0478Qvzykj-Uajlo[address] [place], [place] 9932902-29-2024 08:26-0881MxM3% (BldA) [Mass fraction]99 %Cleveland KAPLE 626-3031Nolcle-Hlzit[address] [place], [place] 9932902-29-2024 08:26-0500Systolic blood jviadact298 mm[Hg]Cleveland KAPLE 624-5828Usywji-Iysgh[address] [place], [place] 9932901-29-2024 08:24-0500Blood Pressure LocationScott KAPLE 199-5412Mcdupy-Syvim[address] [place], [place] 9932901-29-2024 08:24-0500Body fflqdshaqob30.88 [degF]Cleveland KAPLE 946-6457Zyiqro-Mlkca[address] [place], [place] 9932901-29-2024 08:24-0500Diastolic blood mpghujql23 mm[Hg]Cleveland KAPLE 754-4311Sdhama-Znkng[address] [place], [place] 9932901-29-2024 08:24-0500Heart rate86 /minScott KAPLE 036-6527Gwmxhx-Fidcx[address] [place], [place] 9932901-29-2024 08:24-0500Respiratory rate16 /minScott KAPLE 002-4357Bviukz-Dfgto[address] [place], [place] 9932901-29-2024 08:24-1853EnC4% (BldA) [Mass fraction]98 %Cleveland KAPLE [address] [place], [place] 0103801-29-2024 08:24-0500Systolic blood delpibjb257 mm[Hg]Cleveland KAPLE [address] [place], [place] 0103812-28-2023 07:49-0500Blood Pressure LocationScott KAPLE [address] [place], [place] 0103812-28-2023 07:49-0500Body ymhsdvshvtf62.88 [degF]Cleveland KAPLE [address] [place], [place] 0103812-28-2023 07:49-0500Diastolic blood wdlzotjp00 mm[Hg]Cleveland KAPLE [address] [place], [place] 0103812-28-2023 07:49-0500Heart rate86 /minScott KAPLE [address] [place], [place] 0103812-28-2023 07:49-0500Respiratory rate16 /minScott KAPLE 972-4263Jkctut-Nzxlt[address] [place], [place] 9932912-28-2023 07:49-9209PeE0% (BldA) [Mass fraction]97 %Cleveland KAPLE [address] [place], [place] 0103812-28-2023 07:49-0500Systolic blood zrtoogwa836 mm[Hg]Cleveland KAPLE 979-9194Jvgxvv-Loetc[address] [place], [place] 9932906-26-2023 07:40-0400Blood Pressure LocationScott KAPLE [address] [place], [place] 0103806-26-2023 07:40-0400Body pszasrkqdgi70.88 [degF]Cleveland KAPLE [address] [place], [place] 0103806-26-2023 07:40-0400Diastolic blood imrsfuhi45 mm[Hg]Cleveland KAPLE 516-6383Xvzcbq-[facility]acReg[facility] Center06-26-2023 07:40-0400Heart rate85 /minScott KAPLE 355-0747Cuqkqm-Dbvfi[address] [place], [place] 9932906-26-2023 07:40-0400Respiratory rate16 /minScott KAPLE 817-0297Lmwkqs-Cbyrl[address] [place], [place] 9932906-26-2023 07:40-3988HbN5% (BldA) [Mass fraction]100 %Cleveland LOPEZLE 895-7737Rweibh-Zundw[address] [place], [place] 9932906-26-2023 07:40-0400Systolic blood ihncdynk945 mm[Hg]Cleveland JOHNLE 417-8018Clpoyb-Ecvyc[address] [place], [place] 9932904-17-2023 14:47-0400Blood Pressure LocationScott KAPLE 481-9270Ttbtrj-Urbfc[address] [place], [place] 9932904-17-2023 14:47-0400Body ymmhqqxricu10.88 [degF]Cleveland RAY [address] [place] [address]-17-2023 14:47-0400Diastolic blood rtjkwuyd61 mm[Hg]Cleveland RAY 135-1715Nafkrj-Yehez[address] [place] [address]-17-2023 14:47-0400Heart rate78 /minScott KAPLE 102-7407Znqcdq-Fyilh[address] [place], [place] 9932904-17-2023 14:47-0400Respiratory rate16 /minScott KAPLE 612-5985Vvnvou-Zzuly[address] [place], [place] 9932904-17-2023 14:47-0447TxM8% (BldA) [Mass fraction]99 %Cleveland RAY 862-3859Atycbl-Xbcml[address] [place], [place] 9932904-17-2023 14:47-0400Systolic blood wlxewxkl176 mm[Hg]Cleveland JOHNLE 324-0334Iwoyrr-Zvvlr[address] [place] [address]-17-2023 13:14-0400Blood Pressure LocationScott KAPLE 294-2738Psvipm-Bmlpf[address] [place], [place] 9932903-17-2023 13:14-0400Body hwbzxldoiiy91.24 [degF]Clveeland KAPLE [address] [place], [place] 0103803-17-2023 13:14-0400Diastolic blood mm[Hg]Cleveland KAPLE [address] [place], [place] 0103803-17-2023 13:14-0400Heart rate76 /minScott KAPLE [address] [place], [place] 0103803-17-2023 13:14-0400Systolic blood xuezhvra283 mm[Hg]Cleveland KAPLE [address] [place], [place] 0103803-09-2023 07:53-0500Blood Pressure LocationScott KAPLE [address] [place], [place] 0103803-09-2023 07:53-0500Body lmteemcngpp91.88 [degF]Cleveland KAPLE [address] [place], [place] 0103803-09-2023 07:53-0500Diastolic blood yjscrwtm22 mm[Hg]Cleveland KAPLE 571-0805Hnlhdc-Axxcn[address] [place], [place] 9932903-09-2023 07:53-0500Heart rate69 /minScott KAPLE 204-9524Vwckib-Elvkd[address] [place], [place] 9932903-09-2023 07:53-0500Respiratory rate16 /minScott KAPLE [address] [place], [place] 0103803-09-2023 07:53-4338AzU6% (BldA) [Mass fraction]98 %Cleveland KAPLE 685-0251Fhiddm-Nycky[address] [place], [place] 9932903-09-2023 07:53-0500Systolic blood nlvqwbxo906 mm[Hg]Cleveland RAY 744-0855Powuon-CbawwSalem [facility] En[facility] Encounter DateEncounter TypeCare ProviderFacilityStart: 09-12-2025 End: 96-24-8608Grsocq Jamison CHANEL Work Phone: [facility]YNStart: 09-12-2025 End: 56-30-3357Ekqrec Jamison Contreras PA Work Phone: [facility]BGYNStart: 09-12-2025 End: 38-96-6809Flwjpemn flow aliciaGabby Contreras PA Work Phone: [facility] OBGYNComment on above:Third trimester ([facility] 34 weeks gestation of ([facility])Start: 09-12-2025 End: 92-66-8432tdopvawvogGKB RAMEYNot AvailableStart: 08-28-2025 End: 14-45-9845Okshvw Jamison Contreras PA Work Phone: [facility]BGYNStart: 08-28-2025 End: 88-28-4200Volczk Jamison Contreras PA Work Phone: [facility]BGYNStart: 08-28-2025 End: 85-26-6917Kdleipet flow aliciaGabby Niyah PA Work Phone: [facility] Erin OBGYNComment on above:Third trimester ([facility] 32 weeks gestation of ([facility])Start: 08-28-2025 End: 65-51-0265oefzbwzkcrLDH RAMEYNot AvailableStart: 08-15-2025 End: 77-46-7987Pmplcwvcx Result EncounterKristy Goel NP Work Phone: [facility] External Department UnsolicitedStart: 08-15-2025 End: 12-68-6870Nuwisblgg Result EncounterKristy Goel NP Work Phone: [facility] External Department UnsolicitedStart: 08-15-2025 End: 10-77-1580Xryrgjtb flow sheetKristy Goel NP Work Phone: [facility] OBGYNComment on above:Third trimester ([facility]); 30 weeks gestation of ([facility])Start: 08-15-2025 End: 78-37-2951nweytlvdyiUGVIAOHQ EBERLYNot AvailableStart: 08-01-2025 End: 28-78-9577Iytszbne flow Anand CHANEL Work Phone: [facility] OBGYNComment on above: size inconsistent with dates ([facility]) (Primary Dx); Third trimester ([facility]); 28 weeks gestation of ([facility])Start: 08-01-2025 End: 34-56-1049vttbezasmkDFD RAMEYNot AvailableStart: 08-01-2025 End: 19-03-1621Rmolit Jamison CHANEL Work Phone: [facility] OBGYNStart: 08-01-2025 End: 57-26-7361Cjsxby flowsCurt CHANEL Work Phone: [facility]BGYNStart: 07-18-2025 End: 83-37-7231Helvmcxwf Result EncounterCorey Servando DO Work Phone: [facility] External Department UnsolicitedStart: 07-18-2025 End: 15-62-6155Hnbqsymuk Result EncounterCorey Servando DO Work Phone: [facility] External Department UnsolicitedStart: 07-04-2025 End: 00-55-5193Iwrvcmh encounter procedureCorey Servando DO Work Phone: [facility] Work Phone: Start: 07-04-2025 End: 58-36-1226Ypaybbwy preventive med est patient 18-39 yrsCorey Servando DO Work Phone: [facility]ienvenido OBGYNComment on above:Well woman exam with routine gynecological exam; Vaginal discharge; STD exposure; Second trimester ([facility]); 24 weeks gestation of ([facility]); Diabetes mellitus screeningStart: 07-04-2025 End: 75-85-0809hhzebhltjrECOYZ FAZIONot AvailableStart: 07-04-2025 End: 43-55-3215Qbhisz flowsheetCorey Servando DO Work Phone: [facility] Erin OBGYNStart: 07-04-2025 End: 40-79-4480Fkmzoy flowsheetCorey Servando DO Work Phone: [facility] OBGYNStart: 07-04-2025 End: 54-54-6191Cbumjtzxz Result EncounterCorey Servando DO Work Phone: [facility] External Department UnsolicitedStart: 07-04-2025 End: 00-22-4506Epmnoxlb Result EncounterCorey Servando DO Work Phone: NOXM External Department UnsolicitedStart: 06-13-2025 End: 59-28-0428Winejyzfh Result EncounterCorey Servando DO Work Phone: NOSK External Department UnsolicitedStart: 06-13-2025 End: 76-69-4535Guymlprzj Result EncounterCorey Servando DO Work Phone: NOUL External Department UnsolicitedStart: 06-05-2025 End: 76-07-3912Khdtsrnw flow Anand CHANEL Work Phone: [facility] Erin OBGYNComment on above:Second trimester ([facility]); 20 weeks gestation of ([facility]); Encounter for follow-up ultrasound of anatomy ([facility])Start: 06-05-2025 End: 75-98-2382tmhdumqhuuMHM RAMEYNot AvailableStart: 06-05-2025 End: 83-89-5048Nigrvt Jamison CHANEL Work Phone: [phone] Erin OBGYNStart: 06-05-2025 End: 34-14-6697Ndvzlx Jamison CHANEL Work Phone: NOLV [facility]ienvenido OBGYNStart: 06-04-2025 End: 45-72-8701Qcrjissiw Result EncounterCorey Servando DO Work Phone: NOCA External Department UnsolicitedStart: 06-04-2025 End: 19-36-3465Xmoldjlgo Result EncounterCorey Servando DO Work Phone: [facility] External Department UnsolicitedStart: 05-21-2025 End: 78-48-9577Rjnccaisk Result EncounterCorey Servando DO Work Phone: NOZG External Department UnsolicitedStart: 05-21-2025 End: 07-37-9990Vxmkspung Result EncounterCorey Servando DO Work Phone: NOFL External Department UnsolicitedStart: 05-08-2025 End: 65-59-8530Vndzqk flowsheetCorey Servando DO Work Phone: NOFC BCP OBStart: 05-08-2025 End: 30-29-9917Rltdfj flowsheetCorey Servando DO Work Phone: NOJT BCP OBStart: 05-08-2025 End: 48-06-3098mdabodjcdsJPUOJ FAZIONot AvailableStart: 05-08-2025 End: 11-27-5434Wgihpaok flow sheetCorey Servando DO Work Phone: [facility] BCP OBComment on above:Second trimester ([facility]); 16 weeks gestation of ([facility]); Screening, , for anatomic survey ([facility])Start: 04-09-2025 End: 03-81-2052pxrithkiyaXYBIE FAZIONot AvailableStart: 04-09-2025 End: 92-55-6998Vuduvvqy flow sheetCorey Servando DO Work Phone: [facility] BCP OBComment on above:First trimester (Primary Dx)Start: 04-09-2025 End: 98-02-1364Gsjkpp flowsheetCorey Servando DO Work Phone: [facility] BCP OBStart: 04-09-2025 End: 24-89-8566Xijsbi flowsheetCorey Servando DO Work Phone: [facility] BCP OBStart: 03-19-2025 End: 78-14-7696Yezvowfnw Result EncounterCorey Servando DO Work Phone: [facility] External Department UnsolicitedStart: 03-19-2025 End: 85-96-3656Burbmquwz Result EncounterCorey Servando DO Work Phone: [facility] External Department UnsolicitedStart: 03-13-2025 ambulatoryScott A KAPLEFacility:Isak PCStart: 03-09-2025 End: 01-63-4637Hwwxix outpatient visit 5 minutesNoms Bcp Ob Servando NurseNOMS BCP OBComment on above:GA: 5g9aDcotp: 03-09-2025 End: 20-13-7379tfyekeneklQFKZF FAZIONot AvailableStart: 11-20-2024 End: 72-38-1181Syahzxw encounter procedureCorey Servando DO Work Phone: [facility] BCP OBComment on above:Nexplanon removalStart: 11-20-2024 End: 70-25-1702zgqsyoypnwJQVZA FAZIONot AvailableStart: 07-03-2024 End: 31-66-9794Kmswbdop preventive med est patient 18-39 yrsCorey Servando DO Work Phone: [facility] BCP OBComment on above:Encounter for repeat Pap smear due to previous insufficient cervical cellsStart: 07-03-2024 End: 24-63-8011Ypuvoz flowsheetCorey Servando DO Work Phone: [facility] BCP OBStart: 07-03-2024 End: 81-40-9099Tbyqkyzcg Result EncounterCorey Servando DO Work Phone: [facility] External Department UnsolicitedStart: 07-03-2024 End: 46-42-8040Wgqphxyxi Result EncounterCorey Servando DO Work Phone: [facility] External Department UnsolicitedStart: 05-04-2024 End: 35-44-6486crgnevslflMdxjb A KAPLEFacility:Isak PCStart: 05-04-2024 End: 90-37-0601Ftehfuv encounter procedureScott A KAPLE 809-0812Tawxpx-OkuwuSalem City Hospital [facility] Start: 03-30-2024 End: 96-26-0847psjmpkbanmEkguw A KAPLEFacility:Isak PCStart: 03-30-2024 End: 26-07-0260Vwdfjdq encounter procedureScott A KAPLE [phone]-LxmpzSalem City Hospital [facility] Start: 03-06-2024 End: 30-02-1711equhrduqpnBaoil A KAPLEFacility:Isak PCStart: 03-06-2024 End: 97-65-8314Bzxfcbr encounter procedureScott A KAPLE [phone]-EryfrSalem City Hospital Primary Care Start: 02-03-2024 End: 66-30-4039aovlpbcbkuKotmr A KAPLEFacility:Isak PCStart: 02-03-2024 End: 10-65-2396Oluehqw encounter procedureScott A KAPLE [phone]-YwnydSalem City Hospital Primary Care Start: 01-06-2024 End: 53-65-8145Fyqwsem encounter procedureScott A KAPLE [phone]-FevxkSalem City Hospital [facility] Start: 12-06-2023 End: 08-70-9051Nfewoet encounter procedureScott A KAPLE [phone]-GvxhuSalem City Hospital [facility] Care Start: 11-04-2023 End: 55-44-1205Icagcnc encounter procedureScott A KAPLE [phone]-HtvwfSalem City Hospital [facility] Start: 05-03-2023 End: 03-99-5429Ffulqgk encounter procedureScocali RAY 866-2620Dfektd-JvxzeSalem City Hospital [facility] Care Start: 02-22-2023 End: 07-13-9431Ynqanjc encounter procedureScocali RAY [phone]-SmlasSalem City Hospital [facility] Start: 01-22-2023 End: 43-86-9847Lgjqxps encounter procedureScocali RAY [phone]-QfzjsSalem City Hospital [facility] Start: 01-16-2023 End: 87-82-4344Ezkvxou encounter procedureScocali [facility] Start: 01-14-2023 End: 09-53-9731Rdrtzvu encounter procedureScocali [facility] [phone]-YwedzSalem City Hospital [facility] Start: 01-14-2023 End: 60-77-6957Ujly adult monitoring check doneScott Gal [facility] [phone]-XwmxaSalem City Hospital Primary [facility] Procedures DateProcedureProcedure DetailPerforming ClinicianStart: 53-80-3428Qtknh dip stick/tablet rgnt non-auto w/o micrscpAmy Niyah CHANEL Work Phone: Start: 42-05-8657Tavlf dip stick/tablet rgnt non-auto w/o micrscpAmy Niyah CHANEL Work Phone: Start: 45-96-9322Ulbbf dip stick/tablet rgnt non-auto w/o micrscpKristy Goel NP Work Phone: Start: 27-89-2840AM OB GROWTHKrbrianna Goel [employer] Work Phone: Start: 11-35-0975Onptu dip stick/tablet rgnt non-auto w/o micrscpAmy Niyah CHANEL Work Phone: [phone]: 93-95-0545IAYIQQF 1 HOURCorey Servando DO Work Phone: Start: 41-77-3608XGDELXTYY VAGINITIS (HTRX)Jessie Servando DO Work Phone: [phone]: 00-27-7849Rnczv dip stick/tablet rgnt non-auto w/o micrscpCorey Servando DO Work Phone: Start: 99-20-5311OSQ,APTIMA HPV,AGE GDLNCorey Servando DO Work Phone: Start: 13-82-3325FH OB INCOMPLETE ANATOMYCorey Servando DO Work Phone: Start: 01-60-4045IX OB ANATOMYCorey Servando DO Work Phone: Start: 34-23-1563QD OB CERVICAL LENGTHCorey Servando DO Work Phone: Start: 05-08-0893BCT, SERUM, OPEN SPINA BIFIDACorey Servando DO Work Phone: Start: 95-62-0026Dqlzz dip stick/tablet rgnt non-auto w/o micrscpCorey Servando DO Work Phone: Start: 61-85-7233Pouri dip stick/tablet rgnt non-auto w/o micrscpCorey Servando DO Work Phone: Start: 10-46-1045HYO TESTCorey Servando DO Work Phone: Start: 11-08-8630MSU INSERTION/REMOVAL OF CONTRACEPTIVE CAPSULECorey Servando DO Work Phone: Start: 94-33-2116WPIK PAP IMAGE GUIDEDCorey Servando BAJWA Work Phone: None (qualifier value)[place] Plan of Treatment DateCare ActivityDetailAuthorStart: 09-27-2025 End: 72-75-8545Dctobps encounter qtnlbisvo81/20/2025 8:50 AM EST Routine [facility] [address] [place], [id number] Jessie Al DO [address] [place] [address] [facility] Erin OBGYNStart: 09-12-2025 End: 16-80-2360Ovhpexb encounter procedureNOMS Erin OBGYNComment on above: ArrivedStart: 08-28-2025 End: 55-89-1479Xgmlthb encounter procedureNOMS Bienvenido OBGYNComment on above: ArrivedStart: 08-15-2025 End: 67-06-0799Aydoxij encounter olxoxhnox35/08/2025 11:20 AM EDT Routine [facility] [address] [facility] [place] [phone] Kristy Goel, [employer] [address] [place] [phone] [facility] OBGYNStart: 08-15-2025 End: 01-63-2567Nxpadmzjawve / ancillary services hbcrarkoek78/08/2025 11:00 AM EDT Ancillary Procedure [facility] [address] [place] [address] [facility] Erin OBGYNStart: 08-01-2025 End: 66-05-2381Rgqntpi encounter procedureNOMS Erin OBGYNComment on above: ArrivedStart: 08-01-2025 End: 11-26-7651QT for pregnancyUS OB follow up transabdominal approach Imaging Routine size inconsistent with dates ([facility]) Expected: 08/01/2025, Expires: 12/01/2025[facility] Work Phone: comment on above:Expected: 08/01/2025, Expires: 12/01/2025Start: 07-04-2025 End: 60-50-9193Oxnfaqm encounter procedureNOMS [place] OBGYNComment on above: ArrivedStart: 07-04-2025 End: 96-14-9759JTT panel - Blood by Automated countCBC Lab Routine Diabetes mellitus screening Expected: 07/04/2025 (Approximate), Expires: 07/04/2026[facility] Work Phone: comment on above:Expected: 07/04/2025 (Approximate), Expires: 07/04/2026Start: 07-04-2025 End: 50-81-7368Keveyxmrtuw of glucose 1 hour after glucose challenge for glucose tolerance testGlucose tolerance, 1 hour Lab Routine Diabetes mellitus screening Expected: 07/04/2025 (Approximate), Expires: 07/04/2026[facility] HealthcareComment on above:Expected: 07/04/2025 (Approximate), Expires: 07/04/2026Start: 06-05-2025 End: 37-76-5710Xemesoi encounter procedureNOEL CAMINO [facility] OBComment on above:Arrived Start: 06-05-2025 End: 29-51-5795GA for pregnancyUS OB limited 1+ fetuses Imaging Routine Encounter for follow-up ultrasound of anatomy ([facility]) Expected: 06/05/2025, Expires: 09/05/2025[facility] Work Phone: Comment on above:Expected: 06/05/2025, Expires: 09/05/2025Start: 05-31-2025 End: 31-46-8795Uazmfpp encounter ocouqpqun97/24/2025 8:30 AM EDT Office Visit [facility] [address] [facility] [place] [phone] Jessie Al, DO [address] [place], [place] [address] [facility] BCP OBStart: 05-08-2025 End: 73-70-4679Dpdzp fetoprotein, maternalAlpha fetoprotein, maternal Lab Routine Second trimester ([facility]) 16 weeks gestation of ([facility]) Expected: 05/08/2025 (Approximate), Expires: 11/08/2025[facility] Work Phone: comment on above:Expected: 05/08/2025 (Approximate), Expires: 11/08/2025Start: 05-08-2025 End: 19-80-5981RP for pregnancyUS OB 14+ weeks anatomy scan Imaging Routine Screening, , for anatomic survey ([facility]) Expected: 05/08/2025, Expires: 08/08/2025[facility] HealthcareComment on above:Expected: 05/08/2025, Expires: 08/08/2025Start: 05-08-2025 End: 89-71-5158Xjxfkgi encounter qosdxndrt21/01/2025 9:10 AM EDT Routine [facility] [address] [address] [address] [place] [phone] Jessie Al, DO [address] [place] [address] [facility] BCP OBStart: 04-09-2025 End: 00-15-7651Ytokmks encounter xgkhruoic11/02/2025 3:10 PM EDT Routine [facility] [address] [place] [address] Jessie Al, DO [address] [place] [address] [facility] BCP OBStart: 03-09-2025 End: 72-96-7024JSX/RhABO/Rh Lab Routine Missed menses , unspecified gestational age Expected: 03/09/2025 (Approximate), Expires: 03/09/2026[facility] HealthcareComment on above:Expected: 03/09/2025 (Approximate), Expires: 03/09/2026Start: 03-09-2025 End: 39-68-4955Dmomv type and Indirect antibody screen panel - BloodType and screen Lab Routine Missed menses , unspecified gestational age Expected: 03/09/2025 (Approximate), Expires: 03/09/2026[facility] Work Phone: comment on above:Expected: 03/09/2025 (Approximate), Expires: 03/09/2026Start: 03-09-2025 End: 07-87-7695Hovlu of abuse panel - Urine by Screen methodRapid drug screen, urine Lab Routine , unspecified gestational age Encounter for supervision of normal first in first trimester Expected: 03/09/2025 (Approximate), Expires: 03/09/2026[facility] HealthcareComment on above:Expected: 03/09/2025 (Approximate), Expires: 03/09/2026Start: 11-20-2024 End: 02-08-2011Cemnhea encounter ejfoaeynk61/13/2025 3:30 PM EST Procedure Visit [facility] [address] [address] Jessie Al, DO [address] [place], [place] [phone] [facility] OBStart: 07-03-2024 End: 94-51-8024Imkhwgl encounter sydplpdlk73/26/2024 2:20 PM EDT Procedure Visit [facility] [address] [facility] [place] [address] Jessie Al, DO [address] [place] [address] ArrivedNOEL CAMINO [facility] OBComment on above:ArrivedBacteria identified in Urine by CultureUrine culture Microbiology Routine Missed menses Ordered: 03/09/2025[facility] HealthcareComment on above:Ordered: 5CBC W Auto Differential panel - BloodCBC and differential Lab Routine Missed menses , unspecified gestational age Ordered: 03/09/2025[facility] HealthcareComment on above:Ordered: 03/09/2025ytology Cervical or vaginal smear or scraping studyPap Smear Pathology and Cytology Routine Encounter for repeat Pap smear due to previous insufficient cervical cells Ordered: 07/03/2024[facility] Healthcare Work Phone: comment on above:Ordered: 07/03/2024ytology Cervical or vaginal smear or scraping studyPap Smear Pathology and Cytology Routine Well woman exam with routine gynecological exam Ordered: 07/04/2025[facility] Healthcare Comment on above:Ordered: 07/04/2025Hemoglobin A1c/Hemoglobin.total in Blood Hemoglobin A1c Lab Routine Missed menses , unspecified gestational age Ordered: 03/09/2025[facility] HealthcareComment on above:Ordered: 03/09/2025Hepatitis B virus surface Ag [Presence] in Serum or Plasma by ImmunoassayHepatitis B surface antigen Lab Routine Missed menses , unspecified gestational age Ordered: 03/09/2025[facility] HealthcareComment on above:Ordered: 03/09/2025Hepatitis C virus Ab [Presence] in Serum or Plasma by ImmunoassayHepatitis C antibody Lab Routine Missed menses , unspecified gestational age Ordered: 03/09[facility] HealthcareComment on above:Ordered: 03/09/2025HIV-1/HIV-2 antigen/antibody combination immunoassayHIV-1 and HIV-2 antibodies Lab Routine Missed menses , unspecified gestational age Ordered: 03/09/2025[facility] HealthcareComment on above:Ordered: 03/09/2025Reagin Ab [Presence] in Serum by RPRRPR Lab Routine Missed menses , unspecified gestational age Ordered: 03/09/2025[facility] HealthcareComment on above:Ordered: 03/09/2025Rubella antibody, IgGRubella antibody, IgG Lab Routine Missed menses , unspecified gestational age Ordered: 03/09/2025[facility] HealthcareComment on above:Ordered: 03/09/2025 Immunizations Immunization DateImmunizationNotesCare OamavywnCbotywew17-06-9296clajbysrk virus vaccine, unspecified formulationScott KAPLE [phone]-PgdykSalem City Hospital Primary Cphv33-69-2790 tetanus toxoid, unspecified formulationScott KAPLE 921-8078Kmzdlt-Uqaew[address] [place], [place] 99[address]906-27-2020 tetanus toxoid, reduced diphtheria toxoid, and acellular pertussis vaccine, adsorbedScott KAPLE 165-6984Epaokr-Xeuyn[address] [place], [place] [address]-14-2017 meningococcal ACWY vaccine, unspecified formulationScott KAPLE 333-8400Nwqmuq-Evucs[address] [place], [place] [address]-14-2017 meningococcal B vaccine, fully recombinantScott KAPLE [phone]-Yaoqa[address] [place], [place] 9932909-12-2012 diphtheria, tetanus toxoids and acellular pertussis vaccineScott KAPLE [address] [place], [place] [address]-12-2012HPV, unspecified formulationScott KAPLE [phone]-Djmpp[address] [place], [place] [address]32[address]-12-2012 meningococcal ACWY vaccine, unspecified formulationScott KAPLE 556-9300Sajqdp-Qqjjb[address] [place], [place] [address]32905-27-2005DTaP, unspecified formulationScott KAPLE 564-8729Deamze-Zeaxa[address] [place], [place] 9932905-27-2005 measles, mumps and rubella virus vaccineScott KAPLE 690-7403Mtocmr-Zdrnu[address] [place], [place] 9932905-27-2005 poliovirus vaccine, unspecified formulationScott KAPLE 304-7151Jdgdyg-Tilex[address] [place], [place] 9932909-16-2003 diphtheria, tetanus toxoids and acellular pertussis vaccineScott KAPLE 390-2715Ubklqz-Hjdla[address] [place], [place] 9932909-16-2003 haemophilus influenzae type b vaccine, PRP-OMP conjugateScott KAPLE 568-1713Ceaudh-Rhoqt[address] [place], [place] 9932909-16-2003 hepatitis B vaccine, pediatric or pediatric/adolescent dosageScott KAPLE 232-8171Pcnvxq-Bcouc[address] [place], [place] 9932909-16-2003 poliovirus vaccine, unspecified formulationScott KAPLE 341-0949Ieycyz-Tmflk[address] [place] [address] Primary Rxtf31-80-9804 varicella virus vaccineScott KAPLE 047-8619Jhowlh-Grqkk[address] [place] [address] Primary Ikfd13-28-8607 hepatitis B vaccine, pediatric or pediatric/adolescent dosageScott KAPLE 955-7668Lquskq-Hhmkv[address] [place] [address] Primary Kwur18-31-5543 measles, mumps and rubella virus vaccineScott KAPLE 447-9477Frfpwv-Ywikk[address] [place] [address] Primary Ndbr43-30-0627 varicella virus vaccineScott KAPLE 874-4377Huacvn-Jinuc[address] [place] [address] Primary Jeuv11-60-0466 hepatitis B vaccine, pediatric or pediatric/adolescent dosageScott KAPLE 655-6289Kjgios-Jmghr[address] [place], [place] 9932902-29-2000 poliovirus vaccine, unspecified formulationScott KAPLE 458-9398Kiyudu-Gjssw[address] [place] [address] Primary Tzel01-94-0393 poliovirus vaccine, unspecified formulationScott KAPLE 070-0035Zzedyk-Kjoez[address] [place] [address] Primary CareNEGATED: Highlighted row has not occurred!57-27-2713irpyqqmib virus vaccine, unspecified formulationScott KAPLE [phone]-Fltmm[address] [place] [address] Primary Care Payers DatePayer CategoryPayerPolicy [id number] [facility] Member Subscriber Plan / Payer (Effective 2021-Present) Name: Alejo Overton Relation to Subscriber: Self Name: Alejo Overton PayerID: Not on file Type: Not on file Address: [facility] [address] [place] [id number] BCBS [id number] 2021-Present [phone] [facility] [id number] [place] [id number] [id number] 2.16.840.1.612361.3.57[id number] 2.16.840.1.985859.3.57[id number] 2.16.840.1.166452.3.57[id number] 2.16.840.1.434135.3.57[id number] 2.16.840.1.629202.3.57[id number] 2.16.840.1.762481.3.57[id number] 2.16.840.1.777695.3.57[id number] 2.16.840.1.355653.3.57[id number] 2.16.840.1.857959.3.57[id number] 2.16.840.1.874866.3.57[id number] 2.16.840.1.275967.3.57[id number] 2.16.840.1.703969.3.57[id number] 2.16.840.1.880244.3.57[id number] 2.16.840.1.284361.3.57[id number] 2.16.840.1.115369.3.57[id number] 2.16.840.1.701581.3.579.2.1259 Social History DateTypeDetailFacilityStart: 01-14-2023 End: 57-74-5055Kthvpma smoking statusNever smoked tobacco (finding)[facility] Primary CareStart: 06-42-8513Folsdsb smoking statusNeverUc [facility] Primary CareStart: 07-03-2024 End: 57-60-0811Sfv Assigned At BirthFemalCincinnati Children's Hospital Medical Centertart: 07-03-2024 End: 85-71-3912Sjcdurexx beverage intakeCurrent drinker of alcohol (finding)[facility] HealthcareStart: 07-03-2024 End: 53-64-9413Vudusqw of Social functionMOAB REGIONAL HOSPITAL HealthcareStart: 55-16-3696Zxtaakt CommentAlcohol: monthly or less. Caffeine: noneNOMI HealthcareStart: 1999 Sex assigned at birthNot on [facility] HealthcareStart: 03-43-6416MpsaiitrjTSGH Healthcare Functional Status TrfxWtvdfqkdxuTgasbhKmlqtbbz27-55-2380Usrxalytte StatusN/[facility] Primary Iczv55-04-6335Yszucxmhhm StatusN/[facility] Primary Dstv50-72-5551Vetyvepufi StatusN/[facility] Primary Hgfa62-84-9850Qpugjbmkse StatusN/[facility] Care 15-33-3699Lbdvtwnkta StatusN/[facility] Primary Kysu05-80-4192 Functional StatusN/[facility] Primary Oqfq99-49-0388Rkuayzsadj StatusN/[facility] Primary Rlid98-18-7803Rzalsqruee StatusN/A [facility] Primary Hfxk86-21-3608Pcvizxvdrz StatusN/AFSamaritan North Health Center Primary Ersi19-24-9144Cqpdsowslg StatusN/[facility] Primary Evxd35-95-2113Zaixvdpqqy StatusN/[facility] Care Clinical Notes 01-14-2023 to 09-12-2025 Note Date & CvqvOyjuOsuqqikg98-17-7909 History of Present illness Narrative* MAITE Bravo [...] was 01/04/2025. Assessment/Plan ICD-10-CM 1. Third trimester ([facility]) Z34.93 POCT urinalysis dipstick manually resulted 2. 34 weeks gestation of ([facility]) Z3A.34 Return OB: Patient presents today for [...] behalf of: MAITE Bravo documented in this encounterJefferson Memorial HospitalDtnwgvwldk10-99-0680 History of Present illness Narrative* MAITE Bravo [...] was 01/04/2025. Assessment/Plan ICD-10-CM 1. Third trimester ([facility]) Z34.93 2. 32 weeks gestation of ([facility]) Z3A.32 POCT urinalysis dipstick manually resulted Return [...] behalf of: MAITE Bravo documented in this encounterJefferson Memorial [id number] History of Present illness Narrative* Kristy Goel [...] nursing note reviewed. Exam conducted with a docket specialist present. Vitals: Estimated body mass index is 35.53 kg/m as calculated from the following: Height as of 05/29/24: 5' 10 . Weight as of this encounter: 247 lb 9.6 oz. BP: 122/74 Patient's last menstrual period was 01/04/2025. ASSESSMENT & PLAN ICD-10-CM 1. Third trimester ([facility]) Z34.93 2. 30 weeks gestation of ([facility]) Z3A.30 POCT urinalysis dipstick manually resulted Return [...] of: Kristy Goel NP documented in this encounterJefferson Memorial [id number] History of Present illness Narrative* MAITE Bravo [...] nursing note reviewed. Exam conducted with a docket specialist present. Vitals: Estimated body mass index is 34.58 kg/m as calculated from the following: Height as of 05/29/24: 5' 10 . Weight as of this encounter: 241 lb. BP: 112/70 Patient's last menstrual period was 01/04/2025. ASSESSMENT & PLAN ICD-10-CM 1. Third trimester ([facility]) Z34.93 POCT urinalysis dipstick manually resulted 2. 28 weeks gestation of ([facility]) Z3A.28 Return OB: Patient presents today for [...] behalf of: MAITE Bravo documented in this encounterJefferson Memorial [id number] History of Present illness Narrative* Yesenia Pat [...] nursing note reviewed. Exam conducted with a docket specialist present. Vitals: Estimated body mass index is 33.83 kg/m as calculated from the following: Height as of 05/29/24: 5' 10 . Weight as of this encounter: 235 lb 12.8 oz. BP: 114/70 Patient's last menstrual period was 01/04/2025. ASSESSMENT & PLAN ICD-10-CM 1. Well woman exam with routine gynecological exam Z01.419 2. Vaginal discharge N89.8 3. STD exposure Z20.2 4. Second trimester ([facility]) Z34.92 POCT urinalysis dipstick manually resulted 5. 24 weeks gestation of ([facility]) Z3A.24 POCT urinalysis dipstick manually resulted Return OB/Annual Exam: Patient presents today for a annual exam/routine obstetrics appointment. Patient is currently [id number]. Patient states she is doing well but [...] of: Jessie Al DO documented in this encounterJefferson Memorial [id number] History of Present illness Narrative* MAITE Bravo [...] ASSESSMENT & PLAN ICD-10-CM 1. Second trimester ([facility]) Z34.92 2. 20 weeks gestation of ([facility]) Z3A.20 Return OB: Patient presents today for [...] behalf of: MAITE Bravo documented in this encounterJefferson Memorial [id number] History of Present illness Narrative* Yesenia Grantsagrario, [...] nursing note reviewed. Exam conducted with a docket specialist present. Vitals: Estimated body mass index is 32.11 kg/m as calculated from the following: Height as of 05/29/24: 5' 10 . Weight as of this encounter: 223 lb 12.8 oz. BP: 118/72 Patient's last menstrual period was 01/04/2025. ASSESSMENT & PLAN ICD-10-CM 1. Second trimester ([facility]) Z34.92 POCT urinalysis dipstick manually resulted Alpha fetoprotein, maternal Alpha fetoprotein, maternal 2. 16 weeks gestation of ([facility]) Z3A.16 POCT urinalysis dipstick manually resulted Alpha fetoprotein, maternal Alpha fetoprotein, maternal 3. Screening, , for anatomic survey ([facility]) Z36.89 US OB 14+ weeks anatomy scan Patient presents today for a routine obstetrics appointment. Patient is currently 16w1d with a Estimated Date of Delivery: 10/22/25. Pt given msAFP order and anatomy scan order to have obtained. Pt to return in 4 weeks for scheduled OB appt. Documented by Yesenia Pat LPN on behalf of: Jessie Servando, DO documented in this encounterJefferson Memorial [id number] History of Present illness Narrative* Yvonne Brice [...] nursing note reviewed. Exam conducted with a docket specialist present. Vitals: Estimated body mass index is [...] or undercooked meat, and stay away from [facility]. Patient has been consulted regarding any [...] of: Gabby Contreras PA-C documented in this encounterJefferson Memorial [id number] History of Present illness Narrative* Jacinda Storm [...] or undercooked meat, and stay away from [facility]. Patient has also been advised to [...] by: Jacinda Storm LPN documented in this encounterJefferson Memorial [id number] History of Present illness Narrative* Shannon DON [...] nursing note reviewed. Exam conducted with a docket specialist present. Vitals: Estimated body mass index is [...] of: Jessie Al DO documented in this encounterJefferson Memorial [id number] History of Present illness Narrative* Shannon Tomas [...] nursing note reviewed. Exam conducted with a docket specialist present. Vitals: Estimated body mass index is [...] of: Jessie Al DO documented in this encounterJefferson Memorial [id number] Hospital Discharge instructions Patient Education 05/04/2024 08:46:07 [...] health care provider or diet and nutrition representative (dietitian). This may include: ?Eating fewer calories. [...] provider. Document Revised: 12/21/2021 Document Reviewed: 12/21/2021 [employer] Patient Education 2022 [email or web address]. Follow Up Care 02/03/2024 08:31:57 With:AURELIO BAJWA FAAFP, Cleveland Santo, DAE, PED Address: [place] [address]- When:Within 6 Month(s) [facility] 06-27-2024 NotePatient Education Physical [...] health care provider or diet and nutrition representative (dietitian). This may include: ? Eating fewer [...] Summary ? Getting r (more content not included)...[facility]05-23-2024 Hospital Discharge instructions Patient Education 03/30/2024 08:42:21 [...] numbers. This can be done either in [place] or metric measurements. Note that charts and online BMI calculators are available to help you find your BMI quickly and easily without having to do these calculations yourself. To calculate your BMI in [place] ([place] measurements: 1.Measure your weight in pounds [...] Centers for Disease Control and Prevention: www.cdc.gov [employer] Heart Association: www.heart.org National Heart, Lung, and Blood [place]: www.nhlbi.nih.gov Summary Body mass index (BMI) is a number that is calculated from a person's weight and height. BMI may help estimate how much of a person's weight is composed of fat. BMI can help identify thosewho may be at higher risk for certain medical problems. BMI can be measured using [place]i measurements or metric measurements. BMI charts are used to identify whether you are underweight, normal weight, overweight, or obese. This information is not intended to replace advice given to you by your health care provider. Make sure you discuss any questions you have with your health care provider. Document Revised: 07/17/2020 Document Reviewed: 05/24/2020 [employer] Patient Education 2022 [email or web address]. Follow Up Care 02/03/2024 08:30:45 With:AURELIO BAJWA FAAFP, DAE Newsome, PED Address: [address] [place] [address]- When:Within 1 Month(s) [facility] 04-29-2024 Hospital Discharge instructions [...] health care provider or diet and nutrition representative (dietitian). This may include: ?Eating fewer calories. [...] provider. Document Revised: 12/21/2021 Document Reviewed: 12/21/2021 [employer] Patient Education 2022 [email or web address]. Follow Up Care 02/03/2024 08:29:28 With:AURELIO BAJWA FAAFP, Cleveland Santo, DAE, PED Address: [address], [place] [address]- When:Within 1 Month(s) [facility] 03-28-2024 Hospital Discharge instructions [...] health care provider or diet and nutrition representative (dietitian). This may include: ?Eating fewer calories. [...] provider. Document Revised: 12/21/2021 Document Reviewed: 12/21/2021 [employer] Patient Education 2022 [email or web address]. Follow Up Care 11/04/2023 08:09:51 With:AURELIO BAJWA FAAFP, DAE Newsome, PED Address: [address], [place] [address]- When:Within 1 Month(s) [facility] 02-29-2024 Hospital Discharge instructions [...] frozen fruits, and frozen vegetables. Avoid buying lkjez-nw-ytk foods, such as pre-cut fruits and vegetables and pre-made salads. If possible, shop around to discover where you can find the best prices. Consider other retailers such as [employer] stores, larger wholesale stores, local fruit and vegetable I AM AT, and be2 markets. Do not shop when you are [...] provider. Document Revised: 08/07/2021 Document Reviewed: 08/07/2021 [employer] Patient Education 2022 [email or web address]. Follow Up Care 11/04/2023 08:09:40 With:AURELIO BAJWA FAAFP, DAE Newsome, PED Address: [address], [facility] [place] [id number]- When:Within 1 Month(s) [facility] 01-29-2024 Hospital Discharge instructions [...] including vitamins, herbs, eye drops, creams, and zmbv-soy-ocjdpuu medicines. Any problems you or family members [...] and water are not available, use hand director of hotel. ?Change your dressing as told by your [...] or a bad smell. General instructions Take umck-knb-qwyutrj and prescription medicines only as told by [...] and water are not available, use hand director of hotel. Contact your health care provider if you have problems or questions. This information is not intended to replace advice given to you by your health care provider. Make sure you discuss any questions you have with your health care provider. Document Revised: 07/16/2022 Document Reviewed: 07/16/2022 [employer] Patient Education 2022 [email or web address]. Follow Up Care 11/04/2023 08:09:24 With:AURELIO BAJWA FAAFP, DAE Newsome, PED Address: [address] [place] [address] [place] [address]- When:Within 1 Month(s) [facility] 12-28-2023 Hospital Discharge instructions [...] health care provider or diet and nutrition representative (dietitian). This may include: ?Eating fewer calories. [...] provider. Document Revised: 12/21/2021 Document Reviewed: 12/21/2021 [employer] Patient Education 2022 [email or web address]. Follow Up Care 05/03/2023 08:02:20 With:AURELIO BAJWA FAAFP, Cleveland Santo, DAE, PED Address: [address], [place] [address]- When:Within 1 Month(s) [facility] 06-26-2023 Hospital Discharge instructions [...] health care provider or diet and nutrition representative (dietitian). This may include: ?Eating fewer calories. [...] provider. Document Revised: 12/21/2021 Document Reviewed: 12/21/2021 [employer] Patient Education 2022 [email or web address]. Follow Up Care 01/22/2023 13:52:08 With:AURELIO BAJWA FAAFP, Cleveland Santo, DAE, PED Address: [place] [address]- When:Within 6 Month(s) [facility] 04-17-2023 Hospital Discharge instructions [...] frozen fruits, and frozen vegetables. Avoid buying jlsdw-xg-jbr foods, such as pre-cut fruits and vegetables and pre-made salads. If possible, shop around to discover where you can find the best prices. Consider other retailers such as [employer] stores, larger wholesale stores, local fruit and vegetable I AM AT, and be2 markets. Do not shop when you are [...] 06/28/2015 Document Revised: 10/26/2018 Document Reviewed: 10/26/2018 [employer] Patient Education 2020 [employer] Follow Up Care 01/22/2023 13:49:16 With:AURELIO BAJWA FAAFP, Cleveland Santo, DAE, PED Address: [address] [place] [address] [place] [address]- When:Within 1 Month(s) [facility] 03-17-2023 Hospital Discharge instructions [...] health care provider or diet and nutrition representative (dietitian). This may include: ?Eating fewer calories. [...] 11/27/2011 Document Revised: 11/07/2018 Document Reviewed: 11/07/2018 [employer] Patient Education 2020 [email or web address]. Follow Up Care 01/21/2023 16:09:28 With:AURELIO BAJWA FAAFP, Cleveland Santo, DAE, PED Address: [address], [place] [address]- When:Within 1 Month(s) [facility] 03-09-2023 Evaluation + Plan note Future Scheduled Tests Laboratory* Glucose Fasting 01/14/23 * Lipid Panel 01/14/23 [facility] 03-09-2023 Hospital Discharge instructions [...] frozen fruits, and frozen vegetables. Avoid buying jvynx-za-sib foods, such as pre-cut fruits and vegetables and pre-made salads. If possible, shop around to discover where you can find the best prices. Consider other retailers such as [employer] stores, larger wholesale stores, local fruit and vegetable I AM AT, and be2 markets. Do not shop when you are [...] 06/28/2015 Document Revised: 10/26/2018 Document Reviewed: 10/26/2018 [employer] Patient Education 2020 [email or web address]. Follow Up Care 12/01/2022 10:38:14 With:Cleveland RAY DO, FAAFP, FAM, PED Address: [place] [address]- When:Within 1 Year(s) [facility] Evaluation + Plan note Future Appointments Appointment Date:02/22/2023 02:40:00 PM Scheduled Provider:Cleveland RAY DO, FAAFP Location:[facility] Appointment Type:FM Open Appointment Date:03/26/2023 01:20:00 PM Scheduled Provider:Cleveland RAY DO, FAAFP Location:[facility] Appointment Type:FM Open Appointment Date:04/30/2023 01:20:00 PM Scheduled Provider:Cleveland RAY DO, FAAFP Location:[facility] Appointment Type: Open [facility] Evaluation + Plan note Future Appointments Appointment Date:03/26/2023 01:20:00 PM Scheduled Provider:Cleveland RAY DO, FAAFP Location:[facility] Appointment Type: Open Appointment Date:04/30/2023 01:20:00 PM Scheduled Provider:Cleveland RAY DO, FAAFP Location:[facility] Appointment Type: Open [facility] Evaluation + Plan note Future Appointments Appointment Date:11/04/2023 07:40:00 AM Scheduled Provider:Cleveland RAY DO, FAAFP Location:[facility] Appointment Type: Open [facility] Evaluation + Plan note Future Appointments Appointment Date:12/06/2023 08:20:00 AM Scheduled Provider:Cleveland RAY DO, FAAFP Location:[facility] Appointment Type:FM Open Appointment Date:01/06/2024 08:20:00 AM Scheduled Provider:Cleveland RAY DO, FAAFP Location:[facility] Appointment Type:FM Open Appointment Date:02/03/2024 08:00:00 AM Scheduled Provider:Cleveland RAY DO, FAAFP Location:[facility] Appointment Type:[facility] evaluation + Plan note Future Appointments Appointment Date:01/06/2024 08:20:00 AM Scheduled Provider:Cleveland RAY DO, FAAFP Location:[facility] Appointment Type: Open Appointment Date:02/03/2024 08:00:00 AM Scheduled Provider:Cleveland RAY DO, FAAFP Location:[facility] Appointment Type:[facility] Primary Care Evaluation + Plan note Future Appointments Appointment Date:02/03/2024 08:00:00 AM Scheduled Provider:Cleveland RAY DO, FAAFP Location:[facility] Appointment Type:[facility] Primary Care evaluation + Plan note Future Appointments Appointment Date:03/06/2024 07:40:00 AM Scheduled Provider:Cleveland RAY DO, FAAFP Location:[facility] Appointment Type: Open Appointment Date:03/30/2024 08:20:00 AM Scheduled Provider:Cleveland RAY DO, FAAFP Location:[facility] Appointment Type: Open Appointment Date:05/04/2024 08:20:00 AM Scheduled Provider:Cleveland RAY DO, FAAFP Location:[facility] Appointment Type:[facility] Primary Care evaluation + Plan note Future Appointments Appointment Date:03/30/2024 08:20:00 AM Scheduled Provider:Cleveland RAY DO, FAAFP Location:[facility] Appointment Type: Open Appointment Date:05/04/2024 08:20:00 AM Scheduled Provider:Cleveland RAY DO, FAAFP Location:[facility] Appointment Type:[facility] Primary Care evaluation + Plan note Future Appointments Appointment Date:05/04/2024 08:20:00 AM Scheduled Provider:Cleveland RAY DO, FAAFP Location:[facility] Appointment Type: Open [facility] Evaluation note* Diagnosis Encounter [...] of ([facility]) Screening, , for anatomic survey ([facility]) Encounter for anatomic survey documented [facility] encounter [facility]* Diagnosis Second trimester ([facility]HS-HCC) state, incidental 20 weeks gestation of ([facility]HS-HCC) Encounter for follow-up ultrasound of anatomy ([facility]) documented in this encounter [facility]* [...] Narrative No data available for this section [facility] Hospital Discharge instructions No data available for this section [facility] No data available for this section [facility] Summary Purpose Family History No Family History Records Found Advance Directives No Advanced Directives Records FoundNo Advanced Directives Records Found Additional Source Comments Patient Care team informatio n (unrecognized section and content) Team MemberRelationshipSpecialtyStart DateEnd Date Cleveland Ray MD [address] [place] [address] PCP - [facility] Medicine05/27/23Te MemberRelationshipSpecialtyStart DateEnd Date Cleveland Ray MD [address] [place] [address] PCP - [facility] Medicine05/27/23Te MemberRelationshipSpecialtyStart DateEnd Date Cleveland Ray MD [address] [place] [address] PCP - [facility]05/27/23Team MemberRelationshipSpecialtyStart DateEnd Date Cleveland Ray MD [address] [place] [address] PCP - [facility]05/27/23Team MemberRelationshipSpecialtyStart DateEnd Date Cleveland Ray MD [address] [place] [address] PCP - [facility]05/27/23Team MemberRelationshipSpecialtyStart DateEnd Date Cleveland Ray MD [address] [place] [address] PCP - [facility]05/27/23Team MemberRelationshipSpecialtyStart DateEnd Date Cleveland Ray MD [address] [place] [address] PCP - [facility]05/27/23Te MemberRelationshipSpecialtyStart DateEnd Date Cleveland Ray MD [address] [place] [address] PCP - [facility]05/27/23Te MemberRelationshipSpecialtyStart DateEnd Date Cleveland Ray MD [address] [place] [address] PCP - [facility]05/27/23 Reason for Visit (unrecogniz ed section and content) ReasonCommentsWell Women VisitReasonCommentsNexplanon RemovalReasonComments AmenorrheaReasonCommentsRoutine Visit INFORMATION SOURCE (unrecogn ized section and content) DATE CREATED AUTHOR 01/31/2025 [facility] DATE CREATED AUTHOR AUTHOR'S GLENDA RALPHION 09/14/2025 [facility] EPIC FOR RECORDS PERTAINING TO [...] BE BASED ON THE PRIMARY CLINICAL RECORDS. [employer] provides no warranty or guarantee of the accuracy or completeness of information in this document.
[2025-11-05 17:25] VITALS: BP 109/72; PULSE 82; TEMP 36.9; O2SAT 95
--- NOTE | 2025-11-05 17:25 | PC.NURSE ---
Janet, 8 day old El and Matt (FOB) arrive for follow up.. Janet states all has antoine going good. States I took he baby off the breast and started pumping because I saw blood in the shield. It hurt every time I used it Has been pumping and feeding. Pumps every 2-3 hours and gives baby any obtained milk. Giving 3+ oz per feed. would prefer to direct breastfeed because pumping is a lot of work Janet with VSS and assessment WNL. No concerns for herself at this time. Baby with VSS and assessment WNL. Was seen by Dr Javier this AM and no concerns by peds either. Baby to breast with support pillow. Dad worried as baby has not been to breast for 2 days if will latch. Positioned well with coaching, no shield and good breast support. Baby latches on 3rd attempt. Both parents pleased and note audible swallows. Minimal assistance needed for deep latch. Baby nurses 15 min and then independently switched to 2nd breast by mom. Infant latches easily and feeds well. Parents excited to see baby at the breast. is confident in her ability to continue to Breast feed baby without pain or shield use. Aware to call for concerns and of MOMS group. Family home together. Janet to be seen in office for incision check after this appointment.
== END 2025-11-05 17:30 | disposition home or self-care (01) ==
LOC: FBCO 08:46
PROVIDERS: Visit Provider Obstetrics & Gynecology
DX: Z39.1 Encounter for care and examination of lactating mother (principal)